=== PATIENT | female | born 1945 | race Caucasian/White ===

== ENCOUNTER 2016-09-01 16:13 | Inpatient (IN) | payer MEDICARE, BC ==
[~2016-09-01] VITALS: Ht 160 cm; Wt 58.0 kg
[~2016-09-01 16:13] MED LIST: DIOV160T6 PO; FOLI1 PO; LEVO75TA3 PO; LORA1TAB PO; METO25 PO; NEXI40CA PO; PRIS100T PO; THIA100T PO; XANA1TAB6 PO
[2016-09-01 16:38] LABS: MEAN CORPUSCULAR HGB CONC 36.3 % (32.0-36.0)
[2016-09-01] MEDS ORDERED: SODIUM CHLORIDE 0.9% FLUSH 5 ML FLUSH IVF PRN (16:45)
[2016-09-01] MEDS ORDERED: LORazepam 2 MG/ML VIAL IV PUSH ONE (16:45)
--- NOTE | 2016-09-01 16:54 | PD ---
HPI . I think I'm having a stroke. Chief Complaint: Neuro Time Seen by Provider: 16:35 Travel History International Travel<30 days: No Contact w/Intl Traveler<30days: No History of Present Illness HPI Patient presents with left arm and left leg numbness since about 4 AM. She states that she was in the bed. She is unsure what awakened her. She states the symptoms have persisted causing her to call 911. Patient reports that her a couple months ago. She states that they have been together since age 14. She is now living alone. PFSH Past Medical History Arthritis: Yes Asthma: No Anxiety: Yes Depression: Yes Heart Rhythm Problems: Yes (A FIB) Cancer: Yes (LEFT BREAST CA) Cardiovascular Problems: Yes High Cholesterol: No Chemotherapy: No Chest Pain: No Congestive Heart Failure: No Coronary Artery Disease: Yes Diabetes: No Diminished Hearing: Yes Endocrine: Yes Gastrointestinal Disorders: Yes (GASTRIC ULCERS) GERD: Yes Genitourinary: No Hiatal Hernia: No Hypertension: Yes Immune Disorder: No Implanted Vascular Access Dvce: No Musculoskeletal: Yes Neurologic: No Psychiatric: No Reproductive: No Respiratory: No Immunizations Current: Yes Pancreatitis: Yes Radiation Therapy: Yes Thyroid Disease: Yes (hypothyroid disease) Ulcer: Yes (peptic ulcers) Menopausal: Yes : 2 Para: 1 Miscarriage: 1 Past Surgical History Abdominal Surgery: Yes (LYSIS OF ADHESIONS ) Appendectomy: Yes Gynecologic Surgery: Yes Hysterectomy: Yes Pacemaker: No Other Surgery: Yes (COLDWELL/SINUS REPAIR) Social History Alcohol Use: Yes (drinks every day 2-3 glasses of heike jones) Tobacco Use: No (quit 20+ yrs ago smoked cigs) Substance Use: Yes (DRINKS 4 GLASSES HEIKE JONES DAILY) Allergies-Medications (Allergen,Severity, Reaction): Coded Allergies: Sulfa (Verified Allergy, Intermediate, rash, 05/18/16) Reported Meds & Prescriptions Reported Meds & Active Scripts Active Vitamin B1 (Thiamine HCl) 100 Mg Tab 100 Mg PO DAILY Metoprolol Tartrate 25 mg (Metoprolol Tartrate) 25 Mg Tab 12.5 Mg PO Q12HR 30 Days Nexium (Esomeprazole Magnesium) Esomeprazole Magnesium 40 mg Cap 40 Mg PO DAILY Reported Diovan (Valsartan) 160 Mg Tab 160 Mg PO DAILY Xanax 1 mg (Alprazolam) Alprazolam 1 mg Tab 1 Tab PO DAILY Levothyroxine 75 mcg (Levothyroxine Sodium) Unknown Strength Tab Unknown Dose PO DAILY Lorazepam 1 Mg Tab 1 Mg PO DAILY PRN Pristiq (Desvenlafaxine Succinate) 100 Mg Aleks 100 Mg PO DAILY Folate 1 Mg Tab (Folic Acid) 1 Mg Tab 1 Mg PO DAILY Review of Systems Except as stated in HPI: all other systems reviewed are Neg General / Constitutional: No: Fever, Chills Neurologic: Positive: Weakness, Focal Abnormalities, Tremor, Paresthesia (LUE> LLE), No: Change in Mentation, Slurred Speech Psychiatric: Positive: Anxiety Physical Exam Narrative GENERAL: Physically tremulous and anxious appearing woman. SKIN: Warm and dry. HEAD: Atraumatic. Normocephalic. EYES: Pupils equal and round. ENT: No nasal bleeding or discharge. Mucous membranes pink and moist. NECK: Trachea midline. Neck supple. No cervical lymphadenopathy. CARDIOVASCULAR: Regular rate and rhythm. RESPIRATORY: No accessory muscle use. Lungs are clear with full air movement throughout. GASTROINTESTINAL: Abdomen soft, non-tender, nondistended. MUSCULOSKELETAL: No obvious deformities. No edema. NEUROLOGICAL: Awake and alert. No obvious cranial nerve deficits. Motor grossly within normal limits. Normal speech. Visibly tremulous. PSYCHIATRIC: Appropriate mood and affect; insight and judgment normal. Data Data Last Documented VS Vital Signs Date Time Temp Pulse Resp B/P Pulse Ox O2 Delivery O2 Flow Rate FiO2 09/01/16 17:13 98.8 87 18 176/88 100 Orders Electrocardiogram (09/01/16 16:35) Prothrombin Time / Inr (Pt) (09/01/16 16:35) Complete Blood Count With Diff (09/01/16 16:35) Comprehensive Metabolic Panel (09/01/16 16:35) Creatine Kinase (Cpk) (09/01/16 16:35) Troponin I (09/01/16 16:35) Urinalysis - C+S If Indicated (09/01/16 16:35) Ct Brain W/O Iv Contrast(Rout) (09/01/16 16:35) Chest, Single Ap (09/01/16 16:35) Ecg Monitoring (09/01/16 16:35) Iv Access Insert/Monitor (09/01/16 16:35) Oximetry (09/01/16 16:35) Sodium Chloride 0.9% Flush (Ns Flush) (09/01/16 16:45) Lorazepam Inj (Ativan Inj) (09/01/16 16:45) Ondansetron Odt (Zofran Odt) (09/01/16 17:45) Lorazepam (Ativan) (09/01/16 17:45) Cath For Specimen (09/01/16 18:15) Aspirin Chew (Aspirin Chew) (09/01/16 19:30) Labs Laboratory Tests Test 09/01/16 17:11 White Blood Count 7.6 TH/MM3 Red Blood Count 3.93 MIL/MM3 Hemoglobin 14.1 GM/DL Hematocrit 38.9 % Mean Corpuscular Volume 98.8 FL Mean Corpuscular Hemoglobin 35.9 PG Mean Corpuscular Hemoglobin 36.3 % Concent Red Cell Distribution Width 17.7 % Platelet Count 286 TH/MM3 Mean Platelet Volume 7.2 FL Neutrophils (%) (Auto) 69.4 % Lymphocytes (%) (Auto) 18.0 % Monocytes (%) (Auto) 11.8 % Eosinophils (%) (Auto) 0.2 % Basophils (%) (Auto) 0.6 % Neutrophils # (Auto) 5.3 TH/MM3 Lymphocytes # (Auto) 1.4 TH/MM3 Monocytes # (Auto) 0.9 TH/MM3 Eosinophils # (Auto) 0.0 TH/MM3 Basophils # (Auto) 0.0 TH/MM3 CBC Comment AUTO DIFF Differential Comment AUTO DIFF CONFIRMED Prothrombin Time 11.6 SEC Prothromb Time International 1.0 RATIO Ratio Sodium Level 137 MEQ/L Potassium Level 4.1 MEQ/L Chloride Level 103 MEQ/L Carbon Dioxide Level 20.6 MEQ/L Anion Gap 13 MEQ/L Blood Urea Nitrogen 14 MG/DL Creatinine 0.82 MG/DL Estimat Glomerular Filtration 69 ML/MIN Rate Random Glucose 90 MG/DL Calcium Level 9.2 MG/DL Total Bilirubin 0.6 MG/DL Aspartate Amino Transf 36 U/L (AST/SGOT) Alanine Aminotransferase 23 U/L (ALT/SGPT) Alkaline Phosphatase 85 U/L Total Creatine Kinase 64 U/L Troponin I LESS THAN 0.02 NG/ML Total Protein 7.7 GM/DL Albumin 4.2 GM/DL MDM Medical Decision Making Medical Screen Exam Complete: Yes Emergency Medical Condition: Yes Medical Record Reviewed: Yes Differential Diagnosis Differential diagnosis includes but is not limited to, CVA, anxiety, occult infection, electrolyte abnormality Narrative Course Patient presents for evaluation of left side numbness which started about 12 hours prior to presentation. She appears very anxious. CT head neg for acute change. Chest x-ray is negative to the radiologist's interpretation. Chest x-ray was independently viewed by me. CBC has an H&H of 0.1 and 38.9. White blood count 7.6. INR is 1.0. Chemistries are unremarkable. Troponin and CK are negative. 7:09 PM Patient remains in the ambulance bay. I have everything but a UA. She continues to complain with paresthesias in the left side. She is no longer tremulous. Physician Communication Physician Communication Dr. Park will admit for observation. Diagnosis Primary Impression: Paresthesias Additional Impression: Anxiety Admitting Information Admitting Physician Requests: Admit Condition: Stable Rebecca Delaney MD Sep 01, 2016 16:54
[2016-09-01 17:13] VITALS: BP 176/88; PULSE 87; RESP 18; TEMP 98.8; O2SAT 100
[2016-09-01 17:19] LABS: AUTOMATED NEUTROPHIL # 5.3 TH/MM3 (1.8-7.7); BASOPHIL % 0.6 % (0.0-2.0); EOSINOPHIL % 0.2 % (0.0-4.0); HEMATOCRIT 38.9 % (35.0-46.0); LYMPHOCYTE # 1.4 TH/MM3 (1.0-4.8); MEAN CELL VOLUME 98.8 FL (80.0-100.0); MEAN CORPUSCULAR HEMOGLOBIN 35.9 PG (27.0-34.0); MONO % 11.8 % (0.0-8.0); NEUT % 69.4 % (16.0-70.0); PLATELET COUNT 286 TH/MM3 (150-450); RED BLOOD COUNT 3.93 MIL/MM3 (4.00-5.30); RED CELL DISTRIBUTION WIDTH 17.7 % (11.6-17.2); WHITE BLOOD COUNT 7.6 TH/MM3 (4.0-11.0)
[2016-09-01 17:22] LABS: HEMO FLAGS AUTO DIFF
[2016-09-01 17:29] LABS: PROTHROMBIN TIME - PATIENT 11.6 SEC (9.8-11.6)
--- NOTE | 2016-09-01 17:37 | RADRPT ---
EXAM DATE/TIME: 09/01/2016 17:19 [facility] COMPARISON: CT BRAIN W/O CONTRAST, March 12, 2015, 0:40. INDICATIONS : Left-sided numbness and weakness. RADIATION DOSE: 45.53 CTDIvol (mGy) MEDICAL HISTORY : Hypothyroidism. Cardiovascular disease. Hypertension. Breast cancer. SURGICAL HISTORY : None. ENCOUNTER: Initial ACUITY: 1 day PAIN SCALE: 0/10 LOCATION: cranial TECHNIQUE: Multiple contiguous axial images were obtained of the head. Using automated exposure control and adj ustment of the mA and/or kV according to patient size, radiation dose was kept as low as reasonably a chievable to obtain optimal diagnostic quality images. FINDINGS: CEREBRUM: The ventricles are normal for age. No evidence of midline shift, mass lesion, hemorrhage or acute in farction. No extra-axial fluid collections are seen. POSTERIOR FOSSA: The cerebellum and brainstem are intact. The 4th ventricle is midline. The cerebellopontine angle i s unremarkable. EXTRACRANIAL: The visualized portion of the orbits is intact. SKULL: The calvaria is intact. No evidence of skull fracture. CONCLUSION: Normal examination for a patient of this age. No significant change has occurred. Monico Yanez MD on September 01, 2016 at 17:31 Board Certified Radiologist. This report was verified electronically.
[2016-09-01 17:43] LABS: ALT (GPT) 23 U/L (10-53); ANION GAP 13 MEQ/L (5-15); AST (GOT) 36 U/L (15-37); BICARBONATE 20.6 MEQ/L (21.0-32.0); BLOOD UREA NITROGEN 14 MG/DL (7-18); CHLORIDE 103 MEQ/L (98-107); GLOMERULAR FILTRATION RATE 69 ML/MIN (>89); POTASSIUM 4.1 MEQ/L (3.5-5.1); SODIUM (NA) 137 MEQ/L (136-145)
[2016-09-01] MEDS ORDERED: ONDANSETRON ODT 4 MG TAB PO ONE (17:45)
[2016-09-01] MEDS ORDERED: LORazepam 2 MG TAB SL ONE (17:45)
[2016-09-01 17:53] LABS: ALKALINE PHOSPHATASE 85 U/L (45-117); TOTAL BILIRUBIN ADULT 0.6 MG/DL (0.2-1.0)
[2016-09-01 17:57] LABS: CREATINE KINASE 64 U/L (26-192)
--- NOTE | 2016-09-01 18:07 | RADRPT ---
EXAM DATE/TIME: 09/01/2016 16:54 [facility] COMPARISON: CHEST PA & LAT, March 18, 2015, 1:49. INDICATIONS : Short of breath MEDICAL HISTORY : Cardiovascular disease. SURGICAL HISTORY : None. ENCOUNTER: Initial ACUITY: 1 day PAIN SCORE: 0/10 LOCATION: Bilateral chest FINDINGS: A single view of the chest demonstrates the lungs to be symmetrically aerated without evidence of mas s, infiltrate or effusion. The cardiomediastinal contours are unremarkable. Osseous structures are intact. CONCLUSION: No evidence of acute cardiopulmonary disease. Estevan Reed MD on September 01, 2016 at 18:05 Board Certified Radiologist. This report was verified electronically.
[2016-09-01 18:11] LABS: SCAN/DIFF AUTO DIFF CONFIRMED
[2016-09-01] MEDS ORDERED: ASPIRIN 81 MG CHEW TAB TUBE ONE (19:30)
[2016-09-01] MEDS ORDERED: SODIUM CHLORIDE 0.9% FLUSH 5 ML FLUSH FLUSH PRN (20:15)
[2016-09-01] MEDS ORDERED: ESOMEPRAZOLE MAGNESIUM 40 MG PO SCH (20:15)
[2016-09-01] MEDS ORDERED: NALOXONE HCL 0.4 MG/ML AMP IV PRN (20:15)
[2016-09-01] MEDS ORDERED: LORazepam 1 MG TAB PO PRN (20:15)
[2016-09-01] MEDS ORDERED: PILL SPLITTER OTHER PRN (21:00)
[2016-09-01 22:22] LABS: BACTERIA, URINE RARE /hpf; BLOOD, URINE NEG (NEG); COMMENT (UR) CULT NOT INDICATED; CULTURE IF INDICATED CULT NOT INDICATED; GLUCOSE,URINE NEG (NEG); KETONE, URINE TRACE mg/dL (NEG); MUCUS URINE FEW /lpf (OCC); NITRITE,URINE NEG (NEG); SQUAMOUS EPITHELIAL CELL URINE 7 /hpf (0-5); URINE COLOR YELLOW (YELLW/STRAW)
[2016-09-02] VITALS (9 sets, daily range): BP systolic 137–186; BP diastolic 67–90; PULSE 65–89; RESP 18; TEMP 97.7–98.2; O2SAT 95–98
[2016-09-02] MEDS: SODIUM CHLORIDE 0.9% FLUSH 5 ML FLUSH FLUSH SCH ×3 (01:52→20:52)
[2016-09-02] MEDS: SODIUM CHLOR 0.9% 1000 ML INJ 1,000 ML IV SCH ×4 (01:52→20:51)
[2016-09-02] MEDS: PANTOPRAZOLE SOD 40 MG DELAYED RELEASE TAB PO SCH ×2 (01:52→08:50)
[2016-09-02] MEDS: HEPARIN SODIUM - SQ 10,000 UNITS/ML VIAL SQ SCH ×2 (01:53→08:50)
[2016-09-02] MEDS: METOPROLOL TARTRATE 25 MG TAB PO SCH ×3 (01:53→20:50)
[2016-09-02] MEDS: ONDANSETRON HCL 4 MG/2 ML VIAL IVP PRN (03:25)
[2016-09-02] MEDS: ACETAMINOPHEN 325 MG TAB PO PRN ×2 (05:37→16:37)
[2016-09-02 07:56] LABS: AUTOMATED NEUTROPHIL # 3.9 TH/MM3 (1.8-7.7); BASOPHIL % 0.3 % (0.0-2.0); EOSINOPHIL % 0.7 % (0.0-4.0); HEMATOCRIT 38.4 % (35.0-46.0); HEMO FLAGS DIFF FINAL; LYMPH % 27.1 % (9.0-44.0); LYMPHOCYTE # 1.8 TH/MM3 (1.0-4.8); MEAN CELL VOLUME 100.8 FL (80.0-100.0); MEAN CORPUSCULAR HEMOGLOBIN 34.3 PG (27.0-34.0); MEAN CORPUSCULAR HGB CONC 34.1 % (32.0-36.0); NEUT % 59.9 % (16.0-70.0); PLATELET COUNT 259 TH/MM3 (150-450); RED BLOOD COUNT 3.81 MIL/MM3 (4.00-5.30); WHITE BLOOD COUNT 6.5 TH/MM3 (4.0-11.0)
[2016-09-02 08:04] LABS: BICARBONATE 23.4 MEQ/L (21.0-32.0); POTASSIUM 3.4 MEQ/L (3.5-5.1)
[2016-09-02] MEDS: VALSARTAN 160 MG TAB PO SCH (08:49)
[2016-09-02] MEDS: ALPRAZolam 1 MG TAB PO SCH (08:49)
[2016-09-02] MEDS: FOLIC ACID 1 MG TAB PO SCH (08:50)
[2016-09-02] MEDS: THIAMINE HCL 100 MG TAB PO SCH (08:50)
[2016-09-02] MEDS ORDERED: ASPIRIN 81 MG CHEW TAB CHEW SCH (09:00)
[2016-09-02] MEDS ORDERED: POTASSIUM CHLORIDE 20 MEQ CONTROLLED RELEASE TAB PO ONE (09:00)
[2016-09-02] MEDS ORDERED: [UNRECOGNIZED DRUG - OTHER] PO SCH (09:00)
[2016-09-02] MEDS ORDERED: [UNRECOGNIZED DRUG - OTHER] PO SCH (09:00)
[2016-09-02] MEDS: LEVOTHYROXINE SODIUM 75 MCG TAB PO SCH (09:01)
--- NOTE | 2016-09-02 09:14 | MH ---
cc: AISHWARYA GORDILLO,JAWED DATE OF ADMISSION: 09/01/2016 DATE OF : 1945 REASON FOR ADMISSION Numbness of the left side of the body and some slurring of speech. HISTORY OF PRESENT ILLNESS The patient is a very pleasant 70-year female who is known to our service from past few admissions. The patient is not a very good historian. As per patient yesterday she started having numbness. She does not know the exact timing. The numbness was in the left upper extremity and lower extremity and it seems like the left half of the body as per patient. Also had some slurring of speech. Later on she came to the ER. In the ER she still had some slurring of speech, but as per patient today she has no slurring of speech at all, and she has no more numbness or tingling sensation at all. She did not have any headache or dizziness or any visual or hearing problem or swallowing problem. The patient did not have any other associated symptoms. At present the patient is feeling better. She has no complaint. The patient usually drinks three drinks a day which is usual for her. She drinks Garrett Moreau, three shots a day. PAST MEDICAL HISTORY 1. Chronic pancreatitis. 2. Arthritis. 3. Anxiety. 4. Depression. 5. Atrial fibrillation history in the past. 6. History of left breast cancer. 7. Gastric ulcer. 8. GERD. 9. Hypertension. 10.History of fluid retention in the past. 11.Hypothyroidism. 12.History of lysis of adhesions. 13.Sinus surgery. MEDICATIONS Reviewed. Please see EMR. ALLERGIES The patient has allergy to SULFA DRUGS. FAMILY HISTORY Significant for cancer. REVIEW OF SYSTEMS As described above, otherwise negative for 10 systems. SOCIAL HISTORY The patient does not smoke or do any drugs. She is . Her last November. She is still missing him. She is somewhat depressed but she denies any suicidal thoughts or ideation. She drinks three shots of Garrett Moreau every day. PHYSICAL EXAMINATION GENERAL: The patient is alert and oriented x3, thin-built, seems well-nourished, lying on the bed without any apparent distress. VITAL SIGNS: Afebrile. Pulse 70, respiratory rate 18, blood pressure 186/90, pulse ox 98% on room air. HEENT: Head is atraumatic, normocephalic. Negative conjunctival injection. No icterus. Mouth unremarkable. NECK: Supple. No increased JVD. Negative thyromegaly. Central trachea. LUNGS: Clear to auscultation. HEART: S1 and 2 audible. Unable to hear any S3 gallop. ABDOMEN: Soft, nontender. No organomegaly. Positive bowel sounds. EXTREMITIES: No cyanosis or pedal edema appreciated. DEPORTATION EXAMINER: Grossly intact. SKIN: Warm and dry. PSYCHIATRIC: Appropriate mood and affect at present. INVESTIGATIONS Chest x-ray shows no evidence of acute cardiopulmonary disease. CT of the head showed normal examination for a patient of this age. No significant change has occurred. EKG was done yesterday showing normal sinus rhythm without any acute ST-T wave changes. ASSESSMENT 1. Left-sided numbness with slurring of speech, resolved. TIA rule out CVA. 2. Chronic alcohol abuse. Counseling done again. 3. History of chronic pancreatitis. 4. Depression and anxiety. 5. Hypothyroidism. 6. Hypertension, uncontrolled on admission. 7. History of gastric ulcer in the past. 8. History of atrial fibrillation in the past. PLAN The patient has been admitted to the floor. Plan for MRI, MRA, 2-D echo and carotid ultrasound. Neurology consult. IV hydration. Aspirin. PPI for GI prophylaxis. SCDs for DVT prophylaxis. Physical therapy. Continue some of the home medication. Will restart Pristiq and Synthroid. Counseled about stopping alcohol. Discussed with the patient in detail. Further recommendation to follow as per patient progress. See orders. Lizeth Chase MD JP/LEX /8:41 AM 8:54 AM
--- NOTE | 2016-09-02 11:22 | RADRPT ---
EXAM DATE/TIME: 09/02/2016 08:56 [facility] COMPARISON: No previous studies available for comparison. INDICATIONS : Transient ischemic attack. MEDICAL HISTORY : Hypothyroidism. Hypertension. Pancreatitis. Left breast carcinoma. CAD. Afib. Gastric and peptic ulce rs. Lysis of adhesions. GERD. Arthritis. Substance use. Depression. Anxiety. SURGICAL HISTORY : Appendectomy. Hysterectomy. Radiation therapy. Blood transfusions. ENCOUNTER: Initial ACUITY: 1 day PAIN SCORE: 0/10 LOCATION: Bilateral neck PEAK SYSTOLIC VELOCITIES (cm/sec): ICA/CCA RATIO: Right: 1.5 Left: 1.2 ICA: Right: 91 Left: 89 CCA: Right: 60 Left: 72 ECA: Right: 65 Left: 72 VERTEBRAL: Right: 27 antegrade Left: 48 antegrade Elevated flow velocities and ICA/CCA ratios have been found to correlate with increased degrees of vessel stenosis, calculated as percentage of diameter relative to a normal segment of distal ICA/CCA FINDINGS: RIGHT CAROTID: No significant stenosis is visualized. The waveforms are within normal limits. LEFT CAROTID: No significant stenosis is visualized. The waveforms are within normal limits. VERTEBRAL ARTERIES: Antegrade flow is seen in both vertebral arteries. MISCELLANEOUS: None. CONCLUSION: 1. Mild visible plaque formation in the carotid arteries bilaterally especially on the carotid bifurc ations. No hemodynamically significant stenosis. Monico Yanez MD on September 02, 2016 at 11:19 Board Certified Radiologist. This report was verified electronically.
--- NOTE | 2016-09-02 13:15 | RADRPT ---
EXAM DATE/TIME: 09/02/2016 10:46 [facility] COMPARISON: No previous studies available for comparison. INDICATIONS : Left sided numbness. MEDICAL HISTORY : Hypertension. Carcinoma, breast. SURGICAL HISTORY : Hysterectomy. Lt breast surgery. ENCOUNTER: Subsequent ACUITY: 1 day PAIN SCORE: 0/10 LOCATION: cranial TECHNIQUE: Multiplanar, multisequence MRI of the brain was performed without contrast. FINDINGS: CEREBRUM: The ventricles are normal for age. No evidence of midline shift, mass lesion, hemorrhage or acute in farction. No extraaxial fluid collections are seen. The pituitary gland and suprasellar cistern are normal in configuration. WHITE MATTER: Scattered punctate areas of T2 prolongation in the periventricular white matter which are likely plant equipment engineer royer ischemic in etiology. POSTERIOR FOSSA: The cerebellum and brainstem are intact. The 4th ventricle is midline. The cerebellopontine angle is unremarkable. The cerebellar tonsils are normal in position. DIFFUSION IMAGING: No focal areas of restricted diffusion are seen. No evidence of acute infarction. EXTRACRANIAL: The visualized portions of the orbits and paranasal sinuses are unremarkable. CONCLUSION: Mild chronic appearing white matter disease. No acute intracranial findings. Estevan Palacio MD on September 02, 2016 at 13:12 Board Certified Radiologist. This report was verified electronically.
--- NOTE | 2016-09-02 13:18 | RADRPT ---
EXAM DATE/TIME: 09/02/2016 10:46 [facility] COMPARISON: No previous studies available for comparison. INDICATIONS : Left sided sided numbness. MEDICAL HISTORY : Hypertension. Carcinoma, breast. SURGICAL HISTORY : Hysterectomy. Lt breast surgery. ENCOUNTER: Subsequent ACUITY: 1 day PAIN SCORE: 0/10 LOCATION: cranial Please note a normal MRA of the brain does not entirely exclude the possibility of a small aneurysm, nor the possibility of distal intracranial vessel disease. TECHNIQUE: 3D time of flight MRA was performed. Source images, multiplanar STS MIP, and 3D volume MIP reconstru ctions were reviewed. FINDINGS: There is excellent visualization of the major intracranial arteries out to the second-order branch ve ssels. There is no evidence for aneurysm, vessel truncation or stenosis, and no evidence for vascula r malformation. CONCLUSION: No acute platinum of Maki vascular abnormalities. Estevan Palacio MD on September 02, 2016 at 13:14 Board Certified Radiologist. This report was verified electronically.
--- NOTE | 2016-09-02 14:34 | EKG ---
Date Performed: 09/01/2016 Time Performed: 21:07:52 PTAGE: 71 years EKG: Sinus rhythm NORMAL ECG PREVIOUS TRACING : 05/18/2016 16.48 Since previous tracing, no significant change noted DOCTOR: Prudence White Interpretating Date/Time 09/02/2016 14:26:41
--- NOTE | 2016-09-02 14:34 | EKG ---
Date Performed: 09/02/2016 Time Performed: 04:14:06 PTAGE: 71 years EKG: Sinus rhythm NORMAL ECG PREVIOUS TRACING : 09/01/2016 21.07 Since previous tracing, no significant change noted DOCTOR: Prudence White Interpretating Date/Time 09/02/2016 14:26:34
--- NOTE | 2016-09-02 17:34 | EC ---
Study Study Date:09/02/2016 STUDY CONCLUSIONS SUMMARY LEFT VENTRICLE: The cavity size was normal. Systolic function was normal. The estimated ejection fraction was in the range of 60% to 65%. Wall motion was normal; there were no regional wall motion abnormalities. If LV function is below 40, please consider prescribing an ACEI or ARB or document rationale for non-use. PROCEDURE DATA STUDY STATUS: Elective. Procedure: Transthoracic echocardiography. Image quality was good. Scanning was performed from the parasternal, apical, and subcostal acoustic windows. Study completion: The patient tolerated the procedure well. Transthoracic echocardiography. M-mode, complete 2D, complete spectral Doppler, and color Doppler. Height: Height: 61in. Weight: Weight: 126.7lb. Body mass index: BMI: 24kg/m^2. Body surface area: BSA: 1.56m^2. Patient status: Inpatient. CARDIAC ANATOMY LEFT VENTRICLE: The cavity size was normal. Systolic function was normal. The estimated ejection fraction was in the range of 60% to 65%. Wall motion was normal; there were no regional wall motion abnormalities. AORTIC VALVE: Trileaflet; mildly thickened leaflets. Doppler: There was no stenosis. No significant regurgitation. Valve area: 3.11cm^2 (Vmax). Indexed valve area: 1.99cm^2/m^2 (Vmax). MITRAL VALVE: The valve appears to be grossly normal. Doppler: There was no evidence for stenosis. Trace regurgitation. Peak gradient: 3mm Hg (D). LEFT ATRIUM: The atrium was normal in size. ATRIAL SEPTUM: No defect or patent foramen ovale was identified. RIGHT VENTRICLE: The cavity size was normal. Systolic function was normal. PULMONIC VALVE: Not well visualized. Doppler: There was no evidence for stenosis. No significant regurgitation. TRICUSPID VALVE: The valve appears to be grossly normal. Doppler: There was no evidence for stenosis. Trace regurgitation. PERICARDIUM: There was no pericardial effusion. Patient weight: 126.7lb _Ejection fraction:_ 65-75% _Fractional shortening:_ 32% up to 5Kg 5-11.5Kg 11.6-22.9Kg 23-45Kg 45-57Kg Aortic Root 7-13 <17 13-22 17-27 17-27 LA diam 6-13 <23 24-38 33-47 37-40 RVID 10-17 7-15 7-15 7-18 8-17 LVIDd 12-22 <32 24-38 33-47 37-40 LVPW 2-4 3-6 5-7 6-8 7-8 IVS 2-4 3-6 5-7 6-8 7-8 BASIC MEASUREMENTS ADULT NORMAL Left ventricle LV internal dimension, ED, chordal 43.7 mm 43-52 level, PLAX LV internal dimension, ES, chordal 28.1 mm 23-38 level, PLAX Fractional shortening, chordal level, 36 % >29 PLAX LV posterior wall thickness, ED 6.43 mm IVS/LVPW ratio, ED *1.43 <1.3 Ventricular septum Septal thickness, ED 9.21 mm Aortic valve Leaflet separation 21 mm 15-26 BASIC MEASUREMENTS ADULT NORMAL Aortic valve Leaflet separation 21 mm 15-26 Aorta Root diameter, ED 25 mm 20-37 Left atrium Anterior-posterior dimension, ES 37 mm 19-40 Anterior-posterior dimension index, ES *2.37 cm/m^2 <2.2 LA/aortic root ratio 1.48 DOPPLER MEASUREMENTS ADULT NORMAL Main pulmonary artery Pressure, S 23 mm Hg =30 Aortic valve Peak velocity, S 105 cm/s Valve area, Vmax 3.11 cm^2 Valve area index, Vmax 1.99 cm^2/m^2 Mitral valve Peak E-wave velocity 83.4 cm/s Peak A-wave velocity 58.2 cm/s Deceleration time 218 ms 150-230 Peak gradient, D 3 mm Hg Peak E/A ratio 1.4 Maximal regurgitant velocity 332 cm/s Tricuspid valve Regurgitant peak velocity 200 cm/s Peak RV-RA gradient, S 16 mm Hg Systemic veins Estimated CVP 10 mm Hg Right ventricle RV pressure, S 26 mm Hg <30 Pulmonic valve Peak velocity, S 92.3 cm/s LEGEND: Mean values are shown as u=mean value. Asterisk (*) lopez values outside specified normal range. Prepared and signed by Vinicius Rogers [id number]
[2016-09-02] MEDS ORDERED: ENOXAPARIN SODIUM 60 MG/0.6 ML SYRINGE SQ SCH (18:00)
[2016-09-02] MEDS ORDERED: WARFARIN SOD 5 MG TAB PO SCH (18:15)
[2016-09-02] MEDS: ENOXAPARIN SODIUM 60 MG/0.6 ML SYRINGE SQ SCH (18:40)
--- NOTE | 2016-09-02 18:40 | MB ---
cc: BERTHA HORNE M.D. DATE OF CONSULTATION: 09/02/2016 REASON FOR CONSULTATION TIA. HISTORY OF PRESENT ILLNESS Ms. Harvey is a very pleasant 71-year-old woman who suddenly developed some numbness involving the left arm and left leg, also felt weak on that side with difficulty lifting the arm. She had no other symptoms at the time, no slurred speech or headache. Her symptoms have since resolved. She feels that she is back to normal at the present time. Denies any previous history of stroke or TIA. PAST MEDICAL HISTORY 1. Chronic pancreatitis. 2. Arthritis. 3. Anxiety. 4. Depression. 5. History of atrial fibrillation in the past. 6. History of breast cancer. 7. GERD. 8. Peptic ulcer disease. 9. Hypertension. 10. Fluid retention. 11. Hypothyroidism. 12. Surgery for lysis of adhesions. 13. Sinus surgery. ALLERGIES SULFA DRUGS. SOCIAL HISTORY Does not smoke. She does drink alcohol three drinks daily. NEUROLOGIC EXAMINATION VITAL SIGNS: Her blood pressure is 145/79, pulse 75, respirations 18, temperature is 97 degrees. Higher cortical function: Alert, oriented x3. Speech is normal. Cranial nerves intact. Motor exam demonstrates 5/5 strength of all groups in both upper and lower extremities. There is no drift. Fine motor skills within normal limits. Reflexes are symmetric at 1+. There is no Babinski. IMAGING MRI of the brain is normal. MRA of the brain is within normal limits. Carotid ultrasound: Mild plaquing bilaterally without any hemodynamically significant stenosis. CT of the brain is normal. LABORATORY DATA White count 6500, hemoglobin 13.1, hematocrit 38%, platelet count 259,000. PT 11.6, INR 1. Sodium is 136, potassium 3.4, chloride 103, CO2 23, BUN is 12, creatinine 0.72, GFR is 80, AST 36, ALT is 23. EKG: Normal sinus rhythm. IMPRESSION TIA, now resolved. She did have an echocardiogram as well which is normal. Ejection fraction 60-65%. Left ventricular wall motion was normal with no abnormality. The aortic valve trileaflet, no regurgitation, no stenosis. Left atrial size normal. Atrial septum was normal with no PFO. The right ventricle was normal. Pulmonic valve normal. Tricuspid valve was also normal with trace regurgitation. Pericardium is normal. RECOMMENDATION I would recommend starting the patient on anticoagulation with Coumadin at the present time because of the history of atrial fibrillation in the past, although currently she is in sinus rhythm. Cannot rule out intermittent atrial fibrillation, would suggest a Cardiology consult to consider [facility] cardiac surgeon. If there is no evidence of any objective atrial fib in the future on monitor, could then switch from Coumadin to Plavix therapy. Thank you for asking me to see the patient in consultation. MD JULIANNA Kraft/ZACHARY /6:02 PM /6:08 PM
[2016-09-03] VITALS (9 sets, daily range): BP systolic 114–177; BP diastolic 74–92; PULSE 63–86; RESP 17–21; TEMP 97.7–98.9; O2SAT 96–100
[2016-09-03 05:44] LABS: INTERNATIONAL NORMALIZED RATIO 1.1 RATIO; PROTHROMBIN TIME - PATIENT 11.7 SEC (9.8-11.6)
[2016-09-03] MEDS: ENOXAPARIN SODIUM 60 MG/0.6 ML SYRINGE SQ SCH (05:59)
[2016-09-03] MEDS: LEVOTHYROXINE SODIUM 75 MCG TAB PO SCH (05:59)
[2016-09-03] MEDS: ALPRAZolam 1 MG TAB PO SCH (08:56)
[2016-09-03] MEDS: THIAMINE HCL 100 MG TAB PO SCH (08:56)
[2016-09-03] MEDS: PANTOPRAZOLE SOD 40 MG DELAYED RELEASE TAB PO SCH (08:56)
[2016-09-03] MEDS: FOLIC ACID 1 MG TAB PO SCH (08:57)
[2016-09-03] MEDS: VALSARTAN 160 MG TAB PO SCH (08:57)
[2016-09-03] MEDS: METOPROLOL TARTRATE 25 MG TAB PO SCH ×2 (08:57→20:23)
[2016-09-03] MEDS: SODIUM CHLORIDE 0.9% FLUSH 5 ML FLUSH FLUSH SCH ×2 (08:57→20:23)
--- NOTE | 2016-09-03 09:34 | HHI.PR ---
Subjective Remarks Patient is sleepy today Has somewhat low energy No other complaint Review of system for 10 point system otherwise unremarkable Objective Objective Results - Vital Signs Date Time Temp Pulse Resp B/P Pulse Ox O2 Delivery O2 Flow Rate FiO2 09/03/16 08:00 98.7 86 17 167/85 97 09/03/16 04:48 98.7 64 18 164/77 98 09/03/16 03:26 98.0 67 18 177/90 98 09/03/16 00:43 98.2 78 21 114/74 98 09/02/16 22:47 65 09/02/16 20:46 98.0 88 18 169/80 98 09/02/16 18:50 81 09/02/16 16:15 97.8 75 18 145/79 96 09/02/16 11:23 97.8 74 18 157/70 95 I/O 09/02/16 09/02/16 09/02/16 09/03/16 09/03/16 09/03/16 07:00 15:00 23:00 07:00 15:00 23:00 Intake Total 560 ml Balance 560 ml Intake Oral 560 ml # Voids 2 4 2 3 Result Diagram: 09/02/16 0635 09/02/16 0635 Other Results Laboratory Tests Test 09/03/16 04:37 Prothrombin Time 11.7 Prothromb Time International 1.1 Ratio Physical Exam Physical Exam GENERAL: The patient is alert and oriented x3, thin-built, seems well-nourished, lying on the bed without any apparent distress. VITAL SIGNS: Reviewed HEENT: Head is atraumatic, normocephalic. Negative conjunctival injection. No icterus. Mouth unremarkable. NECK: Supple. No increased JVD. Negative thyromegaly. Central trachea. LUNGS: Clear to auscultation. HEART: S1 and 2 audible. Unable to hear any S3 gallop. ABDOMEN: Soft, nontender. No organomegaly. Positive bowel sounds. EXTREMITIES: No cyanosis or pedal edema appreciated. COMPRESS TRUCKER: Grossly intact. SKIN: Warm and dry. PSYCHIATRIC: Appropriate mood and affect at present. A/P Assessment and Plan 1. Left-sided numbness with slurring of speech, resolved. TIA, ruleD out CVA. 2. Chronic alcohol abuse. Counseling done again. 3. History of chronic pancreatitis. 4. Depression and anxiety. 5. Hypothyroidism. 6. Hypertension, uncontrolled on admission. 7. History of gastric ulcer in the past. 8. History of atrial fibrillation in the past. PLAN Reviewed report of MRI, MRA, 2-D echo and carotid ultrasound. Appreciate Neurology consult. IV hydration. On Coumadin and Lovenox because patient has a history of atrial fibrillation it is mentioned in EKG in 2014. Patient wants Eliquis as her was on it. Will switch to Eliquis. Explained side effects and potential hazards if fall. Advised to stop alcohol COMPLETELY. PATIENT UNDERSTOOD VERY WELL. Plan for cardiology consult PPI for GI prophylaxis. Lovenox/Coumadin for DVT prophylaxis. Physical therapy. Continue some of the home medication, as indicated. Will restart Pristiq and Synthroid. Counseled about stopping alcohol again in detail with anticoagulants. Discussed with the patient in detail. Further recommendation to follow as per patient progress. Lizeth Chase MD Sep 03, 2016 09:34
[2016-09-03 10:00] LABS: HDL CHOLESTEROL 123.9 MG/DL (40.0-60.0)
[2016-09-03] MEDS ORDERED: INFLUENZA VIRUS VACCINE (QUADRIVALENT) 0.5 ML SYR IM ONE (10:00)
[2016-09-03] MEDS: APIXABAN 5 MG TABLET PO SCH ×2 (11:07→20:22)
[2016-09-03] MEDS: SODIUM CHLOR 0.9% 1000 ML INJ 1,000 ML IV SCH ×2 (13:00→22:48)
--- NOTE | 2016-09-03 14:26 | MB ---
cc: MEMO DEE DATE OF CONSULTATION: 09/03/2016 REASON FOR CONSULTATION: Wanted to see the patient for a cardiology consultation. She informed me that she has seen Dr. Cesar Al's group in the past and wanted consultation from there group. I therefore placed a consult to them and will leave further cardiac recommendations to them. MD KIT Cheung/abdulkadir /11:47 AM /2:25 PM
--- NOTE | 2016-09-03 18:50 | MB ---
cc: LILLIE ANDREWS M.D. DATE OF CONSULTATION: 09/03/2016 REASON FOR CONSULTATION: Possible TIA atrial fibrillation. REQUESTING DOCTOR: Dr. Chase. HISTORY OF PRESENT ILLNESS: The patient is a 70-year-old female who presented to the emergency room. She states she had weakness in the left arm and left leg of about one hours duration. She did not have any speech deficit. She did present to the emergency room and has been seen by a Dr. Saleh who feels that she most likely had a TIA. MRI did not show any evidence of stroke. Carotid Doppler showed no significant disease. The patient states that she has a history of atrial fibrillation in the past. She has seen Dr. Al in the past with the most recent visit being in 2009. I did review his office records and see no evidence of atrial fibrillation, though she did have some PACs. Her primary is Dr. Maxi Branch, although she has not seen him in a year. She has had negative stress tests in the past and has not had any recent chest pains. ALLERGIES: SULFA. HOME MEDICATIONS: 1. Levothyroxine 75 micrograms a day. 2. Valsartan 160 milligrams a day. 3. Alprazolam 1 milligram per day. 4. Pristiq 100 milligrams a day. 5. Folic acid 1 milligram a day. SOCIAL HISTORY: The patient was born in [place]. 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 She stopped smoking 20 years ago. She does have about three Garrett Moreau drinks a day. She is with her dying in November. PAST SURGICAL HISTORY: 1. Hysterectomy. 2. Breast cancer. 3. The medical record states she has also had surgery for sinus repair. REVIEW OF SYSTEMS: Positive for depression and anxiety. She has been hypothyroid. A history of ulcers in the past and no prior history of stroke. No history of congestive heart failure. No history of diabetes. PHYSICAL EXAMINATION: GENERAL: A pleasant cooperative female who is resting comfortably in no with distress. She is awake and alert, neurologically intact. VITAL SIGNS: Blood pressure is 114/74, pulse 78 and regular. HEAD, EYES, EARS, NOSE, THROAT: Pupils react to light. Fundi not examined. The tongue is moist and midline. LUNGS: Clear. CARDIAC: Exam showed a regular rhythm. No murmurs heard. ABDOMEN: The abdomen is soft. No liver or spleen palpable. EXTREMITIES: She has intact peripheral pulses. LABORATORY: Hemoglobin was 13.1, hematocrit 38.4. Sodium 136, potassium 4.1, and will repeat at 3.4. Troponin less than 0.02. Nonfasting sugar 80, BUN 12, creatinine 0.72, cholesterol 181 with an LDL of 48 and HDL of 124. EKGS: Electrocardiogram shows sinus rhythm. IMPRESSION: 1. Probable TIA. 2. History of breast cancer. DISCUSSION AND RECOMMENDATIONS: The patient has had an echocardiogram showing normal ventricular function. No significant valvular disease. Left atrial size is normal. 1. I would agree with Dr. Saleh's recommendation to put her on warfarin. 2. I would recommend that she follow with Dr. Al as an outpatient at which time she can wear an event monitor to see whether she has had any recent episodes of atrial fibrillation. 3. It is okay with me for her to be discharged to follow with Dr. Al as an outpatient. Thank you for asking us to see her. MD DAKSHA Castillo/MIGUEL /1:35 PM /6:41 PM
[2016-09-04] VITALS (8 sets, daily range): BP systolic 139–178; BP diastolic 68–89; PULSE 63–82; RESP 18–20; TEMP 96.8–98.5; O2SAT 95–98
[2016-09-04] MEDS: LEVOTHYROXINE SODIUM 75 MCG TAB PO SCH (06:22)
[2016-09-04 07:45] LABS: INTERNATIONAL NORMALIZED RATIO 1.1 RATIO; PROTHROMBIN TIME - PATIENT 12.5 SEC (9.8-11.6)
[2016-09-04] MEDS: PANTOPRAZOLE SOD 40 MG DELAYED RELEASE TAB PO SCH (08:20)
[2016-09-04] MEDS: ALPRAZolam 1 MG TAB PO SCH (08:20)
[2016-09-04] MEDS: METOPROLOL TARTRATE 25 MG TAB PO SCH ×2 (08:20→23:10)
[2016-09-04] MEDS: APIXABAN 5 MG TABLET PO SCH ×2 (08:20→23:10)
[2016-09-04] MEDS: FOLIC ACID 1 MG TAB PO SCH (08:20)
[2016-09-04] MEDS: THIAMINE HCL 100 MG TAB PO SCH (08:20)
[2016-09-04] MEDS: VALSARTAN 160 MG TAB PO SCH (08:20)
[2016-09-04] MEDS: SODIUM CHLORIDE 0.9% FLUSH 5 ML FLUSH FLUSH SCH ×2 (08:21→23:11)
[2016-09-04] MEDS: ONDANSETRON HCL 4 MG/2 ML VIAL IVP PRN (08:21)
[2016-09-04] MEDS ORDERED: SODIUM CHLOR 0.9% 1000 ML INJ 1,000 ML IV SCH (08:26)
[2016-09-04] MEDS ORDERED: LORazepam 2 MG/ML VIAL IV PUSH PRN (08:30)
[2016-09-04] MEDS ORDERED: FLUMAZENIL 1 MG/10 ML VIAL IV PUSH PRN (08:30)
[2016-09-04] MEDS ORDERED: LORazepam 1 MG TAB PO PRN (08:30)
[2016-09-04] MEDS ORDERED: SODIUM CHLORIDE 0.9% FLUSH 5 ML FLUSH IV FLUSH PRN (08:30)
[2016-09-04] MEDS: SODIUM CHLOR 0.9% 1000 ML INJ 1,000 ML IV SCH (08:31)
--- NOTE | 2016-09-04 08:36 | HHI.PR ---
Subjective Remarks Patient is nauseous from this morning Feeling weak and tired As per RN questionable some confusion Patient is weak and ill looking. She knows she is in [facility]. She knows the president but doesn't know month year per day. Some mild abdominal discomfort No diarrhea No constipation No other complaint Review of system for 12 point system otherwise unremarkable Objective Objective Results - Vital Signs Date Time Temp Pulse Resp B/P Pulse Ox O2 Delivery O2 Flow Rate FiO2 09/04/16 04:15 98.3 70 20 150/80 95 09/04/16 00:02 98.2 71 20 148/80 96 09/03/16 21:49 98.1 71 20 170/92 96 09/03/16 19:50 98.9 75 18 160/75 100 09/03/16 16:00 98.7 63 18 162/74 100 09/03/16 12:04 97.7 69 18 166/83 99 09/03/16 08:45 68 I/O 09/03/16 09/03/16 09/03/16 09/04/16 09/04/16 09/04/16 07:00 15:00 23:00 07:00 15:00 23:00 Intake Total 920 ml Balance 920 ml Intake Oral 920 ml # Voids 3 4 2 Result Diagram: 09/02/16 0635 09/02/16 0635 Other Results Laboratory Tests Test 09/03/16 09/04/16 08:37 07:06 Triglycerides Level 85 Cholesterol Level 181 LDL Cholesterol 40 HDL Cholesterol 123.9 Cholesterol/HDL Ratio 1.46 Prothrombin Time 12.5 Prothromb Time International 1.1 Ratio Physical Exam Physical Exam GENERAL: The patient is alert, thin-built, seems Ill and weak looking, lying on the bed without any apparent distress. VITAL SIGNS: Reviewed HEENT: Head is atraumatic, normocephalic. Negative conjunctival injection. No icterus. Mouth unremarkable. NECK: Supple. No increased JVD. Negative thyromegaly. Central trachea. LUNGS: Clear to auscultation. HEART: S1 and 2 audible. Unable to hear any S3 gallop. ABDOMEN: Soft, nontender. No organomegaly. Positive bowel sounds. EXTREMITIES: No cyanosis or pedal edema appreciated. CALL CENTER ASSISTANT: Grossly intact. SKIN: Warm and dry. PSYCHIATRIC: Appropriate mood and affect at present. A/P Assessment and Plan 1. Left-sided numbness with slurring of speech, resolved. TIA, ruleD out CVA. 2. Chronic alcohol abuse. Counseling done again. 3. History of chronic pancreatitis. 4. Depression and anxiety. 5. Hypothyroidism. 6. Hypertension, uncontrolled on admission. 7. History of gastric ulcer in the past. 8. History of atrial fibrillation in the past. PLAN EtOH withdrawal will monitor in-house IV hydration Benzodiazepine on when necessary basis Thiamine Seizure precaution Discussed with installation & maintenance executive on phone continue Eliquis EKG from 2014 reviewed no atrial fibrillation discussed with installation & maintenance executive as well. Reviewed report of MRI, MRA, 2-D echo and carotid ultrasound. Appreciate Neurology consult. Eliquis. Explained side effects and potential hazards if fall. Advised to stop alcohol COMPLETELY. PATIENT UNDERSTOOD VERY WELL. PPI for GI prophylaxis. Eliquis for DVT prophylaxis. Physical therapy. Continue some of the home medication, as indicated. Will restart Pristiq and Synthroid. Counseled about stopping alcohol again in detail with anticoagulants. Discussed with the patient in detail. Discussed with RN Further recommendation to follow as per patient progress. Lizeth Chase MD Sep 04, 2016 08:36
[2016-09-04] MEDS ORDERED: SODIUM CHLORIDE 0.9% FLUSH 5 ML FLUSH IV FLUSH SCH (09:00)
--- NOTE | 2016-09-04 12:36 | HHI.PR ---
Review/Management Diagnosis TIA--resolved ? history of afib per patient Plan recommend continuing anticoagulation and follow up with Dr Al as out patient Diagnosis/Plan: Subjective Subjective Comments No acute events reported No further episodes of focal weakness or numbness Dr Roach's consult appreciated She is on eliquis. Active Medications Current Medications Medications (Trade) Dose Ordered Sig/Veronica Route Start Time Stop Time Status Last Admin (NS 1000 ml Inj) 1,000 ml @ 100 mls/hr Q10H IV 09/01/16 21:00 09/04/16 08:31 (NS Flush) 2 ml UNSCH PRN FLUSH 09/01/16 20:15 (NS Flush) 2 ml BID FLUSH 09/01/16 21:00 09/04/16 08:21 (Tylenol) 650 mg Q4H PRN PO 09/01/16 20:15 09/02/16 16:37 (Zofran Inj) 4 mg Q6H PRN IVP 09/01/16 20:15 09/04/16 08:21 (Narcan Inj) 0.4 mg UNSCH PRN IV 09/01/16 20:15 (Xanax) 1 mg DAILY PO 09/02/16 09:00 09/04/16 08:20 (Folate) 1 mg DAILY PO 09/02/16 09:00 09/04/16 08:20 (Ativan) 1 mg DAILY PRN PO 09/01/16 20:15 09/02/16 21:04 (Lopressor) 12.5 mg Q12HR PO 09/01/16 21:00 09/04/16 08:20 (Vitamin B1) 100 mg DAILY PO 09/02/16 09:00 09/04/16 08:20 Patient Own Medication PT OWN MED: [place]... DAILY PO 09/02/16 09:00 Hold (Pill Splitter) 1 ea UNSCH PRN OTHER 09/01/16 21:00 (Protonix) 40 mg DAILY PO 09/01/16 22:00 09/04/16 08:20 (Diovan) 160 mg DAILY PO 09/02/16 09:00 09/04/16 08:20 (Synthroid) 75 mcg DAILY@0600 PO 09/02/16 09:00 09/04/16 06:22 (Eliquis) 5 mg BID PO 09/03/16 09:45 09/04/16 08:20 (NS Flush) 2 ml UNSCH PRN IV FLUSH 09/04/16 08:30 IV Flush 2 ml 2 ml BID IV FLUSH 09/04/16 09:00 (NS 1000 ml Inj) 1,000 ml @ 70 mls/hr [id number] IV 09/04/16 08:26 (Ativan) 1 mg Q4H PRN PO 09/04/16 08:30 (Ativan Inj) 1 mg Q4H PRN IV PUSH 09/04/16 08:30 Allergies Allergies Coded Allergies Sulfa (Verified Allergy, Intermediate, rash, 05/18/16) Exam I&O / VS 09/03/16 09/03/16 09/04/16 15:00 23:00 07:00 Intake Total 920 ml Balance 920 ml Intake Oral 920 ml # Voids 4 2 Vital Signs Date Time Temp Pulse Resp B/P Pulse Ox O2 Delivery O2 Flow Rate FiO2 09/04/16 08:00 97.9 72 20 178/85 95 09/04/16 04:15 98.3 70 20 150/80 95 09/04/16 00:02 98.2 71 20 148/80 96 09/03/16 21:49 98.1 71 20 170/92 96 09/03/16 19:50 98.9 75 18 160/75 100 09/03/16 16:00 98.7 63 18 162/74 100 Exam Comments alert, oriented times three, speech is normal CN 2-12 normal Motor 5/5 BUE and BLE, no drift Objective Micro and Labs Laboratory Tests Test 09/04/16 07:06 Prothrombin Time 12.5 Prothromb Time International 1.1 Ratio Shakir Saleh PhD MD Sep 04, 2016 12:36
[2016-09-05 05:59] LABS: HEMATOCRIT 36.6 % (35.0-46.0); MEAN CELL VOLUME 103.6 FL (80.0-100.0); MEAN CORPUSCULAR HGB CONC 33.8 % (32.0-36.0); PLATELET COUNT 184 TH/MM3 (150-450); RED BLOOD COUNT 3.53 MIL/MM3 (4.00-5.30); RED CELL DISTRIBUTION WIDTH 17.8 % (11.6-17.2); REVIEW FLAG FINAL; WHITE BLOOD COUNT 6.1 TH/MM3 (4.0-11.0)
[2016-09-05] MEDS: LEVOTHYROXINE SODIUM 75 MCG TAB PO SCH (06:00)
[2016-09-05 06:25] LABS: BICARBONATE 25.1 MEQ/L (21.0-32.0)
[2016-09-05 07:55] VITALS: BP 155/84; PULSE 65; RESP 18; TEMP 97.6; O2SAT 98
--- NOTE | 2016-09-05 07:58 | HHI.PR ---
Subjective Subjective Remarks awakes to voice, oriented to self, place, year "2015", not sure of month mild paresthesia left arm c/o headache no vision changes no cp no sob no palpitations tele reviewed, SR, with one episode ST/PACs ? lives alone, daughter visiting from [place], staying for a week Review of Systems Constitutional Constitutional Remarks 12 point ROS completed, unreliable Vitals/Results Intake & Output 09/04/16 09/04/16 09/05/16 15:00 23:00 07:00 Intake Total 1320 ml Balance 1320 ml Intake Oral 1320 ml # Voids 1 8 Vital Signs Vital Signs Date Time Temp Pulse Resp B/P Pulse Ox O2 Delivery O2 Flow Rate FiO2 09/04/16 23:05 98.2 75 18 141/68 98 09/04/16 20:41 98.5 76 18 166/89 98 09/04/16 16:00 97.6 68 20 139/69 96 09/04/16 12:00 96.8 63 20 148/71 98 09/04/16 08:00 97.9 72 20 178/85 95 09/04/16 08:00 82 CBC/BMP: 09/05/16 0455 09/05/16 0455 Lab Results Laboratory Tests Test 09/05/16 04:55 White Blood Count 6.1 TH/MM3 Red Blood Count 3.53 MIL/MM3 Hemoglobin 12.4 GM/DL Hematocrit 36.6 % Mean Corpuscular Volume 103.6 FL Mean Corpuscular Hemoglobin 35.0 PG Mean Corpuscular Hemoglobin 33.8 % Concent Red Cell Distribution Width 17.8 % Platelet Count 184 TH/MM3 Mean Platelet Volume 7.9 FL Sodium Level 139 MEQ/L Potassium Level 4.0 MEQ/L Chloride Level 106 MEQ/L Carbon Dioxide Level 25.1 MEQ/L Anion Gap 8 MEQ/L Blood Urea Nitrogen 13 MG/DL Creatinine 0.83 MG/DL Estimat Glomerular Filtration 68 ML/MIN Rate Random Glucose 97 MG/DL Calcium Level 8.5 MG/DL Lipase 425 U/L Physical Exam General General Appearance: Well Developed, Well Nourished, No Acute Distress, Comfortable Eyes Eye Exam: Pupils Equal, Pupils Reactive Ears & Nose Ears & Nose Exam: Nasal [place]uc[place] Throat Throat Exam: Oral Muc[place] & Moist Neck Neck Exam: Neck Supple, Trachea Midline Pulmonary Resp Exam: Breath Sounds Equal Cardiology CV Exam: Regular, Good Perfusion Gastrointestinal/Abdomen GI Exam: Soft, Non-Tender, Bowel Sounds Present, Non-Distended Musculoskeletal MS Exam: Joints Intact Integumentary Skin Exam: Warm, Dry Extremeties Extremities Exam: No Edema, Pedal Pulses Palpable Neurologic Neuro Exam: Alert, Awake, Speech Clear, Moving All Extremities, No Focal Deficits VTE Prophylaxis VTE Prophylaxis Device: SCDs VTE Remarks Eliquis Assessment/Plan Assessment/Plan 1. Left-sided numbness with slurring of speech, resolved. Possible TIA 2. Chronic alcohol abuse. Counseling done again. 3. History of chronic pancreatitis. 4. Depression and anxiety. 5. Hypothyroidism. 6. Hypertension, uncontrolled on admission. 7. History of gastric ulcer in the past. 8. History of atrial fibrillation in the past, questionable. PLAN Monitor for ETOH withdrawal D/C IVF Benzodiazepine on when necessary basis Thiamine Seizure precaution Per cardiology, continue Eliquis EKG from 2014 reviewed no atrial fibrillation discussed with electrician ship as well. Reviewed report of MRI, MRA, 2-D echo and carotid ultrasound. Appreciate Neurology consult, recommends to continue Eliquis Attending discussed risk of Eliquis, and to stop ETOH COMPLETELY. PATIENT UNDERSTOOD VERY WELL. PPI for GI prophylaxis. Eliquis for DVT prophylaxis. PT/OT/ST Continue home meds Counseled about stopping alcohol again in detail with anticoagulants. CM for discharge planning [facility] Possible dc today Discussed with the patient in detail. Discussed with RN Discussed with Dr. Chase This pattient was seen by myself and Dr. Chase, this note is written on his behalf. Tita Ramsey Sep 05, 2016 07:58
[2016-09-05] MEDS ORDERED: APIX5TAB PO (08:01)
--- NOTE | 2016-09-05 08:02 | HHI.DCPOC ---
Discharge Care Plan Diagnosis: (1) TIA (transient ischemic attack) Your Health Problems Are: Loss of Movements Goals to Promote Your Health * To prevent worsening of your condition and complications * To maintain your health at the optimal level Directions to Meet Your Goals Take your medications as prescribed Follow your dietary instruction Follow activity as directed Keep your appointments as scheduled Take your immunizations and boosters as scheduled If your symptoms worsen call your PCP, if no PCP go to Urgent Care Center or Emergency Room Smoking is Dangerous to Your Health. Avoid second hand smoke Call the 24-hour hour crisis hotline for domestic abuse at Tita Ramsey Sep 05, 2016 08:01
--- NOTE | 2016-09-05 08:06 | HHI.DS ---
Discharge Summary Admission Date Sep 04, 2016 at 08:28 Discharge Date: Sep 05, 2016 Admitting Diagnosis paresthesias (1) TIA (transient ischemic attack) (2) ETOH abuse (3) History of atrial fibrillation (4) Depression (5) Paresthesias (6) Anxiety CBC/BMP: 09/05/16 0455 09/05/16 0455 Significant Findings Laboratory Tests Test 09/03/16 09/03/16 09/04/16 09/05/16 04:37 08:37 07:06 04:55 Prothrombin Time 11.7 SEC 12.5 SEC (9.8-11.6) (9.8-11.6) HDL Cholesterol 123.9 MG/DL (40.0-60.0) Red Blood Count 3.53 MIL/MM3 (4.00-5.30) Mean Corpuscular Volume 103.6 FL (80.0-100.0) Mean Corpuscular Hemoglobin 35.0 PG (27.0-34.0) Red Cell Distribution Width 17.8 % (11.6-17.2) Estimat Glomerular Filtration 68 ML/MIN (>89) Rate Lipase 425 U/L (73-393) Imaging Last Impressions Head Magnetic Resonance Angiography 09/02/16 0000 Signed Impressions: Service Date/Time: Friday, September 02, 2016 10:46 - CONCLUSION: No acute [place] vascular abnormalities. Estevan Palacio MD Carotid Artery Ultrasound 09/02/16 0000 Signed Impressions: Service Date/Time: Friday, September 02, 2016 08:56 - CONCLUSION: 1. Mild visible plaque formation in the carotid arteries bilaterally especially on the carotid bifurcations. No hemodynamically significant stenosis. Monico Yanez MD Brain MRI 09/02/16 0000 Signed Impressions: Service Date/Time: Friday, September 02, 2016 10:46 - CONCLUSION: Mild chronic appearing white matter disease. No acute intracranial findings. Estevan Palacio MD Head CT 09/01/16 1635 Signed Impressions: Service Date/Time: August 17:19 - CONCLUSION: Normal examination for a patient of this age. No significant change has occurred. Mnoico Yanez MD Chest X-Ray 09/01/165 Signed Impressions: Service Date/Time: August 16:54 - CONCLUSION: No evidence of acute cardiopulmonary disease. Estevan Reed MD Hospital Course The patient is a very pleasant 70-year female who is known to our service from past few admissions. The patient is not a very good historian. As per patient day before admit, she started having numbness. She does not know the exact timing. The numbness was in the left upper extremity and lower extremity and it seems like the left half of the body as per patient. Also had some slurring of speech. Later on she came to the ER. In the ER she still had some slurring of speech, but as per patient today she had no slurring of speech at all, and she has no more numbness or tingling sensation at all. She did not have any headache or dizziness or any visual or hearing problem or swallowing problem. The patient did not have any other associated symptoms. The patient usually drinks three drinks a day which is usual for her. She drinks Garrett Moreau, three shots a day. Pt. evaluated in ED, CT of head negative. Pt. was admitted for: 1. Left-sided numbness with slurring of speech, resolved. Possible TIA 2. Chronic alcohol abuse. Counseling done again. 3. History of chronic pancreatitis. 4. Depression and anxiety. 5. Hypothyroidism. 6. Hypertension, uncontrolled on admission. 7. History of gastric ulcer in the past. 8. History of atrial fibrillation in the past, questionable. During the course of the hospitalization, the following took place: Pt. admitted, neuro checks ordered. Neuro work up done Dr. Saleh consulted, believed pt. likely had TIA Echo done, EF 60% There was question of hx of afib, pt's margin trimmer consulted. Both cardiology and neurology recommended anticoagulant. Was monitored for ETOH withdrawal, remained stable. Benzodiazepine on when necessary basis ordered as well as Thiamine, seizure precaution EKG from 2015 reviewed no atrial fibrillation was discussed with margin trimmer as well. Reviewed report of MRI, MRA, 2-D echo and carotid ultrasound. PT/OT/ST ordered. Recommendations noted Was put on PPI for GI prophylaxis and continued on Eliquis for DVT prophylaxis. Continued on home meds Counseled about stopping alcohol in front of daughter, she needs to abstain completely. Pt. agreeable with stopping would follow up with PCP for further assistance Pt's condition improved, minimal paresthesia to left arm. Orientation improved, no slurring Stable for discharge CM consult for discharge planning to set up [facility] Discharge plan discussed with daughter, questions answered. Pt. discharged home in stable condition. Pt Condition on Discharge: Stable Discharge Disposition: Disch w/ Home Health Serv Discharge Instructions DIET: Follow Instructions for: Heart Healthy Diet Activities you can perform: Weight Bearing as Madelyn Other Activity Instructions: NO DRIVING STOP DRINKING ALCOHOL COMPLETELY Follow up Referrals: Cardiology - 2 Weeks with Cesar Al MD Neurology - 2 Weeks with Shakir Saleh PhD MD PCP Follow-up New Medications: Apixaban (Eliquis) 5 Mg Tab 5 MG PO BID stroke #60 Ref 1 TAB Continued Medications: Alprazolam (Xanax 1 mg) Alprazolam 1 mg Tab 1 TAB PO DAILY TAB () 100 Mg Nithin 100 MG PO DAILY NITHIN Esomeprazole Magnesium (Nexium) Esomeprazole Magnesium 40 mg Cap 40 MG PO DAILY gerd #30 Ref 0 CAP Folic Acid (Folate 1 Mg Tab) 1 Mg Tab 1 MG PO DAILY TAB Levothyroxine Sodium (Levothyroxine 75 mcg) Unknown Strength Tab Unknown Dose PO DAILY TAB Lorazepam (Lorazepam) 1 Mg Tab 1 MG PO DAILY PRN ANXIETY TAB Metoprolol Tartrate 25 mg (Metoprolol Tartrate 25 mg) 25 Mg Tab 12.5 MG PO Q12HR blood pressure Days 30 Ref 0 TAB Thiamine HCl (Thiamine HCl) 100 Mg Tab 100 MG PO DAILY vitamin suppliment #30 Ref 0 TAB () 160 Mg Tab 160 MG PO DAILY TAB Tita Ramsey Sep 05, 2016 08:06
[2016-09-05] MEDS: ALPRAZolam 1 MG TAB PO SCH (08:58)
[2016-09-05] MEDS: FOLIC ACID 1 MG TAB PO SCH (08:58)
[2016-09-05] MEDS: PANTOPRAZOLE SOD 40 MG DELAYED RELEASE TAB PO SCH (08:59)
[2016-09-05] MEDS: VALSARTAN 160 MG TAB PO SCH (08:59)
[2016-09-05] MEDS: SODIUM CHLORIDE 0.9% FLUSH 5 ML FLUSH FLUSH SCH (08:59)
[2016-09-05] MEDS: METOPROLOL TARTRATE 25 MG TAB PO SCH (08:59)
[2016-09-05] MEDS: APIXABAN 5 MG TABLET PO SCH (08:59)
[2016-09-05] MEDS: THIAMINE HCL 100 MG TAB PO SCH (08:59)
--- NOTE | 2016-09-05 11:49 | HHI.FF ---
Face to Face Verification Diagnosis: (1) TIA (transient ischemic attack) (2) History of atrial fibrillation (3) ETOH abuse Physical Therapy Order: Evaluate and Treat Speech Therapy Order: To Improve: Speech and communication skills, Cognitive skills Home Health Nursing Order: Medical education Signs/symptoms of disease process Nursing assessment with vital signs Service Desk Team Lead Order: To Evaluate: Living conditions/environment, Support services Order: To Provide: Long range planning, Community services I have seen patient Sita Harvey on 09/05/16. My clinical findings support the need for the requested home health care services because: Deconditioned w/ increased weakness Limited ability to care for self Impaired cognition/judgement High risk of falls I certify that my clinical findings support that this patient is homebound because: Impaired cognitive ability/safety Unsafe to leave home unassisted Need for psychosocial assistance Tita Ramsey Sep 05, 2016 11:49
[2016-09-05 12:12] VITALS: BP 172/80; PULSE 56; RESP 18; TEMP 98; O2SAT 96
[2016-11-16] MEDS ORDERED: WHEEMIS3 (15:54)
[2016-11-16] MEDS ORDERED: COMMODE 3-IN-11 MIS (15:54)
[2016-11-21] MEDS ORDERED: CHOL5000 PO (08:58)
[2016-11-21] MEDS ORDERED: VENL75XR PO (08:58)
[2016-11-21] MEDS ORDERED: THERTAB15 PO (08:58)
[2016-11-21] MEDS ORDERED: METO25TA3 PO (08:58)
[2016-11-21] MEDS ORDERED: VITA100T2 PO (08:58)
[2016-11-21] MEDS ORDERED: HYDR-3366 PO (08:58)
[2016-11-21] MEDS ORDERED: CLON1 PO (08:58)
[2016-11-21] MEDS ORDERED: DOCU1CAP39 PO (08:58)
[2016-11-21] MEDS ORDERED: APIX5TAB PO (08:58)
[2016-11-21] MEDS ORDERED: OYST250T4 PO (08:58)
[2016-11-21] MEDS ORDERED: LEVO-168 PO (08:58)
[2016-11-21] MEDS ORDERED: AMLO5 PO (08:58)
[2016-11-21] MEDS ORDERED: NEXI40CA PO (08:58)
== END 2016-09-05 14:05 | disposition home health service (06) | DRG 69 ==
LOC: NEDAMB 16:13 → NEDA 19:31 → NEPFCDU 09-02 01:35 → NEPGCP 09-03 20:13 → OBSVTOIN 09-04 08:28
PROVIDERS: ADMIT Specialist; ATTEND Specialist
DX: G45.9 Transient cerebral ischemic attack, unspecified (principal); K86.1 Other chronic pancreatitis; I48.91 Unspecified atrial fibrillation; R20.2 Paresthesia of skin; I10 Essential (primary) hypertension; E03.9 Hypothyroidism, unspecified; R47.81 Slurred speech; F41.9 Anxiety disorder, unspecified; H91.90 Unspecified hearing loss, unspecified ear; F32.9 Major depressive disorder, single episode, unspecified; M19.90 Unspecified osteoarthritis, unspecified site; I25.10 Atherosclerotic heart disease of native coronary artery without angina pectoris; K21.9 Gastro-esophageal reflux disease without esophagitis; Z85.3 Personal history of malignant neoplasm of breast; Z92.3 Personal history of irradiation; Z87.891 Personal history of nicotine dependence; Z87.11 Personal history of peptic ulcer disease; Z88.2 Allergy status to sulfonamides; F10.10 Alcohol abuse, uncomplicated
CPT/HCPCS: 70450; 70544; 70551; 71010; 80048; 80053; 80061; 81001; 82550; 82948; 83690; 84484; 85025; 85027; 85610; 93005; 93306; 93880; G0378; G8987-GP; G8988-GP; J1644; J1650; J2405; J7030

== ENCOUNTER 2016-10-07 21:08 | Observation (INO) | payer MEDICARE, BC ==
[~2016-10-07] VITALS: Ht 167.6 cm; Wt 64.3 kg
[~2016-10-07 21:08] MED LIST changes: +APIX5TAB PO
[2016-10-07 21:17] VITALS: BP 142/88; PULSE 97; RESP 20; TEMP 99.4; O2SAT 98
--- NOTE | 2016-10-07 21:35 | PD ---
HPI Chief Complaint: GI Complaint Time Seen by Provider: 21:27 Travel History International Travel<30 days: No Contact w/Intl Traveler<30days: No Traveled to known affect area: No History of Present Illness HPI As this 71-year-old female is complaining of vomiting. She says she's been vomiting throughout the day. She woke up this morning and started vomiting. She did have some diarrhea initially. She has not been able to eat anything all day. She is not complaining of abdominal pain. Review of old charts shows that she has been here with pancreatitis and alcohol withdrawal in the past. She admits to drinking alcohol on a regular basis. She has 2-3 glasses of Heike Jones per day She says she is not having abdominal pain now. She is complaining of severe nausea. She does take Ativan and Xanax for anxiety. She has a history of stroke and takes Eliquis daily PFSH Past Medical History Arthritis: Yes Asthma: No Anxiety: Yes Depression: Yes Heart Rhythm Problems: Yes (A FIB) Cancer: Yes (LEFT BREAST CA) Cardiovascular Problems: Yes High Cholesterol: No Chemotherapy: No Chest Pain: No Congestive Heart Failure: No Coronary Artery Disease: Yes Diabetes: No Diminished Hearing: Yes Endocrine: Yes Gastrointestinal Disorders: Yes (GASTRIC ULCERS) GERD: Yes Genitourinary: No Hiatal Hernia: No Hypertension: Yes Immune Disorder: No Implanted Vascular Access Dvce: No Medical other: Yes (FLUID RETENTION-ACID REFLUX) Musculoskeletal: Yes Neurologic: No Psychiatric: No Reproductive: No Respiratory: No Immunizations Current: Yes Pancreatitis: Yes Radiation Therapy: Yes Thyroid Disease: Yes (hypothyroid disease) Ulcer: Yes (peptic ulcers) Tetanus Vaccination: Unknown Influenza Vaccination: Yes ?: Not Menopausal: Yes : 2 Para: 1 Miscarriage: 1 Past Surgical History Abdominal Surgery: Yes (LYSIS OF ADHESIONS ) Appendectomy: Yes Gynecologic Surgery: Yes Hysterectomy: Yes Pacemaker: No Other Surgery: Yes (COLDWELL/SINUS REPAIR) Social History Alcohol Use: Yes (drinks every day 2-3 glasses of heike jones) Tobacco Use: No (quit 20+ yrs ago smoked cigs) Substance Use: Yes (DRINKS 4 GLASSES HEIKE JONES DAILY) Allergies-Medications (Allergen,Severity, Reaction): Coded Allergies: Sulfa (Verified Allergy, Intermediate, rash, 05/18/16) Reported Meds & Prescriptions Reported Meds & Active Scripts Active Eliquis (Apixaban) 5 Mg Tab 5 Mg PO BID Thiamine HCl 100 Mg Tab 100 Mg PO DAILY Metoprolol Tartrate 25 mg (Metoprolol Tartrate) 25 Mg Tab 12.5 Mg PO Q12HR 30 Days Nexium (Esomeprazole Magnesium) Esomeprazole Magnesium 40 mg Cap 40 Mg PO DAILY Reported [id number] 160 Mg Tab 160 Mg PO DAILY Xanax 1 mg (Alprazolam) Alprazolam 1 mg Tab 1 Tab PO DAILY Levothyroxine 75 mcg (Levothyroxine Sodium) Unknown Strength Tab Unknown Dose PO DAILY Lorazepam 1 Mg Tab 1 Mg PO DAILY PRN [id number] 100 Mg Aleks 100 Mg PO DAILY Folate 1 Mg Tab (Folic Acid) 1 Mg Tab 1 Mg PO DAILY Review of Systems General / Constitutional: No: Fever, Chills Eyes: No: Diploplia, Blurred Vision Cardiovascular: No: Chest Pain or Discomfort, Palpitations Respiratory: No: Cough Gastrointestinal: Positive: Nausea, Vomiting, No: Diarrhea, Hematochezia Genitourinary: No: Urgency, Frequency Musculoskeletal: No: Myalgias Skin: No Rash Neurologic: Positive: Weakness, No: Syncope Psychiatric: Positive: Substance Abuse Physical Exam Narrative GENERAL: Well-developed female SKIN: Warm and dry. HEAD: Atraumatic. Normocephalic. EYES: Pupils equal and round. No scleral icterus. No injection or drainage. ENT: No nasal bleeding or discharge. Mucous membranes pink and moist. NECK: Trachea midline. No JVD. CARDIOVASCULAR: Regular rate and rhythm. No murmur appreciated. RESPIRATORY: No accessory muscle use. Clear to auscultation. Breath sounds equal bilaterally. GASTROINTESTINAL: Abdomen soft, non-tender, nondistended. Hepatic and splenic margins not palpable. MUSCULOSKELETAL: No obvious deformities. No clubbing. No cyanosis. No edema. NEUROLOGICAL: Awake and alert. No obvious cranial nerve deficits. Motor grossly within normal limits. Normal speech. PSYCHIATRIC: Appropriate mood and affect; insight and judgment normal. Data Data Last Documented VS Vital Signs Date Time Temp Pulse Resp B/P Pulse Ox O2 Delivery O2 Flow Rate FiO2 10/07/16 21:17 99.4 97 20 142/88 98 Orders Complete Blood Count With Diff (10/07/16 21:31) Comprehensive Metabolic Panel (10/07/16 21:31) Lipase (10/07/16 21:31) Magnesium (Mg) (10/07/16 21:31) Sodium Chlor 0.9% 1000 Ml Inj (Ns 1000 M (10/07/16 21:45) Ondansetron Inj (Zofran Inj) (10/07/16 21:45) Pantoprazole Inj (Protonix Inj) (10/07/16 21:45) Prochlorperazine Inj (Compazine Inj) (10/07/16 22:15) Lorazepam Inj (Ativan Inj) (10/07/16 22:30) Salicylates (Aspirin) (10/07/16 22:31) Lactic Acid (10/07/16 22:31) Dext 5%-Nacl 0.9% 1000 Ml Inj (D5w-Ns 10 (10/07/16 22:45) Thiamine Inj (Thiamine Inj) (10/07/16 22:45) Beta Hydroxybutyrate (Acetone) (10/07/16 22:00) Labs Laboratory Tests Test 10/07/16 22:00 White Blood Count 5.9 TH/MM3 Red Blood Count 3.69 MIL/MM3 Hemoglobin 12.6 GM/DL Hematocrit 36.5 % Mean Corpuscular Volume 99.0 FL Mean Corpuscular Hemoglobin 34.1 PG Mean Corpuscular Hemoglobin 34.4 % Concent Red Cell Distribution Width 16.1 % Platelet Count 285 TH/MM3 Mean Platelet Volume 6.2 FL Neutrophils (%) (Auto) 82.8 % Lymphocytes (%) (Auto) 12.7 % Monocytes (%) (Auto) 3.5 % Eosinophils (%) (Auto) 0.1 % Basophils (%) (Auto) 0.9 % Neutrophils # (Auto) 4.8 TH/MM3 Lymphocytes # (Auto) 0.8 TH/MM3 Monocytes # (Auto) 0.2 TH/MM3 Eosinophils # (Auto) 0.0 TH/MM3 Basophils # (Auto) 0.1 TH/MM3 CBC Comment AUTO DIFF Differential Comment AUTO DIFF CONFIRMED Platelet Estimate NORMAL Platelet Morphology Comment NORMAL Sodium Level 131 MEQ/L Potassium Level 4.5 MEQ/L Chloride Level 93 MEQ/L Carbon Dioxide Level 18.5 MEQ/L Anion Gap 20 MEQ/L Blood Urea Nitrogen 11 MG/DL Creatinine 0.89 MG/DL Estimat Glomerular Filtration 63 ML/MIN Rate Random Glucose 79 MG/DL Calcium Level 8.5 MG/DL Magnesium Level 1.5 MG/DL Total Bilirubin 0.6 MG/DL Aspartate Amino Transf 40 U/L (AST/SGOT) Alanine Aminotransferase 16 U/L (ALT/SGPT) Alkaline Phosphatase 97 U/L Total Protein 7.4 GM/DL Albumin 3.6 GM/DL Lipase 421 U/L B-Hydroxybutyrate 1.34 MMOL/L MDM Medical Decision Making Medical Screen Exam Complete: Yes Emergency Medical Condition: Yes Medical Record Reviewed: Yes Differential Diagnosis Differential includes gastritis, pancreatitis, Narrative Course Patient has been given IV fluids and Zofran. She was given Compazine because of ongoing nausea. She is also given Ativan provided some relief of her nausea. Lipase is 421. Her anion gap is elevated at 20. This could represent alcoholic ketosis her lactic acidosis. I have ordered a beta hydroxybutyrate which is minimally elevated at 1.34. After the Ativan she is starting to feel better. Diagnosis Primary Impression: Gastritis Qualified Code: K29.70 - Gastritis without bleeding, unspecified chronicity, unspecified gastritis type Scripts Ondansetron Odt (Zofran Odt)4 Mg Tab4 Mg SL Q6HR PRN (Nausea/Vomiting) #10 TAB Ref 0 Prov:Albert Dennis MD 10/07/16 Disposition: 01 DISCHARGE HOME Condition: Stable Albert Dennis MD Oct 07, 2016 21:35
[2016-10-07] MEDS ORDERED: ONDANSETRON HCL 4 MG/2 ML VIAL IV PUSH ONE (21:45)
[2016-10-07] MEDS ORDERED: PANTOPRAZOLE SODIUM 40 MG VIAL IV PUSH ONE (21:45)
[2016-10-07] MEDS ORDERED: SODIUM CHLOR 0.9% 1000 ML INJ 1,000 ML IV ONE (21:45)
[2016-10-07 22:11] LABS: AUTOMATED NEUTROPHIL # 4.8 TH/MM3 (1.8-7.7); BASOPHIL # 0.1 TH/MM3 (0-0.2); BASOPHIL % 0.9 % (0.0-2.0); EOSINOPHIL % 0.1 % (0.0-4.0); HEMATOCRIT 36.5 % (35.0-46.0); LYMPH % 12.7 % (9.0-44.0); LYMPHOCYTE # 0.8 TH/MM3 (1.0-4.8); MEAN CORPUSCULAR HEMOGLOBIN 34.1 PG (27.0-34.0); MEAN CORPUSCULAR HGB CONC 34.4 % (32.0-36.0); MONO % 3.5 % (0.0-8.0); NEUT % 82.8 % (16.0-70.0); PLATELET COUNT 285 TH/MM3 (150-450); RED BLOOD COUNT 3.69 MIL/MM3 (4.00-5.30); RED CELL DISTRIBUTION WIDTH 16.1 % (11.6-17.2); WHITE BLOOD COUNT 5.9 TH/MM3 (4.0-11.0)
[2016-10-07 22:13] LABS: HEMO FLAGS AUTO DIFF
[2016-10-07] MEDS ORDERED: PROCHLORPERAZINE INJ 10 MG/2 ML VIAL IVS ONE (22:15)
[2016-10-07 22:19] LABS: CHLORIDE 93 MEQ/L (98-107); POTASSIUM 4.5 MEQ/L (3.5-5.1); SODIUM (NA) 131 MEQ/L (136-145)
[2016-10-07 22:23] LABS: ANION GAP 20 MEQ/L (5-15); BICARBONATE 18.5 MEQ/L (21.0-32.0); BLOOD UREA NITROGEN 11 MG/DL (7-18); MAGNESIUM 1.5 MG/DL (1.5-2.5)
[2016-10-07 22:26] LABS: ALT (GPT) 16 U/L (10-53); AST (GOT) 40 U/L (15-37); GLOMERULAR FILTRATION RATE 63 ML/MIN (>89)
[2016-10-07 22:28] LABS: TOTAL BILIRUBIN ADULT 0.6 MG/DL (0.2-1.0)
[2016-10-07 22:29] LABS: ALKALINE PHOSPHATASE 97 U/L (45-117)
[2016-10-07] MEDS ORDERED: LORazepam 2 MG/ML VIAL IV PUSH ONE (22:30)
[2016-10-07 22:36] LABS: PLATELET ESTIMATE SMEAR NORMAL (NORMAL); PLATELET MORPHOLOGY NORMAL (NORMAL); SCAN/DIFF AUTO DIFF CONFIRMED
[2016-10-07 22:40] VITALS: BP 157/88; PULSE 96; RESP 20; O2SAT 95
[2016-10-07] MEDS ORDERED: DEXT 5%-NACL 0.9% 1000 ML INJ 1,000 ML IV ONE (22:45)
[2016-10-07] MEDS ORDERED: THIAMINE INJ 100 MG in SODIUM CHLORIDE 0.9% INJ 100 ML IV ONE (22:45)
[2016-10-07 23:18] LABS: BETA-HYDROXYBUTYRATE 1.34 MMOL/L (0.00-0.39)
[2016-10-07 23:25] VITALS: BP 155/86; PULSE 103; RESP 20; TEMP 98.6; O2SAT 95
[2016-10-07] MEDS ORDERED: ZOFR4TAB3 SL (23:34)
[2016-10-08] VITALS (9 sets, daily range): BP systolic 146–169; BP diastolic 81–94; PULSE 80–127; RESP 18–20; TEMP 98–100.2; O2SAT 96–100
[2016-10-08] MEDS ORDERED: SODIUM CHLORIDE 0.9% FLUSH 5 ML FLUSH IV FLUSH PRN (00:30)
[2016-10-08] MEDS ORDERED: NALOXONE HCL 0.4 MG/ML AMP IV PRN (00:30)
[2016-10-08] MEDS ORDERED: SODIUM CHLORIDE 0.9% FLUSH 5 ML FLUSH FLUSH PRN (00:30)
[2016-10-08] MEDS ORDERED: FLUMAZENIL 0.5 MG/5 ML VIAL IV PUSH PRN (00:30)
[2016-10-08] MEDS ORDERED: THIA100T PO (00:31)
[2016-10-08] MEDS ORDERED: FOLI5CAP PO (00:31)
[2016-10-08] MEDS ORDERED: APIX5TAB PO (00:31)
[2016-10-08] MEDS ORDERED: ALPR1TAB3 PO (00:31)
[2016-10-08] MEDS ORDERED: METO25TA3 PO (00:31)
[2016-10-08] MEDS ORDERED: LEVO-168 PO (00:31)
[2016-10-08] MEDS ORDERED: NEXI40CA PO (00:31)
[2016-10-08] MEDS ORDERED: blood pressure med (00:31)
[2016-10-08 00:45] LABS: BLOOD, URINE TRACE (NEG); GLUCOSE,URINE NEG (NEG); KETONE, URINE TRACE mg/dL (NEG); NITRITE,URINE NEG (NEG); PH, URINE 5.5 (5.0-8.5)
[2016-10-08] MEDS ORDERED: SODIUM CHLOR 0.9% 1000 ML INJ 1,000 ML IV SCH (00:45)
[2016-10-08 00:48] LABS: URINE COLOR YELLOW (YELLW/STRAW)
[2016-10-08 00:49] LABS: RBC, URINE 0-3 /hpf (0-3); SQUAMOUS EPITHELIAL CELL URINE > 8 /hpf (0-5); WBC, URINE 0-2 /hpf (0-5)
[2016-10-08 00:50] LABS: BACTERIA, URINE MANY /hpf; COMMENT (UR) CULTURE INDICATED; CULTURE IF INDICATED CULTURE INDICATED
[2016-10-08] MEDS: SODIUM CHLOR 0.9% 1000 ML INJ 1,000 ML IV SCH ×3 (01:21→20:22)
[2016-10-08] MEDS: ONDANSETRON HCL 4 MG/2 ML VIAL IVP PRN ×2 (01:27→08:35)
[2016-10-08] MEDS: SODIUM CHLORIDE 0.9% FLUSH 5 ML FLUSH FLUSH SCH ×2 (08:35→20:14)
[2016-10-08] MEDS ORDERED: SODIUM CHLORIDE 0.9% FLUSH 5 ML FLUSH IV FLUSH SCH (09:00)
[2016-10-08] MEDS ORDERED: PILL SPLITTER OTHER PRN (09:45)
[2016-10-08] MEDS: LEVOTHYROXINE SODIUM 112 MCG TAB PO SCH (10:16)
[2016-10-08] MEDS: THIAMINE HCL 100 MG TAB PO SCH (10:16)
[2016-10-08] MEDS: METOPROLOL TARTRATE 25 MG TAB PO SCH (10:16)
[2016-10-08] MEDS: PANTOPRAZOLE SOD 40 MG DELAYED RELEASE TAB PO SCH (10:16)
[2016-10-08] MEDS: FOLIC ACID 1 MG TAB PO SCH (10:17)
--- NOTE | 2016-10-08 12:27 | MH ---
cc: CARROLL DAS MD DATE OF ADMISSION: 10/08/2016 CHIEF COMPLAINT Abdominal pain, nausea, vomiting. HISTORY OF PRESENT ILLNESS This is a 71-year-old female who has been admitted under my service well-known to me, came to the ER at [facility]. She has a past medical and surgical history significant for arthritis, anxiety, depression, atrial fibrillation, left breast cancer, history of gastric ulcer, hypertension, gastroesophageal reflux disease, hypothyroidism. History of lysis of adhesions of the abdomen, history of appendectomy, history of hysterectomy and sinus repair surgery. Came to the ER at [facility] complaining of abdominal pain. She has been vomiting throughout the day, yesterday and woke up in the morning and started vomiting and said to have some diarrhea initially but has not been able to eat anything after that. She denies any diarrhea now at the time of examination. She had pancreatitis in the past and has been admitted multiple times for pancreatitis and also alcohol withdrawal in the past. She admits to drinking alcohol on a regular basis, [id number] glasses of Garrett Moreau per day. She denies any fevers or chills, any cough, any chest pain or shortness of breath. She denies any black stool or blood in the stool. Other than that, nothing significant. PAST MEDICAL HISTORY As dictated above. SOCIAL HISTORY Denies smoking. She quit smoking 20 years ago. Drinks on a regular basis [id number] glasses of Garrett Moreau. Denies any drug abuse. She lives at home alone. 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 FAMILY HISTORY Significant for cancer and hypertension. ALLERGIES SULFA DRUGS. MEDICATIONS 1. Eliquis 5 mg twice a day. 2. Thiamine 100 mg p.o. daily. 3. Metoprolol 12.5 mg twice a day. 4. Nexium 40 mg p.o. daily. 5. Xanax 1 mg p.o. daily. 6. Levothyroxine 75 mcg p.o. daily. 7. Lorazepam 1 mg p.o. daily p.r.n. anxiety. 8. Folate 1 mg p.o. daily. REVIEW OF SYSTEMS Positive for abdominal pain and nausea. All other review of systems are negative. PHYSICAL EXAMINATION GENERAL: This is a 71-year-old female laying on the bed, not in acute distress. VITAL SIGNS: Temperature 98.0, heart rate 108, respiration 20, blood pressure 157/81, O2 saturation 98% on room air. HEENT: Normocephalic, atraumatic. Extraocular movements intact. Pupils equal, round and reactive to light. Oral mucosa moist. NECK: Neck is supple. No visible thyromegaly or neck mass. Trachea central. CARDIOVASCULAR SYSTEM: Regular rate and rhythm. RESPIRATORY: Respiration is clear to auscultation bilaterally. ABDOMEN: Soft with diffuse tenderness. Bowel sounds audible. Tender on superficial palpation, deep palpation not done. EXTREMITIES: No cyanosis or clubbing. Full range of motion of all extremities. NEUROLOGIC: Awake, alert, oriented x4. No focal deficits. SKIN: Warm and dry. PSYCHIATRIC: The patient is cooperative. Mood and affect are normal. LABORATORY DATA CBC totally unremarkable except for RBC count 3.69 low, MCH is 34.1 high. BMP totally unremarkable except for sodium 131 low, chloride 93 low, carbon dioxide 18.5 low, anion gap 20 high, estimated GFR 63, lactic acid level was 5.9 now it is 1.6, AST 40 high, lipase 421 high, B-Hydroxybutyrate 1.34 high, salicylate 1.7. Urine examination shows trace of ketones and trace occult blood, 0-3 RBCs, 0-2 WBCs. Blood cultures x2 done negative so far. Urine culture done negative so far. ASSESSMENT AND PLAN 1. This is a 71-year-old female who came to the ER diagnosed with abdominal pain most likely secondary from acute pancreatitis. The patient has a high lipase. Keeping the patient n.p.o. Putting on pain medicine. 2. The patient also has a history of adhesions and lysis of adhesions in the anterior abdominal wall secondary to multiple abdominal surgeries. 3. Nausea and vomiting. The patient is on Zofran. 4. History of atrial fibrillation. The patient is on Eliquis and metoprolol. 5. History of anxiety. Continue with Xanax. 6. History of hypothyroidism. Continue levothyroxine 75 mcg p.o. daily. 7. Alcohol abuse. The patient advised to quit. The patient is on thiamine and folic acid and also on Ativan. 8. DVT prophylaxis. SCDs. 9. GI prophylaxis. Protonix 40 mg daily. We are going to manage the patient on a daily basis and make recommendations on a daily basis. Carroll Das MD EA/ZACHARY /9:20 AM /11:56 AM
[2016-10-08] MEDS: APIXABAN 5 MG TABLET PO SCH (20:21)
[2016-10-08] MEDS: ALPRAZolam 1 MG TAB PO PRN (22:20)
[2016-10-09] VITALS (7 sets, daily range): BP systolic 152–175; BP diastolic 87–97; PULSE 71–94; RESP 16–19; TEMP 96–98.8; O2SAT 98–100
[2016-10-09] MEDS: LEVOTHYROXINE SODIUM 112 MCG TAB PO SCH (05:42)
[2016-10-09 08:13] LABS: AUTOMATED NEUTROPHIL # 4.7 TH/MM3 (1.8-7.7); BASOPHIL % 0.7 % (0.0-2.0); EOSINOPHIL # 0.1 TH/MM3 (0-0.4); EOSINOPHIL % 1.5 % (0.0-4.0); HEMATOCRIT 34.3 % (35.0-46.0); HEMO FLAGS DIFF FINAL; LYMPHOCYTE # 0.9 TH/MM3 (1.0-4.8); MEAN CELL VOLUME 101.7 FL (80.0-100.0); MEAN CORPUSCULAR HEMOGLOBIN 34.6 PG (27.0-34.0); MONO % 9.6 % (0.0-8.0); NEUT % 74.2 % (16.0-70.0); PLATELET COUNT 208 TH/MM3 (150-450); RED BLOOD COUNT 3.38 MIL/MM3 (4.00-5.30); RED CELL DISTRIBUTION WIDTH 16.3 % (11.6-17.2); WHITE BLOOD COUNT 6.3 TH/MM3 (4.0-11.0)
[2016-10-09 08:30] LABS: INDIRECT BILIRUBIN 0.6 MG/DL (0.0-0.8); POTASSIUM 3.1 MEQ/L (3.5-5.1)
[2016-10-09] MEDS: SODIUM CHLORIDE 0.9% FLUSH 5 ML FLUSH FLUSH SCH ×2 (09:00→20:02)
--- NOTE | 2016-10-09 09:03 | HHI.PR ---
Subjective History of Present Illness Patient abdominal pain better advance diet as tolerated have high Lipase consulted GI. d/w CALDERON Hardin at bed side. C/O Vulvar rash started on nystatin cream. Review of Systems Constitutional Constitutional: Fatigue, Weakness GI/Abdomen GI/Abdominal Exam: Abdominal Pain Vitals/Results Intake & Output 10/08/16 10/08/16 10/09/16 15:00 23:00 07:00 Intake Total 900 ml 2256 ml Output Total 125 ml Balance 900 ml 2256 ml -125 ml Intake Oral 900 ml IV Total 2256 ml Output Urine Total 125 ml # Voids 10 # Bowel Movements 0 Vital Signs Vital Signs Date Time Temp Pulse Resp B/P Pulse Ox O2 Delivery O2 Flow Rate FiO2 10/09/16 08:00 97.0 78 16 163/94 100 10/09/16 04:00 98.8 92 18 158/94 99 10/09/16 00:00 98.7 71 16 175/97 100 10/08/16 20:00 83 10/08/16 20:00 100.2 85 18 152/88 99 10/08/16 16:00 99.1 82 20 149/91 99 10/08/16 12:00 98.7 80 20 153/89 99 CBC/BMP: 10/09/16 0752 10/09/16 0752 Lab Results Laboratory Tests Test 10/09/16 07:52 White Blood Count 6.3 TH/MM3 Red Blood Count 3.38 MIL/MM3 Hemoglobin 11.7 GM/DL Hematocrit 34.3 % Mean Corpuscular Volume 101.7 FL Mean Corpuscular Hemoglobin 34.6 PG Mean Corpuscular Hemoglobin 34.0 % Concent Red Cell Distribution Width 16.3 % Platelet Count 208 TH/MM3 Mean Platelet Volume 6.2 FL Neutrophils (%) (Auto) 74.2 % Lymphocytes (%) (Auto) 14.0 % Monocytes (%) (Auto) 9.6 % Eosinophils (%) (Auto) 1.5 % Basophils (%) (Auto) 0.7 % Neutrophils # (Auto) 4.7 TH/MM3 Lymphocytes # (Auto) 0.9 TH/MM3 Monocytes # (Auto) 0.6 TH/MM3 Eosinophils # (Auto) 0.1 TH/MM3 Basophils # (Auto) 0.0 TH/MM3 CBC Comment DIFF FINAL Differential Comment Sodium Level 136 MEQ/L Potassium Level 3.1 MEQ/L Chloride Level 101 MEQ/L Carbon Dioxide Level 24.0 MEQ/L Anion Gap 11 MEQ/L Blood Urea Nitrogen 6 MG/DL Creatinine 0.89 MG/DL Estimat Glomerular Filtration 63 ML/MIN Rate Random Glucose 97 MG/DL Calcium Level 8.3 MG/DL Total Bilirubin 1.0 MG/DL Direct Bilirubin 0.4 MG/DL Indirect Bilirubin 0.6 MG/DL Aspartate Amino Transf 23 U/L (AST/SGOT) Alanine Aminotransferase 11 U/L (ALT/SGPT) Alkaline Phosphatase 81 U/L Total Protein 6.7 GM/DL Albumin 3.3 GM/DL Lipase 496 U/L Physical Exam General General Appearance: No Acute Distress, Comfortable Eyes Eye Exam: Pupils Equal, Pupils Reactive, Sclera White, Extraocular Movement Intact Throat Throat Exam: Oral Mucosa [place] & Moist, Oral Pharynx Normal Neck Neck Exam: Neck Supple, Trachea Midline Pulmonary Resp Exam: Clear Bilaterally, Breath Sounds Equal, No Distress Cardiology CV Exam: Regular, Normal Sinus Rhythm Gastrointestinal/Abdomen GI Exam: Soft, Non-Tender, Bowel Sounds Present Musculoskeletal MS Exam: Normal Tone, Good Strength Integumentary Skin Exam: Clear, Warm, Dry, Intact Extremeties Extremities Exam: No Edema Neurologic Neuro Exam: Alert, Awake, Oriented, Speech Clear, Moving All Extremities PUD Prophylasis PUD Prophylaxis: Protonix Assessment/Plan Assessment/Plan ASSESSMENT AND PLAN 1. This is a 71-year-old female who came to the ER diagnosed with abdominal pain most likely secondary from acute pancreatitis. The patient has a high lipase. advancing diet as tolerated... on pain medicine. 2. The patient also has a history of adhesions and lysis of adhesions in the anterior abdominal wall secondary to multiple abdominal surgeries. 3. Nausea and vomiting. The patient is on Zofran. 4. History of atrial fibrillation. The patient is on Eliquis and metoprolol. 5. History of anxiety. Continue with Xanax. 6. History of hypothyroidism. Continue levothyroxine 75 mcg p.o. daily. 7. Alcohol abuse. The patient advised to quit. The patient is on thiamine and folic acid and also on Ativan. 8. DVT prophylaxis. SCDs. 9. GI prophylaxis. Protonix 40 mg daily. 10. Vulvar rash started on nystatin cream. We are going to manage the patient on a daily basis and make recommendations on a daily basis. Check CBC with diff CMP Lipase in am. Discussed Condition with: Patient Carroll Brown MD Oct 09, 2016 09:03
[2016-10-09] MEDS: PANTOPRAZOLE SOD 40 MG DELAYED RELEASE TAB PO SCH (09:57)
[2016-10-09] MEDS: METOPROLOL TARTRATE 25 MG TAB PO SCH (09:57)
[2016-10-09] MEDS: THIAMINE HCL 100 MG TAB PO SCH (09:58)
[2016-10-09] MEDS: FOLIC ACID 1 MG TAB PO SCH (09:58)
[2016-10-09] MEDS ORDERED: INFLUENZA VIRUS VACCINE (QUADRIVALENT) 0.5 ML SYR IM ONE (10:00)
[2016-10-09] MEDS ORDERED: POTASSIUM CHLORIDE 20 MEQ CONTROLLED RELEASE TAB PO ONE (10:00)
[2016-10-09] MEDS: SODIUM CHLOR 0.9% 1000 ML INJ 1,000 ML IV SCH ×2 (11:06→16:21)
[2016-10-09] MEDS: NYSTATIN 100,000 UNIT/GM CREAM 15 GM TOPICAL SCH ×3 (11:07→23:04)
--- NOTE | 2016-10-09 14:17 | PD.CONS ---
HPI History of Present Illness This is a 71 year old female being seen by GI due to abdominal pain, vomiting and diarrhea, with history of pancreatitis. Patient went to the ER for these symptoms. At evaluation patient is lying in bed crying and reports her 2 days ago, and says she needs to go home so she can bury him. Prior to coming to ER, she reports she had generalized abdominal pain, and vomiting/ diarrhea x 1 week. Denies blood in emesis or stool. Reports she has no abdominal pain today, but continues to have diarrhea multiple times per day. She says she ate a sandwich for lunch and tolerated this well. Patient does have a history of pancreatitis and continue to drink ETOH, 2-3 glasses of Garrett Moreau per day. Medical history includes arthritis, anxiety, depression, Afib, L breast cancer, gastric ulcer, HTN, GERD, and hypothyroidism. (Thi Demarco) PFSH Past Medical History -Arthritis -Anxiety -Depression -Afib -L breast cancer -Gastric ulcer -HTN -GERD -Hypothyroidism Past Surgical History -Lysis of abdominal lesions, secondary to multiple abdominal surgeries -Appendectomy -Hysterectomy -Sinus repair surgery (Thi Demarco) Coded Allergies: Sulfa (Verified Allergy, Intermediate, rash, 05/18/16) Medications Current Medications Medications (Trade) Dose Ordered Sig/Veronica Route PRN Reason Start Time Stop Time Status Last Admin Dose Admin Sodium Chloride (NS 1000 ml Inj) 1,000 ml @ 100 mls/hr Q10H IV 10/08/16 00:21 10/09/16 11:06 IV Flush (NS Flush) 2 ml UNSCH PRN FLUSH FLUSH AFTER USING IV ACCESS 10/08/16 00:30 10/08/16 03:00 IV Flush (NS Flush) 2 ml BID FLUSH 10/08/16 09:00 10/08/16 08:35 Ondansetron HCl (Zofran Inj) 4 mg Q6H PRN IVP NAUSEA OR VOMITING 10/08/16 00:30 10/08/16 08:35 Naloxone HCl (Narcan Inj) 0.4 mg UNSCH PRN IV SEE LABEL COMMENTS 10/08/16 00:30 Flumazenil (Romazicon Inj) 0.2 mg Q1M PRN IV PUSH SEE LABEL COMMENTS 10/08/16 00:30 Alprazolam (Xanax) 1 mg Q8H PRN PO ANXIETY 10/08/16 09:30 10/08/16 22:20 Apixaban (Eliquis) 5 mg HS PO 10/08/16 21:00 10/08/16 20:21 Folic Acid (Folate) 1 mg DAILY PO 10/08/16 10:00 10/09/16 09:58 Levothyroxine Sodium (Synthroid) 112 mcg DAILY@0600 PO 10/08/16 10:00 10/09/16 05:42 Metoprolol Tartrate (Lopressor) 12.5 mg DAILY PO 10/08/16 10:00 10/09/16 09:57 Thiamine HCl (Vitamin B1) 100 mg DAILY PO 10/08/16 10:00 10/09/16 09:58 Pantoprazole Sodium (Protonix) 40 mg DAILY PO 10/08/16 10:00 10/09/16 09:57 Miscellaneous (Pill Splitter) 1 ea UNSCH PRN OTHER SEE LABEL COMMENTS 10/08/16 09:45 Nystatin (Mycostatin Cream) 1 applic Q6HR TOPICAL 10/09/16 12:00 10/09/16 11:07 Family History -Significant for cancer Social History ETOH-2-3 glasses of Garrett Moreau per day Denies current tobacco use, quit smoking 20 years ago. Denies illicit drug use. 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) Review of Systems Constitutional: DENIES: Diaphoretic episodes, Fatigue, Fever, Weight gain, Weight loss, Chills, Dizziness, Change in appetite, Night Sweats Endocrine: DENIES: Polyuria Eyes: DENIES: Blurred vision, Double Vision Ears, nose, mouth, throat: DENIES: Hearing loss, Vertigo, Oral lesions, Throat pain, Hoarseness Respiratory: DENIES: Cough, Wheezing, Hemoptysis, Sputum production, Shortness of breath Cardiovascular: DENIES: Chest pain, Palpitations, Syncope, Lower Extremity Edema Gastrointestinal: COMPLAINS OF: Diarrhea, Nausea, DENIES: Abdominal pain, Black stools, Bloody stools, Constipation, Vomiting, Difficulty Swallowing, Anorexia, Odynophagia, Swelling of Abdomen, Heartburn, Hematemesis Genitourinary: DENIES: Urinary frequency, Urinary incontinence, Urgency, Hematuria, Dysuria, Nocturia Musculoskeletal: DENIES: Joint pain, Muscle aches, Back pain, Neck pain Integumentary: DENIES: Pruritus, Rash, Jaundice Hematologic/lymphatic: DENIES: Bruising Immunologic/allergic: DENIES: Eczema Neurologic: DENIES: Abnormal gait, Headache, Localized weakness, Paresthesias Psychiatric: DENIES: Anxiety, Confusion, Mood changes, Depression, Agitation, Suicidal Ideation (Thi Demarco) GI Exam Vitals I&O Vital Signs Date Time Temp Pulse Resp B/P Pulse Ox O2 Delivery O2 Flow Rate FiO2 10/09/16 12:00 97.2 73 17 163/93 98 10/09/16 08:00 97.0 78 16 163/94 100 10/09/16 06:50 94 10/09/16 04:00 98.8 92 18 158/94 99 10/09/16 00:00 98.7 71 16 175/97 100 10/08/16 20:00 83 10/08/16 20:00 100.2 85 18 152/88 99 10/08/16 16:00 99.1 82 20 149/91 99 I/O 10/08/16 10/08/16 10/08/16 10/09/16 10/09/16 10/09/16 07:00 15:00 23:00 07:00 15:00 23:00 Intake Total 1500 ml 900 ml 2256 ml 200 ml Output Total 300 ml 125 ml Balance 1200 ml 900 ml 2256 ml -125 ml 200 ml Intake Oral 900 ml 200 ml IV Total 1500 ml 2256 ml Output Urine Total 300 ml 125 ml # Voids 10 # Bowel Movements 0 Imaging No recent imaging studies. Laboratory Test 10/09/16 07:52 White Blood Count 6.3 TH/MM3 Red Blood Count 3.38 MIL/MM3 Hemoglobin 11.7 GM/DL Hematocrit 34.3 % Mean Corpuscular Volume 101.7 FL Mean Corpuscular Hemoglobin 34.6 PG Mean Corpuscular Hemoglobin 34.0 % Concent Red Cell Distribution Width 16.3 % Platelet Count 208 TH/MM3 Mean Platelet Volume 6.2 FL Neutrophils (%) (Auto) 74.2 % Lymphocytes (%) (Auto) 14.0 % Monocytes (%) (Auto) 9.6 % Eosinophils (%) (Auto) 1.5 % Basophils (%) (Auto) 0.7 % Neutrophils # (Auto) 4.7 TH/MM3 Lymphocytes # (Auto) 0.9 TH/MM3 Monocytes # (Auto) 0.6 TH/MM3 Eosinophils # (Auto) 0.1 TH/MM3 Basophils # (Auto) 0.0 TH/MM3 CBC Comment DIFF FINAL Differential Comment Sodium Level 136 MEQ/L Potassium Level 3.1 MEQ/L Chloride Level 101 MEQ/L Carbon Dioxide Level 24.0 MEQ/L Anion Gap 11 MEQ/L Blood Urea Nitrogen 6 MG/DL Creatinine 0.89 MG/DL Estimat Glomerular Filtration 63 ML/MIN Rate Random Glucose 97 MG/DL Calcium Level 8.3 MG/DL Total Bilirubin 1.0 MG/DL Direct Bilirubin 0.4 MG/DL Indirect Bilirubin 0.6 MG/DL Aspartate Amino Transf 23 U/L (AST/SGOT) Alanine Aminotransferase 11 U/L (ALT/SGPT) Alkaline Phosphatase 81 U/L Total Protein 6.7 GM/DL Albumin 3.3 GM/DL Lipase 496 U/L Date/Time Procedure Status Source Growth 10/08/16 01:15 Aerobic Blood Culture - Preliminary Resulted Blood Peripheral NO GROWTH IN 1 DAY 10/08/16 01:15 Anaerobic Blood Culture - Preliminary Resulted Blood Peripheral NO GROWTH IN 1 DAY 10/08/16 00:43 Urine Culture - Final Complete Urine Clean Catch 50-100,000 CFU/ML MIXED COLLINS... Physical Examination HEENT: PERRLA. NECK: Neck is supple, trachea midline. CHEST: CTA CARDIAC: RRR ABDOMEN: Soft, nondistended, nontender, bowel sounds active x 4 quadrants. EXTREMITIES: No edema. 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 WBC 6.3 -Nausea and vomiting--Secondary to pancreatitis -ETOH abuse--Recommended to quit ETOH. Thiamine, Folic acid, Ativan as needed. PLAN: -Monitor amylase, lipase -IVF -CT Abdomen -Continue Zofran as needed -Continue Protonix -ARSENIO -Further recommendations to follow based on results above. Patient seen and examined by Dr. Hopson and myself and this note is written on his behalf. (Thi Demarco) Physician Comments Seen and examined with DORIE, ETOH related pancreatitis. Tolerating po diet. Says 2 days ago from cancer she has been drinking more ETOH. Wants to go home. No etoh recommended. Gi fu upon dc. Thank you (Kevin Hopson MD) Thi Demarco Oct 09, 2016 14:17 Kevin Hopson MD Oct 09, 2016 15:32
[2016-10-09] MEDS ORDERED: DIATRIZOATE MEGLUM/DIATRIZOATE SOD 9 ML CUP PO ONE (14:30)
[2016-10-09] MEDS: APIXABAN 5 MG TABLET PO SCH (20:26)
[2016-10-09] MEDS: ALPRAZolam 1 MG TAB PO PRN (20:26)
[2016-10-10] VITALS (7 sets, daily range): BP systolic 100–163; BP diastolic 80–110; PULSE 70–82; RESP 15–18; TEMP 96.4–99.6; O2SAT 98–100
[2016-10-10] MEDS: SODIUM CHLOR 0.9% 1000 ML INJ 1,000 ML IV SCH (00:04)
[2016-10-10] MEDS: NYSTATIN 100,000 UNIT/GM CREAM 15 GM TOPICAL SCH ×4 (05:53→23:17)
[2016-10-10] MEDS: LEVOTHYROXINE SODIUM 112 MCG TAB PO SCH (05:53)
[2016-10-10 06:49] LABS: AUTOMATED NEUTROPHIL # 3.3 TH/MM3 (1.8-7.7); BASOPHIL % 0.5 % (0.0-2.0); EOSINOPHIL # 0.2 TH/MM3 (0-0.4); EOSINOPHIL % 2.9 % (0.0-4.0); HEMATOCRIT 32.7 % (35.0-46.0); HEMO FLAGS DIFF FINAL; LYMPH % 25.9 % (9.0-44.0); LYMPHOCYTE # 1.5 TH/MM3 (1.0-4.8); MEAN CELL VOLUME 101.8 FL (80.0-100.0); MEAN CORPUSCULAR HEMOGLOBIN 34.5 PG (27.0-34.0); MEAN CORPUSCULAR HGB CONC 33.9 % (32.0-36.0); MONO % 13.4 % (0.0-8.0); NEUT % 57.3 % (16.0-70.0); PLATELET COUNT 215 TH/MM3 (150-450); RED BLOOD COUNT 3.22 MIL/MM3 (4.00-5.30); RED CELL DISTRIBUTION WIDTH 15.9 % (11.6-17.2); WHITE BLOOD COUNT 5.8 TH/MM3 (4.0-11.0)
[2016-10-10 06:59] LABS: CHLORIDE 102 MEQ/L (98-107); POTASSIUM 3.2 MEQ/L (3.5-5.1); SODIUM (NA) 137 MEQ/L (136-145)
[2016-10-10 07:12] LABS: ANION GAP 11 MEQ/L (5-15); BICARBONATE 24.2 MEQ/L (21.0-32.0); BLOOD UREA NITROGEN 3 MG/DL (7-18)
[2016-10-10 07:13] LABS: AMYLASE 52 U/L (25-115)
[2016-10-10 07:15] LABS: ALT (GPT) 8 U/L (10-53); AST (GOT) 21 U/L (15-37); GLOMERULAR FILTRATION RATE 79 ML/MIN (>89)
[2016-10-10 07:18] LABS: ALKALINE PHOSPHATASE 69 U/L (45-117)
--- NOTE | 2016-10-10 08:15 | HHI.PR ---
Subjective History of Present Illness Patient abdominal pain better advance diet as tolerated have high Lipase GI. input noted . d/w RN Deidra consulting Psych for mental capasity evaluation and behavioral health case manager for discharge planning. Review of Systems Constitutional Constitutional: Fatigue, Weakness GI/Abdomen GI/Abdominal Exam: Abdominal Pain Vitals/Results Intake & Output 10/09/16 10/09/16 10/10/16 15:00 23:00 07:00 Intake Total 1140 ml 800 ml 240 ml Balance 1140 ml 800 ml 240 ml Intake Oral 1140 ml 240 ml IV Total 800 ml # Voids 8 5 # Bowel Movements 1 2 Vital Signs Vital Signs Date Time Temp Pulse Resp B/P Pulse Ox O2 Delivery O2 Flow Rate FiO2 10/10/16 04:00 97.1 76 18 163/96 98 10/10/16 00:00 99.2 75 18 148/94 99 10/09/16 20:00 96.0 91 18 152/87 99 10/09/16 20:00 81 10/09/16 16:00 97.0 80 19 170/89 98 10/09/16 12:00 97.2 73 17 163/93 98 CBC/BMP: 10/10/16 0637 10/10/16 0637 Lab Results Laboratory Tests Test 10/10/16 06:37 White Blood Count 5.8 TH/MM3 Red Blood Count 3.22 MIL/MM3 Hemoglobin 11.1 GM/DL Hematocrit 32.7 % Mean Corpuscular Volume 101.8 FL Mean Corpuscular Hemoglobin 34.5 PG Mean Corpuscular Hemoglobin 33.9 % Concent Red Cell Distribution Width 15.9 % Platelet Count 215 TH/MM3 Mean Platelet Volume 6.1 FL Neutrophils (%) (Auto) 57.3 % Lymphocytes (%) (Auto) 25.9 % Monocytes (%) (Auto) 13.4 % Eosinophils (%) (Auto) 2.9 % Basophils (%) (Auto) 0.5 % Neutrophils # (Auto) 3.3 TH/MM3 Lymphocytes # (Auto) 1.5 TH/MM3 Monocytes # (Auto) 0.8 TH/MM3 Eosinophils # (Auto) 0.2 TH/MM3 Basophils # (Auto) 0.0 TH/MM3 CBC Comment DIFF FINAL Differential Comment Sodium Level 137 MEQ/L Potassium Level 3.2 MEQ/L Chloride Level 102 MEQ/L Carbon Dioxide Level 24.2 MEQ/L Anion Gap 11 MEQ/L Blood Urea Nitrogen 3 MG/DL Creatinine 0.73 MG/DL Estimat Glomerular Filtration 79 ML/MIN Rate Random Glucose 94 MG/DL Calcium Level 8.2 MG/DL Total Bilirubin 1.0 MG/DL Aspartate Amino Transf 21 U/L (AST/SGOT) Alanine Aminotransferase 8 U/L (ALT/SGPT) Alkaline Phosphatase 69 U/L Total Protein 6.0 GM/DL Albumin 2.9 GM/DL Amylase Level 52 U/L Lipase 349 U/L Physical Exam General General Appearance: No Acute Distress, Comfortable Eyes Eye Exam: Pupils Equal, Pupils Reactive, Sclera White, Extraocular Movement Intact Throat Throat Exam: Oral Mucosa [place] & Moist, Oral Pharynx Normal Neck Neck Exam: Neck Supple, Trachea Midline Pulmonary Resp Exam: Clear Bilaterally, Breath Sounds Equal, No Distress Cardiology CV Exam: Regular, Normal Sinus Rhythm Gastrointestinal/Abdomen GI Exam: Soft, Non-Tender, Bowel Sounds Present Musculoskeletal MS Exam: Normal Tone, Good Strength Integumentary Skin Exam: Clear, Warm, Dry, Intact Extremeties Extremities Exam: No Edema Neurologic Neuro Exam: Alert, Awake, Oriented, Speech Clear, Moving All Extremities PUD Prophylasis PUD Prophylaxis: Protonix Assessment/Plan Assessment/Plan ASSESSMENT AND PLAN 1. This is a 71-year-old female who came to the ER diagnosed with abdominal pain most likely secondary from acute pancreatitis. The patient has a high lipase. advancing diet as tolerated... on pain medicine. 2. The patient also has a history of adhesions and lysis of adhesions in the anterior abdominal wall secondary to multiple abdominal surgeries. 3. Nausea and vomiting. The patient is on Zofran. 4. History of atrial fibrillation. The patient is on Eliquis and metoprolol. 5. History of anxiety. Continue with Xanax. 6. History of hypothyroidism. Continue levothyroxine 75 mcg p.o. daily. 7. Alcohol abuse. The patient advised to quit. The patient is on thiamine and folic acid and also on Ativan. 8. DVT prophylaxis. SCDs. 9. GI prophylaxis. Protonix 40 mg daily. 10. Vulvar rash started on nystatin cream. We are going to manage the patient on a daily basis and make recommendations on a daily basis. Check CBC with diff CMP Lipase in am. consulting Psych for mental capasity evaluation and behavioral health case manager for discharge planning. Discussed Condition with: Patient Carroll Brown MD Oct 10, 2016 08:15
[2016-10-10] MEDS ORDERED: POTASSIUM CL 40 MEQ/30 ML LIQ UDC PO ONE (08:30)
[2016-10-10] MEDS: SODIUM CHLORIDE 0.9% FLUSH 5 ML FLUSH FLUSH SCH ×2 (09:00→20:25)
[2016-10-10] MEDS: THIAMINE HCL 100 MG TAB PO SCH (09:31)
[2016-10-10] MEDS: ALPRAZolam 1 MG TAB PO PRN ×2 (09:31→23:17)
[2016-10-10] MEDS: METOPROLOL TARTRATE 25 MG TAB PO SCH (09:31)
[2016-10-10] MEDS: PANTOPRAZOLE SOD 40 MG DELAYED RELEASE TAB PO SCH (09:31)
[2016-10-10] MEDS: FOLIC ACID 1 MG TAB PO SCH (09:31)
[2016-10-10] MEDS: APIXABAN 5 MG TABLET PO SCH (20:25)
[2016-10-11] VITALS: BP 167/91; PULSE 76; RESP 18; TEMP 98.7; O2SAT 100
[2016-10-11] MEDS: LEVOTHYROXINE SODIUM 112 MCG TAB PO SCH (05:41)
[2016-10-11] MEDS: NYSTATIN 100,000 UNIT/GM CREAM 15 GM TOPICAL SCH ×4 (05:41→21:28)
[2016-10-11 06:13] LABS: AUTOMATED NEUTROPHIL # 3.5 TH/MM3 (1.8-7.7); BASOPHIL % 0.8 % (0.0-2.0); EOSINOPHIL # 0.2 TH/MM3 (0-0.4); EOSINOPHIL % 3.6 % (0.0-4.0); HEMATOCRIT 34.6 % (35.0-46.0); HEMO FLAGS DIFF FINAL; LYMPH % 28.4 % (9.0-44.0); LYMPHOCYTE # 1.7 TH/MM3 (1.0-4.8); MEAN CELL VOLUME 100.2 FL (80.0-100.0); MEAN CORPUSCULAR HEMOGLOBIN 33.6 PG (27.0-34.0); MEAN CORPUSCULAR HGB CONC 33.5 % (32.0-36.0); NEUT % 55.2 % (16.0-70.0); PLATELET COUNT 232 TH/MM3 (150-450); RED BLOOD COUNT 3.45 MIL/MM3 (4.00-5.30); WHITE BLOOD COUNT 6.1 TH/MM3 (4.0-11.0)
[2016-10-11 06:25] LABS: CHLORIDE 103 MEQ/L (98-107); POTASSIUM 3.8 MEQ/L (3.5-5.1); SODIUM (NA) 136 MEQ/L (136-145)
[2016-10-11 06:30] LABS: ANION GAP 10 MEQ/L (5-15); BLOOD UREA NITROGEN 6 MG/DL (7-18)
[2016-10-11 06:33] LABS: ALT (GPT) 11 U/L (10-53); AST (GOT) 19 U/L (15-37); GLOMERULAR FILTRATION RATE 75 ML/MIN (>89)
[2016-10-11 06:35] LABS: TOTAL BILIRUBIN ADULT 0.6 MG/DL (0.2-1.0)
[2016-10-11 06:36] LABS: ALKALINE PHOSPHATASE 66 U/L (45-117)
[2016-10-11 08:00] VITALS: BP 153/83; PULSE 72; RESP 18; TEMP 98; O2SAT 95
[2016-10-11] MEDS: FOLIC ACID 1 MG TAB PO SCH (09:05)
[2016-10-11] MEDS: PANTOPRAZOLE SOD 40 MG DELAYED RELEASE TAB PO SCH (09:05)
[2016-10-11] MEDS: SODIUM CHLORIDE 0.9% FLUSH 5 ML FLUSH FLUSH SCH ×2 (09:05→21:26)
[2016-10-11] MEDS: METOPROLOL TARTRATE 25 MG TAB PO SCH (09:05)
[2016-10-11] MEDS: THIAMINE HCL 100 MG TAB PO SCH (09:05)
[2016-10-11 12:00] VITALS: BP 140/80; PULSE 80; RESP 18; TEMP 98.1; O2SAT 95
--- NOTE | 2016-10-11 14:19 | HHI.PR ---
Subjective History of Present Illness Patient abdominal pain better advance diet as tolerated have high Lipase GI. input noted . d/w RN Deidra consulting Psych for mental capasity evaluation and corrections caseworker for discharge planning. Patient AAOX 3 and refused to stay and left home. Review of Systems Constitutional Constitutional: Fatigue, Weakness GI/Abdomen GI/Abdominal Exam: Abdominal Pain Vitals/Results Intake & Output 10/10/16 10/10/16 10/11/16 15:00 23:00 07:00 Intake Total 800 ml 640 ml 420 ml Balance 800 ml 640 ml 420 ml Intake Oral 800 ml 640 ml 420 ml # Voids 2 2 2 # Bowel Movements 1 0 0 Vital Signs Vital Signs Date Time Temp Pulse Resp B/P Pulse Ox O2 Delivery O2 Flow Rate FiO2 10/11/16 12:00 98.1 80 18 140/80 95 10/11/16 08:00 98.0 72 18 153/83 95 10/11/16 00:00 98.7 76 18 167/91 100 10/10/16 20:00 99.6 77 18 152/97 100 10/10/16 17:39 98.8 79 15 100/80 100 CBC/BMP: 10/11/16 0600 10/11/16 0600 Lab Results Laboratory Tests Test 10/11/16 06:00 White Blood Count 6.1 TH/MM3 Red Blood Count 3.45 MIL/MM3 Hemoglobin 11.6 GM/DL Hematocrit 34.6 % Mean Corpuscular Volume 100.2 FL Mean Corpuscular Hemoglobin 33.6 PG Mean Corpuscular Hemoglobin 33.5 % Concent Red Cell Distribution Width 16.0 % Platelet Count 232 TH/MM3 Mean Platelet Volume 6.5 FL Neutrophils (%) (Auto) 55.2 % Lymphocytes (%) (Auto) 28.4 % Monocytes (%) (Auto) 12.0 % Eosinophils (%) (Auto) 3.6 % Basophils (%) (Auto) 0.8 % Neutrophils # (Auto) 3.5 TH/MM3 Lymphocytes # (Auto) 1.7 TH/MM3 Monocytes # (Auto) 0.7 TH/MM3 Eosinophils # (Auto) 0.2 TH/MM3 Basophils # (Auto) 0.0 TH/MM3 CBC Comment DIFF FINAL Differential Comment Sodium Level 136 MEQ/L Potassium Level 3.8 MEQ/L Chloride Level 103 MEQ/L Carbon Dioxide Level 23.0 MEQ/L Anion Gap 10 MEQ/L Blood Urea Nitrogen 6 MG/DL Creatinine 0.76 MG/DL Estimat Glomerular Filtration 75 ML/MIN Rate Random Glucose 99 MG/DL Calcium Level 7.7 MG/DL Total Bilirubin 0.6 MG/DL Aspartate Amino Transf 19 U/L (AST/SGOT) Alanine Aminotransferase 11 U/L (ALT/SGPT) Alkaline Phosphatase 66 U/L Total Protein 6.1 GM/DL Albumin 2.9 GM/DL Physical Exam General General Appearance: No Acute Distress, Comfortable Eyes Eye Exam: Pupils Equal, Pupils Reactive, Sclera White, Extraocular Movement Intact Throat Throat Exam: Oral Mucosa [place] & Moist, Oral Pharynx Normal Neck Neck Exam: Neck Supple, Trachea Midline Pulmonary Resp Exam: Clear Bilaterally, Breath Sounds Equal, No Distress Cardiology CV Exam: Regular, Normal Sinus Rhythm Gastrointestinal/Abdomen GI Exam: Soft, Non-Tender, Bowel Sounds Present Musculoskeletal MS Exam: Normal Tone, Good Strength Integumentary Skin Exam: Clear, Warm, Dry, Intact Extremeties Extremities Exam: No Edema Neurologic Neuro Exam: Alert, Awake, Oriented, Speech Clear, Moving All Extremities PUD Prophylasis PUD Prophylaxis: Protonix Assessment/Plan Assessment/Plan ASSESSMENT AND PLAN 1. This is a 71-year-old female who came to the ER diagnosed with abdominal pain most likely secondary from acute pancreatitis. The patient has a high lipase. advancing diet as tolerated... on pain medicine. 2. The patient also has a history of adhesions and lysis of adhesions in the anterior abdominal wall secondary to multiple abdominal surgeries. 3. Nausea and vomiting. The patient is on Zofran. 4. History of atrial fibrillation. The patient is on Eliquis and metoprolol. 5. History of anxiety. Continue with Xanax. 6. History of hypothyroidism. Continue levothyroxine 75 mcg p.o. daily. 7. Alcohol abuse. The patient advised to quit. The patient is on thiamine and folic acid and also on Ativan. 8. DVT prophylaxis. SCDs. 9. GI prophylaxis. Protonix 40 mg daily. 10. Vulvar rash started on nystatin cream. consulting Psych for mental capasity evaluation and corrections caseworker for discharge planning. Patient AAOX 3 and refused to stay and left home. Discussed Condition with: Patient Carroll Brown MD Oct 11, 2016 14:19
[2016-10-11 16:00] VITALS: BP 144/82; PULSE 78; RESP 18; TEMP 98.4; O2SAT 95
[2016-10-11 20:00] VITALS: BP 161/90; PULSE 74; RESP 20; TEMP 98.8; O2SAT 99
[2016-10-11] MEDS: APIXABAN 5 MG TABLET PO SCH (21:34)
[2016-10-12] VITALS: BP 153/89; PULSE 76; RESP 20; TEMP 98.7; O2SAT 100
[2016-10-12] MEDS: ALPRAZolam 1 MG TAB PO PRN ×2 (00:04→09:40)
[2016-10-12] MEDS: LEVOTHYROXINE SODIUM 112 MCG TAB PO SCH (06:09)
[2016-10-12] MEDS: NYSTATIN 100,000 UNIT/GM CREAM 15 GM TOPICAL SCH ×2 (06:09→09:38)
[2016-10-12 08:00] VITALS: BP 146/87; PULSE 74; RESP 16; TEMP 98.2; O2SAT 98
--- NOTE | 2016-10-12 08:30 | HHI.PR ---
Subjective History of Present Illness Patient abdominal pain better advance diet as tolerated have high Lipase GI. input noted . d/w RN Deidra consulting Psych for mental capasity evaluation and director case for discharge planning. Patient Awake Alert orianted x 4 wants to go home today. Review of Systems Constitutional Constitutional: Fatigue, Weakness GI/Abdomen GI/Abdominal Exam: Abdominal Pain Vitals/Results Intake & Output 10/11/16 10/11/16 10/12/16 15:00 23:00 07:00 Intake Total 600 ml 60 ml Output Total 1 ml 2 ml Balance -1 ml 598 ml 60 ml Intake Oral 600 ml 60 ml Output Urine Total 0 ml Stool Total 1 ml 2 ml # Voids 2 4 2 # Bowel Movements 0 0 Vital Signs Vital Signs Date Time Temp Pulse Resp B/P Pulse Ox O2 Delivery O2 Flow Rate FiO2 10/12/16 00:00 98.7 76 20 153/89 100 10/11/16 20:00 98.8 74 20 161/90 99 10/11/16 16:00 98.4 78 18 144/82 95 10/11/16 12:00 98.1 80 18 140/80 95 CBC/BMP: 10/11/16 0600 10/11/16 0600 Physical Exam General General Appearance: No Acute Distress, Comfortable Eyes Eye Exam: Pupils Equal, Pupils Reactive, Sclera White, Extraocular Movement Intact Throat Throat Exam: Oral Mucosa [place] & Moist, Oral Pharynx Normal Neck Neck Exam: Neck Supple, Trachea Midline Pulmonary Resp Exam: Clear Bilaterally, Breath Sounds Equal, No Distress Cardiology CV Exam: Regular, Normal Sinus Rhythm Gastrointestinal/Abdomen GI Exam: Soft, Non-Tender, Bowel Sounds Present Musculoskeletal MS Exam: Normal Tone, Good Strength Integumentary Skin Exam: Clear, Warm, Dry, Intact Extremeties Extremities Exam: No Edema Neurologic Neuro Exam: Alert, Awake, Oriented, Speech Clear, Moving All Extremities PUD Prophylasis PUD Prophylaxis: Protonix Assessment/Plan Assessment/Plan ASSESSMENT AND PLAN 1. This is a 71-year-old female who came to the ER diagnosed with abdominal pain most likely secondary from acute pancreatitis. The patient has a high lipase. advancing diet as tolerated... on pain medicine. 2. The patient also has a history of adhesions and lysis of adhesions in the anterior abdominal wall secondary to multiple abdominal surgeries. 3. Nausea and vomiting. The patient is on Zofran. 4. History of atrial fibrillation. The patient is on Eliquis and metoprolol. 5. History of anxiety. Continue with Xanax. 6. History of hypothyroidism. Continue levothyroxine 75 mcg p.o. daily. 7. Alcohol abuse. The patient advised to quit. The patient is on thiamine and folic acid and also on Ativan. 8. DVT prophylaxis. SCDs. 9. GI prophylaxis. Protonix 40 mg daily. 10. Vulvar rash started on nystatin cream. consulting Psych for mental capasity evaluation and director case for discharge planning. ..Patient awake alert and orianted x 4 wants to go home today. ok to dc home today. f/u with PCP 1 week. Discussed Condition with: Patient Carroll Brown MD Oct 12, 2016 08:30
[2016-10-12] MEDS: METOPROLOL TARTRATE 25 MG TAB PO SCH (09:36)
[2016-10-12] MEDS: SODIUM CHLORIDE 0.9% FLUSH 5 ML FLUSH FLUSH SCH (09:36)
[2016-10-12] MEDS: FOLIC ACID 1 MG TAB PO SCH (09:36)
[2016-10-12] MEDS: THIAMINE HCL 100 MG TAB PO SCH (09:36)
[2016-10-12] MEDS: PANTOPRAZOLE SOD 40 MG DELAYED RELEASE TAB PO SCH (09:36)
[2016-10-12 12:00] VITALS: BP 159/99; PULSE 65; RESP 18; TEMP 97.7; O2SAT 99
--- NOTE | 2016-10-31 05:51 | MD ---
cc: CARROLL DAS MD ADMISSION DATE: 10/08/2016 DISCHARGE DATE: 10/12/2016 DISPOSITION Okay to discharge the patient home. The patient refused to go to an REGI and a group home. Risks, benefits and alternatives were explained to the patient including . CONDITION AT THE TIME OF DISCHARGE Satisfactory. ACTIVITY As tolerated. DIET Cardiac diet. ALLERGY TO SULFA. DISCHARGE MEDICATIONS 1. Nystatin apply to affected area twice a day. 2. Eliquis 5 mg p.o. at bedtime. 3. Levothyroxine 112 mcg p.o. daily. 4. Metoprolol 12.5 mg p.o. daily. 5. Thiamine 100 mg p.o. daily. 6. Protonix 40 mg p.o. daily. ADMISSION DIAGNOSIS Abdominal pain secondary to chronic pancreatitis. Acute on chronic pancreatitis. DISCHARGE DIAGNOSES 1. Abdominal pain improved. 2. Acute on chronic pancreatitis, improved. 3. Nausea and vomiting secondary to acute pancreatitis which is improved. 4. History of atrial fibrillation. 5. History of anxiety. 6. History of hypothyroidism. 7. History of alcohol abuse. HOSPITAL COURSE This is a 71-year-old female admitted with abdominal pain, seen by GI. Had acute on chronic pancreatitis. The patient was given pain medication and kept n.p.o. The patient's condition improved. The patient remained stable. No acute event happened. The patient was discharged in a satisfactory condition. Further details in the medical record. Carroll Das MD EA/ABIODUN /11:26 AM /5:43 AM
[2016-11-16] MEDS ORDERED: WHEEMIS3 (15:54)
[2016-11-16] MEDS ORDERED: COMMODE 3-IN-11 MIS (15:54)
[2016-11-21] MEDS ORDERED: APIX5TAB PO (08:58)
[2016-11-21] MEDS ORDERED: CHOL5000 PO (08:58)
[2016-11-21] MEDS ORDERED: LEVO-168 PO (08:58)
[2016-11-21] MEDS ORDERED: AMLO5 PO (08:58)
[2016-11-21] MEDS ORDERED: THERTAB15 PO (08:58)
[2016-11-21] MEDS ORDERED: VENL75XR PO (08:58)
[2016-11-21] MEDS ORDERED: CLON1 PO (08:58)
[2016-11-21] MEDS ORDERED: VITA100T2 PO (08:58)
[2016-11-21] MEDS ORDERED: DOCU1CAP39 PO (08:58)
[2016-11-21] MEDS ORDERED: HYDR-3366 PO (08:58)
[2016-11-21] MEDS ORDERED: OYST250T4 PO (08:58)
[2016-11-21] MEDS ORDERED: NEXI40CA PO (08:58)
[2016-11-21] MEDS ORDERED: METO25TA3 PO (08:58)
== END 2016-10-12 13:13 | disposition left against medical advice (07) ==
LOC: PHED 21:08 → INTOOBSV 10-08 00:09 → PHEDA 10-08 00:09 → PH3A 10-08 01:56
PROVIDERS: ADMIT Specialist; ATTEND Specialist
DX: K29.70 Gastritis, unspecified, without bleeding (principal); K21.9 Gastro-esophageal reflux disease without esophagitis; R11.2 Nausea with vomiting, unspecified; E03.9 Hypothyroidism, unspecified; I10 Essential (primary) hypertension; I25.10 Atherosclerotic heart disease of native coronary artery without angina pectoris; I48.91 Unspecified atrial fibrillation; F32.9 Major depressive disorder, single episode, unspecified; F41.9 Anxiety disorder, unspecified; F10.10 Alcohol abuse, uncomplicated; Z79.01 Long term (current) use of anticoagulants; Z86.73 Personal history of transient ischemic attack (TIA), and cerebral infarction without residual deficits; Z72.89 Other problems related to lifestyle; Z23 Encounter for immunization; Z85.3 Personal history of malignant neoplasm of breast
CPT/HCPCS: 80048; 80053; 80076; 80329; 81001; 82010; 82150; 82948; 83605; 83690; 83735; 85025; 87040; 87086; 90471; 90686; 96361; 96365; 96375; 99285; C9113; G0378; J0780; J2060; J2405; J3411; J7030; J7042; G0008; G0480; Q2038

== ENCOUNTER 2016-10-13 11:57 | Emergency (ER) | payer MEDICARE ==
[~2016-10-13 11:57] MED LIST changes: +ALPR1TAB3 PO; +FOLI5CAP PO; +LEVO-168 PO; +METO25TA3 PO; +ZOFR4TAB3 SL; +blood pressure med
[2016-10-13] MEDS ORDERED: LORazepam 1 MG TAB PO ONE (12:15)
--- NOTE | 2016-10-13 12:18 | PD ---
HPI Chief Complaint: anxiety/depression Time Seen by Provider: 12:13 Travel History International Travel<30 days: No Contact w/Intl Traveler<30days: No Traveled to known affect area: No History of Present Illness HPI 71-year-old female brought in by ambulance with reports of anxiety. Patient states she's felt dizzy and not herself since 4:00 this morning. Patient states he went to a neighbor's house because she was afraid she was having "another stroke". Patient has no focal deficit complaints at this time. Patient is on our request for atrial fibrillation. Patient relates that she is still upset regarding her 's recent and which happened several months ago. [facility], and has a niece who lives nearby. Patient has no other local family. Patient denies nausea, vomiting, headache, numbness, or specific weakness. She is allergic to sulfa. PFSH Past Medical History Arthritis: Yes Asthma: No Anxiety: Yes Depression: Yes Heart Rhythm Problems: Yes (A FIB) Cancer: Yes (LEFT BREAST CA) Cardiovascular Problems: Yes High Cholesterol: No Chemotherapy: No Chest Pain: No Congestive Heart Failure: No Cerebrovascular Accident: Yes (l side) Coronary Artery Disease: Yes Diabetes: No Diminished Hearing: Yes Endocrine: Yes Gastrointestinal Disorders: Yes (GASTRIC ULCERS) GERD: Yes Genitourinary: No Hiatal Hernia: No Hypertension: Yes Immune Disorder: No Implanted Vascular Access Dvce: No Musculoskeletal: Yes Neurologic: No Psychiatric: No Reproductive: No Respiratory: No Immunizations Current: Yes Pancreatitis: Yes Radiation Therapy: Yes Thyroid Disease: Yes (hypothyroid disease) Ulcer: Yes (peptic ulcers) Menopausal: Yes : 2 Para: 1 Miscarriage: 1 Past Surgical History Abdominal Surgery: Yes (LYSIS OF ADHESIONS ) Appendectomy: Yes Gynecologic Surgery: Yes Hysterectomy: Yes Pacemaker: No Other Surgery: Yes (COLDWELL/SINUS REPAIR) Social History Alcohol Use: Yes (drinks every day 2-3 glasses of josiah elizabeth) Tobacco Use: No (quit 20+ yrs ago smoked cigs) Substance Use: No Allergies-Medications (Allergen,Severity, Reaction): Coded Allergies: Sulfa (Verified Allergy, Intermediate, rash, 05/18/16) Reported Meds & Prescriptions Reported Meds & Active Scripts Active Eliquis (Apixaban) 5 Mg Tab 5 Mg PO BID Reported [blood pressure med] Levothyroxine (Levothyroxine Sodium) 112 Mcg Tab 112 Mcg PO DAILY Thiamine (Thiamine HCl) 100 Mg Tab 100 Mg PO DAILY Folic Acid 5 Mg Cap 1 Mg PO DAILY Metoprolol Tartrate 25 Mg Tab 12.5 Mg PO DAILY Nexium (Esomeprazole DR) 40 Mg Capdr 40 Mg PO DAILY Eliquis (Apixaban) 5 Mg Tab 5 Mg PO HS Alprazolam 1 Mg Tab 1 Mg PO Q8H PRN Review of Systems Except as stated in HPI: all other systems reviewed are Neg General / Constitutional: No: Fever Eyes: No: Visual changes HENT: No: Headaches Cardiovascular: No: Chest Pain or Discomfort Respiratory: No: Shortness of Breath Gastrointestinal: No: Abdominal Pain Genitourinary: No: Dysuria Musculoskeletal: No: Pain Skin: No Rash Neurologic: No: Weakness Psychiatric: No: Depression Endocrine: No: Polydipsia Hematologic/Lymphatic: No: Easy Bruising Physical Exam Narrative GENERAL: Patient appears very anxious, occasionally tearful, and slow to respond to questioning. SKIN: Warm and dry. Normal color. Normal turgor. HEAD: Atraumatic. Normocephalic. EYES: Pupils equal and round. No scleral icterus. No injection or drainage. ENT: No nasal bleeding or discharge. Mucous membranes pink and moist. Pharynx is normal. There is no facial drooping. NECK: Trachea midline. No JVD. Supple and nontender. CARDIOVASCULAR: Irregular rate and rhythm. No murmurs appreciated this time. RESPIRATORY: No accessory muscle use. Clear to auscultation. Breath sounds equal bilaterally. GASTROINTESTINAL: Abdomen soft, non-tender, nondistended. Hepatic and splenic margins not palpable. MUSCULOSKELETAL: Extremities without clubbing, cyanosis, or edema. No obvious deformities. NEUROLOGICAL: Awake and alert. No obvious cranial nerve deficits. Motor grossly within normal limits. Five out of 5 muscle strength in the arms and legs. Normal speech. Patient has normal nose to finger movement bilaterally. She has normal supervisor laundry strength bilaterally. There are no focal deficits perceived by exam at this time. PSYCHIATRIC: Patient appears depressed, anxious, and flat affect. Insight and judgment normal. Data Data Last Documented VS Vital Signs Date Time Temp Pulse Resp B/P Pulse Ox O2 Delivery O2 Flow Rate FiO2 10/13/16 12:51 77 18 10/13/16 12:51 98.7 169/77 97 Orders Complete Blood Count With Diff (10/13/16 12:11) Comprehensive Metabolic Panel (10/13/16 12:11) Urinalysis - C+S If Indicated (10/13/16 12:11) Electrocardiogram (10/13/16 12:11) Psych Screen (10/13/16 12:11) Alcohol (Ethanol) (10/13/16 12:11) Ct Brain W/O Iv Contrast(Rout) (10/13/16 12:11) Lorazepam (Ativan) (10/13/16 12:15) Diet Regular Basic (10/13/16 Dinner) Labs Laboratory Tests Test 10/13/16 12:46 White Blood Count 5.6 TH/MM3 Red Blood Count 3.44 MIL/MM3 Hemoglobin 12.0 GM/DL Hematocrit 34.9 % Mean Corpuscular Volume 101.6 FL Mean Corpuscular Hemoglobin 35.1 PG Mean Corpuscular Hemoglobin 34.5 % Concent Red Cell Distribution Width 16.7 % Platelet Count 254 TH/MM3 Mean Platelet Volume 6.7 FL Neutrophils (%) (Auto) 63.7 % Lymphocytes (%) (Auto) 22.7 % Monocytes (%) (Auto) 12.6 % Eosinophils (%) (Auto) 0.5 % Basophils (%) (Auto) 0.5 % Neutrophils # (Auto) 3.6 TH/MM3 Lymphocytes # (Auto) 1.3 TH/MM3 Monocytes # (Auto) 0.7 TH/MM3 Eosinophils # (Auto) 0.0 TH/MM3 Basophils # (Auto) 0.0 TH/MM3 CBC Comment DIFF FINAL Differential Comment Sodium Level 136 MEQ/L Potassium Level 4.0 MEQ/L Chloride Level 99 MEQ/L Carbon Dioxide Level 25.2 MEQ/L Anion Gap 12 MEQ/L Blood Urea Nitrogen 8 MG/DL Creatinine 0.92 MG/DL Estimat Glomerular Filtration 61 ML/MIN Rate Random Glucose 87 MG/DL Calcium Level 8.3 MG/DL Total Bilirubin 0.5 MG/DL Aspartate Amino Transf 46 U/L (AST/SGOT) Alanine Aminotransferase 23 U/L (ALT/SGPT) Alkaline Phosphatase 76 U/L Total Protein 7.4 GM/DL Albumin 3.5 GM/DL Ethyl Alcohol Level LESS THAN 3 MG/DL MDM Medical Decision Making Medical Screen Exam Complete: Yes Emergency Medical Condition: Yes Differential Diagnosis Depression. Anxiety. Possibility of stroke. Mood disorder. Need for medical clearance. Narrative Course Patient is medically stable at time of exam. Labs ordered including CBC, CMP, urinalysis, and serum alcohol. CT of the head is ordered although my suspicion for stroke is extremely low based on my exam. Patient is given 1 mg lorazepam by mouth. 1320 hrs. patient is reassessed and feels improved after the lorazepam. Labs and CT are still pending. [address] of the head is negative per radiologist. Labs are essentially unremarkable. Patient is clear for psychiatric evaluation. Patient is cleared by psychiatric evaluation. Patient is to follow-up with his counselor as previously discussed. Patient just started her antidepressant as previously prescribed. Patient may return to emergency department any time with worsening symptoms as needed. Diagnosis Primary Impression: Depression Qualified Code: F32.9 - Depression, unspecified depression type Additional Impressions: History of atrial fibrillation Anxiety Referrals: Psychiatrist Patient Instructions: General Instructions Additional Instructions: Patient is cleared by psychiatric evaluation. Patient is to follow-up with his counselor as previously discussed. Patient just started her antidepressant as previously prescribed. Patient may return to emergency department any time with worsening symptoms as needed. Med/Other Pt SpecificInfo: No Meds Exist/No RX given Disposition: 01 DISCHARGE HOME Condition: Stable Rosalio Jacobs Oct 13, 2016 12:18
[2016-10-13 12:51] VITALS: BP 169/77; PULSE 77; RESP 18; TEMP 98.7; O2SAT 97
[2016-10-13 13:14] LABS: AUTOMATED NEUTROPHIL # 3.6 TH/MM3 (1.8-7.7); BASOPHIL % 0.5 % (0.0-2.0); EOSINOPHIL % 0.5 % (0.0-4.0); HEMATOCRIT 34.9 % (35.0-46.0); HEMO FLAGS DIFF FINAL; LYMPH % 22.7 % (9.0-44.0); LYMPHOCYTE # 1.3 TH/MM3 (1.0-4.8); MEAN CELL VOLUME 101.6 FL (80.0-100.0); MEAN CORPUSCULAR HEMOGLOBIN 35.1 PG (27.0-34.0); MEAN CORPUSCULAR HGB CONC 34.5 % (32.0-36.0); MONO % 12.6 % (0.0-8.0); NEUT % 63.7 % (16.0-70.0); PLATELET COUNT 254 TH/MM3 (150-450); RED BLOOD COUNT 3.44 MIL/MM3 (4.00-5.30); RED CELL DISTRIBUTION WIDTH 16.7 % (11.6-17.2); WHITE BLOOD COUNT 5.6 TH/MM3 (4.0-11.0)
[2016-10-13 13:30] LABS: ANION GAP 12 MEQ/L (5-15)
[2016-10-13 13:35] LABS: ALKALINE PHOSPHATASE 76 U/L (45-117); ALT (GPT) 23 U/L (10-53); AST (GOT) 46 U/L (15-37); BICARBONATE 25.2 MEQ/L (21.0-32.0); BLOOD UREA NITROGEN 8 MG/DL (7-18); CHLORIDE 99 MEQ/L (98-107); GLOMERULAR FILTRATION RATE 61 ML/MIN (>89); SODIUM (NA) 136 MEQ/L (136-145); TOTAL BILIRUBIN ADULT 0.5 MG/DL (0.2-1.0)
--- NOTE | 2016-10-13 13:42 | RADRPT ---
EXAM DATE/TIME: 10/13/2016 12:22 [facility] COMPARISON: CT BRAIN W/O CONTRAST, September 01, 2016, 17:19. INDICATIONS : Altered mental status, dizziness. RADIATION DOSE: 56.77 CTDIvol (mGy) MEDICAL HISTORY : Stroke. Hypothyroidism. Carcinoma, breast. Cardiovascular disease, hypertension. SURGICAL HISTORY : Sinus surgery. ENCOUNTER: Initial ACUITY: 1 day PAIN SCALE: 0/10 LOCATION: cranial TECHNIQUE: Multiple contiguous axial images were obtained of the head. Using automated exposure control and adj ustment of the mA and/or kV according to patient size, radiation dose was kept as low as reasonably a chievable to obtain optimal diagnostic quality images. FINDINGS: CEREBRUM: The ventricles are normal for age. No evidence of midline shift, mass lesion, hemorrhage or acute in farction. No extra-axial fluid collections are seen. POSTERIOR FOSSA: The cerebellum and brainstem are intact. The 4th ventricle is midline. The cerebellopontine angle i s unremarkable. EXTRACRANIAL: The visualized portion of the orbits is intact. SKULL: The calvaria is intact. No evidence of skull fracture. CONCLUSION: Normal examination for a patient of this age. Monico Yanez MD on October 13, 2016 at 13:38 Board Certified Radiologist. This report was verified electronically.
--- NOTE | 2016-10-13 15:40 | PD ---
History of Present Illness Chief Complaint: Anxiety Time Seen by Provider: 15:20 Travel History International Travel<30 Days: No Contact w/Intl Traveler<30days: No Known affected area: No Legal Status Legal Status: Voluntary History of Present Illness: History of Present Illness HPI 71-year-old female with history of anxiety who was brought in by ambulance with reports of anxiety. As per Ed documentation " Patient relates that she is still upset regarding her 's recent and which happened several months ago." She went to her neighbor's house because she thought she was having a stroke. This has been ruled out. Patient is seen in main Ed. Awake, alert and oriented. Appropriately dressed. Speech is clear. Mood is anxious. Affect is tearful. She relates that her 5 months ago. She is not experiencing any psychosis, no lula and no suicidal or homicidal ideation, intent or plan. She became scared earlier this morning and she believed she was having a stroke. At this time she is requesting to be discharged. She continues to see Dr. Branch who has been treating her for anxiety for the past 20 years. EMR reviewed. patient was last seen by psychiatry at [facility] in Jul 2015 and she was hospitalized under the care of Dr. Méndez. Current toxicology is negative. PFSH Past Medical History Arthritis: Yes Asthma: No Anxiety: Yes Depression: Yes Heart Rhythm Problems: Yes (A FIB) Cancer: Yes (LEFT BREAST CA) Cardiovascular Problems: Yes High Cholesterol: No Chemotherapy: No Chest Pain: No Congestive Heart Failure: No Cerebrovascular Accident: Yes (2016) Coronary Artery Disease: Yes Diabetes: No Diminished Hearing: Yes Endocrine: Yes Gastrointestinal Disorders: Yes (GASTRIC ULCERS) GERD: Yes Genitourinary: No Hiatal Hernia: No Hypertension: Yes Immune Disorder: No Implanted Vascular Access Dvce: No Musculoskeletal: Yes Neurologic: No Psychiatric: No Reproductive: No Respiratory: No Immunizations Current: Yes Pancreatitis: Yes Radiation Therapy: Yes Thyroid Disease: Yes (hypothyroid disease) Ulcer: Yes (peptic ulcers) Menopausal: Yes : 2 Para: 1 Miscarriage: 1 Past Surgical History Abdominal Surgery: Yes (LYSIS OF ADHESIONS ) Appendectomy: Yes Gynecologic Surgery: Yes Hysterectomy: Yes Pacemaker: No Other Surgery: Yes (COLDWELL/SINUS REPAIR) Psychiatric History Psychiatric History Hx Psychiatric Treatment: Outpatietn treatment by Dr. Branch History of Inpatient Treatment: Yes ([facility] 2014) Social History x 5 months. 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 Hx Alcohol Use: Yes (drinks every day 2-3 glasses of josiah elizabeth) Hx Tobacco Use: No (quit 20+ yrs ago smoked cigs) Hx Substance Use: No Substance Use Type: Alcohol Hx of Substance Use Treatment: No Family Psychiatric History negative Allergies-Medications (Allergen,Severity, Reaction): Coded Allergies: Sulfa (Verified Allergy, Intermediate, rash, 05/18/16) Reported Meds & Prescriptions Reported Meds & Active Scripts Active Eliquis (Apixaban) 5 Mg Tab 5 Mg PO BID Reported [blood pressure med] Levothyroxine (Levothyroxine Sodium) 112 Mcg Tab 112 Mcg PO DAILY Thiamine (Thiamine HCl) 100 Mg Tab 100 Mg PO DAILY Folic Acid 5 Mg Cap 1 Mg PO DAILY Metoprolol Tartrate 25 Mg Tab 12.5 Mg PO DAILY Nexium (Esomeprazole DR) 40 Mg Capdr 40 Mg PO DAILY Eliquis (Apixaban) 5 Mg Tab 5 Mg PO HS Alprazolam 1 Mg Tab 1 Mg PO Q8H PRN Review of Systems Except as stated in HPI: all other systems reviewed are Neg Psychiatric: COMPLAINS OF: Anxiety Exam Alert: Yes [place]: Person (ox4) Mood: Anxious Affect: Other (congruent and variable) Speech: Clear, Logical Eye Contact: Normal Memory Intact: Comment (no impairmetn) Hallucinations: Other (negative) Delusions: No Suicidal: Ideation (neagtive) Homicidal: Ideation (negative) Insight/Judgement Fair. Not impaired MDM Medical Decision Making Medical Record Reviewed: Yes Assessment/Plan 71 year old female who presented to ed for evaluation of anxiety as well as she thought she had a stroke. Patient is medically cleared and at present does not present any acute psychiatric symptomatology. She has a hx of anxiety which she takes medication and has outpatient treatment. At this time she does not meet criteria for inpatient treatment and is requesting discharge. She will follow up with Dr. Branch. Orders Complete Blood Count With Diff (10/13/16 12:11) Comprehensive Metabolic Panel (10/13/16 12:11) Urinalysis - C+S If Indicated (10/13/16 12:11) Electrocardiogram (10/13/16 12:11) Psych Screen (10/13/16 12:11) Alcohol (Ethanol) (10/13/16 12:11) Ct Brain W/O Iv Contrast(Rout) (10/13/16 12:11) Lorazepam (Ativan) (10/13/16 12:15) Diet Regular Basic (10/13/16 Dinner) Results Vital Signs Date Time Temp Pulse Resp B/P Pulse Ox O2 Delivery O2 Flow Rate FiO2 10/13/16 12:51 77 18 10/13/16 12:51 98.7 77 18 169/77 97 Laboratory Tests Test 10/13/16 12:46 White Blood Count 5.6 Red Blood Count 3.44 Hemoglobin 12.0 Hematocrit 34.9 Mean Corpuscular Volume 101.6 Mean Corpuscular Hemoglobin 35.1 Mean Corpuscular Hemoglobin 34.5 Concent Red Cell Distribution Width 16.7 Platelet Count 254 Mean Platelet Volume 6.7 Neutrophils (%) (Auto) 63.7 Lymphocytes (%) (Auto) 22.7 Monocytes (%) (Auto) 12.6 Eosinophils (%) (Auto) 0.5 Basophils (%) (Auto) 0.5 Neutrophils # (Auto) 3.6 Lymphocytes # (Auto) 1.3 Monocytes # (Auto) 0.7 Eosinophils # (Auto) 0.0 Basophils # (Auto) 0.0 CBC Comment DIFF FINAL Differential Comment Sodium Level 136 Potassium Level 4.0 Chloride Level 99 Carbon Dioxide Level 25.2 Anion Gap 12 Blood Urea Nitrogen 8 Creatinine 0.92 Estimat Glomerular Filtration 61 Rate Random Glucose 87 Calcium Level 8.3 Total Bilirubin 0.5 Aspartate Amino Transf 46 (AST/SGOT) Alanine Aminotransferase 23 (ALT/SGPT) Alkaline Phosphatase 76 Total Protein 7.4 Albumin 3.5 Ethyl Alcohol Level LESS THAN 3 Diagnosis Primary Impression: Anxiety Additional Impression: History of atrial fibrillation Ruled Out: Depression Psychiatrically Cleared: Yes Condition: Stable Problem Qualifiers Richelle Larkin Oct 13, 2016 15:40
[2016-11-16] MEDS ORDERED: WHEEMIS3 (15:54)
[2016-11-16] MEDS ORDERED: COMMODE 3-IN-11 MIS (15:54)
[2016-11-21] MEDS ORDERED: VENL75XR PO (08:58)
[2016-11-21] MEDS ORDERED: LEVO-168 PO (08:58)
[2016-11-21] MEDS ORDERED: THERTAB15 PO (08:58)
[2016-11-21] MEDS ORDERED: APIX5TAB PO (08:58)
[2016-11-21] MEDS ORDERED: CHOL5000 PO (08:58)
[2016-11-21] MEDS ORDERED: CLON1 PO (08:58)
[2016-11-21] MEDS ORDERED: AMLO5 PO (08:58)
[2016-11-21] MEDS ORDERED: VITA100T2 PO (08:58)
[2016-11-21] MEDS ORDERED: DOCU1CAP39 PO (08:58)
[2016-11-21] MEDS ORDERED: OYST250T4 PO (08:58)
[2016-11-21] MEDS ORDERED: HYDR-3366 PO (08:58)
[2016-11-21] MEDS ORDERED: METO25TA3 PO (08:58)
[2016-11-21] MEDS ORDERED: NEXI40CA PO (08:58)
== END 2016-10-13 15:48 | disposition home or self-care (01) ==
LOC: NEDAMB 11:57
DX: F41.9 Anxiety disorder, unspecified (principal); I48.91 Unspecified atrial fibrillation; I10 Essential (primary) hypertension; Z87.891 Personal history of nicotine dependence
CPT/HCPCS: 70450; 80053; 80320; 85025

== ENCOUNTER 2016-10-14 15:58 | Inpatient (IN) | payer MEDICARE, OTHER ==
[~2016-10-14] VITALS: Ht 167.6 cm; Wt 64.0 kg
[~2016-10-14 15:58] MED LIST changes: -DIOV160T6 PO; -FOLI1 PO; -LEVO75TA3 PO; -LORA1TAB PO; -METO25 PO; -PRIS100T PO; -XANA1TAB6 PO; -ZOFR4TAB3 SL
--- NOTE | 2016-10-14 16:09 | PD ---
HPI Chief Complaint: Vann Act/suicidal Time Seen by Provider: 16:08 Travel History International Travel<30 days: No Contact w/Intl Traveler<30days: No Traveled to known affect area: No History of Present Illness HPI 71-year-old female presents the emergency department under the Vann act with local police. Patient states she made a statement that she wanted to jump off her balcony to kill herself, and her neighbors called the police. Patient was seen yesterday for question of stroke with diagnosis of depression and anxiety. She was evaluated yesterday by psychiatric services and felt to be stable to be discharged home. Patient denies any medical issues at this time. She is allergic to sulfa. PFSH Past Medical History Arthritis: Yes Asthma: No Anxiety: Yes Depression: Yes Heart Rhythm Problems: Yes (A FIB) Cancer: Yes (LEFT BREAST CA) Cardiovascular Problems: Yes High Cholesterol: No Chemotherapy: No Chest Pain: No Congestive Heart Failure: No Cerebrovascular Accident: Yes (2016) Coronary Artery Disease: Yes Diabetes: No Diminished Hearing: Yes Endocrine: Yes Gastrointestinal Disorders: Yes (GASTRIC ULCERS) GERD: Yes Genitourinary: No Hiatal Hernia: No Hypertension: Yes Immune Disorder: No Implanted Vascular Access Dvce: No Musculoskeletal: Yes Neurologic: No Psychiatric: No Reproductive: No Respiratory: No Immunizations Current: Yes Pancreatitis: Yes Radiation Therapy: Yes Thyroid Disease: Yes (hypothyroid disease) Ulcer: Yes (peptic ulcers) Menopausal: Yes : 2 Para: 1 Miscarriage: 1 Past Surgical History Abdominal Surgery: Yes (LYSIS OF ADHESIONS ) Appendectomy: Yes Gynecologic Surgery: Yes Hysterectomy: Yes Pacemaker: No Other Surgery: Yes (COLDWELL/SINUS REPAIR) Social History Alcohol Use: Yes (drinks every day 2-3 glasses of josiah elizabeth) Tobacco Use: No (quit 20+ yrs ago smoked cigs) Substance Use: No Allergies-Medications (Allergen,Severity, Reaction): Coded Allergies: Sulfa (Verified Allergy, Intermediate, rash, 05/18/16) Reported Meds & Prescriptions Reported Meds & Active Scripts Active Eliquis (Apixaban) 5 Mg Tab 5 Mg PO BID Reported [blood pressure med] Levothyroxine (Levothyroxine Sodium) 112 Mcg Tab 112 Mcg PO DAILY Thiamine (Thiamine HCl) 100 Mg Tab 100 Mg PO DAILY Folic Acid 5 Mg Cap 1 Mg PO DAILY Metoprolol Tartrate 25 Mg Tab 12.5 Mg PO DAILY Nexium (Esomeprazole DR) 40 Mg Capdr 40 Mg PO DAILY Eliquis (Apixaban) 5 Mg Tab 5 Mg PO HS Alprazolam 1 Mg Tab 1 Mg PO Q8H PRN Review of Systems ROS Limitations: Clinical Condition General / Constitutional: No: Fever Eyes: No: Visual changes HENT: No: Headaches Cardiovascular: No: Chest Pain or Discomfort Respiratory: No: Shortness of Breath Gastrointestinal: No: Abdominal Pain Genitourinary: No: Dysuria Musculoskeletal: No: Pain Skin: No Rash Neurologic: No: Weakness Psychiatric: No: Depression Endocrine: No: Polydipsia Hematologic/Lymphatic: No: Easy Bruising Physical Exam Exam Limitations: Clinical Condition Narrative GENERAL: Patient appears in no acute distress. Patient is ambulatory and somewhat confused. Patient is and is talking about how her neighbor across to steal her cat. SKIN: Warm and dry. Normal color. Normal turgor. Patient has an old healing abrasion to the distal left toe. HEAD: Atraumatic. Normocephalic. EYES: Pupils equal and round. No scleral icterus. No injection or drainage. ENT: No nasal bleeding or discharge. Mucous membranes pink and moist. Pharynx is clear. NECK: Trachea midline. No JVD. CARDIOVASCULAR: Regular rate and rhythm. RESPIRATORY: No accessory muscle use. Clear to auscultation. Breath sounds equal bilaterally. MUSCULOSKELETAL: Extremities without clubbing, cyanosis, or edema. No obvious deformities. NEUROLOGICAL: Awake and alert. No obvious cranial nerve deficits. Motor grossly within normal limits. Five out of 5 muscle strength in the arms and legs. Normal speech. PSYCHIATRIC: Patient is oriented to place and self but appears generally confused. She denies suicidal or homicidal ideation at this time. Data Data Last Documented VS Vital Signs Date Time Temp Pulse Resp B/P Pulse Ox O2 Delivery O2 Flow Rate FiO2 10/14/16 16:31 98.6 92 18 140/70 99 Orders Complete Blood Count With Diff (10/14/16 16:07) Comprehensive Metabolic Panel (10/14/16 16:07) Psych Screen (10/14/16 16:07) Drug Screen, Random Urine (10/14/16 16:07) Alcohol (Ethanol) (10/14/16 16:07) Lorazepam (Ativan) (10/14/16 17:00) Diet Regular Basic (10/14/16 Dinner) Lorazepam (Ativan) (10/14/16 20:30) MDM Medical Decision Making Medical Screen Exam Complete: Yes Emergency Medical Condition: Yes Differential Diagnosis Vann act. Suicidal ideation. Psychosis. Depression. Narrative Course Patient is medically stable at time of exam. Basic labs ordered per Psychiatric protocol. Patient was given 1 mg of lorazepam by mouth. Patient is still waiting for medical bed and psych clearance at 2100 hrs. Patient is given an additional 2 mg of lorazepam by mouth. Patient is medically stable for psychiatric evaluation. Diagnosis Primary Impression: Suicidal ideation Additional Impressions: Psychiatric exam requested by authority Medical clearance for psychiatric admission Condition: Stable Rosalio Jacobs Oct 14, 2016 16:09
[2016-10-14 16:31] VITALS: BP 140/70; PULSE 92; RESP 18; TEMP 98.6; O2SAT 99
[2016-10-14] MEDS ORDERED: LORazepam 1 MG TAB PO ONE (17:00)
[2016-10-14] MEDS ORDERED: LORazepam 2 MG TAB PO ONE (20:30)
[2016-10-14 21:14] LABS: ANION GAP 13 MEQ/L (5-15)
[2016-10-14 21:15] LABS: ALKALINE PHOSPHATASE 82 U/L (45-117); ALT (GPT) 33 U/L (10-53); AST (GOT) 69 U/L (15-37); BICARBONATE 22.1 MEQ/L (21.0-32.0); BLOOD UREA NITROGEN 9 MG/DL (7-18); CHLORIDE 102 MEQ/L (98-107); GLOMERULAR FILTRATION RATE 57 ML/MIN (>89); SODIUM (NA) 137 MEQ/L (136-145); TOTAL BILIRUBIN ADULT 0.5 MG/DL (0.2-1.0)
[2016-10-14 21:16] LABS: POTASSIUM 4.2 MEQ/L (3.5-5.1)
[2016-10-14 21:19] LABS: AUTOMATED NEUTROPHIL # 3.1 TH/MM3 (1.8-7.7); BASOPHIL % 0.4 % (0.0-2.0); EOSINOPHIL % 0.5 % (0.0-4.0); HEMATOCRIT 35.7 % (35.0-46.0); HEMO FLAGS DIFF FINAL; LYMPH % 42.9 % (9.0-44.0); LYMPHOCYTE # 2.9 TH/MM3 (1.0-4.8); MEAN CELL VOLUME 101.1 FL (80.0-100.0); MEAN CORPUSCULAR HEMOGLOBIN 35.2 PG (27.0-34.0); MEAN CORPUSCULAR HGB CONC 34.8 % (32.0-36.0); MONO % 10.3 % (0.0-8.0); NEUT % 45.9 % (16.0-70.0); PLATELET COUNT 306 TH/MM3 (150-450); RED BLOOD COUNT 3.54 MIL/MM3 (4.00-5.30); RED CELL DISTRIBUTION WIDTH 16.4 % (11.6-17.2); WHITE BLOOD COUNT 6.8 TH/MM3 (4.0-11.0)
[2016-10-14 23:33] VITALS: BP 157/80; PULSE 98; RESP 22; O2SAT 99
[2016-10-15 04:14] VITALS: BP 164/78; PULSE 103; RESP 20; TEMP 98.7; O2SAT 97
[2016-10-15] MEDS ORDERED: DIAZEPAM 10 MG TAB PO ONE (04:30)
[2016-10-15 07:00] VITALS: BP 159/74; PULSE 68; RESP 16; O2SAT 97
[2016-10-15 12:31] VITALS: BP 158/80; PULSE 81; RESP 18; TEMP 98.2; O2SAT 96
[2016-10-15 14:07] VITALS: BP 161/77; PULSE 83; RESP 16
--- NOTE | 2016-10-15 14:14 | PD ---
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 As per the reports neighbors called the police after she made statements about wanting to , and " I should jump off the balcony". She presented to ED on Oct 13, 2016 on a voluntary status with complaints of feeling like she had a stroke and for anciety. She was medically cleared and at that time did not present any suicidal or homicidal ideation. She presents today with BAL of 111. On review of EMR the patient was hospitalized at [facility] from to Oct 12 and a psychiatric consult was ordered. However the patient upon learning of the psychiatric consultation left AMA. Prior to this she was treated on the inpatient psychiatric unit at [facility] on Jul 2015 and treated for anxiety disorder. Patient is seen in J pod. Awake, alert and oriented. Dressed in hospital attire. Hygiene is fair but unkempt appearance. Speech is cleared. Focused on wanting to be discharged. She has no recollection of seeing me 2 days ago and of being in the ED. She is currently denying that she said she was going to jump off the balcony. Mood is depressed and she becomes tearful as she talks of the recent of her . There is no psychosis and no lula. Sleeping well. Patient admits to drinking 2- 3 drinks with her dinner every night and " maybe one for lunch if I go out". She minimizes her chronic alcohol use. In terms of psychiatric treatment she sees Dr. Branch , her PCP and is prescribed Xanax as well as Pristiq. It is questionable if she is compliant with the Pristiq and states " I have been on that medication for years". TC to her nephew, Jason with her verbal authorization. at [phone]. Nephew verbalizes his concern for her safety and well being. He reports that " the neighbors are more than tolerant of her behavior and watch out for her". Alledgedly she goes door to door knocking on people's doors looking for her cat as well as engages in other behaviors. He is concerned with her ability to care for herself at this point. I have called her friend and neighbor Jay at [phone] and message left to call [facility]. No pat information left on the message. PFSH Past Medical History Arthritis: Yes Asthma: No Anxiety: Yes Depression: Yes Heart Rhythm Problems: Yes (A FIB) Cancer: Yes (LEFT BREAST CA) Cardiovascular Problems: Yes (HTN ) High Cholesterol: No Chemotherapy: No Chest Pain: No Congestive Heart Failure: No Cerebrovascular Accident: Yes (2015) Coronary Artery Disease: Yes Diabetes: No Diminished Hearing: Yes Endocrine: Yes Gastrointestinal Disorders: Yes (GASTRIC ULCERS) GERD: Yes Genitourinary: No Hiatal Hernia: No Hypertension: Yes Immune Disorder: No Implanted Vascular Access Dvce: No Medical other: Yes (FLUID RETENTION-ACID REFLUX) Musculoskeletal: Yes Neurologic: No Psychiatric: No Reproductive: No Respiratory: No Immunizations Current: Yes Pancreatitis: Yes Radiation Therapy: Yes Thyroid Disease: Yes (hypothyroid disease) Ulcer: Yes (peptic ulcers) Menopausal: Yes : 2 Para: 1 Miscarriage: 1 Past Surgical History Abdominal Surgery: Yes (LYSIS OF ADHESIONS ) Appendectomy: Yes Gynecologic Surgery: Yes Hysterectomy: Yes Pacemaker: No Other Surgery: Yes (COLDWELL/SINUS REPAIR) Psychiatric History Psychiatric History Hx Psychiatric Treatment: HX OF ANXIETY AND DEPRESSION Has been followed by Dr. 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 HAs one daughter who lives out of state. Hx Alcohol Use: Yes (drinks every day 2-3 glasses of josiah elizabeth) Hx Tobacco Use: No (quit 20+ yrs ago smoked cigs) Hx Substance Use: Yes Substance Use Type: Alcohol Hx of Substance Use Treatment: No Family Psychiatric History None reported Allergies-Medications (Allergen,Severity, Reaction): Coded Allergies: Sulfa (Verified Allergy, Intermediate, rash, 05/18/16) Reported Meds & Prescriptions Reported Meds & Active Scripts Active Eliquis (Apixaban) 5 Mg Tab 5 Mg PO BID Reported [blood pressure med] Levothyroxine (Levothyroxine Sodium) 112 Mcg Tab 112 Mcg PO DAILY Thiamine (Thiamine HCl) 100 Mg Tab 100 Mg PO DAILY Folic Acid 5 Mg Cap 1 Mg PO DAILY Metoprolol Tartrate 25 Mg Tab 12.5 Mg PO DAILY Nexium (Esomeprazole DR) 40 Mg Capdr 40 Mg PO DAILY Eliquis (Apixaban) 5 Mg Tab 5 Mg PO HS Alprazolam 1 Mg Tab 1 Mg PO Q8H PRN Review of Systems Constitutional: DENIES: Diaphoretic episodes, Fatigue, Fever, Weight gain, Weight loss, Chills, Dizziness, Change in appetite, Night Sweats Endocrine: DENIES: Abnorml menstrual pattern, Heat/cold intolerance, Polydipsia , Polyuria, Polyphagia Eyes: DENIES: Blurred vision, Diplopia, Eye inflammation, Eye pain, Vision loss , Photosensitivity, Double Vision Ears, nose, mouth, throat: COMPLAINS OF: Hearing loss Respiratory: DENIES: Apneas, Cough, Snoring, Wheezing, Hemoptysis, Sputum production, Shortness of breath Gastrointestinal: COMPLAINS OF: Abdominal pain, Nausea Genitourinary: DENIES: Abnormal vaginal bleeding, Dysmenorrhea, Dyspareunia, Sexual dysfunction, Urinary frequency, Urinary incontinence, Urgency, Hematuria , Dysuria, Nocturia, Vaginal discharge Musculoskeletal: DENIES: Joint pain, Muscle aches, Stiffness, Joint Swelling, Back pain, Neck pain Integumentary: DENIES: Abnormal pigmentation, Pruritus, Rash, Nail changes, Breast masses, Breast skin changes, Nipple discharge Hematologic/lymphatic: DENIES: Bruising, Lymphadenopathy Immunologic/allergic: DENIES: Eczema, Urticaria Neurologic: DENIES: Abnormal gait, Headache, Localized weakness, Paresthesias, Seizures, Speech Problems, Tremor, Poor Balance Psychiatric: COMPLAINS OF: Anxiety, Depression Exam Alert: Yes [place]: Person (ox4) Mood: Depressed Affect: Other (variable and congruent ) Speech: Clear, Logical Eye Contact: Normal Memory Intact: Recent (impaired. Unable to recall last visit to ED 2 days ago.) Hallucinations: Other (negative) Suicidal: Ideation (deneis any) Homicidal: Ideation (deneis any) Insight/Judgement Poor. Poor MDM Medical Decision Making Medical Record Reviewed: Yes Assessment/Plan 71 year old female with history of anxiety, depression as well as alcohol abuse who is under a BA for allegedly saying she was going to jump off her balcony. She lives on the [address]. Patient has had 3 visits to healthcare facility in the past week and actually left AMA from [place] when a psychiatric consult was ordered. At this time and after communication with her family who present concern regarding her safety and ability to care for herself, her continued use of ETOH , increase in level of depression it is determined that an increase of level of care such as inpatient psychiatric treatment is required. Patient to be admitted to Dr. Shepherd. AI have received a call from Jay prather's neighbor who states that she is concerned that the patient is using her medication along with alcohol and that she is not caring for herself ( no food in her house). Orders Complete Blood Count With Diff (10/14/16 16:07) Comprehensive Metabolic Panel (10/14/16 16:07) Psych Screen (10/14/16 16:07) Drug Screen, Random Urine (10/14/16 16:07) Alcohol (Ethanol) (10/14/16 16:07) Lorazepam (Ativan) (10/14/16 17:00) Diet Regular Basic (10/14/16 Dinner) Lorazepam (Ativan) (10/14/16 20:30) Diazepam (Valium) (10/15/16 04:30) Diet Regular Basic (10/15/16 Breakfast) Diet Regular Basic (10/15/16 Lunch) Diet Regular Basic (10/15/16 Dinner) Results Vital Signs Date Time Temp Pulse Resp B/P Pulse Ox O2 Delivery O2 Flow Rate FiO2 10/15/16 12:31 98.2 81 18 158/80 96 Room Air 10/15/16 07:00 68 16 159/74 97 Room Air 10/15/16 04:14 98.7 103 20 164/78 97 10/14/16 23:33 98 22 157/80 99 Room Air 10/14/16 16:31 98.6 92 18 140/70 99 Laboratory Tests Test 10/14/16 20:15 White Blood Count 6.8 Red Blood Count 3.54 Hemoglobin 12.4 Hematocrit 35.7 Mean Corpuscular Volume 101.1 Mean Corpuscular Hemoglobin 35.2 Mean Corpuscular Hemoglobin 34.8 Concent Red Cell Distribution Width 16.4 Platelet Count 306 Mean Platelet Volume 6.8 Neutrophils (%) (Auto) 45.9 Lymphocytes (%) (Auto) 42.9 Monocytes (%) (Auto) 10.3 Eosinophils (%) (Auto) 0.5 Basophils (%) (Auto) 0.4 Neutrophils # (Auto) 3.1 Lymphocytes # (Auto) 2.9 Monocytes # (Auto) 0.7 Eosinophils # (Auto) 0.0 Basophils # (Auto) 0.0 CBC Comment DIFF FINAL Differential Comment Sodium Level 137 Potassium Level 4.2 Chloride Level 102 Carbon Dioxide Level 22.1 Anion Gap 13 Blood Urea Nitrogen 9 Creatinine 0.97 Estimat Glomerular Filtration 57 Rate Random Glucose 74 Calcium Level 8.6 Total Bilirubin 0.5 Aspartate Amino Transf 69 (AST/SGOT) Alanine Aminotransferase 33 (ALT/SGPT) Alkaline Phosphatase 82 Total Protein 8.0 Albumin 3.8 Ethyl Alcohol Level 111 Diagnosis Primary Impression: Depression Additional Impression: ETOH abuse Ruled Out: Suicidal ideation Admitting Information Admitting Physician Requests: Admit Condition: Stable Problem Qualifiers Primary Impression: Depression Qualified Code: F32.1 - Moderate single current episode of major depressive disorder Richelle Larkin Oct 15, 2016 14:14
[2016-10-15] MEDS ORDERED: ACETAMINOPHEN 325 MG TAB PO PRN (15:15)
[2016-10-15] MEDS ORDERED: ALUMINUM/MAGNESIUM/SIMETH 30 ML CUP PO PRN (15:15)
[2016-10-15] MEDS ORDERED: MAGNESIUM HYDROXIDE SUSP 30 ML CUP PO PRN (15:15)
[2016-10-15] MEDS ORDERED: PILL SPLITTER OTHER PRN (15:30)
[2016-10-15] MEDS ORDERED: LORazepam 2 MG/ML VIAL IV PUSH PRN ×4 (16:00)
[2016-10-15] MEDS ORDERED: FLUMAZENIL 0.5 MG/5 ML VIAL IV PUSH PRN (16:00)
[2016-10-15] MEDS ORDERED: LORazepam 2 MG TAB PO PRN (16:00)
[2016-10-15 16:40] VITALS: BP 157/86; PULSE 80; RESP 18; TEMP 96.8; O2SAT 99
[2016-10-15] MEDS ORDERED: APIXABAN 5 MG TABLET PO SCH (21:00)
[2016-10-15] MEDS: LORazepam 1 MG TAB PO PRN ×2 (21:57→23:57)
[2016-10-16 05:23] VITALS: BP 142/78; PULSE 72; RESP 16; TEMP 97.8
[2016-10-16] MEDS: LEVOTHYROXINE SODIUM 112 MCG TAB PO SCH (06:05)
[2016-10-16 08:32] LABS: ANION GAP 10 MEQ/L (5-15); BICARBONATE 26.4 MEQ/L (21.0-32.0); BLOOD UREA NITROGEN 18 MG/DL (7-18); CHLORIDE 102 MEQ/L (98-107); GLOMERULAR FILTRATION RATE 57 ML/MIN (>89); LDL CHOLESTEROL 43 MG/DL (0-99); POTASSIUM 4.1 MEQ/L (3.5-5.1); SODIUM (NA) 138 MEQ/L (136-145)
[2016-10-16] MEDS: THIAMINE HCL 100 MG TAB PO SCH (08:46)
[2016-10-16] MEDS: METOPROLOL TARTRATE 25 MG TAB PO SCH (08:46)
[2016-10-16] MEDS ORDERED: INFLUENZA VIRUS VACCINE (QUADRIVALENT) 0.5 ML SYR IM ONE (10:00)
[2016-10-16] MEDS ORDERED: MAGNESIUM HYDROXIDE SUSP 30 ML CUP PO PRN (13:00)
[2016-10-16] MEDS ORDERED: ALUMINUM/MAGNESIUM/SIMETH 30 ML CUP PO PRN (13:00)
[2016-10-16] MEDS ORDERED: ACETAMINOPHEN 325 MG TAB PO PRN (13:00)
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
[2016-10-16 14:12] LABS: HEMOGLOBIN A1a 1.4 %; HEMOGLOBIN A1b 1.2 %; HEMOGLOBIN Ao 87.2 %; HEMOGLOBIN LA1C 1.8 %; HEMOGLOBIN P3 3.3 %
[2016-10-16 18:17] VITALS: BP 156/73; PULSE 69; RESP 16; TEMP 98.4; O2SAT 100
[2016-10-16] MEDS: APIXABAN 5 MG TABLET PO SCH (20:32)
[2016-10-16] MEDS: LORazepam 1 MG TAB PO PRN (20:32)
[2016-10-17 04:46] VITALS: BP 145/74; PULSE 71; RESP 18; TEMP 98.6; O2SAT 98
[2016-10-17] MEDS: LEVOTHYROXINE SODIUM 112 MCG TAB PO SCH (06:01)
[2016-10-17 07:40] LABS: ANION GAP 9 MEQ/L (5-15); BICARBONATE 24.7 MEQ/L (21.0-32.0); BLOOD UREA NITROGEN 16 MG/DL (7-18); CHLORIDE 104 MEQ/L (98-107); GLOMERULAR FILTRATION RATE 72 ML/MIN (>89); LDL CHOLESTEROL 46 MG/DL (0-99); POTASSIUM 3.7 MEQ/L (3.5-5.1); SODIUM (NA) 138 MEQ/L (136-145)
[2016-10-17] MEDS: METOPROLOL TARTRATE 25 MG TAB PO SCH (08:52)
[2016-10-17] MEDS: FOLIC ACID 1 MG TAB PO SCH (08:52)
[2016-10-17] MEDS: THIAMINE HCL 100 MG TAB PO SCH (08:52)
[2016-10-17] MEDS: APIXABAN 5 MG TABLET PO SCH ×2 (08:52→20:13)
[2016-10-17] MEDS ORDERED: NICOTINE 21 MG/24 HR PATCH T-DERMAL SCH (09:00)
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
[2016-10-17 16:28] LABS: HEMOGLOBIN A1a 0.5 %; HEMOGLOBIN A1b 1.3 %; HEMOGLOBIN Ao 87.3 %; HEMOGLOBIN LA1C 1.8 %; HEMOGLOBIN P3 3.3 %
[2016-10-17 17:16] VITALS: BP 146/78; PULSE 72; RESP 18; TEMP 98.5; O2SAT 98
[2016-10-17] MEDS: LORazepam 1 MG TAB PO PRN (20:13)
[2016-10-17 20:30] VITALS: BP 194/88; PULSE 72; RESP 18; O2SAT 100
[2016-10-18 05:33] VITALS: BP 166/82; PULSE 68; RESP 18; TEMP 98.4; O2SAT 99
[2016-10-18] MEDS: LEVOTHYROXINE SODIUM 112 MCG TAB PO SCH (06:01)
[2016-10-18] MEDS: FOLIC ACID 1 MG TAB PO SCH (08:43)
[2016-10-18] MEDS: THIAMINE HCL 100 MG TAB PO SCH (08:43)
[2016-10-18] MEDS: METOPROLOL TARTRATE 25 MG TAB PO SCH (08:44)
[2016-10-18] MEDS: APIXABAN 5 MG TABLET PO SCH ×2 (08:44→20:46)
--- NOTE | 2016-10-18 14:37 | HHI.PYPN ---
Subjective Remarks Patient seen and examined with counselor. Chart reviewed. Case discussed with counselor and nursing staff in treatment team. Per nursing staff, patient has been no behavioral problem on the inpatient unit. On my examination today, the patient insists that she does not need to be in the psychiatric hospital. Counselor shares that she has received a lengthy email from patient's niece and niece's detailing concerns from patient's condo board regarding her behavior at the condo. Patient provides rationalizations for their concerns and thinks that they are making too much of it. She does admit to missing her but doesn't feel like she is depressed. She feels that she is grieving appropriately. She doesn't think that she is drinking too much. She does not think that assisted living placement is appropriate at this point but would be willing to accept a home nurse into the home. Mental status testing: Patient's registration is 3 out of 3 and her recall is one out of 3 at 5 minutes. She is oriented to person, place and date except that she believes that it is Monday and the day of the month. She is able to name 2 items and repeat a phrase. She is able to do serial sevens with 1 error in 5 iterations. She is able to do proverb interpretation. She gives the current president as Obama and the last president that she can remember is Winn. Review of Systems Other No physical complaints. Objective Alert: Yes [place]: Person, Place, Date (as above) Mood: Anxious Affect: Restricted (tearful when discussing ) Memory Intact: Comment (As above) Hallucinations: Other (No AVH) Delusions: No Delusion Type: Other (No delusional material.) Suicidal: Ideation (No SI) Homicidal: Ideation (No HI) Insight/Judgement Unclear Remarks No signs of withdrawal noted. No abnormal motor movements noted. Thought process perseverative on discharge. Speech within normal limits for rate, tone and volume. Labs Labs reviewed. GFR improved. Vitals/IOs Vital Signs Date Time Temp Pulse Resp B/P Pulse Ox O2 Delivery O2 Flow Rate FiO2 10/18/16 05:33 98.4 68 18 166/82 99 10/15/16 14:07 Room Air Assessment & Plan Problem List: (1) Adjustment disorder ICD Code: F43.20 (2) Alcohol use Assessment & Plan: Rule out use disorder ICD Code: Z78.9 Assessment & Plan Synthesizing the information available to us at this point, it is my suspicion that the patient has been experiencing complicated grief following the passing of her and has been drinking too much as a result. Alternative hypotheses include major neurocognitive disorder, although her degree of cognitive impairment is mild at worst or depression but the patient seems to have a dearth of symptoms in this regard as well. The patient does not seem to view her drinking is problematic and views her grieving is appropriate. I'm not sure that retaining her in the hospital would convince her otherwise. I do want to make sure that she is safe for discharge and so I will request an occupational therapy assessment of her ability to perform her ADLs. I do think that she would do well with home nursing. I have asked that counselor to reach out to the patient's family to see if this would be an acceptable compromise between the patient's wish to live completely independently and their concerns for her recent behavior. For the time being I will continue her medications and care as ordered. Awaiting hospitalist consult. Justification for Cont. Inpt. Monitoring for any impairments and safety. Discharge planning. Discharge Planning As above. If patient's occupational therapy evaluation fails to reveal any significant ADL deficit and family is in agreement with discharge plan, possible discharge tomorrow with home health. Request HC Surrog/Guard Advoc?: No Problem Qualifiers (1) Adjustment disorder: Qualified Code: F43.20 - Adjustment disorder, unspecified type Cesar Cintron MD Oct 18, 2016 14:37
[2016-10-18 20:38] VITALS: BP 165/83; PULSE 65; RESP 18; TEMP 97.3; O2SAT 97
[2016-10-18] MEDS: LORazepam 1 MG TAB PO PRN (20:46)
[2016-10-19 05:17] VITALS: BP 197/94; PULSE 71; RESP 17; TEMP 98.3; O2SAT 99
[2016-10-19 05:31] VITALS: BP 146/65
[2016-10-19] MEDS: LEVOTHYROXINE SODIUM 112 MCG TAB PO SCH (05:54)
[2016-10-19] MEDS: APIXABAN 5 MG TABLET PO SCH (08:20)
[2016-10-19] MEDS: FOLIC ACID 1 MG TAB PO SCH (08:20)
[2016-10-19] MEDS: THIAMINE HCL 100 MG TAB PO SCH (08:20)
[2016-10-19] MEDS: METOPROLOL TARTRATE 25 MG TAB PO SCH (08:20)
[2016-10-19] MEDS ORDERED: THIA100T PO (08:23)
[2016-10-19] MEDS ORDERED: FOLI1TAB4 PO (08:23)
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
--- NOTE | 2016-10-19 08:25 | HHI.FF ---
Face to Face Verification Diagnosis: (1) Adjustment disorder (2) Alcohol use Home Health Nursing Order: Nursing assessment with vital signs Lead Technical Writer Order: To Evaluate: Living conditions/environment, Support services Order: To Provide: Long range planning, Community services I have seen patient Sita Harvey on 10/19/16. My clinical findings support the need for the requested home health care services because: Need for psychosocial assistance Impaired cognition/judgement I certify that my clinical findings support that this patient is homebound because: Need for psychosocial assistance Cesar Cintron MD Oct 19, 2016 08:25
[2016-11-16] MEDS ORDERED: WHEEMIS3 (15:54)
[2016-11-16] MEDS ORDERED: COMMODE 3-IN-11 MIS (15:54)
[2016-11-21] MEDS ORDERED: CLON1 PO (08:58)
[2016-11-21] MEDS ORDERED: CHOL5000 PO (08:58)
[2016-11-21] MEDS ORDERED: DOCU1CAP39 PO (08:58)
[2016-11-21] MEDS ORDERED: HYDR-3366 PO (08:58)
[2016-11-21] MEDS ORDERED: LEVO-168 PO (08:58)
[2016-11-21] MEDS ORDERED: VITA100T2 PO (08:58)
[2016-11-21] MEDS ORDERED: VENL75XR PO (08:58)
[2016-11-21] MEDS ORDERED: THERTAB15 PO (08:58)
[2016-11-21] MEDS ORDERED: AMLO5 PO (08:58)
[2016-11-21] MEDS ORDERED: METO25TA3 PO (08:58)
[2016-11-21] MEDS ORDERED: APIX5TAB PO (08:58)
[2016-11-21] MEDS ORDERED: NEXI40CA PO (08:58)
[2016-11-21] MEDS ORDERED: OYST250T4 PO (08:58)
== END 2016-10-19 15:15 | disposition home or self-care (01) | DRG 897 ==
LOC: NEDAMB 15:58 → NEDA 10-15 15:09 → H260 10-15 16:34
PROVIDERS: ADMIT Psychiatry & Neurology Psychiatry; ATTEND Psychiatry & Neurology Psychiatry
DX: F10.24 Alcohol dependence with alcohol-induced mood disorder (principal); I48.91 Unspecified atrial fibrillation; F10.229 Alcohol dependence with intoxication, unspecified; Y90.5 Blood alcohol level of 100-119 mg/100 ml; E03.9 Hypothyroidism, unspecified; K21.9 Gastro-esophageal reflux disease without esophagitis; F41.9 Anxiety disorder, unspecified; F32.9 Major depressive disorder, single episode, unspecified; I10 Essential (primary) hypertension; F43.20 Adjustment disorder, unspecified
CPT/HCPCS: 80048; 80053; 80061; 80320; 83036; 85025; 99284

== ENCOUNTER 2016-10-21 19:10 | Emergency (ER) | payer MEDICARE, OTHER ==
[~2016-10-21] VITALS: Ht 160 cm; Wt 62.0 kg
[~2016-10-21 19:10] MED LIST changes: -ALPR1TAB3 PO; +FOLI1TAB4 PO; -FOLI5CAP PO
--- NOTE | 2016-10-21 19:55 | PD ---
HPI Chief Complaint: Vann act Time Seen by Provider: 19:30 Travel History International Travel<30 days: No Contact w/Intl Traveler<30days: No History of Present Illness HPI This 71-year-old woman, recently lost her , has been drinking a lot, presents back to the emergency department under a Vann act because she made suicidal/ wish statements to a neighbor. She denies drinking heavily. Neighbor Reported she was drinking heavily all day. She was discharged from the hospital 2 days ago. After being admitted for depression, drinking, and suicidal statements. Patient denies any recent illness or injury. History Past Medical History Medical History: Denies Significant Hx Menopausal: Yes : 2 Para: 1 Social History Alcohol Use: Yes (drinks every day 2-3 glasses of josiah elizabeth) Tobacco Use: No (quit 20+ yrs ago smoked cigs) Allergies-Medications (Allergen,Severity, Reaction): Coded Allergies: Sulfa (Verified Allergy, Intermediate, rash, 05/18/16) Reported Meds & Prescriptions Reported Meds & Active Scripts Active Folate (Folic Acid) 1 Mg Tab 1 Mg PO DAILY 30 Days Thiamine (Thiamine HCl) 100 Mg Tab 100 Mg PO DAILY 30 Days Eliquis (Apixaban) 5 Mg Tab 5 Mg PO BID Reported [blood pressure med] Levothyroxine (Levothyroxine Sodium) 112 Mcg Tab 112 Mcg PO DAILY Metoprolol Tartrate 25 Mg Tab 12.5 Mg PO DAILY Nexium (Esomeprazole DR) 40 Mg Capdr 40 Mg PO DAILY Eliquis (Apixaban) 5 Mg Tab 5 Mg PO HS Review of Systems Except as stated in HPI: all other systems reviewed are Neg Physical Exam Narrative GENERAL: Well-appearing 71-year-old woman, no acute distress. SKIN: Warm and dry. NECK: Trachea midline. No JVD. CARDIOVASCULAR: Regular rate and rhythm. No murmur appreciated. RESPIRATORY: No accessory muscle use. Clear to auscultation. Breath sounds equal bilaterally. GASTROINTESTINAL: Abdomen soft, non-tender, nondistended. Hepatic and splenic margins not palpable. MUSCULOSKELETAL: No obvious deformities. No edema. NEUROLOGICAL: Awake and alert. No obvious cranial nerve deficits. Motor grossly within normal limits. Normal speech. PSYCHIATRIC: Appropriate mood and affect; insight and judgment normal. Data Data Orders Complete Blood Count With Diff (10/21/16 19:20) Basic Metabolic Panel (Bmp) (10/21/16 19:20) Psych Screen (10/21/16 19:20) Drug Screen, Random Urine (10/21/16 19:20) Alcohol (Ethanol) (10/21/16 19:20) MDM Medical Decision Making Medical Screen Exam Complete: Yes Emergency Medical Condition: Yes Differential Diagnosis Intoxication, depression, other Narrative Course Medical decision making 71 year-old woman, sad and depressed, probably intoxicated, here under Vann act for making suicidal statements. The seems to be very much related to her drinking and the recent passage of her . No recent illness or injury. She is medically clear for psychiatric evaluation. Diagnosis Primary Impression: Alcohol abuse Additional Impression: Adjustment reaction Qualified Code: F43.21 - Adjustment disorder with depressed mood Juan Arellano MD Oct 21, 2016 19:55
[2016-10-21 20:02] VITALS: BP 126/65; PULSE 88; RESP 16; TEMP 98.5; O2SAT 97
[2016-10-21 20:50] LABS: AMPHETAMINE, URINE NEG (NEG); BARBITURATES, URINE NEG (NEG); COCAINE, URINE NEG (NEG)
[2016-10-22] VITALS (7 sets, daily range): BP systolic 117–185; BP diastolic 61–92; PULSE 77–110; RESP 18; TEMP 97.5–98.9; O2SAT 96–99
[2016-10-22] MEDS ORDERED: LORazepam 1 MG TAB PO ONE (06:30)
[2016-10-22 06:53] LABS: BASOPHIL % 0.7 % (0.0-2.0); EOSINOPHIL % 0.7 % (0.0-4.0); HEMATOCRIT 35.1 % (35.0-46.0); HEMO FLAGS DIFF FINAL; LYMPH % 29.2 % (9.0-44.0); MEAN CELL VOLUME 100.2 FL (80.0-100.0); MEAN CORPUSCULAR HEMOGLOBIN 34.6 PG (27.0-34.0); MEAN CORPUSCULAR HGB CONC 34.5 % (32.0-36.0); MONO % 10.7 % (0.0-8.0); NEUT % 58.7 % (16.0-70.0); PLATELET COUNT 354 TH/MM3 (150-450); RED CELL DISTRIBUTION WIDTH 15.7 % (11.6-17.2); WHITE BLOOD COUNT 6.9 TH/MM3 (4.0-11.0)
[2016-10-22 07:07] LABS: BICARBONATE 21.7 MEQ/L (21.0-32.0); POTASSIUM 3.9 MEQ/L (3.5-5.1)
[2016-10-22] MEDS ORDERED: ONDANSETRON ODT 4 MG TAB PO ONE (08:00)
[2016-10-22] MEDS ORDERED: LORazepam 2 MG TAB PO PRN (08:00)
[2016-10-22] MEDS ORDERED: LORazepam 2 MG/ML VIAL IV PUSH PRN ×4 (08:00)
[2016-10-22] MEDS ORDERED: LORazepam 1 MG TAB PO PRN (08:00)
--- NOTE | 2016-10-22 11:34 | PD ---
History of Present Illness Chief Complaint: Psychiatric Symptoms Time Seen by Provider: 11:29 Travel History International Travel<30 Days: No Contact w/Intl Traveler<30days: No Known affected area: No Legal Status Legal Status: Vann Act Vann Act Signed By: [facility] History of Present Illness: History of Present Illness HPI This 71-year-old woman with history of adjustment disorder as well as alcohol abuse who presents back to the emergency department under a Vann act. BA alleges that because she made suicidal/ wish statements to a neighbor and that she had intentions of jumping off the 14th floor balcony of her apartment .Statements were made in context of alcohol intoxication. This patient is known to me as I have evaluated twice this past month. She was admitted to [facility] on Oct 15 and discharged on October 19, 2016. Patient had referrals for counseling to help with her alcohol. [presents with BAL of 52 TC to Jay her neighbor who called the police to initiate the BA . She reports that patient again was intoxicated and that she was thinking of jumping off the 14th floor of her building. 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 Her niece Yelena was able to get her to open the door. and proceeded to drink some more. Her niece was concerned that she was going to continue to drink and act on her threats. Patient is seen in J pod. She is clinically sober at this time. Speech is clear and logical and she is ambulating well. She is denying any hallucinations, no delusions and no paranoia. She dentis any current suicidal ideation, intent or plan and states " I was just kidding". She continues to minimize her alcohol use as well as minimizing the negative consequences of her continued abuse. At this time I have consulted with Dr. Bailey pmo consultant psychiatrist . It is determined that hood will be placed under a professional certificate in order to have patient admitted to a substance abuse treatment facility.Without such care she is in danger of harm to self while intoxicated. PFSH Past Medical History Medical History: Denies Significant Hx Arthritis: Yes Asthma: No Anxiety: Yes Depression: Yes Heart Rhythm Problems: Yes (A FIB) Cancer: Yes (LEFT BREAST CA) Cardiovascular Problems: Yes (HTN ) High Cholesterol: No Chemotherapy: No Chest Pain: No Congestive Heart Failure: No Cerebrovascular Accident: Yes (2016) Coronary Artery Disease: Yes Diabetes: No Diminished Hearing: Yes Endocrine: Yes Gastrointestinal Disorders: Yes (GASTRIC ULCERS) GERD: Yes Genitourinary: No Hiatal Hernia: No Hypertension: Yes Immune Disorder: No Implanted Vascular Access Dvce: No Medical other: Yes (FLUID RETENTION-ACID REFLUX) Musculoskeletal: Yes Neurologic: No Psychiatric: No Reproductive: No Respiratory: No Immunizations Current: Yes Pancreatitis: Yes Radiation Therapy: Yes Thyroid Disease: Yes (hypothyroid disease) Ulcer: Yes (peptic ulcers) Tetanus Vaccination: Never Vaccinated Influenza Vaccination: Yes Menopausal: Yes : 2 Para: 1 Miscarriage: 1 Past Surgical History Abdominal Surgery: Yes (LYSIS OF ADHESIONS ) Appendectomy: Yes Gynecologic Surgery: Yes Hysterectomy: Yes Pacemaker: No Other Surgery: Yes (COLDWELL/SINUS REPAIR) Psychiatric History Psychiatric History Hx Psychiatric Treatment: HX OF ANXIETY AND DEPRESSION Has been followed by Dr. Maxi Branch who has been prescribing medications for anxiety History of Inpatient Treatment: Yes (Discharged from [facility] Sep) Guns or firearms in home: No Social History female who lives by herself.. Her within this past year. She is retired.. Has one daughter Hx Alcohol Use: Yes (drinks every day 2-3 glasses of josiah elizabeth) Hx Tobacco Use: No (quit 20+ yrs ago smoked cigs) Hx Substance Use: Yes Substance Use Type: Alcohol Hx of Substance Use Treatment: No Family Psychiatric History Son committed suicide. Allergies-Medications (Allergen,Severity, Reaction): Coded Allergies: Sulfa (Verified Allergy, Intermediate, rash, 10/21/16) Reported Meds & Prescriptions Reported Meds & Active Scripts Active Folate (Folic Acid) 1 Mg Tab 1 Mg PO DAILY 30 Days Thiamine (Thiamine HCl) 100 Mg Tab 100 Mg PO DAILY 30 Days Eliquis (Apixaban) 5 Mg Tab 5 Mg PO BID Reported Levothyroxine (Levothyroxine Sodium) 112 Mcg Tab 112 Mcg PO DAILY Metoprolol Tartrate 25 Mg Tab 12.5 Mg PO DAILY Nexium (Esomeprazole DR) 40 Mg Capdr 40 Mg PO DAILY Review of Systems Except as stated in HPI: all other systems reviewed are Neg Gastrointestinal: COMPLAINS OF: Nausea Neurologic: COMPLAINS OF: Poor Balance Psychiatric: COMPLAINS OF: Depression Exam Alert: Yes Ophir: Person (o x4) Mood: Anxious Affect: Other (congruent) Speech: Clear, Logical Eye Contact: Normal Memory Intact: Comment (forgetful) Hallucinations: Other (negative) Delusions: No Suicidal: Ideation (deneis any) Homicidal: Ideation (deneis any) Insight/Judgement poor. impaired MDM Medical Decision Making Medical Record Reviewed: Yes Assessment/Plan 71 year old female with hx of alcohol abuse as well as adjustment disorder who is here under a BA. This patient was discharged from [facility] at [facility] on oct 19, 2016 but has been unable to maintain sobriety on her own. At this point it is determined that her continued alcohol intake and her inability to remain sober places her at risk of harming herself. She will be placed under a PC in order to transfer her to a substance abuse treatment facility. Orders Complete Blood Count With Diff (10/21/16 19:20) Basic Metabolic Panel (Bmp) (10/21/16 19:20) Psych Screen (10/21/16 19:20) Drug Screen, Random Urine (10/21/16 19:20) Alcohol (Ethanol) (10/21/16 19:20) Diet Regular Basic (10/21/16 Dinner) Diet Regular Basic (10/22/16 Breakfast) Lorazepam (Ativan) (10/22/16 06:30) Ondansetron Odt (Zofran Odt) (10/22/16 08:00) Lorazepam (Ativan) (10/22/16 08:00) Lorazepam Inj (Ativan Inj) (10/22/16 08:00) Lorazepam (Ativan) (10/22/16 08:00) Lorazepam Inj (Ativan Inj) (10/22/16 08:00) Lorazepam Inj (Ativan Inj) (10/22/16 08:00) Lorazepam Inj (Ativan Inj) (10/22/16 08:00) Diet Regular Basic (10/22/16 Lunch) Results Vital Signs Date Time Temp Pulse Resp B/P Pulse Ox O2 Delivery O2 Flow Rate FiO2 10/22/16 07:53 98.9 110 18 134/86 97 Room Air 10/22/16 06:42 97 18 182/86 97 10/22/16 02:54 97.5 93 18 117/61 96 Room Air 10/21/16 20:04 16 10/21/16 20:02 98.5 88 16 126/65 97 Laboratory Tests Test 10/21/16 10/22/16 10/22/16 20:30 03:45 06:05 Urine Opiates Screen NEG Urine Barbiturates Screen NEG Urine Amphetamines Screen NEG Urine Benzodiazepines Screen POS Urine Cocaine Screen NEG Urine Cannabinoids Screen NEG White Blood Count 6.9 Red Blood Count 3.50 Hemoglobin 12.1 Hematocrit 35.1 Mean Corpuscular Volume 100.2 Mean Corpuscular Hemoglobin 34.6 Mean Corpuscular Hemoglobin 34.5 Concent Red Cell Distribution Width 15.7 Platelet Count 354 Mean Platelet Volume 7.3 Neutrophils (%) (Auto) 58.7 Lymphocytes (%) (Auto) 29.2 Monocytes (%) (Auto) 10.7 Eosinophils (%) (Auto) 0.7 Basophils (%) (Auto) 0.7 Neutrophils # (Auto) 4.0 Lymphocytes # (Auto) 2.0 Monocytes # (Auto) 0.7 Eosinophils # (Auto) 0.0 Basophils # (Auto) 0.0 CBC Comment DIFF FINAL Differential Comment Sodium Level 141 Potassium Level 3.9 Chloride Level 107 Carbon Dioxide Level 21.7 Anion Gap 12 Blood Urea Nitrogen 12 Creatinine 0.72 Estimat Glomerular Filtration 80 Rate Random Glucose 86 Calcium Level 8.7 Ethyl Alcohol Level 52 Diagnosis Primary Impression: Alcohol abuse Additional Impression: Adjustment reaction Problem Qualifiers Additional Impression: Adjustment reaction Qualified Code: F43.21 - Adjustment disorder with depressed mood Richelle Larkin Oct 22, 2016 11:34
[2016-10-22] MEDS ORDERED: diphenhydrAMINE HCL 50 MG/ML VIAL IM ONE (15:15)
[2016-10-22] MEDS ORDERED: methylPREDNISolone SOD SUCC 125 MG/2 ML VIAL IM ONE (15:15)
--- NOTE | 2016-10-22 15:29 | PD ---
Data Data Last Documented VS Vital Signs Date Time Temp Pulse Resp B/P Pulse Ox O2 Delivery O2 Flow Rate FiO2 10/22/16 11:00 98 170/83 Room Air 10/22/16 07:53 98.9 18 97 Orders Complete Blood Count With Diff (10/21/16 19:20) Basic Metabolic Panel (Bmp) (10/21/16 19:20) Psych Screen (10/21/16 19:20) Drug Screen, Random Urine (10/21/16 19:20) Alcohol (Ethanol) (10/21/16 19:20) Diet Regular Basic (10/21/16 Dinner) Diet Regular Basic (10/22/16 Breakfast) Lorazepam (Ativan) (10/22/16 06:30) Ondansetron Odt (Zofran Odt) (10/22/16 08:00) Lorazepam (Ativan) (10/22/16 08:00) Lorazepam Inj (Ativan Inj) (10/22/16 08:00) Lorazepam (Ativan) (10/22/16 08:00) Lorazepam Inj (Ativan Inj) (10/22/16 08:00) Lorazepam Inj (Ativan Inj) (10/22/16 08:00) Lorazepam Inj (Ativan Inj) (10/22/16 08:00) Diet Regular Basic (10/22/16 Lunch) Diet Regular Basic (10/22/16 Dinner) Methylprednisolone So Succ Inj (Solumedr (10/22/16 15:15) Diphenhydramine Inj (Benadryl Inj) (10/22/16 15:15) Labs Laboratory Tests Test 10/21/16 10/22/16 10/22/16 20:30 03:45 06:05 Urine Opiates Screen NEG Urine Barbiturates Screen NEG Urine Amphetamines Screen NEG Urine Benzodiazepines Screen POS Urine Cocaine Screen NEG Urine Cannabinoids Screen NEG White Blood Count 6.9 TH/MM3 Red Blood Count 3.50 MIL/MM3 Hemoglobin 12.1 GM/DL Hematocrit 35.1 % Mean Corpuscular Volume 100.2 FL Mean Corpuscular Hemoglobin 34.6 PG Mean Corpuscular Hemoglobin 34.5 % Concent Red Cell Distribution Width 15.7 % Platelet Count 354 TH/MM3 Mean Platelet Volume 7.3 FL Neutrophils (%) (Auto) 58.7 % Lymphocytes (%) (Auto) 29.2 % Monocytes (%) (Auto) 10.7 % Eosinophils (%) (Auto) 0.7 % Basophils (%) (Auto) 0.7 % Neutrophils # (Auto) 4.0 TH/MM3 Lymphocytes # (Auto) 2.0 TH/MM3 Monocytes # (Auto) 0.7 TH/MM3 Eosinophils # (Auto) 0.0 TH/MM3 Basophils # (Auto) 0.0 TH/MM3 CBC Comment DIFF FINAL Differential Comment Sodium Level 141 MEQ/L Potassium Level 3.9 MEQ/L Chloride Level 107 MEQ/L Carbon Dioxide Level 21.7 MEQ/L Anion Gap 12 MEQ/L Blood Urea Nitrogen 12 MG/DL Creatinine 0.72 MG/DL Estimat Glomerular Filtration 80 ML/MIN Rate Random Glucose 86 MG/DL Calcium Level 8.7 MG/DL Ethyl Alcohol Level 52 MG/DL MDM Supervised Visit with ALFREDA: Yes Narrative Course I was asked to evaluate the patient because she started to be very itchy. She reports that started in her vagina and then spread to her arms, chest, and back. On exam she has an urticarial rash over the anterior chest. It looks like an allergic reaction and I suspect it may be a reaction to a detergent or soap that's used in cleaning her are gowns. It also could be a reaction to Zofran although I think this is less likely. Patient was given a dose of Solu- Medrol, Benadryl, and her clothes were changed. We will continue to monitor her for worsening symptoms. She was Having no respiratory issues when I assessed her. Diagnosis Primary Impression: Alcohol abuse Additional Impression: Adjustment reaction Qualified Code: F43.21 - Adjustment disorder with depressed mood Diana Iglesias MD Oct 22, 2016 15:29
[2016-10-22] MEDS: APIXABAN 5 MG TABLET PO SCH (21:18)
[2016-10-23 02:04] VITALS: BP 191/93; PULSE 77; RESP 18; O2SAT 99
[2016-10-23] MEDS ORDERED: cloNIDine HCL 0.1 MG TAB PO ONE (02:45)
[2016-10-23] MEDS ORDERED: LEVOTHYROXINE SODIUM 112 MCG TAB PO SCH (06:00)
[2016-10-23 06:40] VITALS: BP 181/86; PULSE 80; RESP 18
[2016-10-23] MEDS ORDERED: METOPROLOL TARTRATE 25 MG TAB PO SCH (09:00)
[2016-10-23] MEDS ORDERED: THIAMINE HCL 100 MG TAB PO SCH (09:00)
[2016-10-23] MEDS: APIXABAN 5 MG TABLET PO SCH (09:00)
[2016-11-16] MEDS ORDERED: WHEEMIS3 (15:54)
[2016-11-16] MEDS ORDERED: COMMODE 3-IN-11 MIS (15:54)
[2016-11-21] MEDS ORDERED: VITA100T2 PO (08:58)
[2016-11-21] MEDS ORDERED: VENL75XR PO (08:58)
[2016-11-21] MEDS ORDERED: HYDR-3366 PO (08:58)
[2016-11-21] MEDS ORDERED: THERTAB15 PO (08:58)
[2016-11-21] MEDS ORDERED: CLON1 PO (08:58)
[2016-11-21] MEDS ORDERED: AMLO5 PO (08:58)
[2016-11-21] MEDS ORDERED: LEVO-168 PO (08:58)
[2016-11-21] MEDS ORDERED: OYST250T4 PO (08:58)
[2016-11-21] MEDS ORDERED: APIX5TAB PO (08:58)
[2016-11-21] MEDS ORDERED: METO25TA3 PO (08:58)
[2016-11-21] MEDS ORDERED: NEXI40CA PO (08:58)
[2016-11-21] MEDS ORDERED: DOCU1CAP39 PO (08:58)
[2016-11-21] MEDS ORDERED: CHOL5000 PO (08:58)
== END 2016-10-23 09:36 | disposition short-term general hospital (02) ==
LOC: NEPA 19:10 → NEPJ 10-23 09:36
DX: F10.10 Alcohol abuse, uncomplicated (principal); F43.21 Adjustment disorder with depressed mood; I48.91 Unspecified atrial fibrillation; I10 Essential (primary) hypertension
CPT/HCPCS: 80048; 80307; 80320; 85025; 96372; 99284; J1200; J2930

== ENCOUNTER 2016-10-31 10:37 | Inpatient (IN) | payer MEDICARE, BC ==
[2016-10-31] VITALS (7 sets, daily range): BP systolic 137–210; BP diastolic 85–109; PULSE 64–107; RESP 15–22; TEMP 97.4–98.5; O2SAT 92–100
[~2016-10-31] VITALS: Ht 167.6 cm; Wt 68.8 kg
[~2016-10-31 10:37] MED LIST changes: -blood pressure med
[2016-10-31 11:47] LABS: AUTOMATED NEUTROPHIL # 3.6 TH/MM3 (1.8-7.7); BASOPHIL % 0.4 % (0.0-2.0); HEMATOCRIT 39.8 % (35.0-46.0); HEMO FLAGS DIFF FINAL; LYMPH % 19.1 % (9.0-44.0); LYMPHOCYTE # 1.1 TH/MM3 (1.0-4.8); MEAN CELL VOLUME 96.5 FL (80.0-100.0); MEAN CORPUSCULAR HEMOGLOBIN 33.4 PG (27.0-34.0); MEAN CORPUSCULAR HGB CONC 34.6 % (32.0-36.0); MONO % 19.2 % (0.0-8.0); NEUT % 61.3 % (16.0-70.0); PLATELET COUNT 310 TH/MM3 (150-450); RED BLOOD COUNT 4.13 MIL/MM3 (4.00-5.30); RED CELL DISTRIBUTION WIDTH 15.2 % (11.6-17.2); WHITE BLOOD COUNT 5.8 TH/MM3 (4.0-11.0)
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
[2016-10-31 12:09] LABS: ALT (GPT) 35 U/L (10-53); ANION GAP 12 MEQ/L (5-15); AST (GOT) 35 U/L (15-37); BICARBONATE 25.2 MEQ/L (21.0-32.0); BLOOD UREA NITROGEN 14 MG/DL (7-18); CHLORIDE 94 MEQ/L (98-107); GLOMERULAR FILTRATION RATE 60 ML/MIN (>89); POTASSIUM 3.6 MEQ/L (3.5-5.1); SODIUM (NA) 131 MEQ/L (136-145)
[2016-10-31 12:11] LABS: ALKALINE PHOSPHATASE 93 U/L (45-117); TOTAL BILIRUBIN ADULT 0.8 MG/DL (0.2-1.0)
[2016-10-31] MEDS ORDERED: LORazepam 1 MG TAB PO ONE (13:15)
[2016-10-31] MEDS ORDERED: MORPHINE SULFATE 4 MG/ML INJ IV PUSH ONE (20:00)
[2016-10-31] MEDS ORDERED: ONDANSETRON HCL 4 MG/2 ML VIAL IM ONE (20:00)
[2016-10-31] MEDS ORDERED: SODIUM CHLORIDE 0.9% FLUSH 5 ML FLUSH IVF PRN ×2 (20:00→21:15)
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
[2016-10-31] MEDS ORDERED: ONDANSETRON HCL 4 MG/2 ML VIAL IV PUSH ONE (20:15)
[2016-10-31 20:19] LABS: AUTOMATED NEUTROPHIL # 2.9 TH/MM3 (1.8-7.7); BASOPHIL # 0.1 TH/MM3 (0-0.2); BASOPHIL % 0.9 % (0.0-2.0); EOSINOPHIL % 0.1 % (0.0-4.0); HEMATOCRIT 37.4 % (35.0-46.0); HEMO FLAGS DIFF FINAL; LYMPH % 31.2 % (9.0-44.0); MEAN CELL VOLUME 96.1 FL (80.0-100.0); MEAN CORPUSCULAR HEMOGLOBIN 33.7 PG (27.0-34.0); MONO % 21.8 % (0.0-8.0); PLATELET COUNT 307 TH/MM3 (150-450); RED BLOOD COUNT 3.89 MIL/MM3 (4.00-5.30); RED CELL DISTRIBUTION WIDTH 14.9 % (11.6-17.2); WHITE BLOOD COUNT 6.3 TH/MM3 (4.0-11.0)
[2016-10-31 20:29] LABS: APTT (PATIENT) 29.9 SEC (24.3-30.1); INTERNATIONAL NORMALIZED RATIO 1.2 RATIO; PROTHROMBIN TIME - PATIENT 12.8 SEC (9.8-11.6)
--- NOTE | 2016-10-31 20:39 | RADRPT ---
EXAM DATE/TIME: 10/31/2016 20:15 [facility] COMPARISON: CHEST SINGLE AP, September 01, 2016, 16:54. INDICATIONS : Evaluate chest for trauma, fell MEDICAL HISTORY : None. SURGICAL HISTORY : None. ENCOUNTER: Initial ACUITY: 1 day PAIN SCORE: 0/10 LOCATION: chest FINDINGS: Pain infiltrate or pulmonary contusion suspected laterally of the left mid to lower lung. No pneumoth orax is seen. No perceptible rib fracture. Heart size stable, within normal limits. CONCLUSION: Suspected pulmonary contusion or infiltrate at left mid to lower lung. No perceptible fracture. Estevan Reed MD on October 31, 2016 at 20:36 Board Certified Radiologist. This report was verified electronically.
--- NOTE | 2016-10-31 20:41 | RADRPT ---
EXAM DATE/TIME: 10/31/2016 20:11 [facility] COMPARISON: No previous studies available for comparison. INDICATIONS : Left hip pain, fell MEDICAL HISTORY : None. SURGICAL HISTORY : None. ENCOUNTER: Initial ACUITY: 1 day PAIN SCORE: 8/10 LOCATION: Left Hip FINDINGS: There is a comminuted intertrochanteric fracture of the left femur with moderate medial angulation de formity. There is mild medial displacement of the lesser trochanteric fracture fragment. CONCLUSION: Comminuted intertrochanteric fracture of the left femur with medial angulation deformity. Estevan Reed MD on October 31, 2016 at 20:39 Board Certified Radiologist. This report was verified electronically.
[2016-10-31 20:45] LABS: ALKALINE PHOSPHATASE 85 U/L (45-117); ALT (GPT) 31 U/L (10-53); ANION GAP 15 MEQ/L (5-15); AST (GOT) 37 U/L (15-37); BICARBONATE 21.1 MEQ/L (21.0-32.0); BLOOD UREA NITROGEN 16 MG/DL (7-18); CHLORIDE 94 MEQ/L (98-107); GLOMERULAR FILTRATION RATE 51 ML/MIN (>89); POTASSIUM 3.5 MEQ/L (3.5-5.1); SODIUM (NA) 130 MEQ/L (136-145); TOTAL BILIRUBIN ADULT 0.7 MG/DL (0.2-1.0)
[2016-10-31] MEDS ORDERED: HYDROmorphone HCL PF 1 MG/ML VIAL IV PUSH ONE (20:45)
[2016-10-31] MEDS ORDERED: ONDANSETRON HCL 4 MG/2 ML VIAL IVP PRN (21:15)
[2016-10-31] MEDS ORDERED: HYDROmorphone HCL PF 1 MG/ML VIAL IV PRN (21:15)
[2016-10-31] MEDS ORDERED: NALOXONE HCL 0.4 MG/ML AMP IV PRN (21:15)
[2016-10-31] MEDS ORDERED: diphenhydrAMINE HCL 50 MG/ML VIAL IV PRN (21:15)
[2016-10-31] MEDS ORDERED: ENALAPRILAT 1.25 MG/ML VIAL IV PUSH PRN (21:15)
[2016-10-31] MEDS: LACTATED RINGER'S 1000 ML INJ 1,000 ML IV SCH (21:33)
[2016-10-31 23:20] LABS: AMPHETAMINE, URINE NEG (NEG); BARBITURATES, URINE NEG (NEG); COCAINE, URINE NEG (NEG)
[2016-10-31 23:21] LABS: BACTERIA, URINE RARE /hpf; BLOOD, URINE NEG (NEG); COMMENT (UR) CULT NOT INDICATED; CULTURE IF INDICATED CULT NOT INDICATED; GLUCOSE,URINE NEG (NEG); GRANULAR CAST, URINE 2 /lpf; HYALINE CAST, URINE 2 /lpf (RARE); KETONE, URINE 10 mg/dL (NEG); MUCUS URINE FEW /lpf (OCC); NITRITE,URINE NEG (NEG); PH, URINE 6.5 (5.0-8.5); URINE COLOR YELLOW (YELLW/STRAW)
[2016-10-31] MEDS: LACTATED RINGER'S 1000 ML IV SCH (23:45)
[2016-10-31] MEDS: SODIUM CHLORID 0.9% 500 ML IV SCH (23:45)
[2016-10-31] MEDS ORDERED: INSULIN HUMAN REGULAR 1,000 UNITS/10 ML VIAL SQ PRN (23:45)
[2016-10-31] MEDS ORDERED: METOPROLOL TARTRATE 25 MG TAB PO PRN (23:45)
[2016-10-31] MEDS: HYDROmorphone HCL PF 1 MG/ML VIAL IV PRN (23:55)
[2016-11-01] VITALS (8 sets, daily range): BP systolic 129–161; BP diastolic 83–102; PULSE 80–131; RESP 16–18; TEMP 96.7–100.6; O2SAT 94–100
[2016-11-01] MEDS: HYDROmorphone HCL PF 1 MG/ML VIAL IV PRN ×4 (03:57→20:26)
[2016-11-01] MEDS ORDERED: LORazepam 2 MG/ML VIAL IV SCH (05:47)
[2016-11-01] MEDS: LACTATED RINGER'S 1000 ML INJ 1,000 ML IV SCH ×3 (06:06→20:33)
[2016-11-01] MEDS ORDERED: METOPROLOL TARTRATE 5 MG/5 ML VIAL IV PUSH PRN (06:30)
[2016-11-01] MEDS ORDERED: LORazepam 2 MG/ML VIAL IV PUSH PRN ×4 (06:45)
[2016-11-01] MEDS ORDERED: LORazepam 2 MG TAB PO PRN (06:45)
[2016-11-01] MEDS ORDERED: LORazepam 1 MG TAB PO PRN (06:45)
[2016-11-01] MEDS ORDERED: FLUMAZENIL 0.5 MG/5 ML VIAL IV PUSH PRN (06:45)
[2016-11-01] MEDS: ACETAMINOPHEN 325 MG TAB PO PRN ×2 (06:49→17:49)
--- NOTE | 2016-11-01 06:53 | HHI.FPPN ---
Addendum to progress note ADDENDUM Reason for addendum: Additonal documentation Additional information Family Practice Mar[facility] Note Subjective: 71-year-old female with history paroxysmal afib and stroke, hospitalized yesterday morning for SI and L hip fracture obtained in ED. She was scheduled to have surgery this morning to repair L hip fracture. Livia was called at 6:45am after pt presenting with HTN to 210/100 and tachycardia to 140. Halcjt alert was incidentally heard overhead. At time Dr. Mendez arrived to bedside, floor nurse and Halicat nurse were working to stabilize patient. There was some suspicion for alcohol withdrawal, as pt reports two glasses Garrett Moreau/nightly and presenting with chills and shaking. Warm blankets had been placed on patient after complained of chills, removed when temperature read 104.0F. Nursing staff noted potential CIWA scoring of 2 and 7 this morning, though pt not officially on CIWA protocol. Primary team had already been contacted by telephone and ordered Ativan 0.5 mg x1. Patient was sleepy s/p Ativan, but rousable to verbal prompting. Oriented to person and place (state, city), but not reason for hospitalization. Denies headache, chest pain, shortness of breath, or any present complaints. Code status unknown- as presented with SI, will presume full code. Objective VITALS: Temp 104.0F/103.6F. Pulse 140. B/P 160/100. O2 92-94% on 3L NC. GEN: Thin female who appears sleepy. DERM: Excessively warm, dry. No erythema, ecchymoses, or ulcers HEENT: Pupils constricted bilaterally ~1mm. EOMI. Mucous membranes moist. Airway patent. NECK: No LAD. CV: Tachycardic. Regular rhythm. No murmur. Radial pulse 2+, bounding. RESP: Anterior lung exam with breath sounds equal bilaterally. No wheezing. Speaking in full sentences. GI: Soft, non-tender, no guarding. MSK: Lower extremity exam: LEFT leg externally rotated. Extremely painful to rotational movement. R leg with increased rigidity/tone while in extension, but full AROM full at knee. Wiggles toes bilaterally. Sensation intact to light touch b/l. NEURO: Oriented to self, place (state, city), but not reason for hospitalization (states: "me"). ROM limited at L hip secondary to known fracture. Otherwise, gross motor and sensory function intact. No ptosis. No facial droop. Slow and poorly enunciated speech, but coherent. PSYCH: Not responding to internal stimuli. Assessment 71-year-old female with history A. fib and stroke, hospitalized yesterday for SI and L hip fracture, presents with tachycardia (140), fever ( 104.0F), and HTN (160/100). Differential: tachycardia/HTN secondary to inadequate pain control for L hip fracture vs re-entry into afib with RVR vs withdrawal (BZD vs Ethanol) vs sepsis. Chart review of labs 10/31/16: U/A not suggestive of UTI. UDS positive for BZD- no BZD currently in medication reconciliation. CBC without leukocytosis. Electrolytes grossly wnl. Plan -Metoprolol 5mg IV x3 q5m PRN tachycardia (hold for HR <90) -EKG ordered- my interpretation suggests sinus tachycardia (150) with ST- depressions in V3-V5. As P waves before every QRS and regular rhythm, not in atrial fibrillation. No ST-elevations. -Suspected ST-depressions secondary to demand ischemia from tachycardia -Trop x1, CKMB x1, and repeat EKG ordered for 10am -[facility] protocol ordered -Obtain pending AM labs (CBC, BMP). Also added lactic acid and blood cultures x2 -Continue to trend vitals, including temperature. Suspect warm blankets as cause of high temperature. -Remain NPO except meds in case of surgery today -Primary team contacted x2 by nursing staff -When left floor, patient was stable with primary team assuming follow up of patient labs and care Addendum: HR responded well to metoprolol IV with HR decreasing to <100. Temperature also trending downward 104 -> 102.6. Increased suspicion for BZD or alcohol withdrawal vs inadequate pain control causing tachycardia/HTN. DW: Ammy Dove MD R1 Nov 01, 2016 06:53
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
[2016-11-01 07:56] LABS: INTERNATIONAL NORMALIZED RATIO 1.1 RATIO; PROTHROMBIN TIME - PATIENT 12.2 SEC (9.8-11.6)
[2016-11-01] MEDS: LEVOTHYROXINE SODIUM 112 MCG TAB PO SCH (08:00)
[2016-11-01 08:11] LABS: BICARBONATE 26.9 MEQ/L (21.0-32.0); POTASSIUM 3.5 MEQ/L (3.5-5.1)
[2016-11-01] MEDS ORDERED: PILL SPLITTER OTHER PRN (08:15)
[2016-11-01] MEDS: PANTOPRAZOLE SOD 40 MG DELAYED RELEASE TAB PO SCH ×2 (09:00→17:57)
[2016-11-01] MEDS: DOCUSATE SODIUM 100 MG CAP PO SCH ×2 (09:00→20:25)
[2016-11-01] MEDS: SODIUM CHLORIDE 0.9% FLUSH 5 ML FLUSH IVF SCH ×3 (09:00→20:31)
[2016-11-01] MEDS: METOPROLOL TARTRATE 25 MG TAB PO SCH (10:14)
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
--- NOTE | 2016-11-01 11:38 | EKG ---
Date Performed: 10/31/2016 Time Performed: 21:00:13 PTAGE: 71 years EKG: Sinus rhythm WITH SINUS ARRHYTHMIA WITH SHORT MD INTERVAL BORDERLINE ECG PREVIOUS TRACING : 09/02/2016 04.14 No significant change from previous tracing noted. DOCTOR: Chalo Hassan Interpretating Date/Time 11/01/2016 11:38:14
[2016-11-01] MEDS ORDERED: FAMOTIDINE 20 MG/2 ML VIAL ONE (12:00)
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
[2016-11-01] MEDS ORDERED: ceFAZolin 2 GM PREMIX 50 ML ONE (12:30)
[2016-11-01] MEDS ORDERED: GENTAMICIN SULFATE 80 MG/2 ML VIAL ONE (12:30)
[2016-11-01] MEDS ORDERED: VANCOMYCIN HCL 1000 MG VIAL ONE (12:30)
[2016-11-01] MEDS ORDERED: MIDAZOLAM HCL 2 MG/2 ML VIAL ONE (12:34)
[2016-11-01] MEDS ORDERED: fentaNYL CITRATE 250 MCG/5 ML AMP ONE (12:35)
[2016-11-01] MEDS ORDERED: ACETAMINOPHEN 1000 MG/100 ML VIAL IV ONE (12:35)
[2016-11-01] MEDS ORDERED: HYDROmorphone HCL PF 2 MG/ML VIAL ONE (12:35)
[2016-11-01] MEDS ORDERED: ePHEDrine/NS 25 MG/5 ML SYR IV ONE (13:17)
[2016-11-01] MEDS ORDERED: PROPOFOL 200 MG/20 ML AMP IV ONE (13:17)
[2016-11-01] MEDS ORDERED: ONDANSETRON HCL 4 MG/2 ML VIAL IV PUSH ONE (13:17)
--- NOTE | 2016-11-01 13:54 | PD.OP ---
cc: Arden Perez MD Operative Report Date of Surgery: Nov 01, 2016 Preoperative Diagnosis: Displaced left hip intertrochanteric fracture Postoperative Diagnosis: Procedure: Left hip reduction and intramedullary nail fixation Anesthesia: Gen. Surgeon: Arden Perez Tobacco Sizer(s): Jarred Cleary PA-C The surgical procedure was assisted by my physician podiatrist assistant. My P.A. presence was necessary throughout this case for the manipulation and positioning of the surgical extremity. My P.A. was assisting me throughout the duration of this procedure. The skill set of a physician podiatrist assistant was medically necessary to complete this procedure. During the surgical case the medical or surgical instrument maker was working at the back table and the physician podiatrist assistant was directly assisting me. Operation and Findings: Implants used: 10 mm Synthes TFNA 130 intermediate troch nail Plan of activity: Weight-bear as tolerated Patient was seen and evaluated preoperatively. The patient has significant hip pain from intertrochanteric hip fracture. The risk and benefits of surgery were discussed in depth with the patient to include bleeding infection nonunion malunion and need for hip replacement painful hardware as well as medical competitions including but not stroke heart attack and . Informed consent was obtained. Operative site was marked. Patient was brought to the operating room and placed on fracture table. IV sedation was administered by anesthesiologist. Timeout procedure was performed. Hip and leg were prepped with alcohol followed by DuraPrep and draped in the usual sterile fashion. IV antibiotics were given prior to incision. Procedure began with reduction of fracture. Traction was applied. The leg was manipulated to achieve reduction. Excellent reduction was achieved. Fluoroscopy was used to confirm reduction. A three inch incision was made proximal to the trochanter. Subcutaneous tissue was dissected bluntly. Guidepin was placed at the tip of the trochanter and advanced into the femoral canal. Fluoroscopy confirmed appropriate guidepin placement. A opening reamer was placed over the guidepin. The Synthes TFNA nail was attached to the insertion handle. Nail was now placed through the tip of the trochanter into the femoral canal. Fluoroscopy confirmed appropriate nail placement. A second incision was made over the lateral thigh. Cannulas were placed through the insertion handle down to the femur. Guidepin was now placed through the femoral nail into the center of the femoral head. Fluoroscopy confirmed appropriate guidepin placement. Screw length was measured. Cannulated drill was placed over the guidepin. Appropriate length lag screw was now placed. Traction was released and compression was applied. The set screw was now tightened in dynamic mode. Using the insertion handle as a guide a distal interlocking screw was drilled and placed. Final fluoroscopy revealed well aligned fracture with well-placed hardware. Incision was closed with 3-0 Vicryl and tierra. Sterile dressings were applied. Patient was awakened and transferred to recovery room. Arden Perez MD Nov 01, 2016 13:54
[2016-11-01] MEDS ORDERED: SODIUM CHLORIDE 0.9% FLUSH 5 ML FLUSH IVF PRN (14:00)
[2016-11-01] MEDS ORDERED: diphenhydrAMINE HCL 25 MG CAP PO PRN (14:00)
[2016-11-01] MEDS ORDERED: WALKER/ADULT/FO1 MIS (14:19)
[2016-11-01] MEDS ORDERED: OYST250T4 PO (14:24)
[2016-11-01] MEDS ORDERED: CHOL5000 PO (14:24)
[2016-11-01] MEDS ORDERED: DRIS50002 PO (14:24)
[2016-11-01] MEDS ORDERED: DO NOT ADM ANY ANTICOAGULANT DRUGS XX PRN (14:30)
[2016-11-01] MEDS: cefTRIAXone INJ 1,000 MG in SODIUM CHLORIDE 0.9% INJ 100 ML IV SCH (14:57)
[2016-11-01] MEDS ORDERED: ERGOCALCIFEROL (VIT D2) 50,000 UNIT CAP PO ONE ×2 (15:00→20:00)
--- NOTE | 2016-11-01 15:08 | RADRPT ---
EXAM DATE/TIME: 11/01/2016 13:48 [facility] COMPARISON: No previous studies available for comparison. INDICATIONS : ORIF left hip troch nail. MEDICAL HISTORY : None. SURGICAL HISTORY : None. ENCOUNTER: Subsequent ACUITY: 2 days PAIN SCORE: Non-responsive. LOCATION: Left hip. CONCLUSION: Fluoroscopic images during placement of compression nial/tulio left hip/proximal femur. Mohinder Apodaca MD on November 01, 2016 at 15:05 Board Certified Radiologist. This report was verified electronically.
--- NOTE | 2016-11-01 15:17 | EKG ---
Date Performed: 11/01/2016 Time Performed: 10:25:51 PTAGE: 71 years EKG: Sinus rhythm NORMAL ECG PREVIOUS TRACING : 11/01/2016 06.33 Compared to previous tracing, heart rate has slowed. DOCTOR: Chalo Hassan Interpretating Date/Time 11/01/2016 15:15:46
--- NOTE | 2016-11-01 15:22 | EKG ---
Date Performed: 11/01/2016 Time Performed: 06:33:04 PTAGE: 71 years EKG: Sinus tachycardia Lateral ST changes are nonspecific Borderline ECG PREVIOUS TRACING : 10/31/2016 21.00 Compared to previous tracing, heart rate has increased. DOCTOR: Chalo Hassan Interpretating Date/Time 11/01/2016 15:21:37
[2016-11-01] MEDS: SODIUM CHLORID 0.9% 500 ML IV SCH (15:40)
[2016-11-01] MEDS: CALCIUM/VITAMIN D 250 MG/125 U TAB PO SCH (17:50)
[2016-11-01 20:06] LABS: CREATINE KINASE 475 U/L (26-192)
[2016-11-01 20:18] LABS: CKMB 2.7 NG/ML (0.5-3.6)
[2016-11-01] MEDS: LACTATED RINGER'S 1000 ML IV SCH (20:31)
[2016-11-01] MEDS: diphenhydrAMINE HCL 25 MG CAP PO PRN (21:01)
[2016-11-02] VITALS (13 sets, daily range): BP systolic 106–148; BP diastolic 53–75; PULSE 83–106; RESP 16–17; TEMP 97–99.5; O2SAT 94–99
[2016-11-02] MEDS: LEVOTHYROXINE SODIUM 112 MCG TAB PO SCH (04:52)
[2016-11-02 05:50] LABS: REVIEW FLAG FINAL
[2016-11-02] MEDS ORDERED: HYDR-3366 PO (06:46)
--- NOTE | 2016-11-02 07:14 | PD.ORT.PN ---
Subjective Subjective Remarks POD 1 s/p IMN left hip reports pain. has not been out of bed yet Objective Vitals Vital Signs Date Time Temp Pulse Resp B/P Pulse Ox O2 Delivery O2 Flow Rate FiO2 11/02/16 04:25 98.2 97 17 148/68 96 11/02/16 03:00 91 11/02/16 00:00 97.7 106 17 115/57 94 11/01/16 20:35 96.7 95 17 129/83 96 11/01/16 20:21 96 Nasal Cannula 3.00 11/01/16 19:02 2.00 11/01/16 16:00 96.7 80 16 157/83 100 11/01/16 15:00 98.7 80 12 133/66 97 Nasal Cannula 2 11/01/16 14:45 79 12 145/85 97 Nasal Cannula 2 11/01/16 14:30 77 12 152/80 97 Nasal Cannula 3 11/01/16 14:15 86 12 157/87 97 Nasal Cannula 3 11/01/16 14:13 98.6 98 12 124/77 97 Nasal Cannula 3 11/01/16 09:27 98 Nasal Cannula 3.00 11/01/16 08:06 100.6 103 16 158/94 98 11/01/16 07:45 3.00 I/O 11/01/16 11/01/16 11/01/16 11/02/16 11/02/16 11/02/16 07:00 15:00 23:00 07:00 15:00 23:00 Intake Total 842 ml 700 ml 741 ml 1020 ml Output Total 350 ml 625 ml 200 ml 200 ml Balance 492 ml 75 ml 541 ml 820 ml Intake Oral 0 ml 0 ml 240 ml 240 ml IV Total 842 ml 100 ml 501 ml 780 ml Other 600 ml Output Urine Total 350 ml 600 ml 200 ml 200 ml Estimated Blood Loss 25 ml # Bowel Movements 0 0 0 Result Diagram: 11/02/16 0544 11/01/16 0728 Other Results Laboratory Tests Test 11/01/16 07:28 Prothrombin Time 12.2 SEC (9.8-11.6) Prothromb Time International 1.1 RATIO Ratio Imaging Last 24 hours Impressions Hip and Pelvis X-Ray 10/31/161955 Signed Impressions: Service Date/Time: Monday, October 31, 2016 20:11 - CONCLUSION: Comminuted intertrochanteric fracture of the left femur with medial angulation deformity. Estevan Reed MD Chest X-Ray 10/31/161955 Signed Impressions: Service Date/Time: Monday, October 31, 2016 20:15 - CONCLUSION: Suspected pulmonary contusion or infiltrate at left mid to lower lung. No perceptible fracture. Estevan Reed MD Objective Remarks LLE: dressing clean and dry. intact. NVI Assessment & Plan Assessment and Plan 1) Left Intertroch hip fx s/p IMN - POD 1 -WBAT -dressing changes POD 2 -CM for rehab placement -DVT prophylaxis with lovenox and DC with xarelto -norco for pain control -plan for DC to rehab -f/u with aDvid or [facility]A in 2 weeks Sebas Mcclelland Nov 02, 2016 07:14
[2016-11-02] MEDS: CALCIUM/VITAMIN D 250 MG/125 U TAB PO SCH ×3 (09:00→18:00)
[2016-11-02] MEDS: CHOLECALCIFEROL (VIT D3) 5000 UNIT CAP PO SCH (09:00)
[2016-11-02] MEDS: SODIUM CHLORIDE 0.9% FLUSH 5 ML FLUSH IVF SCH ×3 (09:00→19:32)
[2016-11-02] MEDS: DOCUSATE SODIUM 100 MG CAP PO SCH ×2 (09:00→20:16)
[2016-11-02] MEDS: METOPROLOL TARTRATE 25 MG TAB PO SCH (09:00)
[2016-11-02] MEDS: cefTRIAXone INJ 1,000 MG in SODIUM CHLORIDE 0.9% INJ 100 ML IV SCH (11:20)
[2016-11-02] MEDS: diphenhydrAMINE HCL 25 MG CAP PO PRN (11:27)
[2016-11-02] MEDS: ENOXAPARIN SODIUM 30 MG/0.3 ML SYRINGE SQ SCH (13:13)
[2016-11-02] MEDS: ACETAMINOPHEN/HYDROcodone 325 MG/10 MG TAB PO PRN ×2 (13:15→13:18)
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
[2016-11-02] MEDS: LACTATED RINGER'S 1000 ML INJ 1,000 ML IV SCH ×2 (13:19→19:32)
[2016-11-02 15:17] LABS: REVIEW FLAG FINAL
[2016-11-02 15:21] LABS: HEMATOCRIT 20.1 % (35.0-46.0)
[2016-11-02] MEDS ORDERED: SODIUM CHLOR 0.9% 250 ML INJ 250 ML IV ONE (15:45)
[2016-11-02] MEDS ORDERED: POTASSIUM CHLORIDE 20 MEQ CONTROLLED RELEASE TAB PO ONE (15:45)
[2016-11-02] MEDS ORDERED: FUROSEMIDE 20 MG/2 ML VIAL IV ONE (15:45)
[2016-11-02] MEDS ORDERED: VENLAFAXINE HCL XR 37.5 MG CAP PO ONE (15:45)
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
[2016-11-02] MEDS: ACETAMINOPHEN 325 MG TAB PO PRN (18:35)
[2016-11-02] MEDS: clonazePAM 0.5 MG TAB PO SCH (20:16)
[2016-11-03] VITALS (12 sets, daily range): BP systolic 138–184; BP diastolic 69–96; PULSE 70–89; RESP 16–19; TEMP 97.3–99.9; O2SAT 93–99
[2016-11-03] MEDS: ACETAMINOPHEN/HYDROcodone 325 MG/10 MG TAB PO PRN ×4 (03:36→16:45)
[2016-11-03] MEDS: LEVOTHYROXINE SODIUM 112 MCG TAB PO SCH (04:48)
--- NOTE | 2016-11-03 06:36 | PD.ORT.PN ---
Subjective Subjective Remarks POD 2 s/p IMN left hip reports pain better controlled. Objective Vitals Vital Signs Date Time Temp Pulse Resp B/P Pulse Ox O2 Delivery O2 Flow Rate FiO2 11/03/16 04:41 18 11/03/16 03:58 99.0 86 17 164/87 98 11/03/16 00:50 98.5 83 16 142/80 97 11/03/16 00:35 98.4 84 16 141/78 97 11/02/16 20:43 96 11/02/16 20:15 99.1 83 16 135/75 99 11/02/16 20:03 99.1 83 16 135/75 99 11/02/16 20:00 98 11/02/16 19:32 18 11/02/16 19:25 Room Air 11/02/16 17:45 99.5 95 16 120/70 95 11/02/16 17:25 99.2 91 16 127/65 97 11/02/16 16:00 99.2 91 16 127/65 97 11/02/16 12:00 97.0 83 16 106/53 99 11/02/16 08:51 95 21 11/02/16 08:00 98.9 85 16 130/65 97 I/O 11/02/16 11/02/16 11/02/16 11/03/16 11/03/16 11/03/16 07:00 15:00 23:00 07:00 15:00 23:00 Intake Total 1020 ml 480 ml 120 ml 620 ml Output Total 200 ml 25 ml 1600 ml 325 ml Balance 820 ml 455 ml -1480 ml 295 ml Intake Oral 240 ml 480 ml 120 ml IV Total 780 ml Packed Cells 620 ml Output Urine Total 200 ml 1600 ml 325 ml Drainage Total 25 ml Bladder Scan Volume Amount 25 ml # Voids 0 # Bowel Movements 0 0 0 Result Diagram: 11/02/16 1439 11/01/16 0728 Imaging Last 24 hours Impressions Hip and Pelvis X-Ray 10/31/161955 Signed Impressions: Service Date/Time: Monday, October 31, 2016 20:11 - CONCLUSION: Comminuted intertrochanteric fracture of the left femur with medial angulation deformity. Estevan Reed MD Chest X-Ray 10/31/161955 Signed Impressions: Service Date/Time: Monday, October 31, 2016 20:15 - CONCLUSION: Suspected pulmonary contusion or infiltrate at left mid to lower lung. No perceptible fracture. Estevan Reed MD Objective Remarks LLE: dressing clean and dry. intact. NVI Assessment & Plan Assessment and Plan 1) Left Intertroch hip fx s/p IMN - POD 2 -WBAT -dressing changes POD 2 -CM for rehab placement -DVT prophylaxis with lovenox and DC with xarelto -norco for pain control -Vit D and calcium replacement therapy -plan for DC to rehab -f/u with [facility] or [facility] in 2 weeks Sebas Mcclelland Nov 03, 2016 06:35
[2016-11-03] MEDS ORDERED: ERGOCALCIFEROL (VIT D2) 50,000 UNIT CAP PO SCH (08:00)
[2016-11-03] MEDS: METOPROLOL TARTRATE 25 MG TAB PO SCH (08:03)
[2016-11-03] MEDS: clonazePAM 0.5 MG TAB PO SCH ×2 (08:03→21:16)
[2016-11-03] MEDS: SODIUM CHLORIDE 0.9% FLUSH 5 ML FLUSH IVF SCH ×2 (08:03→21:16)
[2016-11-03] MEDS: DOCUSATE SODIUM 100 MG CAP PO SCH ×2 (08:03→21:00)
[2016-11-03] MEDS: PANTOPRAZOLE SOD 40 MG DELAYED RELEASE TAB PO SCH (08:03)
[2016-11-03] MEDS: CHOLECALCIFEROL (VIT D3) 5000 UNIT CAP PO SCH (08:03)
[2016-11-03] MEDS: CALCIUM/VITAMIN D 250 MG/125 U TAB PO SCH ×3 (08:03→18:22)
[2016-11-03] MEDS ORDERED: CHOLECALCIFEROL (VIT D3) 5000 UNIT CAP PO SCH (09:00)
[2016-11-03] MEDS: LACTATED RINGER'S 1000 ML INJ 1,000 ML IV SCH ×3 (09:03→21:16)
--- NOTE | 2016-11-03 10:26 | HHI.PR ---
Subjective Subjective Remarks Resting in bed Drowsy but responds to verbal stimuli Tearful when awake Sitter in room Color pale Review of Systems Constitutional Constitutional: Weakness (generalized) Musculoskeletal MS: Discomfort/Pain (postop) Integumentary Skin: Wounds (left hip clean incision, dressing clean dry and intact) Psychiatric Psychiatric: Agitation (at times), Anxiety Psychiatric Remarks Suicidal, Vann act Vitals/Results Intake & Output 11/02/16 11/02/16 11/03/16 14:59 22:59 06:59 Intake Total 480 ml 120 ml 620 ml Output Total 25 ml 1600 ml 325 ml Balance 455 ml -1480 ml 295 ml Intake Oral 480 ml 120 ml Packed Cells 620 ml Output Urine Total 1600 ml 325 ml Drainage Total 25 ml Bladder Scan Volume Amount 25 ml # Voids 0 # Bowel Movements 0 0 Vital Signs Vital Signs Date Time Temp Pulse Resp B/P Pulse Ox O2 Delivery O2 Flow Rate FiO2 11/03/16 08:00 98.2 85 19 167/96 98 11/03/16 04:41 18 11/03/16 03:58 99.0 86 17 164/87 98 11/03/16 00:50 98.5 83 16 142/80 97 11/03/16 00:35 98.4 84 16 141/78 97 11/02/16 20:43 96 11/02/16 20:15 99.1 83 16 135/75 99 11/02/16 20:03 99.1 83 16 135/75 99 11/02/16 20:00 98 11/02/16 19:32 18 11/02/16 19:25 Room Air 11/02/16 17:45 99.5 95 16 120/70 95 11/02/16 17:25 99.2 91 16 127/65 97 11/02/16 16:00 99.2 91 16 127/65 97 11/02/16 12:00 97.0 83 16 106/53 99 CBC/BMP: 11/02/16 1439 11/01/16 0728 Lab Results Laboratory Tests Test 11/02/16 11/02/16 14:39 15:34 Hemoglobin 6.8 GM/DL Hematocrit 20.1 % Blood Type O POSITIVE Crossmatch Leukocyte-Reduced Red Blood Cells Blood Bank Comment Imaging Remarks Last Impressions Hip X-Ray 11/01/16 0000 Signed Impressions: Service Date/Time: Tuesday, November 01, 2016 13:48 - CONCLUSION: Fluoroscopic images during placement of compression nial/tulio left hip/proximal femur. Mohidner Apodaca MD Hip and Pelvis X-Ray 10/31/161955 Signed Impressions: Service Date/Time: Monday, October 31, 2016 20:11 - CONCLUSION: Comminuted intertrochanteric fracture of the left femur with medial angulation deformity. Estevan Reed MD Chest X-Ray 10/31/161955 Signed Impressions: Service Date/Time: Monday, October 31, 2016 20:15 - CONCLUSION: Suspected pulmonary contusion or infiltrate at left mid to lower lung. No perceptible fracture. Estevan Reed MD Current Medications Active Medications Cholecalciferol (Vitamin D3) 5,000 units DAILY PO; Start 11/03/16 at 09:00 Clonazepam 0.5 mg 0.5 mg Q12HR PO Last administered on 11/03/16 08:03; Admin Dose 0.5 MG; Start 11/02/16 at 21:00 Enoxaparin Sodium (Lovenox Inj) 30 mg Q24H SQ Last administered on 11/02/16 13: 13; Admin Dose 30 MG; Start 11/02/16 at 13:00 Ergocalciferol (Drisdol) 50,000 units Q7D PO Last administered on 11/03/16 08:00 ; Admin Dose 50,000 UNITS; Start 11/03/16 at 08:00 Furosemide (Lasix Inj) 20 mg ONCE ONCE IV Last administered on 11/02/16 20:19; Admin Dose 20 MG; Start 11/02/16 at 15:45; Stop 11/02/16 at 15:46; Status DC Potassium Chloride (KCl) 20 meq ONCE ONCE PO Last administered on 11/02/16 18: 36; Admin Dose 20 MEQ; Start 11/02/16 at 15:45; Stop 11/02/16 at 15:46; Status DC Sodium Chloride (NS 250 ml Inj) 250 ml @ 15 mls/hr ONCE ONCE IV Last administered on 11/02/16 15:45; Admin Dose 15 MLS/HR; Start 11/02/16 at 15:45; Stop 11/03/16 at 08:24; Status DC Venlafaxine HCl (Effexor Xr) 37.5 mg ONCE ONCE PO Last administered on t 18:36; Admin Dose 37.5 MG; Start 11/02/16 at 15:45; Stop 11/02/16 at 15:46; Status DC Physical Exam General General Appearance: Pale, Anxious Eyes Eye Exam: Pupils Equal, Pupils Reactive Ears & Nose Ears & Nose Exam: Nasal Mucosa [place] (pale) Throat Throat Exam: Oral Mucosa [place] & Moist (pale) Neck Neck Exam: Neck Supple Pulmonary Resp Exam: Clear Bilaterally (low volumes), Breath Sounds Equal Cardiology CV Exam: Regular Gastrointestinal/Abdomen GI Exam: Soft, Non-Tender, Bowel Sounds Present Genitourinary Remarks Honeycutt catheter in place, orange clear urine Musculoskeletal MS Exam: Atrophy Integumentary Skin Exam: Warm, Dry Extremeties Extremities Exam: No Edema Neurologic Neuro Exam: Sedated (but does respond to verbal stimuli) Neuro Remarks Tearful VTE Prophylaxis VTE Prophylaxis Device: SCDs Assessment/Plan Assessment/Plan (1) Closed left hip fracture (2) Suicidal ideation (3) Depression (4) ETOH abuse (5) Anxiety (6) History of atrial fibrillation (7) Hypothyroid (8) Fever (9) Tachycardia 10, anemia severe Acute left femur fracture POD 2 s/p IMN left hip 11/01 -Orthopedic consult pain management per ortho SCDs/Lovenox for DVT prophy Anemia, post op -HH 12 to hgb 7.6, Transfused 11/02 recheck CBC this am to eval Currently on Lovenox low dose, . eval anxiety vs ETOH withdrawal. Ativan when necessary Suicidal ideation, lavelle in , currently on Vann Act. discussed any family visited, POA?, next of kin? Will need case management involvement as well as discharge planning for the future History of paroxysmal A. fib, stable -Continuous cardiac telemetry Lovenox/SCD for DVT prophylaxis BMP, CBC ordered , will eval today D/W Dr. Alba, seen on his byhalf discussed with Yin Ray Nov 03, 2016 10:26
[2016-11-03 11:25] LABS: HEMATOCRIT 29.3 % (35.0-46.0); MEAN CELL VOLUME 94.2 FL (80.0-100.0); MEAN CORPUSCULAR HEMOGLOBIN 32.4 PG (27.0-34.0); MEAN CORPUSCULAR HGB CONC 34.4 % (32.0-36.0); PLATELET COUNT 168 TH/MM3 (150-450); RED BLOOD COUNT 3.11 MIL/MM3 (4.00-5.30); RED CELL DISTRIBUTION WIDTH 15.6 % (11.6-17.2); REVIEW FLAG FINAL; WHITE BLOOD COUNT 13.7 TH/MM3 (4.0-11.0)
[2016-11-03 11:44] LABS: BICARBONATE 28.4 MEQ/L (21.0-32.0); POTASSIUM 3.5 MEQ/L (3.5-5.1)
--- NOTE | 2016-11-03 11:50 | HHI.PYPN ---
Subjective Remarks Patient was seen today for follow up in the medical floor, patient was again irritable and oppositional, she says she has her private psychiatrist and she has the right to be depressed since her 4 months ago. She became very tearful and distant requesting to be left alone. With recurrence and redirection she opened up a little bit more and asked why is she being admitted in psychiatry and why is she duggan acted and then she was confronted about her suicidal statement in the ER and bout her objective stomatomy of depression, but she says she never said she wanted to commit suicide and she does not want to talk about it. Patient is fully oriented X3, no attention deficit or fluctuation of consciousness observed. Review of Systems Other No changes since 11/02/2016 Objective Alert: Yes [place]: Person, Place, Date, Situation Mood: Angry Affect: Labile Memory Intact: Immediate, Recent, Remote Hallucinations: Other (she denies ) Delusions: No Delusion Type: Other (none) Suicidal: Ideation (she denies) Homicidal: Ideation (she denies) Insight/Judgement poor Labs Test 11/02/16 11/02/16 11/03/16 14:39 15:34 11:00 Hemoglobin 6.8 GM/DL 10.1 GM/DL Hematocrit 20.1 % 29.3 % Blood Type O POSITIVE Crossmatch Leukocyte-Reduced Red Blood Cells Blood Bank Comment White Blood Count 13.7 TH/MM3 Red Blood Count 3.11 MIL/MM3 Mean Corpuscular Volume 94.2 FL Mean Corpuscular Hemoglobin 32.4 PG Mean Corpuscular Hemoglobin 34.4 % Concent Red Cell Distribution Width 15.6 % Platelet Count 168 TH/MM3 Mean Platelet Volume 8.3 FL Date/Time Procedure Status Source Growth 11/01/16 07:46 Aerobic Blood Culture - Preliminary Resulted Blood Peripheral NO GROWTH IN 2 DAYS 11/01/16 07:46 Anaerobic Blood Culture - Preliminary Resulted Blood Peripheral NO GROWTH IN 2 DAYS Vitals/IOs Vital Signs Date Time Temp Pulse Resp B/P Pulse Ox O2 Delivery O2 Flow Rate FiO2 11/03/16 08:00 98.2 85 19 167/96 98 11/02/16 19:25 Room Air 11/02/16 08:51 21 11/01/16 20:21 3.00 Intake and Output 11/02/16 11/02/16 11/03/16 08:00 16:00 00:00 Intake Total 1020 ml 480 ml 120 ml Output Total 200 ml 25 ml 1600 ml Balance 820 ml 455 ml -1480 ml Assessment & Plan Problem List: (1) Depression Assessment & Plan: Patient could be transfer to MED/psy unit once primary team determines. Continue Effexor 37.5 mg, clonazepam .05 bid, for depression and anxiety respectively. ICD Code: F32.9 Assessment & Plan Estimated LOS: days Justification for Cont. Inpt. 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
[2016-11-03] MEDS: ENOXAPARIN SODIUM 30 MG/0.3 ML SYRINGE SQ SCH (12:09)
[2016-11-03] MEDS: cefTRIAXone INJ 1,000 MG in SODIUM CHLORIDE 0.9% INJ 100 ML IV SCH (12:11)
[2016-11-03] MEDS ORDERED: CHOLECALCIFEROL (VIT D3) 1000 UNIT TAB PO SCH (14:00)
[2016-11-03] MEDS: diphenhydrAMINE HCL 25 MG CAP PO PRN ×2 (15:28→21:15)
[2016-11-03] MEDS ORDERED: FLUCONAZOLE 100 MG TAB PO ONE (17:30)
[2016-11-03] MEDS: MAGNESIUM HYDROXIDE SUSP 30 ML CUP PO PRN (18:22)
[2016-11-03] MEDS: ACETAMINOPHEN/HYDROcodone 325 MG/7.5 MG TAB PO PRN (21:16)
[2016-11-03] MEDS: MICONAZOLE NITRATE 200 MG VAG SUPP VAGINAL SCH (21:16)
[2016-11-03] MEDS ORDERED: TEMAZEPAM 15 MG CAP PO PRN (23:15)
[2016-11-04] MEDS: LEVOTHYROXINE SODIUM 112 MCG TAB PO SCH (03:22)
[2016-11-04] MEDS: ACETAMINOPHEN/HYDROcodone 325 MG/7.5 MG TAB PO PRN ×2 (03:22→08:33)
[2016-11-04 04:00] VITALS: BP 156/96; PULSE 81; RESP 18; TEMP 96.3; O2SAT 96
--- NOTE | 2016-11-04 07:16 | PD.ORT.PN ---
Subjective Subjective Remarks POD 3 s/p IMN left hip reports pain better controlled. states has not been out of bed yet Objective Vitals Vital Signs Date Time Temp Pulse Resp B/P Pulse Ox O2 Delivery O2 Flow Rate FiO2 11/04/16 04:00 96.3 81 18 156/96 96 11/03/16 23:45 98.2 81 16 184/96 93 11/03/16 20:00 78 11/03/16 19:46 97.3 76 16 162/95 95 11/03/16 16:00 98.1 70 19 138/70 97 11/03/16 15:28 89 11/03/16 14:50 99.9 78 16 157/84 99 11/03/16 12:00 97.7 72 18 142/69 97 11/03/16 10:22 94 21 11/03/16 08:00 98.2 85 19 167/96 98 I/O 11/03/16 11/03/16 11/03/16 11/04/16 11/04/16 11/04/16 07:00 15:00 23:00 07:00 15:00 23:00 Intake Total 620 ml 480 ml 480 ml 0 ml Output Total 325 ml 325 ml 650 ml Balance 295 ml 155 ml -170 ml 0 ml Intake Oral 480 ml 480 ml IV Total 0 ml Packed Cells 620 ml Output Urine Total 325 ml 325 ml 650 ml Result Diagram: 11/03/16 1100 11/03/16 1100 Imaging Last 24 hours Impressions Hip and Pelvis X-Ray 10/31/161955 Signed Impressions: Service Date/Time: Monday, October 31, 2016 20:11 - CONCLUSION: Comminuted intertrochanteric fracture of the left femur with medial angulation deformity. Estevan Reed MD Chest X-Ray 10/31/161955 Signed Impressions: Service Date/Time: Monday, October 31, 2016 20:15 - CONCLUSION: Suspected pulmonary contusion or infiltrate at left mid to lower lung. No perceptible fracture. Estevan Reed MD Objective Remarks LLE: dressing clean and dry. intact. NVI Assessment & Plan Assessment and Plan 1) Left Intertroch hip fx s/p IMN - POD 3 -WBAT -dressing changes -CM for rehab placement -DVT prophylaxis with lovenox and DC with xarelto -norco for pain control -Vit D and calcium replacement therapy -plan for DC to rehab -f/u with [facility] or [facility] in 2 weeks -ortho clear for discharge Sebas Mcclelland Nov 04, 2016 07:16
[2016-11-04 08:00] VITALS: BP 148/87; PULSE 84; RESP 18; TEMP 98.9; O2SAT 97
[2016-11-04] MEDS: SODIUM CHLORIDE 0.9% FLUSH 5 ML FLUSH IVF SCH ×2 (08:31→20:46)
[2016-11-04] MEDS: MAGNESIUM HYDROXIDE SUSP 30 ML CUP PO PRN (08:31)
[2016-11-04] MEDS: CALCIUM/VITAMIN D 250 MG/125 U TAB PO SCH ×3 (08:32→18:26)
[2016-11-04] MEDS: diphenhydrAMINE HCL 25 MG CAP PO PRN ×3 (08:32→18:27)
[2016-11-04] MEDS: clonazePAM 0.5 MG TAB PO SCH ×2 (08:32→20:44)
[2016-11-04] MEDS: DOCUSATE SODIUM 100 MG CAP PO SCH ×2 (08:32→20:44)
[2016-11-04] MEDS: CHOLECALCIFEROL (VIT D3) 5000 UNIT CAP PO SCH (08:34)
[2016-11-04] MEDS: METOPROLOL TARTRATE 25 MG TAB PO SCH (08:34)
[2016-11-04] MEDS: PANTOPRAZOLE SOD 40 MG DELAYED RELEASE TAB PO SCH (08:34)
[2016-11-04 08:45] VITALS: PULSE 76
[2016-11-04] MEDS: LACTATED RINGER'S 1000 ML INJ 1,000 ML IV SCH ×2 (11:45→20:46)
[2016-11-04 12:00] VITALS: BP 152/81; PULSE 72; RESP 18; TEMP 100.5; O2SAT 96
[2016-11-04] MEDS: ENOXAPARIN SODIUM 30 MG/0.3 ML SYRINGE SQ SCH (12:29)
[2016-11-04] MEDS: cefTRIAXone INJ 1,000 MG in SODIUM CHLORIDE 0.9% INJ 100 ML IV SCH (12:30)
[2016-11-04] MEDS: ACETAMINOPHEN/HYDROcodone 325 MG/10 MG TAB PO PRN ×2 (12:30→18:27)
--- NOTE | 2016-11-04 14:55 | HHI.PR ---
Subjective Subjective Remarks Resting in bed awake, responds to verbal stimuli Conversational today, cough, green sputum, sinus neice in rm, low grade fever (Yin Garcia) Review of Systems Constitutional Constitutional: Fever (low-grade), Weakness (generalized) (Yin Garcia) Pulmonary Respiratory: Coughing Pulmonary Remarks History of sinus infections, cough and sinus drainage green since about 04 100 this a.m. (Yin Garcia) GI/Abdomen GI/Abdomen Remarks Rule out possible GI bleed (Yin Garcia) Musculoskeletal MS: Weakness, Stiffness, Discomfort/Pain (postop) MS Remarks Status post left hip repair (Yin Garcia) Integumentary Skin: Wounds (left hip clean incision, dressing clean dry and intact) (Yin Garcia) Neurologic Neurologic Remarks Alert cooperative today (Yin Garcia) Psychiatric Psychiatric: Agitation (at times), Anxiety Psychiatric Remarks Suicidal, Vann act ETOH abuse/hold (Yin Garcia) Vitals/Results Intake & Output 11/03/16 11/03/16 11/04/16 15:00 23:00 07:00 Intake Total 480 ml 480 ml 0 ml Output Total 325 ml 650 ml Balance 155 ml -170 ml 0 ml Intake Oral 480 ml 480 ml IV Total 0 ml Output Urine Total 325 ml 650 ml Vital Signs Vital Signs Date Time Temp Pulse Resp B/P Pulse Ox O2 Delivery O2 Flow Rate FiO2 11/04/16 12:00 100.5 72 18 152/81 96 11/04/16 08:45 76 11/04/16 08:00 98.9 84 18 148/87 97 11/04/16 06:50 Room Air 11/04/16 04:00 96.3 81 18 156/96 96 11/03/16 23:45 98.2 81 16 184/96 93 11/03/16 20:00 78 11/03/16 19:46 97.3 76 16 162/95 95 11/03/16 16:00 98.1 70 19 138/70 97 11/03/16 15:28 89 11/03/16 14:50 99.9 78 16 157/84 99 (Yin Garcia) CBC/BMP: 11/03/16 1100 11/03/16 1100 Imaging Remarks Last Impressions Hip X-Ray 11/01/16 0000 Signed Impressions: Service Date/Time: Tuesday, November 01, 2016 13:48 - CONCLUSION: Fluoroscopic images during placement of compression nial/tulio left hip/proximal femur. Mohinder Apodaca MD Hip and Pelvis X-Ray 10/31/161955 Signed Impressions: Service Date/Time: Monday, October 31, 2016 20:11 - CONCLUSION: Comminuted intertrochanteric fracture of the left femur with medial angulation deformity. Estevan Reed MD Chest X-Ray 10/31/161955 Signed Impressions: Service Date/Time: Monday, October 31, 2016 20:15 - CONCLUSION: Suspected pulmonary contusion or infiltrate at left mid to lower lung. No perceptible fracture. Estevan Reed MD Current Medications Active Medications Fluconazole (Diflucan) 150 mg ONCE ONCE PO Last administered on 11/03/16 18:22 ; Admin Dose 150 MG; Start 11/03/16 at 17:30; Stop 11/03/16 at 17:31; Status DC Miconazole Nitrate (Monistat 3 Vag Supp) 200 mg HS VAGINAL Last administered on 11/03/16 21:16; Admin Dose 200 MG; Start 11/03/16 at 21:00; Stop 11/08/16 at 23: 00 Temazepam (Restoril) 15 mg HS PRN PO; Start 11/03/16 at 23:15 (Yin Garcia) Physical Exam General General Appearance: Pale, Anxious (Yin Garcia) Eyes Eye Exam: Pupils Equal, Pupils Reactive (Yin Garcia) Ears & Nose Ears & Nose Exam: Nasal Mucosa [place] (pale) (Yin Garcia) Throat Throat Exam: Oral Mucosa [place] & Moist (pale) (Yin Garcia) Neck Neck Exam: Neck Supple (Yin Garcia) Pulmonary Resp Exam: Clear Bilaterally (low volumes), Breath Sounds Equal, Rhonchi Resp Remarks Low-grade fever, new-onset green sputum (Radha,Yin M. KIDS ACTIVITIES COACH) Cardiology CV Exam: Regular (Cedar CrestYin M. [employer] ACTIVITIES COACH) Gastrointestinal/Abdomen GI Exam: Soft, Non-Tender, Bowel Sounds Present ([place],Yin M. [employer] ACTIVIT[employer] COACH) Genitourinary Remarks Catheter DC'd (Cedar CrestYin M. K[employer] ACTIVITIES COACH) Musculoskeletal MS Exam: Atrophy MS Remarks Incision line, covered with dressing clean dry and intact ([place],Yin M. K[employer] ACTIVITIES COACH ) Integumentary Skin Exam: Warm, Dry (Cedar CrestYin M. KIDS ACTIVITIES COACH) Extremeties Extremities Exam: No Edema (Cedar CrestYin M. KIDS ACTIVITIES COACH) Neurologic Neuro Exam: Sedated (but does respond to verbal stimuli) Neuro Remarks Tearful (RadhaYin M. KIDS ACTIVITIES COACH) VTE Prophylaxis VTE Prophylaxis Device: SCDs (RadhaYin M. KIDS ACTIVITIES COACH) Assessment/Plan Assessment/Plan (1) Closed left hip fracture (2) Suicidal ideation (3) Depression, major, (4) ETOH abuse (5) Anxiety (6) History of atrial fibrillation (7) Hypothyroid (8) Fever (9) Tachycardia 10, anemia severe sinusitis Acute left femur fracture POD 3 s/p IMN left hip / -Orthopedic postop and pain management per orthopedic SCD, physical therapy eval and treat. OT eval and treat Anemia, post op -HH 12 to hgb 7.6, Transfused 3/8 CBC now 10.1 Awaiting Hemoccult stool. Reordered today eval anxiety vs ETOH withdrawal. Ativan when necessary Suicidal ideation, sitter in , currently on Vann Act., Psych consultation for major depression. Appreciate plan. discussed any family visited, niece here, Yelena Merritt, contact number [place] [facility] [place] [phone] Will need case management involvement as well as discharge planning. Patient has been accepted to medical psych unit. Waiting on Hemoccult stool sample before transfer. If negative patient possibly could go this p.m. Patient is also being evaluated by [facility], after med psych unit care. Patient's hopes and plans are to go home when she is able. History of paroxysmal A. fib, stable -Continuous cardiac telemetry Lovenox low dose/SCD for DVT prophylaxis BMP, CBC ordered , will eval today low grade fever 0400 had large amount of green sputum expelled, hx of sinusitis allergy to sulfa. Start amoxicillin PO, CBC am D/W Dr. Alba, seen on his behalf discussed with sitter and niece and patient (Yin Garcia) Assessment/Plan seen and examined by myself,Dr Alba , on 11/04/16 Waiting for Hemoccult stool If negative, discharge to psychiatry If positive , consult GI Discussed with mid-level practitioner The exam, history, and the medical decision-making described in the above note were completed with the assistance of the mid-level provider. I reviewed the findings presented. I attest that I had a [id number] encounter with the patient on the same day, and personally performed and documented my assessment and findings in the medical record (Linda Alba MD) Yin Garcia Nov 04, 2016 14:54 Linda Alba MD Nov 05, 2016 14:13
[2016-11-04] MEDS ORDERED: MAGNESIUM CITRATE SOLN 300 ML BTL PO ONE (15:15)
[2016-11-04 16:00] VITALS: BP 153/83; PULSE 77; RESP 18; TEMP 95.5; O2SAT 99
[2016-11-04 19:15] LABS: BICARBONATE 30.9 MEQ/L (21.0-32.0); POTASSIUM 4.1 MEQ/L (3.5-5.1)
[2016-11-04 20:30] VITALS: BP 165/80; PULSE 79; RESP 17; TEMP 98.4; O2SAT 96
[2016-11-04] MEDS: AMOXICILLIN (TRIHYDRATE) 500 MG CAP PO SCH (20:44)
[2016-11-04] MEDS: MICONAZOLE NITRATE 200 MG VAG SUPP VAGINAL SCH (20:44)
[2016-11-05 00:40] VITALS: BP 169/89; PULSE 78; RESP 18; TEMP 98.5; O2SAT 95
[2016-11-05] MEDS: diphenhydrAMINE HCL 25 MG CAP PO PRN ×2 (01:08→05:17)
[2016-11-05] MEDS: ACETAMINOPHEN/HYDROcodone 325 MG/10 MG TAB PO PRN ×5 (01:08→17:43)
[2016-11-05 04:15] VITALS: BP 155/88; PULSE 86; RESP 19; TEMP 97.5; O2SAT 95
[2016-11-05] MEDS: LEVOTHYROXINE SODIUM 112 MCG TAB PO SCH (04:26)
[2016-11-05 05:38] LABS: MEAN CORPUSCULAR HEMOGLOBIN 32.6 PG (27.0-34.0); MEAN CORPUSCULAR HGB CONC 34.3 % (32.0-36.0); PLATELET COUNT 226 TH/MM3 (150-450); RED BLOOD COUNT 3.06 MIL/MM3 (4.00-5.30); RED CELL DISTRIBUTION WIDTH 15.7 % (11.6-17.2); REVIEW FLAG FINAL; WHITE BLOOD COUNT 9.4 TH/MM3 (4.0-11.0)
[2016-11-05 08:00] VITALS: BP 158/87; PULSE 86; RESP 17; TEMP 98.7; O2SAT 95
[2016-11-05] MEDS: CALCIUM/VITAMIN D 250 MG/125 U TAB PO SCH ×3 (08:22→17:42)
[2016-11-05] MEDS: clonazePAM 0.5 MG TAB PO SCH (08:22)
[2016-11-05] MEDS: PANTOPRAZOLE SOD 40 MG DELAYED RELEASE TAB PO SCH (08:22)
[2016-11-05] MEDS: DOCUSATE SODIUM 100 MG CAP PO SCH (08:22)
[2016-11-05] MEDS: AMOXICILLIN (TRIHYDRATE) 500 MG CAP PO SCH (08:22)
[2016-11-05] MEDS: CHOLECALCIFEROL (VIT D3) 5000 UNIT CAP PO SCH (08:23)
[2016-11-05] MEDS: METOPROLOL TARTRATE 25 MG TAB PO SCH (08:23)
[2016-11-05] MEDS: SODIUM CHLORIDE 0.9% FLUSH 5 ML FLUSH IVF SCH (08:23)
[2016-11-05] MEDS: cefTRIAXone INJ 1,000 MG in SODIUM CHLORIDE 0.9% INJ 100 ML IV SCH (10:00)
[2016-11-05] MEDS: LACTATED RINGER'S 1000 ML INJ 1,000 ML IV SCH (11:03)
--- NOTE | 2016-11-05 11:05 | HHI.PR ---
Subjective Subjective Remarks Resting in bed awake, responds to verbal stimuli, short term memory loss Conversational today, sitter in rm, color pink (Yin Garcia) Review of Systems Constitutional Constitutional: Fever (low-grade), Weakness (generalized) (Yin Garcia) Pulmonary Respiratory: Coughing Pulmonary Remarks History of sinus infections, cough and sinus drainage green since about 04 100 this a.m. (Yin Garcia) GI/Abdomen GI/Abdomen Remarks Rule out possible GI bleed (Yin Garcia) Musculoskeletal MS: Weakness, Stiffness, Discomfort/Pain (postop) MS Remarks Status post left hip repair, small amout of blood on dressing (Yin Garcia) Integumentary Skin: Wounds (left hip clean incision, dressing clean dry and intact) (Yin Garcia) Neurologic Neurologic Remarks Alert cooperative today (Yin Garcia) Psychiatric Psychiatric: Agitation (at times), Anxiety Psychiatric Remarks Suicidal, Vann act ETOH abuse/hold (Yin Garcia) Vitals/Results Intake & Output 11/04/16 11/04/16 11/05/16 15:00 23:00 07:00 Intake Total 840 ml 120 ml Output Total 750 ml Balance 90 ml 120 ml Intake Oral 840 ml 120 ml Output Urine Total 750 ml # Voids 0 1 # Bowel Movements 2 1 Vital Signs Vital Signs Date Time Temp Pulse Resp B/P Pulse Ox O2 Delivery O2 Flow Rate FiO2 11/05/16 08:00 98.7 86 17 158/87 95 11/05/16 05:56 18 11/05/16 04:15 97.5 86 19 155/88 95 11/05/16 00:40 98.5 78 18 169/89 95 11/04/16 20:30 Room Air 11/04/16 20:30 98.4 79 17 165/80 96 11/04/16 16:00 95.5 77 18 153/83 99 11/04/16 12:00 100.5 72 18 152/81 96 (Yin Garcia) CBC/BMP: 11/05/16 0502 11/04/16 1844 Lab Results Laboratory Tests Test 11/04/16 11/05/16 18:44 05:02 Sodium Level 136 MEQ/L Potassium Level 4.1 MEQ/L Chloride Level 97 MEQ/L Carbon Dioxide Level 30.9 MEQ/L Anion Gap 8 MEQ/L Blood Urea Nitrogen 14 MG/DL Creatinine 0.91 MG/DL Estimat Glomerular Filtration 61 ML/MIN Rate Random Glucose 96 MG/DL Calcium Level 8.7 MG/DL White Blood Count 9.4 TH/MM3 Red Blood Count 3.06 MIL/MM3 Hemoglobin 10.0 GM/DL Hematocrit 29.0 % Mean Corpuscular Volume 95.0 FL Mean Corpuscular Hemoglobin 32.6 PG Mean Corpuscular Hemoglobin 34.3 % Concent Red Cell Distribution Width 15.7 % Platelet Count 226 TH/MM3 Mean Platelet Volume 8.1 FL Microbiology Microbiology 11/04/16 Stool Occult Blood (NING) - Final, Complete HEMOCCULT NEGATIVE Current Medications Active Medications Amoxicillin (Trimox) 500 mg BID PO Last administered on 11/05/16 08:22; Admin Dose 500 MG; Start 11/04/16 at 21:00 Magnesium Citrate (Citroma Liq) 300 ml NOW ONCE PO Last administered on 15:24; Admin Dose 300 ML; Start 11/04/16 at 15:15; Stop 11/04/16 at 15:16; Status DC (Yin Garcia) Physical Exam General General Appearance: Pale, Anxious (Yin Garcia) Eyes Eye Exam: Pupils Equal, Pupils Reactive (Yin Garcia) Ears & Nose Ears & Nose Exam: Nasal Mucosa [place] (pale) (Yin Garcia) Throat Throat Exam: Oral Mucosa [place] & Moist (pale) (Yin Garcia) Neck Neck Exam: Neck Supple (Yin Garcia) Pulmonary Resp Exam: Clear Bilaterally (low volumes), Breath Sounds Equal, Rhonchi Resp Remarks Low-grade fever, new-onset green sputum (Yin Garcia) Cardiology CV Exam: Regular (Yin Garcia) Gastrointestinal/Abdomen GI Exam: Soft, Non-Tender, Bowel Sounds Present (Yin Garcia) Genitourinary Remarks Catheter DC'd (Yin Garcia) Musculoskeletal MS Exam: Atrophy MS Remarks Incision line, covered with dressing clean dry and intact (Yin Garcia ) Integumentary Skin Exam: Warm, Dry (Yin Garcia) Extremeties Extremities Exam: No Edema (Yin Garcia) Neurologic Neuro Exam: Sedated (but does respond to verbal stimuli) Neuro Remarks Tearful (Yin Garcia) VTE Prophylaxis VTE Prophylaxis Device: SCDs (Yin Garcia) Assessment/Plan Assessment/Plan (1) Closed left hip fracture (2) Suicidal ideation (3) Depression, major, (4) ETOH abuse (5) Anxiety (6) History of atrial fibrillation (7) Hypothyroid (8) Fever (9) Tachycardia 10, anemia severe sinusitis Acute left femur fracture POD 3 s/p IMN left hip 11/01 -Orthopedic postop and pain management per orthopedic SCD, physical therapy eval and treat. OT eval and treat Anemia, post op -HH 12 to hgb 7.6, Transfused 11/02 CBC now 10.0 Awaiting Hemoccult stool. eval anxiety vs ETOH withdrawal. Ativan when necessary Suicidal ideation, sitter in , Psych consultation for major depression. Appreciate plan. discussed any family visited, niece here, Yelena Merritt, contact number Daughter lives in [facility] [address] telephone number [phone] case management involvement as well as discharge planning. Patient has been accepted to medical psych unit pending stool sample. Discussed with nurse today. Patient is also being evaluated by [facility], after med psych unit care. Patient's hopes and plans are to go home when she is able. History of paroxysmal A. fib, stable -Continuous cardiac telemetry Lovenox low dose/SCD for DVT prophylaxix Hgb stable at 10.0 low grade fever yesterday, afebrile today. No further sputum production 0400 had large amount of green sputum expelled, hx of sinusitis allergy to sulfa. Start amoxicillin PO, CBC am D/W Dr. Low, seen on her behalf discussed with sitter and patient (Yin Garcia) Assessment/Plan Patient seen and examined today. Hemoccult negative. No further drop in H/H. Ok to be dced to psych facility. PT/OT, activity per Ortho. follow-up with ortho in 2 weeks. (Bre Low MD) Yin Garcia Nov 05, 2016 11:05 Bre Low MD Nov 05, 2016 13:45
[2016-11-05 12:00] VITALS: BP 156/86; PULSE 70; RESP 17; TEMP 99.5; O2SAT 96
[2016-11-05] MEDS ORDERED: AMOX500C PO (13:51)
[2016-11-05] MEDS: ENOXAPARIN SODIUM 30 MG/0.3 ML SYRINGE SQ SCH (14:09)
[2016-11-05 16:00] VITALS: BP 150/77; PULSE 76; RESP 17; TEMP 98.1; O2SAT 98
[2016-11-16] MEDS ORDERED: COMMODE 3-IN-11 MIS (15:54)
[2016-11-16] MEDS ORDERED: WHEEMIS3 (15:54)
[2016-11-21] MEDS ORDERED: VENL75XR PO (08:58)
[2016-11-21] MEDS ORDERED: CHOL5000 PO (08:58)
[2016-11-21] MEDS ORDERED: DOCU1CAP39 PO (08:58)
[2016-11-21] MEDS ORDERED: APIX5TAB PO (08:58)
[2016-11-21] MEDS ORDERED: HYDR-3366 PO (08:58)
[2016-11-21] MEDS ORDERED: METO25TA3 PO (08:58)
[2016-11-21] MEDS ORDERED: AMLO5 PO (08:58)
[2016-11-21] MEDS ORDERED: OYST250T4 PO (08:58)
[2016-11-21] MEDS ORDERED: CLON1 PO (08:58)
[2016-11-21] MEDS ORDERED: NEXI40CA PO (08:58)
[2016-11-21] MEDS ORDERED: THERTAB15 PO (08:58)
[2016-11-21] MEDS ORDERED: VITA100T2 PO (08:58)
[2016-11-21] MEDS ORDERED: LEVO-168 PO (08:58)
--- NOTE | 2016-12-28 08:40 | MD ---
ADMISSION DATE: 10/31/2016 DISCHARGE DATE: 11/05/[address] Bre Low. CONSULTATIONS REQUESTED Orthopedics, Dr. Arden Hernandez. Psychiatric, Dr. Byron Bailey. PROCEDURES X-ray of the left hip and pelvis on 10/31/2016, shows comminuted intertrochanteric fracture of the left femur with medial angulation deformity. Chest x-ray on 10/31/2016, shows suspected pulmonary contusion or infiltrate at left mid to lower lung. Hip x-ray left on 11/01/2016, shows fluoroscopic images during placement of compression nail/tulio left hip/proximal femur. 12-lead EKG on 10/31/2016, shows sinus rhythm with sinus arrhythmia. The patient underwent left hip reduction and intramedullary nail fixation on 11/01/2016. ADMITTING DIAGNOSIS 1. Closed left hip fracture. 2. Suicidal ideation. 3. Depression. 4. Ethyl alcohol abuse. 5. Anxiety. 6. History of atrial fibrillation. 7. Hypothyroidism. 8. Fever. 9. Tachycardia. DISCHARGE DIAGNOSIS 1. Closed left hip fracture, status post left hip reduction and intramedullary nail fixation. 2. Anemia. 3. Fever. 4. Tachycardia. 5. Sinusitis. 6. Suicidal ideation. 7. Major depression. 8. Ethyl alcohol abuse. 9. Anxiety. 10. History of atrial fibrillation. 11. Hypothyroidism. HOSPITAL COURSE The patient is a 71-year-old female with significant past medical history of TIA, atrial fibrillation, alcohol abuse, hypertension and hypothyroidism, who was brought to the ER on 10/31/2016 with suicidal ideation. The patient was admitted to the [facility] where she was awaiting placement in the main psychiatric unit, apparently she fell backwards injuring her left hip. She was examined and noted with shortening of the left leg with external rotation. Xrya showed intertrochanteric fracture of left femur. As the patient has comminuted intertrochanteric fracture of the left femur with medial angulation deformity, orthopedic consult was requested and the patient underwent left hip reduction and intramedullary nail fixation on 11/01/2016. For her fever and tachycardia the patient was started on IV fluids, blood cultures were obtained and she was started on Rocephin. For patient's ethyl alcohol abuse a CIWAprotocol was started and the patient was monitored carefully for withdrawal symptoms. A psyche consult was requested because of her suicidal ideation. For her paroxysmal atrial fibrillation continuous cardiac telemetry was done and anticoagulation was resumed after the surgical procedure, after discussing with the orthopedic physician. She was continued on beta-alex. The patient was started on Lovenox for DVT prophylaxis after the surgical procedure, Dillon was given for pain control and physical therapy was initiated on 11/02/2016. As the patient was complaining of sinus infection she was started on Amoxicillin. On 11/05/2016 her hemoglobin was 10, hematocrit was 29, BUN was 14, creatinine was 0.91, potassium was 4.1. Blood pressure was 158/87, respirations 17, temperature was 98.7, pulse ox was 95. It was postop day three. Ortho recommended discharge of the patient to [facility] after psych clearance. After discussing with psych as patient was clinically, hemodynamically and psychologically stable she was discharged to [facility]. DISCHARGE CONDITION Stable. DISCHARGE DISPOSITION To [facility]. DISCHARGE MEDICATIONS Amoxicillin 500 mg p.o. b.i.d. Magnesium citrate. Xarelto. Lortab as per the instructions of the orthopedic physician. DISCHARGE FOLLOWUP Followup with Dr. Arden Hernandez in two weeks. Bre Low MD [facility]ITAL[facility]achary
== END 2016-11-05 18:37 | DRG 956 ==
LOC: NEPJ 10:37 → NEDA 20:46 → N06A 23:32 → H4EA 11-05 18:17 → N06A 11-05 18:34
PROVIDERS: ADMIT Specialist; ATTEND Specialist
PROC: 0QS706Z Reposition Left Upper Femur with Intramedullary Internal Fixation Device, Open Approach (ICD-10-PCS; principal; 2016-11-01 13:02)
PROC: 30233N1 Transfusion of Nonautologous Red Blood Cells into Peripheral Vein, Percutaneous Approach (ICD-10-PCS; 2016-11-02)
DX: S72.142A Displaced intertrochanteric fracture of left femur, initial encounter for closed fracture (principal); S27.329A Contusion of lung, unspecified, initial encounter; R45.851 Suicidal ideations; F33.2 Major depressive disorder, recurrent severe without psychotic features; K86.1 Other chronic pancreatitis; E55.9 Vitamin D deficiency, unspecified; F10.239 Alcohol dependence with withdrawal, unspecified; I48.0 Paroxysmal atrial fibrillation; E03.9 Hypothyroidism, unspecified; I10 Essential (primary) hypertension; R00.0 Tachycardia, unspecified; D64.9 Anemia, unspecified; I25.10 Atherosclerotic heart disease of native coronary artery without angina pectoris; H91.90 Unspecified hearing loss, unspecified ear; K21.9 Gastro-esophageal reflux disease without esophagitis; R50.9 Fever, unspecified; L29.2 Pruritus vulvae; J32.9 Chronic sinusitis, unspecified; M19.90 Unspecified osteoarthritis, unspecified site; F41.9 Anxiety disorder, unspecified; Y04.8XXA Assault by other bodily force, initial encounter; Y04.2XXA Assault by strike against or bumped into by another person, initial encounter; Y90.0 Blood alcohol level of less than 20 mg/100 ml; Y92.238 Other place in hospital as the place of occurrence of the external cause; Z79.01 Long term (current) use of anticoagulants; Z85.3 Personal history of malignant neoplasm of breast; Z86.73 Personal history of transient ischemic attack (TIA), and cerebral infarction without residual deficits; Z87.891 Personal history of nicotine dependence; Z88.2 Allergy status to sulfonamides; Z88.5 Allergy status to narcotic agent
CPT/HCPCS: 36430; 71010; 73502; 76000; 80048; 80053; 80307; 81001; 82272; 82306; 82550; 82552; 83605; 84484; 85014; 85018; 85025; 85027; 85610; 85730; 86850; 86900; 86901; 86920; 87040; 93005; 96374; C1713; J0131; J0690; J0696; J1170; J1200; J1580; J1650; J1940; J2060; J2250; J2270; J2405; J3010; J3370; J7050; J7120; P9016

== ENCOUNTER 2016-11-05 18:00 | Inpatient (IN) | payer MEDICARE, BC ==
[~2016-11-05 18:00] MED LIST changes: +AMOX500C PO; +CHOL5000 PO; +DRIS50002 PO; -FOLI1TAB4 PO; +HYDR-3366 PO; +OYST250T4 PO; -THIA100T PO; +WALKER/ADULT/FO1 MIS
[2016-11-05] MEDS: AMOXICILLIN (TRIHYDRATE) 500 MG CAP PO SCH (20:53)
[2016-11-05] MEDS: ACETAMINOPHEN/HYDROcodone 325 MG/10 MG TAB PO PRN (20:53)
[2016-11-05] MEDS: clonazePAM 0.5 MG TAB PO SCH (20:54)
[2016-11-05] MEDS ORDERED: PILL SPLITTER OTHER PRN (21:00)
[2016-11-05] MEDS: APIXABAN 5 MG TABLET PO SCH (21:00)
[2016-11-05 22:39] VITALS: BP 166/80; PULSE 78; RESP 18; TEMP 99; O2SAT 97
[2016-11-05] MEDS ORDERED: diphenhydrAMINE HCL 50 MG/ML VIAL IM PRN (23:15)
[2016-11-05] MEDS ORDERED: MAGNESIUM HYDROXIDE SUSP 30 ML CUP PO PRN (23:15)
[2016-11-05] MEDS ORDERED: LORazepam 2 MG/ML VIAL IM PRN (23:15)
[2016-11-05] MEDS ORDERED: ALUMINUM/MAGNESIUM/SIMETH 30 ML CUP PO PRN (23:15)
[2016-11-06] MEDS: LORazepam 1 MG TAB PO PRN ×2 (00:04→08:41)
[2016-11-06] MEDS: ACETAMINOPHEN/HYDROcodone 325 MG/10 MG TAB PO PRN ×4 (01:50→17:50)
[2016-11-06 05:54] VITALS: BP 163/78; PULSE 82; RESP 16; TEMP 98.3; O2SAT 95
[2016-11-06] MEDS: LEVOTHYROXINE SODIUM 112 MCG TAB PO SCH (06:08)
[2016-11-06] MEDS: diphenhydrAMINE HCL 50 MG CAP PO PRN ×2 (08:41→21:40)
[2016-11-06] MEDS: METOPROLOL TARTRATE 25 MG TAB PO SCH (08:42)
[2016-11-06] MEDS: VENLAFAXINE HCL XR 37.5 MG CAP PO SCH (08:42)
[2016-11-06] MEDS: AMOXICILLIN (TRIHYDRATE) 500 MG CAP PO SCH (08:42)
[2016-11-06] MEDS: PANTOPRAZOLE SOD 40 MG DELAYED RELEASE TAB PO SCH (08:42)
[2016-11-06] MEDS: CHOLECALCIFEROL (VIT D3) 5000 UNIT CAP PO SCH (08:42)
[2016-11-06] MEDS: APIXABAN 5 MG TABLET PO SCH ×2 (08:43→20:30)
[2016-11-06] MEDS: clonazePAM 0.5 MG TAB PO SCH ×4 (08:50→20:30)
[2016-11-06] MEDS: CALCIUM/VITAMIN D 250 MG/125 U TAB PO SCH ×3 (09:00→17:50)
--- NOTE | 2016-11-06 10:38 | HHI.HP ---
Provisional Diagnosis Admission Date Nov 05, 2016 at 18:38 [place] I. 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 No diagnosis Binford III. Please see the LMD's report history of hypertension hypothyroidism Binford IV. Moderate stress difficulty coping recent of her Binford V. GAF of 45. Certification of Person's Competence To Provide Express and Informed Consent I have personally examined Sita Harvey , a person being served at [facility] on, Nov 06, 2016 10:32. Express and informed consent means consent voluntarily given in writing, by a competent person, after sufficient explanation and disclosure of the subject matter involved to enable the person to make a knowing and willful decision without any element of force, fraud, deceit, duress, or other form of constraint or coercion. This person is 18 years of age or older, is not now known to be incompetent to consent to treatment with a guardian advocate, and does not have a health care surrogate or proxy currently making medical treatment decisions. I have found this person to be one of the following: [x] Competent to provide express and informed consent, as defined above, for voluntary admission to this facility and is competent to provide express and informed consent for treatment. He/she has the consistent capacity to make well reasoned, willful, and knowing decisions concerning his or her medical or mental health treatment. The person fully and consistently understands the purpose of the admission for examination/placement and is fully capable of personally exercising all rights assured [place] [] Incompetent to provide express and informed consent to voluntary admission, and this is incompetent to provide express and informed consent to treatment. The person must be transferred to involuntary status and a petition for a guardian advocate filed with the Circuit Court. [] Refusing to provide express and informed consent to voluntary admission but is competent to provide express and informed consent for treatment. The person must be discharged or transferred to involuntary status. Form shall be completed within 24 hours of a person's arrival at the receiving facility and filed in the clinical record of each person: 1. Admitted on a voluntary basis 2. Permitted to provide express and informed consent to his/her own treatment 3. Allowed to transfer from involuntary to voluntary status 4. Prior to permitting a person to consent to his or her own treatment after having been previously found incompetent to consent to treatment. History of Present Illness Capacity: Has Capacity HPI This is a 71-year-old female who was admitted on a med psych unit after she was medically stabilized. Patient has been following up by Dr. Conner please see Dr. Conner is initial consult report for detail. Patient claimed that since she has lost her 4 months ago she has been feeling depressed. At the present time she denies any suicidal ideation intentions or plan. She denied any auditory or visual hallucinations. No behavior or management problem reported. She has not been able to do much because of her fracture of the hip and she is working on getting better and stronger. She also has some pain Review of Systems Except as stated in HPI: all other systems reviewed are Neg Musculoskeletal: COMPLAINS OF: Joint pain, Muscle aches Psychiatric: COMPLAINS OF: Mood changes, Depression Past Psych History Psychological trauma history Patient denied any history of physical verbal or sexual abuse growing up Violence risk - others (6 mos) Denies Violence risk - self (6 mos) Patient has been feeling more depressed since the loss of her but denies any suicidal ideation intentions or plan at this time Substance Abuse History Drugs/Alcohol past 12 months Patient denied Past Family Social History Coded Allergies: Sulfa (Verified Allergy, Intermediate, rash, 10/21/16) Active Scripts Amoxicillin 500 Mg [id number] Mg PO BID 7 Days Ref 0 Prov:Bre Low MD 11/05/16 Hydrocodone-Acetaminophen ([place])10-325 Mg Tab1 Tab PO Q4H PRN (PAIN) #60 TAB Ref 0 Prov:BETITO RODRÍGUEZ PA-C 11/02/16 Ergocalciferol (Drisdol)50,000 Unit Cap50,000 Units PO ONCE #7 CAP Prov:BETITO RODRÍGUEZ PA-C 11/01/16 Cholecalciferol (Vitamin D3)5,000 Unit Cap5,000 Units PO DAILY #60 CAP Prov:BETITO RODRÍGUEZ PA-C 11/01/16 Calcium Carbonate-Cholecalciferol (Oyster Shell Calcium/Vitamin D)250-125 Mg- Unit [id number] Mg PO TID #90 TAB Prov:BETITO RODRÍGUEZ PA-C 11/01/16 Walker/Adult/Folding 1 Mis Mis #1 EA .ROUTE DIRECTED Ref 0 Prov:BETITO RODRÍGUEZ PA-C 11/01/16 Apixaban (Eliquis)5 Mg Tab5 Mg PO BID #60 TAB Ref 1 Prov:Tita Ramsey PATIENT ADMITTING CLERK 09/05/16 Reported Medications Levothyroxine 112 Mcg [id number] Mcg PO DAILY #30 TAB Ref 0 10/08/16 Metoprolol Tartrate 25 Mg Tab12.5 Mg PO DAILY #60 TAB Ref 0 10/08/[address] (Nexium)40 Mg Capdr40 Mg PO DAILY Ref 0 10/08/16 Discontinued Scripts Folic Acid (Folate)1 Mg Tab1 Mg PO DAILY 30 Days Ref 0 Prov:Cesar Cintron MD 10/19/16 Thiamine 100 Mg [id number] Mg PO DAILY 30 Days Ref 0 Prov:Cesar Cintron MD 10/19/16 Current Medications Medications (Trade) Dose Ordered Sig/Veronica Route Start Time Stop Time Status Last Admin (Trimox) 500 mg BID PO 11/05/16 21:00 11/12/16 09:01 11/06/16 08:42 (Oscal-D 250-125) 250 mg TID PO 11/06/16 09:00 ([place] 10-325 Mg) 1 tab Q4H PRN PO 11/05/16 20:15 11/06/16 06:08 (Vitamin D3) 5,000 units DAILY PO 11/06/16 09:00 11/06/16 08:42 (Drisdol) 50,000 units ONCE ONCE PO 11/10/16 09:00 11/10/16 09:01 (Effexor Xr) 37.5 mg DAILY PO 11/06/16 09:00 11/06/16 08:42 (KlonoPIN) 0.5 mg BID PO 11/05/16 21:00 11/05/16 20:54 (Eliquis) 5 mg BID PO 11/05/16 21:00 11/06/16 08:43 (Protonix) 40 mg DAILY PO 11/06/16 09:00 11/06/16 08:42 (Synthroid) 112 mcg DAILY@06 PO 11/06/16 06:00 11/06/16 06:08 (Lopressor) 12.5 mg DAILY PO 11/06/16 09:00 11/06/16 08:42 (Pill Splitter) 1 ea UNSCH PRN OTHER 11/05/16 21:00 (Ativan) 1 mg Q6H PRN PO 11/05/16 23:15 11/06/16 08:41 (Ativan Inj) 1 mg Q6H PRN IM 11/05/16 23:15 (Benadryl) 50 mg Q6H PRN PO 11/05/16 23:15 11/06/16 08:41 (Benadryl Inj) 50 mg Q6H PRN IM 11/05/16 23:15 (Tylenol) 650 mg Q4H PRN PO 11/05/16 23:15 (Milk Of Magnesia Liq) 30 ml DAILY PRN PO 11/05/16 23:15 (Mag-Al Plus Susp Liq) 30 ml Q6H PRN PO 11/05/16 23:15 Family History Negative for any emotional difficulty nervous breakdown suicide attempt Social History Patient was born and raised in [place]. She has been living in [place] for about 10 years. Her 4 months ago of cancer. She has 2 children. Highest level of education is college Patient's Strengths (min. 2) Cooperative and willing to take the medication Physical Exam Please see the LMD's note for detail patient complains of pain in her hip her vital signs are stable Vital Signs Vital Signs Date Time Temp Pulse Resp B/P Pulse Ox O2 Delivery O2 Flow Rate FiO2 11/06/16 05:54 98.3 82 16 163/78 95 Mental Status Examination This is a 71-year-old white female who looks about the same as her stated age was alert oriented 3 cooperative casually dressed her speech was slow without any evidence of loose associations or flights of ideas or pressure speech her mood was described as feeling sad depressed frustrated but wants to go home soon her affect was restricted and tearful denied any suicidal ideation intentions or plan her thoughts are organized denied any auditory or visual hallucinations or any paranoia at this time she seems to be of average intelligence with fairly good memory for her age. Insight is fair and her judgment seems to be okay on hypothetical situation Previous Suicide Attempts: Yes Previous Homicide Attempts: No Assessment & Plan Problem List: (1) Depression ICD Code: F32.9 Assessment & Plan Estimated LOS:5 days. This is a 71-year-old white female was admitted for treatment of depression following the loss of her will stabilize her on the medication. She also has a fracture of the hip. Admit to observe evaluate and treat. Patient will participate in some of the therapeutic activity on the floor. Continue with the same antidepressant. Request social media campaign manager to assist in aftercare and discharge planning. Side effect another alternative treatment were explained to the patient. Vital signs every shift. Request HC Surrog/Guard Advoc?: No Problem Qualifiers (1) Depression: Nicola Brooks MD Nov 06, 2016 10:38
[2016-11-06] MEDS ORDERED: methylPREDNISolone SOD SUCC 40 MG/1 ML VIAL IM ONE (13:30)
[2016-11-06] MEDS: ACETAMINOPHEN 325 MG TAB PO PRN ×2 (16:05→21:40)
[2016-11-06 18:07] VITALS: BP 138/63; PULSE 89; RESP 17; TEMP 97.9; O2SAT 97
[2016-11-07] MEDS: LORazepam 1 MG TAB PO PRN (00:54)
[2016-11-07] MEDS: ACETAMINOPHEN/HYDROcodone 325 MG/10 MG TAB PO PRN ×3 (00:54→11:55)
[2016-11-07] MEDS: LEVOTHYROXINE SODIUM 112 MCG TAB PO SCH (05:28)
[2016-11-07 05:42] VITALS: BP 136/68; PULSE 93; RESP 16; TEMP 97.5; O2SAT 95
[2016-11-07] MEDS: CALCIUM/VITAMIN D 250 MG/125 U TAB PO SCH ×2 (08:37→11:55)
[2016-11-07] MEDS: clonazePAM 0.5 MG TAB PO SCH (08:37)
[2016-11-07] MEDS: CHOLECALCIFEROL (VIT D3) 5000 UNIT CAP PO SCH (08:37)
[2016-11-07] MEDS: APIXABAN 5 MG TABLET PO SCH (08:37)
[2016-11-07] MEDS: METOPROLOL TARTRATE 25 MG TAB PO SCH (08:38)
[2016-11-07] MEDS: PANTOPRAZOLE SOD 40 MG DELAYED RELEASE TAB PO SCH (08:38)
[2016-11-07] MEDS: VENLAFAXINE HCL XR 37.5 MG CAP PO SCH (08:38)
--- NOTE | 2016-11-07 10:47 | HHI.PYPN ---
Subjective Remarks Patient was seen today for psychiatric reevaluation, she was calm, cooperative and pleasant, displaying a very good sense of humor, she states that she feels much better, she says that the hospitalization has been life saving for her "I was really depressed and hopeless, at least now I opened my eyes". She reports frequent episodes of sadness related with the memory of her , but denies suicidal ideation, homicidal ideation, visual and auditory hallucinations. When he speaks about her patient becomes a little bit tearful and distant, but she denies hopelessness, denies helplessness, denies worthlessness. She denies any pain or distress at this moment. Patient is fully oriented 3, no gross cognitive impairment observed. As per nursing staff no agitation, no aggressive behavior at least during the last 24 hours. Review of Systems Other No somatic complaints Objective Alert: Yes [place]: Person, Place, Date, Situation Mood: Depressed Affect: Labile Memory Intact: Immediate, Recent, Remote Hallucinations: Other (he denies) Delusions: No Delusion Type: Other (none elicited) Suicidal: Ideation (she denies) Homicidal: Ideation (he denies) Insight/Judgement Fair Vitals/IOs Vital Signs Date Time Temp Pulse Resp B/P Pulse Ox O2 Delivery O2 Flow Rate FiO2 11/07/16 05:42 97.5 93 16 136/68 95 Intake and Output 11/06/16 11/06/16 11/07/16 08:00 16:00 00:00 Intake Total 0 ml 480 ml 660 ml Balance 0 ml 480 ml 660 ml Assessment & Plan Problem List: (1) Depression Assessment & Plan: Will increase Effexor to 75 mg to help with depression. Extensive support, motivation psycho education provided. Patient has showed significant improvement and response to psychotropics and psychotherapy, however still fragile and vulnerable to the of her . Will Consult [facility] for potential transfer for comprehensive PT. ICD Code: F32.9 Assessment & Plan Estimated LOS: days Justification for Cont. Inpt. Patient has an elevated risk to decompensate out of and structure environment. Request HC Surrog/Guard Advoc?: No Problem Qualifiers (1) Depression: Byron Bailey MD Nov 07, 2016 10:47
[2016-11-07] MEDS ORDERED: VENL75XR PO (12:59)
[2016-11-07] MEDS ORDERED: AMOX500C PO (15:24)
[2016-11-08] MEDS ORDERED: VENLAFAXINE HCL XR 75 MG CAP PO SCH (09:00)
[2016-11-10] MEDS ORDERED: ERGOCALCIFEROL (VIT D2) 50,000 UNIT CAP PO ONE (09:00)
[2016-11-16] MEDS ORDERED: COMMODE 3-IN-11 MIS (15:54)
[2016-11-16] MEDS ORDERED: WHEEMIS3 (15:54)
[2016-11-21] MEDS ORDERED: HYDR-3366 PO (08:58)
[2016-11-21] MEDS ORDERED: CLON1 PO (08:58)
[2016-11-21] MEDS ORDERED: THERTAB15 PO (08:58)
[2016-11-21] MEDS ORDERED: VENL75XR PO (08:58)
[2016-11-21] MEDS ORDERED: NEXI40CA PO (08:58)
[2016-11-21] MEDS ORDERED: CHOL5000 PO (08:58)
[2016-11-21] MEDS ORDERED: AMLO5 PO (08:58)
[2016-11-21] MEDS ORDERED: APIX5TAB PO (08:58)
[2016-11-21] MEDS ORDERED: OYST250T4 PO (08:58)
[2016-11-21] MEDS ORDERED: LEVO-168 PO (08:58)
[2016-11-21] MEDS ORDERED: VITA100T2 PO (08:58)
[2016-11-21] MEDS ORDERED: METO25TA3 PO (08:58)
[2016-11-21] MEDS ORDERED: DOCU1CAP39 PO (08:58)
== END 2016-11-07 14:41 | DRG 881 ==
LOC: H4EA 18:38
PROVIDERS: ADMIT Psychiatry & Neurology Psychiatry; ATTEND Psychiatry & Neurology Psychiatry
DX: F32.9 Major depressive disorder, single episode, unspecified (principal); S72.009D Fracture of unspecified part of neck of unspecified femur, subsequent encounter for closed fracture with routine healing; I10 Essential (primary) hypertension; E03.9 Hypothyroidism, unspecified
CPT/HCPCS: J1200; J2920; Q0163

== ENCOUNTER 2016-11-24 08:24 | Emergency (ER) | payer MEDICARE, BC ==
[~2016-11-24] VITALS: Ht 160 cm; Wt 65.0 kg
[~2016-11-24 08:24] MED LIST changes: +AMLO5 PO; -AMOX500C PO; +CLON1 PO; +COMMODE 3-IN-11 MIS; +DOCU1CAP39 PO; -DRIS50002 PO; +THERTAB15 PO; +VENL75XR PO; +VITA100T2 PO; +WHEEMIS3
[2016-11-24 08:41] VITALS: BP 147/69; PULSE 82; RESP 20; TEMP 97.7; O2SAT 97
--- NOTE | 2016-11-24 09:20 | PD ---
HPI Chief Complaint: Injury Time Seen by Provider: 09:05 Travel History International Travel<30 days: No Contact w/Intl Traveler<30days: No Traveled to known affect area: No History of Present Illness HPI 71-year-old female presents to the emergency department by EMS with complaint of left hip pain. History of left hip surgery approximately 3 weeks ago. Last night she was in her wheelchair and was trying to get around a wall and hit the wall causing her left hip to be painful. She has been ambulatory on the affected extremity but she says that it is severely painful. She admits to drinking 2 alcoholic beverages. She denies fall or trauma. Denies paresthesias , loss of sensation to the affected extremity. Reports decreased range of motion secondary to pain. Denies fever, chills, nausea, vomiting. Took her prescribed medication she says acute or oxycodone or morphine this morning for pain. Allergies to sulfa. Has not followed up with orthopedic post surgery; she says to early for follow-up. No other modifying factors or associated signs and symptoms. PFSH Past Medical History Arthritis: Yes Asthma: No Autoimmune Disease: Yes (RA) Anxiety: Yes Depression: Yes Heart Rhythm Problems: Yes (A FIB) Cancer: Yes (LEFT BREAST CA) Cardiovascular Problems: Yes High Cholesterol: Yes Chemotherapy: No Chest Pain: No Congestive Heart Failure: No COPD: No Cerebrovascular Accident: Yes (2016) Coronary Artery Disease: Yes Diabetes: No Diminished Hearing: Yes Endocrine: Yes Gastrointestinal Disorders: Yes (GASTRIC ULCERS) GERD: Yes Genitourinary: No Hiatal Hernia: No Hypertension: Yes Immune Disorder: No Implanted Vascular Access Dvce: No Kidney Stones: No Medical other: Yes (FLUID RETENTION-ACID REFLUX) Musculoskeletal: Yes Neurologic: No Psychiatric: No Reproductive: No Respiratory: No Immunizations Current: Yes Migraines: Yes Pancreatitis: Yes Radiation Therapy: Yes Renal Failure: No Seizures: Yes (2) Sickle Cell Disease: No Sleep Apnea: No Thyroid Disease: Yes (hypothyroid disease) Ulcer: Yes (peptic ulcers) Tetanus Vaccination: < 5 Years Menopausal: Yes : 2 Para: 1 Miscarriage: 1 Past Surgical History Abdominal Surgery: Yes (LYSIS OF ADHESIONS ) AICD: No Appendectomy: Yes Arteriovenous Shunt: No Cardiac Surgery: No Ear Surgery: No Endocrine Surgery: No Eye Surgery: No Genitourinary Surgery: No Gynecologic Surgery: Yes (Hysterectomy) Hysterectomy: Yes Insulin Pump: No Joint Replacement: No Oral Surgery: Yes (caps) Pacemaker: No Thoracic Surgery: No Other Surgery: Yes (COLDWELL/SINUS REPAIR) Social History Alcohol Use: Yes ("occasionally" ) Tobacco Use: No (quit 20+ yrs ago smoked cigs) Substance Use: Yes (pot) Allergies-Medications (Allergen,Severity, Reaction): Coded Allergies: Sulfa (Verified Allergy, Intermediate, rash, 11/24/16) Reported Meds & Prescriptions Reported Meds & Active Scripts Active Norvasc (Amlodipine Besylate) 5 Mg Tab 5 Mg PO DAILY Klonopin (Clonazepam) 1 Mg Tab 1 Mg PO BID Dok (Docusate Sodium) 100 Mg Cap 100 Mg PO BID Thera/Beta-Carotene (Multiple Vitamin) 1 Tab Tab 1 Tab PO DAILY Vitamin B-1 (Thiamine HCl) 100 Mg Tab 100 Mg PO DAILY Metoprolol Tartrate 25 Mg Tab 25 Mg PO BID Effexor XR 24 HR (Venlafaxine HCl) 75 Mg Cap 150 Mg PO DAILY [place] (Hydrocodone-Acetaminophen) 10-325 Mg Tab 1 Tab PO Q4H PRN Vitamin D3 (Cholecalciferol) 5,000 Unit Cap 5,000 Units PO DAILY Oyster Shell Calcium/Vitamin D (Calcium Carbonate-Cholecalciferol) 250-125 Mg- Unit Tab 250 Mg PO TID Levothyroxine (Levothyroxine Sodium) 112 Mcg Tab 112 Mcg PO DAILY Nexium (Esomeprazole DR) 40 Mg Capdr 40 Mg PO DAILY Eliquis (Apixaban) 5 Mg Tab 5 Mg PO BID Commode 3-in-1 (Device) 1 Mis Mis 1 Ea .ROUTE DIRECTED Wheelchair (Device) 1 Mis Mis 1 Ea .ROUTE DIRECTED Walker/Adult/Folding (Device) 1 Mis Mis 1 Ea .ROUTE DIRECTED Review of Systems Except as stated in HPI: all other systems reviewed are Neg Physical Exam Narrative GENERAL: Well-nourished, well-developed female patient, in no acute distress SKIN: Warm and dry. HEAD: Atraumatic. Normocephalic. EYES: Pupils equal and round. No scleral icterus. No injection or drainage. ENT: Mucosa pink and moist. Airway patent. NECK: Trachea midline. CARDIOVASCULAR: Regular rate and rhythm. RESPIRATORY: No accessory muscle use. GASTROINTESTINAL: Rounded. MUSCULOSKELETAL: Left hip with full range of motion and without erythema, edema , ecchymosis; surgical scars without erythema, edema, drainage and without signs of infection; hip is with tenderness on abduction; no leg length discrepancy. Left lower extremity supple and nontender to was pupils and sensory intact and without erythema or edema. No obvious deformity. NEUROLOGICAL: Awake and alert. Oriented 3. No obvious cranial nerve deficits. Motor grossly within normal limits. Normal speech. PSYCHIATRIC: Appropriate mood and affect; insight and judgment normal. Data Data Last Documented VS Vital Signs Date Time Temp Pulse Resp B/P Pulse Ox O2 Delivery O2 Flow Rate FiO2 11/24/16 08:41 97.7 82 20 147/69 97 Room Air Orders Hip, Uni(Ap&Lat) W Ap Pelvis (11/24/16 09:01) MDM Medical Decision Making Medical Screen Exam Complete: Yes Emergency Medical Condition: Yes Medical Record Reviewed: Yes Differential Diagnosis Hip contusion, hip pain, less likely fracture Narrative Course 61-year-old female physical exam and history of present illness consistent with left hip contusion. The patient is in excruciating pain on examination. I will x-ray the left hip to rule out acute process. She had a left hip ORIF approximately 3 weeks ago after fracturing her left hip. Left hip x-ray ordered. Patient previously took morphine or oxycodone prior to arrival. Left hip x-ray concludes: Last 24 hours Impressions Hip and Pelvis X-Ray 11/24/16 0901 Signed Impressions: Service Date/Time: October 09:21 - CONCLUSION: Proximal left femur fracture status post ORIF. Anil Bo MD Patient provided with a copy of the x-ray report. She has a walker and wheelchair at home for support. Patient to continue medications as prescribed. Instructed patient to follow up with orthopedic surgeon. She does not recall when her appointment is or the orthopedics name. Patient verbalizes understanding and agreement with treatment plan. Patient is medically cleared and stable for discharge. Discussed reasons to return to the emergency department. Instructed patient to follow up with primary care provider. Patient agrees with treatment plan. The patients vital signs are stable and the patient is stable for outpatient follow-up and treatment. Patient discharged home, stable and in no acute distress. Diagnosis Primary Impression: Contusion of left hip Qualified Code: S70.02XA - Contusion of left hip, initial encounter Additional Impression: Left hip pain Referrals: Orthopaedic Surgeon Primary Care Physician Patient Instructions: General Instructions, Hip Contusion (ED) Additional Instructions: Tylenol or ibuprofen as directed and as needed for pain and inflammation Ice to affected area to reduce pain and inflammation Walker for support Follow-up with orthopedic surgeon Follow-up with primary care provider Return to the emergency department immediately with worsening symptoms Med/Other Pt SpecificInfo: No Change to Meds, No Meds Exist/No RX given Disposition: 01 DISCHARGE HOME Condition: Stable Luisa Goodman Nov 24, 2016 09:20
--- NOTE | 2016-11-24 10:05 | RADRPT ---
EXAM DATE/TIME: 11/24/2016 09:21 [facility] COMPARISON: HIP LEFT (AP&LAT 2/3VWS) W AP PELVIS, October 31, 2016, 20:11. INDICATIONS : Left lateral hip impact injury from door. Fracture repair 3 weeks ago. MEDICAL HISTORY : Stroke. Hypothyroidism. Carcinoma, breast. Hypertension. Cardiovascular disease. SURGICAL HISTORY : Sinus surgery. Left hip fracture repair. ENCOUNTER: Subsequent ACUITY: 1 day PAIN SCORE: 9/10 LOCATION: Left hip FINDINGS: 3 views of the left hip and pelvis. Previously identified proximal left femur fracture is again seen. Left-sided hip screw and intramedullary tulio are in place. Hip joint alignment within normal limits. No new fracture identified. Residual contrast is seen in the colon with multiple diverticula. CONCLUSION: Proximal left femur fracture status post ORIF. Anil Bo MD on November 24, 2016 at 10:01 Board Certified Radiologist. This report was verified electronically.
== END 2016-11-24 10:32 | disposition home or self-care (01) ==
LOC: NEPB 08:24
DX: S70.02XA Contusion of left hip, initial encounter (principal); M19.90 Unspecified osteoarthritis, unspecified site; I48.91 Unspecified atrial fibrillation; E78.00 Pure hypercholesterolemia, unspecified; Z98.890 Other specified postprocedural states; Z86.73 Personal history of transient ischemic attack (TIA), and cerebral infarction without residual deficits; V00.812A Wheelchair (powered) colliding with stationary object, initial encounter
CPT/HCPCS: 73502; 99283

== ENCOUNTER 2016-11-26 10:05 | Emergency (ER) | payer MEDICARE, BC ==
[~2016-11-26] VITALS: Ht 167.6 cm; Wt 63.5 kg
[2016-11-26 10:07] VITALS: BP 174/84; PULSE 73; RESP 18; TEMP 97.8; O2SAT 100
[2016-11-26] MEDS ORDERED: KETOROLAC TROMETHAMINE 60 MG/2 ML (IM) VIAL IM ONE (10:30)
--- NOTE | 2016-11-26 10:32 | PD ---
HPI Chief Complaint: Pain: Acute or Chronic Time Seen by Provider: 10:08 Travel History International Travel<30 days: No Contact w/Intl Traveler<30days: No Traveled to known affect area: No History of Present Illness HPI 71-year-old female complains of left hip pain. Patient has history of fracture left femur status post hip surgery November 01, 2016. Patient states that she has increasing left hip today. Patient denies any recent injury. Patient states that she took 2 hydrocodone 10 tablets for pain this morning from her neighbor' s medication. Patient states the pain is sharp pain localized to left hip. Patient denies any pain radiation. Patient denies any other injury. Patient does not know the name of her private physician or the name of her medications. Patient has a home health nurse at home. Patient was seen in the emergency room 2 days ago with the same complaint. X-ray left hip was negative acute injury. Patient was advised to follow up with her physician for pain management. Narcisaing Jacque Corrigan, patient had prescription for Lortab 10 dispensed 120 pills on November 23. PFSH Past Medical History Arthritis: Yes Asthma: No Autoimmune Disease: Yes (RA) Anxiety: Yes Depression: Yes Heart Rhythm Problems: Yes (A FIB) Cancer: Yes (LEFT BREAST CA) Cardiovascular Problems: Yes High Cholesterol: Yes Chemotherapy: No Chest Pain: No Congestive Heart Failure: No COPD: No Cerebrovascular Accident: Yes (2016) Coronary Artery Disease: Yes Diabetes: No Diminished Hearing: Yes Endocrine: Yes Gastrointestinal Disorders: Yes (GASTRIC ULCERS) GERD: Yes Genitourinary: No Headaches: No Hiatal Hernia: No Heparin Induced Thrombocytopen: No Hypertension: Yes Immune Disorder: No Implanted Vascular Access Dvce: No Kidney Stones: No Medical other: Yes (FLUID RETENTION-ACID REFLUX) Musculoskeletal: Yes Neurologic: No Psychiatric: No Reproductive: No Respiratory: No Immunizations Current: Yes Migraines: Yes Pancreatitis: Yes Radiation Therapy: Yes Renal Failure: No Seizures: Yes (2) Sickle Cell Disease: No Sleep Apnea: No Thyroid Disease: Yes (hypothyroid disease) Ulcer: Yes (peptic ulcers) Menopausal: Yes : 2 Para: 1 Miscarriage: 1 Past Surgical History Abdominal Surgery: Yes (LYSIS OF ADHESIONS ) AICD: No Appendectomy: Yes Arteriovenous Shunt: No Cardiac Surgery: No Ear Surgery: No Endocrine Surgery: No Eye Surgery: No Genitourinary Surgery: No Gynecologic Surgery: Yes (Hysterectomy) Hysterectomy: Yes Insulin Pump: No Joint Replacement: No Neurologic Surgery: No Oral Surgery: Yes (caps) Pacemaker: No Thoracic Surgery: No Other Surgery: Yes (COLDWELL/SINUS REPAIR) Social History Alcohol Use: Yes ("occasionally" ) Tobacco Use: No (quit 20+ yrs ago smoked cigs) Substance Use: Yes (pot) Allergies-Medications (Allergen,Severity, Reaction): Coded Allergies: Sulfa (Verified Allergy, Intermediate, rash, 11/24/16) Reported Meds & Prescriptions Reported Meds & Active Scripts Active Norvasc (Amlodipine Besylate) 5 Mg Tab 5 Mg PO DAILY Klonopin (Clonazepam) 1 Mg Tab 1 Mg PO BID Dok (Docusate Sodium) 100 Mg Cap 100 Mg PO BID Thera/Beta-Carotene (Multiple Vitamin) 1 Tab Tab 1 Tab PO DAILY Vitamin B-1 (Thiamine HCl) 100 Mg Tab 100 Mg PO DAILY Metoprolol Tartrate 25 Mg Tab 25 Mg PO BID Effexor XR 24 HR (Venlafaxine HCl) 75 Mg Cap 150 Mg PO DAILY [place] (Hydrocodone-Acetaminophen) 10-325 Mg Tab 1 Tab PO Q4H PRN Vitamin D3 (Cholecalciferol) 5,000 Unit Cap 5,000 Units PO DAILY Oyster Shell Calcium/Vitamin D (Calcium Carbonate-Cholecalciferol) 250-125 Mg- Unit Tab 250 Mg PO TID Levothyroxine (Levothyroxine Sodium) 112 Mcg Tab 112 Mcg PO DAILY Nexium (Esomeprazole DR) 40 Mg Capdr 40 Mg PO DAILY Eliquis (Apixaban) 5 Mg Tab 5 Mg PO BID Commode 3-in-1 (Device) 1 Mis Mis 1 Ea .ROUTE DIRECTED Wheelchair (Device) 1 Mis Mis 1 Ea .ROUTE DIRECTED Walker/Adult/Folding (Device) 1 Mis Mis 1 Ea .ROUTE DIRECTED Review of Systems General / Constitutional: No: Fever Eyes: No: Visual changes HENT: No: Headaches Cardiovascular: No: Chest Pain or Discomfort Respiratory: No: Shortness of Breath Gastrointestinal: No: Abdominal Pain Genitourinary: No: Dysuria Musculoskeletal: Positive: Pain Skin: No Rash Neurologic: No: Weakness Psychiatric: No: Depression Endocrine: No: Polydipsia Hematologic/Lymphatic: No: Easy Bruising Physical Exam Narrative GENERAL: Well-nourished, well-developed patient. SKIN: Focused skin assessment warm/dry. HEAD: Normocephalic. EYES: No scleral icterus. No injection or drainage. NECK: Supple, trachea midline. No JVD or lymphadenopathy. CARDIOVASCULAR: Regular rate and rhythm without murmurs, gallops, or rubs. RESPIRATORY: Breath sounds equal bilaterally. No accessory muscle use. GASTROINTESTINAL: Abdomen soft, non-tender, nondistended. MUSCULOSKELETAL: No cyanosis, or edema. BACK: Nontender without obvious deformity. No CVA tenderness. Patient has mild to moderate tenderness on palpation lateral aspect of the left hip joint. Well-healing surgical scar lateral aspect the left hip. No redness no heat noted. Full range of motion the left hip joint. Data Data Last Documented VS Vital Signs Date Time Temp Pulse Resp B/P Pulse Ox O2 Delivery O2 Flow Rate FiO2 11/26/16 10:07 97.8 73 18 174/84 100 Orders Hip, Uni(Ap&Lat) Wo Ap Pelvis (11/26/16 10:15) Ketorolac Inj (Toradol Inj) (11/26/16 10:30) MDM Medical Decision Making Medical Screen Exam Complete: Yes Emergency Medical Condition: Yes Interpretation(s) X-ray left hip shows no acute process. Status post left femur surgery. Differential Diagnosis Differential diagnosis including acute exacerbation of chronic pain, fracture, dislocation. Narrative Course 71-year-old female with acute exacerbation of left hip pain. Patient is on hydrocodone at home. Toradol 30 mg IM. Diagnosis Primary Impression: Left hip pain Additional Impression: Closed left hip fracture Qualified Code: S72.002D - Closed left hip fracture, with routine healing, subsequent encounter Patient Instructions: General Instructions Additional Instructions: Take medications as needed for pain. Follow-up with orthopedist and personal physician. Return if worse. Med/Other Pt SpecificInfo: Prescription(s) given, No Change to Meds Scripts Methocarbamol (Robaxin)750 Mg [id number] Mg PO QID #40 TAB Prov:Pedro Keith MD 11/26/16 Disposition: 01 DISCHARGE HOME Condition: Stable Pedro Keith MD Nov 26, 2016 10:32
[2016-11-26] MEDS ORDERED: ROBA750T PO (11:10)
--- NOTE | 2016-11-26 11:27 | RADHPO ---
EXAM DATE/TIME: 11/26/2016 10:39 [facility] COMPARISON: HIP LEFT (AP&LAT 2/3VWS) WO AP PELVIS, November 17, 2016, 14:26. INDICATIONS : Hit left hip on counter last pm, has increasing pain, states she was ambulatory after injury MEDICAL HISTORY : Hypertension. SURGICAL HISTORY : Appendectomy. Left troch nail ENCOUNTER: Initial ACUITY: 1 day PAIN SCORE: 8/10 LOCATION: Left hip FINDINGS: Troch nail is seen bridging the trochanteric fracture on the left. Alignment is anatomic. There is no significant fracture callus evident. CONCLUSION: Anatomic alignment. Balaji Hill MD FACR on November 26, 2016 at 11:17 Board Certified Radiologist. This report was verified electronically.
== END 2016-11-26 11:29 | disposition home or self-care (01) ==
LOC: PHED 10:05
DX: S72.002D Fracture of unspecified part of neck of left femur, subsequent encounter for closed fracture with routine healing (principal); M06.9 Rheumatoid arthritis, unspecified; E03.9 Hypothyroidism, unspecified; K85.90 Acute pancreatitis without necrosis or infection, unspecified; I10 Essential (primary) hypertension; K21.9 Gastro-esophageal reflux disease without esophagitis; I25.10 Atherosclerotic heart disease of native coronary artery without angina pectoris; X58.XXXD Exposure to other specified factors, subsequent encounter; Z86.73 Personal history of transient ischemic attack (TIA), and cerebral infarction without residual deficits
CPT/HCPCS: 73502; 96372; 99283; J1885

== ENCOUNTER 2016-11-28 01:25 | Observation (INO) | payer MEDICARE, BC ==
[2016-11-28] VITALS (8 sets, daily range): BP systolic 127–149; BP diastolic 69–89; PULSE 69–88; RESP 16–18; TEMP 95.7–98.7; O2SAT 94–100
[~2016-11-28] VITALS: Ht 167.6 cm; Wt 65.0 kg
[~2016-11-28 01:25] MED LIST changes: +ROBA750T PO
[2016-11-28] MEDS ORDERED: SODIUM CHLORID 0.9% 500 ML INJ 500 ML IV ONE (03:15)
--- NOTE | 2016-11-28 04:12 | RADRPT ---
EXAM DATE/TIME: 11/28/2016 03:28 [facility] COMPARISON: No previous studies available for comparison. INDICATIONS : Left leg swelling. MEDICAL HISTORY : Hypercholesterolemia. Hypertension. CVA. Left leg swelling. Syncope. Coronary artery disease. Lef t breast cancer. SURGICAL HISTORY : Left knee replacement. ENCOUNTER: Initial ACUITY: 4 - 6 days PAIN SCORE: 8/10 LOCATION: Left leg. TECHNIQUE: Venous ultrasound of the leg was performed from the inguinal ligament to the proximal calf. Real-lianna e, color Doppler and spectral tracing, compression and augmentation techniques were used. FINDINGS: There is normal compressibility of the deep venous system from the inguinal region to the proximal ca lf. No echogenic clot is seen in the lumen of the common femoral, femoral, popliteal, and posterior tibial veins. There is a normal response of the venous system to proximal and distal augmentation an d respiration. CONCLUSION: Normal examination. Sudarshan Raza Jr., MD on November 28, 2016 at 4:10 Board Certified Radiologist. This report was verified electronically.
[2016-11-28 04:42] LABS: BASOPHIL % 0.5 % (0.0-2.0); EOSINOPHIL # 0.1 TH/MM3 (0-0.4); EOSINOPHIL % 1.5 % (0.0-4.0); HEMATOCRIT 33.6 % (35.0-46.0); HEMO FLAGS DIFF FINAL; LYMPH % 32.1 % (9.0-44.0); LYMPHOCYTE # 2.3 TH/MM3 (1.0-4.8); MEAN CELL VOLUME 94.9 FL (80.0-100.0); MEAN CORPUSCULAR HEMOGLOBIN 31.8 PG (27.0-34.0); MEAN CORPUSCULAR HGB CONC 33.5 % (32.0-36.0); MONO % 10.6 % (0.0-8.0); NEUT % 55.3 % (16.0-70.0); PLATELET COUNT 356 TH/MM3 (150-450); RED BLOOD COUNT 3.54 MIL/MM3 (4.00-5.30); RED CELL DISTRIBUTION WIDTH 15.7 % (11.6-17.2); WHITE BLOOD COUNT 7.2 TH/MM3 (4.0-11.0)
[2016-11-28 04:53] LABS: INTERNATIONAL NORMALIZED RATIO 1.1 RATIO; PROTHROMBIN TIME - PATIENT 11.9 SEC (9.8-11.6)
[2016-11-28 05:02] LABS: ANION GAP 10 MEQ/L (5-15); AST (GOT) 18 U/L (15-37); BICARBONATE 25.7 MEQ/L (21.0-32.0); BLOOD UREA NITROGEN 16 MG/DL (7-18); CHLORIDE 101 MEQ/L (98-107); GLOMERULAR FILTRATION RATE 65 ML/MIN (>89); POTASSIUM 3.8 MEQ/L (3.5-5.1); SODIUM (NA) 137 MEQ/L (136-145)
[2016-11-28 05:05] LABS: ALKALINE PHOSPHATASE 131 U/L (45-117); ALT (GPT) 11 U/L (10-53); TOTAL BILIRUBIN ADULT 0.7 MG/DL (0.2-1.0)
--- NOTE | 2016-11-28 05:15 | RADRPT ---
EXAM DATE/TIME: 11/28/2016 04:39 [facility] COMPARISON: No previous studies available for comparison. INDICATIONS : Left hip pain. MEDICAL HISTORY : Hypertension. SURGICAL HISTORY : ORIF left hip. ENCOUNTER: Subsequent ACUITY: 1 week PAIN SCORE: 7/10 LOCATION: Left hip. FINDINGS: A single frontal view the pelvis shows a left femoral neck and intramedullary tulio traversing an old i ntertrochanteric fracture. No acute fractures or dislocations. Venous calcifications overlie the pelv is. Retained barium within multiple sigmoid diverticula. Surgical clips overlie the left hemipelvis. Normal bowel gas pattern observed. CONCLUSION: No acute abnormality. Sudarshan Raza Jr., MD on November 28, 2016 at 5:12 Board Certified Radiologist. This report was verified electronically.
[2016-11-28] MEDS ORDERED: ONDANSETRON HCL 4 MG/2 ML VIAL IV PUSH ONE (05:30)
[2016-11-28] MEDS ORDERED: MORPHINE SULFATE 4 MG/ML INJ IV PUSH ONE (05:30)
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
--- NOTE | 2016-11-28 05:49 | PD ---
HPI Chief Complaint: Pain: Acute or Chronic Time Seen by Provider: 01:55 Travel History International Travel<30 days: No Contact w/Intl Traveler<30days: No Traveled to known affect area: No PFSH Past Medical History Arthritis: Yes Asthma: No Autoimmune Disease: Yes (RA) Anxiety: Yes Depression: Yes Heart Rhythm Problems: Yes (A FIB) Cancer: Yes (LEFT BREAST CA) Cardiovascular Problems: Yes High Cholesterol: Yes Chemotherapy: No Chest Pain: No Congestive Heart Failure: No COPD: No Cerebrovascular Accident: Yes (2016) Coronary Artery Disease: Yes Diabetes: No Diminished Hearing: Yes Endocrine: Yes Gastrointestinal Disorders: Yes (GASTRIC ULCERS) GERD: Yes Genitourinary: No Headaches: No Hiatal Hernia: No Heparin Induced Thrombocytopen: No Hypertension: Yes Immune Disorder: No Implanted Vascular Access Dvce: No Kidney Stones: No Medical other: Yes (FLUID RETENTION-ACID REFLUX) Musculoskeletal: Yes Neurologic: No Psychiatric: No Reproductive: No Respiratory: No Immunizations Current: Yes Migraines: Yes Pancreatitis: Yes Radiation Therapy: Yes Renal Failure: No Seizures: Yes (2) Sickle Cell Disease: No Sleep Apnea: No Thyroid Disease: Yes (hypothyroid disease) Ulcer: Yes (peptic ulcers) Tetanus Vaccination: < 5 Years Menopausal: Yes : 2 Para: 1 Miscarriage: 1 Past Surgical History Abdominal Surgery: Yes (LYSIS OF ADHESIONS ) AICD: No Appendectomy: Yes Arteriovenous Shunt: No Cardiac Surgery: No Ear Surgery: No Endocrine Surgery: No Eye Surgery: No Genitourinary Surgery: No Gynecologic Surgery: Yes (Hysterectomy) Hysterectomy: Yes Insulin Pump: No Joint Replacement: No Neurologic Surgery: No Oral Surgery: Yes (caps) Pacemaker: No Thoracic Surgery: No Other Surgery: Yes (COLDWELL/SINUS REPAIR) Social History Alcohol Use: Yes ("occasionally" ) Tobacco Use: No (quit 20+ yrs ago smoked cigs) Substance Use: Yes (pot) Allergies-Medications (Allergen,Severity, Reaction): Coded Allergies: Sulfa (Verified Allergy, Intermediate, rash, 11/24/16) Reported Meds & Prescriptions Reported Meds & Active Scripts Active Robaxin (Methocarbamol) 750 Mg Tab 750 Mg PO QID Norvasc (Amlodipine Besylate) 5 Mg Tab 5 Mg PO DAILY Klonopin (Clonazepam) 1 Mg Tab 1 Mg PO BID Dok (Docusate Sodium) 100 Mg Cap 100 Mg PO BID Thera/Beta-Carotene (Multiple Vitamin) 1 Tab Tab 1 Tab PO DAILY Vitamin B-1 (Thiamine HCl) 100 Mg Tab 100 Mg PO DAILY Metoprolol Tartrate 25 Mg Tab 25 Mg PO BID Effexor XR 24 HR (Venlafaxine HCl) 75 Mg Cap 150 Mg PO DAILY [place] (Hydrocodone-Acetaminophen) 10-325 Mg Tab 1 Tab PO Q4H PRN Vitamin D3 (Cholecalciferol) 5,000 Unit Cap 5,000 Units PO DAILY Oyster Shell Calcium/Vitamin D (Calcium Carbonate-Cholecalciferol) 250-125 Mg- Unit Tab 250 Mg PO TID Levothyroxine (Levothyroxine Sodium) 112 Mcg Tab 112 Mcg PO DAILY Nexium (Esomeprazole DR) 40 Mg Capdr 40 Mg PO DAILY Eliquis (Apixaban) 5 Mg Tab 5 Mg PO BID Commode 3-in-1 (Device) 1 Mis Mis 1 Ea .ROUTE DIRECTED Wheelchair (Device) 1 Mis Mis 1 Ea .ROUTE DIRECTED Walker/Adult/Folding (Device) 1 Mis Mis 1 Ea .ROUTE DIRECTED Data Data Last Documented VS Vital Signs Date Time Temp Pulse Resp B/P Pulse Ox O2 Delivery O2 Flow Rate FiO2 11/28/16 05:41 18 11/28/16 05:40 97 Room Air 11/28/16 01:29 98.7 78 131/79 Orders Complete Blood Count With Diff (11/28/16 03:10) Comprehensive Metabolic Panel (11/28/16 03:10) Prothrombin Time / Inr (Pt) (11/28/16 03:10) Act Partial Throm Time (Ptt) (11/28/16 03:10) C-Reactive Protein (Crp) (11/28/16 03:10) W[place]gren Sedimentation Rate (11/28/16 03:10) Pelvis, Ap Only (Routine) (11/28/16 03:10) Iv Access Insert/Monitor (11/28/16 03:10) Ecg Monitoring (11/28/16 03:10) Oximetry (11/28/16 03:10) Lactic Acid Sepsis Protocol (11/28/16 03:10) Sodium Chlorid 0.9% 500 Ml Inj (Ns 500 M (11/28/16 03:15) Us Leg Venous Doppler (11/28/16 03:12) Morphine Inj (Morphine Inj) (11/28/16 05:30) Ondansetron Inj (Zofran Inj) (11/28/16 05:30) Admit Order (Ed Use Only) (11/28/16 05:39) Labs Laboratory Tests Test 11/28/16 04:26 White Blood Count 7.2 TH/MM3 Red Blood Count 3.54 MIL/MM3 Hemoglobin 11.3 GM/DL Hematocrit 33.6 % Mean Corpuscular Volume 94.9 FL Mean Corpuscular Hemoglobin 31.8 PG Mean Corpuscular Hemoglobin 33.5 % Concent Red Cell Distribution Width 15.7 % Platelet Count 356 TH/MM3 Mean Platelet Volume 7.4 FL Neutrophils (%) (Auto) 55.3 % Lymphocytes (%) (Auto) 32.1 % Monocytes (%) (Auto) 10.6 % Eosinophils (%) (Auto) 1.5 % Basophils (%) (Auto) 0.5 % Neutrophils # (Auto) 4.0 TH/MM3 Lymphocytes # (Auto) 2.3 TH/MM3 Monocytes # (Auto) 0.8 TH/MM3 Eosinophils # (Auto) 0.1 TH/MM3 Basophils # (Auto) 0.0 TH/MM3 CBC Comment DIFF FINAL Differential Comment Erythrocyte Sedimentation Rate GREATER THAN 140 mm/hr Prothrombin Time 11.9 SEC Prothromb Time International 1.1 RATIO Ratio Activated Partial 31.0 SEC Thromboplast Time Sodium Level 137 MEQ/L Potassium Level 3.8 MEQ/L Chloride Level 101 MEQ/L Carbon Dioxide Level 25.7 MEQ/L Anion Gap 10 MEQ/L Blood Urea Nitrogen 16 MG/DL Creatinine 0.86 MG/DL Estimat Glomerular Filtration 65 ML/MIN Rate Random Glucose 101 MG/DL Lactic Acid Level 0.7 mmol/L Calcium Level 9.2 MG/DL Total Bilirubin 0.7 MG/DL Aspartate Amino Transf 18 U/L (AST/SGOT) Alanine Aminotransferase 11 U/L (ALT/SGPT) Alkaline Phosphatase 131 U/L C-Reactive Protein 0.69 MG/DL Total Protein 7.0 GM/DL Albumin 3.3 GM/DL Meagan Jones MD Nov 28, 2016 05:49
[2016-11-28] MEDS ORDERED: NALOXONE HCL 0.4 MG/ML AMP IV PRN (07:15)
[2016-11-28] MEDS ORDERED: MORPHINE SULFATE 4 MG/ML INJ IV PRN ×2 (07:15)
[2016-11-28] MEDS ORDERED: ONDANSETRON HCL 4 MG/2 ML VIAL IVP PRN (07:15)
[2016-11-28] MEDS ORDERED: SENNOSIDES 8.6 MG TAB PO PRN (07:15)
[2016-11-28] MEDS ORDERED: ACETAMINOPHEN 325 MG TAB PO PRN ×2 (07:15)
[2016-11-28] MEDS ORDERED: SODIUM CHLORIDE 0.9% FLUSH 10 ML FLUSH IV FLUSH PRN (07:15)
[2016-11-28] MEDS: SODIUM CHLORIDE 0.9% FLUSH 10 ML FLUSH IV FLUSH SCH ×2 (07:18→20:59)
--- NOTE | 2016-11-28 07:32 | PD.ORT.PN ---
Subjective Subjective Remarks Sita had a left hip intertrochanteric fracture approximately 4 weeks ago treated with reduction and intramedullary nail fixation. She has been at home. She has had difficulty ambulating with a walker. She presented back to the emergency room with increased pain. Objective Vitals Vital Signs Date Time Temp Pulse Resp B/P Pulse Ox O2 Delivery O2 Flow Rate FiO2 11/28/16 07:19 88 18 141/85 97 Nasal Cannula 2 11/28/16 06:34 86 18 149/89 95 Room Air 11/28/16 05:41 18 11/28/16 05:40 97 Room Air 11/28/16 01:29 98.7 78 18 131/79 97 Result Diagram: 11/28/16 0426 11/28/16 0426 Other Results Laboratory Tests Test 11/28/16 04:26 Prothrombin Time 11.9 SEC (9.8-11.6) Prothromb Time International 1.1 RATIO Ratio Imaging Last 24 hours Impressions Lower Extremity Ultrasound 11/28/16311 Signed Impressions: Service Date/Time: Monday, November 28, 2016 03:28 - CONCLUSION: Normal examination. Sudarshan Raza Jr., MD Pelvis X-Ray 11/28/16309 Signed Impressions: Service Date/Time: Monday, November 28, 2016 04:39 - CONCLUSION: No acute abnormality. Sudarshan Raza Jr., MD Objective Remarks Sita is awake and alert. Examination of left leg reveals well-healed surgical incisions. There is no fluctuance or erythema. She has mild swelling around her incisions. She has minimal pain with gentle range of motion of her hip. Sensation is intact to left foot. Assessment & Plan Assessment and Plan X-rays were reviewed of the left hip. She has a well aligned left hip intertrochanteric fracture. Hardware is in good position. Sita may continue to weight-bear as tolerated. She is having difficulty taking care of herself at home. She may need a short stay at a SNF or rehabilitation center. Arden Hernandez MD Nov 28, 2016 07:31
[2016-11-28] MEDS: SODIUM CHLOR 0.9% 1000 ML INJ 1,000 ML IV SCH ×2 (08:56→15:04)
[2016-11-28 09:14] LABS: BLOOD, URINE NEG (NEG); GLUCOSE,URINE NEG (NEG); KETONE, URINE NEG (NEG); NITRITE,URINE NEG (NEG); PH, URINE 6.5 (5.0-8.5); SQUAMOUS EPITHELIAL CELL URINE 1 /hpf (0-5); URINE COLOR YELLOW (YELLW/STRAW)
[2016-11-28 09:19] LABS: COMMENT (UR) CULT NOT INDICATED; CULTURE IF INDICATED CULT NOT INDICATED
[2016-11-28] MEDS: METHOCARBAMOL 500 MG TAB PO SCH ×3 (11:12→21:01)
[2016-11-28] MEDS: VENLAFAXINE HCL XR 75 MG CAP PO SCH (11:12)
[2016-11-28] MEDS: amLODIPine BESYLATE 5 MG TAB PO SCH (11:12)
[2016-11-28] MEDS: PANTOPRAZOLE SOD 40 MG DELAYED RELEASE TAB PO SCH (11:13)
[2016-11-28] MEDS: METOPROLOL TARTRATE 25 MG TAB PO SCH ×2 (11:13→21:01)
[2016-11-28] MEDS: APIXABAN 5 MG TABLET PO SCH ×2 (11:13→21:00)
[2016-11-28] MEDS: LEVOTHYROXINE SODIUM 112 MCG TAB PO SCH (11:13)
[2016-11-28] MEDS: clonazePAM 1 MG TAB PO SCH ×2 (11:13→21:00)
--- NOTE | 2016-11-28 12:56 | MH ---
cc: SHIRAZ MONGE MD DATE OF ADMISSION: 11/28/2016 DATE OF : 1945 TRAVEL IN THE LAST 30 DAYS None. HISTORY OF PRESENT ILLNESS This is an anxious 71-year-old female who has come into the hospital with increasing hip pain and problems with ambulating. According to the patient and the record she had a fall with a left hip intertrochanteric fracture on November 01, 2016. This fracture was acquired during her previous hospital stay in which she attempted suicide and was medically managed on the psychiatric unit for a period of time. The patient states she did not go to rehab following her surgical procedure and her surgeon was Dr. Hernandez. She has not seen him as a follow-up since she went home. Currently the patient has been living alone with people coming in daily to assist her with her medical care. She states that her left hip pain is 8/10, which is causing her severe problems with debility and ambulating. Otherwise the patient denies any chest pain, no shortness of breath, no recent fevers, no congestion, no headaches, no abdominal pain, no nausea, vomiting or dizziness. The patient is positive for anxiety, especially related to her current debility and medical situation. PAST MEDICAL HISTORY 1. Rheumatoid arthritis. 2. Coronary artery disease. 3. Atrial fibrillation. 4. Acid reflux/GERD. 5. History of breast cancer. 6. Hyperlipidemia. 7. History of CVA. 8. Depression. 9. Hypertension. 10.Migraine headaches. 11.Thyroid disorder. 12.Pancreatitis. 13.Previous radiation therapy with her breast cancer. 14.Seizures. PAST SURGICAL HISTORY 1. Recent left hip intertrochanteric fracture November 01. 2. Sinus surgery. 3. History of lysis of adhesions in her abdomen. 4. Hysterectomy. 5. Appendectomy. 6. Oral surgery for caps. 7. Sinus repair. ALLERGIES SULFA. MEDICATIONS Reported medications: 1. Robaxin. 2. Norvasc. 3. Klonopin. 4. Surfak. 5. Multivitamins. 6. Metoprolol. 7. Effexor. 8. Stanley. 9. Vitamin-D. 10.Nexium. 11.Eliquis. SOCIAL HISTORY Previous tobacco use in her younger years, quit approximately 20 years ago. Occasionally smokes marijuana and occasionally partakes in alcohol. None of these more so recently since her recent illnesses have occurred. REVIEW OF SYSTEMS A 12-point review was done. Positives noted for left hip pain and her anxiety. Other systems negative or unremarkable. PHYSICAL EXAMINATION VITAL SIGNS: Temperature 98.7, pulse 88, respiratory rate 18, blood pressure 141/85 and 137/79 when she first came to the ER. Pulse ox 97 on O2 at 2 liters nasal cannula. GENERAL: A slim but well-developed, well-nourished white female who looks younger than her stated age resting in the bed. HEENT: Atraumatic, normocephalic. PERRLA at 2 mm. Mucous membranes are pink and moist. NECK: Supple. CARDIOVASCULAR: Regular rate and rhythm. She has no edema and her pulses are intact. PULMONARY: Essentially clear anteriorly and posteriorly. No wheezes, rales or rhonchi. ABDOMEN: Flat, soft, nontender, nondistended. Active bowel sounds in all four quadrants. EXTREMITIES: She has some guarding to the left hip and left leg but she can move her feet and toes on command. Upper extremity strength is normal. She has no edema noted in the left hip. She has a left hip scar which appears to be well-healing without erythema or edema. She does have some mild tenderness on palpation which has improved with her pain management here at the hospital. NEUROLOGIC: Alert, oriented, anxious, mildly tearful. SKIN: [place], warm and dry. No rashes. LABORATORY WBC count 7.2, RBC 3.54, hemoglobin 11.3, hematocrit 33.6, platelet count 356, monocytes 10.6. ESR greater than 140. INR is 1.1. Sodium 137, potassium 3.8, chloride 101, carbon dioxide 25.7, amnion gap 10, BUN 16, creatinine 0.86, GFR 65, random glucose 101, lactic acid 0.7, alkaline phosphatase 131, C-reactive protein 0.69, total protein 7, albumin 3.3. IMAGING Lower extremity ultrasound: Normal exam. Pelvis: No acute abnormality. ASSESSMENT 1. Recent left hip fracture with surgical intervention. 2. Intractable pain. 3. Elevated sedimentation rate with possible inflammatory response. 4. Debility and immobility. 5. History of atrial fibrillation. 6. Hypertension. 7. Depression. PLAN 1. Our plan is to admit initially for observation. 2. Will monitor her vital signs q.4h., and p.r.n. as warranted. 3. Gentle hydration with IV fluids. 4. Reconcile her medications. 5. Pain management with morphine. 6. Tylenol p.r.n. for pain or temp. 7. Will consult the orthopedic surgeon, Dr. Hernandez, or one of his partners for their expert opinion. 8. Will monitor ECG. 9. Will keep an IV in place. 10.Currently the patient is n.p.o. and will remain on bedrest until physical therapy evaluates her. 11.The patient is currently full code, full aggressive care. 12.The patient's plan of care will be based on her findings during this hospital course. Dictated by: DORIE Cross MD BETHANY Torres/LEX /9:07 AM /12:55 PM
[2016-11-28] MEDS: ACETAMINOPHEN/HYDROcodone 325 MG/10 MG TAB PO PRN (13:06)
[2016-11-28] MEDS: DOCUSATE SODIUM 100 MG CAP PO SCH (21:00)
[2016-11-29] MEDS: ACETAMINOPHEN/HYDROcodone 325 MG/10 MG TAB PO PRN ×4 (00:10→13:08)
[2016-11-29] MEDS: SODIUM CHLOR 0.9% 1000 ML INJ 1,000 ML IV SCH ×2 (04:00→13:01)
[2016-11-29 06:20] VITALS: BP 139/76; PULSE 78; RESP 18; TEMP 98.1; O2SAT 97
[2016-11-29 07:25] VITALS: BP 134/60; PULSE 76; RESP 20; TEMP 98; O2SAT 96
--- NOTE | 2016-11-29 08:02 | HHI.PR ---
Subjective Remarks resting in bed alert, anxious mild debility related to recent hip fx , encouraged for PO hydration and protein, caloric needs no family present headache mild, resolved this am (Yin Garcia) Objective Objective Results - Vital Signs Date Time Temp Pulse Resp B/P Pulse Ox O2 Delivery O2 Flow Rate FiO2 11/29/16 07:25 98.0 76 20 134/60 96 11/29/16 06:20 98.1 78 18 139/76 97 11/29/16 05:05 21 11/28/16 20:06 98.1 78 18 133/78 97 11/28/16 16:08 95.9 72 16 127/69 100 11/28/16 12:05 95.7 69 16 135/74 100 11/28/16 10:45 18 11/28/16 10:15 96.1 78 18 134/80 94 (Yin Garcia) Result Diagram: 11/28/16 0426 11/28/16 0426 Other Results Last Impressions Lower Extremity Ultrasound 11/28/16311 Signed Impressions: Service Date/Time: Monday, November 28, 2016 03:28 - CONCLUSION: Normal examination. Sudarshan Raza Jr., MD Pelvis X-Ray 11/28/16309 Signed Impressions: Service Date/Time: Monday, November 28, 2016 04:39 - CONCLUSION: No acute abnormality. Sudarshan Raza Jr., MD Medications and IVs Active Medications Acetaminophen/ Hydrocodone Bitart ([place] 10-325 Mg) 1 tab Q4H PRN PO Last administered on 11/29/16 04:01; Admin Dose 1 TAB; Start 11/28/16 at 09:30 Amlodipine Besylate (Norvasc) 5 mg DAILY PO Last administered on 11/28/16 11:12 ; Admin Dose 5 MG; Start 11/28/16 at 09:30 Apixaban (Eliquis) 5 mg BID PO Last administered on 11/28/16 21:00; Admin Dose 5 MG; Start 11/28/16 at 09:30 Cholecalciferol (Vitamin D3) 5,000 units DAILY PO; Start 11/29/16 at 09:00 Clonazepam (KlonoPIN) 1 mg BID PO Last administered on 11/28/16 21:00; Admin Dose 1 MG; Start 11/28/16 at 09:30 Docusate Sodium (Colace) 100 mg BID PO Last administered on 11/28/16 21:00; Admin Dose 100 MG; Start 11/28/16 at 21:00 Levothyroxine Sodium (Synthroid) 112 mcg DAILY PO Last administered on 11/28/16 11:13; Admin Dose 112 MCG; Start 11/28/16 at 09:30 Methocarbamol (Robaxin) 750 mg QID PO Last administered on 11/28/16 21:01; Admin Dose 750 MG; Start 11/28/16 at 13:00 Metoprolol Tartrate (Lopressor) 25 mg BID PO Last administered on 11/28/16 21:01 ; Admin Dose 25 MG; Start 11/28/16 at 09:30 Multivitamins (Theragran) 1 tab DAILY PO; Start 11/29/16 at 09:00 Pantoprazole Sodium (Protonix) 40 mg DAILY PO Last administered on 11/28/16 11: 13; Admin Dose 40 MG; Start 11/28/16 at 10:00 Sodium Chloride (NS Flush) 2 ml BID IV FLUSH; Start 11/28/16 at 09:00 Thiamine HCl (Vitamin B1) 100 mg DAILY PO; Start 11/29/16 at 09:00 Venlafaxine HCl (Effexor Xr) 150 mg DAILY PO Last administered on 11/28/16 11:12 ; Admin Dose 150 MG; Start 11/28/16 at 09:30 (Yin Garcia) ROS General: Weakness (lt hip), Other (10 point ROS done, positives include generalized weakness related to the left hip, diarrhea occasional, but none today ,, of systems negative or unremarkable headache last night) GI: Diarrhea (occasional, but none today) Neuro/MS: Headache, Other (anxiety mild) (Yin Garcia) Physical Exam Physical Exam PHYSICAL EXAMINATION GENERAL: This is a well-developed, well-nourished female who appears to be in no acute distress resting in the bed She is alert and awake, mild anxiety which appears to be chronic nature HEAD: Normocephalic without any lesion or mass noted. Facial features appear symmetric. OROPHARYNGEAL: Oropharynx without erythema or edema. NECK: Supple. No nuchal rigidity or lymphadenopathy. Trachea midline without deviation. CARDIAC: Regular rhythm, regular rate, S1 and S2 are heard. Murmur none no gallops or rubs. LUNGS: Clear to auscultation bilaterally. No wheeze, no rhonchi No use of accessory muscles on inspiration or expiration. ABDOMEN: Soft, nontender, no organomegaly or masses. Bowel sounds are heard in all four quadrants. No rebound. No guarding. EXTREMITIES: No edema. Pulses equal bilateral. Well healing left hip scar, NEUROLOGICAL: Patient mood and affect appropriate, talkative communicative. Speech clear SKIN:Warm and moist Objective Remarks I'm resting fairly well. This pain medicine is helping my hip (Yin Garcia) A/P Assessment and Plan 1. Recent left hip fracture with surgical intervention. 2. Intractable pain. 3. Elevated sedimentation rate with possible inflammatory response. 4. Debility and immobility. 5. History of atrial fibrillation. 6. Hypertension. 7. Depression. PLAN 1. Recent left hip fracture incision is clean, no edema. Appreciate orthopedic consult. Case management consult for rehabilitation. Initially patient had increased alkaline phosphatase probable secondary to inflammation left hip. Encourage mobility, and ambulation. Discharge planning in process should be within the next day or 2. 2. Will monitor her vital signs q.4h., pain management which is effective 3. Gentle hydration with IV fluids, encouraged increase, protein calorie malnutrition, by mouth hydration as well as calories for her healing 4. Physical therapy to eval and treat, recommendations for appropriate rehabilitation for this patient appreciated 5. Currently patient's rhythm is regular, medical management 6. Hypertension, medical management blood pressure within normal ranges 7. History of depression, medical management, anxiety mild which appears to be acute on chronic. Does express the will to get better. Supportive care Labs reviewed hemoglobin stable at 11.3, white count normal at 7.3 no infectious process noted. Protein calorie malnutrition, mild, nutritional consult for increased protein and dietary recommendations to patient. (Yin Garcia) Assessment and Plan Patient seen and examined appears comfortable ok per ortho to discharge to short term rehab discussed with case management regarding rehab placement discussed with patient discussed with Yin OSHEA medically cleared for discharge. refuses to go to any other rehab except [facility] case management contacted the above rehab abd they will not accept patient, even if she pays. patient adamant about not going to any other rehab d/c to home with C discussed with case management discussed with patient (Lily Lux MD) Yin Garcia Nov 29, 2016 08:02 Lily Lux MD Nov 29, 2016 10:34
[2016-11-29] MEDS: SODIUM CHLORIDE 0.9% FLUSH 10 ML FLUSH IV FLUSH SCH (09:00)
[2016-11-29] MEDS ORDERED: CHOLECALCIFEROL (VIT D3) 5000 UNIT CAP PO SCH (09:00)
[2016-11-29] MEDS ORDERED: MULTIVITAMIN TAB PO SCH (09:00)
[2016-11-29] MEDS ORDERED: THIAMINE HCL 100 MG TAB PO SCH (09:00)
[2016-11-29] MEDS: VENLAFAXINE HCL XR 75 MG CAP PO SCH (09:07)
[2016-11-29] MEDS: APIXABAN 5 MG TABLET PO SCH (09:07)
[2016-11-29] MEDS: amLODIPine BESYLATE 5 MG TAB PO SCH (09:07)
[2016-11-29] MEDS: METHOCARBAMOL 500 MG TAB PO SCH ×2 (09:07→13:08)
[2016-11-29] MEDS: DOCUSATE SODIUM 100 MG CAP PO SCH (09:07)
[2016-11-29] MEDS: clonazePAM 1 MG TAB PO SCH (09:07)
[2016-11-29] MEDS: PANTOPRAZOLE SOD 40 MG DELAYED RELEASE TAB PO SCH (09:07)
[2016-11-29] MEDS: METOPROLOL TARTRATE 25 MG TAB PO SCH (09:07)
[2016-11-29] MEDS: LEVOTHYROXINE SODIUM 112 MCG TAB PO SCH (09:07)
[2016-11-29 11:36] VITALS: BP 130/59; PULSE 77; RESP 18; TEMP 97.3; O2SAT 94
--- NOTE | 2016-11-29 15:04 | HHI.FF ---
Face to Face Verification Diagnosis: (1) Fall (2) History of atrial fibrillation (3) Impaired mobility and activities of daily living (4) Closed left hip fracture (5) Intractable pain (6) Left hip pain Physical Therapy Order: Evaluate and Treat, Improve ambulation, Strength and gait training Occupational Therapy Order: Evaluate and Treat, Improve ADL, Gross motor coordination, Fine motor coordination Home Health Nursing Order: Nursing assessment with vital signs Padded Box Sewer Order: To Provide: Community services I have seen patient Sita Harvey on 11/29/16. My clinical findings support the need for the requested home health care services because: Ltd mobility - disease progression Deconditioned w/ increased weakness I certify that my clinical findings support that this patient is homebound because: Post-op weakness Unsteady gait/balance Yin Garcia Nov 29, 2016 15:04
[2016-11-29 16:18] VITALS: BP 118/64; PULSE 105; RESP 18; TEMP 97.6; O2SAT 96
--- NOTE | 2016-11-29 17:08 | HHI.DS ---
Discharge Summary Admission Date Nov 28, 2016 at 05:41 Admitting Diagnosis Intractable pain left hip Brief History This was an anxious 71-year-old female who had come into the hospital with increasing hip pain and problems with ambulating. According to the patient and the record she had a fall with a left hip intertrochanteric fracture on November 01, 2016. This fracture was acquired during her previous hospital stay in which she attempted suicide and was medically managed on the psychiatric unit for a period of time. The patient stated she did not go to rehab following her surgical procedure and her surgeon was Dr. Hernandez. She had not seen him as a follow-up since she went home. Currently the patient had been living alone with people coming in daily to assist her with her medical care. She stated that her left hip pain is 8/10, which was causing her severe problems with debility and ambulating. Otherwise the patient denied any chest pain, no shortness of breath, no recent fevers, no congestion, no headaches, no abdominal pain, no nausea, vomiting or dizziness. The patient was positive for anxiety, especially related to her current debility and medical situation. CBC/BMP: 11/28/16 0426 11/28/16 0426 Significant Findings Laboratory Tests Test 11/28/16 04:26 Red Blood Count 3.54 MIL/MM3 (4.00-5.30) Hemoglobin 11.3 GM/DL (11.6-15.3) Hematocrit 33.6 % (35.0-46.0) Monocytes (%) (Auto) 10.6 % (0.0-8.0) Erythrocyte Sedimentation Rate GREATER THAN 140 mm/hr (0-30) Prothrombin Time 11.9 SEC (9.8-11.6) Activated Partial 31.0 SEC Thromboplast Time (24.3-30.1) Estimat Glomerular Filtration 65 ML/MIN (>89) Rate Alkaline Phosphatase 131 U/L (45-117) C-Reactive Protein 0.69 MG/DL (0.00-0.30) Albumin 3.3 GM/DL (3.4-5.0) Imaging Last Impressions Lower Extremity Ultrasound 11/28/16311 Signed Impressions: Service Date/Time: Monday, November 28, 2016 03:28 - CONCLUSION: Normal examination. Sudarshan Raza Jr., MD Pelvis X-Ray 11/28/16309 Signed Impressions: Service Date/Time: Monday, November 28, 2016 04:39 - CONCLUSION: No acute abnormality. Sudarshan Raza Jr., MD PE at Discharge PHYSICAL EXAMINATION GENERAL: This was a well-developed, well-nourished female who appeared to be in no acute distress resting in the bed She was alert and awake, mild anxiety which appeared to be chronic nature HEAD: Normocephalic without any lesion or mass noted. Facial features appear symmetric. OROPHARYNGEAL: Oropharynx without erythema or edema. NECK: Supple. No nuchal rigidity or lymphadenopathy. Trachea midline without deviation. CARDIAC: Regular rhythm, regular rate, S1 and S2 are heard. Murmur none no gallops or rubs. LUNGS: Clear to auscultation bilaterally. No wheeze, no rhonchi No use of accessory muscles on inspiration or expiration. ABDOMEN: Soft, nontender, no organomegaly or masses. Bowel sounds are heard in all four quadrants. No rebound. No guarding. EXTREMITIES: No edema. Pulses equal bilateral. Well healing left hip scar, NEUROLOGICAL: Patient mood and affect appropriate, talkative communicative. Speech clear SKIN:Warm and moist Hospital Course These are the diagnoses that were used to treat this patient during this hospital stay in her plan of care. 1. Recent left hip fracture with surgical intervention. 2. Intractable pain. 3. Elevated sedimentation rate with possible inflammatory response. 4. Debility and immobility. 5. History of atrial fibrillation. 6. Hypertension. 7. Depression. PLAN 1. Recent left hip fracture incision is clean, no edema. Appreciate orthopedic consult. Or throat feels patient would benefit from a rehabilitation program to increase her mobility and ability to do her ADLs as well as ambulation. Case management consult for rehabilitation and customer assistant with a plan. Initially patient had increased alkaline phosphatase probable secondary to inflammation left hip. Encourage mobility, and ambulation. Discharge planning in process should be within the next day or 2. Her chief problem is debility. 2. We have monitor her vital signs q.4h., and given her pain management which is effective. Patient has had no fever no tachycardia or bradycardia, no respiratory distress blood pressure has been within normal ranges. 3. Gentle hydration with IV fluids, encouraged increase, protein calorie malnutrition, by mouth hydration as well as calories for her healing. Patient has improved her appetite during these last few days 4. Physical therapy to eval and treat, recommendations for appropriate rehabilitation for this patient appreciated 5. Currently patient's rhythm is regular, medical management with her current medications 6. Hypertension, medical management blood pressure within normal ranges with her current medications 7. History of depression, medical management, anxiety mild which appears to be acute on chronic. Does express the will to get better. Supportive care Labs reviewed hemoglobin stable at 11.3, white count normal at 7.3 no infectious process noted. All patient's labs were monitored and showed no signs of infection Protein calorie malnutrition, mild, nutritional consult for increased protein and dietary recommendations to patient. When pt. was seen today, she refused to go to any other rehab except [facility]. She is medically stable for discharge case management contacted the above rehab abd they will not accept patient, even if she pays. patient adamant about not going to any other rehab Patient will be d/c to home with [facility], since she is refusing any other options. [facility] RN she has no available beds for her. discussed with case management discussed with patient Pt Condition on Discharge: Stable Discharge Disposition: Disch w/ Home Health Serv Discharge Instructions DIET: Follow Instructions for: As Tolerated, No Restrictions Activities you can perform: Regular-No Restrictions, Weight Bearing as Madelyn Other Activity Instructions: ambulate with safety Continued Medications: Amlodipine (Norvasc) 5 Mg Tab 5 MG PO DAILY #30 Ref 1 TAB Apixaban (Eliquis) 5 Mg Tab 5 MG PO BID stroke #60 Ref 1 TAB Calcium Carbonate-Cholecalciferol (Oyster Shell Calcium/Vitamin D) 250-125 Mg- Unit Tab 250 MG PO TID Calcium Supplement #90 Ref 1 TAB Cholecalciferol (Vitamin D3) 5,000 Unit Cap 5000 UNITS PO DAILY Nutritional Supplement #60 Ref 1 CAP Clonazepam (Klonopin) 1 Mg Tab 1 MG PO BID #60 TAB Docusate Sodium (Dok) 100 Mg Cap 100 MG PO BID #60 Ref [address] (Nexium) 40 Mg Capdr 40 MG PO DAILY #30 Ref 1 CAP Hydrocodone-Acetaminophen ([place]) 10-325 Mg Tab 1 TAB PO Q4H PRN PAIN #120 Ref 0 TAB Levothyroxine (Levothyroxine) 112 Mcg Tab 112 MCG PO DAILY #30 Ref 1 TAB Methocarbamol (Robaxin) 750 Mg Tab 750 MG PO QID Pain #40 TAB Metoprolol Tartrate (Metoprolol Tartrate) 25 Mg Tab 25 MG PO BID #60 Ref 1 TAB Multiple Vitamin (Thera/Beta-Carotene) 1 Tab Tab 1 TAB PO DAILY #30 Ref 1 TAB Thiamine (Vitamin B-1) 100 Mg Tab 100 MG PO DAILY #30 Ref 1 TAB Venlafaxine ER 24 HR (Effexor XR 24 HR) 75 Mg Cap 150 MG PO DAILY #60 CAP Additional Information Return to PCP 1-2 weeks Ortho f/u 2 weeks. [facility] , [facility] Yin Garcia Nov 29, 2016 17:08
== END 2016-11-29 17:25 | disposition home or self-care (01) ==
LOC: NEPC 01:25 → NEDA 05:41 → NEPFCDU 09:41
PROVIDERS: ADMIT Internal Medicine; ATTEND Internal Medicine
DX: S72.142D Displaced intertrochanteric fracture of left femur, subsequent encounter for closed fracture with routine healing (principal); M25.552 Pain in left hip; M06.9 Rheumatoid arthritis, unspecified; K21.9 Gastro-esophageal reflux disease without esophagitis; I48.91 Unspecified atrial fibrillation; I25.10 Atherosclerotic heart disease of native coronary artery without angina pectoris; I10 Essential (primary) hypertension; F32.9 Major depressive disorder, single episode, unspecified; E78.5 Hyperlipidemia, unspecified; E03.9 Hypothyroidism, unspecified; Z86.73 Personal history of transient ischemic attack (TIA), and cerebral infarction without residual deficits; Z85.3 Personal history of malignant neoplasm of breast; F41.9 Anxiety disorder, unspecified; E78.00 Pure hypercholesterolemia, unspecified; H91.90 Unspecified hearing loss, unspecified ear; Z87.891 Personal history of nicotine dependence; Z88.2 Allergy status to sulfonamides; Z79.01 Long term (current) use of anticoagulants; R70.0 Elevated erythrocyte sedimentation rate; Z92.3 Personal history of irradiation; W19.XXXD Unspecified fall, subsequent encounter; E44.1 Mild protein-calorie malnutrition; Z68.23 Body mass index [BMI] 23.0-23.9, adult
CPT/HCPCS: 72170; 80053; 81001; 83605; 85025; 85610; 85652; 85730; 86140; 93971; 96360; 97110; 97116; 97162; 99285; G0378; G8987; G8988; J2270; J2405; J7030; J7040

== ENCOUNTER 2017-03-01 14:19 | Emergency (ER) | payer BC, MEDICARE ==
[~2017-03-01] VITALS: Ht 165.1 cm; Wt 65.0 kg
[2017-03-01 14:28] VITALS: BP 174/91; PULSE 108; RESP 18; TEMP 98.2; O2SAT 97
[2017-03-01 16:00] LABS: AUTOMATED NEUTROPHIL # 9.2 TH/MM3 (1.8-7.7); BASOPHIL % 0.2 % (0.0-2.0); HEMATOCRIT 38.2 % (35.0-46.0); HEMO FLAGS DIFF FINAL; LYMPHOCYTE # 1.1 TH/MM3 (1.0-4.8); MEAN CELL VOLUME 98.1 FL (80.0-100.0); MEAN CORPUSCULAR HEMOGLOBIN 33.2 PG (27.0-34.0); MEAN CORPUSCULAR HGB CONC 33.8 % (32.0-36.0); NEUT % 83.8 % (16.0-70.0); PLATELET COUNT 346 TH/MM3 (150-450); RED BLOOD COUNT 3.89 MIL/MM3 (4.00-5.30)
[2017-03-01 16:08] LABS: ALT (GPT) 14 U/L (10-53); ANION GAP 18 MEQ/L (5-15); AST (GOT) 30 U/L (15-37); BICARBONATE 17.5 MEQ/L (21.0-32.0); BLOOD UREA NITROGEN 13 MG/DL (7-18); CHLORIDE 100 MEQ/L (98-107); GLOMERULAR FILTRATION RATE 64 ML/MIN (>89); POTASSIUM 4.2 MEQ/L (3.5-5.1); SODIUM (NA) 135 MEQ/L (136-145)
[2017-03-01 16:11] LABS: ALKALINE PHOSPHATASE 111 U/L (45-117); TOTAL BILIRUBIN ADULT 0.8 MG/DL (0.2-1.0)
[2017-03-01] MEDS ORDERED: PROCHLORPERAZINE INJ 10 MG/2 ML VIAL IV PUSH ONE (16:15)
[2017-03-01] MEDS ORDERED: KETOROLAC TROMETHAMINE 30 MG/ML (IVP) VIAL IV PUSH ONE (16:15)
--- NOTE | 2017-03-01 16:21 | PD ---
HPI Chief Complaint: GI Complaint Time Seen by Provider: 16:17 Travel History International Travel<30 days: No Contact w/Intl Traveler<30days: No Traveled to known affect area: No History of Present Illness HPI Patient is a 71-year-old female presented to the emergency room for evaluation of left hip pain, nausea, vomiting. Patient states she fell 2 days ago, she reports starting to feel nauseated this morning at approximately 3 AM and vomited once. She states her pain is 8 out of 10, has been in bleeding with a walker and cane. She denies any head injury or loss of consciousness. Patient has not vomited since 3 AM this morning. She denies any abdominal pain, shortness of breath, fever, chills. PFSH Past Medical History Hx Anticoagulant Therapy: Yes (ASPIRIN) Arthritis: Yes Asthma: No Autoimmune Disease: Yes (RA) Anxiety: Yes Depression: Yes Heart Rhythm Problems: Yes (hx of A FIB) Cancer: Yes (LEFT BREAST CA) High Cholesterol: Yes Chemotherapy: No Chest Pain: No Congestive Heart Failure: No COPD: No Cerebrovascular Accident: Yes (2016) Coronary Artery Disease: Yes Diabetes: No Diminished Hearing: Yes Gastrointestinal Disorders: Yes (GASTRIC ULCERS) GERD: Yes Genitourinary: No Headaches: No Hiatal Hernia: No Heparin Induced Thrombocytopen: No Hypertension: Yes Immune Disorder: No Implanted Vascular Access Dvce: No Kidney Stones: No Musculoskeletal: Yes Neurologic: No Psychiatric: No Reproductive: No Respiratory: No Immunizations Current: Yes Migraines: Yes Pancreatitis: Yes Radiation Therapy: Yes Renal Failure: No Seizures: Yes (2) Sickle Cell Disease: No Sleep Apnea: No Thyroid Disease: Yes (hypothyroidism) Ulcer: Yes (peptic ulcers) ?: Not Menopausal: Yes : 2 Para: 1 Miscarriage: 1 Past Surgical History Abdominal Surgery: Yes (LYSIS OF ADHESIONS ) AICD: No Appendectomy: Yes Arteriovenous Shunt: No Body Medical Devices: L hip hardware in place Cardiac Surgery: No Ear Surgery: No Endocrine Surgery: No Eye Surgery: No Genitourinary Surgery: No Gynecologic Surgery: Yes (Hysterectomy) Hysterectomy: Yes (TOTAL) Insulin Pump: No Joint Replacement: No Neurologic Surgery: No Oral Surgery: Yes (caps) Pacemaker: No Thoracic Surgery: No Other Surgery: Yes (COLDWELL/SINUS REPAIR) Social History Alcohol Use: Yes ("DEPENDS ON THE DAY"- HX ETOH ABUSE) Tobacco Use: No (quit 20+ yrs ago smoked cigs) Substance Use: No Allergies-Medications (Allergen,Severity, Reaction): Coded Allergies: Sulfa (Verified Allergy, Intermediate, rash, 03/01/17) Reported Meds & Prescriptions Reported Meds & Active Scripts Active Robaxin (Methocarbamol) 750 Mg Tab 750 Mg PO QID Norvasc (Amlodipine Besylate) 5 Mg Tab 5 Mg PO DAILY Klonopin (Clonazepam) 1 Mg Tab 1 Mg PO BID Dok (Docusate Sodium) 100 Mg Cap 100 Mg PO BID Thera/Beta-Carotene (Multiple Vitamin) 1 Tab Tab 1 Tab PO DAILY Vitamin B-1 (Thiamine HCl) 100 Mg Tab 100 Mg PO DAILY Metoprolol Tartrate 25 Mg Tab 25 Mg PO BID Effexor XR 24 HR (Venlafaxine HCl) 75 Mg Cap 150 Mg PO DAILY [place] (Hydrocodone-Acetaminophen) 10-325 Mg Tab 1 Tab PO Q4H PRN Vitamin D3 (Cholecalciferol) 5,000 Unit Cap 5,000 Units PO DAILY Oyster Shell Calcium/Vitamin D (Calcium Carbonate-Cholecalciferol) 250-125 Mg- Unit Tab 250 Mg PO TID Levothyroxine (Levothyroxine Sodium) 112 Mcg Tab 112 Mcg PO DAILY Nexium (Esomeprazole DR) 40 Mg Capdr 40 Mg PO DAILY Eliquis (Apixaban) 5 Mg Tab 5 Mg PO BID Commode 3-in-1 (Device) 1 Mis Mis 1 Ea .ROUTE DIRECTED Wheelchair (Device) 1 Mis Mis 1 Ea .ROUTE DIRECTED Walker/Adult/Folding (Device) 1 Mis Mis 1 Ea .ROUTE DIRECTED Review of Systems Except as stated in HPI: all other systems reviewed are Neg HENT: No: Headaches Cardiovascular: No: Chest Pain or Discomfort Respiratory: No: Shortness of Breath Gastrointestinal: Positive: Nausea, Vomiting, No: Abdominal Pain Musculoskeletal: Positive: Pain Neurologic: No: Weakness, Focal Abnormalities Physical Exam Narrative GENERAL: Well-developed, well-nourished, alert elderly female. Resting mother' s anxious. Patient is seen and evaluated in the ambulance [facility]. SKIN: Focused skin assessment warm/dry. HEAD: Atraumatic. Normocephalic. EYES: Pupils equal and round. No scleral icterus. No injection or drainage. ENT: No nasal bleeding or discharge. Mucous membranes pink and moist. NECK: Trachea midline. No JVD. CARDIOVASCULAR: Regular rate and rhythm. No murmur appreciated. RESPIRATORY: No accessory muscle use. Clear to auscultation. Breath sounds equal bilaterally. GASTROINTESTINAL: Abdomen soft, non-tender, nondistended. Hepatic and splenic margins not palpable. MUSCULOSKELETAL: No obvious deformities. No clubbing. No cyanosis. No edema. Tenderness palpation lateral aspect of left hip. No obvious leg length discrepancy noted. Patient is neurovascularly intact. NEUROLOGICAL: Awake and alert. No obvious cranial nerve deficits. Motor grossly within normal limits. Normal speech. PSYCHIATRIC: Anxious mood and affect; insight and judgment normal. Data Data Last Documented VS Vital Signs Date Time Temp Pulse Resp B/P Pulse Ox O2 Delivery O2 Flow Rate FiO2 03/01/17 17:21 110 20 174/81 99 Room Air 03/01/17 14:28 98.2 Orders Complete Blood Count With Diff (03/01/17 15:27) Comprehensive Metabolic Panel (03/01/17 15:27) Iv Access Insert/Monitor (03/01/17 15:27) Hip, Uni(Ap&Lat) W Ap Pelvis (03/01/17 ) Prochlorperazine Inj (Compazine Inj) (03/01/17 16:15) Ketorolac Inj (Toradol Inj) (03/01/17 16:15) Lipase (03/01/17 15:37) Sodium Chlor 0.9% 1000 Ml Inj (Ns 1000 M (03/01/17 17:30) Acetaminophen (Tylenol) (03/01/17 17:45) Labs Laboratory Tests Test 03/01/17 15:37 White Blood Count 11.0 TH/MM3 Red Blood Count 3.89 MIL/MM3 Hemoglobin 12.9 GM/DL Hematocrit 38.2 % Mean Corpuscular Volume 98.1 FL Mean Corpuscular Hemoglobin 33.2 PG Mean Corpuscular Hemoglobin 33.8 % Concent Red Cell Distribution Width 15.0 % Platelet Count 346 TH/MM3 Mean Platelet Volume 6.9 FL Neutrophils (%) (Auto) 83.8 % Lymphocytes (%) (Auto) 10.0 % Monocytes (%) (Auto) 6.0 % Eosinophils (%) (Auto) 0.0 % Basophils (%) (Auto) 0.2 % Neutrophils # (Auto) 9.2 TH/MM3 Lymphocytes # (Auto) 1.1 TH/MM3 Monocytes # (Auto) 0.7 TH/MM3 Eosinophils # (Auto) 0.0 TH/MM3 Basophils # (Auto) 0.0 TH/MM3 CBC Comment DIFF FINAL Differential Comment Sodium Level 135 MEQ/L Potassium Level 4.2 MEQ/L Chloride Level 100 MEQ/L Carbon Dioxide Level 17.5 MEQ/L Anion Gap 18 MEQ/L Blood Urea Nitrogen 13 MG/DL Creatinine 0.88 MG/DL Estimat Glomerular Filtration 64 ML/MIN Rate Random Glucose 96 MG/DL Calcium Level 9.4 MG/DL Total Bilirubin 0.8 MG/DL Aspartate Amino Transf 30 U/L (AST/SGOT) Alanine Aminotransferase 14 U/L (ALT/SGPT) Alkaline Phosphatase 111 U/L Total Protein 7.6 GM/DL Albumin 3.7 GM/DL Lipase 409 U/L [facility] Medical Decision Making Medical Screen Exam Complete: Yes Emergency Medical Condition: Yes Medical Record Reviewed: Yes Interpretation(s) Last Impressions Hip and Pelvis X-Ray 03/01/17 0000 Signed Impressions: Service Date/Time: Wednesday, March 01, 2017 17:37 - CONCLUSION: 1. No new acute fracture or joint dislocation is seen. 2. No change with the previously noted internal fixation of the proximal left femur. Benedicto Raphael MD Laboratory Tests Test 03/01/17 15:37 White Blood Count 11.0 TH/MM3 Red Blood Count 3.89 MIL/MM3 Hemoglobin 12.9 GM/DL Hematocrit 38.2 % Mean Corpuscular Volume 98.1 FL Mean Corpuscular Hemoglobin 33.2 PG Mean Corpuscular Hemoglobin 33.8 % Concent Red Cell Distribution Width 15.0 % Platelet Count 346 TH/MM3 Mean Platelet Volume 6.9 FL Neutrophils (%) (Auto) 83.8 % Lymphocytes (%) (Auto) 10.0 % Monocytes (%) (Auto) 6.0 % Eosinophils (%) (Auto) 0.0 % Basophils (%) (Auto) 0.2 % Neutrophils # (Auto) 9.2 TH/MM3 Lymphocytes # (Auto) 1.1 TH/MM3 Monocytes # (Auto) 0.7 TH/MM3 Eosinophils # (Auto) 0.0 TH/MM3 Basophils # (Auto) 0.0 TH/MM3 CBC Comment DIFF FINAL Differential Comment Sodium Level 135 MEQ/L Potassium Level 4.2 MEQ/L Chloride Level 100 MEQ/L Carbon Dioxide Level 17.5 MEQ/L Anion Gap 18 MEQ/L Blood Urea Nitrogen 13 MG/DL Creatinine 0.88 MG/DL Estimat Glomerular Filtration 64 ML/MIN Rate Random Glucose 96 MG/DL Calcium Level 9.4 MG/DL Total Bilirubin 0.8 MG/DL Aspartate Amino Transf 30 U/L (AST/SGOT) Alanine Aminotransferase 14 U/L (ALT/SGPT) Alkaline Phosphatase 111 U/L Total Protein 7.6 GM/DL Albumin 3.7 GM/DL Lipase 409 U/L Vital Signs Date Time Temp Pulse Resp B/P Pulse Ox O2 Delivery O2 Flow Rate FiO2 03/01/17 17:21 110 20 174/81 99 Room Air 03/01/17 14:32 20 03/01/17 14:28 98.2 108 18 174/91 97 Vital Signs Date Time Temp Pulse Resp B/P Pulse Ox O2 Delivery O2 Flow Rate FiO2 03/01/17 14:32 20 03/01/17 14:28 98.2 108 18 174/91 97 Differential Diagnosis Fracture versus dislocation versus sprain versus strain versus malingering versus gastritis versus viral syndrome versus other Narrative Course Patient is a 71-year-old female that presented to emergency department for evaluation of left hip pain after an alleged fall 2 days ago. No obvious deformities noted on exam, patient is tender on the lateral aspect of her left hip. No leg length discrepancy noted. Imaging ordered, labs ordered due to patient complaining of nausea and vomiting. Will reassess. X-ray shows no acute fracture or abnormality. CBC is unremarkable Chemistry with no acute findings identified, lipase is 409. Patient has not complained of any further nausea or vomiting while in the emergency department. Patient is to be discharged home, she was reassured at this time that there were no acute findings. She is requesting Xanax 1 mg. She states that she takes this twice a day at home. She is encouraged to apply warm moist heat to the affected area on her hip, continue range of motion exercises, avoid exacerbating activities. She was advised to ambulate with her walker until her symptoms improved. She was also advised to follow-up with her primary doctor. She was encouraged to return to emergency department immediately for any new or worsening symptoms. She verbalized understanding, she states that she has no way to get home, when she gets home she has no way to get into her house because she left her keys there. The patient was initially evaluated she stated that she had a caregiver, now she stating that no one is around in order for her to get back into her house. Discussed with RN to notify case management. Diagnosis Primary Impression: Left hip pain Additional Impression: Anxiety Referrals: Primary Care Physician Patient Instructions: General Instructions, Hip Contusion (ED) Additional Instructions: Follow-up with your primary doctor Apply warm moist heat to affected area, continue range of motion exercises, avoid exacerbating activities Use your walker until your pain has improved to prevent falls. Continue your home medications as previously prescribed Return to emergency department for any new or worsening symptoms Med/Other Pt SpecificInfo: No Change to Meds Scripts Lidocaine (Lidoderm)5 % Adh..patch1 Patch TOPICAL DAILY PRN (PAIN SCALE 1 TO 10 ) #30 Prov:Sofia Russell 03/01/17 Disposition: 01 DISCHARGE HOME Condition: Stable Sofia Russell Mar 01, 2017 16:20
[2017-03-01 17:21] VITALS: BP 174/81; PULSE 110; RESP 20; O2SAT 99
[2017-03-01] MEDS ORDERED: SODIUM CHLOR 0.9% 1000 ML INJ 1,000 ML IV ONE (17:30)
[2017-03-01] MEDS ORDERED: ACETAMINOPHEN 500 MG CPLT PO ONE (17:45)
--- NOTE | 2017-03-01 17:45 | RADRPT ---
EXAM DATE/TIME: 03/01/2017 17:37 [facility] COMPARISON: HIP LEFT (AP&LAT 2/3VWS) W AP PELVIS, November 24, 2016, 9:21. INDICATIONS : Left hip pain post fall today. MEDICAL HISTORY : None. SURGICAL HISTORY : Left hip. ENCOUNTER: Initial ACUITY: 1 day PAIN SCORE: 10/10 LOCATION: Left hip. FINDINGS: Examination of the left hip was performed with AP Pelvis. The bony structures of the pelvis are gross ly intact. There is good alignment of the SI joints and pubic symphysis. There is evidence of previou s internal fixation of the left femur. No new fractures are demonstrated. There is no change compared to the study of 11/24/2016. The hardware remains intact.. CONCLUSION: 1. No new acute fracture or joint dislocation is seen. 2. No change with the previously noted internal fixation of the proximal left femur. Benedicto Raphael MD on March 01, 2017 at 17:42 Board Certified Radiologist. This report was verified electronically.
[2017-03-01] MEDS ORDERED: chlordiazePOXIDE 25 MG CAP PO STA (18:18)
[2017-03-01] MEDS ORDERED: LIDO5DIS5 TOPICAL (18:18)
[2017-03-01 18:53] VITALS: BP 165/89
--- NOTE | 2017-03-01 19:13 | PD ---
Data Data Last Documented VS Vital Signs Date Time Temp Pulse Resp B/P Pulse Ox O2 Delivery O2 Flow Rate FiO2 03/01/17 18:53 98 18 165/89 99 03/01/17 17:21 Room Air 03/01/17 14:28 98.2 Orders Complete Blood Count With Diff (03/01/17 15:27) Comprehensive Metabolic Panel (03/01/17 15:27) Iv Access Insert/Monitor (03/01/17 15:27) Hip, Uni(Ap&Lat) W Ap Pelvis (03/01/17 ) Prochlorperazine Inj (Compazine Inj) (03/01/17 16:15) Ketorolac Inj (Toradol Inj) (03/01/17 16:15) Lipase (03/01/17 15:37) Sodium Chlor 0.9% 1000 Ml Inj (Ns 1000 M (03/01/17 17:30) Acetaminophen (Tylenol) (03/01/17 17:45) Chlordiazepoxide (Librium) (03/01/17 18:18) Labs Laboratory Tests Test 03/01/17 15:37 White Blood Count 11.0 TH/MM3 Red Blood Count 3.89 MIL/MM3 Hemoglobin 12.9 GM/DL Hematocrit 38.2 % Mean Corpuscular Volume 98.1 FL Mean Corpuscular Hemoglobin 33.2 PG Mean Corpuscular Hemoglobin 33.8 % Concent Red Cell Distribution Width 15.0 % Platelet Count 346 TH/MM3 Mean Platelet Volume 6.9 FL Neutrophils (%) (Auto) 83.8 % Lymphocytes (%) (Auto) 10.0 % Monocytes (%) (Auto) 6.0 % Eosinophils (%) (Auto) 0.0 % Basophils (%) (Auto) 0.2 % Neutrophils # (Auto) 9.2 TH/MM3 Lymphocytes # (Auto) 1.1 TH/MM3 Monocytes # (Auto) 0.7 TH/MM3 Eosinophils # (Auto) 0.0 TH/MM3 Basophils # (Auto) 0.0 TH/MM3 CBC Comment DIFF FINAL Differential Comment Sodium Level 135 MEQ/L Potassium Level 4.2 MEQ/L Chloride Level 100 MEQ/L Carbon Dioxide Level 17.5 MEQ/L Anion Gap 18 MEQ/L Blood Urea Nitrogen 13 MG/DL Creatinine 0.88 MG/DL Estimat Glomerular Filtration 64 ML/MIN Rate Random Glucose 96 MG/DL Calcium Level 9.4 MG/DL Total Bilirubin 0.8 MG/DL Aspartate Amino Transf 30 U/L (AST/SGOT) Alanine Aminotransferase 14 U/L (ALT/SGPT) Alkaline Phosphatase 111 U/L Total Protein 7.6 GM/DL Albumin 3.7 GM/DL Lipase 409 U/L [facility] Supervised Visit with ALFREDA: Yes Narrative Course The history, exam, and medical decision-making in the associated mid-level provider note were completed with my assistance. I reviewed and agree with the findings presented. I attest that I had a [id number] encounter with the patient on the same day, and personally performed and documented my assessment and findings in the medical record. *My assessment and Findings: Is a 71-year-old woman who presents to the emergency department complaining of left hip pain. She's had ongoing for quite some time. She's had a previous fracture in that hip. She had chronic problems with it. She is an alcoholic and drinks daily she is a little bit withdrawal symptoms here. She's given some Librium. X-rays negative. Recommend outpatient follow-up. Diagnosis Primary Impression: Left hip pain Additional Impression: Anxiety Referrals: Primary Care Physician Patient Instructions: General Instructions, Hip Contusion (ED) Departure Forms: Tests/Procedures Additional Instruction: Follow-up with your primary doctor Apply warm moist heat to affected area, continue range of motion exercises, avoid exacerbating activities Use your walker until your pain has improved to prevent falls. Continue your home medications as previously prescribed Return to emergency department for any new or worsening symptoms Scripts Lidocaine (Lidoderm)5 % Adh..patch1 Patch TOPICAL DAILY PRN (PAIN SCALE 1 TO 10 ) #30 Prov:Sofia Russell 03/01/17 Disposition: 01 DISCHARGE HOME Condition: Stable Juan Arellano MD Mar 01, 2017 19:13
== END 2017-03-01 18:54 | disposition home or self-care (01) ==
LOC: NEPD 14:19
DX: M25.552 Pain in left hip (principal); F41.9 Anxiety disorder, unspecified; R11.2 Nausea with vomiting, unspecified; I48.91 Unspecified atrial fibrillation; Z79.82 Long term (current) use of aspirin; H91.90 Unspecified hearing loss, unspecified ear; I10 Essential (primary) hypertension; E03.9 Hypothyroidism, unspecified; E78.00 Pure hypercholesterolemia, unspecified; W19.XXXA Unspecified fall, initial encounter; Y93.9 Activity, unspecified; Y92.9 Unspecified place or not applicable
CPT/HCPCS: 73502; 80053; 83690; 85025; 96374; 96375; 99284; J0780; J1885; J7030

== ENCOUNTER 2017-05-04 05:49 | Inpatient (IN) | payer MEDICARE, BC ==
[2017-05-04] VITALS (11 sets, daily range): BP systolic 143–191; BP diastolic 73–92; PULSE 92–107; RESP 16–20; TEMP 97.8–98.8; O2SAT 95–98
[~2017-05-04] VITALS: Ht 167.6 cm; Wt 67.0 kg
[~2017-05-04 05:49] MED LIST changes: +LIDO5DIS5 TOPICAL
[2017-05-04] MEDS ORDERED: ONDANSETRON HCL 4 MG/2 ML VIAL IV ONE (06:15)
[2017-05-04] MEDS ORDERED: SODIUM CHLORID 0.9% 500 ML INJ 500 ML IV ONE (06:15)
[2017-05-04 06:44] LABS: AUTOMATED NEUTROPHIL # 4.5 TH/MM3 (1.8-7.7); BASOPHIL % 0.3 % (0.0-2.0); EOSINOPHIL % 0.1 % (0.0-4.0); HEMATOCRIT 38.3 % (35.0-46.0); HEMO FLAGS DIFF FINAL; LYMPH % 15.8 % (9.0-44.0); LYMPHOCYTE # 0.9 TH/MM3 (1.0-4.8); MEAN CELL VOLUME 96.1 FL (80.0-100.0); MEAN CORPUSCULAR HEMOGLOBIN 33.8 PG (27.0-34.0); MEAN CORPUSCULAR HGB CONC 35.2 % (32.0-36.0); MONO % 7.1 % (0.0-8.0); NEUT % 76.7 % (16.0-70.0); PLATELET COUNT 292 TH/MM3 (150-450); RED BLOOD COUNT 3.99 MIL/MM3 (4.00-5.30); RED CELL DISTRIBUTION WIDTH 14.6 % (11.6-17.2); WHITE BLOOD COUNT 5.9 TH/MM3 (4.0-11.0)
--- NOTE | 2017-05-04 07:07 | RADRPT ---
EXAM DATE/TIME: 05/04/2017 06:52 [facility] COMPARISON: CHEST SINGLE AP, October 31, 2016, 20:15. INDICATIONS : Vomiting, shortness of breath, tremors. MEDICAL HISTORY : Hypothyroidism. Hypertension. Pancreatitis. Left breast carcinoma. CAD. Afib.Gastric and peptic ulcer s. Lysis of adhesions. GERD. Arthritis. Substance use. Depression. Anxiety. SURGICAL HISTORY : Appendectomy. Hysterectomy. Radiation therapy. Blood transfusions. ENCOUNTER: Initial ACUITY: 1 day PAIN SCORE: 0/10 LOCATION: chest FINDINGS: No significant focal pleural or parenchymal opacities. Cardiac basal contours are within normal limit s. Bony thorax is intact. CONCLUSION: 1. No acute cardiac pulmonary disease. Gen Forde MD on May 04, 2017 at 7:04 Board Certified Radiologist. This report was verified electronically.
--- NOTE | 2017-05-04 07:17 | PD ---
HPI Chief Complaint: Abdominal Pain Time Seen by Provider: 05:52 Travel History International Travel<30 days: No Contact w/Intl Traveler<30days: No Traveled to known affect area: No History of Present Illness HPI The patient is a 71 year old female who presents to the [facility] emergency department with a history of wakening from sound sleep 2 hours prior to arrival with nausea, vomiting, and diarrhea. The patient reports that she's had vomiting approximately 3 times and diarrhea approximately 4 times prior to arrival. She reports that the stool is watery and brown. She denies having any mucus in her stool or blood in her stool. She denies having any blood in her emesis. She denies having any known sick contacts. She denies having any focal abdominal pain associated with this. On review of systems otherwise, the patient denies any recent known fevers, cough, congestion, neck pain, chest pain , shortness of breath, urinary symptoms, or neurologic symptoms. PFSH Past Medical History Narrative Medical The patient's past medical history is significant for rheumatoid arthritis, coronary artery disease, atrial fibrillation, acid reflux, history of breast cancer, hyperlipidemia, history of cerebrovascular accident, depression, hypertension, migraine headaches, hypothyroid disorder, history of pancreatitis , history of seizure disorder. Hx Anticoagulant Therapy: Yes (ASPIRIN) Arthritis: Yes Asthma: No Autoimmune Disease: Yes (RA) Anxiety: Yes Depression: Yes Heart Rhythm Problems: Yes (hx of A FIB) Cancer: Yes (LEFT BREAST CA) High Cholesterol: Yes Chemotherapy: No Chest Pain: No Congestive Heart Failure: No COPD: No Cerebrovascular Accident: Yes (2016) Coronary Artery Disease: Yes Diabetes: No Diminished Hearing: Yes Gastrointestinal Disorders: Yes (GASTRIC ULCERS) GERD: Yes Genitourinary: No Headaches: No Hiatal Hernia: No Heparin Induced Thrombocytopen: No Hypertension: Yes Immune Disorder: No Implanted Vascular Access Dvce: No Kidney Stones: No Musculoskeletal: Yes Neurologic: No Psychiatric: No Reproductive: No Respiratory: No Immunizations Current: Yes Migraines: Yes Pancreatitis: Yes Radiation Therapy: Yes Renal Failure: No Seizures: Yes (2) Sickle Cell Disease: No Sleep Apnea: No Thyroid Disease: Yes (hypothyroidism) Ulcer: Yes (peptic ulcers) Tetanus Vaccination: Unknown ?: Not Menopausal: Yes : 2 Para: 1 Miscarriage: 1 Past Surgical History Narrative Surgical The patient's past surgical history is significant for recent left hip intertrochanteric fracture repair on November 01, history of sinus surgery, history of lysis of adhesions in her abdomen, hysterectomy, appendectomy, oral surgery, sinus surgery. Abdominal Surgery: Yes (LYSIS OF ADHESIONS ) AICD: No Appendectomy: Yes Arteriovenous Shunt: No Body Medical Devices: L hip hardware in place Cardiac Surgery: No Cholecystectomy: Yes Ear Surgery: No Endocrine Surgery: No Eye Surgery: No Genitourinary Surgery: No Gynecologic Surgery: Yes (Hysterectomy) Hysterectomy: Yes (TOTAL) Insulin Pump: No Joint Replacement: No Neurologic Surgery: No Oral Surgery: Yes (caps) Pacemaker: No Thoracic Surgery: No Other Surgery: Yes (COLDWELL/SINUS REPAIR) Social History Alcohol Use: Yes Tobacco Use: No Substance Use: No Allergies-Medications (Allergen,Severity, Reaction): Coded Allergies: Sulfa (Sulfonamide Antibiotics) (Unverified Allergy, Intermediate, rash, ) Reported Meds & Prescriptions Reported Meds & Active Scripts Active Lidoderm (Lidocaine) 5 % Adh..patch 1 Patch TOPICAL DAILY PRN Robaxin (Methocarbamol) 750 Mg Tab 750 Mg PO QID Norvasc (Amlodipine Besylate) 5 Mg Tab 5 Mg PO DAILY Klonopin (Clonazepam) 1 Mg Tab 1 Mg PO BID Dok (Docusate Sodium) 100 Mg Cap 100 Mg PO BID Thera/Beta-Carotene (Multiple Vitamin) 1 Tab Tab 1 Tab PO DAILY Vitamin B-1 (Thiamine HCl) 100 Mg Tab 100 Mg PO DAILY Metoprolol Tartrate 25 Mg Tab 25 Mg PO BID Effexor XR 24 HR (Venlafaxine HCl) 75 Mg Cap 150 Mg PO DAILY [place] (Hydrocodone-Acetaminophen) 10-325 Mg Tab 1 Tab PO Q4H PRN Vitamin D3 (Cholecalciferol) 5,000 Unit Cap 5,000 Units PO DAILY Oyster Shell Calcium/Vitamin D (Calcium Carbonate-Cholecalciferol) 250-125 Mg- Unit Tab 250 Mg PO TID Levothyroxine (Levothyroxine Sodium) 112 Mcg Tab 112 Mcg PO DAILY Nexium (Esomeprazole DR) 40 Mg Capdr 40 Mg PO DAILY Eliquis (Apixaban) 5 Mg Tab 5 Mg PO BID Commode 3-in-1 (Device) 1 Mis Mis 1 Ea .ROUTE DIRECTED Wheelchair (Device) 1 Mis Mis 1 Ea .ROUTE DIRECTED Walker/Adult/Folding (Device) 1 Mis Mis 1 Ea .ROUTE DIRECTED Review of Systems Except as stated in HPI: all other systems reviewed are Neg General / Constitutional: No: Fever Eyes: No: Visual changes HENT: No: Headaches Cardiovascular: No: Chest Pain or Discomfort Respiratory: No: Shortness of Breath Gastrointestinal: Positive: Nausea, Vomiting, Diarrhea, Changes in Bowel Habits , No: Abdominal Pain, Hematemesis, Hematochezia, Indigestion, Loss of Appetite Genitourinary: No: Dysuria Musculoskeletal: Positive: Myalgias, Arthralgias, Pain Skin: No Rash Neurologic: No: Weakness Psychiatric: No: Depression Endocrine: No: Polydipsia Hematologic/Lymphatic: No: Easy Bruising Physical Exam Narrative General: The patient is a well-developed well-nourished female, uncomfortable appearing on arrival, intermittently dry heaving.. Head and Neck exam: Head is normocephalic atraumatic. Eyes: EOMI, pupils are equal round and reactive to light. Nose: Midline septum with pink mucous membranes Mouth: Dentition unremarkable. Moist mucus membranes. Posterior oropharynx is not erythematous. No tonsillar hypertrophy. Uvula midline. Airway patent. Neck: No palpable lymphadenopathy. No nuchal rigidity. No thyromegaly. Cardiovascular: Sinus tachycardia in the low 100s without murmurs, gallops, or rubs. No pulse deficit to the extremities and simultaneous auscultation and palpation of her radial artery. Lungs: Clear to auscultation bilaterally. No wheezes, rhonchi, or rales. Abdomen: Soft, without tenderness to palpation in all 4 quadrants of the abdomen. No guarding, rebound, or rigidity. Normal bowel sounds are audible. No tenderness on palpation of McBurney's point. Negative Thomas's sign. Extremities: No clubbing, cyanosis, or edema. 2+ pulses in all 4 extremities. Back: No spinous process tenderness to palpation. Left-sided CVA tenderness on palpation. Neurologic Exam: Grossly nonfocal. Skin Exam: No rash noted. Intact skin that is warm and dry. Data Data Last Documented VS Vital Signs Date Time Temp Pulse Resp B/P (MAP) Pulse Ox O2 Delivery O2 Flow Rate FiO2 05/04/17 06:39 98 Room Air 05/04/17 06:06 98.5 101 16 Orders Orders Electrocardiogram (9/7/17 06:03) Complete Blood Count With Diff (05/04/17 06:03) Comprehensive Metabolic Panel (05/04/17 06:03) Troponin I (05/04/17 06:03) Prothrombin Time / Inr (Pt) (05/04/17 06:03) Act Partial Throm Time (Ptt) (05/04/17 06:03) Lipase (05/04/17 06:03) Urinalysis - C+S If Indicated (05/04/17 06:03) Magnesium (Mg) (05/04/17 06:03) Chest, Single Ap (05/04/17 06:03) Iv Access Insert/Monitor (05/04/17 06:03) Ecg Monitoring (05/04/17 06:03) Oximetry (05/04/17 06:03) Sodium Chlorid 0.9% 500 Ml Inj (Ns 500 M (05/04/17 06:15) Ondansetron Inj (Zofran Inj) (05/04/17 06:15) Lactic Acid Sepsis Protocol (05/04/17 06:03) Blood Culture (05/04/17 06:03) Labs Laboratory Tests Test 05/04/17 06:25 White Blood Count 5.9 TH/MM3 Red Blood Count 3.99 MIL/MM3 Hemoglobin 13.5 GM/DL Hematocrit 38.3 % Mean Corpuscular Volume 96.1 FL Mean Corpuscular Hemoglobin 33.8 PG Mean Corpuscular Hemoglobin Concent 35.2 % Red Cell Distribution Width 14.6 % Platelet Count 292 TH/MM3 Mean Platelet Volume 7.0 FL Neutrophils (%) (Auto) 76.7 % Lymphocytes (%) (Auto) 15.8 % Monocytes (%) (Auto) 7.1 % Eosinophils (%) (Auto) 0.1 % Basophils (%) (Auto) 0.3 % Neutrophils # (Auto) 4.5 TH/MM3 Lymphocytes # (Auto) 0.9 TH/MM3 Monocytes # (Auto) 0.4 TH/MM3 Eosinophils # (Auto) 0.0 TH/MM3 Basophils # (Auto) 0.0 TH/MM3 CBC Comment DIFF FINAL Differential Comment Prothrombin Time 11.0 SEC Prothromb Time International Ratio 1.0 RATIO Activated Partial Thromboplast Time 29.0 SEC MDM Medical Decision Making Medical Screen Exam Complete: Yes Emergency Medical Condition: Yes Medical Record Reviewed: Yes Differential Diagnosis Viral versus bacterial gastroenteritis, versus electrolyte derangements, versus dehydration, versus pyelonephritis, versus sepsis Narrative Course During the course of the patients emergency department visit, the patients history, examination, and differential diagnosis were reviewed with the patient. The patient had IV access obtained and blood work sent for analysis. The patient states on a cardiac cath lab manager with oximetry and blood pressure monitoring. An ECG was done on arrival. The patient's ECG reveals a sinus rhythm, heart rate of 93, QRS duration is 77 ms, QTC 426 ms without any acute ST segment elevation. The patient's ECG evaluation is limited based on the patient's tremulousness. The patient was initially provided normal saline 500 mL bolus 1, Zofran 4 mg IV. The patients laboratory studies were reviewed and remarkable for a white count of 5.9, hemoglobin 13.5, platelets 292 with 76.7 neutrophils, lactic acid came back at 6.7. CMP is pending, lipase pending. PT 11, INR 1.0, PTT 29 Radiology studies were reviewed and remarkable for a chest x-ray that shows no acute cardiopulmonary disease. The patient's case will be checked out to the oncoming emergency department physician at the conclusion of my shift. The patient's CMP, lipase are currently pending. Given the patient's degree of lactic acidosis, the patient will likely be admitted to the hospital for continued evaluation and treatment. Blood cultures 2 have been sent. Given the fact that the patient's white blood cell count is 5.9 without a significant left shift, the patient's lactic acidosis could be related to dehydration. Diagnosis Primary Impression: Nausea, vomiting, and diarrhea Additional Impression: Lactic acidosis Admitting Information Admitting Physician Requests: Admit Meagan Jones MD May 04, 2017 07:17
[2017-05-04 07:33] LABS: ALKALINE PHOSPHATASE 99 U/L (45-117); ALT (GPT) 18 U/L (10-53); ANION GAP 21 MEQ/L (5-15); AST (GOT) 33 U/L (15-37); BICARBONATE 15.4 MEQ/L (21.0-32.0); BLOOD UREA NITROGEN 14 MG/DL (7-18); CHLORIDE 88 MEQ/L (98-107); GLOMERULAR FILTRATION RATE 71 ML/MIN (>89); MAGNESIUM 1.3 MG/DL (1.5-2.5); POTASSIUM 4.1 MEQ/L (3.5-5.1); TOTAL BILIRUBIN ADULT 0.8 MG/DL (0.2-1.0)
[2017-05-04 07:35] LABS: SODIUM (NA) 124 MEQ/L (136-145)
--- NOTE | 2017-05-04 07:45 | PD ---
Physical Exam Date Seen by Provider: May 04, 2017 Narrative GENERAL: SKIN: Warm and dry. HEAD: Atraumatic. Normocephalic. EYES: Pupils equal and round. No scleral icterus. No injection or drainage. ENT: No nasal bleeding or discharge. Mucous membranes pink and moist. NECK: Trachea midline. No JVD. CARDIOVASCULAR: Regular rate and rhythm. RESPIRATORY: No accessory muscle use. Clear to auscultation. Breath sounds equal bilaterally. GASTROINTESTINAL: Abdomen soft, non-tender, nondistended. HOWEVER HYPERACTIVE BOWEL SOUNDS MUSCULOSKELETAL: Extremities without clubbing, cyanosis, or edema. No obvious deformities. (HURTFUL ON LEFT HIP, RECENT H/O REPAIR) NEUROLOGICAL: Awake and alert. No obvious cranial nerve deficits. Motor grossly within normal limits. Five out of 5 muscle strength in the arms and legs. Normal speech. PSYCHIATRIC: Appropriate mood and affect; insight and judgment normal. Data Data Last Documented VS Vital Signs Date Time Temp Pulse Resp B/P (MAP) Pulse Ox O2 Delivery O2 Flow Rate FiO2 05/04/17 07:30 98.8 107 16 171/79 (109) 98 Room Air Orders Orders Electrocardiogram (05/04/17 06:03) Complete Blood Count With Diff (05/04/17 06:03) Comprehensive Metabolic Panel (05/04/17 06:03) Troponin I (05/04/17 06:03) Prothrombin Time / Inr (Pt) (05/04/17 06:03) Act Partial Throm Time (Ptt) (05/04/17 06:03) Lipase (05/04/17 06:03) Urinalysis - C+S If Indicated (05/04/17 06:03) Magnesium (Mg) (05/04/17 06:03) Chest, Single Ap (05/04/17 06:03) Iv Access Insert/Monitor (05/04/17 06:03) Ecg Monitoring (05/04/17 06:03) Oximetry (05/04/17 06:03) Sodium Chlorid 0.9% 500 Ml Inj (Ns 500 M (05/04/17 06:15) Ondansetron Inj (Zofran Inj) (05/04/17 06:15) Lactic Acid Sepsis Protocol (05/04/17 06:03) Blood Culture (05/04/17 06:03) Ct Abd/Pel W/O Iv Contrast (05/04/17 07:34) Sodium Chlor 0.9% 1000 Ml Inj (Ns 1000 M (05/04/17 07:47) Hydromorphone Pf Inj (Dilaudid Pf Inj) (05/04/17 08:00) Metronidazole (Flagyl) (05/04/17 08:00) Labs Laboratory Tests Test 05/04/17 06:25 White Blood Count 5.9 TH/MM3 Red Blood Count 3.99 MIL/MM3 Hemoglobin 13.5 GM/DL Hematocrit 38.3 % Mean Corpuscular Volume 96.1 FL Mean Corpuscular Hemoglobin 33.8 PG Mean Corpuscular Hemoglobin Concent 35.2 % Red Cell Distribution Width 14.6 % Platelet Count 292 TH/MM3 Mean Platelet Volume 7.0 FL Neutrophils (%) (Auto) 76.7 % Lymphocytes (%) (Auto) 15.8 % Monocytes (%) (Auto) 7.1 % Eosinophils (%) (Auto) 0.1 % Basophils (%) (Auto) 0.3 % Neutrophils # (Auto) 4.5 TH/MM3 Lymphocytes # (Auto) 0.9 TH/MM3 Monocytes # (Auto) 0.4 TH/MM3 Eosinophils # (Auto) 0.0 TH/MM3 Basophils # (Auto) 0.0 TH/MM3 CBC Comment DIFF FINAL Differential Comment Prothrombin Time 11.0 SEC Prothromb Time International Ratio 1.0 RATIO Activated Partial Thromboplast Time 29.0 SEC Blood Urea Nitrogen 14 MG/DL Creatinine 0.80 MG/DL Random Glucose 66 MG/DL Total Protein 7.9 GM/DL Albumin 3.7 GM/DL Calcium Level 8.7 MG/DL Magnesium Level 1.3 MG/DL Alkaline Phosphatase 99 U/L Aspartate Amino Transf (AST/SGOT) 33 U/L Alanine Aminotransferase (ALT/SGPT) 18 U/L Total Bilirubin 0.8 MG/DL Sodium Level 124 MEQ/L Potassium Level 4.1 MEQ/L Chloride Level 88 MEQ/L Carbon Dioxide Level 15.4 MEQ/L Anion Gap 21 MEQ/L Estimat Glomerular Filtration Rate 71 ML/MIN Lactic Acid Level 6.7 mmol/L Troponin I LESS THAN 0.02 NG/ML Lipase 438 U/L [facility] Medical Record Reviewed: Yes Supervised Visit with ALFREDA: No Differential Diagnosis BACTERIAL V VIRAL ENTERITIS V ABNL LABS V UTI Critical Care Narrative CRITICAL CARE NOTE: With evaluation of the patient, labs, EKG, receipt of radiologic studies, administration of medications, reevaluation the patient and discussion of the patient with the admitting physicians, the total critical care time was [45] minutes. Time to perform other separately billable procedures was not included in the critical care time. Diagnosis Primary Impression: Nausea, vomiting, and diarrhea Additional Impressions: Lactic acidosis Metabolic acidosis, increased anion gap HYPONATREMIA Von Dimas MD May 04, 2017 07:45
[2017-05-04] MEDS ORDERED: SODIUM CHLOR 0.9% 1000 ML INJ 1,000 ML IV SCH ×2 (07:47→11:31)
[2017-05-04] MEDS ORDERED: metroNIDAZOLE 500 MG TAB PO ONE (08:00)
[2017-05-04] MEDS ORDERED: HYDROmorphone HCL PF 1 MG/ML VIAL IVS ONE (08:00)
[2017-05-04 08:29] LABS: BLOOD, URINE TRACE (NEG); COMMENT (UR) CATH-CULT NOT IND; CULTURE IF INDICATED CATH CULTURE NOT IND; GLUCOSE,URINE NEG (NEG); KETONE, URINE 40 mg/dL (NEG); NITRITE,URINE NEG (NEG); PH, URINE 5.5 (5.0-8.5); URINE COLOR YELLOW (YELLW/STRAW)
[2017-05-04] MEDS ORDERED: ONDANSETRON HCL 4 MG/2 ML VIAL IV PUSH ONE ×2 (08:30→11:30)
[2017-05-04 08:37] LABS: LACTIC ACID GHOST NOT REPORTABLE
--- NOTE | 2017-05-04 09:30 | RADRPT ---
EXAM DATE/TIME: 05/04/2017 08:33 [facility] COMPARISON: MRCP W & W/O CONTRAST, May 20, 2016, 11:20. CT ABDOMEN & PELVIS W/O CONTRAST, May 18 16, 17:19. INDICATIONS : Patient vomiting ORAL CONTRAST: No oral contrast ingested. RADIATION DOSE: 13.28 CTDIvol (mGy) MEDICAL HISTORY : Hypertension. Cardiovascular disease SURGICAL HISTORY : Appendectomy. Cholecystectomy. Hysterectomy. ENCOUNTER: Initial ACUITY: 1 day PAIN SCALE: 6/10 LOCATION: Left hip TECHNIQUE: Volumetric scanning of the abdomen and pelvis was performed. Using automated exposure control and ad justment of the mA and/or kV according to patient size, radiation dose was kept as low as reasonably achievable to obtain optimal diagnostic quality images. DICOM format image data is available electro nically for review and comparison. FINDINGS: Evaluation of the solid organs of the abdomen is limited by the lack of intravenous contrast. Scatte red calcifications are again noted within the pancreas consistent with chronic calcific pancreatitis. The main pancreatic duct remains dilated throughout its course. Underlying mass within the region of the head of the pancreas cannot be ruled out on the basis of this unenhanced examination. The fat plane between the pancreatic head and duodenum is no longer present. Again, the pancreatic head is prominent is size. Cholelithiasis is noted. Scattered low density lesions are again noted within th e liver and are unchanged consistent with hepatic cysts. There are multiple simple cysts within both kidneys. Hyper dense nodules are noted within both kidneys also consistent with possible hyper dens e cysts. Small solid lesions cannot be ruled on the basis of this examination. No hydronephrosis is noted. The spleen contains multiple punctate calcifications consistent with granulomatous disease. The adrenal glands are normal bilaterally. The abdominal aorta is calcified but is not aneurysmally dilated. The inferior vena cava is normal. There is no paraaortic, retroperitoneal or mesenteric l ymphadenopathy. Uncomplicated colonic diverticulosis is noted. No acute diverticulitis is noted. n o bowel obstruction is noted. Degenerative changes and scoliosis of the thoracolumbar spine are note d. Fibrotic scarring is noted within the right posterior lung base. No ascites is noted. The patie nt is status post hysterectomy. The urinary bladder is non-distended and its evaluation. Hardware i s noted within the left proximal femur. CONCLUSION: 1. No significant change in the appearance of the pancreas consistent with chronic calcific pancreat itis. Underlying pancreatic head mass cannot be ruled out on the basis of this unenhanced evaluation . The fat plane between the pancreatic head and duodenum is no longer present. 2. Cholelithiasis. 3. Stable multiple hepatic cysts. 4. Multiple bilateral renal cysts. 5. Multiple hyper dense nodules within both kidneys consistent with hyper dense cysts or possible sm all solid lesions. These are stable compared to the previous examination. 6. Uncomplicated colonic diverticulosis. 7. Degenerative changes and scoliosis of the thoracolumbar spine. 8. Granulomatous calcifications within the spleen. 9. Fibrotic scarring within the right posterior lung base. Trey Quiroga MD on May 04, 2017 at 8:58 Board Certified Radiologist. This report was verified electronically.
[2017-05-04] MEDS ORDERED: NALOXONE HCL 0.4 MG/ML AMP IV PRN (11:45)
[2017-05-04] MEDS ORDERED: BISACODYL 10 MG SUPP RECTAL PRN (11:45)
[2017-05-04] MEDS ORDERED: SODIUM CHLORIDE 0.9% FLUSH 10 ML FLUSH IV FLUSH PRN (11:45)
[2017-05-04] MEDS ORDERED: LACTULOSE SYRUP 20 GM/30 ML CUP PO PRN (11:45)
[2017-05-04] MEDS ORDERED: MAGNESIUM HYDROXIDE SUSP 30 ML CUP PO PRN (11:45)
[2017-05-04] MEDS ORDERED: SENNOSIDES 8.6 MG TAB PO PRN (11:45)
[2017-05-04] MEDS ORDERED: ACETAMINOPHEN 325 MG TAB PO PRN ×2 (11:45)
--- NOTE | 2017-05-04 12:44 | EKG ---
Date Performed: 05/04/2017 Time Performed: 06:36:58 PTAGE: 71 years EKG: Sinus rhythm MINIMAL ST DEPRESSION BORDERLINE ECG PREVIOUS TRACING : 11/01/2016 10.25 DOCTOR: Emmett Deleon Interpretating Date/Time 05/04/2017 12:42:04
[2017-05-04] MEDS ORDERED: LIDOCAINE HCL 5% PATCH T-DERMAL PRN (13:45)
[2017-05-04] MEDS: metroNIDAZOLE 500 MG TAB PO SCH ×2 (15:29→22:17)
[2017-05-04] MEDS: ONDANSETRON HCL 4 MG/2 ML VIAL IVP PRN (15:30)
--- NOTE | 2017-05-04 15:53 | HHI.HP ---
[facility] Service [facility] Primary Care Physician Maxi Branch MD Admission Diagnosis ENTERITIS, LACTIC ACIDOSIS,HYPONATREMIA Diagnoses: Chief Complaint: nausea, vomiting, diarrhea Travel History International Travel<30 Days: No Contact w/Intl Traveler <30 Da: No Traveled to Known Affected Are: No History of Present Illness This is a 71-year-old female known to our services from frequent admissions. Patient with significant past medical history of recent TIA August 2016, A. fib in the past, alcohol abuse, hypertension, hypothyroid, depression. Patient presented to the emergency room with complaint of nausea vomiting and diarrhea that has been ongoing for a few days. Complains of diffuse abdominal tenderness , she thinks is from the retching. She's had liquid stools, denies any recent antibiotic use. Indicates stools are watery and brown, no blood. No hematemesis. Has not been eating very much. Has had subjective fevers, no chills. Patient is not a very tremulous, anxious. Indicates that she still drinks approximately 3-4 Garrett Moreau every day. Her last drink was about 3 days ago which she stopped when she started feeling sick. Denies prior withdrawal symptoms. Denies any sick contacts. In the emergency room, patient was evaluated. CBC was essentially unremarkable. A&P remarkable for hyponatremia, sodium 124, carbon dioxide 15.4, lactic acidosis 6.7, glucose 66, TC 1.3. Lipase 438. Patient endorses that she's felt more depressed but denies suicidal ideation. She lost her last year and has been seen by psychiatry. Indicates she is compliant with medications. Has chronic left hip pain from surgery in October. Indicates she ambulates with a cane and a walker. Patient had imaging studies, no significant findings. She was given IV fluids and started on Flagyl. Stools for C. difficile are pending. Patient is admitted for further evaluation and treatment. Past Family Social History Past Medical History 1. Chronic pancreatitis. 2. Arthritis. 3. Anxiety. 4. Depression. 5. Atrial fibrillation history in the past. 6. History of left breast cancer. 7. Gastric ulcer. 8. GERD. 9. Hypertension. 10.History of fluid retention in the past. 11.Hypothyroidism. 12.History of lysis of adhesions. 13.Sinus surgery. 14. ETOH abuse 15. TIA Aug 2016 16. Recent psych admit 2016 17. Fall with left hip fracture October 2016. TIA/CVA Past Surgical History s/p IMN left hip 11/01 Facial surgery Hysterectomy sinus surgery Reported Medications Reported Meds & Active Scripts Active Lidoderm (Lidocaine) 5 % Adh..patch 1 Patch TOPICAL DAILY PRN Robaxin (Methocarbamol) 750 Mg Tab 750 Mg PO QID Norvasc (Amlodipine Besylate) 5 Mg Tab 5 Mg PO DAILY Klonopin (Clonazepam) 1 Mg Tab 1 Mg PO BID Dok (Docusate Sodium) 100 Mg Cap 100 Mg PO BID Thera/Beta-Carotene (Multiple Vitamin) 1 Tab Tab 1 Tab PO DAILY Vitamin B-1 (Thiamine HCl) 100 Mg Tab 100 Mg PO DAILY Metoprolol Tartrate 25 Mg Tab 25 Mg PO BID Effexor XR 24 HR (Venlafaxine HCl) 75 Mg Cap 150 Mg PO DAILY [place] (Hydrocodone-Acetaminophen) 10-325 Mg Tab 1 Tab PO Q4H PRN Vitamin D3 (Cholecalciferol) 5,000 Unit Cap 5,000 Units PO DAILY Oyster Shell Calcium/Vitamin D (Calcium Carbonate-Cholecalciferol) 250-125 Mg- Unit Tab 250 Mg PO TID Levothyroxine (Levothyroxine Sodium) 112 Mcg Tab 112 Mcg PO DAILY Nexium (Esomeprazole DR) 40 Mg Capdr 40 Mg PO DAILY Eliquis (Apixaban) 5 Mg Tab 5 Mg PO BID Commode 3-in-1 (Device) 1 Mis Mis 1 Ea .ROUTE DIRECTED Wheelchair (Device) 1 Mis Mis 1 Ea .ROUTE DIRECTED Walker/Adult/Folding (Device) 1 Mis Mis 1 Ea .ROUTE DIRECTED Allergies: Coded Allergies: Sulfa (Sulfonamide Antibiotics) (Unverified Allergy, Intermediate, rash, ) Active Ordered Medications Inpatient Medications Acetaminophen (Tylenol) 650 mg Q6H PRN PO PAIN SCALE 1 TO 2; Start 05/04/17 at 11:45 Acetaminophen/ Hydrocodone Bitart ([place] 10-325 Mg) 1 tab Q4H PRN PO PAIN 3-10 ; Start 05/04/17 at 13:45 Amlodipine Besylate (Norvasc) 5 mg DAILY PO ; Start 05/05/17 at 09:00 Apixaban (Eliquis) 5 mg BID PO ; Start 05/04/17 at 21:00 Bisacodyl (Dulcolax Supp) 10 mg DAILY PRN RECTAL SEVERE CONSITIPATION; Start at 11:45 Calcium/Vitamin D (Oscal-D 250-125) 250 mg TID PO ; Start 05/04/17 at 18:00 Chlordiazepoxide (Librium) 10 mg TID PRN PO WITHDRAWAL/ANXIETY ; Start 05/04/17 at 16:00; Status UNV Cholecalciferol (Vitamin D3) 5,000 units DAILY PO ; Start 05/05/17 at 09:00 Clonazepam (KlonoPIN) 1 mg BID PO ; Start 05/04/17 at 21:00 Docusate Sodium (Colace) 100 mg BID PO ; Start 05/04/17 at 21:00 Enalaprilat (Vasotec Inj) 1.25 mg Q6H PRN IV PUSH SBP>160, DBP>90; Start at 16:00; Status UNV Hydromorphone HCl (Dilaudid Pf Inj) 1 mg ONCE ONCE IVS Last administered on t 08:11; Start 05/04/17 at 08:00; Stop 05/04/17 at 08:01; Status DC Lactulose (Lactulose Liq) 30 ml DAILY PRN PO SEVERE CONSITIPATION; Start at 11:45 Levothyroxine Sodium (Synthroid) 112 mcg DAILY@0600 PO ; Start 05/05/17 at 06:00 Lidocaine HCl (Lidoderm 5% Patch.12 Hr) 1 patch DAILY PRN T-DERMAL SEE LABEL COMMENTS; Start 05/04/17 at 13:45 Magnesium Hydroxide (Milk Of Magnesia Liq) 30 ml Q12H PRN PO MILD - MODERATE CONSTIPATION; Start 05/04/17 at 11:45 Magnesium Sulfate/ Dextrose 100 ml @ 100 mls/hr Q1H IV ; Start 05/04/17 at 16:00 ; Stop 05/04/17 at 17:59; Status UNV Methocarbamol (Robaxin) 750 mg QID PO ; Start 05/04/17 at 18:00 Metoprolol Tartrate (Lopressor) 25 mg BID PO ; Start 05/04/17 at 21:00 Metronidazole (Flagyl) 500 mg Q8HR PO Last administered on 05/04/17t 15:29; Start 05/04/17 at 16:00 Multivitamins (Theragran) 1 tab DAILY PO ; Start 05/05/17 at 09:00 Naloxone HCl (Narcan Inj) 0.4 mg UNSCH PRN IV SEE LABEL COMMENTS; Start at 11:45 Ondansetron HCl (Zofran Inj) 4 mg Q6H PRN IVP NAUSEA OR VOMITING Last administered on 05/04/17t 15:30; Start 05/04/17 at 11:45 Pantoprazole Sodium (Protonix) 40 mg DAILY PO ; Start 05/05/17 at 09:00 Senna/Docusate Sodium (Olivia-Colace) 1 tab BID PO ; Start 05/04/17 at 21:00; Stop 05/04/17 at 21:00; Status DC Sennosides (Senokot) 17.2 mg Q12H PRN PO MODERATE - SEVERE CONSTIPATION; Start 05/04/17 at 11:45 Sodium Bicarbonate 50 meq/Sodium Chloride 1,050 ml @ 100 mls/hr [id number] IV ; Start 05/05/17 at 16:00 Sodium Chloride (NS Flush) 2 ml BID IV FLUSH ; Start 05/04/17 at 21:00 Thiamine HCl (Vitamin B1) 100 mg DAILY PO ; Start 05/04/17 at 09:00 Venlafaxine HCl (Effexor Xr) 150 mg DAILY PO ; Start 05/05/17 at 09:00 Family History Significant for cancer. Social History The patient does not smoke or do any drugs. She is . Her last November. She is still missing him. She is somewhat depressed but she denies any suicidal thoughts or ideation. She drink 3-4 Garrett Moreau every day. Has a daughter who lives in [facility]. Caregiver comes in a few hours every day. Physical Exam Vital Signs Vital Signs Date Time Temp Pulse Resp B/P (MAP) Pulse Ox O2 Delivery O2 Flow Rate FiO2 05/04/17 12:50 98.0 102 20 187/84 (118) 95 05/04/17 11:46 05/04/17 11:30 92 16 170/83 (112) 98 Room Air 05/04/17 08:41 18 05/04/17 07:30 98.8 107 16 171/79 (109) 98 Room Air 05/04/17 06:39 98 Room Air 05/04/17 06:06 98.5 101 16 175/89 (117) Room Air 05/04/17 05:56 104 17 165/89 (114) Physical Exam GENERAL: This is a well-nourished, well-developed patient,anxious, tremulous SKIN: No rashes, ecchymoses or lesions. Cool and dry. HEAD: Atraumatic. Normocephalic. No temporal or scalp tenderness. EYES: Pupils equal round and reactive. Extraocular motions intact. No scleral icterus. No injection or drainage. ENT: Nose without bleeding, purulent drainage or septal hematoma. Throat without erythema, tonsillar hypertrophy or exudate. Uvula midline. Airway patent. NECK: Trachea midline. No JVD or lymphadenopathy. Supple, nontender, no meningeal signs. CARDIOVASCULAR: Regular rate and rhythm without murmurs, gallops, or rubs. ST on monitor. RESPIRATORY: Clear to auscultation. Breath sounds equal bilaterally. No wheezes , rales, or rhonchi. GASTROINTESTINAL: Abdomen soft, diffuse tenderness, nondistended. No hepato- splenomegaly, or palpable masses. No guarding. MUSCULOSKELETAL: Extremities without clubbing, cyanosis, or edema. No joint tenderness, effusion, or edema noted. No calf tenderness. Negative Homans sign bilaterally. NEUROLOGICAL:Awake, oriented x 3. Tremulous. Following commands, tearful, depressed. No focal symptoms. Laboratory Laboratory Tests Test 05/04/17 06:25 05/04/17 07:45 05/04/17 09:09 White Blood Count 5.9 Red Blood Count 3.99 Hemoglobin 13.5 Hematocrit 38.3 Mean Corpuscular Volume 96.1 Mean Corpuscular Hemoglobin 33.8 Mean Corpuscular Hemoglobin Concent 35.2 Red Cell Distribution Width 14.6 Platelet Count 292 Mean Platelet Volume 7.0 Neutrophils (%) (Auto) 76.7 Lymphocytes (%) (Auto) 15.8 Monocytes (%) (Auto) 7.1 Eosinophils (%) (Auto) 0.1 Basophils (%) (Auto) 0.3 Neutrophils # (Auto) 4.5 Lymphocytes # (Auto) 0.9 Monocytes # (Auto) 0.4 Eosinophils # (Auto) 0.0 Basophils # (Auto) 0.0 CBC Comment DIFF FINAL Differential Comment Prothrombin Time 11.0 Prothromb Time International Ratio 1.0 Activated Partial Thromboplast Time 29.0 Blood Urea Nitrogen 14 Creatinine 0.80 Random Glucose 66 Total Protein 7.9 Albumin 3.7 Calcium Level 8.7 Magnesium Level 1.3 Alkaline Phosphatase 99 Aspartate Amino Transf (AST/SGOT) 33 Alanine Aminotransferase (ALT/SGPT) 18 Total Bilirubin 0.8 Sodium Level 124 Potassium Level 4.1 Chloride Level 88 Carbon Dioxide Level 15.4 Anion Gap 21 Estimat Glomerular Filtration Rate 71 Lactic Acid Level 6.7 3.3 Troponin I LESS THAN 0.02 Lipase 438 Urine Color YELLOW Urine Turbidity CLEAR Urine pH 5.5 Urine Specific [place] 1.012 Urine Protein 100 Urine Glucose (UA) NEG Urine Ketones 40 Urine Occult Blood TRACE Urine Nitrite NEG Urine Bilirubin NEG Urine Urobilinogen LESS THAN 2.0 Urine Leukocyte Esterase NEG Urine RBC 1 Urine Amorphous Sediment RARE Microscopic Urinalysis Comment CATH-CULT NOT IND Date/Time Source Procedure Growth Status 05/04/17 06:25 Blood Peripheral Aerobic Blood Culture Pending Received 05/04/17 06:25 Blood Peripheral Anaerobic Blood Culture Pending Received Result Diagram: 05/04/17 0605/04/17624 Imaging Last Impressions Chest X-Ray 05/04/17 0603 Signed Impressions: Service Date/Time: April 06:52 - CONCLUSION: 1. No acute cardiac pulmonary disease. MD Ministerio Mobley VTE Risk Assessment Ministerio VTE Risk Assessment: Mod/High Risk (score >= 2) Caprini Risk Assessment Model Point Value = 1 Point Value = 2 Point Value = 3 Point Value = 5 Age 41-60 Minor surgery BMI > 25 kg/m2 Swollen legs Varicose veins or History of unexplained or recurrent spontaneous Oral contraceptives or hormone replacement Sepsis (< 1 month) Serious lung disease, including pneumonia (< 1 month) Abnormal pulmonary function Acute myocardial infarction Congestive heart failure (< 1 month) History of inflammatory bowel disease Medical patient at bed rest Age 61-74 Arthroscopic surgery Major open surgery (> 45 min) Laparoscopic surgery (> 45 min) Malignancy Confined to bed (> 72 hours) Immobilizing plaster cast Central venous access Age >= 75 History of VTE Family history of VTE Factor V Leiden Prothrombin [id number] Lupus anticoagulant Anticardiolipin antibodies Elevated serum homocysteine Heparin-induced thrombocytopenia Other congenital or acquired thrombophilia Stroke (< 1 month) Elective arthroplasty Hip, pelvis, or leg fracture Acute spinal cord injury (< 1 month) Prophylaxis Regimen Total Risk Factor Score Risk Level Prophylaxis Regimen 0-1 Low Early ambulation 2 Moderate Order ONE of the following: *Sequential Compression Device (SCD) *Heparin 5000 units SQ BID 3-4 Higher Order ONE of the following medications: *Heparin 5000 units SQ TID *Enoxaparin/Lovenox 40 mg SQ daily (WT < 150 kg, CrCl > 30 mL/min) *Enoxaparin/Lovenox 30 mg SQ daily (WT < 150 kg, CrCl > 10-29 mL/min) *Enoxaparin/Lovenox 30 mg SQ BID (WT < 150 kg, CrCl > 30 mL/min) AND/OR *Sequential Compression Device (SCD) 5 or more Highest Order ONE of the following medications: *Heparin 5000 units SQ TID (Preferred with Epidurals) *Enoxaparin/Lovenox 40 mg SQ daily (WT < 150 kg, CrCl > 30 mL/min) *Enoxaparin/Lovenox 30 mg SQ daily (WT < 150 kg, CrCl > 10-29 mL/min) *Enoxaparin/Lovenox 30 mg SQ BID (WT < 150 kg, CrCl > 30 mL/min) AND *Sequential Compression Device (SCD) Assessment and Plan Problem List: (1) Nausea, vomiting, and diarrhea ICD Codes: R11.2 - Nausea with vomiting, unspecified; R19.7 - Diarrhea, unspecified Status: Acute (2) Metabolic acidosis, increased anion gap ICD Codes: E87.2 - Acidosis Status: Acute (3) Anxiety ICD Codes: F41.9 - Anxiety Status: Chronic (4) History of atrial fibrillation ICD Codes: Z86.79 - Personal history of other diseases of the circulatory system Status: Chronic (5) Hypothyroid ICD Codes: E03.9 - Hypothyroidism Status: Chronic (6) HTN (hypertension) ICD Codes: I10 - Essential (primary) hypertension Status: Chronic (7) Alcohol use ICD Codes: Z78.9 - Other specified health status Status: Chronic (8) Depression ICD Codes: F32.9 - Depression Status: Chronic (9) Adjustment disorder ICD Codes: F43.20 - Adjustment disorder, unspecified Status: Chronic (10) Tachycardia ICD Codes: R00.0 - Tachycardia, unspecified Status: Acute (11) Hx TIA/stroke w/o resid ICD Codes: Z86.73 - Personal history of transient ischemic attack (TIA), and cerebral infarction without residual deficits Status: Chronic (12) Hyponatremia ICD Codes: E87.1 - Hyponatremia Status: Acute (13) Elevated lipase ICD Codes: R74.8 - Abnormal levels of other serum enzymes Assessment and Plan Admit to 71-year-old female presented with N/V/D. Found dehydrated, lactic acidosis, hyponatremia. Poss gastroenteritis, N/V/D Lactic acidosis Hyponatremia -continue with sodium bicarb gtt -monitor and replace electrolytes. Replace Mag with 2 grams IVPB -BMP in am -Stool for cdiff pending -Clear liquid diet -Continue Flagyl 500 mg po q 8h EtOH abuse, patient indicates last drink was 3 days ago -continue Thiamine -Valium 10 mg po TID PRN Continue to monitor for withdrawal symptoms Left hip pain, chronic, hx left femur fracture in October with repair Continue with pain management -PT eval and treatment Depression, prior admission to psychiatric unit. Patient lost her last year and remains depressed. She has limited social support Denies suicidal ideation -continue home meds History recent TIA, on Eliquis -continue Eliquis History of paroxysmal A. fib -Continuous cardiac telemetry -continue Eliquis -Continue with beta alex Home medications reviewed, initiated as indicated Eliquis/SCD for DVT prophylaxis Plan of care has been discussed with the patient, attending and registered nurse. Further management of the patient will be dependent on the hospital course This patient was seen by myself and Dr. Chase, this H&P is written on his behalf Problem Qualifiers (1) Hypothyroid: Qualified Codes: E03.9 - Hypothyroidism, unspecified (2) HTN (hypertension): Qualified Codes: I10 - Essential (primary) hypertension (3) Depression: Qualified Codes: F32.9 - Major depressive disorder, single episode, unspecified (4) Adjustment disorder: Qualified Codes: F43.23 - Adjustment disorder with mixed anxiety and depressed mood Tita Ramsey May 04, 2017 15:53
[2017-05-04] MEDS ORDERED: ENALAPRILAT 1.25 MG/ML VIAL IV PUSH PRN (16:00)
[2017-05-04] MEDS: METHOCARBAMOL 500 MG TAB PO SCH ×2 (16:19→20:25)
[2017-05-04] MEDS: CALCIUM/VITAMIN D 250 MG/125 U TAB PO SCH (16:19)
[2017-05-04] MEDS: MAGNESIUM SULFATE 1 GM PREMIX 100 ML IV SCH ×2 (16:20→16:59)
[2017-05-04] MEDS: clonazePAM 1 MG TAB PO SCH (20:24)
[2017-05-04] MEDS: APIXABAN 5 MG TABLET PO SCH (20:25)
[2017-05-04] MEDS: DOCUSATE SODIUM 100 MG CAP PO SCH (20:25)
[2017-05-04] MEDS: METOPROLOL TARTRATE 25 MG TAB PO SCH (20:25)
[2017-05-04] MEDS: SODIUM CHLORIDE 0.9% FLUSH 10 ML FLUSH IV FLUSH SCH (20:26)
[2017-05-04] MEDS ORDERED: DOCUSATE SODIUM 50 MG/SENNA 8.6 MG TAB PO SCH (21:00)
[2017-05-05 01:15] VITALS: BP 133/72; PULSE 80; RESP 20; TEMP 98.4; O2SAT 95
[2017-05-05] MEDS: ONDANSETRON HCL 4 MG/2 ML VIAL IVP PRN (01:46)
[2017-05-05] MEDS: ACETAMINOPHEN/HYDROcodone 325 MG/10 MG TAB PO PRN ×4 (02:11→20:26)
[2017-05-05 04:00] VITALS: BP 143/70; PULSE 77; RESP 18; TEMP 98; O2SAT 94
[2017-05-05] MEDS: metroNIDAZOLE 500 MG TAB PO SCH ×3 (06:26→20:26)
[2017-05-05] MEDS: LEVOTHYROXINE SODIUM 112 MCG TAB PO SCH (06:26)
[2017-05-05 08:07] VITALS: BP 122/64; PULSE 70; RESP 19; TEMP 98.1; O2SAT 98
[2017-05-05] MEDS: METOPROLOL TARTRATE 25 MG TAB PO SCH ×2 (08:23→20:26)
[2017-05-05] MEDS: APIXABAN 5 MG TABLET PO SCH ×2 (08:24→20:26)
[2017-05-05] MEDS: THIAMINE HCL 100 MG TAB PO SCH ×2 (08:24→09:00)
[2017-05-05] MEDS: clonazePAM 1 MG TAB PO SCH ×2 (08:24→20:26)
[2017-05-05] MEDS: MULTIVITAMIN TAB PO SCH (08:24)
[2017-05-05] MEDS: CALCIUM/VITAMIN D 250 MG/125 U TAB PO SCH ×3 (08:25→17:53)
[2017-05-05] MEDS: DOCUSATE SODIUM 100 MG CAP PO SCH ×2 (08:25→20:25)
[2017-05-05] MEDS: METHOCARBAMOL 500 MG TAB PO SCH ×4 (08:26→20:26)
[2017-05-05] MEDS: amLODIPine BESYLATE 5 MG TAB PO SCH (08:26)
[2017-05-05] MEDS: PANTOPRAZOLE SOD 40 MG DELAYED RELEASE TAB PO SCH (08:26)
[2017-05-05] MEDS: VENLAFAXINE HCL XR 75 MG CAP PO SCH (08:26)
[2017-05-05] MEDS: CHOLECALCIFEROL (VIT D3) 5000 UNIT CAP PO SCH (09:00)
[2017-05-05] MEDS: SODIUM CHLORIDE 0.9% FLUSH 10 ML FLUSH IV FLUSH SCH ×2 (09:00→20:25)
--- NOTE | 2017-05-05 10:11 | HHI.PR ---
Subjective Remarks itching overnight, no rash no fever no longer tremulous feels better no more n/v no diarrhea tolerating clear liquid diet well. Objective Objective Results - Vital Signs Date Time Temp Pulse Resp B/P (MAP) Pulse Ox O2 Delivery O2 Flow Rate FiO2 05/05/17 09:34 18 05/05/17 08:07 98.1 70 19 122/64 (83) 98 05/05/17 04:00 Room Air 05/05/17 04:00 98.0 77 18 143/70 (94) 94 05/05/17 01:15 98.4 80 20 133/72 (92) 95 05/04/17 23:09 143/73 (96) 05/04/17 22:29 185/85 (118) 05/04/17 21:35 173/75 (107) 05/04/17 20:00 98.7 94 18 191/92 (125) 98 05/04/17 17:29 97.8 97 20 183/91 (121) 95 05/04/17 12:50 98.0 102 20 187/84 (118) 95 05/04/17 11:46 05/04/17 11:30 92 16 170/83 (112) 98 Room Air I/O 05/04/17 05/04/17 05/04/17 05/05/17 05/05/17 05/05/17 07:00 15:00 23:00 07:00 15:00 23:00 Intake Total 1500 ml 240 ml Output Total 500 ml Balance 1500 ml -260 ml Intake Oral 240 ml IV Total 1500 ml Output Urine Total 500 ml # Bowel Movements 0 Result Diagram: 05/04/1762405/04/1725 Imaging Last Impressions Chest X-Ray 05/04/17 0603 Signed Impressions: Service Date/Time: April 06:52 - CONCLUSION: 1. No acute cardiac pulmonary disease. Gen Forde MD Other Results Date/Time Source Procedure Growth Status 05/04/17 06:25 Blood Peripheral Aerobic Blood Culture Pending Received 05/04/17 06:25 Blood Peripheral Anaerobic Blood Culture Pending Received ROS General: Weakness HEENT: No: Sore Throat, Dysphagia Cardiac: No: Chest Pain, Edema, Palpitations Pulmonary: No: Cough, SOB, Wheezing GI: Diarrhea (none overnight), N/V (none overnight) /HEATING AND COOLING TECHNICIAN: No: Dysuria, Urgency Neuro/MS: Other (chronic hip pain ), No: Lightheaded, Confusion Psych: Anxiety (better ) Skin: Itching Physical Exam Physical Exam GENERAL: This is a well-nourished, well-developed patient,anxious, tremulous SKIN: No rashes, ecchymoses or lesions. Cool and dry. HEAD: Atraumatic. Normocephalic. No temporal or scalp tenderness. EYES: Pupils equal round and reactive. Extraocular motions intact. No scleral icterus. No injection or drainage. ENT: Nose without bleeding, purulent drainage or septal hematoma. Throat without erythema, tonsillar hypertrophy or exudate. Uvula midline. Airway patent. NECK: Trachea midline. No JVD or lymphadenopathy. Supple, nontender, no meningeal signs. CARDIOVASCULAR: Regular rate and rhythm without murmurs, gallops, or rubs. ST on monitor. RESPIRATORY: Clear to auscultation. Breath sounds equal bilaterally. No wheezes , rales, or rhonchi. GASTROINTESTINAL: Abdomen soft, diffuse tenderness, nondistended. No hepato- splenomegaly, or palpable masses. No guarding. MUSCULOSKELETAL: Extremities without clubbing, cyanosis, or edema. No joint tenderness, effusion, or edema noted. No calf tenderness. Negative Homans sign bilaterally. NEUROLOGICAL:Awake, oriented x 3. Tremulous. Following commands, tearful, depressed. No focal symptoms. Urinary Catheter: No Vascular Central Line Catheter: No A/P Diagnosis: (1) Nausea, vomiting, and diarrhea ICD Codes: R11.2 - Nausea with vomiting, unspecified; R19.7 - Diarrhea, unspecified Status: Acute (2) Metabolic acidosis, increased anion gap ICD Codes: E87.2 - Acidosis Status: Acute (3) Anxiety ICD Codes: F41.9 - Anxiety Status: Chronic (4) History of atrial fibrillation ICD Codes: Z86.79 - Personal history of other diseases of the circulatory system Status: Chronic (5) Hypothyroid ICD Codes: E03.9 - Hypothyroidism Status: Chronic (6) HTN (hypertension) ICD Codes: I10 - Essential (primary) hypertension Status: Chronic (7) Alcohol use ICD Codes: Z78.9 - Other specified health status Status: Chronic (8) Depression ICD Codes: F32.9 - Depression Status: Chronic (9) Adjustment disorder ICD Codes: F43.20 - Adjustment disorder, unspecified Status: Chronic (10) Tachycardia ICD Codes: R00.0 - Tachycardia, unspecified Status: Acute (11) Hx TIA/stroke w/o resid ICD Codes: Z86.73 - Personal history of transient ischemic attack (TIA), and cerebral infarction without residual deficits Status: Chronic (12) Hyponatremia ICD Codes: E87.1 - Hyponatremia Status: Acute (13) Elevated lipase ICD Codes: R74.8 - Abnormal levels of other serum enzymes Status: Acute Assessment and Plan 71-year-old female presented with N/V/D. Found dehydrated, lactic acidosis, hyponatremia. Poss gastroenteritis, N/V/D Lactic acidosis Hyponatremia -continue with sodium bicarb gtt -monitor and replace electrolytes. Replace Mag with 2 grams IVPB -BMP not done -Stool for cdiff pending -adv to soft diet -Continue Flagyl 500 mg po q 8h Itching etiology unclear, no rash noted. -Benadry PRN Elevated lipase, poss sec. N/V -lipase in am -doubtful that it's pancreatitis EtOH abuse, patient indicates last drink was 3 days ago -continue Thiamine -Valium 10 mg po TID PRN Continue to monitor for withdrawal symptoms Left hip pain, chronic, hx left femur fracture in October with repair Continue with pain management -PT eval and treatment Depression, prior admission to psychiatric unit. Patient lost her last year and remains depressed. She has limited social support Denies suicidal ideation -continue home meds History recent TIA, on Eliquis -continue Eliquis History of paroxysmal A. fib -Continuous cardiac telemetry -continue Eliquis -Continue with beta alex Labs not done Eliquis/SCD for DVT prophylaxis Improving, will have her work with PT labs in am D/W RN D/W Dr. Chase D/W pt. This patient was seen by myself and Dr. Chase, this note is written on his behalf Problem Qualifiers (1) Hypothyroid: Qualified Codes: E03.9 - Hypothyroidism, unspecified (2) HTN (hypertension): Qualified Codes: I10 - Essential (primary) hypertension (3) Depression: Qualified Codes: F32.9 - Major depressive disorder, single episode, unspecified (4) Adjustment disorder: Qualified Codes: F43.23 - Adjustment disorder with mixed anxiety and depressed mood Tita Ramsey May 05, 2017 10:11
[2017-05-05 12:08] VITALS: BP 126/62; PULSE 82; RESP 18; TEMP 98; O2SAT 97
[2017-05-05] MEDS: diphenhydrAMINE HCL 25 MG CAP PO PRN ×2 (12:48→20:26)
[2017-05-05 15:03] LABS: AUTOMATED NEUTROPHIL # 3.7 TH/MM3 (1.8-7.7); BASOPHIL % 0.5 % (0.0-2.0); EOSINOPHIL % 0.6 % (0.0-4.0); HEMATOCRIT 37.1 % (35.0-46.0); HEMO FLAGS DIFF FINAL; LYMPH % 27.9 % (9.0-44.0); LYMPHOCYTE # 1.9 TH/MM3 (1.0-4.8); MEAN CELL VOLUME 97.1 FL (80.0-100.0); MEAN CORPUSCULAR HEMOGLOBIN 32.9 PG (27.0-34.0); MEAN CORPUSCULAR HGB CONC 33.9 % (32.0-36.0); MONO % 15.3 % (0.0-8.0); NEUT % 55.7 % (16.0-70.0); PLATELET COUNT 269 TH/MM3 (150-450); RED BLOOD COUNT 3.82 MIL/MM3 (4.00-5.30); RED CELL DISTRIBUTION WIDTH 15.1 % (11.6-17.2); WHITE BLOOD COUNT 6.7 TH/MM3 (4.0-11.0)
[2017-05-05 15:18] LABS: BICARBONATE 25.3 MEQ/L (21.0-32.0); POTASSIUM 3.6 MEQ/L (3.5-5.1)
[2017-05-05] MEDS: SODIUM BICARBONATE 8.4% INJ 50 MEQ in SODIUM CHLOR 0.9% 1000 ML INJ 1,000 ML IV SCH (16:00)
[2017-05-05 16:09] VITALS: BP 124/66; PULSE 72; RESP 18; TEMP 98; O2SAT 98
[2017-05-05 20:00] VITALS: BP 134/76; PULSE 103; PULSE 93; RESP 20; TEMP 98.1; O2SAT 94
[2017-05-06] VITALS: BP 150/87; PULSE 69; RESP 20; TEMP 97.7; O2SAT 94
[2017-05-06] MEDS: SODIUM BICARBONATE 8.4% INJ 50 MEQ in SODIUM CHLOR 0.9% 1000 ML INJ 1,000 ML IV SCH ×2 (02:30→16:18)
[2017-05-06 04:00] VITALS: BP 172/89; PULSE 69; RESP 20; TEMP 98.3; O2SAT 94
[2017-05-06] MEDS: LEVOTHYROXINE SODIUM 112 MCG TAB PO SCH (05:19)
[2017-05-06] MEDS: metroNIDAZOLE 500 MG TAB PO SCH ×3 (05:19→20:58)
[2017-05-06] MEDS: ACETAMINOPHEN/HYDROcodone 325 MG/10 MG TAB PO PRN ×3 (05:20→20:58)
[2017-05-06 07:00] LABS: HEMATOCRIT 36.2 % (35.0-46.0); MEAN CORPUSCULAR HEMOGLOBIN 33.1 PG (27.0-34.0); MEAN CORPUSCULAR HGB CONC 34.1 % (32.0-36.0); PLATELET COUNT 247 TH/MM3 (150-450); RED BLOOD COUNT 3.73 MIL/MM3 (4.00-5.30); RED CELL DISTRIBUTION WIDTH 14.6 % (11.6-17.2); REVIEW FLAG FINAL; WHITE BLOOD COUNT 5.9 TH/MM3 (4.0-11.0)
[2017-05-06 07:09] LABS: BICARBONATE 24.4 MEQ/L (21.0-32.0); POTASSIUM 3.2 MEQ/L (3.5-5.1)
[2017-05-06 08:00] VITALS: BP 149/77; PULSE 70; PULSE 87; RESP 16; TEMP 98.5; O2SAT 96
[2017-05-06] MEDS: CHOLECALCIFEROL (VIT D3) 5000 UNIT CAP PO SCH (09:00)
[2017-05-06] MEDS: DOCUSATE SODIUM 100 MG CAP PO SCH ×2 (09:24→20:59)
[2017-05-06] MEDS: MULTIVITAMIN TAB PO SCH (09:24)
[2017-05-06] MEDS: METHOCARBAMOL 500 MG TAB PO SCH ×4 (09:25→20:59)
[2017-05-06] MEDS: VENLAFAXINE HCL XR 75 MG CAP PO SCH (09:25)
[2017-05-06] MEDS: THIAMINE HCL 100 MG TAB PO SCH (09:25)
[2017-05-06] MEDS: CALCIUM/VITAMIN D 250 MG/125 U TAB PO SCH ×3 (09:26→17:47)
[2017-05-06] MEDS: clonazePAM 1 MG TAB PO SCH ×2 (09:26→20:59)
[2017-05-06] MEDS: amLODIPine BESYLATE 5 MG TAB PO SCH (09:26)
[2017-05-06] MEDS: METOPROLOL TARTRATE 25 MG TAB PO SCH ×2 (09:26→20:59)
[2017-05-06] MEDS: APIXABAN 5 MG TABLET PO SCH ×2 (09:26→20:59)
[2017-05-06] MEDS: SODIUM CHLORIDE 0.9% FLUSH 10 ML FLUSH IV FLUSH SCH ×2 (09:27→21:01)
[2017-05-06] MEDS: PANTOPRAZOLE SOD 40 MG DELAYED RELEASE TAB PO SCH (09:27)
--- NOTE | 2017-05-06 09:40 | HHI.PR ---
Subjective Subjective Remarks Resting in the bed Alert oriented talkative Denies any diarrhea in the past 2-3 days, thinks that she may have had a virus Afebrile (Yin Garcia) Review of Systems Constitutional Constitutional: Weakness (mild) Constitutional Remarks 10 point ROS done positives noted (Yin Garcia) GI/Abdomen GI/Abdominal Exam: Diarrhea (none noted in the past 2-3 days patient states) (Yin Garcia) Musculoskeletal MS: Weakness (generalized recent hip repair) (Yin Garcia) Integumentary Skin Remarks No symptoms of itching today (Yin Garcia) Vitals/Results Vital Signs Vital Signs Date Time Temp Pulse Resp B/P (MAP) Pulse Ox O2 Delivery O2 Flow Rate FiO2 05/06/17 04:00 98.3 69 20 172/89 (116) 94 05/06/17 00:00 Room Air 05/06/17 00:00 97.7 69 20 150/87 (108) 94 05/05/17 20:00 103 05/05/17 20:00 98.1 93 20 134/76 (95) 94 05/05/17 20:00 Room Air 05/05/17 16:09 98.0 72 18 124/66 (85) 98 05/05/17 15:28 18 05/05/17 12:08 98.0 82 18 126/62 (83) 97 (Yin Garcia) CBC/BMP: 05/06/17 0558 05/06/17 0558 Lab Results Laboratory Tests Test 05/05/17 14:34 05/05/17 14:39 05/06/17 05:58 Lactic Acid Level 2.4 mmol/L White Blood Count 6.7 TH/MM3 5.9 TH/MM3 Red Blood Count 3.82 MIL/MM3 3.73 MIL/MM3 Hemoglobin 12.6 GM/DL 12.4 GM/DL Hematocrit 37.1 % 36.2 % Mean Corpuscular Volume 97.1 FL 97.0 FL Mean Corpuscular Hemoglobin 32.9 PG 33.1 PG Mean Corpuscular Hemoglobin Concent 33.9 % 34.1 % Red Cell Distribution Width 15.1 % 14.6 % Platelet Count 269 TH/MM3 247 TH/MM3 Mean Platelet Volume 6.9 FL 7.1 FL Neutrophils (%) (Auto) 55.7 % Lymphocytes (%) (Auto) 27.9 % Monocytes (%) (Auto) 15.3 % Eosinophils (%) (Auto) 0.6 % Basophils (%) (Auto) 0.5 % Neutrophils # (Auto) 3.7 TH/MM3 Lymphocytes # (Auto) 1.9 TH/MM3 Monocytes # (Auto) 1.0 TH/MM3 Eosinophils # (Auto) 0.0 TH/MM3 Basophils # (Auto) 0.0 TH/MM3 CBC Comment DIFF FINAL Differential Comment Blood Urea Nitrogen 14 MG/DL 12 MG/DL Creatinine 1.02 MG/DL 0.83 MG/DL Random Glucose 99 MG/DL 95 MG/DL Calcium Level 9.0 MG/DL 8.7 MG/DL Sodium Level 129 MEQ/L 131 MEQ/L Potassium Level 3.6 MEQ/L 3.2 MEQ/L Chloride Level 94 MEQ/L 96 MEQ/L Carbon Dioxide Level 25.3 MEQ/L 24.4 MEQ/L Anion Gap 10 MEQ/L 11 MEQ/L Estimat Glomerular Filtration Rate 54 ML/MIN 68 ML/MIN Lipase 490 U/L Imaging Remarks Last Impressions Abdomen/Pelvis CT 05/04/17 0734 Signed Impressions: Service Date/Time: April 08:33 - CONCLUSION: 1. No significant change in the appearance of the pancreas consistent with chronic calcific pancreatitis. Underlying pancreatic head mass cannot be ruled out on the basis of this unenhanced evaluation. The fat plane between the pancreatic head and duodenum is no longer present. 2. Cholelithiasis. 3. Stable multiple hepatic cysts. 4. Multiple bilateral renal cysts. 5. Multiple hyper dense nodules within both kidneys consistent with hyper dense cysts or possible small solid lesions. These are stable compared to the previous examination. 6. Uncomplicated colonic diverticulosis. 7. Degenerative changes and scoliosis of the thoracolumbar spine. 8. Granulomatous calcifications within the spleen. 9. Fibrotic scarring within the right posterior lung base. Trey Quiroga MD Chest X-Ray 05/04/17 0603 Signed Impressions: Service Date/Time: April 06:52 - CONCLUSION: 1. No acute cardiac pulmonary disease. Gen Forde MD Current Medications Administered Medications Medications (Trade) Dose Ordered Sig/Veronica Route PRN Reason Start Time Stop Time Status Last Admin Dose Admin Sodium Chloride (NS Flush) 2 ml BID IV FLUSH 05/04/17 21:00 05/06/17 09:27 Ondansetron HCl (Zofran Inj) 4 mg Q6H PRN IVP NAUSEA OR VOMITING 05/04/17 11:45 05/05/17 01:46 Metronidazole (Flagyl) 500 mg Q8HR PO 05/04/17 16:00 05/06/17 05:19 Sodium Bicarbonate 50 meq/Sodium Chloride 1,050 ml @ 100 mls/hr [id number] IV 05/05/17 16:00 05/05/17 16:00 Amlodipine Besylate (Norvasc) 5 mg DAILY PO 05/05/17 09:00 05/06/17 09:26 Apixaban (Eliquis) 5 mg BID PO 05/04/17 21:00 05/06/17 09:26 Calcium/Vitamin D (Oscal-D 250-125) 250 mg TID PO 05/04/17 18:00 05/06/17 09:26 Cholecalciferol (Vitamin D3) 5,000 units DAILY PO 05/05/17 09:00 05/05/17 09:00 Clonazepam (KlonoPIN) 1 mg BID PO 05/04/17 21:00 05/06/17 09:26 Docusate Sodium (Colace) 100 mg BID PO 05/04/17 21:00 05/06/17 09:24 Acetaminophen/ Hydrocodone Bitart ([place] 10-325 Mg) 1 tab Q4H PRN PO PAIN 3-10 05/04/17 13:45 05/06/17 05:20 Levothyroxine Sodium (Synthroid) 112 mcg DAILY@0600 PO 05/05/17 06:00 05/06/17 05:19 Metoprolol Tartrate (Lopressor) 25 mg BID PO 05/04/17 21:00 05/06/17 09:26 Multivitamins (Theragran) 1 tab DAILY PO 05/05/17 09:00 05/06/17 09:24 Venlafaxine HCl (Effexor Xr) 150 mg DAILY PO 05/05/17 09:00 05/06/17 09:25 Pantoprazole Sodium (Protonix) 40 mg DAILY PO 05/05/17 09:00 05/06/17 09:27 Methocarbamol (Robaxin) 750 mg QID PO 05/04/17 18:00 05/06/17 09:25 Thiamine HCl (Vitamin B1) 100 mg DAILY PO 05/04/17 09:00 05/06/17 09:25 Enalaprilat (Vasotec Inj) 1.25 mg Q6H PRN IV PUSH SBP>160, DBP>90 05/04/17 16:00 05/04/17 21:53 Diphenhydramine HCl (Benadryl) 25 mg Q6H PRN PO ITCHING 05/05/17 11:30 05/05/17 20:26 (Yin Garcia) Physical Exam General General Appearance: Well Developed, Comfortable, Pale, Anxious (Yin GarciaP) Eyes Eye Exam: Pupils Reactive (Yin Garcia) Ears & Nose Ears & Nose Exam: Nasal Mucosa [place] (Yin GarciaP) Throat Throat Exam: Oral Mucosa [place] & Moist (pale) (Yin GarciaP) Neck Neck Exam: Neck Supple (Yin GarciaP) Pulmonary Resp Exam: Clear Bilaterally (Yin GarciaP) Cardiology CV Exam: Regular (Yin GarciaP) Gastrointestinal/Abdomen GI Exam: Soft, Non-Tender, Bowel Sounds Present (Yin GarciaP) Musculoskeletal MS Exam: Joints Intact MS Remarks chronic left hip pain (Yin GarciaP) Integumentary Skin Exam: Warm, Dry (Yin GarciaP) Extremeties Extremities Exam: No Edema (Yin GarciaP) Neurologic Neuro Exam: Awake, Oriented, Speech Clear, Moving All Extremities (Yin GarciaP) Assessment/Plan Assessment/Plan Vital signs reviewed, afebrile, BP trends borderline systolic hypertension, last check 172/89, we'll continue to monitor her needs, Vasotec IV when necessary., Patient on Norvasc and metoprolol Labs reviewed, hypokalemia, hyponatremia mild 131, encourage less water and more juice, coffee Bowel regimen, patient states no further diarrhea in 2-3 days Hypokalemia, oral potassium given today 40 mEq 1 dose, and recheck labs in the morning Possible gastroenteritis versus chronic diverticulosis, controlled with medical management, possible viral Advanced to soft diet Flagyl 500 mg po q 8h, improvement EtOH abuse, patient indicates last drink was 3 days ago continue Thiamine Use Valium 10 mg po TID PRN and monitor for any further withdrawal, currently patient is alert and oriented, non-restless Left hip pain, chronic, hx left femur fracture in October with repair Encourage patient to be up out of bed sitting in chair, she is currently ambulating to the bathroom -PT eval pending Depression, history of admission to psychiatric unit. Has been staying out of town with her sister, which has been her main support system Denies suicidal ideation History recent TIA, on Eliquis History of paroxysmal A. fib, telemetry Medical management with beta alex Eliquis/SCD for DVT prophylaxis D/W RN D/W Dr. Chase, seen on his behalf D/W pt. 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
[2017-05-06] MEDS ORDERED: POTASSIUM CHLORIDE 20 MEQ CONTROLLED RELEASE TAB PO ONE (10:00)
[2017-05-06 12:00] VITALS: BP 115/72; PULSE 73; RESP 16; TEMP 98.7; O2SAT 96
[2017-05-06 16:00] VITALS: BP 135/73; PULSE 66; RESP 16; TEMP 98.6; O2SAT 95
[2017-05-06 20:00] VITALS: BP 134/65; PULSE 73; PULSE 76; RESP 18; TEMP 97.9; O2SAT 95
[2017-05-06] MEDS: ONDANSETRON HCL 4 MG/2 ML VIAL IVP PRN (21:58)
[2017-05-07] VITALS (7 sets, daily range): BP systolic 116–157; BP diastolic 61–80; PULSE 63–78; RESP 16–18; TEMP 97.9–99; O2SAT 94–99
[2017-05-07] MEDS: ACETAMINOPHEN/HYDROcodone 325 MG/10 MG TAB PO PRN ×2 (03:53→21:43)
[2017-05-07] MEDS: metroNIDAZOLE 500 MG TAB PO SCH ×3 (06:21→21:31)
[2017-05-07] MEDS: LEVOTHYROXINE SODIUM 112 MCG TAB PO SCH (06:21)
--- NOTE | 2017-05-07 10:12 | HHI.PR ---
Subjective Subjective Remarks nausea, no emesis this am . Ate 3 containers of jello. alert, calm affect, pleasant afebrile OOB in rm. prn (Yin Garcia) Review of Systems Constitutional Constitutional: Weakness (mild) Constitutional Remarks 10 point ROS done positives noted (Yin Garcia) GI/Abdomen GI/Abdominal Exam: Nausea (Yin Garcia) Musculoskeletal MS: Weakness (generalized recent hip repair) (Yin Garcia) Integumentary Skin Remarks No symptoms of itching today (Yin Garcia) Psychiatric Psychiatric: Normal Mood, Anxiety (chronic) (Yin Garcia) Vitals/Results Vital Signs Vital Signs Date Time Temp Pulse Resp B/P (MAP) Pulse Ox O2 Delivery O2 Flow Rate FiO2 05/07/17 08:00 99.0 66 18 137/79 (98) 96 05/07/17 04:00 98.0 69 18 157/80 (105) 94 05/07/17 00:00 97.9 69 16 130/66 (87) 94 05/06/17 20:00 97.9 76 18 134/65 (88) 95 05/06/17 20:00 73 05/06/17 17:14 16 05/06/17 16:00 98.6 66 16 135/73 (93) 95 05/06/17 12:00 98.7 73 16 115/72 (86) 96 (Yin Garcia) CBC/BMP: 05/06/17 0558 05/06/17 0558 Lab Results Laboratory Tests Test 05/07/17 08:55 Imaging Remarks Last Impressions Abdomen/Pelvis CT 05/04/17 0734 Signed Impressions: Service Date/Time: April 08:33 - CONCLUSION: 1. No significant change in the appearance of the pancreas consistent with chronic calcific pancreatitis. Underlying pancreatic head mass cannot be ruled out on the basis of this unenhanced evaluation. The fat plane between the pancreatic head and duodenum is no longer present. 2. Cholelithiasis. 3. Stable multiple hepatic cysts. 4. Multiple bilateral renal cysts. 5. Multiple hyper dense nodules within both kidneys consistent with hyper dense cysts or possible small solid lesions. These are stable compared to the previous examination. 6. Uncomplicated colonic diverticulosis. 7. Degenerative changes and scoliosis of the thoracolumbar spine. 8. Granulomatous calcifications within the spleen. 9. Fibrotic scarring within the right posterior lung base. Trey Quiroga MD Chest X-Ray 05/04/17 0603 Signed Impressions: Service Date/Time: April 06:52 - CONCLUSION: 1. No acute cardiac pulmonary disease. Gen Forde MD (Radha,Yin M. BASEBALL HAND SEWER) Physical Exam General General Appearance: Well Developed, Comfortable, Pale, Anxious (Radha,Yin M. BASEBALL HAND SEWER) Eyes Eye Exam: Pupils Reactive ([place],Yin M. BASEBALL HAND SEWER) Ears & Nose Ears & Nose Exam: Nasal Mucosa [place] (Radha,Yin M. BASEBALL HAND SEWER) Throat Throat Exam: Oral Mucosa [place] & Moist (pale) (Radha,Yin M. BASEBALL HAND SEWER) Neck Neck Exam: Neck Supple (Radha,Yin M. BASEBALL HAND SEWER) Pulmonary Resp Exam: Clear Bilaterally (Radha,Yin M. BASEBALL HAND SEWER) Cardiology CV Exam: Regular ([place],Yin M. BASEBALL HAND SEWER) Gastrointestinal/Abdomen GI Exam: Soft, Non-Tender, Bowel Sounds Present (Radha,Yin M. BASEBALL HAND SEWER) Musculoskeletal MS Exam: Joints Intact MS Remarks chronic left hip pain (Radha,Yin M. BASEBALL HAND SEWER) Integumentary Skin Exam: Warm, Dry (Radha,Yin M. BASEBALL HAND SEWER) Extremeties Extremities Exam: No Edema (Radha,Yin M. BASEBALL HAND SEWER) Neurologic Neuro Exam: Awake, Oriented, Speech Clear, Moving All Extremities ([place],Yin M. BASEBALL HAND SEWER) Assessment/Plan Assessment/Plan Assessment/Plan Vital signs reviewed, afebrile, BP 157/80, Vasotec IV when necessary., Patient on Norvasc and metoprolol Labs reviewed, hypokalemia labs pending,hyponatremia Bowel regimen, patient states no further diarrhea in 2-3 days, Possible gastroenteritis versus chronic diverticulosis, controlled with medical management, possible viral, afebrile Eating clear liquids, orange jello this am, nausea but no emesis Flagyl 500 mg po q 8h, improvement, slow gradual, Patient also has chronic pancreatits H x EtOH abuse, patient indicates last drink was 3 days ago before admission. Supportive care for sobriety. continue Thiamine and Valium 10 mg po TID PRN and monitor for any further withdrawal, currently patient is alert and oriented, non-restless Left hip pain, chronic, hx left femur fracture in October with repair Encourage patient to be up out of bed sitting in chair, she is currently ambulating to the bathroom -PT eval pending Hx Depression, stable with medical management History recent TIA, on Eliquis History of paroxysmal A. fib, telemetry Medical management with beta alex Eliquis/SCD for DVT prophylaxis D/W RN D/W Dr. Chase, seen on his behalf D/W patient (Yin Garcia) Assessment/Plan Patient seen and examined as above Labs reviewed Medications reviewed Discussed with RN Plan of care discussed with BASEBALL HAND SEWER Discussed with patient (Lizeth Chase MD) Yin Garcia May 07, 2017 10:12 Lizeth Chase MD May 07, 2017 14:53
[2017-05-07 10:23] LABS: BICARBONATE 25.7 MEQ/L (21.0-32.0); POTASSIUM 4.1 MEQ/L (3.5-5.1)
[2017-05-07] MEDS: CALCIUM/VITAMIN D 250 MG/125 U TAB PO SCH ×3 (10:24→18:20)
[2017-05-07] MEDS: PANTOPRAZOLE SOD 40 MG DELAYED RELEASE TAB PO SCH (10:24)
[2017-05-07] MEDS: clonazePAM 1 MG TAB PO SCH ×2 (10:24→21:30)
[2017-05-07] MEDS: amLODIPine BESYLATE 5 MG TAB PO SCH (10:25)
[2017-05-07] MEDS: VENLAFAXINE HCL XR 75 MG CAP PO SCH (10:25)
[2017-05-07] MEDS: CHOLECALCIFEROL (VIT D3) 5000 UNIT CAP PO SCH (10:25)
[2017-05-07] MEDS: APIXABAN 5 MG TABLET PO SCH ×2 (10:25→21:31)
[2017-05-07] MEDS: METOPROLOL TARTRATE 25 MG TAB PO SCH ×2 (10:25→21:30)
[2017-05-07] MEDS: THIAMINE HCL 100 MG TAB PO SCH (10:25)
[2017-05-07] MEDS: METHOCARBAMOL 500 MG TAB PO SCH ×4 (10:25→21:31)
[2017-05-07] MEDS: MULTIVITAMIN TAB PO SCH (10:25)
[2017-05-07] MEDS: SODIUM CHLORIDE 0.9% FLUSH 10 ML FLUSH IV FLUSH SCH ×2 (10:28→21:31)
[2017-05-07] MEDS: DOCUSATE SODIUM 100 MG CAP PO SCH ×2 (10:28→21:31)
[2017-05-07] MEDS: ONDANSETRON HCL 4 MG/2 ML VIAL IVP PRN (21:44)
[2017-05-08] VITALS (8 sets, daily range): BP systolic 127–156; BP diastolic 67–79; PULSE 60–85; RESP 16–18; TEMP 97.7–98.4; O2SAT 93–98
[2017-05-08] MEDS: metroNIDAZOLE 500 MG TAB PO SCH ×3 (06:13→21:24)
[2017-05-08] MEDS: LEVOTHYROXINE SODIUM 112 MCG TAB PO SCH (06:13)
--- NOTE | 2017-05-08 07:49 | HHI.PR ---
Subjective Subjective Remarks nausea, no emesis this am . Ate 3 containers of jello. alert, calm affect, pleasant afebrile OOB in rm. prn (Yin Garcia) Review of Systems Constitutional Constitutional: Weakness (mild) Constitutional Remarks 10 point ROS done positives noted (Yin Garcia) GI/Abdomen GI/Abdominal Exam: Nausea (Yin Garcia) Musculoskeletal MS: Weakness (generalized recent hip repair) (Yin Garcia) Integumentary Skin Remarks No symptoms of itching today (Yin Garcia) Psychiatric Psychiatric: Normal Mood, Anxiety (chronic) (Yin Garcia) Vitals/Results Vital Signs Vital Signs Date Time Temp Pulse Resp B/P (MAP) Pulse Ox O2 Delivery O2 Flow Rate FiO2 05/08/17 04:00 98.3 63 16 143/75 (97) 97 05/08/17 00:00 98.1 60 16 137/77 (97) 93 05/07/17 21:08 77 05/07/17 20:00 98.4 78 16 139/66 (90) 99 05/07/17 16:00 98.7 78 18 116/61 (79) 96 05/07/17 12:00 98.3 63 18 135/79 (97) 96 05/07/17 08:00 99.0 66 18 137/79 (98) 96 (Yin Garcia) CBC/BMP: 05/06/17 0558 05/07/17 0855 Lab Results Laboratory Tests Test 05/07/17 08:55 Blood Urea Nitrogen 9 MG/DL Creatinine 0.78 MG/DL Random Glucose 92 MG/DL Calcium Level 9.1 MG/DL Sodium Level 130 MEQ/L Potassium Level 4.1 MEQ/L Chloride Level 95 MEQ/L Carbon Dioxide Level 25.7 MEQ/L Anion Gap 9 MEQ/L Estimat Glomerular Filtration Rate 73 ML/MIN (Yin Garcia) Physical Exam General General Appearance: Well Developed, Comfortable, Pale, Anxious (Yin Garcia) Eyes Eye Exam: Pupils Reactive (Yin Garcia) Ears & Nose Ears & Nose Exam: Nasal Mucosa [place] (RadhaYin M. WORM RAISER) Throat Throat Exam: Oral Mucosa [place] & Moist (pale) (RadhaYin M. WORM RAISER) Neck Neck Exam: Neck Supple (Radha,Yin M. WORM RAISER) Pulmonary Resp Exam: Clear Bilaterally (Radha,Yin M. WORM RAISER) Cardiology CV Exam: Regular ([place],Yin M. WORM RAISER) Gastrointestinal/Abdomen GI Exam: Soft, Non-Tender, Bowel Sounds Present (RadhaYin M. WORM RAISER) Musculoskeletal MS Exam: Joints Intact MS Remarks chronic left hip pain (RadhaYin M. WORM RAISER) Integumentary Skin Exam: Warm, Dry (Radha,Yin M. WORM RAISER) Extremeties Extremities Exam: No Edema ([place],Yin M. WORM RAISER) Neurologic Neuro Exam: Awake, Oriented, Speech Clear, Moving All Extremities (RadhaYin M. WORM RAISER) Assessment/Plan Assessment/Plan Vital signs reviewed, afebrile, BP 145/75, Vasotec IV when necessary., Patient on Norvasc and metoprolol, blood cultures no growth Labs reviewed, hypokalemia resolved now 4.1, ,hyponatremia , limit water intake and offer juices and other liquids, intake and out put and chart. Bowel regimen, patient states no further diarrhea in 2-3 days, Possible gastroenteritis versus chronic diverticulosis, controlled with medical management, possible viral, afebrile Eating clear liquids, orange jello this am, nausea but no emesis Flagyl 500 mg po q 8h, improvement, slow gradual, Patient also has chronic pancreatits H x EtOH abuse, patient indicates last drink was 3 days ago before admission. Supportive care for sobriety. continue Thiamine and Valium 10 mg po TID PRN and monitor for any further withdrawal, currently patient is alert and oriented, non-restless Left hip pain, chronic, hx left femur fracture in October with repair Encourage patient to be up out of bed sitting in chair, she is currently ambulating to the bathroom -PT eval pending Hx Depression, stable with medical management History recent TIA, on Eliquis History of paroxysmal A. fib, telemetry Medical management with beta alex Eliquis/SCD for DVT prophylaxis D/W RN D/W Dr. 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
[2017-05-08 08:31] LABS: BICARBONATE 26.9 MEQ/L (21.0-32.0); POTASSIUM 3.4 MEQ/L (3.5-5.1)
[2017-05-08] MEDS: METHOCARBAMOL 500 MG TAB PO SCH ×5 (09:46→21:25)
[2017-05-08] MEDS: VENLAFAXINE HCL XR 75 MG CAP PO SCH (09:53)
[2017-05-08] MEDS: THIAMINE HCL 100 MG TAB PO SCH (09:54)
[2017-05-08] MEDS: MULTIVITAMIN TAB PO SCH (09:54)
[2017-05-08] MEDS: METOPROLOL TARTRATE 25 MG TAB PO SCH ×2 (09:54→21:24)
[2017-05-08] MEDS: APIXABAN 5 MG TABLET PO SCH ×2 (09:54→21:30)
[2017-05-08] MEDS: clonazePAM 1 MG TAB PO SCH ×2 (09:54→21:24)
[2017-05-08] MEDS: PANTOPRAZOLE SOD 40 MG DELAYED RELEASE TAB PO SCH (09:54)
[2017-05-08] MEDS: CHOLECALCIFEROL (VIT D3) 5000 UNIT CAP PO SCH (09:54)
[2017-05-08] MEDS: amLODIPine BESYLATE 5 MG TAB PO SCH (09:54)
[2017-05-08] MEDS: DOCUSATE SODIUM 100 MG CAP PO SCH ×2 (09:54→21:24)
[2017-05-08] MEDS: CALCIUM/VITAMIN D 250 MG/125 U TAB PO SCH ×4 (09:54→18:00)
[2017-05-08] MEDS: SODIUM CHLORIDE 0.9% FLUSH 10 ML FLUSH IV FLUSH SCH ×2 (17:21→21:31)
[2017-05-08] MEDS: ACETAMINOPHEN/HYDROcodone 325 MG/10 MG TAB PO PRN (21:26)
[2017-05-09] VITALS: BP 141/74; PULSE 68; RESP 16; TEMP 97.9; O2SAT 97
[2017-05-09 04:00] VITALS: BP 152/80; PULSE 66; RESP 16; TEMP 98.3; O2SAT 97
[2017-05-09] MEDS: ACETAMINOPHEN/HYDROcodone 325 MG/10 MG TAB PO PRN ×2 (05:30→11:43)
[2017-05-09] MEDS: LEVOTHYROXINE SODIUM 112 MCG TAB PO SCH (05:31)
[2017-05-09] MEDS: metroNIDAZOLE 500 MG TAB PO SCH ×2 (05:31→13:03)
[2017-05-09 08:00] VITALS: BP 138/74; PULSE 67; RESP 18; TEMP 97.9; O2SAT 97
[2017-05-09] MEDS: VENLAFAXINE HCL XR 75 MG CAP PO SCH (08:51)
[2017-05-09] MEDS: CHOLECALCIFEROL (VIT D3) 5000 UNIT CAP PO SCH (08:51)
[2017-05-09] MEDS: APIXABAN 5 MG TABLET PO SCH (08:51)
[2017-05-09] MEDS: clonazePAM 1 MG TAB PO SCH (08:52)
[2017-05-09] MEDS: METHOCARBAMOL 500 MG TAB PO SCH ×2 (08:52→11:43)
[2017-05-09] MEDS: amLODIPine BESYLATE 5 MG TAB PO SCH (08:52)
[2017-05-09] MEDS: PANTOPRAZOLE SOD 40 MG DELAYED RELEASE TAB PO SCH (08:52)
[2017-05-09] MEDS: SODIUM CHLORIDE 0.9% FLUSH 10 ML FLUSH IV FLUSH SCH (08:52)
[2017-05-09] MEDS: THIAMINE HCL 100 MG TAB PO SCH (08:52)
[2017-05-09] MEDS: DOCUSATE SODIUM 100 MG CAP PO SCH (08:52)
[2017-05-09] MEDS: MULTIVITAMIN TAB PO SCH (08:52)
[2017-05-09] MEDS: CALCIUM/VITAMIN D 250 MG/125 U TAB PO SCH ×2 (08:52→11:43)
[2017-05-09] MEDS: METOPROLOL TARTRATE 25 MG TAB PO SCH (08:52)
[2017-05-09] MEDS: ONDANSETRON HCL 4 MG/2 ML VIAL IVP PRN (09:03)
[2017-05-09 09:52] VITALS: PULSE 64
--- NOTE | 2017-05-09 10:58 | HHI.PR ---
Subjective Subjective Remarks Resting in bed speaking with her caregiver States she is feeling much better and wants some regular food No nausea no vomiting no abdominal pain Affect calm (Yin Garcia) Review of Systems Constitutional Constitutional: Weakness (improved) Constitutional Remarks 10 point ROS done positives noted (Yin Garcia) GI/Abdomen GI/Abdomen Remarks Negative for nausea vomiting or abdominal pain (Yin Garcia) Musculoskeletal MS: Weakness (generalized recent hip repair) (Yin Garcia) Integumentary Skin Remarks No symptoms of itching today (Yin Garcia) Psychiatric Psychiatric: Normal Mood, Anxiety (remains at her baseline seems to be calm and pleasant,) (Yin Garcia) Vitals/Results Vital Signs Vital Signs Date Time Temp Pulse Resp B/P (MAP) Pulse Ox O2 Delivery O2 Flow Rate FiO2 05/09/17 09:52 64 05/09/17 09:07 Room Air 05/09/17 08:00 97.9 67 18 138/74 (95) 97 05/09/17 04:00 98.3 66 16 152/80 (104) 97 05/09/17 00:00 97.9 68 16 141/74 (96) 97 05/08/17 20:16 77 05/08/17 20:08 98 Room Air 05/08/17 20:08 97.7 85 16 145/78 (100) 98 05/08/17 18:06 66 05/08/17 16:00 98.1 67 18 143/67 (92) 97 05/08/17 12:00 98.3 70 18 127/75 (92) 98 (Yin Garcia) CBC/BMP: 05/06/17 0558 05/08/17 0735 Current Medications Administered Medications Medications (Trade) Dose Ordered Sig/Veronica Route PRN Reason Start Time Stop Time Status Last Admin Dose Admin Sodium Chloride (NS Flush) 2 ml UNSCH PRN IV FLUSH FLUSH AFTER USING IV ACCESS 05/04/17 11:45 05/06/17 21:58 Sodium Chloride (NS Flush) 2 ml BID IV FLUSH 05/04/17 21:00 05/09/17 08:52 Ondansetron HCl (Zofran Inj) 4 mg Q6H PRN IVP NAUSEA OR VOMITING 05/04/17 11:45 05/09/17 09:03 Metronidazole (Flagyl) 500 mg Q8HR PO 05/04/17 16:00 05/09/17 05:31 Amlodipine Besylate (Norvasc) 5 mg DAILY PO 05/05/17 09:00 05/09/17 08:52 Apixaban (Eliquis) 5 mg BID PO 05/04/17 21:00 05/09/17 08:51 Calcium/Vitamin D (Oscal-D 250-125) 250 mg TID PO 05/04/17 18:00 05/09/17 08:52 Cholecalciferol (Vitamin D3) 5,000 units DAILY PO 05/05/17 09:00 05/09/17 08:51 Clonazepam (KlonoPIN) 1 mg BID PO 05/04/17 21:00 05/09/17 08:52 Docusate Sodium (Colace) 100 mg BID PO 05/04/17 21:00 05/09/17 08:52 Acetaminophen/ Hydrocodone Bitart ([place] 10-325 Mg) 1 tab Q4H PRN PO PAIN 3-10 05/04/17 13:45 05/09/17 05:30 Levothyroxine Sodium (Synthroid) 112 mcg DAILY@0600 PO 05/05/17 06:00 05/09/17 05:31 Metoprolol Tartrate (Lopressor) 25 mg BID PO 05/04/17 21:00 05/09/17 08:52 Multivitamins (Theragran) 1 tab DAILY PO 05/05/17 09:00 05/09/17 08:52 Venlafaxine HCl (Effexor Xr) 150 mg DAILY PO 05/05/17 09:00 05/09/17 08:51 Pantoprazole Sodium (Protonix) 40 mg DAILY PO 05/05/17 09:00 05/09/17 08:52 Methocarbamol (Robaxin) 750 mg QID PO 05/04/17 18:00 05/09/17 08:52 Thiamine HCl (Vitamin B1) 100 mg DAILY PO 05/04/17 09:00 05/09/17 08:52 Enalaprilat (Vasotec Inj) 1.25 mg Q6H PRN IV PUSH SBP>160, DBP>90 05/04/17 16:00 05/04/17 21:53 Diphenhydramine HCl (Benadryl) 25 mg Q6H PRN PO ITCHING 05/05/17 11:30 05/05/17 20:26 (Yin Garcia) Physical Exam General General Appearance: Well Developed, Comfortable, Pale, Anxious (controlled) (Yin GarciaP) Eyes Eye Exam: Pupils Reactive (Yin Garcia WAX ENGRAVER) Ears & Nose Ears & Nose Exam: Nasal Mucosa [place] (Yin Garcia. WAX ENGRAVER) Throat Throat Exam: Oral Mucosa [place] & Moist (pale) (Yin Garcia WAX ENGRAVER) Neck Neck Exam: Neck Supple (Yin Garcia. WAX ENGRAVER) Pulmonary Resp Exam: Clear Bilaterally (Yin Garcia WAX ENGRAVER) Cardiology CV Exam: Regular (Yin GarciaP) Gastrointestinal/Abdomen GI Exam: Soft, Non-Tender, Bowel Sounds Present GI Remarks No nausea vomiting or abdominal pain (Yin Garcia. WAX ENGRAVER) Musculoskeletal MS Exam: Joints Intact MS Remarks chronic left hip pain (Yin Garcia WAX ENGRAVER) Integumentary Skin Exam: Warm, Dry (Yin Garcia. WAX ENGRAVER) Extremeties Extremities Exam: No Edema (Yin Garcia. WAX ENGRAVER) Neurologic Neuro Exam: Awake, Oriented, Speech Clear, Moving All Extremities (Yin GarciaP) Assessment/Plan Assessment/Plan Vital signs reviewed, afebrile, trends are normal blood cultures no growth Labs reviewed, BMP pending Bowel regimen, no diarrhea Possible gastroenteritis versus chronic diverticulosis, controlled with medical management, symptoms of nausea vomiting abdominal pain have resolved Eating full liquids, but doesn't like her choices of foods like grits or cream a week. Requesting regular food, we'll place patient on heart healthy diet for lunch and evaluate for any symptoms of abdominal pain nausea or vomiting H x EtOH abuse, patient indicates last drink was 3 days ago before admission. Supportive care for sobriety. No withdrawal or anxiety noted , calm affect Left hip pain, chronic, hx left femur fracture in October with repair Encourage patient to be up out of bed sitting in chair, physical therapy to assist with mobility and strengthening while in hospital. Recommendations are for home with no physical therapy recommended Hx Depression, stable with medical management History recent TIA, on Eliquis History of paroxysmal A. fib, telemetry Medical management with beta alex Eliquis/SCD for DVT prophylaxis DC planning possible today, patient will be eating regular food for lunch and evaluate D/W caregiver in room D/W Dr. Chase, seen on his behalf D/W patient (Yin Garcia) Assessment/Plan pt seen and examined as above labs and meds reviewed tolerating diet dw pt about dc planning and followups councelled about ETOH cessation she understood plan of care neo villap dc home today time spent in dc planning fo this pt is more than 45 min (Lizeth Chase MD) Yin Garcia May 09, 2017 10:58 Lizeth Chase MD May 09, 2017 14:19
[2017-05-09] MEDS ORDERED: METR-1 PO (14:23)
--- NOTE | 2017-05-09 17:27 | HHI.DS ---
Discharge Summary Admission Date May 04, 2017 at 15:52 Discharge Date: May 09, 2017 Admitting Diagnosis ENTERITIS, LACTIC ACIDOSIS,HYPONATREMIA (1) Nausea, vomiting, and diarrhea ICD Codes: R11.2 - Nausea with vomiting, unspecified; R19.7 - Diarrhea, unspecified Status: Acute (2) Metabolic acidosis, increased anion gap ICD Codes: E87.2 - Acidosis Status: Acute (3) Anxiety ICD Codes: F41.9 - Anxiety Status: Chronic (4) History of atrial fibrillation ICD Codes: Z86.79 - Personal history of other diseases of the circulatory system Status: Chronic (5) Hypothyroid ICD Codes: E03.9 - Hypothyroidism Status: Chronic (6) HTN (hypertension) ICD Codes: I10 - Essential (primary) hypertension Status: Chronic (7) Alcohol use ICD Codes: Z78.9 - Other specified health status Status: Chronic (8) Depression ICD Codes: F32.9 - Depression Status: Chronic (9) Adjustment disorder ICD Codes: F43.20 - Adjustment disorder, unspecified Status: Chronic (10) Tachycardia ICD Codes: R00.0 - Tachycardia, unspecified Status: Acute (11) Hx TIA/stroke w/o resid ICD Codes: Z86.73 - Personal history of transient ischemic attack (TIA), and cerebral infarction without residual deficits Status: Chronic (12) Hyponatremia ICD Codes: E87.1 - Hyponatremia Status: Acute (13) Elevated lipase ICD Codes: R74.8 - Abnormal levels of other serum enzymes Status: Acute Brief History This was a 71-year-old female known to our services from frequent admissions. Patient with significant past medical history of recent TIA August 2016, A. fib in the past, alcohol abuse, hypertension, hypothyroid, depression. Patient presented to the emergency room with complaint of nausea vomiting and diarrhea that has been ongoing for a few days. Complains of diffuse abdominal tenderness , she thinks is from the retching. She's had liquid stools, denies any recent antibiotic use. Indicates stools are watery and brown, no blood. No hematemesis. She had not been eating very much and had subjective fevers, no chills. She Indicated that she still drinks approximately 3-4 Garrett Moreau every day. Her last drink was about 3 days ago which she stopped when she started feeling sick. Denied prior withdrawal symptoms. Denied any sick contacts. CBC/BMP: 05/06/17 0558 05/08/17 0735 Significant Findings Laboratory Tests Test 05/07/17 08:55 05/08/17 07:35 Sodium Level 130 MEQ/L (136-145) 132 MEQ/L (136-145) Chloride Level 95 MEQ/L (98-107) Estimat Glomerular Filtration Rate 73 ML/MIN (>89) 72 ML/MIN (>89) Potassium Level 3.4 MEQ/L (3.5-5.1) Imaging Last Impressions Abdomen/Pelvis CT 05/04/17 0734 Signed Impressions: Service Date/Time: April 08:33 - CONCLUSION: 1. No significant change in the appearance of the pancreas consistent with chronic calcific pancreatitis. Underlying pancreatic head mass cannot be ruled out on the basis of this unenhanced evaluation. The fat plane between the pancreatic head and duodenum is no longer present. 2. Cholelithiasis. 3. Stable multiple hepatic cysts. 4. Multiple bilateral renal cysts. 5. Multiple hyper dense nodules within both kidneys consistent with hyper dense cysts or possible small solid lesions. These are stable compared to the previous examination. 6. Uncomplicated colonic diverticulosis. 7. Degenerative changes and scoliosis of the thoracolumbar spine. 8. Granulomatous calcifications within the spleen. 9. Fibrotic scarring within the right posterior lung base. Trey Quiroga MD Chest X-Ray 05/04/17 0603 Signed Impressions: Service Date/Time: April 06:52 - CONCLUSION: 1. No acute cardiac pulmonary disease. Gen Forde MD PE at Discharge General General Appearance: Well Developed, Comfortable, Pale, Anxious (controlled) (Radha,Yin M. [employer] PROFESSIONAL) Eyes Eye Exam: Pupils Reactive (DukedomYin M. [employer] PROFESSIONAL) Ears & Nose Ears & Nose Exam: Nasal Mucosa [place]verta (RadhaYin M. [employer] PROFESSIONAL) Throat Throat Exam: Oral Mucosa [place] & Moist (pale) (Dukedom,Yin M. [employer] PROFESSIONAL) Neck Neck Exam: Neck Supple (Radha,Yin M. [employer]CHO[employer] PROFESSIONAL) Pulmonary Resp Exam: Clear Bilaterally (Dukedom,Yin M. [employer] PROFESSIONAL) Cardiology CV Exam: Regular (DukedomYin M[employer] PROFESSIONAL) Gastrointestinal/Abdomen GI Exam: Soft, Non-Tender, Bowel Sounds Present GI Remarks No nausea vomiting or abdominal pain (Reyna Garcialauren OSHEA) Musculoskeletal MS Exam: Joints Intact MS Remarks chronic left hip pain (Reyna Garcialauren GUALLPAP) Integumentary Skin Exam: Warm, Dry (RadhaYin tonyP) Extremeties Extremities Exam: No Edema (DukedomYin sladeP) Neurologic Neuro Exam: Awake, Oriented, Speech Clear, Moving All Extremities (Reyna Garcialauren OSHEA) Hospital Course In the emergency room, patient was evaluated. CBC was essentially unremarkable. A&P remarkable for hyponatremia, sodium 124, carbon dioxide 15.4 , lactic acidosis 6.7, glucose 66, TC 1.3. Lipase 438. Patient endorses that she's felt more depressed but denies suicidal ideation. She lost her last year and has been seen by psychiatry. Indicated she was compliant with medications. Had chronic left hip pain from surgery in October. Indicated she ambulated with a cane and a walker. Patient had imaging studies, no significant findings. She was given IV fluids and started on Flagyl. Stools for C. difficile are pending. Diagnosis listed were used to treat patient during this hospital stay. Vital signs reviewed every 4 hrs dailt until DC. Remained afebrile,BP trends are normal , blood cultures no growth Labs reviewed and monitored through hospital stay Bowel regimen, diarrhea initially , but resolved and bowel regimen controlled. Patient had possible gastroenteritis versus chronic diverticulosis, controlled with medical management, symptoms of nausea vomiting abdominal pain have resolved. Possible viral in nature. Diet initially was clear liquids , increased to full liquids once nausea controlled. On day of DC, Requesting regular food, we'll place patient on heart healthy diet for lunch and evaluate for any symptoms of abdominal pain nausea or vomiting. If stable, can DC today. H x EtOH abuse, patient indicates last drink was 3 days ago before admission. Supportive care for sobriety. No withdrawal or anxiety noted , calm affect through hospital stay. Left hip pain, chronic, hx left femur fracture in October with repair Encourage patient to be up out of bed sitting in chair, physical therapy to assist with mobility and strengthening while in hospital. Recommendations are for home with no physical therapy recommended Hx Depression, stable with medical management History recent TIA, on Eliquis History of paroxysmal A. fib, telemetry Medical management with beta alex Eliquis/SCD for DVT prophylaxis Dr. Salvatore lawson patient day of DC and was found to be medically stable. Pt Condition on Discharge: Good Discharge Disposition: Discharge Home Discharge Instructions DIET: Follow Instructions for: Heart Healthy Diet Activities you can perform: Weight Bearing as Madelyn Follow up Referrals: PCP Follow-up - 1 Week New Medications: Metronidazole (Flagyl) 500 Mg Tab 500 MG PO Q8HR for GE, #15 TAB Continued Medications: Amlodipine (Norvasc) 5 Mg Tab 5 MG PO DAILY, #30 TAB 1 Refill Apixaban (Eliquis) 5 Mg Tab 5 MG PO BID for stroke , #60 TAB 1 Refill Calcium Carbonate-Cholecalciferol (Oyster Shell Calcium/Vitamin D) 250-125 Mg- Unit Tab 250 MG PO TID for Calcium Supplement, #90 TAB 1 Refill Cholecalciferol (Vitamin D3) 5,000 Unit Cap 5000 UNITS PO DAILY for Nutritional Supplement, #60 CAP 1 Refill Clonazepam (Klonopin) 1 Mg Tab 1 MG PO BID, #60 TAB Docusate Sodium (Dok) 100 Mg Cap 100 MG PO BID, #60 CAP [address] (Nexium) 40 Mg Capdr 40 MG PO DAILY, #30 CAP 1 Refill Hydrocodone-Acetaminophen ([place]) 10-325 Mg Tab 1 TAB PO Q4H PRN for PAIN, #120 TAB 0 Refills Levothyroxine (Levothyroxine) 112 Mcg Tab 112 MCG PO DAILY, #30 TAB 1 Refill Lidocaine (Lidoderm) 5 % Adh..patch 1 PATCH TOPICAL DAILY PRN for PAIN SCALE 1 TO 10, #30 Methocarbamol (Robaxin) 750 Mg Tab 750 MG PO QID for Pain, #40 TAB Metoprolol Tartrate (Metoprolol Tartrate) 25 Mg Tab 25 MG PO BID, #60 TAB 1 Refill Multiple Vitamin (Thera/Beta-Carotene) 1 Tab Tab 1 TAB PO DAILY, #30 TAB 1 Refill Thiamine (Vitamin B-1) 100 Mg Tab 100 MG PO DAILY, #30 TAB 1 Refill Venlafaxine ER 24 HR (Effexor XR 24 HR) 75 Mg Cap 150 MG PO DAILY, #60 CAP Yin Garcia May 09, 2017 17:27
== END 2017-05-09 15:39 | disposition home or self-care (01) | DRG 392 ==
LOC: NEPC 05:49 → NEDA 08:40 → NEPGCP 12:05 → OBSVTOIN 15:52 → N04B 05-05 01:17
PROVIDERS: ADMIT Specialist; ATTEND Specialist
DX: K52.9 Noninfective gastroenteritis and colitis, unspecified (principal); E87.2 Acidosis; I48.0 Paroxysmal atrial fibrillation; E87.1 Hypo-osmolality and hyponatremia; I10 Essential (primary) hypertension; F32.9 Major depressive disorder, single episode, unspecified; E86.0 Dehydration; F10.10 Alcohol abuse, uncomplicated; M25.552 Pain in left hip; Z79.02 Long term (current) use of antithrombotics/antiplatelets; F41.9 Anxiety disorder, unspecified; E03.9 Hypothyroidism, unspecified; R00.0 Tachycardia, unspecified; K21.9 Gastro-esophageal reflux disease without esophagitis; L29.9 Pruritus, unspecified; E87.6 Hypokalemia; K57.30 Diverticulosis of large intestine without perforation or abscess without bleeding; Z85.3 Personal history of malignant neoplasm of breast; Z86.73 Personal history of transient ischemic attack (TIA), and cerebral infarction without residual deficits; Z87.11 Personal history of peptic ulcer disease
CPT/HCPCS: 71010; 74176; 76937; 80048; 80053; 81001; 83605; 83690; 83735; 84484; 85025; 85027; 85610; 85730; 87040; 93005; 96361; 96374; 96375; 96376; J1170; J2405; J3475; J7030; J7040

== ENCOUNTER 2017-05-31 12:54 | Emergency (ER) | payer MEDICARE, BC ==
[~2017-05-31] VITALS: Ht 167.6 cm; Wt 65.0 kg
[~2017-05-31 12:54] MED LIST changes: +METR-1 PO
[2017-05-31 12:56] VITALS: BP 153/70; PULSE 114; RESP 20; TEMP 98.8; O2SAT 99
--- NOTE | 2017-05-31 13:11 | PD ---
Physical Exam Date Seen by Provider: May 31, 2017 Time Seen by Provider: 13:09 Narrative 71 year old female here for N/V/D. Pain on upper abdomen and possibly chest. Going on since this am. No blood. No fevers, chills or sweats. No blood thinner use. Allergy to sulfa. Pain is 8/10. Vitals stable in triage except for tachycardia. Awaiting bed placement. Data Data Last Documented VS Vital Signs Date Time Temp Pulse Resp B/P (MAP) Pulse Ox O2 Delivery O2 Flow Rate FiO2 05/31/17 12:56 98.8 114 20 153/70 (97) 99 Room Air Orders Orders Complete Blood Count With Diff (05/31/17 13:03) Comprehensive Metabolic Panel (05/31/17 13:03) Lactic Acid (05/31/17 13:03) Urinalysis - C+S If Indicated (05/31/17 13:03) Electrocardiogram (05/31/17 13:03) Lipase (05/31/17 13:03) MDM Medical Record Reviewed: Yes Supervised Visit with ALFREDA: No Ronald Leblanc May 31, 2017 13:11
[2017-05-31] MEDS ORDERED: ONDANSETRON HCL 4 MG/2 ML VIAL IV ONE (15:00)
[2017-05-31] MEDS ORDERED: LORazepam 2 MG/ML VIAL IV PUSH ONE (15:00)
[2017-05-31] MEDS ORDERED: SODIUM CHLOR 0.9% 1000 ML INJ 1,000 ML IV ONE (15:00)
--- NOTE | 2017-05-31 15:07 | PD ---
HPI Chief Complaint: GI Complaint Time Seen by Provider: 14:36 Travel History International Travel<30 days: No Contact w/Intl Traveler<30days: No Traveled to known affect area: No History of Present Illness HPI This 71-year-old woman who presents to the emergency department complaining of nausea vomiting diarrhea. She is a history of alcoholism and chronic pancreatitis. She was recently admitted to the hospital with enteritis and lactic acidosis possibly related to chronic pancreatitis. She was released several weeks ago. Pain is mostly int he epigastrium, radiates into the abdomen , and has been constant since onset. History Past Medical History Narrative Medical 1. Chronic pancreatitis. 2. Arthritis. 3. Anxiety. 4. Depression. 5. Atrial fibrillation history in the past. 6. History of left breast cancer. 7. Gastric ulcer. 8. GERD. 9. Hypertension. 10.History of fluid retention in the past. 11.Hypothyroidism. 12.History of lysis of adhesions. 13.Sinus surgery. 14. ETOH abuse 15. TIA Aug 2016 16. Recent psych admit 2016 17. Fall with left hip fracture October 2016 18. TIA/CVA Menopausal: Yes : 2 Para: 1 Social History Alcohol Use: Yes Tobacco Use: No Allergies-Medications (Allergen,Severity, Reaction): Coded Allergies: Sulfa (Sulfonamide Antibiotics) (Unverified Allergy, Intermediate, rash, ) Reported Meds & Prescriptions Reported Meds & Active Scripts Active Flagyl (Metronidazole) 500 Mg Tab 500 Mg PO Q8HR Lidoderm (Lidocaine) 5 % Adh..patch 1 Patch TOPICAL DAILY PRN Robaxin (Methocarbamol) 750 Mg Tab 750 Mg PO QID Norvasc (Amlodipine Besylate) 5 Mg Tab 5 Mg PO DAILY Klonopin (Clonazepam) 1 Mg Tab 1 Mg PO BID Dok (Docusate Sodium) 100 Mg Cap 100 Mg PO BID Thera/Beta-Carotene (Multiple Vitamin) 1 Tab Tab 1 Tab PO DAILY Vitamin B-1 (Thiamine HCl) 100 Mg Tab 100 Mg PO DAILY Metoprolol Tartrate 25 Mg Tab 25 Mg PO BID Effexor XR 24 HR (Venlafaxine HCl) 75 Mg Cap 150 Mg PO DAILY [place] (Hydrocodone-Acetaminophen) 10-325 Mg Tab 1 Tab PO Q4H PRN Vitamin D3 (Cholecalciferol) 5,000 Unit Cap 5,000 Units PO DAILY Oyster Shell Calcium/Vitamin D (Calcium Carbonate-Cholecalciferol) 250-125 Mg- Unit Tab 250 Mg PO TID Levothyroxine (Levothyroxine Sodium) 112 Mcg Tab 112 Mcg PO DAILY Nexium (Esomeprazole DR) 40 Mg Capdr 40 Mg PO DAILY Eliquis (Apixaban) 5 Mg Tab 5 Mg PO BID Commode 3-in-1 (Device) 1 Mis Mis 1 Ea .ROUTE DIRECTED Wheelchair (Device) 1 Mis Mis 1 Ea .ROUTE DIRECTED Walker/Adult/Folding (Device) 1 Mis Mis 1 Ea .ROUTE DIRECTED Review of Systems Except as stated in HPI: all other systems reviewed are Neg Physical Exam Narrative GENERAL: 71-year-old woman, with a chronically ill-appearing, little bit tremulous. SKIN: Focused skin assessment warm/dry. Some piloerection. HEAD: Atraumatic. Normocephalic. EYES: Pupils equal and round. No scleral icterus. No injection or drainage. ENT: No nasal bleeding or discharge. Mucous membranes pink and moist. NECK: Trachea midline. No JVD. CARDIOVASCULAR: Regular rate and rhythm. No murmur appreciated. RESPIRATORY: No accessory muscle use. Clear to auscultation. Breath sounds equal bilaterally. GASTROINTESTINAL: Abdomen is flat and soft. Moderate epigastric tenderness. No rebound or guarding. MUSCULOSKELETAL: No obvious deformities. No clubbing. No cyanosis. No edema. NEUROLOGICAL: Awake and alert. No obvious cranial nerve deficits. Motor grossly within normal limits. Normal speech. PSYCHIATRIC: Appropriate mood and affect; insight and judgment normal. Data Data Last Documented VS Vital Signs Date Time Temp Pulse Resp B/P (MAP) Pulse Ox O2 Delivery O2 Flow Rate FiO2 05/31/17 12:56 98.8 114 20 153/70 (97) 99 Room Air Orders Orders Complete Blood Count With Diff (05/31/17 13:03) Comprehensive Metabolic Panel (05/31/17 13:03) Lactic Acid (05/31/17 13:03) Electrocardiogram (05/31/17 13:03) Lipase (05/31/17 13:03) Sodium Chlor 0.9% 1000 Ml Inj (Ns 1000 M (05/31/17 15:00) Ondansetron Inj (Zofran Inj) (05/31/17 15:00) Lorazepam Inj (Ativan Inj) (05/31/17 15:00) Labs Laboratory Tests Test 05/31/17 15:10 White Blood Count 6.9 TH/MM3 Red Blood Count 4.30 MIL/MM3 Hemoglobin 14.2 GM/DL Hematocrit 41.3 % Mean Corpuscular Volume 96.1 FL Mean Corpuscular Hemoglobin 33.1 PG Mean Corpuscular Hemoglobin Concent 34.4 % Red Cell Distribution Width 16.9 % Platelet Count 353 TH/MM3 Mean Platelet Volume 7.0 FL Neutrophils (%) (Auto) 63.0 % Lymphocytes (%) (Auto) 20.4 % Monocytes (%) (Auto) 16.1 % Eosinophils (%) (Auto) 0.1 % Basophils (%) (Auto) 0.4 % Neutrophils # (Auto) 4.4 TH/MM3 Lymphocytes # (Auto) 1.4 TH/MM3 Monocytes # (Auto) 1.1 TH/MM3 Eosinophils # (Auto) 0.0 TH/MM3 Basophils # (Auto) 0.0 TH/MM3 CBC Comment DIFF FINAL Differential Comment Blood Urea Nitrogen 14 MG/DL Creatinine 1.24 MG/DL Random Glucose 102 MG/DL Total Protein 8.0 GM/DL Albumin 3.6 GM/DL Calcium Level 9.4 MG/DL Alkaline Phosphatase 93 U/L Aspartate Amino Transf (AST/SGOT) 25 U/L Alanine Aminotransferase (ALT/SGPT) 17 U/L Total Bilirubin 1.0 MG/DL Sodium Level 134 MEQ/L Potassium Level 3.8 MEQ/L Chloride Level 99 MEQ/L Carbon Dioxide Level 23.4 MEQ/L Anion Gap 12 MEQ/L Estimat Glomerular Filtration Rate 43 ML/MIN Lactic Acid Level 2.4 mmol/L Lipase 496 U/L [facility] Medical Decision Making Medical Screen Exam Complete: Yes Emergency Medical Condition: Yes Interpretation(s) My review of EKG: Sinus tachycardia rate of 108, normal axis, normal intervals, no acute ischemia. LABS: CBC is unremarkable. CMP is generally unremarkable. Creatinine 1.24 Lactate 2.4 Lipase 496 Differential Diagnosis Gastritis, pancreatitis, enteritis, other Narrative Course Medical decision making 71-year-old woman with nausea vomiting diarrhea, history of pancreatitis, still drinking, last drank alcohol yesterday, some evidence of mild alcohol withdrawal , we'll check labs, IV fluids, little bit of Ativan, reassess. FINAL: Patient resting comfortably. No vomiting since she's been here. Looks well. We'll recommend outpatient follow-up. She likely has chronic gastritis/ pancreatitis related to alcohol use. Recommend cessation. Diagnosis Primary Impression: Nausea & vomiting Additional Instructions: Use Zofran as a for nausea or vomiting. Follow-up with her primary doctor in the next 2-4 days. Return to the emergency department for any new or worsening symptoms. Med/Other Pt SpecificInfo: Prescription(s) given Scripts Ondansetron Odt (Zofran Odt) 4 Mg Tab 4 MG SL Q8HR Y for Nausea/Vomiting, #30 TAB 0 Refills Prov: Juan Arellano MD 05/31/17 Disposition: 01 DISCHARGE HOME Condition: Stable Juan Arellano MD May 31, 2017 15:07
[2017-05-31 15:23] LABS: AUTOMATED NEUTROPHIL # 4.4 TH/MM3 (1.8-7.7); BASOPHIL % 0.4 % (0.0-2.0); EOSINOPHIL % 0.1 % (0.0-4.0); HEMATOCRIT 41.3 % (35.0-46.0); HEMO FLAGS DIFF FINAL; LYMPH % 20.4 % (9.0-44.0); LYMPHOCYTE # 1.4 TH/MM3 (1.0-4.8); MEAN CELL VOLUME 96.1 FL (80.0-100.0); MEAN CORPUSCULAR HEMOGLOBIN 33.1 PG (27.0-34.0); MEAN CORPUSCULAR HGB CONC 34.4 % (32.0-36.0); MONO % 16.1 % (0.0-8.0); PLATELET COUNT 353 TH/MM3 (150-450); RED CELL DISTRIBUTION WIDTH 16.9 % (11.6-17.2); WHITE BLOOD COUNT 6.9 TH/MM3 (4.0-11.0)
[2017-05-31 15:53] LABS: ALT (GPT) 17 U/L (10-53); ANION GAP 12 MEQ/L (5-15); AST (GOT) 25 U/L (15-37); BICARBONATE 23.4 MEQ/L (21.0-32.0); BLOOD UREA NITROGEN 14 MG/DL (7-18); CHLORIDE 99 MEQ/L (98-107); GLOMERULAR FILTRATION RATE 43 ML/MIN (>89); POTASSIUM 3.8 MEQ/L (3.5-5.1); SODIUM (NA) 134 MEQ/L (136-145)
[2017-05-31 15:55] LABS: ALKALINE PHOSPHATASE 93 U/L (45-117)
[2017-05-31] MEDS ORDERED: ZOFR4TAB3 SL (16:20)
--- NOTE | 2017-06-01 14:41 | EKG ---
Date Performed: 05/31/2017 Time Performed: 14:47:36 PTAGE: 71 years EKG: SINUS TACHYCARDIA ABNORMAL RHYTHM ECG PREVIOUS TRACING : 05/04/2017 06.36 Compared to prior tracing no significant change DOCTOR: Shiv Posey Interpretating Date/Time 06/01/2017 14:36:45
== END 2017-05-31 17:10 | disposition home or self-care (01) ==
LOC: NEPD 12:54
DX: R11.2 Nausea with vomiting, unspecified (principal); R19.7 Diarrhea, unspecified; K85.90 Acute pancreatitis without necrosis or infection, unspecified; R00.0 Tachycardia, unspecified; R94.31 Abnormal electrocardiogram [ECG] [EKG]; M19.90 Unspecified osteoarthritis, unspecified site; I10 Essential (primary) hypertension; E03.9 Hypothyroidism, unspecified; I48.91 Unspecified atrial fibrillation
CPT/HCPCS: 80053; 83605; 83690; 85025; 93005; 96361; 96374; 96375; 99284; J2060; J2405; J7030

== ENCOUNTER 2017-07-04 13:58 | Inpatient (IN) | payer MEDICARE, BC ==
[~2017-07-04] VITALS: Ht 165.1 cm; Wt 64.2 kg
[~2017-07-04 13:58] MED LIST changes: +LIDO1ADH4 TOPICAL; -LIDO5DIS5 TOPICAL; +ZOFR4TAB3 SL
[2017-07-04] MEDS ORDERED: IOHEXOL 350 MG/ML 10 ML VIAL (for RAD DIAG) IVCONTRAST ONE (13:59)
[2017-07-04] MEDS ORDERED: SODIUM CHLOR 0.9% 1000 ML INJ 1,000 ML IV SCH (14:56)
--- NOTE | 2017-07-04 14:59 | PD ---
HPI Chief Complaint: Abdominal Pain Time Seen by Provider: 14:48 Travel History International Travel<30 days: No Contact w/Intl Traveler<30days: No Traveled to known affect area: No History of Present Illness HPI 9-year-old female presents for EMS for evaluation of abdominal pain. Symptoms started this morning. She describes it as a sharp pain in her epigastric/left upper quadrant abdomen radiating to the left flank. Pain is constant, associated with nausea. Denies vomiting, chest pain or shortness of breath, cough or congestion, fevers or chills, rash. She does endorse increased urinary frequency-she was recently treated with Macrobid for urinary tract infection. She endorses occasional alcohol use. She has no other complaints at this time. PFSH Past Medical History Hx Anticoagulant Therapy: Yes (ASPIRIN) Arthritis: Yes Asthma: No Autoimmune Disease: Yes (RA) Blood Disorders: No Anxiety: Yes Depression: Yes Heart Rhythm Problems: No Cancer: Yes Cardiovascular Problems: No High Cholesterol: No Chemotherapy: No Chest Pain: No Congestive Heart Failure: No COPD: No Cerebrovascular Accident: Yes (2016) Coronary Artery Disease: Yes Diabetes: No Diminished Hearing: Yes Endocrine: No GERD: Yes Genitourinary: No Headaches: No Hiatal Hernia: No Heparin Induced Thrombocytopen: No Hypertension: Yes Immune Disorder: No Implanted Vascular Access Dvce: No Kidney Stones: No Musculoskeletal: No Neurologic: No Psychiatric: No Reproductive: No Respiratory: No Immunizations Current: Yes Migraines: Yes Pancreatitis: Yes Radiation Therapy: Yes Renal Failure: No Seizures: Yes (2) Sickle Cell Disease: No Sleep Apnea: No Thyroid Disease: Yes (hypothyroidism) Ulcer: Yes (peptic ulcers) Menopausal: Yes : 2 Para: 1 Miscarriage: 1 Past Surgical History Abdominal Surgery: Yes (LYSIS OF ADHESIONS ) AICD: No Appendectomy: Yes Arteriovenous Shunt: No Body Medical Devices: L hip hardware in place Cardiac Surgery: No Cholecystectomy: Yes Ear Surgery: No Endocrine Surgery: No Eye Surgery: No Genitourinary Surgery: No Gynecologic Surgery: Yes (Hysterectomy) Hysterectomy: Yes Insulin Pump: No Joint Replacement: No Neurologic Surgery: No Oral Surgery: Yes (caps) Pacemaker: No Thoracic Surgery: No Social History Alcohol Use: Yes Tobacco Use: No Substance Use: No Allergies-Medications (Allergen,Severity, Reaction): Coded Allergies: Sulfa (Sulfonamide Antibiotics) (Unverified Allergy, Intermediate, rash, 8 /15/17) Reported Meds & Prescriptions Reported Meds & Active Scripts Active Zofran Odt (Ondansetron Odt) 4 Mg Tab 4 Mg SL Q8HR PRN Dok (Docusate Sodium) 100 Mg Cap 100 Mg PO BID Thera/Beta-Carotene (Multiple Vitamin) 1 Tab Tab 1 Tab PO DAILY Effexor XR 24 HR (Venlafaxine HCl) 75 Mg Cap 150 Mg PO DAILY Vitamin D3 (Cholecalciferol) 5,000 Unit Cap 5,000 Units PO DAILY Nexium (Esomeprazole DR) 40 Mg Capdr 40 Mg PO DAILY Reported Maxzide (Triamterene/HCTZ) 75-50 Mg Tab 1 Tab PO DAILY Losartan (Losartan Potassium) 100 Mg Tab 100 Mg PO DAILY Alprazolam 1 Mg Tab 1 Mg PO HS PRN Levothyroxine (Levothyroxine Sodium) 175 Mcg Tab 175 Mcg PO DAILY Pristiq 24 HR (Desvenlafaxine ER 24 HR) 100 Mg Tab 100 Mg PO DAILY Review of Systems Except as stated in HPI: all other systems reviewed are Neg Physical Exam Narrative GENERAL: Well-nourished female who appears uncomfortable. SKIN: Warm and dry. HEAD: Atraumatic. Normocephalic. EYES: Pupils equal and round. No scleral icterus. No injection or drainage. ENT: No nasal bleeding or discharge. Mucous membranes pink and moist. NECK: Trachea midline. No JVD. CARDIOVASCULAR: Regular rate and rhythm. No murmur appreciated. RESPIRATORY: No accessory muscle use. Clear to auscultation. Breath sounds equal bilaterally. GASTROINTESTINAL: Abdomen soft, tender to palpation in the epigastric/left upper quadrant. Left CVA tenderness. No guarding. MUSCULOSKELETAL: No obvious deformities. No clubbing. No cyanosis. No edema. NEUROLOGICAL: Awake and alert. No obvious cranial nerve deficits. Motor grossly within normal limits. Normal speech. PSYCHIATRIC: Appropriate mood and affect; insight and judgment normal. Data Data Last Documented VS Vital Signs Date Time Temp Pulse Resp B/P (MAP) Pulse Ox O2 Delivery O2 Flow Rate FiO2 07/04/17 15:30 100 Room Air 07/04/17 15:23 99.3 85 16 187/89 (121) Orders Orders Complete Blood Count With Diff (07/04/17 14:56) Comprehensive Metabolic Panel (07/04/17 14:56) Lipase (07/04/17 14:56) Urinalysis - C+S If Indicated (07/04/17 14:56) Ct Abd/Pel W Iv Contrast(Rout) (07/04/17 14:56) Iv Access Insert/Monitor (07/04/17 14:56) Ecg Monitoring (07/04/17 14:56) Oximetry (07/04/17 14:56) Ondansetron Inj (Zofran Inj) (07/04/17 15:00) Sodium Chlor 0.9% 1000 Ml Inj (Ns 1000 M (07/04/17 14:56) Sodium Chloride 0.9% Flush (Ns Flush) (07/04/17 15:00) Electrocardiogram (07/04/17 14:56) Morphine Inj (Morphine Inj) (07/04/17 15:00) Iohexol 350 Inj (Omnipaque 350 Inj) (07/04/17 13:59) Admit Order (Ed Use Only) (07/04/17 19:26) Labs Laboratory Tests Test 07/04/17 15:30 07/04/17 18:20 White Blood Count 12.4 TH/MM3 Red Blood Count 3.75 MIL/MM3 Hemoglobin 12.8 GM/DL Hematocrit 36.3 % Mean Corpuscular Volume 96.8 FL Mean Corpuscular Hemoglobin 34.1 PG Mean Corpuscular Hemoglobin Concent 35.2 % Red Cell Distribution Width 16.2 % Platelet Count 353 TH/MM3 Mean Platelet Volume 7.5 FL Neutrophils (%) (Auto) 75.6 % Lymphocytes (%) (Auto) 15.7 % Monocytes (%) (Auto) 8.0 % Eosinophils (%) (Auto) 0.5 % Basophils (%) (Auto) 0.2 % Neutrophils # (Auto) 9.4 TH/MM3 Lymphocytes # (Auto) 1.9 TH/MM3 Monocytes # (Auto) 1.0 TH/MM3 Eosinophils # (Auto) 0.1 TH/MM3 Basophils # (Auto) 0.0 TH/MM3 CBC Comment DIFF FINAL Differential Comment Blood Urea Nitrogen 14 MG/DL Creatinine 0.70 MG/DL Random Glucose 86 MG/DL Total Protein 7.3 GM/DL Albumin 3.2 GM/DL Calcium Level 9.2 MG/DL Alkaline Phosphatase 80 U/L Aspartate Amino Transf (AST/SGOT) 23 U/L Alanine Aminotransferase (ALT/SGPT) 18 U/L Total Bilirubin 0.4 MG/DL Sodium Level 137 MEQ/L Potassium Level 4.0 MEQ/L Chloride Level 103 MEQ/L Carbon Dioxide Level 23.4 MEQ/L Anion Gap 11 MEQ/L Lipase 6793 U/L Urine Color YELLOW Urine Turbidity HAZY Urine pH 5.5 Urine Specific [place] 1.021 Urine Protein TRACE mg/dL Urine Glucose (UA) NEG mg/dL Urine Ketones NEG mg/dL Urine Occult Blood NEG Urine Nitrite NEG Urine Bilirubin NEG Urine Urobilinogen LESS THAN 2.0 MG/DL Urine Leukocyte Esterase NEG Urine RBC 1 /hpf Urine WBC 1 /hpf Urine Squamous Epithelial Cells 10 /hpf Urine Bacteria RARE /hpf Microscopic Urinalysis Comment CULT NOT INDICATED MDM Medical Decision Making Medical Screen Exam Complete: Yes Emergency Medical Condition: Yes Medical Record Reviewed: Yes Differential Diagnosis Pancreatitis, peptic ulcer disease, gastritis, renal stone, aortic dissection Narrative Course The patient will be placed on ECG monitoring pulse oximetry. Twelve-lead EKG will be obtained. Plan is for lab work, urinalysis, CT abdomen and pelvis. She will be given IV fluids, Zofran, morphine. CT abdomen and pelvis reveals CONCLUSION: 1. Acute on chronic pancreatitis. The pancreatic duct is dilated to 6 mm which is a new finding. There are numerous parenchymal calcifications associated with the pancreatic head. I cannot completely exclude choledocholithiasis. 2. Cholelithiasis. 3. Groundglass infiltrates involving the left lower lobe. I cannot exclude an infectious etiology. 4. Hiatal hernia. Lipase is 6700. The patient will be admitted. Diagnosis Primary Impression: Pancreatitis, acute Qualified Codes: K85.90 - Acute pancreatitis without necrosis or infection, unspecified Admitting Information Admitting Physician Requests: Admit Celestine Mendes Jul 04, 2017 14:59
[2017-07-04] MEDS ORDERED: SODIUM CHLORIDE 0.9% FLUSH 10 ML FLUSH IV FLUSH PRN ×2 (15:00→19:30)
[2017-07-04] MEDS ORDERED: MORPHINE SULFATE 8 MG/ML INJ IV PUSH ONE (15:00)
[2017-07-04] MEDS ORDERED: ONDANSETRON HCL 4 MG/2 ML VIAL IVP ONE (15:00)
[2017-07-04 15:23] VITALS: BP 187/89; PULSE 85; RESP 16; TEMP 100.7; TEMP 99.3; O2SAT 98
[2017-07-04 15:30] VITALS: O2SAT 100
[2017-07-04 16:01] LABS: AUTOMATED NEUTROPHIL # 9.4 TH/MM3 (1.8-7.7); BASOPHIL % 0.2 % (0.0-2.0); EOSINOPHIL # 0.1 TH/MM3 (0-0.4); EOSINOPHIL % 0.5 % (0.0-4.0); HEMATOCRIT 36.3 % (35.0-46.0); HEMO FLAGS DIFF FINAL; LYMPH % 15.7 % (9.0-44.0); LYMPHOCYTE # 1.9 TH/MM3 (1.0-4.8); MEAN CELL VOLUME 96.8 FL (80.0-100.0); MEAN CORPUSCULAR HEMOGLOBIN 34.1 PG (27.0-34.0); MEAN CORPUSCULAR HGB CONC 35.2 % (32.0-36.0); NEUT % 75.6 % (16.0-70.0); PLATELET COUNT 353 TH/MM3 (150-450); RED BLOOD COUNT 3.75 MIL/MM3 (4.00-5.30); RED CELL DISTRIBUTION WIDTH 16.2 % (11.6-17.2); WHITE BLOOD COUNT 12.4 TH/MM3 (4.0-11.0)
[2017-07-04 16:17] LABS: ALT (GPT) 18 U/L (10-53); ANION GAP 11 MEQ/L (5-15); AST (GOT) 23 U/L (15-37); BICARBONATE 23.4 MEQ/L (21.0-32.0); BLOOD UREA NITROGEN 14 MG/DL (7-18); CHLORIDE 103 MEQ/L (98-107); SODIUM (NA) 137 MEQ/L (136-145)
[2017-07-04 16:20] LABS: ALKALINE PHOSPHATASE 80 U/L (45-117); TOTAL BILIRUBIN ADULT 0.4 MG/DL (0.2-1.0)
[2017-07-04] MEDS ORDERED: MAXZ PO (17:06)
[2017-07-04] MEDS ORDERED: LOSA100T PO (17:06)
[2017-07-04] MEDS ORDERED: PRIS100T PO (17:06)
[2017-07-04] MEDS ORDERED: LEVO175T2 PO (17:06)
[2017-07-04] MEDS ORDERED: ALPR1TAB3 PO (17:06)
--- NOTE | 2017-07-04 18:45 | RADRPT ---
EXAM DATE/TIME: 07/04/2017 18:02 [facility] COMPARISON: CT ABDOMEN & PELVIS W/O CONTRAST, May 04, 2017, 8:33. CT ABDOMEN & PELVIS W CONTRAST, September 27, 2014, 18:14. INDICATIONS : Patient complains of abdominal pain. IV CONTRAST: 95 cc Omnipaque 350 (iohexol) IV ORAL CONTRAST: No oral contrast ingested. RADIATION DOSE: 13.13 CTDIvol (mGy) MEDICAL HISTORY : Cardiovascular disease. Cerebrovascular disease. Hypertension.ulcer,pancreatitis SURGICAL HISTORY : Appendectomy. Cholecystectomy.Hysterectomy. ENCOUNTER: Initial ACUITY: 1 day PAIN SCALE: 5/10 LOCATION: abdomen TECHNIQUE: Volumetric scanning of the abdomen and pelvis was performed. Using automated exposure control and ad justment of the mA and/or kV according to patient size, radiation dose was kept as low as reasonably achievable to obtain optimal diagnostic quality images. DICOM format image data is available electro nically for review and comparison. FINDINGS: LOWER LUNGS: Groundglass infiltrates are seen within the left lower lobe. Mild atelectasis within the right lower lobe. A moderate size hiatal hernia. LIVER: Multiple small hepatic cysts are again seen. No solid lesion or ductal dilatation. Portal vein is pat ent. Tiny gallstones within an otherwise normal-appearing gallbladder. SPLEEN: Normal size without lesion. Multiple granulomatous calcifications. PANCREAS: There is an acute inflammatory process involving the pancreas. This is most pronounced surrounding th e pancreatic body. Multiple parenchymal calcifications seen consistent with chronic pancreatitis. The re is dilatation of the pancreatic duct which is a new finding. The duct reaches a maximum diameter o f 6 mm. There are some many calcifications associated with the pancreatic head that I cannot exclude choledocholithiasis. No pseudocyst. No abscess. KIDNEYS: Normal in size and shape. There is no mass, stone or hydronephrosis. Multiple bilateral sub-1 cm cys ts. ADRENAL GLANDS: Within normal limits. VASCULAR: There is no aortic aneurysm. BOWEL/MESENTERY: The stomach, small bowel, and colon demonstrate no acute abnormality. There is no free intraperitone al air or fluid. ABDOMINAL WALL: Within normal limits. RETROPERITONEUM: There is no lymphadenopathy. BLADDER: No wall thickening or mass. REPRODUCTIVE: Within normal limits. Uterus is surgically absent. INGUINAL: There is no lymphadenopathy or hernia. MUSCULOSKELETAL: A degenerative lumbar spine. Orthopedic screw and intramedullary tulio involving the left hip. There is old trauma associated with this. CONCLUSION: 1. Acute on chronic pancreatitis. The pancreatic duct is dilated to 6 mm which is a new finding. Ther e are numerous parenchymal calcifications associated with the pancreatic head. I cannot completely ex clude choledocholithiasis. 2. Cholelithiasis. 3. Groundglass infiltrates involving the left lower lobe. I cannot exclude an infectious etiology. 4. Hiatal hernia. Sudarshan Raza Jr., MD on July 04, 2017 at 18:37 Board Certified Radiologist. This report was verified electronically.
[2017-07-04 18:47] LABS: BACTERIA, URINE RARE /hpf; BLOOD, URINE NEG (NEG); COMMENT (UR) CULT NOT INDICATED; CULTURE IF INDICATED CULT NOT INDICATED; GLUCOSE,URINE NEG (NEG); KETONE, URINE NEG (NEG); NITRITE,URINE NEG (NEG); PH, URINE 5.5 (5.0-8.5); SQUAMOUS EPITHELIAL CELL URINE 10 /hpf (0-5); URINE COLOR YELLOW (YELLW/STRAW)
[2017-07-04] MEDS ORDERED: NALOXONE HCL 0.4 MG/ML AMP IV PUSH PRN (19:30)
[2017-07-04 20:40] VITALS: PULSE 87
[2017-07-04 20:45] VITALS: BP 142/72; PULSE 77; RESP 16; TEMP 100; O2SAT 97
[2017-07-04] MEDS: SODIUM CHLORIDE 0.9% FLUSH 10 ML FLUSH IV FLUSH SCH (21:00)
[2017-07-04] MEDS: diphenhydrAMINE HCL 50 MG/ML VIAL IV PUSH PRN (21:44)
[2017-07-04] MEDS: HYDROmorphone HCL PF 0.5 MG/0.5 ML SYRINGE IV PUSH PRN (21:45)
[2017-07-05] VITALS (7 sets, daily range): BP systolic 139–171; BP diastolic 69–104; PULSE 69–81; RESP 16–18; TEMP 96.4–99.1; O2SAT 95–98
[2017-07-05] MEDS: HYDROmorphone HCL PF 0.5 MG/0.5 ML SYRINGE IV PUSH PRN ×2 (01:53→11:36)
[2017-07-05] MEDS: diphenhydrAMINE HCL 50 MG/ML VIAL IV PUSH PRN ×3 (03:58→20:57)
[2017-07-05] MEDS: ONDANSETRON HCL 4 MG/2 ML VIAL IVP PRN ×2 (03:58→11:37)
[2017-07-05] MEDS ORDERED: diphenhydrAMINE HCL 50 MG/ML VIAL IV PUSH ONE (06:15)
[2017-07-05 06:48] LABS: AUTOMATED NEUTROPHIL # 4.7 TH/MM3 (1.8-7.7); BASOPHIL % 0.4 % (0.0-2.0); EOSINOPHIL # 0.1 TH/MM3 (0-0.4); EOSINOPHIL % 1.2 % (0.0-4.0); HEMATOCRIT 34.6 % (35.0-46.0); HEMO FLAGS DIFF FINAL; LYMPH % 24.4 % (9.0-44.0); LYMPHOCYTE # 1.9 TH/MM3 (1.0-4.8); MEAN CELL VOLUME 98.3 FL (80.0-100.0); MEAN CORPUSCULAR HEMOGLOBIN 33.3 PG (27.0-34.0); MEAN CORPUSCULAR HGB CONC 33.8 % (32.0-36.0); MONO % 12.8 % (0.0-8.0); NEUT % 61.2 % (16.0-70.0); PLATELET COUNT 280 TH/MM3 (150-450); RED BLOOD COUNT 3.52 MIL/MM3 (4.00-5.30); RED CELL DISTRIBUTION WIDTH 16.6 % (11.6-17.2); WHITE BLOOD COUNT 7.6 TH/MM3 (4.0-11.0)
[2017-07-05 07:09] LABS: ALT (GPT) 15 U/L (10-53); ANION GAP 9 MEQ/L (5-15); AST (GOT) 21 U/L (15-37); BICARBONATE 22.8 MEQ/L (21.0-32.0); BLOOD UREA NITROGEN 13 MG/DL (7-18); CHLORIDE 104 MEQ/L (98-107); GLOMERULAR FILTRATION RATE 80 ML/MIN (>89); POTASSIUM 4.1 MEQ/L (3.5-5.1); SODIUM (NA) 136 MEQ/L (136-145)
[2017-07-05 07:11] LABS: ALKALINE PHOSPHATASE 72 U/L (45-117); TOTAL BILIRUBIN ADULT 0.7 MG/DL (0.2-1.0)
[2017-07-05] MEDS: SODIUM CHLORIDE 0.9% FLUSH 10 ML FLUSH IV FLUSH SCH ×2 (08:58→21:00)
--- NOTE | 2017-07-05 09:58 | EKG ---
Date Performed: 07/04/2017 Time Performed: 15:17:00 PTAGE: 72 years EKG: Sinus rhythm NORMAL ECG PREVIOUS TRACING : 05/31/2017 14.47 DOCTOR: Juan Hooks Interpretating Date/Time 07/05/2017 09:56:56
[2017-07-05] MEDS ORDERED: INFLUENZA VIRUS VACCINE (QUADRIVALENT) 0.5 ML SYR IM ONE (10:00)
--- NOTE | 2017-07-05 10:05 | RADRPT ---
EXAM DATE/TIME: 07/05/2017 09:17 [facility] COMPARISON: CT ABDOMEN & PELVIS W CONTRAST, July 04, 2017, 18:02. INDICATIONS : Abdominal pain. MEDICAL HISTORY : Hypothyroidism. Inflammatory bowel disease. Pancreatitis. Hearing loss. CVA. Seizures. Head trauma. S yncope. Migraines. Coronary artery disease. Ulcer. HTN. GERD. Arthritis. Osteoporosis. Liver disease. Left breast cancer. Rheumatoid arthritis. Depression. Anxiety. Anticoagulant therapy, Aspirin. SURGICAL HISTORY : Appendectomy. Hysterectomy. Cholecystectomy. Radiation therapy. Blood transfusions. ENCOUNTER: Initial ACUITY: 2 days PAIN SCORE: 6/10 LOCATION: Abdomen. MEASUREMENTS: LIVER: 14.6 cm length COMMON DUCT: 5 mm RIGHT KIDNEY: 9.6 x 5.2 x 5.4 cm LEFT KIDNEY: 10.0 x 6.1 x 4.6 cm SPLEEN: 9.0 cm length AORTA: 2.2cm maximal FINDINGS: LIVER: Normal echotexture without focal lesion or ductal dilatation. COMMON DUCT: No intraluminal mass or stone visualized. GALLBLADDER: There are at least 2 small stones identified within the gallbladder. No wall thickening or pericholec ystic fluid is present. Sonographic Thomas sign is negative. PANCREAS: The main pancreatic duct is dilated measuring up to 6 mm. There are calcifications in the pancreatic head. RIGHT KIDNEY: No hydronephrosis, stone or mass. There are 2 simple appearing benign cysts identified. At the upper pole measuring 18 mm in the midportion measuring 12 mm. LEFT KIDNEY: No hydronephrosis, stone or mass. SPLEEN: No focal lesion. There are multiple punctate echogenic foci representing calcified granulomas. AORTA: Non aneurysmal. There is mild atherosclerotic disease. IVC: Within normal limits. CONCLUSION: 1. Cholelithiasis. However, no common bile duct stones are visualized. 2. Main pancreatic duct is dilated and there are calcifications in the pancreatic head indicating chr onic pancreatitis. Yesterday's CT scan also demonstrated inflammation indicating acute pancreatitis. Estevan Graham MD on July 05, 2017 at 9:51 Board Certified Radiologist. This report was verified electronically.
--- NOTE | 2017-07-05 11:28 | PD.CONS ---
HPI History of Present Illness This is a 72 year old female who presented to the emergency room for evaluation of abdominal pain. She has a history of chronic pancreatitis, gastric ulcers, GERD, alcohol abuse, TIA, atrial fibrillation, hypertension, hypothyroidism, and depression. She drinks 2-3 Garrett Moreau a night and reports that she has had 2 prior episodes of pancreatitis, but denies any issues with chronic pancreatitis. She was awakened with severe abdominal pain in her epigastric area. She describes this as a dull ache that is aggravated by movement. She reports that she has not had anything to eat or drink since her pain began, so she is unsure if it is aggravated by food intake. She has associated nausea without vomiting. She denies any fever or chills. She does have heartburn/ reflux, but states that it is well controlled with Nexium. She does report intermittent loose stools "whenever I'm sick." No GI Bleeding. She last had an EGD (05/23/17)----> Significant duodenal wall edema and congestion with thickened folds, s/p biopsies. No obstruction. Moderate antral gastritis s/p biopsy to rule out H. Pylori. Pathology revealed duodenal mucosa with mild villous hypertrophy, mild chronic gastritis, negative for helicobacter pylori. She reports that she has never been told that her pancreatitis was related to alcohol abuse and states that she has no intentions of stopping. (Janeth Domingo) PFSH Past Medical History Chronic pancreatitis secondary to ETOH Arthritis Anxiety/Depression Atrial fibrillation Left breast cancer, s/p mastectomy and radiation Gastric ulcer GERD/Duodenitis HTN Hypothyroidism ETOH abuse TIA/CVA Past Surgical History IM nailing left hip Facial surgery Hysterectomy Sinus surgery EGD Laceration repair (Janeth Domingo) Coded Allergies: Sulfa (Sulfonamide Antibiotics) (Unverified Allergy, Intermediate, rash, ) Medications Allergies Coded Allergies Type Severity Reaction Last Updated Verified Sulfa (Sulfonamide Antibiotics) Allergy Intermediate rash 04/11/17 No Active Scripts Medications Dose Route/Sig Max Daily Dose Days Date Category Maxzide (Triamterene/HCTZ) 75-50 Mg Tab 1 Tab PO DAILY 07/04/17 Reported Losartan (Losartan Potassium) 100 Mg Tab 100 Mg PO DAILY 07/04/17 Reported Alprazolam 1 Mg Tab 1 Mg PO HS PRN 07/04/17 Reported Levothyroxine (Levothyroxine Sodium) 175 Mcg Tab 175 Mcg PO DAILY 07/04/17 Reported Pristiq 24 HR (Desvenlafaxine ER 24 HR) 100 Mg Tab 100 Mg PO DAILY 07/04/17 Reported Zofran Odt (Ondansetron Odt) 4 Mg Tab 4 Mg SL Q8HR PRN 05/31/17 Rx Dok (Docusate Sodium) 100 Mg Cap 100 Mg PO BID 11/21/16 Rx Thera/Beta-Carotene (Multiple Vitamin) 1 Tab Tab 1 Tab PO DAILY 11/21/16 Rx Effexor XR 24 HR (Venlafaxine HCl) 75 Mg Cap 150 Mg PO DAILY 11/21/16 Rx Vitamin D3 (Cholecalciferol) 5,000 Unit Cap 5,000 Units PO DAILY 11/21/16 Rx Nexium (Esomeprazole DR) 40 Mg Capdr 40 Mg PO DAILY 11/21/16 Rx Family History States that her mother had an issue with her gallbladder and pancreatitis. Social History Drinks 2-3 Garrett Moreau per day No tobacco No illicit drug use (Janeth Domingo) Review of Systems Constitutional: DENIES: Fatigue, Fever, Chills Respiratory: DENIES: Cough, Shortness of breath Gastrointestinal: COMPLAINS OF: Abdominal pain, Diarrhea, Nausea, Heartburn, DENIES: Black stools, Bloody stools, Constipation, Vomiting Integumentary: DENIES: Abnormal pigmentation Neurologic: DENIES: Headache Psychiatric: DENIES: Confusion (Janeth Domingo) GI Exam Vitals I&O Vital Signs Date Time Temp Pulse Resp B/P (MAP) Pulse Ox O2 Delivery O2 Flow Rate FiO2 07/05/17 07:42 98.7 69 17 142/69 (93) 98 07/05/17 04:00 98.0 71 16 139/87 (104) 98 07/05/17 00:00 99.1 81 18 150/81 (104) 96 07/04/17 20:45 100.0 77 16 142/72 (95) 97 07/04/17 20:40 87 07/04/17 15:30 100 Room Air 07/04/17 15:23 99.3 85 16 187/89 (121) 98 I/O 07/04/17 07/04/17 07/04/17 07/05/1717 11/8/17 07:00 15:00 23:00 07:00 15:00 23:00 Intake Total 1000 ml 165 ml Balance 1000 ml 165 ml Intake Oral 0 ml 165 ml IV Total 1000 ml # Voids 0 2 # Bowel Movements 0 0 Imaging Last Impressions Abdomen Ultrasound 07/05/17 0000 Signed Impressions: Service Date/Time: Wednesday, July 05, 2017 09:17 - CONCLUSION: 1. Cholelithiasis. However, no common bile duct stones are visualized. 2. Main pancreatic duct is dilated and there are calcifications in the pancreatic head indicating chronic pancreatitis. Yesterday's CT scan also demonstrated inflammation indicating acute pancreatitis. Estevan Graham MD Abdomen/Pelvis CT 07/04/17 1456 Signed Impressions: Service Date/Time: Tuesday, July 04, 2017 18:02 - CONCLUSION: 1. Acute on chronic pancreatitis. The pancreatic duct is dilated to 6 mm which is a new finding. There are numerous parenchymal calcifications associated with the pancreatic head. I cannot completely exclude choledocholithiasis. 2. Cholelithiasis. 3. Groundglass infiltrates involving the left lower lobe. I cannot exclude an infectious etiology. 4. Hiatal hernia. Sudarshan Raza Jr., MD Laboratory Test 07/04/17 15:30 07/04/17 18:20 07/05/17 06:15 White Blood Count 12.4 TH/MM3 7.6 TH/MM3 Red Blood Count 3.75 MIL/MM3 3.52 MIL/MM3 Hemoglobin 12.8 GM/DL 11.7 GM/DL Hematocrit 36.3 % 34.6 % Mean Corpuscular Volume 96.8 FL 98.3 FL Mean Corpuscular Hemoglobin 34.1 PG 33.3 PG Mean Corpuscular Hemoglobin Concent 35.2 % 33.8 % Red Cell Distribution Width 16.2 % 16.6 % Platelet Count 353 TH/MM3 280 TH/MM3 Mean Platelet Volume 7.5 FL 7.5 FL Neutrophils (%) (Auto) 75.6 % 61.2 % Lymphocytes (%) (Auto) 15.7 % 24.4 % Monocytes (%) (Auto) 8.0 % 12.8 % Eosinophils (%) (Auto) 0.5 % 1.2 % Basophils (%) (Auto) 0.2 % 0.4 % Neutrophils # (Auto) 9.4 TH/MM3 4.7 TH/MM3 Lymphocytes # (Auto) 1.9 TH/MM3 1.9 TH/MM3 Monocytes # (Auto) 1.0 TH/MM3 1.0 TH/MM3 Eosinophils # (Auto) 0.1 TH/MM3 0.1 TH/MM3 Basophils # (Auto) 0.0 TH/MM3 0.0 TH/MM3 CBC Comment DIFF FINAL DIFF FINAL Differential Comment Blood Urea Nitrogen 14 MG/DL 13 MG/DL Creatinine 0.70 MG/DL 0.72 MG/DL Random Glucose 86 MG/DL 88 MG/DL Total Protein 7.3 GM/DL 6.3 GM/DL Albumin 3.2 GM/DL 2.8 GM/DL Calcium Level 9.2 MG/DL 8.6 MG/DL Alkaline Phosphatase 80 U/L 72 U/L Aspartate Amino Transf (AST/SGOT) 23 U/L 21 U/L Alanine Aminotransferase (ALT/SGPT) 18 U/L 15 U/L Total Bilirubin 0.4 MG/DL 0.7 MG/DL Sodium Level 137 MEQ/L 136 MEQ/L Potassium Level 4.0 MEQ/L 4.1 MEQ/L Chloride Level 103 MEQ/L 104 MEQ/L Carbon Dioxide Level 23.4 MEQ/L 22.8 MEQ/L Anion Gap 11 MEQ/L 9 MEQ/L Lipase 6793 U/L 2592 U/L Urine Color YELLOW Urine Turbidity HAZY Urine pH 5.5 Urine Specific [place] 1.021 Urine Protein TRACE mg/dL Urine Glucose (UA) NEG mg/dL Urine Ketones NEG mg/dL Urine Occult Blood NEG Urine Nitrite NEG Urine Bilirubin NEG Urine Urobilinogen LESS THAN 2.0 MG/DL Urine Leukocyte Esterase NEG Urine RBC 1 /hpf Urine WBC 1 /hpf Urine Squamous Epithelial Cells 10 /hpf Urine Bacteria RARE /hpf Microscopic Urinalysis Comment CULT NOT INDICATED Estimat Glomerular Filtration Rate 80 ML/MIN Physical Examination HEENT: Normocephalic; atraumatic; no jaundice. CHEST: Resp. even/unlabored, CTA CARDIAC: RRR ABDOMEN: Soft, nondistended, no hepatosplenomegaly; bowel sounds are present in all four quadrants. EXTREMITIES: No clubbing, cyanosis, or edema. SKIN: Normal; no rash; no jaundice. GUNITE MIXER: No focal deficits; alert and oriented times three. (Janeth Domingo) Assessment and Plan Plan ASSESSMENT: - Acute on chronic pancreatitis, secondary to ETOH abuse. Pt drinks 2-3 Garrett Moreau per night. She reports 2 prior episodes of pancreatitis. US (07/05/17)---> Cholelithiasis, However, no CBD stones are visualized. Main pancreatic duct is dilated and there are calcifications in the pancreatic head indicating chronic pancreatitis. Yesterday's CT scan also demonstrated inflammation indicating acute pancreatitis. Abdomen/Pelvis CT Scan (07/04/17)---> Acute on chronic pancreatitis. The pancreatic duct is dilated to 6 mm which a new finding. There are numerous parenchymal calcifications associated with the pancreatic head. I cannot completely exclude choledocholithiasis, cholelithiasis, groundglass infiltrates involving the left lower lobe. I cannot exclude an infectious etiology, HH. Will add IVF, PPI, recommend complete ETOH cessation- patient is not receptive to this. - GERD. Controlled with nexium at home. EGD (05/23/17)----> Significant duodenal wall edema and congestion with thickened folds, s/p biopsies. No obstruction. Moderate antral gastritis s/p biopsy to rule out H. Pylori. Pathology revealed duodenal mucosa with mild villous hypertrophy, mild chronic gastritis, negative for helicobacter pylori. - Arthritis, Anxiety/Depression, HTN, Hypothyroidism. PLAN: - NPO except ice chips. - Protonix 40mg IV daily - Add NS at 120cc/hr - CBC, CMP, Lipase in am - Supportive care - Recommend complete ETOH cessation, patient is not receptive - Further recommendations to follow based on results of above - Pt seen and examined by Dr. Garcia and myself and this note is written on his behalf (Janeth Domingo) Physician Comments Seen and examined, plan as above. Will follow up with you. Thank you. (oLli Garcia MD) Janeth Domingo Jul 05, 2017 11:28 Loli Garcia MD Jul 05, 2017 14:05
--- NOTE | 2017-07-05 11:45 | HHI.HP ---
[facility] Maxi Branch MD Admission Diagnosis acute pancreatitis Diagnoses: (1) Cholelithiasis (2) Acute recurrent pancreatitis Chief Complaint: Abdominal pain Travel History International Travel<30 Days: No Contact w/Intl Traveler <30 Da: No Traveled to Known Affected Are: No History of Present Illness 72 year-old female with a history of chronic pancreatitis presented to the ED yesterday for evaluation of an acute onset of abdominal pain rated over 8/10 in intensity associated with nausea and vomiting without any radiation. CT abdomen revealed acute on chronic pancreatitis, and pancreatitis duct dilated to 6 mm as well as numerous gallstones. Patient reports history of daily alcohol consumption. Currently denies any chest pain or shortness of breath as well as GI bleed. Review of Systems Except as stated in HPI: all other systems reviewed are Neg Past Family Social History Past Medical History Chronic pancreatitis Arthritis Anxiety/Depression Atrial fibrillation Left breast cancer Gastric ulcer GERD/Duodenitis HTN Hypothyroidism ETOH abuse TIA/CVA Past Surgical History IM nailing left hip Facial surgery Hysterectomy Sinus surgery Reported Medications see EMR Allergies: Coded Allergies: Sulfa (Sulfonamide Antibiotics) (Unverified Allergy, Intermediate, rash, ) Family History Father had history of kidney cancer Mother had history of pancreatitis Social History Alcohol Use: Yes Tobacco Use: No Substance Use: No Physical Exam Vital Signs Vital Signs Date Time Temp Pulse Resp B/P (MAP) Pulse Ox O2 Delivery O2 Flow Rate FiO2 07/05/17 07:42 98.7 69 17 142/69 (93) 98 07/05/17 04:00 98.0 71 16 139/87 (104) 98 07/05/17 00:00 99.1 81 18 150/81 (104) 96 07/04/17 20:45 100.0 77 16 142/72 (95) 97 07/04/17 20:40 87 07/04/17 15:30 100 Room Air 07/04/17 15:23 99.3 85 16 187/89 (121) 98 Physical Exam GENERAL: This is a well-nourished, well-developed patient, in no apparent distress. SKIN: No rashes, ecchymoses or lesions. Cool and dry. HEAD: Atraumatic. Normocephalic. No temporal or scalp tenderness. EYES: Pupils equal round and reactive. Extraocular motions intact. No scleral icterus. No injection or drainage. ENT: Nose without bleeding, purulent drainage or septal hematoma. Throat without erythema, tonsillar hypertrophy or exudate. Uvula midline. Airway patent. NECK: Trachea midline. No JVD or lymphadenopathy. Supple, nontender, no meningeal signs. CARDIOVASCULAR: Regular rate and rhythm without murmurs, gallops, or rubs. RESPIRATORY: Clear to auscultation. Breath sounds equal bilaterally. No wheezes , rales, or rhonchi. GASTROINTESTINAL: Abdomen soft, non-tender, nondistended. No hepato-splenomegaly , or palpable masses. No guarding. MUSCULOSKELETAL: Extremities without clubbing, cyanosis, or edema. No joint tenderness, effusion, or edema noted. No calf tenderness. Negative Homans sign bilaterally. NEUROLOGICAL: Awake and alert. Cranial nerves II through XII intact. Motor and sensory grossly within normal limits. Five out of 5 muscle strength in all muscle groups. Normal speech. Laboratory Laboratory Tests Test 07/04/17 15:30 07/04/17 18:20 07/05/17 06:15 White Blood Count 12.4 7.6 Red Blood Count 3.75 3.52 Hemoglobin 12.8 11.7 Hematocrit 36.3 34.6 Mean Corpuscular Volume 96.8 98.3 Mean Corpuscular Hemoglobin 34.1 33.3 Mean Corpuscular Hemoglobin Concent 35.2 33.8 Red Cell Distribution Width 16.2 16.6 Platelet Count 353 280 Mean Platelet Volume 7.5 7.5 Neutrophils (%) (Auto) 75.6 61.2 Lymphocytes (%) (Auto) 15.7 24.4 Monocytes (%) (Auto) 8.0 12.8 Eosinophils (%) (Auto) 0.5 1.2 Basophils (%) (Auto) 0.2 0.4 Neutrophils # (Auto) 9.4 4.7 Lymphocytes # (Auto) 1.9 1.9 Monocytes # (Auto) 1.0 1.0 Eosinophils # (Auto) 0.1 0.1 Basophils # (Auto) 0.0 0.0 CBC Comment DIFF FINAL DIFF FINAL Differential Comment Blood Urea Nitrogen 14 13 Creatinine 0.70 0.72 Random Glucose 86 88 Total Protein 7.3 6.3 Albumin 3.2 2.8 Calcium Level 9.2 8.6 Alkaline Phosphatase 80 72 Aspartate Amino Transf (AST/SGOT) 23 21 Alanine Aminotransferase (ALT/SGPT) 18 15 Total Bilirubin 0.4 0.7 Sodium Level 137 136 Potassium Level 4.0 4.1 Chloride Level 103 104 Carbon Dioxide Level 23.4 22.8 Anion Gap 11 9 Lipase 6793 2592 Urine Color YELLOW Urine Turbidity HAZY Urine pH 5.5 Urine Specific [place] 1.021 Urine Protein TRACE Urine Glucose (UA) NEG Urine Ketones NEG Urine Occult Blood NEG Urine Nitrite NEG Urine Bilirubin NEG Urine Urobilinogen LESS THAN 2.0 Urine Leukocyte Esterase NEG Urine RBC 1 Urine WBC 1 Urine Squamous Epithelial Cells 10 Urine Bacteria RARE Microscopic Urinalysis Comment CULT NOT INDICATED Estimat Glomerular Filtration Rate 80 Result Diagram: 07/05/17 0615 07/05/17 0615 Imaging Last Impressions Abdomen Ultrasound 07/05/17 0000 Signed Impressions: Service Date/Time: Wednesday, July 05, 2017 09:17 - CONCLUSION: 1. Cholelithiasis. However, no common bile duct stones are visualized. 2. Main pancreatic duct is dilated and there are calcifications in the pancreatic head indicating chronic pancreatitis. Yesterday's CT scan also demonstrated inflammation indicating acute pancreatitis. Estevan Graham MD Abdomen/Pelvis CT 07/04/17 1456 Signed Impressions: Service Date/Time: Tuesday, July 04, 2017 18:02 - CONCLUSION: 1. Acute on chronic pancreatitis. The pancreatic duct is dilated to 6 mm which is a new finding. There are numerous parenchymal calcifications associated with the pancreatic head. I cannot completely exclude choledocholithiasis. 2. Cholelithiasis. 3. Groundglass infiltrates involving the left lower lobe. I cannot exclude an infectious etiology. 4. Hiatal hernia. Sudarshan Raza Jr., MD Caprini VTE Risk Assessment Caprini VTE Risk Assessment: Mod/High Risk (score >= 2) Caprini Risk Assessment Model Point Value = 1 Point Value = 2 Point Value = 3 Point Value = 5 Age 41-60 Minor surgery BMI > 25 kg/m2 Swollen legs Varicose veins or History of unexplained or recurrent spontaneous Oral contraceptives or hormone replacement Sepsis (< 1 month) Serious lung disease, including pneumonia (< 1 month) Abnormal pulmonary function Acute myocardial infarction Congestive heart failure (< 1 month) History of inflammatory bowel disease Medical patient at bed rest Age 61-74 Arthroscopic surgery Major open surgery (> 45 min) Laparoscopic surgery (> 45 min) Malignancy Confined to bed (> 72 hours) Immobilizing plaster cast Central venous access Age >= 75 History of VTE Family history of VTE Factor V Leiden Prothrombin [id number] Lupus anticoagulant Anticardiolipin antibodies Elevated serum homocysteine Heparin-induced thrombocytopenia Other congenital or acquired thrombophilia Stroke (< 1 month) Elective arthroplasty Hip, pelvis, or leg fracture Acute spinal cord injury (< 1 month) Prophylaxis Regimen Total Risk Factor Score Risk Level Prophylaxis Regimen 0-1 Low Early ambulation 2 Moderate Order ONE of the following: *Sequential Compression Device (SCD) *Heparin 5000 units SQ BID 3-4 Higher Order ONE of the following medications: *Heparin 5000 units SQ TID *Enoxaparin/Lovenox 40 mg SQ daily (WT < 150 kg, CrCl > 30 mL/min) *Enoxaparin/Lovenox 30 mg SQ daily (WT < 150 kg, CrCl > 10-29 mL/min) *Enoxaparin/Lovenox 30 mg SQ BID (WT < 150 kg, CrCl > 30 mL/min) AND/OR *Sequential Compression Device (SCD) 5 or more Highest Order ONE of the following medications: *Heparin 5000 units SQ TID (Preferred with Epidurals) *Enoxaparin/Lovenox 40 mg SQ daily (WT < 150 kg, CrCl > 30 mL/min) *Enoxaparin/Lovenox 30 mg SQ daily (WT < 150 kg, CrCl > 10-29 mL/min) *Enoxaparin/Lovenox 30 mg SQ BID (WT < 150 kg, CrCl > 30 mL/min) AND *Sequential Compression Device (SCD) Assessment and Plan Problem List: (1) Acute recurrent pancreatitis ICD Code: K85.90 - Acute pancreatitis without necrosis or infection, unspecified (2) Cholelithiasis ICD Code: K80.20 - Calculus of gallbladder without cholecystitis without obstruction Assessment and Plan 72-year-old female with Acute recurrent pancreatitis Cholelithiasis CT abdomen noted and review by me with finding of acute on chronic pancreatitis, pancreatitis duct dilated 6 mm Check gallbladder ultrasound Pain management accordingly with parenteral medication Monitor lipase level GI consultation pending for further evaluation for possible MRCP versus ERCP May consider consultation to general surgery Alcohol cessation advised Continue with IV fluid hydration, nothing by mouth DVT prophylaxis: Bilateral SCDs GI prophylaxis: PPI Code Status Full code Discussed Condition With Patient Physician Certification 2 Midnight Certification Type: Admission for Inpatient Services Order for Inpatient Services The services are ordered in accordance with Medicare regulations or non- Medicare payer requirements, as applicable. In the case of services not specified as inpatient-only, they are appropriately provided as inpatient services in accordance with the 2-midnight benchmark. Estimated LOS (days): 2 days is the estimated time the patient will need to remain in the hospital, assuming treatment plan goals are met and no additional complications. Post-Hospital Plan: Not yet determined Mohinder Park MD Jul 05, 2017 11:45
[2017-07-05] MEDS ORDERED: FLUMAZENIL 0.5 MG/5 ML VIAL IV PUSH PRN (12:15)
[2017-07-05] MEDS ORDERED: LORazepam 2 MG/ML VIAL IV PUSH PRN ×4 (12:15)
[2017-07-05] MEDS ORDERED: LORazepam 1 MG TAB PO PRN (12:15)
[2017-07-05] MEDS ORDERED: RESP: ALBUTEROL 2.5 MG/IPRATROPIUM 0.5 MG NEB (PRN) NEB (12:15)
[2017-07-05] MEDS ORDERED: LORazepam 2 MG TAB PO PRN (12:15)
[2017-07-05] MEDS ORDERED: ENALAPRILAT 2.5 MG/2 ML VIAL IV PUSH PRN (12:15)
[2017-07-05] MEDS ORDERED: ALPRAZolam 1 MG TAB PO PRN (12:30)
[2017-07-05] MEDS ORDERED: SODIUM CHLOR 0.9% 1000 ML INJ 1,000 ML IV SCH (12:30)
[2017-07-05] MEDS: SODIUM CHLOR 0.9% 1000 ML INJ 1,000 ML IV SCH (13:00)
[2017-07-05] MEDS: KETOROLAC TROMETHAMINE 30 MG/ML (IVP) VIAL IV PUSH PRN (16:13)
[2017-07-05] MEDS: PANTOPRAZOLE SODIUM 40 MG VIAL IV PUSH SCH (16:14)
[2017-07-06] VITALS (9 sets, daily range): BP systolic 137–178; BP diastolic 79–97; PULSE 73–102; RESP 18–19; TEMP 97.9–98.9; O2SAT 95–99
[2017-07-06] MEDS: KETOROLAC TROMETHAMINE 30 MG/ML (IVP) VIAL IV PUSH PRN ×2 (00:01→21:09)
[2017-07-06] MEDS: PANTOPRAZOLE SODIUM 40 MG VIAL IV PUSH SCH ×2 (03:00→15:00)
[2017-07-06] MEDS: SODIUM CHLOR 0.9% 1000 ML INJ 1,000 ML IV SCH ×2 (05:40→14:00)
[2017-07-06] MEDS: LEVOTHYROXINE SODIUM 100 MCG TAB PO SCH (06:19)
[2017-07-06] MEDS: LEVOTHYROXINE SODIUM 75 MCG TAB PO SCH (06:20)
[2017-07-06 07:44] LABS: BASOPHIL % 0.5 % (0.0-2.0); EOSINOPHIL # 0.2 TH/MM3 (0-0.4); EOSINOPHIL % 2.7 % (0.0-4.0); HEMATOCRIT 37.9 % (35.0-46.0); HEMO FLAGS DIFF FINAL; LYMPH % 15.2 % (9.0-44.0); LYMPHOCYTE # 1.2 TH/MM3 (1.0-4.8); MEAN CELL VOLUME 98.5 FL (80.0-100.0); MEAN CORPUSCULAR HGB CONC 34.6 % (32.0-36.0); MONO % 7.4 % (0.0-8.0); NEUT % 74.2 % (16.0-70.0); PLATELET COUNT 289 TH/MM3 (150-450); RED BLOOD COUNT 3.85 MIL/MM3 (4.00-5.30); RED CELL DISTRIBUTION WIDTH 15.8 % (11.6-17.2)
[2017-07-06 08:02] LABS: ALT (GPT) 13 U/L (10-53); ANION GAP 9 MEQ/L (5-15); AST (GOT) 19 U/L (15-37); BICARBONATE 24.7 MEQ/L (21.0-32.0); BLOOD UREA NITROGEN 13 MG/DL (7-18); CHLORIDE 102 MEQ/L (98-107); GLOMERULAR FILTRATION RATE 79 ML/MIN (>89); POTASSIUM 3.5 MEQ/L (3.5-5.1); SODIUM (NA) 136 MEQ/L (136-145)
[2017-07-06 08:04] LABS: ALKALINE PHOSPHATASE 82 U/L (45-117); TOTAL BILIRUBIN ADULT 0.8 MG/DL (0.2-1.0)
[2017-07-06] MEDS ORDERED: DESVENLAFAXINE 100 MG PO SCH (09:00)
[2017-07-06] MEDS ORDERED: VENLAFAXINE HCL XR 75 MG CAP PO SCH (09:00)
[2017-07-06] MEDS ORDERED: NON-FORMULARY DRUG (Levothyroxine 175 MCG) PO SCH (09:00)
[2017-07-06] MEDS: SODIUM CHLORIDE 0.9% FLUSH 10 ML FLUSH IV FLUSH SCH ×2 (09:00→20:47)
[2017-07-06] MEDS ORDERED: PANTOPRAZOLE SODIUM 40 MG VIAL IV PUSH SCH (09:00)
[2017-07-06] MEDS: ONDANSETRON HCL 4 MG/2 ML VIAL IVP PRN (10:07)
[2017-07-06] MEDS: TRIAMTERENE/HCTZ 75 MG/50 MG TAB PO SCH (10:07)
[2017-07-06] MEDS: LOSARTAN 50 MG TAB PO SCH (10:08)
--- NOTE | 2017-07-06 14:53 | HHI.PR ---
Subjective Remarks Follow-up Acute recurrent pancreatitis 07/06/17-patient seen and examined, reports significant improvement of abdominal pain. Would like to try some liquid. Complaint of possible sinus infection however patient currently afebrile Objective Vitals Vital Signs Date Time Temp Pulse Resp B/P (MAP) Pulse Ox O2 Delivery O2 Flow Rate FiO2 07/06/17 11:43 98.7 76 19 159/80 (106) 97 07/06/17 10:03 76 07/06/17 07:37 98.9 79 19 171/94 (119) 96 07/06/17 03:25 98.2 73 18 163/88 (113) 98 07/06/17 02:00 137/97 (110) 07/05/17 23:55 97.1 70 18 171/104 (126) 95 07/05/17 20:09 96.4 69 16 166/87 (113) 97 07/05/17 17:14 16 07/05/17 16:30 98.9 71 17 154/92 (112) 97 I/O 07/05/17 07/05/17 07/05/17 07/06/17 07/06/17 07/06/17 07:00 15:00 23:00 07:00 15:00 23:00 Intake Total 165 ml 0 ml 0 ml 0 ml 10 ml Balance 165 ml 0 ml 0 ml 0 ml 10 ml Intake Oral 165 ml 0 ml 0 ml 0 ml 10 ml # Voids 2 3 3 2 3 # Bowel Movements 0 0 0 0 0 Result Diagram: 07/06/17 0642 07/06/17 0642 Imaging Last Impressions Abdomen Ultrasound 07/05/17 0000 Signed Impressions: Service Date/Time: Wednesday, July 05, 2017 09:17 - CONCLUSION: 1. Cholelithiasis. However, no common bile duct stones are visualized. 2. Main pancreatic duct is dilated and there are calcifications in the pancreatic head indicating chronic pancreatitis. Yesterday's CT scan also demonstrated inflammation indicating acute pancreatitis. Estevan Graham MD Abdomen/Pelvis CT 07/04/17 1456 Signed Impressions: Service Date/Time: Tuesday, July 04, 2017 18:02 - CONCLUSION: 1. Acute on chronic pancreatitis. The pancreatic duct is dilated to 6 mm which is a new finding. There are numerous parenchymal calcifications associated with the pancreatic head. I cannot completely exclude choledocholithiasis. 2. Cholelithiasis. 3. Groundglass infiltrates involving the left lower lobe. I cannot exclude an infectious etiology. 4. Hiatal hernia. Sudarshan Raza Jr., MD Objective Remarks GENERAL: NAD SKIN: Warm and dry. HEAD: Normocephalic. EYES: No scleral icterus. No injection or drainage. NECK: Supple, trachea midline. No JVD or lymphadenopathy. CARDIOVASCULAR: Regular rate and rhythm without murmurs, gallops, or rubs. RESPIRATORY: Breath sounds equal bilaterally. No accessory muscle use. GASTROINTESTINAL: Abdomen soft, non-tender, nondistended. MUSCULOSKELETAL: No cyanosis, or edema. BACK: Nontender without obvious deformity. No CVA tenderness. A/P Problem List: (1) Acute recurrent pancreatitis ICD Code: K85.90 - Acute pancreatitis without necrosis or infection, unspecified (2) Cholelithiasis ICD Code: K80.20 - Calculus of gallbladder without cholecystitis without obstruction Assessment and Plan 72-year-old female with Acute recurrent pancreatitis Cholelithiasis CT abdomen with finding of acute on chronic pancreatitis, pancreatitis duct dilated 6 mm Pain management accordingly with parenteral medication Monitor lipase level GI consultation appreciated Alcohol cessation advised Continue with IV fluid hydration, start clear liquids DVT prophylaxis: Bilateral SCDs GI prophylaxis: PPI Mohinder Park MD Jul 06, 2017 14:53
--- NOTE | 2017-07-06 15:47 | HHI.GIFU ---
Subjective Remarks Resting in bed. Denies any pain today. No n/v. Tolerating clear liquids. Hoping to go home tomorrow. (Janeth Domingo) Objective Vitals I&O Vital Signs Date Time Temp Pulse Resp B/P (MAP) Pulse Ox O2 Delivery O2 Flow Rate FiO2 07/06/17 11:43 98.7 76 19 159/80 (106) 97 07/06/17 10:03 76 07/06/17 07:37 98.9 79 19 171/94 (119) 96 07/06/17 03:25 98.2 73 18 163/88 (113) 98 07/06/17 02:00 137/97 (110) 07/05/17 23:55 97.1 70 18 171/104 (126) 95 07/05/17 20:09 96.4 69 16 166/87 (113) 97 07/05/17 17:14 16 07/05/17 16:30 98.9 71 17 154/92 (112) 97 I/O 07/05/17 07/05/17 07/05/17 07/06/17 07/06/17 07/06/17 07:00 15:00 23:00 07:00 15:00 23:00 Intake Total 165 ml 0 ml 0 ml 0 ml 430 ml Balance 165 ml 0 ml 0 ml 0 ml 430 ml Intake Oral 165 ml 0 ml 0 ml 0 ml 10 ml IV Total 420 ml # Voids 2 3 3 2 3 # Bowel Movements 0 0 0 0 0 Laboratory Laboratory Tests Test 07/06/17 06:42 White Blood Count 8.0 Red Blood Count 3.85 Hemoglobin 13.1 Hematocrit 37.9 Mean Corpuscular Volume 98.5 Mean Corpuscular Hemoglobin 34.0 Mean Corpuscular Hemoglobin Concent 34.6 Red Cell Distribution Width 15.8 Platelet Count 289 Mean Platelet Volume 7.6 Neutrophils (%) (Auto) 74.2 Lymphocytes (%) (Auto) 15.2 Monocytes (%) (Auto) 7.4 Eosinophils (%) (Auto) 2.7 Basophils (%) (Auto) 0.5 Neutrophils # (Auto) 6.0 Lymphocytes # (Auto) 1.2 Monocytes # (Auto) 0.6 Eosinophils # (Auto) 0.2 Basophils # (Auto) 0.0 CBC Comment DIFF FINAL Differential Comment Blood Urea Nitrogen 13 Creatinine 0.73 Random Glucose 76 Total Protein 7.1 Albumin 3.1 Calcium Level 8.9 Alkaline Phosphatase 82 Aspartate Amino Transf (AST/SGOT) 19 Alanine Aminotransferase (ALT/SGPT) 13 Total Bilirubin 0.8 Sodium Level 136 Potassium Level 3.5 Chloride Level 102 Carbon Dioxide Level 24.7 Anion Gap 9 Estimat Glomerular Filtration Rate 79 Lipase 676 Imaging Last Impressions Abdomen Ultrasound 07/05/17 0000 Signed Impressions: Service Date/Time: Wednesday, July 05, 2017 09:17 - CONCLUSION: 1. Cholelithiasis. However, no common bile duct stones are visualized. 2. Main pancreatic duct is dilated and there are calcifications in the pancreatic head indicating chronic pancreatitis. Yesterday's CT scan also demonstrated inflammation indicating acute pancreatitis. Estevan Graham MD Abdomen/Pelvis CT 07/04/17 1456 Signed Impressions: Service Date/Time: Tuesday, July 04, 2017 18:02 - CONCLUSION: 1. Acute on chronic pancreatitis. The pancreatic duct is dilated to 6 mm which is a new finding. There are numerous parenchymal calcifications associated with the pancreatic head. I cannot completely exclude choledocholithiasis. 2. Cholelithiasis. 3. Groundglass infiltrates involving the left lower lobe. I cannot exclude an infectious etiology. 4. Hiatal hernia. Sudarshan Raza Jr., MD Physical Exam HEENT: Normocephalic; atraumatic; no jaundice. CHEST: CTA CARDIAC: RRR ABDOMEN: Soft, nondistended, nontender; no hepatosplenomegaly; bowel sounds are present in all four quadrants. EXTREMITIES: No clubbing, cyanosis, or edema. SKIN: Normal; no rash; no jaundice. LIVING SUPERVISOR: No focal deficits; alert and oriented times three. (Janeth Domingo [facility]) Assessment and Plan Plan ASSESSMENT: - Acute on chronic pancreatitis, secondary to ETOH abuse. Pt drinks 2-3 Garrett Moreau per night. She reports 2 prior episodes of pancreatitis. US (07/05/17)---> Cholelithiasis, However, no CBD stones are visualized. Main pancreatic duct is dilated and there are calcifications in the pancreatic head indicating chronic pancreatitis. Yesterday's CT scan also demonstrated inflammation indicating acute pancreatitis. Abdomen/Pelvis CT Scan (07/04/17)---> Acute on chronic pancreatitis. The pancreatic duct is dilated to 6 mm which a new finding. There are numerous parenchymal calcifications associated with the pancreatic head. I cannot completely exclude choledocholithiasis, cholelithiasis, groundglass infiltrates involving the left lower lobe. I cannot exclude an infectious etiology, HH. IVF, PPI, Tolerating clear liquids. Will increase to full liquids. If tolerates, may have low fat diet in am and d/c home. Strongly recommend no ETOH. - GERD. Controlled with nexium at home. EGD (05/23/17)----> Significant duodenal wall edema and congestion with thickened folds, s/p biopsies. No obstruction. Moderate antral gastritis s/p biopsy to rule out H. Pylori. Pathology revealed duodenal mucosa with mild villous hypertrophy, mild chronic gastritis, negative for helicobacter pylori. - Arthritis, Anxiety/Depression, HTN, Hypothyroidism. PLAN: - Full liquids - Okay for low fat diet in am if tolerates full liquids - Change protonix to po - IVF - Supportive care - Okay to d/c in am if patient continues to do well and tolerating diet. - Recommend complete ETOH cessation, patient is not receptive - Further recommendations to follow based on results of above - Pt seen and examined by Dr. Garcia and myself and this note is written on his behalf (Janeth Domingo) Physician Comments Doing well, plan as above. Will sign off for now, please notify us if needed. (Loli Garcia MD) Janeth Domingo Jul 06, 2017 15:47 Loli Garcia MD Jul 06, 2017 16:58
[2017-07-06] MEDS: PANTOPRAZOLE SOD 40 MG DELAYED RELEASE TAB PO SCH (20:47)
[2017-07-07 03:50] VITALS: BP 159/88; PULSE 72; RESP 18; TEMP 97.5; O2SAT 95
[2017-07-07] MEDS: SODIUM CHLOR 0.9% 1000 ML INJ 1,000 ML IV SCH ×2 (04:58→15:00)
[2017-07-07] MEDS: LEVOTHYROXINE SODIUM 75 MCG TAB PO SCH (06:02)
[2017-07-07] MEDS: LEVOTHYROXINE SODIUM 100 MCG TAB PO SCH (06:02)
[2017-07-07 07:35] VITALS: BP 171/94; PULSE 75; RESP 16; TEMP 98; O2SAT 100
[2017-07-07] MEDS: SODIUM CHLORIDE 0.9% FLUSH 10 ML FLUSH IV FLUSH SCH (09:00)
[2017-07-07 09:30] VITALS: PULSE 75
[2017-07-07] MEDS: TRIAMTERENE/HCTZ 75 MG/50 MG TAB PO SCH (09:37)
[2017-07-07] MEDS: LOSARTAN 50 MG TAB PO SCH (09:37)
[2017-07-07] MEDS: KETOROLAC TROMETHAMINE 30 MG/ML (IVP) VIAL IV PUSH PRN (09:37)
[2017-07-07] MEDS: PANTOPRAZOLE SOD 40 MG DELAYED RELEASE TAB PO SCH (09:37)
[2017-07-07 12:23] VITALS: BP 144/77; PULSE 67; RESP 18; TEMP 96.9; O2SAT 98
--- NOTE | 2017-07-07 13:17 | HHI.PR ---
Subjective Remarks Follow-up Acute recurrent pancreatitis 07/06/17-patient seen and examined, reports significant improvement of abdominal pain. Would like to try some liquid. Complaint of possible sinus infection however patient currently afebrile 07/07/17-patient seen and examined, she was eating lunch and tolerated without any complication nausea, vomiting or abdominal pain. Looking for discharge home. Objective Vitals Vital Signs Date Time Temp Pulse Resp B/P (MAP) Pulse Ox O2 Delivery O2 Flow Rate FiO2 07/07/17 12:23 96.9 67 18 144/77 (99) 98 07/07/17 09:30 75 07/07/17 09:30 Room Air 07/07/17 07:35 98.0 75 16 171/94 (119) 100 07/07/17 03:50 97.5 72 18 159/88 (111) 95 07/06/17 23:39 98.2 89 18 142/84 (103) 95 07/06/17 23:20 Room Air 07/06/17 22:01 18 07/06/17 20:05 102 07/06/17 19:00 97.9 98 18 178/79 (112) 97 07/06/17 15:45 98.8 76 19 158/83 (108) 99 I/O 07/06/17 07/06/17 07/06/17 07/07/17 07/07/17 07/07/17 07:00 15:00 23:00 07:00 15:00 23:00 Intake Total 0 ml 430 ml 750 ml 1480 ml Balance 0 ml 430 ml 750 ml 1480 ml Intake Oral 0 ml 10 ml 750 ml 480 ml IV Total 420 ml 1000 ml # Voids 2 3 4 1 # Bowel Movements 0 0 0 0 Result Diagram: 07/06/17 0642 07/06/17 0642 Imaging Last Impressions Abdomen Ultrasound 07/05/17 0000 Signed Impressions: Service Date/Time: Wednesday, July 05, 2017 09:17 - CONCLUSION: 1. Cholelithiasis. However, no common bile duct stones are visualized. 2. Main pancreatic duct is dilated and there are calcifications in the pancreatic head indicating chronic pancreatitis. Yesterday's CT scan also demonstrated inflammation indicating acute pancreatitis. Estevan Graham MD Abdomen/Pelvis CT 07/04/17 1456 Signed Impressions: Service Date/Time: Tuesday, July 04, 2017 18:02 - CONCLUSION: 1. Acute on chronic pancreatitis. The pancreatic duct is dilated to 6 mm which is a new finding. There are numerous parenchymal calcifications associated with the pancreatic head. I cannot completely exclude choledocholithiasis. 2. Cholelithiasis. 3. Groundglass infiltrates involving the left lower lobe. I cannot exclude an infectious etiology. 4. Hiatal hernia. Sudarshan Raza Jr., MD Objective Remarks GENERAL: NAD SKIN: Warm and dry. HEAD: Normocephalic. EYES: No scleral icterus. No injection or drainage. NECK: Supple, trachea midline. No JVD or lymphadenopathy. CARDIOVASCULAR: Regular rate and rhythm without murmurs, gallops, or rubs. RESPIRATORY: Breath sounds equal bilaterally. No accessory muscle use. GASTROINTESTINAL: Abdomen soft, non-tender, nondistended. MUSCULOSKELETAL: No cyanosis, or edema. BACK: Nontender without obvious deformity. No CVA tenderness. Procedures None A/P Problem List: (1) Acute recurrent pancreatitis ICD Code: K85.90 - Acute pancreatitis without necrosis or infection, unspecified Status: Resolved (2) Cholelithiasis ICD Code: K80.20 - Calculus of gallbladder without cholecystitis without obstruction Assessment and Plan 72-year-old female with Acute recurrent pancreatitis Cholelithiasis CT abdomen with finding of acute on chronic pancreatitis, pancreatitis duct dilated 6 mm Pain management accordingly with parenteral medication lipase level trending down GI consultation appreciated Alcohol cessation advised Continue with IV fluid hydration, tolerating a low-fat diet DVT prophylaxis: Bilateral SCDs GI prophylaxis: PPI Mohinder Park MD Jul 07, 2017 13:17
--- NOTE | 2017-07-07 13:36 | HHI.DS ---
Discharge Summary Admission Date Jul 04, 2017 at 19:28 Discharge Date: Jul 07, 2017 Admitting Diagnosis acute pancreatitis (1) Acute recurrent pancreatitis ICD Code: K85.90 - Acute pancreatitis without necrosis or infection, unspecified Status: Resolved (2) Cholelithiasis ICD Code: K80.20 - Calculus of gallbladder without cholecystitis without obstruction Procedures None Brief History - From Admission 72 year-old female with a history of chronic pancreatitis presented to the ED yesterday for evaluation of an acute onset of abdominal pain rated over 8/10 in intensity associated with nausea and vomiting without any radiation. CT abdomen revealed acute on chronic pancreatitis, and pancreatitis duct dilated to 6 mm as well as numerous gallstones. Patient reports history of daily alcohol consumption. Currently denies any chest pain or shortness of breath as well as GI bleed. CBC/BMP: 07/06/17 0642 07/06/17 0642 Significant Findings Laboratory Tests Test 07/04/17 15:30 07/04/17 18:20 07/05/17 06:15 07/06/17 06:42 White Blood Count 12.4 TH/MM3 (4.0-11.0) Red Blood Count 3.75 MIL/MM3 (4.00-5.30) 3.52 MIL/MM3 (4.00-5.30) 3.85 MIL/MM3 (4.00-5.30) Mean Corpuscular Hemoglobin 34.1 PG (27.0-34.0) Neutrophils (%) (Auto) 75.6 % (16.0-70.0) 74.2 % (16.0-70.0) Neutrophils # (Auto) 9.4 TH/MM3 (1.8-7.7) Monocytes # (Auto) 1.0 TH/MM3 (0-0.9) 1.0 TH/MM3 (0-0.9) Albumin 3.2 GM/DL (3.4-5.0) 2.8 GM/DL (3.4-5.0) 3.1 GM/DL (3.4-5.0) Lipase 6793 U/L (73-393) 2592 U/L (73-393) 676 U/L (73-393) Urine Turbidity HAZY (CLEAR) Urine Bacteria RARE /hpf (NONE) Hematocrit 34.6 % (35.0-46.0) Monocytes (%) (Auto) 12.8 % (0.0-8.0) Total Protein 6.3 GM/DL (6.4-8.2) Estimat Glomerular Filtration Rate 80 ML/MIN (>89) 79 ML/MIN (>89) Test 07/07/17 05:55 Lipase 540 U/L (73-393) Imaging Last Impressions Abdomen Ultrasound 07/05/17 0000 Signed Impressions: Service Date/Time: Wednesday, July 05, 2017 09:17 - CONCLUSION: 1. Cholelithiasis. However, no common bile duct stones are visualized. 2. Main pancreatic duct is dilated and there are calcifications in the pancreatic head indicating chronic pancreatitis. Yesterday's CT scan also demonstrated inflammation indicating acute pancreatitis. Estevan Graham MD Abdomen/Pelvis CT 07/04/17 1456 Signed Impressions: Service Date/Time: Tuesday, July 04, 2017 18:02 - CONCLUSION: 1. Acute on chronic pancreatitis. The pancreatic duct is dilated to 6 mm which is a new finding. There are numerous parenchymal calcifications associated with the pancreatic head. I cannot completely exclude choledocholithiasis. 2. Cholelithiasis. 3. Groundglass infiltrates involving the left lower lobe. I cannot exclude an infectious etiology. 4. Hiatal hernia. Sudarshan Raza Jr., MD PE at Discharge GENERAL: NAD SKIN: Warm and dry. HEAD: Normocephalic. EYES: No scleral icterus. No injection or drainage. NECK: Supple, trachea midline. No JVD or lymphadenopathy. CARDIOVASCULAR: Regular rate and rhythm without murmurs, gallops, or rubs. RESPIRATORY: Breath sounds equal bilaterally. No accessory muscle use. GASTROINTESTINAL: Abdomen soft, non-tender, nondistended. MUSCULOSKELETAL: No cyanosis, or edema. BACK: Nontender without obvious deformity. No CVA tenderness. Hospital Course Patient admitted secondary to acute recurrent pancreatitis for which she was treated conservatively with initially nothing by mouth, aggressive IV fluid resuscitations and monitor lipase level. Gastroenterology was consulted. Patient diet was subsequently advanced with significant improvement of symptom. Prior to discharge, patient's condition improved and lipase trended down. Patient was advised on alcohol cessation. GI and DVT prophylaxis were provided. Pt Condition on Discharge: Stable Discharge Disposition: Discharge Home Discharge Time: <= 30 minutes Discharge Instructions DIET: Follow Instructions for: Low Fat Diet Activities you can perform: Regular-No Restrictions Follow up Referrals: PCP Follow-up - 1 Week Continued Medications: Alprazolam (Alprazolam) 1 Mg Tab 1 MG PO HS PRN for ANXIETY, TAB 0 Refills Cholecalciferol (Vitamin D3) 5,000 Unit Cap 5000 UNITS PO DAILY for Nutritional Supplement, #60 CAP 1 Refill Desvenlafaxine ER 24 HR (Pristiq 24 HR) 100 Mg Tab 100 MG PO DAILY, TAB Docusate Sodium (Dok) 100 Mg Cap 100 MG PO BID, #60 CAP [address] (Nexium) 40 Mg Capdr 40 MG PO DAILY, #30 CAP 1 Refill Levothyroxine (Levothyroxine) 175 Mcg Tab 175 MCG PO DAILY for Thyroid, #30 TAB 0 Refills Losartan (Losartan) 100 Mg Tab 100 MG PO DAILY for Blood Pressure Management, #30 TAB 0 Refills Multiple Vitamin (Thera/Beta-Carotene) 1 Tab Tab 1 TAB PO DAILY, #30 TAB 1 Refill Triamterene-Hydrochlorothiazide (Maxzide) 75-50 Mg Tab 1 TAB PO DAILY, #30 TAB 0 Refills Venlafaxine ER 24 HR (Effexor XR 24 HR) 75 Mg Cap 150 MG PO DAILY, #60 CAP Discontinued Medications: Ondansetron Odt (Zofran Odt) 4 Mg Tab 4 MG SL Q8HR PRN for Nausea/Vomiting, #30 TAB 0 Refills Mohinder Park MD Jul 07, 2017 13:36
== END 2017-07-07 16:42 | disposition home or self-care (01) | DRG 440 ==
LOC: NEPD 13:58 → NEDA 19:28 → N06B 20:24
PROVIDERS: ADMIT Hospitalist; ATTEND Hospitalist
DX: K85.20 Alcohol induced acute pancreatitis without necrosis or infection (principal); M06.9 Rheumatoid arthritis, unspecified; I10 Essential (primary) hypertension; K80.20 Calculus of gallbladder without cholecystitis without obstruction; K86.0 Alcohol-induced chronic pancreatitis; K86.89 Other specified diseases of pancreas; I25.10 Atherosclerotic heart disease of native coronary artery without angina pectoris; K21.9 Gastro-esophageal reflux disease without esophagitis; E03.9 Hypothyroidism, unspecified; R91.8 Other nonspecific abnormal finding of lung field; K44.9 Diaphragmatic hernia without obstruction or gangrene; H91.90 Unspecified hearing loss, unspecified ear; F10.10 Alcohol abuse, uncomplicated; F32.9 Major depressive disorder, single episode, unspecified; F41.9 Anxiety disorder, unspecified; Z23 Encounter for immunization; Z85.3 Personal history of malignant neoplasm of breast; Z86.73 Personal history of transient ischemic attack (TIA), and cerebral infarction without residual deficits; Z88.2 Allergy status to sulfonamides
CPT/HCPCS: 74177; 76700; 80053; 81001; 83690; 85025; 90686; 93005; 96361; 96374; 96375; J1170; C9113; J1200; J1885; J2270; J2405; J7030; Q2038; Q9967

== ENCOUNTER 2017-07-26 22:37 | Inpatient (IN) | payer MEDICARE, BC ==
[~2017-07-26] VITALS: Ht 162.6 cm; Wt 65.5 kg
[~2017-07-26 22:37] MED LIST changes: +ALPR1TAB3 PO; -AMLO5 PO; -APIX5TAB PO; -CLON1 PO; -COMMODE 3-IN-11 MIS; -HYDR-3366 PO; -LEVO-168 PO; +LEVO175T2 PO; -LIDO1ADH4 TOPICAL; +LOSA100T PO; +MAXZ PO; -METO25TA3 PO; -METR-1 PO; -OYST250T4 PO; +PRIS100T PO; -ROBA750T PO; -VITA100T2 PO; -WALKER/ADULT/FO1 MIS; -WHEEMIS3; -ZOFR4TAB3 SL
[2017-07-26 22:40] VITALS: BP 165/94; PULSE 88; RESP 16; TEMP 98.4; O2SAT 96
[2017-07-26 22:45] VITALS: BP 165/94; PULSE 78; RESP 16; TEMP 98.4; O2SAT 99
[2017-07-26 23:00] VITALS: BP_SYST 165; BP_DIAS 86; BP_DIAS 94; PULSE 86; RESP 18
[2017-07-26] MEDS ORDERED: SODIUM CHLORIDE 0.9% FLUSH 10 ML FLUSH IVF PRN (23:00)
[2017-07-26] MEDS ORDERED: SODIUM CHLOR 0.9% 1000 ML INJ 1,000 ML IV ONE (23:00)
--- NOTE | 2017-07-26 23:02 | PD ---
HPI Chief Complaint: GI Complaint Time Seen by Provider: 22:41 Travel History International Travel<30 days: No Contact w/Intl Traveler<30days: No Traveled to known affect area: No History of Present Illness HPI Patient is a 72-year-old female with history of hypertension, breast cancer, hypothyroidism, chronic pancreatitis, hysterectomy, presents to the emergency room from home with multiple complaints. Patient reports that starting 3 PM this afternoon, began to have chest pain and abdominal pain. Patient report that her chest pain is substernal in nature, reports that chest pain radiates to her back. Reports that she is unable to describe her chest pain other than "it just hurts me." Reports that she also began to have diffuse abdominal pain around 3 PM, reports that she has had nausea with multiple episodes of vomiting and diarrhea with her symptoms. Patient does admit to drinking alcoholic beverage today, reports that she is not an alcoholic but does have history of pancreatitis in the past. Patient reports that everything from her chest to her abdomen hurts her and she cannot localize her pain. Denies fever/chills at this time. Reports no sick contacts. Denies history of [place], CAD or cardiac stents in the past. She does not see a binding dyer [facility] Past Medical History Hx Anticoagulant Therapy: Yes (ASPIRIN) Arthritis: Yes Asthma: No Autoimmune Disease: Yes (RA) Blood Disorders: No Anxiety: Yes Depression: Yes Heart Rhythm Problems: No Cancer: Yes (LEFT BREAST CA) Cardiovascular Problems: Yes High Cholesterol: No Chemotherapy: No Chest Pain: No Congestive Heart Failure: No COPD: No Cerebrovascular Accident: Yes (2016) Coronary Artery Disease: Yes Diabetes: No Diminished Hearing: Yes Endocrine: No GERD: Yes Genitourinary: No Headaches: No Hiatal Hernia: No Heparin Induced Thrombocytopen: No Hypertension: Yes Immune Disorder: Yes Implanted Vascular Access Dvce: No Kidney Stones: No Musculoskeletal: Yes Neurologic: Yes Psychiatric: Yes Reproductive: No Respiratory: No Immunizations Current: Yes Migraines: Yes Pancreatitis: Yes Radiation Therapy: Yes Renal Failure: No Seizures: Yes Sickle Cell Disease: No Sleep Apnea: No Thyroid Disease: Yes (HYPOTHYROID) Ulcer: Yes ?: Not Menopausal: Yes : 2 Para: 1 Miscarriage: 1 Past Surgical History Abdominal Surgery: Yes (LYSIS OF ADHESIONS ) AICD: No Appendectomy: Yes Arteriovenous Shunt: No Body Medical Devices: L hip hardware in place Cardiac Surgery: No Cholecystectomy: Yes Ear Surgery: No Endocrine Surgery: No Eye Surgery: No Genitourinary Surgery: No Gynecologic Surgery: Yes (HYSTERECTOMY) Hysterectomy: Yes Insulin Pump: No Joint Replacement: No Neurologic Surgery: No Oral Surgery: No Pacemaker: No Thoracic Surgery: No Social History Alcohol Use: Yes Tobacco Use: No Substance Use: No Allergies-Medications (Allergen,Severity, Reaction): Coded Allergies: Sulfa (Sulfonamide Antibiotics) (Unverified Allergy, Intermediate, rash, ) Reported Meds & Prescriptions Reported Meds & Active Scripts Active Dok (Docusate Sodium) 100 Mg Cap 100 Mg PO BID Thera/Beta-Carotene (Multiple Vitamin) 1 Tab Tab 1 Tab PO DAILY Effexor XR 24 HR (Venlafaxine HCl) 75 Mg Cap 150 Mg PO DAILY Vitamin D3 (Cholecalciferol) 5,000 Unit Cap 5,000 Units PO DAILY Nexium (Esomeprazole DR) 40 Mg Capdr 40 Mg PO DAILY Reported Maxzide (Triamterene/HCTZ) 75-50 Mg Tab 1 Tab PO DAILY Losartan (Losartan Potassium) 100 Mg Tab 100 Mg PO DAILY Alprazolam 1 Mg Tab 1 Mg PO HS PRN Levothyroxine (Levothyroxine Sodium) 175 Mcg Tab 175 Mcg PO DAILY Pristiq 24 HR (Desvenlafaxine ER 24 HR) 100 Mg Tab 100 Mg PO DAILY Review of Systems General / Constitutional: No: Fever Eyes: No: Visual changes HENT: No: Headaches Cardiovascular: Positive: Chest Pain or Discomfort Respiratory: Positive: Shortness of Breath Gastrointestinal: Positive: Nausea, Vomiting, Diarrhea, Abdominal Pain Genitourinary: No: Dysuria Musculoskeletal: No: Pain Skin: No Rash Neurologic: No: Weakness Psychiatric: No: Depression Endocrine: No: Polydipsia Hematologic/Lymphatic: No: Easy Bruising Physical Exam Narrative GENERAL: Moderate distress SKIN: Focused skin assessment warm/dry. HEAD: Atraumatic. Normocephalic. EYES: Pupils equal and round. No scleral icterus. No injection or drainage. ENT: No nasal bleeding or discharge. Mucous membranes pink and moist. NECK: Trachea midline. No JVD. CARDIOVASCULAR: Regular rate and rhythm. No murmur appreciated. RESPIRATORY: No accessory muscle use. Clear to auscultation. Breath sounds equal bilaterally. GASTROINTESTINAL: Diffuse abdominal tenderness with no rebound or guarding on exam. Hepatic and splenic margins not palpable. MUSCULOSKELETAL: No obvious deformities. No clubbing. No cyanosis. No edema. NEUROLOGICAL: Awake and alert. No obvious cranial nerve deficits. Motor grossly within normal limits. Normal speech. PSYCHIATRIC: Appropriate mood and affect; insight and judgment normal. Data Data Last Documented VS Vital Signs Date Time Temp Pulse Resp B/P (MAP) Pulse Ox O2 Delivery O2 Flow Rate FiO2 07/26/17 23:00 86 18 165/86 (112) 165/94 (117) 07/26/17 22:45 98.4 99 Room Air Orders Orders Electrocardiogram (07/26/17 22:49) B-Type Natriuretic Peptide (07/26/17 22:49) Ckmb (Isoenzyme) Profile (07/26/17 22:49) Complete Blood Count With Diff (07/26/17 22:49) Comprehensive Metabolic Panel (07/26/17 22:49) Magnesium (Mg) (07/26/17 22:49) Prothrombin Time / Inr (Pt) (07/26/17 22:49) Act Partial Throm Time (Ptt) (07/26/17 22:49) Troponin I (07/26/17 22:49) Lipase (07/26/17 22:49) Chest, Single Ap (07/26/17 22:49) Ecg Monitoring (07/26/17 22:49) Iv Access Insert/Monitor (07/26/17 22:49) Oximetry (07/26/17 22:49) Sodium Chloride 0.9% Flush (Ns Flush) (07/26/17 23:00) Cta Thor Abd Aorta W Iv C W3d (07/26/17 22:49) Sodium Chlor 0.9% 1000 Ml Inj (Ns 1000 M (07/26/17 23:00) Bilateral Bp Monitoring (07/26/17 22:49) Alcohol (Ethanol) (07/26/17 22:49) Labs Laboratory Tests Test 07/26/17 23:00 White Blood Count 11.3 TH/MM3 Red Blood Count 4.33 MIL/MM3 Hemoglobin 13.9 GM/DL Hematocrit 41.6 % Mean Corpuscular Volume 96.2 FL Mean Corpuscular Hemoglobin 32.1 PG Mean Corpuscular Hemoglobin Concent 33.4 % Red Cell Distribution Width 15.6 % Platelet Count 342 TH/MM3 Mean Platelet Volume 7.0 FL Neutrophils (%) (Auto) 72.0 % Lymphocytes (%) (Auto) 15.5 % Monocytes (%) (Auto) 9.4 % Eosinophils (%) (Auto) 0.5 % Basophils (%) (Auto) 2.6 % Neutrophils # (Auto) 8.1 TH/MM3 Lymphocytes # (Auto) 1.7 TH/MM3 Monocytes # (Auto) 1.1 TH/MM3 Eosinophils # (Auto) 0.1 TH/MM3 Basophils # (Auto) 0.3 TH/MM3 CBC Comment DIFF FINAL Differential Comment Prothrombin Time 11.0 SEC Prothromb Time International Ratio 1.0 RATIO Activated Partial Thromboplast Time 28.0 SEC Blood Urea Nitrogen 15 MG/DL Creatinine 0.72 MG/DL Random Glucose 110 MG/DL Total Protein 8.7 GM/DL Albumin 3.9 GM/DL Calcium Level 9.5 MG/DL Magnesium Level 1.6 MG/DL Alkaline Phosphatase 103 U/L Aspartate Amino Transf (AST/SGOT) 19 U/L Alanine Aminotransferase (ALT/SGPT) 14 U/L Total Bilirubin 0.7 MG/DL Sodium Level 125 MEQ/L Potassium Level 3.9 MEQ/L Chloride Level 88 MEQ/L Carbon Dioxide Level 24.7 MEQ/L Anion Gap 12 MEQ/L Estimat Glomerular Filtration Rate 80 ML/MIN Total Creatine Kinase 53 U/L Troponin I LESS THAN 0.02 NG/ML B-Type Natriuretic Peptide 26 PG/ML Lipase 8929 U/L Ethyl Alcohol Level LESS THAN 3 MG/DL MDM Medical Decision Making Medical Screen Exam Complete: Yes Emergency Medical Condition: Yes Medical Record Reviewed: Yes Interpretation(s) EKG at 2305: NSR at 93bpm, qt/qtc: 371/422, no acute st or t wave changes Vital Signs Date Time Temp Pulse Resp B/P (MAP) Pulse Ox O2 Delivery O2 Flow Rate FiO2 07/26/17 23:00 86 18 165/86 (112) 165/94 (117) 07/26/17 22:45 98.4 78 16 165/94 (117) 99 Room Air Differential Diagnosis ACS, arrhythmia, pancreatitis, etoh abuse, electrolyte abnormality, aortic dissection Narrative Course 72 year old female who presents to the ER with c/o of chest pain radiating to her back as well as diffuse abdominal pain which began around 3pm today. Patient unable to localize pain at this time. Prior records were reviewed, patient does have history of alcoholism as well as chronic pancreatitis. Patient with chest pain radiating to her back, CTA ordered to rule out aortic dissection During the course of the patients emergency department visit, the patients history, examination, and differential diagnosis were reviewed with the patient. The patient was placed on a teletypesetter monitor with oximetry and frequent blood pressure monitoring. The patient had 20 gauge IV access obtained and blood work sent for analysis. The patient was initially provided IVF The patients laboratory studies were reviewed and remarkable for: Laboratory Tests Test 07/26/17 23:00 White Blood Count 11.3 TH/MM3 (4.0-11.0) Red Blood Count 4.33 MIL/MM3 (4.00-5.30) Hemoglobin 13.9 GM/DL (11.6-15.3) Hematocrit 41.6 % (35.0-46.0) Mean Corpuscular Volume 96.2 FL (80.0-100.0) Mean Corpuscular Hemoglobin 32.1 PG (27.0-34.0) Mean Corpuscular Hemoglobin Concent 33.4 % (32.0-36.0) Red Cell Distribution Width 15.6 % (11.6-17.2) Platelet Count 342 TH/MM3 (150-450) Mean Platelet Volume 7.0 FL (7.0-11.0) Neutrophils (%) (Auto) 72.0 % (16.0-70.0) Lymphocytes (%) (Auto) 15.5 % (9.0-44.0) Monocytes (%) (Auto) 9.4 % (0.0-8.0) Eosinophils (%) (Auto) 0.5 % (0.0-4.0) Basophils (%) (Auto) 2.6 % (0.0-2.0) Neutrophils # (Auto) 8.1 TH/MM3 (1.8-7.7) Lymphocytes # (Auto) 1.7 TH/MM3 (1.0-4.8) Monocytes # (Auto) 1.1 TH/MM3 (0-0.9) Eosinophils # (Auto) 0.1 TH/MM3 (0-0.4) Basophils # (Auto) 0.3 TH/MM3 (0-0.2) CBC Comment DIFF FINAL Differential Comment Prothrombin Time 11.0 SEC (9.8-11.6) Prothromb Time International Ratio 1.0 RATIO Activated Partial Thromboplast Time 28.0 SEC (24.3-30.1) Blood Urea Nitrogen 15 MG/DL (7-18) Creatinine 0.72 MG/DL (0.50-1.00) Random Glucose 110 MG/DL (74-106) Total Protein 8.7 GM/DL (6.4-8.2) Albumin 3.9 GM/DL (3.4-5.0) Calcium Level 9.5 MG/DL (8.5-10.1) Magnesium Level 1.6 MG/DL (1.5-2.5) Alkaline Phosphatase 103 U/L (45-117) Aspartate Amino Transf (AST/SGOT) 19 U/L (15-37) Alanine Aminotransferase (ALT/SGPT) 14 U/L (10-53) Total Bilirubin 0.7 MG/DL (0.2-1.0) Sodium Level 125 MEQ/L (136-145) Potassium Level 3.9 MEQ/L (3.5-5.1) Chloride Level 88 MEQ/L (98-107) Carbon Dioxide Level 24.7 MEQ/L (21.0-32.0) Anion Gap 12 MEQ/L (5-15) Estimat Glomerular Filtration Rate 80 ML/MIN (>89) Total Creatine Kinase 53 U/L (26-192) Troponin I LESS THAN 0.02 NG/ML B-Type Natriuretic Peptide 26 PG/ML (0-100) Lipase 8929 U/L (73-393) Ethyl Alcohol Level LESS THAN 3 MG/DL (0-5) CTA pending as well as ultimate disposition of patient. Patient was signed out to Dr. Perkins at change of shift. Diagnosis Primary Impression: Acute recurrent pancreatitis Additional Impression: Chest pain Admitting Information Admitting Physician Requests: Maciel PollardAmy L DO Jul 26, 2017 23:02
[2017-07-26 23:14] LABS: AUTOMATED NEUTROPHIL # 8.1 TH/MM3 (1.8-7.7); BASOPHIL # 0.3 TH/MM3 (0-0.2); BASOPHIL % 2.6 % (0.0-2.0); EOSINOPHIL # 0.1 TH/MM3 (0-0.4); EOSINOPHIL % 0.5 % (0.0-4.0); HEMATOCRIT 41.6 % (35.0-46.0); HEMO FLAGS DIFF FINAL; LYMPH % 15.5 % (9.0-44.0); LYMPHOCYTE # 1.7 TH/MM3 (1.0-4.8); MEAN CELL VOLUME 96.2 FL (80.0-100.0); MEAN CORPUSCULAR HEMOGLOBIN 32.1 PG (27.0-34.0); MEAN CORPUSCULAR HGB CONC 33.4 % (32.0-36.0); MONO % 9.4 % (0.0-8.0); PLATELET COUNT 342 TH/MM3 (150-450); RED BLOOD COUNT 4.33 MIL/MM3 (4.00-5.30); RED CELL DISTRIBUTION WIDTH 15.6 % (11.6-17.2); WHITE BLOOD COUNT 11.3 TH/MM3 (4.0-11.0)
[2017-07-26 23:20] LABS: CHLORIDE 88 MEQ/L (98-107); POTASSIUM 3.9 MEQ/L (3.5-5.1); SODIUM (NA) 125 MEQ/L (136-145)
[2017-07-26 23:24] LABS: ANION GAP 12 MEQ/L (5-15); BICARBONATE 24.7 MEQ/L (21.0-32.0)
[2017-07-26 23:25] LABS: BLOOD UREA NITROGEN 15 MG/DL (7-18); MAGNESIUM 1.6 MG/DL (1.5-2.5)
[2017-07-26 23:27] LABS: ALT (GPT) 14 U/L (10-53); AST (GOT) 19 U/L (15-37); GLOMERULAR FILTRATION RATE 80 ML/MIN (>89)
[2017-07-26 23:29] LABS: TOTAL BILIRUBIN ADULT 0.7 MG/DL (0.2-1.0)
[2017-07-26 23:30] LABS: ALKALINE PHOSPHATASE 103 U/L (45-117)
[2017-07-26 23:34] LABS: ALCOHOL LESS THAN 3 MG/DL (0-5); CREATINE KINASE 53 U/L (26-192)
--- NOTE | 2017-07-26 23:42 | RADRPT ---
EXAM DATE/TIME: 07/26/2017 23:12 [facility] COMPARISON: CHEST SINGLE AP, May 04, 2017, 6:52. INDICATIONS : Chest pain. MEDICAL HISTORY : Hypothyroidism. Hypertension. Pancreatitis. Left breast carcinoma. CAD. Afib.Gastric and peptic ulcer s. Lysis of adhesions. GERD. SURGICAL HISTORY : Appendectomy. Hysterectomy. Radiation therapy. Blood transfusions. ENCOUNTER: Initial ACUITY: 1 day PAIN SCORE: 5/10 LOCATION: Bilateral chest FINDINGS: The heart size is normal. The lungs are clear. No effusion is seen. Calcified lymph nodes are seen in the left hilar region. CONCLUSION: No acute disease. Estevan Pope MD on July 26, 2017 at 23:40 Board Certified Radiologist. This report was verified electronically.
[2017-07-27] VITALS (11 sets, daily range): BP systolic 129–164; BP diastolic 72–91; PULSE 71–95; RESP 16–20; TEMP 97.4–99.6; O2SAT 95–98
[2017-07-27] MEDS ORDERED: IOHEXOL 350 MG/ML 10 ML VIAL (for RAD DIAG) IVCONTRAST ONE (00:15)
--- NOTE | 2017-07-27 00:25 | PD ---
Physical Exam Date Seen by Provider: Jul 27, 2017 Time Seen by Provider: 00:24 Narrative Accepted in transfer of care from Dr. Pollard Data Data Last Documented VS Vital Signs Date Time Temp Pulse Resp B/P (MAP) Pulse Ox O2 Delivery O2 Flow Rate FiO2 07/27/17 01:00 89 16 160/72 (101) 98 Room Air 07/26/17 22:45 98.4 Orders Orders Electrocardiogram (07/26/17 22:49) B-Type Natriuretic Peptide (07/26/17 22:49) Ckmb (Isoenzyme) Profile (07/26/17 22:49) Complete Blood Count With Diff (07/26/17 22:49) Comprehensive Metabolic Panel (07/26/17 22:49) Magnesium (Mg) (07/26/17 22:49) Prothrombin Time / Inr (Pt) (07/26/17 22:49) Act Partial Throm Time (Ptt) (07/26/17 22:49) Troponin I (07/26/17 22:49) Lipase (07/26/17 22:49) Chest, Single Ap (07/26/17 22:49) Ecg Monitoring (07/26/17 22:49) Iv Access Insert/Monitor (07/26/17 22:49) Oximetry (07/26/17 22:49) Sodium Chloride 0.9% Flush (Ns Flush) (07/26/17 23:00) Cta Thor Abd Aorta W Iv C W3d (07/26/17 22:49) Sodium Chlor 0.9% 1000 Ml Inj (Ns 1000 M (07/26/17 23:00) Bilateral Bp Monitoring (07/26/17 22:49) Alcohol (Ethanol) (07/26/17 22:49) Iohexol 350 Inj (Omnipaque 350 Inj) (07/27/17 00:15) Morphine Inj (Morphine Inj) (07/27/17 01:00) Ondansetron Inj (Zofran Inj) (07/27/17 01:00) Admit To Inpatient (07/27/17 ) Vital Signs (Adult) Q4H (07/27/17 01:06) Activity Oob With Assistance (07/27/17 01:06) Dog Breeder / Telemetry .CONTINUOUS (07/27/17 01:06) Sodium Chlor 0.9% 1000 Ml Inj (Ns 1000 M (07/27/17 01:06) Sodium Chloride 0.9% Flush (Ns Flush) (07/27/17 01:15) Sodium Chloride 0.9% Flush (Ns Flush) (07/27/17 09:00) Comprehensive Metabolic Panel (07/28/17 06:00) Complete Blood Count With Diff (07/28/17 06:00) Lipase (07/28/17 06:00) Case Management Consult (07/27/17 01:06) Naloxone Inj (Narcan Inj) (07/27/17 01:15) Inpatient Certification (07/27/17 ) Morphine Inj (Morphine Inj) (07/27/17 01:15) Flumazenil Inj (Romazicon Inj) (07/27/17 01:15) Lorazepam (Ativan) (07/27/17 01:15) Lorazepam Inj (Ativan Inj) (07/27/17 01:15) Lorazepam (Ativan) (07/27/17 01:15) Lorazepam Inj (Ativan Inj) (07/27/17 01:15) Lorazepam Inj (Ativan Inj) (07/27/17 01:15) Lorazepam Inj (Ativan Inj) (07/27/17 01:15) Admit Order (Ed Use Only) (07/27/17 ) Dog Breeder / Telemetry MARSHAL.Q8H (07/27/17 01:10) Diet Npo (07/27/17 Breakfast) Activity Oob With Assistance (07/27/17 01:10) Notify Dr: Other (07/27/17 01:10) Labs Laboratory Tests Test 07/26/17 23:00 White Blood Count 11.3 TH/MM3 Red Blood Count 4.33 MIL/MM3 Hemoglobin 13.9 GM/DL Hematocrit 41.6 % Mean Corpuscular Volume 96.2 FL Mean Corpuscular Hemoglobin 32.1 PG Mean Corpuscular Hemoglobin Concent 33.4 % Red Cell Distribution Width 15.6 % Platelet Count 342 TH/MM3 Mean Platelet Volume 7.0 FL Neutrophils (%) (Auto) 72.0 % Lymphocytes (%) (Auto) 15.5 % Monocytes (%) (Auto) 9.4 % Eosinophils (%) (Auto) 0.5 % Basophils (%) (Auto) 2.6 % Neutrophils # (Auto) 8.1 TH/MM3 Lymphocytes # (Auto) 1.7 TH/MM3 Monocytes # (Auto) 1.1 TH/MM3 Eosinophils # (Auto) 0.1 TH/MM3 Basophils # (Auto) 0.3 TH/MM3 CBC Comment DIFF FINAL Differential Comment Prothrombin Time 11.0 SEC Prothromb Time International Ratio 1.0 RATIO Activated Partial Thromboplast Time 28.0 SEC Blood Urea Nitrogen 15 MG/DL Creatinine 0.72 MG/DL Random Glucose 110 MG/DL Total Protein 8.7 GM/DL Albumin 3.9 GM/DL Calcium Level 9.5 MG/DL Magnesium Level 1.6 MG/DL Alkaline Phosphatase 103 U/L Aspartate Amino Transf (AST/SGOT) 19 U/L Alanine Aminotransferase (ALT/SGPT) 14 U/L Total Bilirubin 0.7 MG/DL Sodium Level 125 MEQ/L Potassium Level 3.9 MEQ/L Chloride Level 88 MEQ/L Carbon Dioxide Level 24.7 MEQ/L Anion Gap 12 MEQ/L Estimat Glomerular Filtration Rate 80 ML/MIN Total Creatine Kinase 53 U/L Troponin I LESS THAN 0.02 NG/ML B-Type Natriuretic Peptide 26 PG/ML Lipase 8929 U/L Ethyl Alcohol Level LESS THAN 3 MG/DL [facility] Medical Record Reviewed: Yes Supervised Visit with ALFREDA: No Interpretation(s) Lipase: 8929, elevated Troponin I less than 0.02, not elevated EKG normal sinus rhythm rate [address] elevation or injury pattern Last Impressions Chest X-Ray [id number]/[id number] Signed Impressions: Service Date/Time: Wednesday, July 26, 2017 23:12 - CONCLUSION: No acute disease. Estevan Pope MD Aorta CTA [id number] Signed Impressions: Service Date/Time: Wednesday, July 26, 2017 23:50 - CONCLUSION: 1. Chronic and acute pancreatitis of the pancreatic head and uncinate process. This process appears to progressed since the prior exam. 2. Suspected hepatic and renal cysts. 3. Calcified lymph nodes left hilum and in the spleen. 4. Mild hiatal hernia. 5. Scattered atherosclerotic calcifications. No aneurysm or dissection is seen. Estevan Pope MD CBC & BMP Diagram 07/26/17 23:00 Total Protein 8.7 H, Albumin 3.9, Calcium Level 9.5, Magnesium Level 1.6, Alkaline Phosphatase 103, Aspartate Amino Transf (AST/SGOT) 19, Alanine Aminotransferase (ALT/SGPT) 14, Total Bilirubin 0.7 Vital Signs Date Time Temp Pulse Resp B/P (MAP) Pulse Ox O2 Delivery O2 Flow Rate FiO2 07/27/17 00:06 78 16 164/83 (110) 98 Room Air 07/26/17 23:00 86 18 165/86 (112) 165/94 (117) 07/26/17 22:45 98.4 78 16 165/94 (117) 99 Room Air 07/26/17 22:40 98.4 88 16 165/94 (117) 96 Differential Diagnosis Accepted in transfer of care from Dr. Pollard; please refer to her dictation Narrative Course Accepted in transfer of care from Dr. Pollard Imaging shows evidence of chronic and acute pancreatitis no evidence for aneurysm or dissection Call placed to [facility] for admission discussed with Dr Segovia for admission Physician Communication Physician Communication discussed with Dr Segovia Diagnosis Primary Impression: Acute recurrent pancreatitis Additional Impression: Chest pain Admitting Information Admitting Physician Requests: Admit Sherri Perkins MD Jul 27, 2017 00:25
--- NOTE | 2017-07-27 00:33 | RADRPT ---
EXAM DATE/TIME: 07/26/2017 23:50 [facility] COMPARISON: CT ABDOMEN & PELVIS W CONTRAST, July 04, 2017, 18:02. INDICATIONS : Abdominal and lower back pain. IV CONTRAST: 100 cc Omnipaque 350 (iohexol) IV RADIATION DOSE: 14.94 CTDIvol (mGy) MEDICAL HISTORY : Cardiovascular disease. Carcinoma, breast. SURGICAL HISTORY : Appendectomy. Cholecystectomy.Hysterectomy.Hip replacement. ENCOUNTER: Initial ACUITY: 1 day PAIN SCALE: 8/10 LOCATION: abdomen and back TECHNIQUE: Volumetric scanning was performed using a multi-row detector CT scanner. The data was post processed with a variety of visualization algorithms including full volume maximum intensity projection, multi -planar sliding thin slab reformation, curved planar reformation, and surface rendering techniques. Using automated exposure control and adjustment of the mA and/or kV according to patient size, radiat ion dose was kept as low as reasonably achievable to obtain optimal diagnostic quality images. DICOM format image data is available electronically for review and comparison. FINDINGS: LUNGS: There is no consolidation or pneumothorax. No concerning pulmonary nodule is visualized. No pleural fluid is present. MEDIASTINUM: Calcified lymph nodes are seen in the left hilar region. There is a mild hiatal hernia present. ABDOMEN: There is prominent inflammatory change around the pancreatic head and uncinate process. This extends around the duodenum. There are chronic calcifications in the pancreatic head and uncinate process. Th e pancreatic duct is dilated measuring 9 mm. There are several hypodensities in the liver likely rela tyrese to cysts measuring up to 1.4 cm. There are calcified granulomas in the spleen. The adrenal glands are unremarkable. Bilateral renal cysts are seen. There is degenerative change in the lower lumbar s pine. PELVIS: No evidence of free fluid or pelvic mass. No abnormally enlarged inguinal or retroperitoneal lymph no monroe are present. The bladder is unremarkable. Surgical hardware seen at the proximal left femur. THORACIC AORTA: There are scattered atherosclerotic calcifications seen throughout the arterial system. The thoracic aortic root is normal with normal branching of the great vessels. There is no evidence of aneurysm o r dissection. ABDOMINAL AORTA: The aorta is normal in caliber without aneurysm or dissection. The renal arteries are patent bilater ally. The proximal celiac and superior mesenteric arteries are patent and normal in diameter. PELVIC VESSELS: The internal iliac and external iliac vessels are patent without aneurysm or stenosis. CONCLUSION: 1. Chronic and acute pancreatitis of the pancreatic head and uncinate process. This process appears t o progressed since the prior exam. 2. Suspected hepatic and renal cysts. 3. Calcified lymph nodes left hilum and in the spleen. 4. Mild hiatal hernia. 5. Scattered atherosclerotic calcifications. No aneurysm or dissection is seen. Estevan Pope MD on July 27, 2017 at 0:24 Board Certified Radiologist. This report was verified electronically.
[2017-07-27] MEDS ORDERED: MORPHINE SULFATE 2 MG/ML INJ IV PUSH ONE (01:00)
[2017-07-27] MEDS ORDERED: ONDANSETRON HCL 4 MG/2 ML VIAL IV PUSH ONE (01:00)
[2017-07-27] MEDS ORDERED: LORazepam 2 MG TAB PO PRN (01:15)
[2017-07-27] MEDS ORDERED: NALOXONE HCL 0.4 MG/ML AMP IV PUSH PRN (01:15)
[2017-07-27] MEDS ORDERED: SODIUM CHLORIDE 0.9% FLUSH 10 ML FLUSH IV FLUSH PRN (01:15)
[2017-07-27] MEDS ORDERED: LORazepam 1 MG TAB PO PRN (01:15)
[2017-07-27] MEDS ORDERED: LORazepam 2 MG/ML VIAL IV PUSH PRN ×4 (01:15)
[2017-07-27] MEDS ORDERED: FLUMAZENIL 0.5 MG/5 ML VIAL IV PUSH PRN (01:15)
[2017-07-27] MEDS: SODIUM CHLOR 0.9% 1000 ML INJ 1,000 ML IV SCH ×3 (01:30→21:50)
[2017-07-27] MEDS: MORPHINE SULFATE 4 MG/ML INJ IV PUSH PRN ×5 (02:34→22:14)
[2017-07-27] MEDS: SODIUM CHLORIDE 0.9% FLUSH 10 ML FLUSH IV FLUSH SCH ×2 (09:49→21:49)
--- NOTE | 2017-07-27 11:23 | HHI.HP ---
[facility] Primary Care Physician Maxi Branch MD Admission Diagnosis pancreatitis Diagnoses: Chief Complaint: Abdominal pain and nausea Travel History International Travel<30 Days: No Contact w/Intl Traveler <30 Da: No Traveled to Known Affected Are: No History of Present Illness This patient is a 72-year-old female with a history of alcohol dependency worse since her within the last year. She reports drinking Garrett argueta several times daily and increasing her alcohol consumption over the last week. She has had pancreatitis in the past and reports abdominal pain similar to previous episode. She came to the emergency room yesterday for further evaluation and was found have elevated lipase, abdominal pain and of 10 out of [address] abdomen pelvis that showed inflamed pancreas. Since she is come to the hospital her pain is improved with IV morphine her pain has gone from a 10 to a 5. She has had no further nausea. She does live alone but has a primary caregiver that is with her 7 days a week. She notes no fevers or chills and no dysuria or diarrhea or bleeding in upper or lower bowel. Review of Systems Constitutional: COMPLAINS OF: Weight loss (patient is not eating and drinking more), DENIES: Diaphoretic episodes, Fatigue, Fever, Weight gain, Chills, Dizziness, Change in appetite, Night Sweats Endocrine: DENIES: Abnorml menstrual pattern, Heat/cold intolerance, Polydipsia , Polyuria, Polyphagia Eyes: DENIES: Blurred vision, Diplopia, Eye inflammation, Eye pain, Vision loss , Photosensitivity, Double Vision Ears, nose, mouth, throat: DENIES: Tinnitus, Hearing loss, Vertigo, Nasal discharge, Oral lesions, Throat pain, Hoarseness, Ear Pain, Running Nose, Epistaxis, Sinus Pain, Toothache, Odynophagia Respiratory: DENIES: Apneas, Cough, Snoring, Wheezing, Hemoptysis, Sputum production, Shortness of breath Cardiovascular: DENIES: Chest pain, Palpitations, Syncope, Dyspnea on Exertion , PND, Lower Extremity Edema, Orthopnea, Claudication Gastrointestinal: COMPLAINS OF: Abdominal pain, Nausea, Vomiting Genitourinary: DENIES: Abnormal vaginal bleeding, Dysmenorrhea, Dyspareunia, Sexual dysfunction, Urinary frequency, Urinary incontinence, Urgency, Hematuria , Dysuria, Nocturia, Vaginal discharge Musculoskeletal: DENIES: Joint pain, Muscle aches, Stiffness, Joint Swelling, Back pain, Neck pain Integumentary: DENIES: Abnormal pigmentation, Pruritus, Rash, Nail changes, Breast masses, Breast skin changes, Nipple discharge Hematologic/lymphatic: DENIES: Bruising, Lymphadenopathy Immunologic/allergic: DENIES: Eczema, Urticaria Neurologic: DENIES: Abnormal gait, Headache, Localized weakness, Paresthesias, Seizures, Speech Problems, Tremor, Poor Balance Psychiatric: DENIES: Anxiety, Confusion, Mood changes, Depression, Hallucinations, Agitation, Suicidal Ideation, Homicidal Ideation, Delusions Except as stated in HPI: all other systems reviewed are Neg Past Family Social History Past Medical History Hypertension Pancreatitis Past Surgical History left mastectomy Hysterectomy Reported Medications Reviewed in the EMR Allergies: Coded Allergies: Sulfa (Sulfonamide Antibiotics) (Unverified Allergy, Intermediate, rash, ) Active Ordered Medications Reviewed in the EMR Family History Hypertension Social History No tobacco, alcohol daily, lives alone and is recently a Physical Exam Vital Signs Vital Signs Date Time Temp Pulse Resp B/P (MAP) Pulse Ox O2 Delivery O2 Flow Rate FiO2 07/27/17 08:00 97.5 84 18 129/76 (93) 97 07/27/17 02:30 98.2 95 20 140/75 (96) 95 07/27/17 02:19 88 07/27/17 02:01 74 16 147/77 (100) 98 07/27/17 01:00 89 16 160/72 (101) 98 Room Air 07/27/17 00:06 78 16 164/83 (110) 98 Room Air 07/26/17 23:00 86 18 165/86 (112) 165/94 (117) 07/26/17 22:45 98.4 78 16 165/94 (117) 99 Room Air 07/26/17 22:40 98.4 88 16 165/94 (117) 96 Physical Exam GENERAL: This is a well-nourished, well-developed patient, in no apparent distress. SKIN: No rashes, ecchymoses or lesions. Cool and dry. HEAD: Atraumatic. Normocephalic. No temporal or scalp tenderness. EYES: Pupils equal round and reactive. Extraocular motions intact. No scleral icterus. No injection or drainage. ENT: Nose without bleeding, purulent drainage or septal hematoma. Throat without erythema, tonsillar hypertrophy or exudate. Uvula midline. Airway patent. NECK: Trachea midline. No JVD or lymphadenopathy. Supple, nontender, no meningeal signs. CARDIOVASCULAR: Regular rate and rhythm without murmurs, gallops, or rubs. RESPIRATORY: Clear to auscultation. Breath sounds equal bilaterally. No wheezes , rales, or rhonchi. GASTROINTESTINAL: Abdomen soft, moderately tender diffusely, nondistended. Hypoactive bowel sounds MUSCULOSKELETAL: Extremities without clubbing, cyanosis, or edema. No joint tenderness, effusion, or edema noted. No calf tenderness. Negative Homans sign bilaterally. NEUROLOGICAL: Awake and alert. Cranial nerves II through XII intact. Motor and sensory grossly within normal limits. Five out of 5 muscle strength in all muscle groups. Normal speech. Laboratory Laboratory Tests Test 07/26/17 23:00 White Blood Count 11.3 Red Blood Count 4.33 Hemoglobin 13.9 Hematocrit 41.6 Mean Corpuscular Volume 96.2 Mean Corpuscular Hemoglobin 32.1 Mean Corpuscular Hemoglobin Concent 33.4 Red Cell Distribution Width 15.6 Platelet Count 342 Mean Platelet Volume 7.0 Neutrophils (%) (Auto) 72.0 Lymphocytes (%) (Auto) 15.5 Monocytes (%) (Auto) 9.4 Eosinophils (%) (Auto) 0.5 Basophils (%) (Auto) 2.6 Neutrophils # (Auto) 8.1 Lymphocytes # (Auto) 1.7 Monocytes # (Auto) 1.1 Eosinophils # (Auto) 0.1 Basophils # (Auto) 0.3 CBC Comment DIFF FINAL Differential Comment Prothrombin Time 11.0 Prothromb Time International Ratio 1.0 Activated Partial Thromboplast Time 28.0 Blood Urea Nitrogen 15 Creatinine 0.72 Random Glucose 110 Total Protein 8.7 Albumin 3.9 Calcium Level 9.5 Magnesium Level 1.6 Alkaline Phosphatase 103 Aspartate Amino Transf (AST/SGOT) 19 Alanine Aminotransferase (ALT/SGPT) 14 Total Bilirubin 0.7 Sodium Level 125 Potassium Level 3.9 Chloride Level 88 Carbon Dioxide Level 24.7 Anion Gap 12 Estimat Glomerular Filtration Rate 80 Total Creatine Kinase 53 Troponin I LESS THAN 0.02 B-Type Natriuretic Peptide 26 Lipase 8929 Ethyl Alcohol Level LESS THAN 3 Result Diagram: 07/26/17229907/26/172299 Caprini VTE Risk Assessment Sixtoringomez VTE Risk Assessment: Mod/High Risk (score >= 2) Caprini Risk Assessment Model Point Value = 1 Point Value = 2 Point Value = 3 Point Value = 5 Age 41-60 Minor surgery BMI > 25 kg/m2 Swollen legs Varicose veins or History of unexplained or recurrent spontaneous Oral contraceptives or hormone replacement Sepsis (< 1 month) Serious lung disease, including pneumonia (< 1 month) Abnormal pulmonary function Acute myocardial infarction Congestive heart failure (< 1 month) History of inflammatory bowel disease Medical patient at bed rest Age 61-74 Arthroscopic surgery Major open surgery (> 45 min) Laparoscopic surgery (> 45 min) Malignancy Confined to bed (> 72 hours) Immobilizing plaster cast Central venous access Age >= 75 History of VTE Family history of VTE Factor V Leiden Prothrombin [id number] Lupus anticoagulant Anticardiolipin antibodies Elevated serum homocysteine Heparin-induced thrombocytopenia Other congenital or acquired thrombophilia Stroke (< 1 month) Elective arthroplasty Hip, pelvis, or leg fracture Acute spinal cord injury (< 1 month) Prophylaxis Regimen Total Risk Factor Score Risk Level Prophylaxis Regimen 0-1 Low Early ambulation 2 Moderate Order ONE of the following: *Sequential Compression Device (SCD) *Heparin 5000 units SQ BID 3-4 Higher Order ONE of the following medications: *Heparin 5000 units SQ TID *Enoxaparin/Lovenox 40 mg SQ daily (WT < 150 kg, CrCl > 30 mL/min) *Enoxaparin/Lovenox 30 mg SQ daily (WT < 150 kg, CrCl > 10-29 mL/min) *Enoxaparin/Lovenox 30 mg SQ BID (WT < 150 kg, CrCl > 30 mL/min) AND/OR *Sequential Compression Device (SCD) 5 or more Highest Order ONE of the following medications: *Heparin 5000 units SQ TID (Preferred with Epidurals) *Enoxaparin/Lovenox 40 mg SQ daily (WT < 150 kg, CrCl > 30 mL/min) *Enoxaparin/Lovenox 30 mg SQ daily (WT < 150 kg, CrCl > 10-29 mL/min) *Enoxaparin/Lovenox 30 mg SQ BID (WT < 150 kg, CrCl > 30 mL/min) AND *Sequential Compression Device (SCD) Assessment and Plan Problem List: (1) ETOH abuse ICD Code: F10.10 - Alcohol abuse Status: Chronic Plan: Patient with ongoing alcohol abuse and dependency. We'll follow for evidence of withdrawal (2) Recurrent pancreatitis ICD Code: K86.1 - Other chronic pancreatitis Status: Acute Plan: Secondary to ongoing alcohol dependency. Continue with nothing by mouth status, IV hydration and IV morphine for pain PPI (3) Hyponatremia ICD Code: E87.1 - Hyponatremia Status: Acute Plan: Continue IV fluids and follow trend, osmolarity pending (4) Hypothyroid ICD Code: E03.9 - Hypothyroidism Status: Chronic Plan: Resume levothyroxine (5) HTN (hypertension) ICD Code: I10 - Essential (primary) hypertension Status: Chronic Plan: Hold HCTZ as this can exacerbate pancreatitis Continue other home medications and follow blood pressure Assessment and Plan Discussed with patient, nursing team and caregiver at bedside Code Status dnr Physician Certification 2 Midnight Certification Type: Admission for Inpatient Services Order for Inpatient Services The services are ordered in accordance with Medicare regulations or non- Medicare payer requirements, as applicable. In the case of services not specified as inpatient-only, they are appropriately provided as inpatient services in accordance with the 2-midnight benchmark. Estimated LOS (days): 3 3 days is the estimated time the patient will need to remain in the hospital, assuming treatment plan goals are met and no additional complications. Post-Hospital Plan: Criss Freeman MD Jul 27, 2017 11:23
[2017-07-27] MEDS ORDERED: ALPRAZolam 1 MG TAB PO PRN (11:30)
[2017-07-27] MEDS: LEVOTHYROXINE SODIUM 100 MCG TAB PO SCH (12:10)
[2017-07-27] MEDS: PANTOPRAZOLE SOD 40 MG DELAYED RELEASE TAB PO SCH ×2 (12:11→21:49)
[2017-07-27] MEDS: LEVOTHYROXINE SODIUM 75 MCG TAB PO SCH (12:11)
[2017-07-27] MEDS: LEVOFLOXACIN 500 MG TAB PO SCH (14:22)
[2017-07-27] MEDS: HEPARIN SODIUM - SQ 10,000 UNITS/ML VIAL SQ SCH ×2 (14:22→21:50)
--- NOTE | 2017-07-27 16:04 | EKG ---
Date Performed: 07/26/2017 Time Performed: 23:05:23 PTAGE: 72 years EKG: Sinus rhythm NORMAL ECG Since PREVIOUS TRACING , no significant change noted PREVIOUS TRACIN07/04/2017 15.17 DOCTOR: Lucero Caballero Interpretating Date/Time 07/27/2017 16:03:21
[2017-07-27] MEDS ORDERED: diphenhydrAMINE HCL 50 MG CAP PO PRN (18:00)
[2017-07-27] MEDS: hydrOXYzine HCL 25 MG TAB PO PRN (21:49)
[2017-07-28] VITALS: BP 142/80; PULSE 85; RESP 18; TEMP 98.1; O2SAT 96
[2017-07-28] MEDS: hydrOXYzine HCL 25 MG TAB PO PRN ×2 (03:44→08:13)
[2017-07-28] MEDS: MORPHINE SULFATE 4 MG/ML INJ IV PUSH PRN (03:45)
[2017-07-28 04:00] VITALS: BP 179/96; PULSE 86; RESP 16; TEMP 98.8; O2SAT 99
[2017-07-28] MEDS: LEVOTHYROXINE SODIUM 75 MCG TAB PO SCH (05:50)
[2017-07-28] MEDS: LEVOTHYROXINE SODIUM 100 MCG TAB PO SCH (05:50)
[2017-07-28] MEDS: HEPARIN SODIUM - SQ 10,000 UNITS/ML VIAL SQ SCH ×2 (05:51→12:50)
[2017-07-28] MEDS: SODIUM CHLOR 0.9% 1000 ML INJ 1,000 ML IV SCH (06:16)
[2017-07-28 06:53] LABS: AUTOMATED NEUTROPHIL # 3.3 TH/MM3 (1.8-7.7); BASOPHIL % 0.3 % (0.0-2.0); EOSINOPHIL # 0.1 TH/MM3 (0-0.4); EOSINOPHIL % 1.3 % (0.0-4.0); HEMATOCRIT 35.4 % (35.0-46.0); HEMO FLAGS DIFF FINAL; LYMPH % 25.7 % (9.0-44.0); LYMPHOCYTE # 1.5 TH/MM3 (1.0-4.8); MEAN CORPUSCULAR HEMOGLOBIN 32.8 PG (27.0-34.0); MEAN CORPUSCULAR HGB CONC 33.5 % (32.0-36.0); MONO % 14.9 % (0.0-8.0); NEUT % 57.8 % (16.0-70.0); PLATELET COUNT 250 TH/MM3 (150-450); RED BLOOD COUNT 3.62 MIL/MM3 (4.00-5.30); RED CELL DISTRIBUTION WIDTH 16.4 % (11.6-17.2); WHITE BLOOD COUNT 5.8 TH/MM3 (4.0-11.0)
[2017-07-28 07:16] LABS: ALKALINE PHOSPHATASE 76 U/L (45-117); ALT (GPT) 12 U/L (10-53); ANION GAP 10 MEQ/L (5-15); AST (GOT) 14 U/L (15-37); BICARBONATE 24.2 MEQ/L (21.0-32.0); BLOOD UREA NITROGEN 9 MG/DL (7-18); CHLORIDE 98 MEQ/L (98-107); GLOMERULAR FILTRATION RATE 81 ML/MIN (>89); POTASSIUM 3.6 MEQ/L (3.5-5.1); SODIUM (NA) 132 MEQ/L (136-145); TOTAL BILIRUBIN ADULT 0.8 MG/DL (0.2-1.0)
[2017-07-28 08:00] VITALS: BP 155/82; PULSE 81; RESP 18; TEMP 98.1; O2SAT 96
[2017-07-28] MEDS: PANTOPRAZOLE SOD 40 MG DELAYED RELEASE TAB PO SCH (08:13)
[2017-07-28] MEDS: SODIUM CHLORIDE 0.9% FLUSH 10 ML FLUSH IV FLUSH SCH (08:13)
[2017-07-28] MEDS: LEVOFLOXACIN 500 MG TAB PO SCH (08:13)
[2017-07-28] MEDS ORDERED: INFLUENZA VIRUS VACCINE (QUADRIVALENT) 0.5 ML SYR IM ONE (09:00)
[2017-07-28] MEDS ORDERED: LOSARTAN 50 MG TAB PO SCH (09:00)
[2017-07-28] MEDS ORDERED: VENLAFAXINE HCL XR 75 MG CAP PO SCH (09:00)
[2017-07-28] MEDS ORDERED: ACET300T49 PO (11:50)
[2017-07-28] MEDS ORDERED: AZIT500T2 PO (11:50)
--- NOTE | 2017-07-28 11:50 | HHI.DCPOC ---
Discharge Care Plan Diagnosis: (1) ETOH abuse (2) Recurrent pancreatitis Goals to Promote Your Health * To prevent worsening of your condition and complications * To maintain your health at the optimal level Directions to Meet Your Goals Take your medications as prescribed Follow your dietary instruction Follow activity as directed Keep your appointments as scheduled Take your immunizations and boosters as scheduled If your symptoms worsen call your PCP, if no PCP go to Urgent Care Center or Emergency Room Smoking is Dangerous to Your Health. Avoid second hand smoke Call the 24-hour hour crisis hotline for domestic abuse at Criss Ken MD Jul 28, 2017 11:50
--- NOTE | 2017-07-28 11:53 | HHI.DS ---
[facility] Discharge Summary Admission Date Jul 27, 2017 at 01:12 Discharge Date: Jul 28, 2017 Admitting Diagnosis pancreatitis (1) ETOH abuse ICD Code: F10.10 - Alcohol abuse Status: Chronic (2) Recurrent pancreatitis ICD Code: K86.1 - Other chronic pancreatitis Status: Acute (3) Hyponatremia ICD Code: E87.1 - Hyponatremia Status: Acute (4) Hypothyroid ICD Code: E03.9 - Hypothyroidism Status: Chronic (5) HTN (hypertension) ICD Code: I10 - Essential (primary) hypertension Status: Chronic Procedures none Brief History - From Admission This patient is a 72-year-old female with a history of alcohol dependency worse since her within the last year. She reports drinking Garrett Prieto argueta several times daily and increasing her alcohol consumption over the last week. She has had pancreatitis in the past and reports abdominal pain similar to previous episode. She came to the emergency room yesterday for further evaluation and was found have elevated lipase, abdominal pain and of 10 out of [address] abdomen pelvis that showed inflamed pancreas. Since she is come to the hospital her pain is improved with IV morphine her pain has gone from a 10 to a 5. She has had no further nausea. She does live alone but has a primary caregiver that is with her 7 days a week. She notes no fevers or chills and no dysuria or diarrhea or bleeding in upper or lower bowel. CBC/BMP: 07/28/17 0514 07/28/17 0514 Significant Findings Laboratory Tests Test 07/26/17 23:00 07/28/17 05:14 White Blood Count 11.3 TH/MM3 (4.0-11.0) Neutrophils (%) (Auto) 72.0 % (16.0-70.0) Monocytes (%) (Auto) 9.4 % (0.0-8.0) 14.9 % (0.0-8.0) Basophils (%) (Auto) 2.6 % (0.0-2.0) Neutrophils # (Auto) 8.1 TH/MM3 (1.8-7.7) Monocytes # (Auto) 1.1 TH/MM3 (0-0.9) Basophils # (Auto) 0.3 TH/MM3 (0-0.2) Random Glucose 110 MG/DL (74-106) Total Protein 8.7 GM/DL (6.4-8.2) Sodium Level 125 MEQ/L (136-145) 132 MEQ/L (136-145) Chloride Level 88 MEQ/L (98-107) Estimat Glomerular Filtration Rate 80 ML/MIN (>89) 81 ML/MIN (>89) Troponin I LESS THAN 0.02 NG/ML Lipase 8929 U/L (73-393) 805 U/L (73-393) Red Blood Count 3.62 MIL/MM3 (4.00-5.30) Albumin 3.0 GM/DL (3.4-5.0) Aspartate Amino Transf (AST/SGOT) 14 U/L (15-37) Imaging Last Impressions Chest X-Ray 07/26/172248 Signed Impressions: Service Date/Time: Wednesday, July 26, 2017 23:12 - CONCLUSION: No acute disease. Estevan Pope MD Aorta CTA 07/26/172248 Signed Impressions: Service Date/Time: Wednesday, July 26, 2017 23:50 - CONCLUSION: 1. Chronic and acute pancreatitis of the pancreatic head and uncinate process. This process appears to progressed since the prior exam. 2. Suspected hepatic and renal cysts. 3. Calcified lymph nodes left hilum and in the spleen. 4. Mild hiatal hernia. 5. Scattered atherosclerotic calcifications. No aneurysm or dissection is seen. Estevan Pope MD PE at Discharge GENERAL: This is a well-nourished, well-developed patient, in no apparent distress. CARDIOVASCULAR: Regular rate and rhythm without murmurs, gallops, or rubs. RESPIRATORY: Clear to auscultation. Breath sounds equal bilaterally. No wheezes , rales, or rhonchi. GASTROINTESTINAL: Abdomen soft, non-tender, nondistended. Normal active bowel sounds MUSCULOSKELETAL: Extremities without clubbing, cyanosis, or edema. NEURO: Alert & Oriented x4 to person, place, time, situation. Moves all ext x4 Pt update on day of discharge Patient seen today in follow-up for hyponatremia and pancreatitis. Pain is resolved. Patient complaining of some itching likely related to Levaquin started yesterday. Discharge plans discussed with patient she is agreeable. Antibiotics changed to azithromycin which she has taken without difficulty in the past Hospital Course this patient is a 72-year-old female who recently lost her and has had excessive drinking over the last year. She has had several episodes of pancreatitis and was admitted for the same. She improved with IV hydration, bowel rest and IV narcotics. She had some sinus trouble with pressure and pain and she began some improvement with Levaquin but did have some itching after it was started and the antibiotics were changed. She was hyponatremic and this was treated with IV hydration. She was counseled against alcohol dependency issues and was discharged home Pt Condition on Discharge: Good Discharge Disposition: Discharge Home Discharge Time: <= 30 minutes Discharge Instructions DIET: Follow Instructions for: Low Fat Diet Activities you can perform: Regular-No Restrictions New Medications: Acetaminophen-Codeine (Acetaminophen-Codeine) 300-15 mg Tab 1 TAB PO Q6H PRN for PAIN, #20 TAB 0 Refills Azithromycin (Azithromycin) 500 Mg Tab 500 MG PO DAILY for Infection, #5 TAB 0 Refills Continued Medications: Alprazolam (Alprazolam) 1 Mg Tab 1 MG PO HS PRN for ANXIETY, TAB 0 Refills Cholecalciferol (Vitamin D3) 5,000 Unit Cap 5000 UNITS PO DAILY for Nutritional Supplement, #60 CAP 1 Refill Desvenlafaxine ER 24 HR (Pristiq 24 HR) 100 Mg Tab 100 MG PO DAILY, TAB Docusate Sodium (Dok) 100 Mg Cap 100 MG PO BID, #60 CAP [address] (Nexium) 40 Mg Capdr 40 MG PO DAILY, #30 CAP 1 Refill Levothyroxine (Levothyroxine) 175 Mcg Tab 175 MCG PO DAILY for Thyroid, #30 TAB 0 Refills Losartan (Losartan) 100 Mg Tab 100 MG PO DAILY for Blood Pressure Management, #30 TAB 0 Refills Multiple Vitamin (Thera/Beta-Carotene) 1 Tab Tab 1 TAB PO DAILY, #30 TAB 1 Refill Triamterene-Hydrochlorothiazide (Maxzide) 75-50 Mg Tab 1 TAB PO DAILY, #30 TAB 0 Refills Venlafaxine ER 24 HR (Effexor XR 24 HR) 75 Mg Cap 150 MG PO DAILY, #60 CAP Criss Ken MD Jul 28, 2017 11:53
[2017-07-28 12:00] VITALS: BP 155/77; PULSE 89; RESP 18; TEMP 98.4; O2SAT 96
[2017-07-28 16:00] VITALS: BP 151/78; PULSE 80; RESP 18; TEMP 97.4; O2SAT 96
== END 2017-07-28 19:15 | disposition home or self-care (01) | DRG 439 ==
LOC: PHED 22:37 → PHEDA 07-27 01:12 → PH3B 07-27 02:15
PROVIDERS: ADMIT Hospitalist; ATTEND Hospitalist
DX: K85.90 Acute pancreatitis without necrosis or infection, unspecified (principal); E87.1 Hypo-osmolality and hyponatremia; I10 Essential (primary) hypertension; E03.9 Hypothyroidism, unspecified; F10.20 Alcohol dependence, uncomplicated; H91.90 Unspecified hearing loss, unspecified ear; I25.10 Atherosclerotic heart disease of native coronary artery without angina pectoris; K21.9 Gastro-esophageal reflux disease without esophagitis; F32.9 Major depressive disorder, single episode, unspecified; F41.9 Anxiety disorder, unspecified; M19.90 Unspecified osteoarthritis, unspecified site; Z66 Do not resuscitate; Z96.649 Presence of unspecified artificial hip joint; Z23 Encounter for immunization; Z85.3 Personal history of malignant neoplasm of breast; Z86.73 Personal history of transient ischemic attack (TIA), and cerebral infarction without residual deficits
CPT/HCPCS: 71010; 71275; 74174; 80053; 80307; 82550; 83690; 83735; 83880; 84443; 84484; 85025; 85610; 85730; 93005; 96361; 96374; 96375; J1644; J2270; J2405; J7030; Q0163; Q9967

== ENCOUNTER 2017-08-04 00:14 | Emergency (ER) | payer BC, MEDICARE ==
[~2017-08-04] VITALS: Ht 165.1 cm; Wt 65.0 kg
[~2017-08-04 00:14] MED LIST changes: +ACET300T49 PO; +AZIT500T2 PO
[2017-08-04 00:21] VITALS: BP 182/83; PULSE 100; RESP 16; TEMP 98.3; O2SAT 99
[2017-08-04] MEDS ORDERED: CREO3000 PO (00:32)
--- NOTE | 2017-08-04 00:37 | PD ---
HPI Chief Complaint: Abdominal Pain Time Seen by Provider: 00:36 Travel History International Travel<30 days: No Contact w/Intl Traveler<30days: No Traveled to known affect area: No History of Present Illness HPI 72-year-old female came to the emergency room with history of abdominal pain, nausea and vomiting and diarrhea. Patient seems extremely anxious and cannot focus and give me answers properly. She says the symptoms started early this morning but she doesn't know how many times she vomited or had the diarrhea episode. She drinks alcohol but does not know when she last drank. She has history of acute pancreatitis. Vital signs were stable. She is hard of hearing. She points to her entire abdomen describing the location of the pain. [facility] Past Medical History Narrative Medical List of her past medical, surgical, social and family history is reviewed from the nursing note. Hx Anticoagulant Therapy: Yes (ASPIRIN) Arthritis: Yes Asthma: No Autoimmune Disease: Yes (RA) Blood Disorders: No Anxiety: Yes Depression: Yes Heart Rhythm Problems: No Cancer: Yes (LEFT BREAST CA) Cardiovascular Problems: Yes High Cholesterol: No Chemotherapy: No Chest Pain: No Congestive Heart Failure: No COPD: No Cerebrovascular Accident: Yes (2016) Coronary Artery Disease: Yes Diabetes: No Diminished Hearing: Yes Endocrine: Yes (CHRONIC PANCREATITIS) Gastrointestinal Disorders: Yes (GASTRIC ULCERS) GERD: Yes Genitourinary: No Headaches: Yes Hiatal Hernia: No Heparin Induced Thrombocytopen: No Hypertension: Yes Immune Disorder: Yes Implanted Vascular Access Dvce: No Kidney Stones: No Medical other: Yes (FLUID RETENTION-ACID REFLUX) Musculoskeletal: Yes Neurologic: Yes Psychiatric: Yes Reproductive: No Respiratory: No Immunizations Current: Yes Migraines: Yes Pancreatitis: Yes Radiation Therapy: Yes Renal Failure: No Seizures: Yes Sickle Cell Disease: No Sleep Apnea: No Thyroid Disease: Yes (HYPOTHYROID) Ulcer: Yes Tetanus Vaccination: Unknown ?: Not Menopausal: Yes : 2 Para: 1 Miscarriage: 1 Past Surgical History Abdominal Surgery: Yes (LYSIS OF ADHESIONS ) AICD: No Appendectomy: Yes Arteriovenous Shunt: No Body Medical Devices: L hip hardware in place Cardiac Surgery: No Cholecystectomy: Yes Ear Surgery: No Endocrine Surgery: No Eye Surgery: No Genitourinary Surgery: No Gynecologic Surgery: Yes (HYSTERECTOMY) Hysterectomy: Yes Insulin Pump: No Joint Replacement: No Neurologic Surgery: No Oral Surgery: No Pacemaker: No Thoracic Surgery: No Other Surgery: Yes (COLDWELL/SINUS REPAIR, LEFT LUMPECTOMY) Social History Alcohol Use: Yes (DAILY LIQUOR/WINE USE) Tobacco Use: No Substance Use: No Allergies-Medications (Allergen,Severity, Reaction): Coded Allergies: Sulfa (Sulfonamide Antibiotics) (Unverified Allergy, Intermediate, rash, 08/04/17) Comments List of her allergies reviewed from the nursing note. Reported Meds & Prescriptions Reported Meds & Active Scripts Active Hydrocodone-Acetaminophen 5-325 mg Tab 1 Tab PO Q6H PRN Macrobid (Nitrofurantoin Monoh/Nitrofur Macro) 100 Mg Cap 100 Mg PO BID 10 Days Acetaminophen-Codeine 300-15 mg Tab 1 Tab PO Q6H PRN Thera/Beta-Carotene (Multiple Vitamin) 1 Tab Tab 1 Tab PO DAILY Effexor XR 24 HR (Venlafaxine HCl) 75 Mg Cap 150 Mg PO DAILY Nexium (Esomeprazole DR) 40 Mg Capdr 40 Mg PO DAILY Reported Creon (Pancrelipase) 3,000-9,500-15,000 Units Cap 1 Cap PO TIDPC Maxzide (Triamterene/HCTZ) 75-50 Mg Tab 1 Tab PO DAILY Losartan (Losartan Potassium) 100 Mg Tab 100 Mg PO DAILY Alprazolam 1 Mg Tab 1 Mg PO HS PRN Levothyroxine (Levothyroxine Sodium) 175 Mcg Tab 175 Mcg PO DAILY Pristiq 24 HR (Desvenlafaxine ER 24 HR) 100 Mg Tab 100 Mg PO DAILY Narrative Medication List of her home medications reviewed from the nursing note. Review of Systems Except as stated in HPI: all other systems reviewed are Neg Gastrointestinal: Positive: Diarrhea, Abdominal Pain Physical Exam Narrative GENERAL: Awake, alert, anxious, moderate distress SKIN: Focused skin assessment warm/dry. HEAD: Atraumatic. Normocephalic. EYES: Pupils equal and round. No scleral icterus. No injection or drainage. ENT: No nasal bleeding or discharge. Mucous membranes pink and moist. NECK: Trachea midline. No JVD. CARDIOVASCULAR: Regular rate and rhythm. No murmur appreciated. RESPIRATORY: No accessory muscle use. Clear to auscultation. Breath sounds equal bilaterally. GASTROINTESTINAL: Abdomen soft, non-tender, nondistended. Hepatic and splenic margins not palpable. MUSCULOSKELETAL: No obvious deformities. No clubbing. No cyanosis. No edema. NEUROLOGICAL: Awake and alert. No obvious cranial nerve deficits. Motor grossly within normal limits. Normal speech. PSYCHIATRIC: Appropriate mood and affect; insight and judgment normal. Data Data Last Documented VS Orders Orders Complete Blood Count With Diff (08/04/17 00:55) Comprehensive Metabolic Panel (08/04/17 00:55) Lipase (08/04/17 00:55) Urinalysis - C+S If Indicated (08/04/17 00:55) Iv Access Insert/Monitor (08/04/17 00:55) Ecg Monitoring (08/04/17 00:55) Oximetry (08/04/17 00:55) Ondansetron Inj (Zofran Inj) (08/04/17 01:00) Sodium Chlor 0.9% 1000 Ml Inj (Ns 1000 M (08/04/17 00:55) Sodium Chloride 0.9% Flush (Ns Flush) (08/04/17 01:00) Urine Culture (08/04/17 03:00) Potassium Chloride (Kcl) (08/04/17 04:00) Nitrofurantoin Monohyd Macrocr (Macrobid (08/04/17 04:00) Ed Discharge Order (08/04/17 04:30) Labs Laboratory Tests Test 08/04/17 01:00 08/04/17 03:00 White Blood Count 7.6 TH/MM3 Red Blood Count 3.82 MIL/MM3 Hemoglobin 13.0 GM/DL Hematocrit 36.6 % Mean Corpuscular Volume 95.8 FL Mean Corpuscular Hemoglobin 34.1 PG Mean Corpuscular Hemoglobin Concent 35.6 % Red Cell Distribution Width 15.5 % Platelet Count 358 TH/MM3 Mean Platelet Volume 7.2 FL Neutrophils (%) (Auto) 72.1 % Lymphocytes (%) (Auto) 16.3 % Monocytes (%) (Auto) 10.9 % Eosinophils (%) (Auto) 0.1 % Basophils (%) (Auto) 0.6 % Neutrophils # (Auto) 5.4 TH/MM3 Lymphocytes # (Auto) 1.2 TH/MM3 Monocytes # (Auto) 0.8 TH/MM3 Eosinophils # (Auto) 0.0 TH/MM3 Basophils # (Auto) 0.0 TH/MM3 CBC Comment DIFF FINAL Differential Comment Blood Urea Nitrogen 12 MG/DL Creatinine 0.58 MG/DL Random Glucose 107 MG/DL Total Protein 7.8 GM/DL Albumin 3.6 GM/DL Calcium Level 9.0 MG/DL Alkaline Phosphatase 91 U/L Aspartate Amino Transf (AST/SGOT) 15 U/L Alanine Aminotransferase (ALT/SGPT) 14 U/L Total Bilirubin 0.7 MG/DL Sodium Level 131 MEQ/L Potassium Level 3.1 MEQ/L Chloride Level 99 MEQ/L Carbon Dioxide Level 17.8 MEQ/L Anion Gap 14 MEQ/L Estimat Glomerular Filtration Rate 103 ML/MIN Lipase 435 U/L Urine Color LIGHT-YELLOW Urine Turbidity CLOUDY Urine pH 6.0 Urine Specific [place] 1.008 Urine Protein 100 mg/dL Urine Glucose (UA) NEG mg/dL Urine Ketones 10 mg/dL Urine Occult Blood MOD Urine Nitrite NEG Urine Bilirubin NEG Urine Urobilinogen LESS THAN 2.0 MG/DL Urine Leukocyte Esterase LARGE Urine RBC 7 /hpf Urine WBC 49 /hpf Urine Squamous Epithelial Cells 80 /hpf Urine Bacteria MOD /hpf Urine Mucus FEW /lpf Microscopic Urinalysis Comment CULTURE INDICATED MDM Medical Decision Making Medical Screen Exam Complete: Yes Emergency Medical Condition: Yes Medical Record Reviewed: Yes Differential Diagnosis Acute pancreatitis, electrolyte abnormalities Narrative Course 4:37 AM blood test results of back and potassium is moderately low, lipase is slightly elevated. UA suggestive of UTI. I've ordered by mouth potassium replacement and Macrobid for her UTI. Patient had received IV fluid bolus initially. At this point I'm comfortable discharging her home. I was told by the nurse that patient will have to wait till the morning for her regional ehs manager to come and take her home. Procedures EKG Prior to Arrival: No Diagnosis Primary Impression: Pancreatitis Qualified Codes: K85.20 - Alcohol induced acute pancreatitis without necrosis or infection Additional Impressions: UTI (urinary tract infection) Qualified Codes: N39.0 - Urinary tract infection, site not specified Chronic alcoholism Referrals: Primary Care Physician Additional Instructions: He should quit smoking in order to prevent pancreatitis flareup. Take the medication as per the prescription direction. Follow-up with your primary care. Med/Other Pt SpecificInfo: Prescription(s) given Scripts Hydrocodone-Acetaminophen (Hydrocodone-Acetaminophen) 5-325 mg Tab 1 TAB PO Q6H Y for PAIN, #10 TAB 0 Refills Prov: Donnell Reyes MD 08/04/17 Nitrofurantoin Monohydrate Macrocrystals (Macrobid) 100 Mg Cap 100 MG PO BID for Infection for 10 Days, #20 CAP 0 Refills Prov: Donnell Reyes MD 08/04/17 Disposition: 01 DISCHARGE HOME Condition: Stable Donnell Reyes MD Aug 04, 2017 00:37
[2017-08-04] MEDS ORDERED: SODIUM CHLOR 0.9% 1000 ML INJ 1,000 ML IV SCH (00:55)
[2017-08-04] MEDS ORDERED: ONDANSETRON HCL 4 MG/2 ML VIAL IVP ONE (01:00)
[2017-08-04] MEDS ORDERED: SODIUM CHLORIDE 0.9% FLUSH 10 ML FLUSH IV FLUSH PRN (01:00)
[2017-08-04 01:39] LABS: AUTOMATED NEUTROPHIL # 5.4 TH/MM3 (1.8-7.7); BASOPHIL % 0.6 % (0.0-2.0); EOSINOPHIL % 0.1 % (0.0-4.0); HEMATOCRIT 36.6 % (35.0-46.0); HEMO FLAGS DIFF FINAL; LYMPH % 16.3 % (9.0-44.0); LYMPHOCYTE # 1.2 TH/MM3 (1.0-4.8); MEAN CELL VOLUME 95.8 FL (80.0-100.0); MEAN CORPUSCULAR HEMOGLOBIN 34.1 PG (27.0-34.0); MEAN CORPUSCULAR HGB CONC 35.6 % (32.0-36.0); MONO % 10.9 % (0.0-8.0); NEUT % 72.1 % (16.0-70.0); PLATELET COUNT 358 TH/MM3 (150-450); RED BLOOD COUNT 3.82 MIL/MM3 (4.00-5.30); RED CELL DISTRIBUTION WIDTH 15.5 % (11.6-17.2); WHITE BLOOD COUNT 7.6 TH/MM3 (4.0-11.0)
[2017-08-04 02:12] LABS: ALT (GPT) 14 U/L (10-53); ANION GAP 14 MEQ/L (5-15); AST (GOT) 15 U/L (15-37); BICARBONATE 17.8 MEQ/L (21.0-32.0); BLOOD UREA NITROGEN 12 MG/DL (7-18); CHLORIDE 99 MEQ/L (98-107); GLOMERULAR FILTRATION RATE 103 ML/MIN (>89); POTASSIUM 3.1 MEQ/L (3.5-5.1); SODIUM (NA) 131 MEQ/L (136-145)
[2017-08-04 02:14] LABS: ALKALINE PHOSPHATASE 91 U/L (45-117); TOTAL BILIRUBIN ADULT 0.7 MG/DL (0.2-1.0)
[2017-08-04 03:02] VITALS: BP 165/82; PULSE 88; RESP 15; O2SAT 98
[2017-08-04 03:31] LABS: BACTERIA, URINE MOD /hpf; BLOOD, URINE MOD (NEG); COMMENT (UR) CULTURE INDICATED; CULTURE IF INDICATED CULTURE INDICATED; GLUCOSE,URINE NEG (NEG); KETONE, URINE 10 mg/dL (NEG); MUCUS URINE FEW /lpf (OCC); NITRITE,URINE NEG (NEG); SQUAMOUS EPITHELIAL CELL URINE 80 /hpf (0-5); URINE COLOR LIGHT-YELLOW (YELLW/STRAW)
[2017-08-04] MEDS ORDERED: POTASSIUM CHLORIDE 20 MEQ CONTROLLED RELEASE TAB PO ONE (04:00)
[2017-08-04] MEDS ORDERED: NITROFURANTOIN MONOHYD MACROCR 100 MG CAP PO ONE (04:00)
[2017-08-04] MEDS ORDERED: HYDR-3516 PO (04:21)
[2017-08-04] MEDS ORDERED: MACR100C2 PO (04:21)
[2017-08-04 04:32] VITALS: BP 167/82; PULSE 94; RESP 20; TEMP 98.3; O2SAT 99
== END 2017-08-04 06:34 | disposition home or self-care (01) ==
LOC: NEPC 00:14
DX: K85.90 Acute pancreatitis without necrosis or infection, unspecified (principal); N39.0 Urinary tract infection, site not specified; B96.89 Other specified bacterial agents as the cause of diseases classified elsewhere; R11.2 Nausea with vomiting, unspecified; E03.9 Hypothyroidism, unspecified; K21.9 Gastro-esophageal reflux disease without esophagitis; I10 Essential (primary) hypertension; I25.10 Atherosclerotic heart disease of native coronary artery without angina pectoris; F41.9 Anxiety disorder, unspecified
CPT/HCPCS: 80053; 81001; 83690; 85025; 87086; 96361; 96374; 99285; J2405; J7030

== ENCOUNTER 2017-08-10 23:04 | Emergency (ER) | payer BC, MEDICARE ==
[~2017-08-10] VITALS: Ht 157.5 cm; Wt 65.0 kg
[~2017-08-10 23:04] MED LIST changes: -AZIT500T2 PO; -CHOL5000 PO; +CREO3000 PO; -DOCU1CAP39 PO; +HYDR-3516 PO; +MACR100C2 PO
[2017-08-10 23:17] VITALS: BP 151/72; PULSE 105; RESP 18; TEMP 98.5; O2SAT 98
--- NOTE | 2017-08-11 00:28 | RADRPT ---
EXAM DATE/TIME: 08/11/2017 00:00 [facility] COMPARISON: SHOULDER RIGHT COMPLETE (>2VWS), March 12, 2015, 11:56. INDICATIONS : Right Shoulder pain post fall MEDICAL HISTORY : Gastroesophageal reflux disease. Hypothyroidism. Hypertension. Pancreatitis. Left breast carcin alyce. CAD. SURGICAL HISTORY : Appendectomy. Hysterectomy. Radiation therapy. Blood transfusions. ENCOUNTER: Initial ACUITY: 1 day PAIN SCORE: 8/10 LOCATION: Right Shoulder FINDINGS: 3 views of the right shoulder. There is a fracture of the distal clavicle 1.4 cm from the acromioclav icular joint with 4 mm displacement. Mild superior shift of the clavicle at the acromioclavicular rani nt measuring approximately 3 mm. Glenohumeral joint within normal limits. CONCLUSION: Acute distal clavicle fracture. Anil Bo MD on August 11, 2017 at 0:25 Board Certified Radiologist. This report was verified electronically.
--- NOTE | 2017-08-11 00:30 | RADRPT ---
EXAM DATE/TIME: 08/11/2017 00:04 [facility] COMPARISON: No previous studies available for comparison. INDICATIONS : Right arm pain post fall MEDICAL HISTORY : Gastroesophageal reflux disease. Hypothyroidism. Hypertension. Pancreatitis. Left breast carcin alyce. CAD. SURGICAL HISTORY : Appendectomy. Hysterectomy. Radiation therapy. Blood transfusions. ENCOUNTER: Initial ACUITY: 1 day PAIN SCORE: 3/10 LOCATION: Right Elbow FINDINGS: 2 views of right elbow. Bone alignment within normal limits. No evidence of fracture. No evidence of joint narrowing. Evaluation for effusion is limited on this study due to the obliquity of the latera l view. CONCLUSION: No gross evidence of fracture on limited elbow series. Anil Bo MD on August 11, 2017 at 0:27 Board Certified Radiologist. This report was verified electronically.
--- NOTE | 2017-08-11 00:34 | RADRPT ---
EXAM DATE/TIME: 08/11/2017 00:11 [facility] COMPARISON: CT BRAIN W/O CONTRAST, October 13, 2016, 12:22. INDICATIONS : Fall, hit head RADIATION DOSE: 38.42 CTDIvol (mGy) MEDICAL HISTORY : Cerebrovascular disease. Hypertension. Cardiovascular diseasebreast cancer SURGICAL HISTORY : Appendectomy. Cholecystectomy.Hysterectomy. ENCOUNTER: Initial ACUITY: 1 day PAIN SCALE: 4/10 LOCATION: cranial TECHNIQUE: Multiple contiguous axial images were obtained of the head. Using automated exposure control and adj ustment of the mA and/or kV according to patient size, radiation dose was kept as low as reasonably a chievable to obtain optimal diagnostic quality images. DICOM format image data is available electro nically for review and comparison. FINDINGS: CEREBRUM: Diffuse prominence of the ventricles, sulci, and cisterns indicating diffuse atrophy unchanged from t he prior study. No evidence of midline shift, mass lesion, hemorrhage or acute infarction. No extra -axial fluid collections are seen. POSTERIOR FOSSA: The cerebellum and brainstem are intact. The 4th ventricle is midline. The cerebellopontine angle i s unremarkable. EXTRACRANIAL: The visualized portion of the orbits is intact. SKULL: Right frontal scalp hematoma. The calvaria is intact. No evidence of skull fracture. CONCLUSION: Right frontal scalp hematoma. No acute intracranial findings. Anil Bo MD on August 11, 2017 at 0:29 Board Certified Radiologist. This report was verified electronically.
--- NOTE | 2017-08-11 01:41 | PD ---
HPI Chief Complaint: Fall Time Seen by Provider: 23:08 Travel History International Travel<30 days: No Contact w/Intl Traveler<30days: No Traveled to known affect area: No History of Present Illness HPI Patient is a 72-year-old female who lives alone she has a home health aide who was with her most the time.. however tonight the patient was walking got up from her rocker and slipped on a calendar which was on the floor she slipped and hit her head and right sided frontal with a swelling as well as pain in her right shoulder. Apparently the patient called her home health aide who was not there the time who then called 911 and the paramedics found the patient. Patient drinks a few drinks at night and this is normal for the patient to health home health care says in the ER the patient has localized pain to the forehead and the right shoulder it is throbbing in her shoulder which hurts more than the head it happened just prior to arrival they gave her nothing for the pain and she is not seen another doctor for this acute injury PFSH Past Medical History Hx Anticoagulant Therapy: Yes Arthritis: Yes Asthma: No Autoimmune Disease: Yes (RA) Blood Disorders: No Anxiety: Yes Depression: Yes Heart Rhythm Problems: No Cancer: Yes (LEFT BREAST CA) Cardiovascular Problems: Yes High Cholesterol: No Chemotherapy: No Chest Pain: No Congestive Heart Failure: No COPD: No Cerebrovascular Accident: Yes (2015) Coronary Artery Disease: Yes Diabetes: No Diminished Hearing: Yes Endocrine: Yes (CHRONIC PANCREATITIS) Gastrointestinal Disorders: Yes (GASTRIC ULCERS) GERD: Yes Genitourinary: No Headaches: Yes Hiatal Hernia: No Heparin Induced Thrombocytopen: No Hypertension: Yes Immune Disorder: Yes Implanted Vascular Access Dvce: No Kidney Stones: No Medical other: Yes (FLUID RETENTION-ACID REFLUX) Musculoskeletal: Yes Neurologic: Yes Psychiatric: Yes Reproductive: No Respiratory: No Immunizations Current: Yes Migraines: Yes Pancreatitis: Yes Radiation Therapy: Yes Renal Failure: No Seizures: Yes Sickle Cell Disease: No Sleep Apnea: No Thyroid Disease: Yes (HYPOTHYROID) Ulcer: Yes Tetanus Vaccination: Unknown Influenza Vaccination: Yes Menopausal: Yes : 2 Para: 1 Miscarriage: 1 Past Surgical History Abdominal Surgery: Yes (LYSIS OF ADHESIONS ) AICD: No Appendectomy: Yes Arteriovenous Shunt: No Body Medical Devices: L hip hardware in place Cardiac Surgery: No Cholecystectomy: Yes Ear Surgery: No Endocrine Surgery: No Eye Surgery: No Genitourinary Surgery: No Gynecologic Surgery: Yes (HYSTERECTOMY) Hysterectomy: Yes Insulin Pump: No Joint Replacement: No Neurologic Surgery: No Oral Surgery: No Pacemaker: No Thoracic Surgery: No Other Surgery: Yes (COLDWELL/SINUS REPAIR, LEFT LUMPECTOMY) Social History Alcohol Use: Yes (DAILY LIQUOR/WINE USE) Tobacco Use: No Substance Use: No Allergies-Medications (Allergen,Severity, Reaction): Coded Allergies: Sulfa (Sulfonamide Antibiotics) (Unverified Allergy, Intermediate, rash, 08/10/17) Reported Meds & Prescriptions Reported Meds & Active Scripts Active Tylenol-Codeine #3 (Acetaminophen-Codeine) 300-30 mg Tab 1 Tab PO Q4H PRN [place] (Hydrocodone-Acetaminophen) 5 Mg-325 Mg Tab 1 Tab PO Q4H PRN Hydrocodone-Acetaminophen 5-325 mg Tab 1 Tab PO Q6H PRN Macrobid (Nitrofurantoin Monoh/Nitrofur Macro) 100 Mg Cap 100 Mg PO BID 10 Days Acetaminophen-Codeine 300-15 mg Tab 1 Tab PO Q6H PRN Thera/Beta-Carotene (Multiple Vitamin) 1 Tab Tab 1 Tab PO DAILY Effexor XR 24 HR (Venlafaxine HCl) 75 Mg Cap 150 Mg PO DAILY Nexium (Esomeprazole DR) 40 Mg Capdr 40 Mg PO DAILY Reported Creon (Pancrelipase) 3,000-9,500-15,000 Units Cap 1 Cap PO TIDPC Maxzide (Triamterene/HCTZ) 75-50 Mg Tab 1 Tab PO DAILY Losartan (Losartan Potassium) 100 Mg Tab 100 Mg PO DAILY Alprazolam 1 Mg Tab 1 Mg PO HS PRN Levothyroxine (Levothyroxine Sodium) 175 Mcg Tab 175 Mcg PO DAILY Pristiq 24 HR (Desvenlafaxine ER 24 HR) 100 Mg Tab 100 Mg PO DAILY Review of Systems Except as stated in HPI: all other systems reviewed are Neg HENT: Positive: Headaches Musculoskeletal: Positive: Myalgias (trauma to right shoulder area and swelling to the forehead right) Physical Exam Narrative GENERAL: Obese had swelling to the right forehead and SKIN: Warm and dry. HEAD SWELLING AND MILD DISCOLORATION PURPLEISH TO THE RIGHT FOREHEAD OVER THE EYEBROW 6 CM ROUND EYES: Pupils equal and round. No scleral icterus. No injection or drainage. ENT: No nasal bleeding or discharge. Mucous membranes pink and moist. NECK: Trachea midline. No JVD. CARDIOVASCULAR: Regular rate and rhythm. RESPIRATORY: No accessory muscle use. Clear to auscultation. Breath sounds equal bilaterally. GASTROINTESTINAL: Abdomen soft, non-tender, nondistended. Hepatic and splenic margins not palpable. MUSCULOSKELETAL: Extremities right shoulder pain in the humeral head area no obvious injury or swelling. Right shoulder pain as well. Without clubbing, cyanosis, or edema. No obvious deformities. NEUROLOGICAL: Awake and alert. No obvious cranial nerve deficits. Motor grossly within normal limits. Five out of 5 muscle strength in the arms and legs. Normal speech. PSYCHIATRIC: Appropriate mood and affect; insight and judgment normal. Data Data Last Documented VS Orders Orders Ct Brain W/O Iv Contrast(Rout) (08/10/17 ) Shoulder, Complete (>2vws) (08/10/17 ) Elbow, Limited (Ap&Lat) (08/10/17 ) Sling And Swathe (08/11/17 ) Acetamin-Codeine 300-30 Mg (Tylenol-Code (08/11/17 02:00) Ondansetron Odt (Zofran Odt) (08/11/17 02:00) Ed Discharge Order (08/11/17 03:57) Sling And Swathe (08/11/17 ) MDM Medical Decision Making Medical Screen Exam Complete: Yes Emergency Medical Condition: Yes Differential Diagnosis head trauma, intracranial injury traumatic CVA hemorrhagic , contusion closed head injury and shoulder frx , vs elbow fracture vs clavicle fracture, other Narrative Course CT Head no intracranial injury and humerus not fractured however pt has a distal lateral clavicle fracture Awake alert and is safe to return to liveing situation with a sling swath and close ortho follow up Diagnosis Primary Impression: Clavicle fracture Qualified Codes: S42.034A - Nondisplaced fracture of lateral end of right clavicle, initial encounter for closed fracture Additional Impression: Closed head injury Qualified Codes: S09.90XA - Unspecified injury of head, initial encounter Referrals: Ivette Shea MD Patient Instructions: General Instructions, Head Injury (DC) Additional Instructions: Wear the sling for your clavicle fracture until seen by an orthopedist Dr Shea office number included on your papers Scripts Acetaminophen-Codeine (Tylenol-Codeine #3) 300-30 mg Tab 1 TAB PO Q4H Y for PAIN, #20 TAB 0 Refills Prov: Tylor Tony MD 08/11/17 Hydrocodone-Acetaminophen ([place]) 5 Mg-325 Mg Tab 1 TAB PO Q4H Y for PAIN, #12 TAB 0 Refills Prov: Tylor Tony MD 08/11/17 Tylor Tony MD Aug 11, 2017 01:41
[2017-08-11] MEDS ORDERED: ACETAMINOPHEN/CODEINE 300 MG/30 MG TAB PO ONE (02:00)
[2017-08-11] MEDS ORDERED: ONDANSETRON ODT 4 MG TAB PO ONE (02:00)
[2017-08-11] MEDS ORDERED: NORC5TAB PO (03:03)
[2017-08-11 03:06] VITALS: BP 131/87; PULSE 100; RESP 16; O2SAT 99
[2017-08-11 03:10] VITALS: RESP 20
[2017-08-11] MEDS ORDERED: TYLETAB34 PO (06:31)
== END 2017-08-11 06:52 | disposition home or self-care (01) ==
LOC: NEPE 23:04 → NEPD 08-11 06:52
DX: S42.034A Nondisplaced fracture of lateral end of right clavicle, initial encounter for closed fracture (principal); S00.03XA Contusion of scalp, initial encounter; E03.9 Hypothyroidism, unspecified; I10 Essential (primary) hypertension; K21.9 Gastro-esophageal reflux disease without esophagitis; W01.0XXA Fall on same level from slipping, tripping and stumbling without subsequent striking against object, initial encounter; Y93.01 Activity, walking, marching and hiking; Y92.009 Unspecified place in unspecified non-institutional (private) residence as the place of occurrence of the external cause
CPT/HCPCS: 29240; 70450; 73030; 73070

== ENCOUNTER 2017-09-05 11:19 | Inpatient (IN) | payer MEDICARE, BC ==
[~2017-09-05] VITALS: Ht 172.7 cm; Wt 64.6 kg
[2017-09-05] VITALS (8 sets, daily range): BP systolic 169–232; BP diastolic 79–205; PULSE 85–118; RESP 18–44; TEMP 98.3–99.2; O2SAT 97–100
[~2017-09-05 11:19] MED LIST changes: +NORC5TAB PO; +TYLETAB34 PO
[2017-09-05 12:01] LABS: AUTOMATED NEUTROPHIL # 3.8 TH/MM3 (1.8-7.7); BASOPHIL # 0.1 TH/MM3 (0-0.2); BASOPHIL % 1.2 % (0.0-2.0); EOSINOPHIL % 0.5 % (0.0-4.0); HEMATOCRIT 35.1 % (35.0-46.0); HEMOGLOBIN 11.7 GM/DL (11.6-15.3); LYMPH % 22.1 % (9.0-44.0); LYMPHOCYTE # 1.2 TH/MM3 (1.0-4.8); MEAN CELL VOLUME 97.9 FL (80.0-100.0); MEAN CORPUSCULAR HEMOGLOBIN 32.7 PG (27.0-34.0); MEAN CORPUSCULAR HGB CONC 33.4 % (32.0-36.0); MEAN PLATELET VOLUME 6.8 FL (7.0-11.0); MONO % 6.8 % (0.0-8.0); MONOCYTE # 0.4 TH/MM3 (0-0.9); NEUT % 69.4 % (16.0-70.0); PLATELET COUNT 294 TH/MM3 (150-450); RED BLOOD COUNT 3.59 MIL/MM3 (4.00-5.30); WHITE BLOOD COUNT 5.5 TH/MM3 (4.0-11.0)
[2017-09-05 12:22] LABS: CHLORIDE 106 MEQ/L (98-107); SODIUM (NA) 138 MEQ/L (136-145)
[2017-09-05 12:25] LABS: CALCIUM 8.8 MG/DL (8.5-10.1)
[2017-09-05 12:26] LABS: ALBUMIN 3.7 GM/DL (3.4-5.0); BLOOD UREA NITROGEN 15 MG/DL (7-18); GLUCOSE,RANDOM 98 MG/DL (74-106); LIPASE 1013 U/L (73-393)
[2017-09-05 12:29] LABS: ALT (GPT) 21 U/L (10-53); AST (GOT) 30 U/L (15-37); CREATININE 0.87 MG/DL (0.50-1.00); GLOMERULAR FILTRATION RATE 64 ML/MIN (>89)
[2017-09-05 12:31] LABS: TOTAL BILIRUBIN ADULT 0.6 MG/DL (0.2-1.0)
[2017-09-05 12:32] LABS: ALKALINE PHOSPHATASE 102 U/L (45-117)
[2017-09-05] MEDS ORDERED: ONDANSETRON HCL 4 MG/2 ML VIAL IV PUSH ONE (12:45)
[2017-09-05] MEDS ORDERED: SODIUM CHLORID 0.9% 500 ML INJ 500 ML IV ONE (12:45)
[2017-09-05 13:27] LABS: BILIRUBIN, URINE NEG (NEG); GLUCOSE,URINE NEG (NEG); KETONE, URINE NEG (NEG); NITRITE,URINE NEG (NEG); URINE LEUKOCYTE ESTERASE NEG (NEG)
[2017-09-05 13:31] LABS: BLOOD, URINE TRACE (NEG)
[2017-09-05 13:32] LABS: RBC, URINE 0-3 /hpf (0-3); URINE COLOR STRAW (YELLW/STRAW); WBC, URINE 0-2 /hpf (0-5)
[2017-09-05 13:33] LABS: BACTERIA, URINE OCC /hpf; TRANSITIONAL EPI CELLS, URINE 0-5 /hpf
[2017-09-05] MEDS ORDERED: SODIUM CHLOR 0.45% 1000 ML INJ 1,000 ML IV SCH (14:45)
[2017-09-05] MEDS ORDERED: ALPRAZolam 1 MG TAB PO PRN (15:00)
[2017-09-05] MEDS: MULTIVITAMINS/MINERALS THERAPEUTIC TAB PO SCH (15:00)
[2017-09-05] MEDS ORDERED: SODIUM CHLOR 0.9% 1000 ML INJ 1,000 ML IV ONE (15:00)
[2017-09-05] MEDS ORDERED: LORazepam 2 MG/ML VIAL IV PUSH PRN ×4 (15:15)
[2017-09-05] MEDS ORDERED: LORazepam 1 MG TAB PO PRN (15:15)
[2017-09-05] MEDS ORDERED: diphenhydrAMINE HCL 25 MG CAP PO ONE (15:15)
[2017-09-05] MEDS ORDERED: FLUMAZENIL 0.5 MG/5 ML VIAL IV PUSH PRN (15:15)
--- NOTE | 2017-09-05 15:15 | HHI.HP ---
[facility] Service [facility] Primary Care Physician Maxi Branch MD Admission Diagnosis acute pancreatitis Diagnoses: Chief Complaint: vomiting Travel History International Travel<30 Days: No Contact w/Intl Traveler <30 Da: No Traveled to Known Affected Are: No History of Present Illness 72-year-old white female being admitted for intractable nausea vomiting. Patient was in her usual state of health until this morning when she woke up feeling nauseated and began vomiting. She also had some diarrhea. Reports some subjective chills. Denies any bloody emesis or bloody stools. She states that she had some mild abdominal pain. She denies any particular trigger for the nausea and vomiting such as eating a meal. Decided come to the emergency department. She reports having had pancreatitis in the past. She thinks that was from alcohol. Review of Systems Except as stated in HPI: all other systems reviewed are Neg Past Family Social History Past Medical History pancreatitis Past Surgical History appendectomy Allergies: Coded Allergies: Sulfa (Sulfonamide Antibiotics) (Unverified Allergy, Intermediate, rash, ) Family History no family hx of pancreatitis Social History Lives alone; says she receives an aide. reports smoking up until a few years ago. says she drinks alcohol daily about a glass's worth. Physical Exam Vital Signs Vital Signs Date Time Temp Pulse Resp B/P (MAP) Pulse Ox O2 Delivery O2 Flow Rate FiO2 09/05/17 14:36 100 37 171/94 (119) 98 09/05/17 14:01 99.2 102 21 179/89 (119) 98 09/05/17 13:57 09/05/17 13:40 111 18 177/84 (115) 100 Room Air 09/05/17 12:44 99.2 98 18 188/95 (126) 98 Room Air 09/05/17 11:56 97 Room Air 09/05/17 11:55 97 Room Air 09/05/17 11:55 100 18 183/101 (128) 98 Room Air 09/05/17 11:36 98.5 118 20 232/205 (214) 98 Physical Exam VS: afebrile GENERAL: Elderly white female, shaking and tremoring, and shivering SKIN: Warm and dry. EYES: No scleral icterus. No injection or drainage. ENT: No nasal bleeding or discharge. Mucous membranes pink and moist. CARDIOVASCULAR: Regular rate and rhythm. no murmurs RESPIRATORY: No accessory muscle use. Clear to auscultation. Breath sounds equal bilaterally. GASTROINTESTINAL: Abdomen soft, mild diffuse TTP, nondistended. Extremities: No clubbing, cyanosis, or edema. No obvious deformities. MUSCULOSKELETAL: grossly intact ROM with 4/5 strength in upper and lower extremities proximally; adequate muscle bulk and tone for age and habitus. has TTP over BL flanks. NEUROLOGICAL: Awake and alert. No obvious cranial nerve deficits. No facial droop nor slurred speech noted. PSYCHIATRIC: Appears anxious Laboratory Laboratory Tests Test 09/05/17 11:55 09/05/17 13:15 White Blood Count 5.5 Red Blood Count 3.59 Hemoglobin 11.7 Hematocrit 35.1 Mean Corpuscular Volume 97.9 Mean Corpuscular Hemoglobin 32.7 Mean Corpuscular Hemoglobin Concent 33.4 Red Cell Distribution Width 16.0 Platelet Count 294 Mean Platelet Volume 6.8 Neutrophils (%) (Auto) 69.4 Lymphocytes (%) (Auto) 22.1 Monocytes (%) (Auto) 6.8 Eosinophils (%) (Auto) 0.5 Basophils (%) (Auto) 1.2 Neutrophils # (Auto) 3.8 Lymphocytes # (Auto) 1.2 Monocytes # (Auto) 0.4 Eosinophils # (Auto) 0.0 Basophils # (Auto) 0.1 CBC Comment DIFF FINAL Differential Comment Blood Urea Nitrogen 15 Creatinine 0.87 Random Glucose 98 Total Protein 8.0 Albumin 3.7 Calcium Level 8.8 Alkaline Phosphatase 102 Aspartate Amino Transf (AST/SGOT) 30 Alanine Aminotransferase (ALT/SGPT) 21 Total Bilirubin 0.6 Sodium Level 138 Potassium Level 3.4 Chloride Level 106 Carbon Dioxide Level 19.0 Anion Gap 13 Estimat Glomerular Filtration Rate 64 Lipase 1013 Urine Collection Type CATH Urine Color STRAW Urine Turbidity CLEAR Urine pH 6.0 Urine Specific [place] 1.010 Urine Protein 30 Urine Glucose (UA) NEG Urine Ketones NEG Urine Occult Blood TRACE Urine Nitrite NEG Urine Bilirubin NEG Urine Leukocyte Esterase NEG Urine RBC 0-3 Urine WBC 0-2 Urine Squamous Epithelial Cells 6-8 Urine Transitional Epithelial Cells 0-5 Urine Bacteria OCC Microscopic Urinalysis Comment CATH-CULTURE IND Urine Collection Time 13:15 Date/Time Source Procedure Growth Status 09/05/17 12:45 Nasal Washing Influenza Types A,B Antigen (NING) - Final NEGATIVE FOR FLU A AND B ANTIGEN.... Complete 09/05/17 13:15 Urine Clean Catch Urine Culture Pending Received Result Diagram: 09/05/17 1155 09/05/17 1155 Caprini VTE Risk Assessment Caprini VTE Risk Assessment: Mod/High Risk (score >= 2) Caprini Risk Assessment Model Point Value = 1 Point Value = 2 Point Value = 3 Point Value = 5 Age 41-60 Minor surgery BMI > 25 kg/m2 Swollen legs Varicose veins or History of unexplained or recurrent spontaneous Oral contraceptives or hormone replacement Sepsis (< 1 month) Serious lung disease, including pneumonia (< 1 month) Abnormal pulmonary function Acute myocardial infarction Congestive heart failure (< 1 month) History of inflammatory bowel disease Medical patient at bed rest Age 61-74 Arthroscopic surgery Major open surgery (> 45 min) Laparoscopic surgery (> 45 min) Malignancy Confined to bed (> 72 hours) Immobilizing plaster cast Central venous access Age >= 75 History of VTE Family history of VTE Factor V Leiden Prothrombin [id number] Lupus anticoagulant Anticardiolipin antibodies Elevated serum homocysteine Heparin-induced thrombocytopenia Other congenital or acquired thrombophilia Stroke (< 1 month) Elective arthroplasty Hip, pelvis, or leg fracture Acute spinal cord injury (< 1 month) Prophylaxis Regimen Total Risk Factor Score Risk Level Prophylaxis Regimen 0-1 Low Early ambulation 2 Moderate Order ONE of the following: *Sequential Compression Device (SCD) *Heparin 5000 units SQ BID 3-4 Higher Order ONE of the following medications: *Heparin 5000 units SQ TID *Enoxaparin/Lovenox 40 mg SQ daily (WT < 150 kg, CrCl > 30 mL/min) *Enoxaparin/Lovenox 30 mg SQ daily (WT < 150 kg, CrCl > 10-29 mL/min) *Enoxaparin/Lovenox 30 mg SQ BID (WT < 150 kg, CrCl > 30 mL/min) AND/OR *Sequential Compression Device (SCD) 5 or more Highest Order ONE of the following medications: *Heparin 5000 units SQ TID (Preferred with Epidurals) *Enoxaparin/Lovenox 40 mg SQ daily (WT < 150 kg, CrCl > 30 mL/min) *Enoxaparin/Lovenox 30 mg SQ daily (WT < 150 kg, CrCl > 10-29 mL/min) *Enoxaparin/Lovenox 30 mg SQ BID (WT < 150 kg, CrCl > 30 mL/min) AND *Sequential Compression Device (SCD) Assessment and Plan Assessment and Plan Intractable nausea vomiting - More likely acute gastroenteritis over pancreatitis - IV fluids with antiemetics. Lipase is not that significantly impressive, may be mild pancreatitis at best - If symptoms do not improve will consider CT abdomen and or gallbladder ultrasound - flu negative - UDS to r/o THC induced vomiting - my personal interpretation is that UA is wnl - We'll make patient nothing by mouth for now, clear liquids as tolerated tomorrow - po protonix anxiety - continue home meds including Xanax HTN - Triamterene hydrochlorothiazide and losartan hypothyroidism - Continue home Synthroid. Physician Certification 2 Midnight Certification Type: Admission for Inpatient Services Order for Inpatient Services The services are ordered in accordance with Medicare regulations or non- Medicare payer requirements, as applicable. In the case of services not specified as inpatient-only, they are appropriately provided as inpatient services in accordance with the 2-midnight benchmark. Estimated LOS (days): 2 2 days is the estimated time the patient will need to remain in the hospital, assuming treatment plan goals are met and no additional complications. Post-Hospital Plan: Home Edgard Price MD Sep 05, 2017 15:15
[2017-09-05] MEDS: LORazepam 2 MG TAB PO PRN ×2 (15:28→20:54)
[2017-09-05] MEDS: SODIUM CHLOR 0.9% 1000 ML INJ 1,000 ML IV SCH (15:32)
[2017-09-05] MEDS ORDERED: ONDANSETRON HCL 4 MG/2 ML VIAL IV PUSH PRN (17:30)
[2017-09-05] MEDS ORDERED: PROMETHAZINE INJ 25 MG/ML VIAL IM PRN (17:30)
[2017-09-05] MEDS ORDERED: IBUP200C PO (17:52)
[2017-09-05] MEDS: LIPASE/PROTEASE/AMYLASE (6,000/19,000/30,000) CAP PO SCH (18:30)
[2017-09-05] MEDS ORDERED: ACETAMINOPHEN/HYDROcodone 325 MG/5 MG TAB PO PRN (19:00)
[2017-09-05] MEDS: HEPARIN SODIUM - SQ 10,000 UNITS/ML VIAL SQ SCH (20:54)
[2017-09-06] VITALS: BP 141/87; PULSE 69; RESP 14; TEMP 97.8; O2SAT 97
[2017-09-06] MEDS: SODIUM CHLOR 0.9% 1000 ML INJ 1,000 ML IV SCH (03:38)
[2017-09-06 05:00] VITALS: BP 159/93; PULSE 76; RESP 22; TEMP 98.4; O2SAT 93
[2017-09-06] MEDS ORDERED: LEVOTHYROXINE SODIUM 25 MCG TAB PO SCH (06:00)
[2017-09-06] MEDS ORDERED: LEVOTHYROXINE SODIUM 150 MCG TAB PO SCH (06:00)
[2017-09-06] MEDS: HEPARIN SODIUM - SQ 10,000 UNITS/ML VIAL SQ SCH (06:11)
[2017-09-06 06:38] LABS: BICARBONATE 22.4 MEQ/L (21.0-32.0); CALCIUM 8.2 MG/DL (8.5-10.1); CREATININE 0.67 MG/DL (0.50-1.00)
[2017-09-06 07:00] VITALS: BP 171/82; PULSE 74; RESP 25; TEMP 98.5; O2SAT 94
[2017-09-06 09:00] VITALS: BP 171/82; PULSE 78; RESP 23
[2017-09-06] MEDS ORDERED: LOSARTAN 50 MG TAB PO SCH (09:00)
[2017-09-06] MEDS ORDERED: PANTOPRAZOLE SOD 40 MG DELAYED RELEASE TAB PO SCH (09:00)
[2017-09-06] MEDS ORDERED: TRIAMTERENE/HCTZ 75 MG/50 MG TAB PO SCH (09:00)
[2017-09-06] MEDS ORDERED: DESVENLAFAXINE 100 MG PO SCH (09:00)
[2017-09-06] MEDS: MULTIVITAMINS/MINERALS THERAPEUTIC TAB PO SCH (09:05)
[2017-09-06] MEDS ORDERED: TRIAMTERENE/HCTZ 37.5 MG/25 MG TAB PO SCH (09:15)
[2017-09-06] MEDS ORDERED: diphenhydrAMINE HCL 25 MG CAP PO ONE (10:30)
[2017-09-06] MEDS ORDERED: POTASSIUM CHLORIDE 10 MEQ CONTROLLED RELEASE TAB PO ONE (10:30)
[2017-09-06] MEDS: LIPASE/PROTEASE/AMYLASE (6,000/19,000/30,000) CAP PO SCH (11:44)
[2017-09-06 12:00] VITALS: BP 177/78; PULSE 72; RESP 20; TEMP 98.3; O2SAT 98
[2017-09-06 12:14] VITALS: BP 161/99; PULSE 70; RESP 31; O2SAT 97
--- NOTE | 2017-09-06 13:07 | HHI.DCPOC ---
Discharge Care Plan Diagnosis: (1) Acute recurrent pancreatitis (2) Acute gastroenteritis Additional Problems Follow up with your primary care provider to recheck your potassium levels. Goals to Promote Your Health * To prevent worsening of your condition and complications * To maintain your health at the optimal level Directions to Meet Your Goals Take your medications as prescribed Follow your dietary instruction Follow activity as directed Keep your appointments as scheduled Take your immunizations and boosters as scheduled If your symptoms worsen call your PCP, if no PCP go to Urgent Care Center or Emergency Room Smoking is Dangerous to Your Health. Avoid second hand smoke Call the 24-hour hour crisis hotline for domestic abuse at Edgard Price MD Sep 06, 2017 13:07
[2017-09-06] MEDS ORDERED: KLOR20TA3 PO (13:10)
--- NOTE | 2017-09-06 13:13 | HHI.PR ---
Subjective Remarks Nursing denies any deterioration since last night. Patient her.self says she feels much better. Tolerated by mouth intake well. says that diarrhea has stopped. Objective Vital Signs Date Time Temp Pulse Resp B/P (MAP) Pulse Ox O2 Delivery O2 Flow Rate FiO2 09/06/17 12:14 70 31 161/99 (119) 97 09/06/17 12:00 98.3 72 20 177/78 (111) 98 09/06/17 09:00 78 23 171/82 (111) 09/06/17 07:00 98.5 74 25 171/82 (111) 94 09/06/17 05:00 98.4 76 22 159/93 (115) 93 09/06/17 00:00 97.8 69 14 141/87 (105) 97 09/05/17 21:54 16 09/05/17 20:00 98.3 85 25 170/79 (109) 97 09/05/17 16:00 98.8 92 44 169/91 (117) 09/05/17 14:36 100 37 171/94 (119) 98 09/05/17 14:01 99.2 102 21 179/89 (119) 98 09/05/17 13:57 09/05/17 13:40 111 18 177/84 (115) 100 Room Air I/O 09/05/17 09/05/17 09/05/17 09/06/17 09/06/17 09/06/17 07:00 15:00 23:00 07:00 15:00 23:00 Intake Total 500 ml 332 ml 1240 ml Output Total 330 ml 550 ml Balance 500 ml 2 ml 690 ml Intake Oral 240 ml IV Total 500 ml 332 ml 1000 ml Output Urine Total 330 ml 550 ml # Voids 2 # Bowel Movements 0 Result Diagram: 09/05/17 1155 09/06/17 0420 Objective Remarks Lying in bed, no acute distress Abdomen is nondistended Unlabored respiratory effort, clear lungs bilaterally A/P Assessment and Plan Intractable nausea vomiting - Resolved. Could have been either pancreatitis versus gastritis. Diarrhea has also resolved. Tolerating by mouth intake well this morning UA is negative. anxiety - continue home meds including Xanax HTN - Triamterene hydrochlorothiazide and losartan hypothyroidism - Continue home Synthroid mild hypokalemia - replaced orally and will write for script. Patient has met maximal benefit from hospitalization and is clinically stable for discharge. She was advised to follow with the primary care provider to have her potassium levels rechecked. She is advised to refrain from NSAIDs for the time being and just take her prescribed pain medications. Edgard Price MD Sep 06, 2017 13:13
--- NOTE | 2017-09-09 11:09 | PD ---
HPI Chief Complaint: GI Complaint Time Seen by Provider: 12:00 Travel History International Travel<30 days: No Contact w/Intl Traveler<30days: No Traveled to known affect area: No History of Present Illness HPI Patient originally seen by me on 09/05/17. Patient is a 72-year-old female patient with previous history of pancreatitis, presents to the ER today for nausea, vomiting, diarrhea starting this morning. She denies any fevers, has had some chills, has had some abdominal pain. Symptoms seems to have worsened after eating a meal. Pain was reported at a 9 out of 10. PFSH Past Medical History Hx Anticoagulant Therapy: Yes Arthritis: Yes Asthma: No Autoimmune Disease: Yes (RA) Blood Disorders: No Anxiety: Yes Depression: Yes Heart Rhythm Problems: No Cancer: Yes (LEFT BREAST CA) Cardiovascular Problems: Yes High Cholesterol: No Chemotherapy: No Chest Pain: No Congestive Heart Failure: No COPD: No Cerebrovascular Accident: Yes (2016) Coronary Artery Disease: Yes Diabetes: No Diminished Hearing: Yes Endocrine: Yes (CHRONIC PANCREATITIS) Gastrointestinal Disorders: Yes (GASTRIC ULCERS) GERD: Yes Genitourinary: No Headaches: Yes Hiatal Hernia: No Heparin Induced Thrombocytopen: No Hypertension: Yes Immune Disorder: Yes Implanted Vascular Access Dvce: No Kidney Stones: No Medical other: Yes (FLUID RETENTION-ACID REFLUX) Musculoskeletal: Yes Neurologic: Yes Psychiatric: Yes Reproductive: No Respiratory: No Immunizations Current: Yes Migraines: Yes Pancreatitis: Yes Radiation Therapy: Yes Renal Failure: No Seizures: Yes Sickle Cell Disease: No Sleep Apnea: No Thyroid Disease: Yes (HYPOTHYROID) Ulcer: Yes Influenza Vaccination: Yes ?: Not Menopausal: Yes : 2 Para: 1 Miscarriage: 1 Past Surgical History Abdominal Surgery: Yes (HYSTERECTOMY) AICD: No Appendectomy: Yes Arteriovenous Shunt: No Body Medical Devices: L hip hardware in place , PT IS NOT SURE Cardiac Surgery: No Cholecystectomy: Yes Ear Surgery: No Endocrine Surgery: No Eye Surgery: No Genitourinary Surgery: No Gynecologic Surgery: Yes (TOTAL HYSTERECTOMY) Hysterectomy: Yes Insulin Pump: No Joint Replacement: No Neurologic Surgery: No Oral Surgery: No Pacemaker: No Thoracic Surgery: No Other Surgery: Yes (COLDWELL/SINUS REPAIR, LEFT LUMPECTOMY) Social History Alcohol Use: Yes (DAILY LIQUOR/WINE USE) Tobacco Use: No Substance Use: No Allergies-Medications (Allergen,Severity, Reaction): Coded Allergies: Sulfa (Sulfonamide Antibiotics) (Unverified Allergy, Intermediate, rash, ) Reported Meds & Prescriptions Reported Meds & Active Scripts Active Hydrocodone-Acetaminophen 5-325 mg Tab 1 Tab PO Q6H PRN Thera/Beta-Carotene (Multiple Vitamin) 1 Tab Tab 1 Tab PO DAILY Nexium (Esomeprazole DR) 40 Mg Capdr 40 Mg PO DAILY Reported Creon (Pancrelipase) 3,000-9,500-15,000 Units Cap 1 Cap PO TIDPC Maxzide (Triamterene/HCTZ) 75-50 Mg Tab 1 Tab PO DAILY Losartan (Losartan Potassium) 100 Mg Tab 100 Mg PO DAILY Alprazolam 1 Mg Tab 1 Mg PO HS PRN Levothyroxine (Levothyroxine Sodium) 175 Mcg Tab 175 Mcg PO DAILY Pristiq 24 HR (Desvenlafaxine ER 24 HR) 100 Mg Tab 100 Mg PO DAILY Review of Systems Except as stated in HPI: all other systems reviewed are Neg Physical Exam Narrative GENERAL: Well-developed elderly female patient currently in moderate distress. Awake and oriented 3. SKIN: Focused skin assessment warm/dry. HEAD: Atraumatic. Normocephalic. EYES: Pupils equal and round. No scleral icterus. No injection or drainage. ENT: No nasal bleeding or discharge. Mucous membranes pink and moist. NECK: Trachea midline. No JVD. Supple. CARDIOVASCULAR: Regular rate and rhythm. No murmur appreciated. RESPIRATORY: No accessory muscle use. Clear to auscultation. Breath sounds equal bilaterally. GASTROINTESTINAL: Abdomen soft, upper abdominal tenderness without guarding or rebound, nondistended. Hepatic and splenic margins not palpable. MUSCULOSKELETAL: No obvious deformities. No clubbing. No cyanosis. No edema. NEUROLOGICAL: Awake and alert. No obvious cranial nerve deficits. Motor grossly within normal limits. Normal speech. PSYCHIATRIC: Appropriate mood and affect; insight and judgment normal. Data Data Last Documented VS Vital Signs Date Time Temp Pulse Resp B/P (MAP) Pulse Ox O2 Delivery O2 Flow Rate FiO2 09/05/17 12:44 99.2 98 18 188/95 (126) 98 Room Air Orders Orders Complete Blood Count With Diff (09/05/17 11:54) Comprehensive Metabolic Panel (09/05/17 11:54) Urinalysis - C+S If Indicated (09/05/17 11:54) Iv Access Insert/Monitor (09/05/17 11:54) Oxygen Administration (09/05/17 11:54) Oximetry (09/05/17 11:54) Lipase (09/05/17 11:54) Influenzae A/B Antigen (09/05/17 12:31) Sodium Chlorid 0.9% 500 Ml Inj (Ns 500 M (09/05/17 12:45) Ondansetron Inj (Zofran Inj) (09/05/17 12:45) Admit Order (Ed Use Only) (09/05/17 13:05) Labs Laboratory Tests Test 09/05/17 11:55 White Blood Count 5.5 TH/MM3 Red Blood Count 3.59 MIL/MM3 Hemoglobin 11.7 GM/DL Hematocrit 35.1 % Mean Corpuscular Volume 97.9 FL Mean Corpuscular Hemoglobin 32.7 PG Mean Corpuscular Hemoglobin Concent 33.4 % Red Cell Distribution Width 16.0 % Platelet Count 294 TH/MM3 Mean Platelet Volume 6.8 FL Neutrophils (%) (Auto) 69.4 % Lymphocytes (%) (Auto) 22.1 % Monocytes (%) (Auto) 6.8 % Eosinophils (%) (Auto) 0.5 % Basophils (%) (Auto) 1.2 % Neutrophils # (Auto) 3.8 TH/MM3 Lymphocytes # (Auto) 1.2 TH/MM3 Monocytes # (Auto) 0.4 TH/MM3 Eosinophils # (Auto) 0.0 TH/MM3 Basophils # (Auto) 0.1 TH/MM3 CBC Comment DIFF FINAL Differential Comment Blood Urea Nitrogen 15 MG/DL Creatinine 0.87 MG/DL Random Glucose 98 MG/DL Total Protein 8.0 GM/DL Albumin 3.7 GM/DL Calcium Level 8.8 MG/DL Alkaline Phosphatase 102 U/L Aspartate Amino Transf (AST/SGOT) 30 U/L Alanine Aminotransferase (ALT/SGPT) 21 U/L Total Bilirubin 0.6 MG/DL Sodium Level 138 MEQ/L Potassium Level 3.4 MEQ/L Chloride Level 106 MEQ/L Carbon Dioxide Level 19.0 MEQ/L Anion Gap 13 MEQ/L Estimat Glomerular Filtration Rate 64 ML/MIN Lipase 1013 U/L Ethyl Alcohol Level LESS THAN 3 MG/DL MDM Medical Decision Making Medical Screen Exam Complete: Yes Emergency Medical Condition: Yes Medical Record Reviewed: Yes Differential Diagnosis Gastritis versus gastroenteritis versus dehydration versus pancreatitis versus acute abdominal processes Narrative Course Lab work shows significant lipase elevation concerning for underlying pancreatitis. Case was discussed with Dr. Price for admission for pancreatitis. Patient was given IV fluids, pain medication, and Zofran in the ER. Diagnosis Primary Impression: Acute recurrent pancreatitis Admitting Information Admitting Physician Requests: Admit Scripts Potassium Chloride Microencaps (Klor-Con M20) 20 Meq Tab 20 MEQ PO DAILY for Electrolyte Replacement, #30 TAB 0 Refills Prov: Edgard Price MD 09/06/17 Gracia Tomas MD Sep 09, 2017 11:09
== END 2017-09-06 15:16 | disposition home or self-care (01) | DRG 391 ==
LOC: PHED 11:19 → PHEDA 13:06 → PHICU 13:52
PROVIDERS: ADMIT Hospitalist; ATTEND Hospitalist
DX: K52.9 Noninfective gastroenteritis and colitis, unspecified (principal); K85.90 Acute pancreatitis without necrosis or infection, unspecified; K86.1 Other chronic pancreatitis; I10 Essential (primary) hypertension; E03.9 Hypothyroidism, unspecified; F41.9 Anxiety disorder, unspecified; M19.90 Unspecified osteoarthritis, unspecified site; H91.90 Unspecified hearing loss, unspecified ear; K21.9 Gastro-esophageal reflux disease without esophagitis; E87.6 Hypokalemia; Z87.891 Personal history of nicotine dependence; Z85.3 Personal history of malignant neoplasm of breast; F32.9 Major depressive disorder, single episode, unspecified
CPT/HCPCS: 80048; 80053; 80307; 81001; 83690; 85025; 87086; 87804; J1644; J2060; J2405; J7030; J7040

== ENCOUNTER 2017-09-09 10:55 | Emergency (ER) | payer BC, MEDICARE ==
[~2017-09-09] VITALS: Ht 165.1 cm; Wt 64.1 kg
[~2017-09-09 10:55] MED LIST changes: -ACET300T49 PO; +KLOR20TA3 PO; -MACR100C2 PO; -NORC5TAB PO; -TYLETAB34 PO; -VENL75XR PO
[2017-09-09 10:57] VITALS: BP 169/88; PULSE 109; RESP 17; TEMP 98.1; O2SAT 97
[2017-09-09] MEDS ORDERED: SODIUM CHLOR 0.9% 1000 ML INJ 1,000 ML IV SCH (11:19)
[2017-09-09 11:20] VITALS: BP 147/94; PULSE 107; RESP 18; O2SAT 98
[2017-09-09 11:22] VITALS: O2SAT 98
--- NOTE | 2017-09-09 11:29 | PD ---
HPI Chief Complaint: Abdominal Pain Time Seen by Provider: 11:15 Travel History International Travel<30 days: No Contact w/Intl Traveler<30days: No Traveled to known affect area: No History of Present Illness HPI 3 days c/o diffuse abd pain, non rad, 4/10 in severity, no alleviating factors, ...aggravated by drinking or eating....patient does admit to etoh use but last drink over 12 hrs ago because of n/v.....denies assoc factors of fever/cp/sandy/ tremors/hallucinations/seizure...patient also has home health aid who corroborated [facility] Past Medical History Hx Anticoagulant Therapy: Yes Arthritis: Yes Asthma: No Autoimmune Disease: Yes (RA) Blood Disorders: No Anxiety: Yes Depression: Yes Heart Rhythm Problems: No Cancer: Yes (LEFT BREAST CA) Cardiovascular Problems: Yes High Cholesterol: No Chemotherapy: No Chest Pain: No Congestive Heart Failure: No COPD: No Cerebrovascular Accident: Yes (2016) Coronary Artery Disease: Yes Diabetes: No Diminished Hearing: Yes Endocrine: Yes (CHRONIC PANCREATITIS) Gastrointestinal Disorders: Yes (GASTRIC ULCERS) GERD: Yes Genitourinary: No Headaches: Yes Hiatal Hernia: No Heparin Induced Thrombocytopen: No Hypertension: Yes Immune Disorder: Yes Implanted Vascular Access Dvce: No Kidney Stones: No Medical other: Yes (FLUID RETENTION-ACID REFLUX) Musculoskeletal: Yes Neurologic: Yes Psychiatric: Yes Reproductive: No Respiratory: No Immunizations Current: Yes Migraines: Yes Pancreatitis: Yes Radiation Therapy: Yes Renal Failure: No Seizures: Yes Sickle Cell Disease: No Sleep Apnea: No Thyroid Disease: Yes (HYPOTHYROID) Ulcer: Yes Influenza Vaccination: Yes ?: Not Menopausal: Yes : 2 Para: 1 Miscarriage: 1 Past Surgical History Abdominal Surgery: Yes (HYSTERECTOMY) AICD: No Appendectomy: Yes Arteriovenous Shunt: No Body Medical Devices: L hip hardware in place , PT IS NOT SURE Cardiac Surgery: No Cholecystectomy: Yes Ear Surgery: No Endocrine Surgery: No Eye Surgery: No Genitourinary Surgery: No Gynecologic Surgery: Yes (TOTAL HYSTERECTOMY) Hysterectomy: Yes Insulin Pump: No Joint Replacement: No Neurologic Surgery: No Oral Surgery: No Pacemaker: No Thoracic Surgery: No Other Surgery: Yes (COLDWELL/SINUS REPAIR, LEFT LUMPECTOMY) Social History Alcohol Use: Yes (DAILY LIQUOR/WINE USE) Tobacco Use: No Substance Use: No Allergies-Medications (Allergen,Severity, Reaction): Coded Allergies: Sulfa (Sulfonamide Antibiotics) (Unverified Allergy, Intermediate, rash, ) Reported Meds & Prescriptions Reported Meds & Active Scripts Active [place] (Hydrocodone-Acetaminophen) 10-325 Mg Tab 1 Tab PO Q6H PRN Zofran Odt (Ondansetron Odt) 4 Mg Tab 4 Mg SL Q6HR PRN Klor-Con M20 (Potassium Chloride Microencaps) 20 Meq Tab 20 Meq PO DAILY Hydrocodone-Acetaminophen 5-325 mg Tab 1 Tab PO Q6H PRN Thera/Beta-Carotene (Multiple Vitamin) 1 Tab Tab 1 Tab PO DAILY Nexium (Esomeprazole DR) 40 Mg Capdr 40 Mg PO DAILY Reported Creon (Pancrelipase) 3,000-9,500-15,000 Units Cap 1 Cap PO TIDPC Maxzide (Triamterene/HCTZ) 75-50 Mg Tab 1 Tab PO DAILY Losartan (Losartan Potassium) 100 Mg Tab 100 Mg PO DAILY Alprazolam 1 Mg Tab 1 Mg PO HS PRN Levothyroxine (Levothyroxine Sodium) 175 Mcg Tab 175 Mcg PO DAILY Pristiq 24 HR (Desvenlafaxine ER 24 HR) 100 Mg Tab 100 Mg PO DAILY Review of Systems Except as stated in HPI: all other systems reviewed are Neg General / Constitutional: No: Fever Eyes: No: Visual changes HENT: No: Headaches Cardiovascular: No: Chest Pain or Discomfort Respiratory: No: Shortness of Breath Gastrointestinal: Positive: Nausea, Vomiting, Diarrhea, Abdominal Pain Genitourinary: No: Dysuria Musculoskeletal: No: Pain Skin: No Rash Neurologic: No: Weakness Psychiatric: No: Depression Endocrine: No: Polydipsia Hematologic/Lymphatic: No: Easy Bruising Physical Exam Narrative GENERAL: elderly white female in mild distress SKIN: Warm and dry. HEAD: Atraumatic. Normocephalic. EYES: Pupils equal and round. No scleral icterus. No injection or drainage. ENT: No nasal bleeding or discharge. Mucous membranes pink and moist. NECK: Trachea midline. No JVD. CARDIOVASCULAR: Regular rate and rhythm. RESPIRATORY: No accessory muscle use. Clear to auscultation. Breath sounds equal bilaterally. GASTROINTESTINAL: Abdomen soft, diffusely tt percussion throughout, no rigidity , no guarding, no rebound... nondistended. MUSCULOSKELETAL: Extremities without clubbing, cyanosis, or edema. No obvious deformities. NEUROLOGICAL: Awake and alert. No obvious cranial nerve deficits. Motor grossly within normal limits. Five out of 5 muscle strength in the arms and legs. Normal speech. PSYCHIATRIC: Appropriate mood and affect; insight and judgment normal. Data Data Last Documented VS Vital Signs Date Time Temp Pulse Resp B/P (MAP) Pulse Ox O2 Delivery O2 Flow Rate FiO2 09/09/17 13:47 102 18 164/79 (107) 98 Room Air 09/09/17 10:57 98.1 Orders Orders Complete Blood Count With Diff (09/09/17 11:19) Comprehensive Metabolic Panel (09/09/17 11:19) Lipase (09/09/17 11:19) Prothrombin Time / Inr (Pt) (09/09/17 11:19) Act Partial Throm Time (Ptt) (09/09/17 11:19) Urinalysis - C+S If Indicated (09/09/17 11:19) Ct Abd/Pel W/O Iv Contrast (09/09/17 11:19) Iv Access Insert/Monitor (09/09/17 11:19) Ecg Monitoring (09/09/17 11:19) Oximetry (09/09/17 11:19) NPO (09/09/17 11:19) Morphine Inj (Morphine Inj) (09/09/17 11:30) Ondansetron Inj (Zofran Inj) (09/09/17 11:30) Sodium Chlor 0.9% 1000 Ml Inj (Ns 1000 M (09/09/17 11:19) Alcohol (Ethanol) (09/09/17 11:29) Ondansetron Inj (Zofran Inj) (09/09/17 12:30) Ed Discharge Order (09/09/17 13:39) Labs Laboratory Tests Test 09/09/17 11:25 09/09/17 13:25 White Blood Count 5.1 TH/MM3 Red Blood Count 3.88 MIL/MM3 Hemoglobin 12.5 GM/DL Hematocrit 38.0 % Mean Corpuscular Volume 97.9 FL Mean Corpuscular Hemoglobin 32.3 PG Mean Corpuscular Hemoglobin Concent 33.0 % Red Cell Distribution Width 16.2 % Platelet Count 324 TH/MM3 Mean Platelet Volume 7.1 FL Neutrophils (%) (Auto) 66.0 % Lymphocytes (%) (Auto) 23.6 % Monocytes (%) (Auto) 8.8 % Eosinophils (%) (Auto) 0.5 % Basophils (%) (Auto) 1.1 % Neutrophils # (Auto) 3.4 TH/MM3 Lymphocytes # (Auto) 1.2 TH/MM3 Monocytes # (Auto) 0.4 TH/MM3 Eosinophils # (Auto) 0.0 TH/MM3 Basophils # (Auto) 0.1 TH/MM3 CBC Comment DIFF FINAL Differential Comment Prothrombin Time 10.7 SEC Prothromb Time International Ratio 1.1 RATIO Activated Partial Thromboplast Time 28.1 SEC Blood Urea Nitrogen 10 MG/DL Creatinine 0.89 MG/DL Random Glucose 99 MG/DL Total Protein 8.0 GM/DL Albumin 3.6 GM/DL Calcium Level 8.4 MG/DL Alkaline Phosphatase 100 U/L Aspartate Amino Transf (AST/SGOT) 27 U/L Alanine Aminotransferase (ALT/SGPT) 21 U/L Total Bilirubin 0.5 MG/DL Sodium Level 134 MEQ/L Potassium Level 3.6 MEQ/L Chloride Level 100 MEQ/L Carbon Dioxide Level 19.1 MEQ/L Anion Gap 15 MEQ/L Estimat Glomerular Filtration Rate 63 ML/MIN Lipase 1442 U/L Ethyl Alcohol Level 8 MG/DL Urine Collection Type CLEAN CATCH Urine Color YELLOW Urine Turbidity CLEAR Urine pH 5.5 Urine Specific [place] 1.012 Urine Protein TRACE mg/dL Urine Glucose (UA) NEG mg/dL Urine Ketones NEG mg/dL Urine Occult Blood TRACE Urine Nitrite NEG Urine Bilirubin NEG Urine Leukocyte Esterase NEG Urine RBC 0-3 /hpf Urine Squamous Epithelial Cells > 8 /hpf Urine Bacteria FEW /hpf Microscopic Urinalysis Comment CULT NOT INDICATED Urine Collection Time 13:25 MDM Medical Decision Making Medical Screen Exam Complete: Yes Emergency Medical Condition: Yes Medical Record Reviewed: Yes Interpretation(s) mild sinus tach 101, nl intervals, motion artifact, no stemi pattern noted Differential Diagnosis gastroenteritis v pancreatitis v electrolyte abnl Narrative Course patient's ct and labs consistent with mild pancreatitis, normal electrolytes and most importantly after iv hydration patient tolerated po challenge well. Diagnosis Primary Impression: mild acute pancreatitis on chronic pancreatitis Patient Instructions: Full Liquid Diet (GEN), General Instructions, Pancreatitis (ED) Scripts Hydrocodone-Acetaminophen ([place]) 10-325 Mg Tab 1 TAB PO Q6H Y for PAIN, #14 TAB 0 Refills Prov: Von Dimas MD 09/09/17 Ondansetron Odt (Zofran Odt) 4 Mg Tab 4 MG SL Q6HR Y for Nausea/Vomiting, #30 TAB 0 Refills Prov: Von Dimas MD 09/09/17 Disposition: 01 DISCHARGE HOME Condition: Stable Von Dimas MD Sep 09, 2017 11:29
[2017-09-09] MEDS ORDERED: ONDANSETRON HCL 4 MG/2 ML VIAL IVP ONE ×2 (11:30→12:30)
[2017-09-09] MEDS ORDERED: MORPHINE SULFATE 4 MG/ML INJ IV PUSH ONE (11:30)
[2017-09-09 11:41] LABS: AUTOMATED NEUTROPHIL # 3.4 TH/MM3 (1.8-7.7); BASOPHIL # 0.1 TH/MM3 (0-0.2); BASOPHIL % 1.1 % (0.0-2.0); EOSINOPHIL % 0.5 % (0.0-4.0); HEMOGLOBIN 12.5 GM/DL (11.6-15.3); LYMPH % 23.6 % (9.0-44.0); LYMPHOCYTE # 1.2 TH/MM3 (1.0-4.8); MEAN CELL VOLUME 97.9 FL (80.0-100.0); MEAN CORPUSCULAR HEMOGLOBIN 32.3 PG (27.0-34.0); MEAN PLATELET VOLUME 7.1 FL (7.0-11.0); MONO % 8.8 % (0.0-8.0); MONOCYTE # 0.4 TH/MM3 (0-0.9); PLATELET COUNT 324 TH/MM3 (150-450); RED BLOOD COUNT 3.88 MIL/MM3 (4.00-5.30); RED CELL DISTRIBUTION WIDTH 16.2 % (11.6-17.2); WHITE BLOOD COUNT 5.1 TH/MM3 (4.0-11.0)
[2017-09-09 11:58] LABS: ALBUMIN 3.6 GM/DL (3.4-5.0); ALKALINE PHOSPHATASE 100 U/L (45-117); ALT (GPT) 21 U/L (10-53); AST (GOT) 27 U/L (15-37); BICARBONATE 19.1 MEQ/L (21.0-32.0); BLOOD UREA NITROGEN 10 MG/DL (7-18); CALCIUM 8.4 MG/DL (8.5-10.1); CHLORIDE 100 MEQ/L (98-107); CREATININE 0.89 MG/DL (0.50-1.00); GLOMERULAR FILTRATION RATE 63 ML/MIN (>89); GLUCOSE,RANDOM 99 MG/DL (74-106); LIPASE 1442 U/L (73-393); SODIUM (NA) 134 MEQ/L (136-145); TOTAL BILIRUBIN ADULT 0.5 MG/DL (0.2-1.0)
[2017-09-09 12:06] LABS: INTERNATIONAL NORMALIZED RATIO 1.1 RATIO; PROTHROMBIN TIME - PATIENT 10.7 SEC (9.8-11.6)
--- NOTE | 2017-09-09 12:09 | RADRPT ---
EXAM DATE/TIME: 09/09/2017 11:34 [place] COMPARISON: CT ABDOMEN & PELVIS W CONTRAST, July 04, 2017, 18:02. CT ABDOMEN & PELVIS W/O CONTRAST, Ekaterina 2016, 8:33. INDICATIONS : Vomiting diarrhea, recent fall. ORAL CONTRAST: No oral contrast ingested. RADIATION DOSE: 9.75 CTDIvol (mGy) MEDICAL HISTORY : Hypothyroidism. Cerebrovascular disease. Seizures.GERD,Pancreatitis, elevated LFTS SURGICAL HISTORY : Appendectomy. Cholecystectomy.Hysterectomy. ENCOUNTER: Initial ACUITY: 2 days PAIN SCALE: 7/10 LOCATION: abdominal TECHNIQUE: Volumetric scanning of the abdomen and pelvis was performed. Using automated exposure control and ad justment of the mA and/or kV according to patient size, radiation dose was kept as low as reasonably achievable to obtain optimal diagnostic quality images. DICOM format image data is available electro nically for review and comparison. FINDINGS: LOWER LUNGS: The visualized lower lungs are clear. LIVER: Small calcified gallstone at the third portion of the gallbladder. No live-cholecystic inflammatory c hanges. Liver unchanged with several scattered cysts. SPLEEN: Calcified granulomas in spleen. PANCREAS: Numerous pancreatic calcifications again seen. There is persistent fullness of the pancreatic head an d peripancreatic stranding/face opacity indicating chronic pancreatitis and possible mild acute pancr eatitis. Findings are less prominent than on the comparison study of June 2017. KIDNEYS: Bilateral renal cysts are again seen, better demonstrated on prior study with contrast. No evidence o f hydronephrosis or calculi. ADRENAL GLANDS: Within normal limits. VASCULAR: There is no aortic aneurysm. BOWEL/MESENTERY: Scattered colonic diverticula. No evidence of acute diverticulitis. Appendix not identified. No bowel dilatation. No free air or free fluid. ABDOMINAL WALL: Within normal limits. RETROPERITONEUM: There is no lymphadenopathy. BLADDER: Distended. REPRODUCTIVE: Within normal limits. INGUINAL: There is no lymphadenopathy or hernia. MUSCULOSKELETAL: Degenerative Findings lumbar spine. Left-sided screw. CONCLUSION: 1. Chronic pancreatitis and possible superimposed mild acute pancreatitis. Findings less prominent th an on the comparison study of June 2017. 2. Cholelithiasis. 3. Old granulomatous disease. Anil Bo MD on September 09, 2017 at 12:00 Board Certified Radiologist. This report was verified electronically.
[2017-09-09] MEDS ORDERED: ZOFR4TAB3 SL (12:22)
[2017-09-09] MEDS ORDERED: HYDR-3366 PO (12:22)
[2017-09-09 13:16] VITALS: BP 176/74; PULSE 110; RESP 18; O2SAT 100
[2017-09-09 13:36] LABS: BILIRUBIN, URINE NEG (NEG); BLOOD, URINE TRACE (NEG); GLUCOSE,URINE NEG (NEG); KETONE, URINE NEG (NEG); NITRITE,URINE NEG (NEG); PH, URINE 5.5 (5.0-8.5); URINE LEUKOCYTE ESTERASE NEG (NEG)
[2017-09-09 13:47] VITALS: BP 164/79; PULSE 102; RESP 18; O2SAT 98
[2017-09-09 13:50] LABS: URINE COLOR YELLOW (YELLW/STRAW)
[2017-09-09 13:51] LABS: BACTERIA, URINE FEW /hpf; RBC, URINE 0-3 /hpf (0-3); SQUAMOUS EPITHELIAL CELL URINE > 8 /hpf (0-5)
[2017-09-09 14:35] VITALS: BP 158/75; PULSE 110; RESP 18; O2SAT 96
--- NOTE | 2017-09-11 08:20 | EKG ---
Date Performed: 09/09/2017 Time Performed: 11:08:15 PTAGE: 72 years EKG: SINUS TACHYCARDIA MODERATE ST DEPRESSION ABNORMAL ECG Slight nonspecific ST abnormality but no major change from the prior tracing PREVIOUS TRACING : 07/26/2017 23.05 DOCTOR: Alvarado Jones Interpretating Date/Time 09/11/2017 08:19:23
== END 2017-09-09 14:56 | disposition home or self-care (01) ==
LOC: PHED 10:55
DX: K85.90 Acute pancreatitis without necrosis or infection, unspecified (principal); K21.9 Gastro-esophageal reflux disease without esophagitis; E03.9 Hypothyroidism, unspecified; R94.31 Abnormal electrocardiogram [ECG] [EKG]
CPT/HCPCS: 74176; 80053; 80307; 81001; 83690; 85025; 85610; 85730; 93005; 96361; 96374; 96375; 96376; 99285; J2270; J2405; J7030

== ENCOUNTER 2017-09-19 10:59 | Inpatient (IN) | payer MEDICARE, BC ==
[~2017-09-19] VITALS: Ht 165.1 cm; Wt 69.6 kg
[~2017-09-19 10:59] MED LIST changes: +HYDR-3366 PO; +ZOFR4TAB3 SL
[2017-09-19 11:08] VITALS: BP 179/90; PULSE 78; RESP 17; TEMP 98.9
[2017-09-19] MEDS ORDERED: ONDANSETRON HCL 4 MG/2 ML VIAL IVP ONE (11:15)
[2017-09-19] MEDS ORDERED: SODIUM CHLORID 0.9% 500 ML INJ 500 ML IV ONE (11:15)
[2017-09-19] MEDS ORDERED: LORazepam 2 MG/ML VIAL IV PUSH ONE (11:15)
--- NOTE | 2017-09-19 11:22 | PD ---
HPI Chief Complaint: Medical Clearance Time Seen by Provider: 11:13 Travel History International Travel<30 days: No Contact w/Intl Traveler<30days: No Traveled to known affect area: No History of Present Illness HPI 72-year-old female with a history of anxiety and pancreatitis presents to emergency department via E VAC with nausea and vomiting started this morning. Patient states that she had about 10 alcoholic drinks last night and developed abdominal pain last night located in her lower abdominal area. Patient denies abdominal pain now. States that she does feel short of breath but denies chest pain, back pain, abdominal pain. Denies diarrhea or constipation. Patient denies alcohol use this morning. Patient states that she did take her medication this morning which includes a thyroid, high blood pressure and anxiety medication. States she also tried to take her "anti-medic" but this has not helped with her nausea. Her primary care physician is Dr. Branch who also prescribes her all of her medications. PFSH Past Medical History Hx Anticoagulant Therapy: Yes Arthritis: Yes Asthma: No Autoimmune Disease: Yes (RA) Blood Disorders: No Anxiety: Yes Depression: Yes Heart Rhythm Problems: No Cancer: Yes (LEFT BREAST CA) Cardiovascular Problems: Yes High Cholesterol: No Chemotherapy: No Chest Pain: No Congestive Heart Failure: No COPD: No Cerebrovascular Accident: Yes (2016) Coronary Artery Disease: Yes Diabetes: No Diminished Hearing: Yes Endocrine: Yes (CHRONIC PANCREATITIS) Gastrointestinal Disorders: Yes (GASTRIC ULCERS) GERD: Yes Genitourinary: No Headaches: Yes Hiatal Hernia: No Heparin Induced Thrombocytopen: No Hypertension: Yes Immune Disorder: Yes Implanted Vascular Access Dvce: No Kidney Stones: No Musculoskeletal: Yes Neurologic: Yes Psychiatric: Yes Reproductive: No Respiratory: No Immunizations Current: Yes Migraines: Yes Pancreatitis: Yes Radiation Therapy: Yes Renal Failure: No Seizures: Yes Sickle Cell Disease: No Sleep Apnea: No Thyroid Disease: Yes (HYPOTHYROID) Ulcer: Yes Menopausal: Yes : 2 Para: 1 Miscarriage: 1 Past Surgical History Abdominal Surgery: Yes (HYSTERECTOMY) AICD: No Appendectomy: Yes Arteriovenous Shunt: No Body Medical Devices: L hip hardware in place , PT IS NOT SURE Cardiac Surgery: No Cholecystectomy: Yes Ear Surgery: No Endocrine Surgery: No Eye Surgery: No Genitourinary Surgery: No Gynecologic Surgery: Yes (TOTAL HYSTERECTOMY) Hysterectomy: Yes Insulin Pump: No Joint Replacement: No Neurologic Surgery: No Oral Surgery: No Pacemaker: No Thoracic Surgery: No Other Surgery: Yes (COLDWELL/SINUS REPAIR, LEFT LUMPECTOMY) Social History Alcohol Use: Yes (DAILY LIQUOR/WINE USE) Tobacco Use: No Substance Use: No Allergies-Medications (Allergen,Severity, Reaction): Coded Allergies: Sulfa (Sulfonamide Antibiotics) (Unverified Allergy, Intermediate, rash, ) Reported Meds & Prescriptions Reported Meds & Active Scripts Active [place] (Hydrocodone-Acetaminophen) 10-325 Mg Tab 1 Tab PO Q6H PRN Zofran Odt (Ondansetron Odt) 4 Mg Tab 4 Mg SL Q6HR PRN Klor-Con M20 (Potassium Chloride Microencaps) 20 Meq Tab 20 Meq PO DAILY Hydrocodone-Acetaminophen 5-325 mg Tab 1 Tab PO Q6H PRN Thera/Beta-Carotene (Multiple Vitamin) 1 Tab Tab 1 Tab PO DAILY Nexium (Esomeprazole DR) 40 Mg Capdr 40 Mg PO DAILY Reported Creon (Pancrelipase) 3,000-9,500-15,000 Units Cap 1 Cap PO TIDPC Maxzide (Triamterene/HCTZ) 75-50 Mg Tab 1 Tab PO DAILY Losartan (Losartan Potassium) 100 Mg Tab 100 Mg PO DAILY Alprazolam 1 Mg Tab 1 Mg PO HS PRN Levothyroxine (Levothyroxine Sodium) 175 Mcg Tab 175 Mcg PO DAILY Pristiq 24 HR (Desvenlafaxine ER 24 HR) 100 Mg Tab 100 Mg PO DAILY Review of Systems Except as stated in HPI: all other systems reviewed are Neg Physical Exam Narrative GENERAL: Well-developed well-nourished extremely anxious SKIN: Focused skin assessment warm/dry. HEAD: Atraumatic. Normocephalic. EYES: Pupils equal and round. No scleral icterus. No injection or drainage. ENT: No nasal bleeding or discharge. Mucous membranes pink and moist. NECK: Trachea midline. No JVD. No lymphadenopathy CARDIOVASCULAR: Regular rate and rhythm. No murmur appreciated. RESPIRATORY: No accessory muscle use. Clear to auscultation. Breath sounds equal bilaterally. GASTROINTESTINAL: Abdomen soft, non-tender, nondistended. MUSCULOSKELETAL: No obvious deformities. No clubbing. No cyanosis. No edema. NEUROLOGICAL: Awake and alert. No obvious cranial nerve deficits. Motor grossly within normal limits. Normal speech. PSYCHIATRIC: Appropriate mood, anxious Data Data Last Documented VS Vital Signs Date Time Temp Pulse Resp B/P (MAP) Pulse Ox O2 Delivery O2 Flow Rate FiO2 09/19/17 13:00 98 17 165/116 (132) 98 Room Air 09/19/17 11:08 98.9 Orders Orders Complete Blood Count With Diff (09/19/17 11:13) Comprehensive Metabolic Panel (09/19/17 11:13) Lipase (09/19/17 11:13) Prothrombin Time / Inr (Pt) (09/19/17 11:13) Act Partial Throm Time (Ptt) (09/19/17 11:13) Urinalysis - C+S If Indicated (09/19/17 11:13) Ondansetron Inj (Zofran Inj) (09/19/17 11:15) Electrocardiogram (09/19/17 11:13) Lorazepam Inj (Ativan Inj) (09/19/17 11:15) Sodium Chlorid 0.9% 500 Ml Inj (Ns 500 M (09/19/17 11:15) Oral Rehydration (09/19/17 11:13) Psych Screen (09/19/17 11:13) Drug Screen, Random Urine (09/19/17 11:13) Troponin I (09/19/17 11:13) Potassium Chloride (Kcl) (09/19/17 12:15) Urine Culture (09/19/17 13:05) Ceftriaxone Inj (Rocephin Inj) (09/19/17 14:15) Basic Metabolic Panel (Bmp) (09/19/17 14:08) Admit Order (Ed Use Only) (09/19/17 14:08) Labs Laboratory Tests Test 09/19/17 11:20 09/19/17 13:05 White Blood Count 3.6 TH/MM3 Red Blood Count 3.44 MIL/MM3 Hemoglobin 12.1 GM/DL Hematocrit 34.6 % Mean Corpuscular Volume 100.4 FL Mean Corpuscular Hemoglobin 35.1 PG Mean Corpuscular Hemoglobin Concent 35.0 % Red Cell Distribution Width 17.6 % Platelet Count 238 TH/MM3 Mean Platelet Volume 7.0 FL Neutrophils (%) (Auto) 57.6 % Lymphocytes (%) (Auto) 28.2 % Monocytes (%) (Auto) 13.4 % Eosinophils (%) (Auto) 0.3 % Basophils (%) (Auto) 0.5 % Neutrophils # (Auto) 2.1 TH/MM3 Lymphocytes # (Auto) 1.0 TH/MM3 Monocytes # (Auto) 0.5 TH/MM3 Eosinophils # (Auto) 0.0 TH/MM3 Basophils # (Auto) 0.0 TH/MM3 CBC Comment DIFF FINAL Differential Comment Prothrombin Time 11.3 SEC Prothromb Time International Ratio 1.1 RATIO Activated Partial Thromboplast Time 24.5 SEC Blood Urea Nitrogen 9 MG/DL Creatinine 0.31 MG/DL Random Glucose 60 MG/DL Total Protein 4.3 GM/DL Albumin 1.9 GM/DL Calcium Level 5.1 MG/DL Alkaline Phosphatase 52 U/L Aspartate Amino Transf (AST/SGOT) 36 U/L Alanine Aminotransferase (ALT/SGPT) 16 U/L Total Bilirubin 0.3 MG/DL Sodium Level 145 MEQ/L Potassium Level 3.0 MEQ/L Chloride Level 121 MEQ/L Carbon Dioxide Level 12.8 MEQ/L Anion Gap 11 MEQ/L Estimat Glomerular Filtration Rate 212 ML/MIN Protein Corrected Calcium 6.2 MG/DL Troponin I LESS THAN 0.02 NG/ML Lipase 253 U/L Urine Color YELLOW Urine Turbidity HAZY Urine pH 5.5 Urine Specific [place] 1.012 Urine Protein 30 mg/dL Urine Glucose (UA) NEG mg/dL Urine Ketones NEG mg/dL Urine Occult Blood TRACE Urine Nitrite NEG Urine Bilirubin NEG Urine Urobilinogen 2.0 MG/DL Urine Leukocyte Esterase NEG Urine RBC LESS THAN 1 /hpf Urine WBC 1 /hpf Urine Squamous Epithelial Cells 6 /hpf Urine Bacteria RARE /hpf Urine Mucus FEW /lpf Microscopic Urinalysis Comment CATH-CULTURE IND Urine Opiates Screen NEG Urine Barbiturates Screen NEG Urine Amphetamines Screen NEG Urine Benzodiazepines Screen NEG Urine Cocaine Screen NEG Urine Cannabinoids Screen NEG MDM Medical Decision Making Medical Screen Exam Complete: Yes Emergency Medical Condition: Yes Differential Diagnosis Pancreatitis, anxiety, panic attack, gastroenteritis, Narrative Course 72-year-old female with a history of anxiety and pancreatitis presents to emergency department via E VAC with nausea and vomiting started this morning. Patient states that she had about 10 alcoholic drinks last night and developed abdominal pain last night located in her lower abdominal area. States she only occassionally drinks. Patient denies abdominal pain now. States that she does feel short of breath but denies chest pain, back pain, abdominal pain. Denies diarrhea or constipation. Patient denies alcohol use this morning. Patient states that she did take her medication this morning which includes a thyroid, high blood pressure and anxiety medication. States she also tried to take her "anti-emetic" but this has not helped with her nausea. Her primary care physician is Dr. Branch who also prescribes her all of her medications. Vital signs Patient arrived tremulous and in mild distress. Patient did not actively appear nauseous and did not vomit while in the emergency department today at my assessments. After further discussion, it appears that her approximately one year ago and her only friend is 'dying'. I offered the patient a psych screen and she agreed and was appreciative of this. In addition , administered Ativan 0.5 mg and Zofran to assist with controlling her symptoms. Laboratory Tests Test 09/19/17 11:20 09/19/17 13:05 White Blood Count 3.6 TH/MM3 Red Blood Count 3.44 MIL/MM3 Hemoglobin 12.1 GM/DL Hematocrit 34.6 % Mean Corpuscular Volume 100.4 FL Mean Corpuscular Hemoglobin 35.1 PG Mean Corpuscular Hemoglobin Concent 35.0 % Red Cell Distribution Width 17.6 % Platelet Count 238 TH/MM3 Mean Platelet Volume 7.0 FL Neutrophils (%) (Auto) 57.6 % Lymphocytes (%) (Auto) 28.2 % Monocytes (%) (Auto) 13.4 % Eosinophils (%) (Auto) 0.3 % Basophils (%) (Auto) 0.5 % Neutrophils # (Auto) 2.1 TH/MM3 Lymphocytes # (Auto) 1.0 TH/MM3 Monocytes # (Auto) 0.5 TH/MM3 Eosinophils # (Auto) 0.0 TH/MM3 Basophils # (Auto) 0.0 TH/MM3 CBC Comment DIFF FINAL Differential Comment Prothrombin Time 11.3 SEC Prothromb Time International Ratio 1.1 RATIO Activated Partial Thromboplast Time 24.5 SEC Blood Urea Nitrogen 9 MG/DL Creatinine 0.31 MG/DL Random Glucose 60 MG/DL Total Protein 4.3 GM/DL Albumin 1.9 GM/DL Calcium Level 5.1 MG/DL Alkaline Phosphatase 52 U/L Aspartate Amino Transf (AST/SGOT) 36 U/L Alanine Aminotransferase (ALT/SGPT) 16 U/L Total Bilirubin 0.3 MG/DL Sodium Level 145 MEQ/L Potassium Level 3.0 MEQ/L Chloride Level 121 MEQ/L Carbon Dioxide Level 12.8 MEQ/L Anion Gap 11 MEQ/L Estimat Glomerular Filtration Rate 212 ML/MIN Protein Corrected Calcium 6.2 MG/DL Troponin I LESS THAN 0.02 NG/ML Lipase 253 U/L Urine Color YELLOW Urine Turbidity HAZY Urine pH 5.5 Urine Specific [place] 1.012 Urine Protein 30 mg/dL Urine Glucose (UA) NEG mg/dL Urine Ketones NEG mg/dL Urine Occult Blood TRACE Urine Nitrite NEG Urine Bilirubin NEG Urine Urobilinogen 2.0 MG/DL Urine Leukocyte Esterase NEG Urine RBC LESS THAN 1 /hpf Urine WBC 1 /hpf Urine Squamous Epithelial Cells 6 /hpf Urine Bacteria RARE /hpf Urine Mucus FEW /lpf Microscopic Urinalysis Comment CATH-CULTURE IND Urine Opiates Screen NEG Urine Barbiturates Screen NEG Urine Amphetamines Screen NEG Urine Benzodiazepines Screen NEG Urine Cocaine Screen NEG Urine Cannabinoids Screen NEG Protein corrected calcium is 6.2. Urine demonstrates probable urinary tract infection- rocephin 1g initiated in the ED. . Patient does have a significant history of alcohol use. Patient remains pain-free today in the emergency department today. I recommended admission for observation monitoring of calcium. 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 Diagnosis Primary Impression: Hypocalcemia Additional Impressions: Alcohol abuse UTI (urinary tract infection) Qualified Codes: N30.00 - Acute cystitis without hematuria Admitting Information Admitting Physician Requests: Observation Condition: Stable Makayla Whitney Sep 19, 2017 11:22
[2017-09-19 11:33] LABS: AUTOMATED NEUTROPHIL # 2.1 TH/MM3 (1.8-7.7); BASOPHIL % 0.5 % (0.0-2.0); EOSINOPHIL % 0.3 % (0.0-4.0); HEMATOCRIT 34.6 % (35.0-46.0); HEMOGLOBIN 12.1 GM/DL (11.6-15.3); LYMPH % 28.2 % (9.0-44.0); MEAN CELL VOLUME 100.4 FL (80.0-100.0); MEAN CORPUSCULAR HEMOGLOBIN 35.1 PG (27.0-34.0); MONO % 13.4 % (0.0-8.0); MONOCYTE # 0.5 TH/MM3 (0-0.9); NEUT % 57.6 % (16.0-70.0); PLATELET COUNT 238 TH/MM3 (150-450); RED BLOOD COUNT 3.44 MIL/MM3 (4.00-5.30); RED CELL DISTRIBUTION WIDTH 17.6 % (11.6-17.2); WHITE BLOOD COUNT 3.6 TH/MM3 (4.0-11.0)
[2017-09-19 11:50] LABS: INTERNATIONAL NORMALIZED RATIO 1.1 RATIO; PROTHROMBIN TIME - PATIENT 11.3 SEC (9.8-11.6)
[2017-09-19 11:51] LABS: ALBUMIN 1.9 GM/DL (3.4-5.0); ALKALINE PHOSPHATASE 52 U/L (45-117); ALT (GPT) 16 U/L (10-53); AST (GOT) 36 U/L (15-37); BICARBONATE 12.8 MEQ/L (21.0-32.0); BLOOD UREA NITROGEN 9 MG/DL (7-18); CALCIUM 5.1 MG/DL (8.5-10.1); CHLORIDE 121 MEQ/L (98-107); CREATININE 0.31 MG/DL (0.50-1.00); GLOMERULAR FILTRATION RATE 212 ML/MIN (>89); GLUCOSE,RANDOM 60 MG/DL (74-106); LIPASE 253 U/L (73-393); SODIUM (NA) 145 MEQ/L (136-145); TOTAL BILIRUBIN ADULT 0.3 MG/DL (0.2-1.0); TOTAL PROTEIN 4.3 GM/DL (6.4-8.2); TROPONIN I LESS THAN 0.02 NG/ML (0.02-0.05)
[2017-09-19 11:57] LABS: CALCIUM-PROTEIN CORRECTED 6.2 MG/DL (8.5-10.1)
[2017-09-19] MEDS ORDERED: POTASSIUM CHLORIDE 10 MEQ CONTROLLED RELEASE TAB PO ONE (12:15)
[2017-09-19 13:00] VITALS: BP 165/116; PULSE 98; RESP 17; O2SAT 98
[2017-09-19 13:38] LABS: BACTERIA, URINE RARE /hpf; BILIRUBIN, URINE NEG (NEG); BLOOD, URINE TRACE (NEG); GLUCOSE,URINE NEG (NEG); KETONE, URINE NEG (NEG); MUCUS URINE FEW /lpf (OCC); NITRITE,URINE NEG (NEG); PH, URINE 5.5 (5.0-8.5); SQUAMOUS EPITHELIAL CELL URINE 6 /hpf (0-5); URINE COLOR YELLOW (YELLW/STRAW); URINE LEUKOCYTE ESTERASE NEG (NEG)
--- NOTE | 2017-09-19 14:07 | PD ---
Physical Exam Date Seen by Provider: Sep 19, 2017 Time Seen by Provider: 12:00 Narrative I, Dr. Tomas, have reviewed the advance practice practitioner's documentation and am in agreement, met with the patient face to face, made the diagnosis, and the medical decision making was done by me. *My assessment and Findings: Patient seen and evaluated with PA, please see PA notes for further details. She has long history of alcohol abuse and pancreatitis, has been nausea and vomiting worsening last few days, was trying to avoid coming to the ER. On initial exam, she is mildly tender upper abdomen but there is a the abdomen is fairly benign and nontender. There is no significant distention. Otherwise, she is an emotional distress because of friend is dying. EKG shows normal sinus rhythm at a rate 90 bpm with no signs of acute ST-T changes. Laboratory Tests Test 09/19/17 11:20 09/19/17 13:05 White Blood Count 3.6 TH/MM3 (4.0-11.0) Red Blood Count 3.44 MIL/MM3 (4.00-5.30) Hematocrit 34.6 % (35.0-46.0) Mean Corpuscular Volume 100.4 FL (80.0-100.0) Mean Corpuscular Hemoglobin 35.1 PG (27.0-34.0) Red Cell Distribution Width 17.6 % (11.6-17.2) Monocytes (%) (Auto) 13.4 % (0.0-8.0) Creatinine 0.31 MG/DL (0.50-1.00) Random Glucose 60 MG/DL (74-106) Total Protein 4.3 GM/DL (6.4-8.2) Albumin 1.9 GM/DL (3.4-5.0) Calcium Level 5.1 MG/DL (8.5-10.1) Potassium Level 3.0 MEQ/L (3.5-5.1) Chloride Level 121 MEQ/L (98-107) Carbon Dioxide Level 12.8 MEQ/L (21.0-32.0) Protein Corrected Calcium 6.2 MG/DL (8.5-10.1) Troponin I LESS THAN 0.02 NG/ML Urine Turbidity HAZY (CLEAR) Urine Protein 30 mg/dL (NEG-TRACE) Urine Occult Blood TRACE (NEG) Urine Bacteria RARE /hpf (NONE) Urine Mucus FEW /lpf (OCC) Lab work shows significant hypokalemia and hypocalcemia. IV replacement was initiated in the ER. IV fluids and anti-medics were given. Abdomen was otherwise fairly benign. Lipase was negative for any elevations. She did appear somewhat tremulous and anxious and benzodiazepine was given to prevent withdrawal. She has not had anything to drink since yesterday but did have a large amount of alcohol yesterday. At this point, my plan would be to admit the patient for further treatment. She will likely also need psychiatric consultation due to her emotional distress. Case is discussed with Dr. Senior for admission to the hospital. Data Data Last Documented VS Vital Signs Date Time Temp Pulse Resp B/P (MAP) Pulse Ox O2 Delivery O2 Flow Rate FiO2 09/19/17 11:08 98.9 78 17 179/90 (119) Orders Orders Complete Blood Count With Diff (09/19/17 11:13) Comprehensive Metabolic Panel (09/19/17 11:13) Lipase (09/19/17 11:13) Prothrombin Time / Inr (Pt) (09/19/17 11:13) Act Partial Throm Time (Ptt) (09/19/17 11:13) Urinalysis - C+S If Indicated (09/19/17 11:13) Ondansetron Inj (Zofran Inj) (09/19/17 11:15) Electrocardiogram (09/19/17 11:13) Lorazepam Inj (Ativan Inj) (09/19/17 11:15) Sodium Chlorid 0.9% 500 Ml Inj (Ns 500 M (09/19/17 11:15) Oral Rehydration (09/19/17 11:13) Psych Screen (09/19/17 11:13) Drug Screen, Random Urine (09/19/17 11:13) Troponin I (09/19/17 11:13) Potassium Chloride (Kcl) (09/19/17 12:15) Urine Culture (09/19/17 13:05) Ceftriaxone Inj (Rocephin Inj) (09/19/17 14:15) Labs Laboratory Tests Test 09/19/17 11:20 09/19/17 13:05 White Blood Count 3.6 TH/MM3 Red Blood Count 3.44 MIL/MM3 Hemoglobin 12.1 GM/DL Hematocrit 34.6 % Mean Corpuscular Volume 100.4 FL Mean Corpuscular Hemoglobin 35.1 PG Mean Corpuscular Hemoglobin Concent 35.0 % Red Cell Distribution Width 17.6 % Platelet Count 238 TH/MM3 Mean Platelet Volume 7.0 FL Neutrophils (%) (Auto) 57.6 % Lymphocytes (%) (Auto) 28.2 % Monocytes (%) (Auto) 13.4 % Eosinophils (%) (Auto) 0.3 % Basophils (%) (Auto) 0.5 % Neutrophils # (Auto) 2.1 TH/MM3 Lymphocytes # (Auto) 1.0 TH/MM3 Monocytes # (Auto) 0.5 TH/MM3 Eosinophils # (Auto) 0.0 TH/MM3 Basophils # (Auto) 0.0 TH/MM3 CBC Comment DIFF FINAL Differential Comment Prothrombin Time 11.3 SEC Prothromb Time International Ratio 1.1 RATIO Activated Partial Thromboplast Time 24.5 SEC Blood Urea Nitrogen 9 MG/DL Creatinine 0.31 MG/DL Random Glucose 60 MG/DL Total Protein 4.3 GM/DL Albumin 1.9 GM/DL Calcium Level 5.1 MG/DL Alkaline Phosphatase 52 U/L Aspartate Amino Transf (AST/SGOT) 36 U/L Alanine Aminotransferase (ALT/SGPT) 16 U/L Total Bilirubin 0.3 MG/DL Sodium Level 145 MEQ/L Potassium Level 3.0 MEQ/L Chloride Level 121 MEQ/L Carbon Dioxide Level 12.8 MEQ/L Anion Gap 11 MEQ/L Estimat Glomerular Filtration Rate 212 ML/MIN Protein Corrected Calcium 6.2 MG/DL Troponin I LESS THAN 0.02 NG/ML Lipase 253 U/L Urine Color YELLOW Urine Turbidity HAZY Urine pH 5.5 Urine Specific [place] 1.012 Urine Protein 30 mg/dL Urine Glucose (UA) NEG mg/dL Urine Ketones NEG mg/dL Urine Occult Blood TRACE Urine Nitrite NEG Urine Bilirubin NEG Urine Urobilinogen 2.0 MG/DL Urine Leukocyte Esterase NEG Urine RBC LESS THAN 1 /hpf Urine WBC 1 /hpf Urine Squamous Epithelial Cells 6 /hpf Urine Bacteria RARE /hpf Urine Mucus FEW /lpf Microscopic Urinalysis Comment CATH-CULTURE IND Urine Opiates Screen NEG Urine Barbiturates Screen NEG Urine Amphetamines Screen NEG Urine Benzodiazepines Screen NEG Urine Cocaine Screen NEG Urine Cannabinoids Screen NEG MDM Medical Record Reviewed: Yes Supervised Visit with ALFREDA: Yes Diagnosis Primary Impression: Hypocalcemia Additional Impressions: Alcohol abuse UTI (urinary tract infection) Qualified Codes: N30.00 - Acute cystitis without hematuria Admitting Information Admitting Physician Requests: Admit Condition: Stable Gracia Tomas MD Sep 19, 2017 14:07
[2017-09-19] MEDS ORDERED: ACETAMINOPHEN 325 MG TAB PO PRN (14:15)
[2017-09-19] MEDS ORDERED: cefTRIAXone INJ 1,000 MG in SODIUM CHLORIDE 0.9% INJ 100 ML IV ONE (14:15)
--- NOTE | 2017-09-19 14:27 | HHI.HP ---
[facility] No Primary Care Physician Admission Diagnosis severe hypocalcemia/hypo-kalemia/anxiety Diagnoses: (1) Hypokalemia Diagnosis: Principal (2) ETOH abuse Diagnosis: Principal (3) Hypocalcemia Diagnosis: Principal (4) Diarrhea Diagnosis: Principal Chief Complaint: nausea/vomiting and diarrhea Travel History International Travel<30 Days: No Contact w/Intl Traveler <30 Da: No Traveled to Known Affected Are: No History of Present Illness patient is a 72 y/o female with history of alcohol abuse and pancreatitis, hypertension who presented to ER with nausea and vomiting. she says that she started to feel sick last night with nausea,emesis and a few loose, non-bloody bowel movements.she denies any fever, chills. but she has mild lower abdominal pain. she says that she was just treated with antibiotic for possible UTI. she denies any cough, chest pain. she has two-three drinks daily and the last drink was last night. Review of Systems Constitutional: DENIES: Fever, Weight loss, Chills, Night Sweats Eyes: DENIES: Blurred vision, Diplopia, Vision loss, Double Vision Ears, nose, mouth, throat: DENIES: Tinnitus, Vertigo, Throat pain, Epistaxis Respiratory: DENIES: Apneas, Cough, Snoring, Wheezing, Hemoptysis, Sputum production, Shortness of breath Cardiovascular: DENIES: Chest pain, Palpitations, Syncope, Dyspnea on Exertion , PND, Lower Extremity Edema, Orthopnea, Claudication Gastrointestinal: COMPLAINS OF: Abdominal pain, Diarrhea, Nausea, Vomiting, DENIES: Black stools, Bloody stools, Constipation, Difficulty Swallowing, Anorexia Genitourinary: DENIES: Urinary frequency, Urgency, Hematuria, Dysuria Musculoskeletal: DENIES: Joint pain, Muscle aches, Stiffness, Joint Swelling Integumentary: DENIES: Rash Neurologic: DENIES: Abnormal gait, Headache, Localized weakness, Paresthesias, Seizures, Speech Problems, Tremor, Poor Balance Psychiatric: DENIES: Anxiety, Confusion, Mood changes, Depression, Hallucinations, Agitation, Suicidal Ideation, Homicidal Ideation, Delusions Past Family Social History Past Medical History hypertension pancreatitis hypothyroidism breast cancer Past Surgical History breast lumpectomy / hysterectomy Reported Medications [place] (Hydrocodone-Acetaminophen) 10-325 Mg Tab 1 Tab PO Q6H PRN Zofran Odt (Ondansetron Odt) 4 Mg Tab 4 Mg SL Q6HR PRN Klor-Con M20 (Potassium Chloride Microencaps) 20 Meq Tab 20 Meq PO DAILY Hydrocodone-Acetaminophen 5-325 mg Tab 1 Tab PO Q6H PRN Thera/Beta-Carotene (Multiple Vitamin) 1 Tab Tab 1 Tab PO DAILY Nexium (Esomeprazole DR) 40 Mg Capdr 40 Mg PO DAILY Creon (Pancrelipase) 3,000-9,500-15,000 Units Cap 1 Cap PO TIDPC Maxzide (Triamterene/HCTZ) 75-50 Mg Tab 1 Tab PO DAILY Losartan (Losartan Potassium) 100 Mg Tab 100 Mg PO DAILY Alprazolam 1 Mg Tab 1 Mg PO HS PRN Levothyroxine (Levothyroxine Sodium) 175 Mcg Tab 175 Mcg PO DAILY Pristiq 24 HR (Desvenlafaxine ER 24 HR) 100 Mg Tab 100 Mg PO DAILY Allergies: Coded Allergies: Sulfa (Sulfonamide Antibiotics) (Unverified Allergy, Intermediate, rash, ) Active Ordered Medications Inpatient Medications Acetaminophen (Tylenol) 650 mg Q4H PRN PO FEVER/PAIN; Start 09/19/17 at 14:15; Status UNV Acetaminophen/ Hydrocodone Bitart ([place] 5-325 Mg) 1 tab Q4H PRN PO PAIN < 5; Start 09/19/17 at 14:30; Status UNV Alprazolam (Xanax) 1 mg HS PRN PO ANXIETY; Start 09/19/17 at 14:15; Status UNV Ceftriaxone Sodium 1000 mg/ Sodium Chloride 100 ml @ 200 mls/hr ONCE ONCE IV ; Start 09/19/17 at 14:15; Stop 09/19/17 at 14:44 Enoxaparin Sodium (Lovenox Inj) 40 mg Q24H SQ ; Start 09/20/17 at 09:00; Status UNV Flumazenil (Romazicon Inj) 0.2 mg Q1M PRN IV PUSH SEE LABEL COMMENTS; Start at 14:30; Status UNV Lorazepam (Ativan Inj) 2 mg Q15M PRN IV PUSH CIWA > 20; Start 09/19/17 at 14:30 ; Status UNV Lorazepam (Ativan) 2 mg Q2H PRN PO CIWA 11-14; Start 09/19/17 at 14:30; Status UNV Losartan Potassium (Cozaar) 100 mg DAILY PO ; Start 09/20/17 at 09:00; Status UNV Morphine Sulfate (Morphine Inj) 2 mg Q4H PRN IV PUSH PAIN 6-10; Start 09/19/17 at 14:30; Status UNV Multivitamins (Theragran) 1 tab DAILY PO ; Start 09/20/17 at 09:00; Status UNV Non-Formulary Medication 1 cap TIDPC PO ; Start 09/19/17 at 18:30; Status UNV Ondansetron HCl (Zofran Inj) 4 mg Q8HR PRN IV PUSH NAUSEA; Start 09/19/17 at 14 :15; Status UNV Potassium Chloride (KCl) 40 meq ONCE ONCE PO Last administered on 09/19/17at 12 :55; Start 09/19/17 at 12:15; Stop 09/19/17 at 12:16; Status DC Sodium Chloride 1,000 ml @ 100 mls/hr Q10H IV ; Start 09/19/17 at 14:15; Status UNV Thiamine HCl 100 mg/Sodium Chloride 101 ml @ 101 mls/hr DAILY IV ; Start at 14:30; Status UNV Family History not relevant to this admission. Social History doesn't smoke- drinks daily. Physical Exam Vital Signs Vital Signs Date Time Temp Pulse Resp B/P (MAP) Pulse Ox O2 Delivery O2 Flow Rate FiO2 09/19/17 11:08 98.9 78 17 179/90 (119) Physical Exam GENERAL: This is a well-nourished, well-developed patient, in no apparent distress. SKIN: No rashes, ecchymoses or lesions. Cool and dry. HEAD: Atraumatic. Normocephalic. No temporal or scalp tenderness. EYES: Pupils equal round and reactive. Extraocular motions intact. No scleral icterus. No injection or drainage. ENT: Nose without bleeding, purulent drainage or septal hematoma. Throat without erythema, tonsillar hypertrophy or exudate. Uvula midline. Airway patent. NECK: Trachea midline. No JVD or lymphadenopathy. Supple, nontender, no meningeal signs. CARDIOVASCULAR: Regular rate and rhythm without murmurs, gallops, or rubs. RESPIRATORY: Clear to auscultation. Breath sounds equal bilaterally. No wheezes , rales, or rhonchi. GASTROINTESTINAL: Abdomen soft, non-tender, nondistended. No hepato-splenomegaly , or palpable masses. No guarding. MUSCULOSKELETAL: Extremities without clubbing, cyanosis, or edema. No joint tenderness, effusion, or edema noted. No calf tenderness. Negative Homans sign bilaterally. NEUROLOGICAL: Awake and alert. Cranial nerves II through XII intact. Motor and sensory grossly within normal limits. Five out of 5 muscle strength in all muscle groups. Normal speech. Laboratory Laboratory Tests Test 09/19/17 11:20 09/19/17 13:05 White Blood Count 3.6 Red Blood Count 3.44 Hemoglobin 12.1 Hematocrit 34.6 Mean Corpuscular Volume 100.4 Mean Corpuscular Hemoglobin 35.1 Mean Corpuscular Hemoglobin Concent 35.0 Red Cell Distribution Width 17.6 Platelet Count 238 Mean Platelet Volume 7.0 Neutrophils (%) (Auto) 57.6 Lymphocytes (%) (Auto) 28.2 Monocytes (%) (Auto) 13.4 Eosinophils (%) (Auto) 0.3 Basophils (%) (Auto) 0.5 Neutrophils # (Auto) 2.1 Lymphocytes # (Auto) 1.0 Monocytes # (Auto) 0.5 Eosinophils # (Auto) 0.0 Basophils # (Auto) 0.0 CBC Comment DIFF FINAL Differential Comment Prothrombin Time 11.3 Prothromb Time International Ratio 1.1 Activated Partial Thromboplast Time 24.5 Blood Urea Nitrogen 9 Creatinine 0.31 Random Glucose 60 Total Protein 4.3 Albumin 1.9 Calcium Level 5.1 Alkaline Phosphatase 52 Aspartate Amino Transf (AST/SGOT) 36 Alanine Aminotransferase (ALT/SGPT) 16 Total Bilirubin 0.3 Sodium Level 145 Potassium Level 3.0 Chloride Level 121 Carbon Dioxide Level 12.8 Anion Gap 11 Estimat Glomerular Filtration Rate 212 Protein Corrected Calcium 6.2 Troponin I LESS THAN 0.02 Lipase 253 Urine Color YELLOW Urine Turbidity HAZY Urine pH 5.5 Urine Specific [place] 1.012 Urine Protein 30 Urine Glucose (UA) NEG Urine Ketones NEG Urine Occult Blood TRACE Urine Nitrite NEG Urine Bilirubin NEG Urine Urobilinogen 2.0 Urine Leukocyte Esterase NEG Urine RBC LESS THAN 1 Urine WBC 1 Urine Squamous Epithelial Cells 6 Urine Bacteria RARE Urine Mucus FEW Microscopic Urinalysis Comment CATH-CULTURE IND Urine Opiates Screen NEG Urine Barbiturates Screen NEG Urine Amphetamines Screen NEG Urine Benzodiazepines Screen NEG Urine Cocaine Screen NEG Urine Cannabinoids Screen NEG Date/Time Source Procedure Growth Status 09/19/17 13:05 Urine Catheterized Urine Urine Culture Pending Received Result Diagram: 09/19/17 1120 09/19/17 1120 Caprini VTE Risk Assessment Caprini VTE Risk Assessment: Mod/High Risk (score >= 2) Caprini Risk Assessment Model Point Value = 1 Point Value = 2 Point Value = 3 Point Value = 5 Age 41-60 Minor surgery BMI > 25 kg/m2 Swollen legs Varicose veins or History of unexplained or recurrent spontaneous Oral contraceptives or hormone replacement Sepsis (< 1 month) Serious lung disease, including pneumonia (< 1 month) Abnormal pulmonary function Acute myocardial infarction Congestive heart failure (< 1 month) History of inflammatory bowel disease Medical patient at bed rest Age 61-74 Arthroscopic surgery Major open surgery (> 45 min) Laparoscopic surgery (> 45 min) Malignancy Confined to bed (> 72 hours) Immobilizing plaster cast Central venous access Age >= 75 History of VTE Family history of VTE Factor V Leiden Prothrombin [id number] Lupus anticoagulant Anticardiolipin antibodies Elevated serum homocysteine Heparin-induced thrombocytopenia Other congenital or acquired thrombophilia Stroke (< 1 month) Elective arthroplasty Hip, pelvis, or leg fracture Acute spinal cord injury (< 1 month) Prophylaxis Regimen Total Risk Factor Score Risk Level Prophylaxis Regimen 0-1 Low Early ambulation 2 Moderate Order ONE of the following: *Sequential Compression Device (SCD) *Heparin 5000 units SQ BID 3-4 Higher Order ONE of the following medications: *Heparin 5000 units SQ TID *Enoxaparin/Lovenox 40 mg SQ daily (WT < 150 kg, CrCl > 30 mL/min) *Enoxaparin/Lovenox 30 mg SQ daily (WT < 150 kg, CrCl > 10-29 mL/min) *Enoxaparin/Lovenox 30 mg SQ BID (WT < 150 kg, CrCl > 30 mL/min) AND/OR *Sequential Compression Device (SCD) 5 or more Highest Order ONE of the following medications: *Heparin 5000 units SQ TID (Preferred with Epidurals) *Enoxaparin/Lovenox 40 mg SQ daily (WT < 150 kg, CrCl > 30 mL/min) *Enoxaparin/Lovenox 30 mg SQ daily (WT < 150 kg, CrCl > 10-29 mL/min) *Enoxaparin/Lovenox 30 mg SQ BID (WT < 150 kg, CrCl > 30 mL/min) AND *Sequential Compression Device (SCD) Assessment and Plan Assessment and Plan A/P - gastroenteritis start on full liquid diet and advance the diet as tolerated- continue supportive care with IV fluid, antiemetics and pain control check the stool for c-diff in light of recent antibiotic use -electrolyte abnormalities; hypokalemia, hypocalcemia/ metabolic acidosis will repeat the BMP ( stat) and replace the electrolytes as needed. -alcohol abuse; counselled on drinking cessation. start on CIWA protocol/ thiamine and multivitamin -hypertension; resume home meds- vasotec as needed- continue to monitor and adjust the regimen as needed. -history of pancreatitis- continue Pancrelipase -DVT prophylaxis with subq Lovenox -consult PT. Discussed Condition With the patient and ER and the RN. Physician Certification 2 Midnight Certification Type: Admission for Inpatient Services Order for Inpatient Services The services are ordered in accordance with Medicare regulations or non- Medicare payer requirements, as applicable. In the case of services not specified as inpatient-only, they are appropriately provided as inpatient services in accordance with the 2-midnight benchmark. Estimated LOS (days): 2 days is the estimated time the patient will need to remain in the hospital, assuming treatment plan goals are met and no additional complications. Post-Hospital Plan: Not yet determined Problem Qualifiers (1) Diarrhea: Qualified Codes: R19.7 - Diarrhea, unspecified Carl Pace MD Sep 19, 2017 14:27
[2017-09-19] MEDS ORDERED: LORazepam 1 MG TAB PO PRN (14:30)
[2017-09-19] MEDS ORDERED: LORazepam 2 MG/ML VIAL IV PUSH PRN ×2 (14:30)
[2017-09-19] MEDS ORDERED: LORazepam 2 MG TAB PO PRN (14:30)
[2017-09-19] MEDS ORDERED: MORPHINE SULFATE 2 MG/ML INJ IV PUSH PRN (14:30)
[2017-09-19] MEDS ORDERED: FLUMAZENIL 0.5 MG/5 ML VIAL IV PUSH PRN (14:30)
[2017-09-19] MEDS ORDERED: ACETAMINOPHEN/HYDROcodone 325 MG/5 MG TAB PO PRN (14:30)
[2017-09-19 15:00] VITALS: BP 177/71; PULSE 84; RESP 22; TEMP 98.8; O2SAT 100
[2017-09-19] MEDS ORDERED: ENALAPRILAT 1.25 MG/ML VIAL IV PUSH PRN (15:15)
[2017-09-19] MEDS: THIAMINE INJ 100 MG in SODIUM CHLORIDE 0.9% INJ 100 ML IV SCH (15:22)
[2017-09-19] MEDS: SODIUM CHLOR 0.9% 1000 ML INJ 1,000 ML IV SCH (15:22)
[2017-09-19 15:30] VITALS: BP 146/70; PULSE 86; RESP 13; O2SAT 98
[2017-09-19 17:15] VITALS: BP 147/67; PULSE 95; RESP 20; TEMP 98.2; O2SAT 97
[2017-09-19] MEDS ORDERED: PANCRELIPASE PO SCH (18:30)
[2017-09-19 20:00] VITALS: BP 172/83; PULSE 114; PULSE 98; RESP 22; TEMP 98.2; O2SAT 97
[2017-09-19] MEDS: ONDANSETRON HCL 4 MG/2 ML VIAL IV PUSH PRN (20:40)
[2017-09-19] MEDS: LORazepam 2 MG/ML VIAL IV PUSH PRN (20:40)
--- NOTE | 2017-09-19 22:00 | EKG ---
Date Performed: 09/19/2017 Time Performed: 11:24:42 PTAGE: 72 years EKG: Sinus rhythm NORMAL ECG Since PREVIOUS TRACING , no significant change noted DOCTOR: Gigi Menjivar Interpretating Date/Time 09/19/2017 21:58:41
[2017-09-20] VITALS (8 sets, daily range): BP systolic 150–179; BP diastolic 78–98; PULSE 68–110; RESP 17–21; TEMP 97.4–99; O2SAT 95–100
[2017-09-20 01:35] LABS: BICARBONATE 20.2 MEQ/L (21.0-32.0); CALCIUM 8.8 MG/DL (8.5-10.1); CREATININE 0.82 MG/DL (0.50-1.00)
[2017-09-20] MEDS: SODIUM CHLOR 0.9% 1000 ML INJ 1,000 ML IV SCH ×3 (03:42→18:41)
[2017-09-20] MEDS: LORazepam 2 MG/ML VIAL IV PUSH PRN (04:20)
[2017-09-20] MEDS: LEVOTHYROXINE SODIUM 100 MCG TAB PO SCH (05:25)
[2017-09-20] MEDS: LEVOTHYROXINE SODIUM 75 MCG TAB PO SCH (05:25)
[2017-09-20] MEDS: MULTIVITAMIN TAB PO SCH (08:39)
[2017-09-20] MEDS: PANTOPRAZOLE SOD 40 MG DELAYED RELEASE TAB PO SCH (08:39)
[2017-09-20] MEDS: LOSARTAN 50 MG TAB PO SCH (08:40)
[2017-09-20] MEDS: THIAMINE INJ 100 MG in SODIUM CHLORIDE 0.9% INJ 100 ML IV SCH (08:40)
[2017-09-20] MEDS: ENOXAPARIN SODIUM 40 MG/0.4 ML SYRINGE SQ SCH (08:40)
[2017-09-20] MEDS ORDERED: NON-FORMULARY DRUG (Levothyroxine 175 MCG) PO SCH (09:00)
[2017-09-20] MEDS ORDERED: MULTIVITAMIN TAB PO SCH (09:00)
[2017-09-20] MEDS ORDERED: DESVENLAFAXINE 100 MG PO SCH (09:00)
[2017-09-20] MEDS: ONDANSETRON HCL 4 MG/2 ML VIAL IV PUSH PRN (09:10)
--- NOTE | 2017-09-20 09:51 | HHI.PR ---
Subjective Remarks in no acute distress. however looks somewhat ill. still with diarrhea and nausea; had an episode of emesis earlier this morning. afebrile. denies abdominal pain. Objective Vitals Vital Signs Date Time Temp Pulse Resp B/P (MAP) Pulse Ox O2 Delivery O2 Flow Rate FiO2 09/20/17 04:00 98.1 73 17 160/78 (105) 95 09/20/17 04:00 75 09/20/17 00:00 97.9 88 21 179/87 (117) 97 09/19/17 20:00 114 09/19/17 20:00 98.2 98 22 172/83 (112) 97 09/19/17 17:15 98.2 95 20 147/67 (93) 97 09/19/17 17:12 09/19/17 15:30 86 13 146/70 (95) 98 Room Air 09/19/17 15:00 98.8 84 22 177/71 (106) 100 Room Air 09/19/17 13:00 98 17 165/116 (132) 98 Room Air 09/19/17 11:08 98.9 78 17 179/90 (119) I/O 09/19/17 09/19/17 09/19/17 09/20/17 09/20/17 09/20/17 07:00 15:00 23:00 07:00 15:00 23:00 Intake Total 1000 ml Balance 1000 ml Intake IV Total 1000 ml # Voids 2 # Bowel Movements 2 Result Diagram: 09/19/17 1120 09/20/17 0051 Objective Remarks GENERAL: in no acute distress. CARDIOVASCULAR: Regular rate and regular rhythm without murmurs, gallops, or rubs. RESPIRATORY: Clear to auscultation. Breath sounds equal bilaterally. No wheezes , rales, or rhonchi. GASTROINTESTINAL: Abdomen soft, non-tender, nondistended. Normal, active bowel sounds MUSCULOSKELETAL: Extremities without clubbing, cyanosis, or edema. NEURO: Alert & Oriented x4 to person, place, time, situation. Moves all ext x4 Medications and IVs Inpatient Medications Acetaminophen (Tylenol) 650 mg Q4H PRN PO FEVER; Start 09/19/17 at 14:15 Acetaminophen/ Hydrocodone Bitart ([place] 5-325 Mg) 1 tab Q4H PRN PO PAIN < 5; Start 09/19/17 at 14:30 Alprazolam (Xanax) 1 mg HS PRN PO ANXIETY; Start 09/19/17 at 14:15 Ceftriaxone Sodium 1000 mg/ Sodium Chloride 100 ml @ 200 mls/hr ONCE ONCE IV Last administered on 09/19/17at 14:47; Start 09/19/17 at 14:15; Stop 09/19/17 at 14:44; Status DC Enalaprilat (Vasotec Inj) 1.25 mg Q8HR PRN IV PUSH SBP> OR = 180, DBP> OR = 100 ; Start 09/19/17 at 15:15 Enoxaparin Sodium (Lovenox Inj) 40 mg Q24H SQ Last administered on 09/20/17at 08 :40; Start 09/20/17 at 09:00 Flumazenil (Romazicon Inj) 0.2 mg Q1M PRN IV PUSH SEE LABEL COMMENTS; Start at 14:30 Levothyroxine Sodium (Synthroid) 75 mcg DAILY@0600 PO Last administered on 09/20at 05:25; Start 09/20/17 at 06:00 Lorazepam (Ativan Inj) 2 mg Q15M PRN IV PUSH CIWA > 20; Start 09/19/17 at 14:30 Lorazepam (Ativan) 2 mg Q2H PRN PO CIWA 11-14; Start 09/19/17 at 14:30 Losartan Potassium (Cozaar) 100 mg DAILY PO Last administered on 09/20/17at 08: 40; Start 09/20/17 at 09:00 Morphine Sulfate (Morphine Inj) 2 mg Q4H PRN IV PUSH PAIN 6-10; Start 09/19/17 at 14:30 Multivitamins (Theragran) 1 tab DAILY PO ; Start 09/20/17 at 09:00; Stop at 09:00; Status DC Non-Formulary Medication 175 mcg DAILY PO ; Start 09/20/17 at 09:00; Stop at 09:00; Status DC Ondansetron HCl (Zofran Inj) 4 mg Q8HR PRN IV PUSH NAUSEA Last administered on 09/20/17at 09:10; Start 09/19/17 at 14:15 Pantoprazole Sodium (Protonix) 40 mg DAILY PO Last administered on 09/20/17at 08 :39; Start 09/20/17 at 09:00 Patient Own Medication PT OWN MED: Pancrelipase 3000/95... TIDPC PO ; Start at 18:30; Status Future Hold Potassium Chloride (KCl) 40 meq ONCE ONCE PO Last administered on 09/19/17at 12 :55; Start 09/19/17 at 12:15; Stop 09/19/17 at 12:16; Status DC Sodium Chloride 1,000 ml @ 100 mls/hr Q10H IV Last administered on 09/20/17at 03:42; Start 09/19/17 at 14:15 Thiamine HCl 100 mg/Sodium Chloride 101 ml @ 101 mls/hr DAILY IV Last administered on 09/20/17at 08:40; Start 09/19/17 at 14:30 A/P Problem List: (1) Hypokalemia ICD Code: E87.6 - Hypokalemia Status: Acute (2) ETOH abuse ICD Code: F10.10 - Alcohol abuse Status: Chronic (3) Hypocalcemia ICD Code: E83.51 - Hypocalcemia Status: Acute (4) Diarrhea ICD Code: R19.7 - Diarrhea, unspecified Status: Acute Assessment and Plan - gastroenteritis keep on full liquid diet and advance the diet as tolerated- continue supportive care with IV fluid, antiemetics and pain control check the stool for c-diff / C/S in light of recent antibiotic use -electrolyte abnormalities; hypokalemia, hypocalcemia/ metabolic acidosis- all resolved; lab error?? -alcohol abuse; counselled on drinking cessation. start on CIWA protocol/ thiamine and multivitamin -hypertension; resumed home meds- vasotec as needed- continue to monitor and adjust the regimen as needed. -history of pancreatitis- continue Pancrelipase -DVT prophylaxis with subq Lovenox -consulted PT. Discharge Planning still with diarrhea/ nausea and vomiting. not ready for discharge yet. Problem Qualifiers (1) Diarrhea: Qualified Codes: R19.7 - Diarrhea, unspecified Carl Pace MD Sep 20, 2017 09:50
[2017-09-20 09:52] LABS: AUTOMATED NEUTROPHIL # 2.5 TH/MM3 (1.8-7.7); BASOPHIL % 0.6 % (0.0-2.0); EOSINOPHIL % 0.5 % (0.0-4.0); HEMATOCRIT 35.6 % (35.0-46.0); LYMPH % 27.8 % (9.0-44.0); LYMPHOCYTE # 1.2 TH/MM3 (1.0-4.8); MEAN CELL VOLUME 100.6 FL (80.0-100.0); MEAN CORPUSCULAR HEMOGLOBIN 33.9 PG (27.0-34.0); MEAN CORPUSCULAR HGB CONC 33.7 % (32.0-36.0); MEAN PLATELET VOLUME 7.6 FL (7.0-11.0); MONO % 15.6 % (0.0-8.0); MONOCYTE # 0.7 TH/MM3 (0-0.9); NEUT % 55.5 % (16.0-70.0); PLATELET COUNT 183 TH/MM3 (150-450); RED BLOOD COUNT 3.54 MIL/MM3 (4.00-5.30); RED CELL DISTRIBUTION WIDTH 17.5 % (11.6-17.2); WHITE BLOOD COUNT 4.4 TH/MM3 (4.0-11.0)
[2017-09-20] MEDS: ALPRAZolam 1 MG TAB PO PRN (20:02)
[2017-09-21] VITALS (11 sets, daily range): BP systolic 140–183; BP diastolic 80–91; PULSE 62–105; RESP 17–21; TEMP 98.1–99.3; O2SAT 94–100
[2017-09-21] MEDS: LORazepam 2 MG/ML VIAL IV PUSH PRN ×2 (00:04→04:15)
[2017-09-21] MEDS: SODIUM CHLOR 0.9% 1000 ML INJ 1,000 ML IV SCH ×2 (04:15→16:15)
[2017-09-21] MEDS: ONDANSETRON HCL 4 MG/2 ML VIAL IV PUSH PRN ×2 (04:15→19:16)
[2017-09-21] MEDS: LEVOTHYROXINE SODIUM 100 MCG TAB PO SCH (05:40)
[2017-09-21] MEDS: LEVOTHYROXINE SODIUM 75 MCG TAB PO SCH (05:40)
[2017-09-21] MEDS: LOSARTAN 50 MG TAB PO SCH (08:35)
[2017-09-21] MEDS: THIAMINE INJ 100 MG in SODIUM CHLORIDE 0.9% INJ 100 ML IV SCH (08:35)
[2017-09-21] MEDS: ENOXAPARIN SODIUM 40 MG/0.4 ML SYRINGE SQ SCH (08:35)
[2017-09-21] MEDS: PANTOPRAZOLE SOD 40 MG DELAYED RELEASE TAB PO SCH (08:35)
[2017-09-21] MEDS: MULTIVITAMIN TAB PO SCH (08:35)
--- NOTE | 2017-09-21 09:32 | HHI.PR ---
Subjective Remarks in no distress. feels and looks much better today. no abdominal pain, nausea or vomiting. diarrhea has improved. no fever. wants to go home today. Objective Vitals Vital Signs Date Time Temp Pulse Resp B/P (MAP) Pulse Ox O2 Delivery O2 Flow Rate FiO2 09/21/17 08:33 98.4 75 18 183/91 (121) 98 09/21/17 06:00 98.2 62 17 140/80 (100) 98 09/21/17 04:00 Room Air 09/21/17 04:00 85 09/21/17 01:41 83 09/21/17 00:00 99.1 69 20 147/80 (102) 97 09/21/17 00:00 Room Air 09/20/17 21:40 99.0 68 18 150/82 (104) 98 09/20/17 20:00 84 09/20/17 20:00 Room Air 09/20/17 18:38 107 09/20/17 16:00 98.8 110 20 167/81 (109) 100 09/20/17 12:00 98.3 99 20 167/97 (120) 100 09/20/17 12:00 84 I/O 09/20/17 09/20/17 09/20/17 09/21/17 09/21/17 09/21/17 07:00 15:00 23:00 07:00 15:00 23:00 Intake Total 1000 ml 100 ml 3350 ml 2075 ml Output Total 1 ml Balance 1000 ml 100 ml 3349 ml 2075 ml Intake Oral 2350 ml 900 ml IV Total 1000 ml 100 ml 1000 ml 1175 ml Output Urine Total 1 ml # Voids 2 4 3 # Bowel Movements 2 6 1 Result Diagram: 09/20/17 0636 09/20/17 0051 Objective Remarks GENERAL: in no acute distress. CARDIOVASCULAR: Regular rate and regular rhythm without murmurs, gallops, or rubs. RESPIRATORY: Clear to auscultation. Breath sounds equal bilaterally. No wheezes , rales, or rhonchi. GASTROINTESTINAL: Abdomen soft, non-tender, nondistended. Normal, active bowel sounds MUSCULOSKELETAL: Extremities without clubbing, cyanosis, or edema. NEURO: Alert & Oriented x4 to person, place, time, situation. Moves all ext x4 Medications and IVs Inpatient Medications Acetaminophen (Tylenol) 650 mg Q4H PRN PO FEVER; Start 09/19/17 at 14:15 Acetaminophen/ Hydrocodone Bitart ([place] 5-325 Mg) 1 tab Q4H PRN PO PAIN < 5; Start 09/19/17 at 14:30 Alprazolam (Xanax) 1 mg HS PRN PO ANXIETY Last administered on 09/20/17at 20:02 ; Start 09/19/17 at 14:15 Ceftriaxone Sodium 1000 mg/ Sodium Chloride 100 ml @ 200 mls/hr ONCE ONCE IV Last administered on 09/19/17at 14:47; Start 09/19/17 at 14:15; Stop 09/19/17 at 14:44; Status DC Enalaprilat (Vasotec Inj) 1.25 mg Q8HR PRN IV PUSH SBP> OR = 180, DBP> OR = 100 ; Start 09/19/17 at 15:15 Enoxaparin Sodium (Lovenox Inj) 40 mg Q24H SQ Last administered on 09/21/17at 08 :35; Start 09/20/17 at 09:00 Flumazenil (Romazicon Inj) 0.2 mg Q1M PRN IV PUSH SEE LABEL COMMENTS; Start at 14:30 Levothyroxine Sodium (Synthroid) 75 mcg DAILY@0600 PO Last administered on 09/21at 05:40; Start 09/20/17 at 06:00 Lorazepam (Ativan Inj) 2 mg Q15M PRN IV PUSH CIWA > 20; Start 09/19/17 at 14:30 Lorazepam (Ativan) 2 mg Q2H PRN PO CIWA 11-14; Start 09/19/17 at 14:30 Losartan Potassium (Cozaar) 100 mg DAILY PO Last administered on 09/21/17at 08: 35; Start 09/20/17 at 09:00 Morphine Sulfate (Morphine Inj) 2 mg Q4H PRN IV PUSH PAIN 6-10; Start 09/19/17 at 14:30 Multivitamins (Theragran) 1 tab DAILY PO ; Start 09/20/17 at 09:00; Stop at 09:00; Status DC Non-Formulary Medication 175 mcg DAILY PO ; Start 09/20/17 at 09:00; Stop at 09:00; Status DC Ondansetron HCl (Zofran Inj) 4 mg Q8HR PRN IV PUSH NAUSEA Last administered on 09/21/17 04:15; Start 09/19/17 at 14:15 Pantoprazole Sodium (Protonix) 40 mg DAILY PO Last administered on 09/21/17at 08 :35; Start 09/20/17 at 09:00 Patient Own Medication PT OWN MED: Pancrelipase 3000/95... TIDPC PO ; Start at 18:30; Status Future Hold Potassium Chloride (KCl) 40 meq ONCE ONCE PO Last administered on 09/19/17at 12 :55; Start 09/19/17 at 12:15; Stop 09/19/17 at 12:16; Status DC Sodium Chloride 1,000 ml @ 100 mls/hr Q10H IV Last administered on 09/21/17at 04:15; Start 09/19/17 at 14:15 Thiamine HCl 100 mg/Sodium Chloride 101 ml @ 101 mls/hr DAILY IV Last administered on 09/21/17at 08:35; Start 09/19/17 at 14:30 A/P Problem List: (1) Hypokalemia ICD Code: E87.6 - Hypokalemia Status: Acute (2) ETOH abuse ICD Code: F10.10 - Alcohol abuse Status: Chronic (3) Hypocalcemia ICD Code: E83.51 - Hypocalcemia Status: Acute (4) Diarrhea ICD Code: R19.7 - Diarrhea, unspecified Status: Acute Assessment and Plan - gastroenteritis- improved. advance the diet.- continue supportive care with IV fluid, antiemetics and pain control -electrolyte abnormalities; hypokalemia, hypocalcemia/ metabolic acidosis- all resolved; lab error?? -alcohol abuse; counselled on drinking cessation. started on CIWA protocol/ thiamine and multivitamin -hypertension; resumed home meds- vasotec as needed- continue to monitor and adjust the regimen as needed. -history of pancreatitis- continue Pancrelipase -DVT prophylaxis with subq Lovenox -consulted PT. Discharge Planning dc home later today if tolerates the diet. see med list. f/u; pcp. Problem Qualifiers (1) Diarrhea: Qualified Codes: R19.7 - Diarrhea, unspecified Carl Pace MD Sep 21, 2017 09:32
[2017-09-21] MEDS ORDERED: VITA100T54 PO (09:34)
[2017-09-21] MEDS: ALPRAZolam 1 MG TAB PO PRN (20:32)
[2017-09-22] VITALS: BP 168/86; PULSE 72; RESP 22; TEMP 99.3; O2SAT 98
[2017-09-22] MEDS: SODIUM CHLOR 0.9% 1000 ML INJ 1,000 ML IV SCH ×2 (01:47→08:40)
[2017-09-22 03:29] VITALS: BP 168/74; PULSE 74; RESP 22; TEMP 98.5; O2SAT 94
[2017-09-22 04:00] VITALS: PULSE 73
[2017-09-22] MEDS: LEVOTHYROXINE SODIUM 100 MCG TAB PO SCH (05:27)
[2017-09-22] MEDS: LEVOTHYROXINE SODIUM 75 MCG TAB PO SCH (05:27)
[2017-09-22 07:52] VITALS: PULSE 64
[2017-09-22 08:00] VITALS: BP 167/91; PULSE 64; RESP 20; TEMP 98.4; O2SAT 98
[2017-09-22] MEDS: PANTOPRAZOLE SOD 40 MG DELAYED RELEASE TAB PO SCH (08:40)
[2017-09-22] MEDS: THIAMINE INJ 100 MG in SODIUM CHLORIDE 0.9% INJ 100 ML IV SCH (08:40)
[2017-09-22] MEDS: LOSARTAN 50 MG TAB PO SCH (08:40)
[2017-09-22] MEDS: MULTIVITAMIN TAB PO SCH (08:40)
[2017-09-22] MEDS: ENOXAPARIN SODIUM 40 MG/0.4 ML SYRINGE SQ SCH (08:40)
--- NOTE | 2017-09-22 09:14 | HHI.PR ---
Subjective Remarks in no acute disress. afebrile. had some diarrhea last night. mild abdominal pain. had some nausea earlier. Objective Vitals Vital Signs Date Time Temp Pulse Resp B/P (MAP) Pulse Ox O2 Delivery O2 Flow Rate FiO2 09/22/17 08:00 98.4 64 20 167/91 (116) 98 09/22/17 04:00 73 09/22/17 03:29 98.5 74 22 168/74 (105) 94 09/22/17 02:38 20 09/22/17 00:00 99.3 72 22 168/86 (113) 98 09/22/17 00:00 72 09/21/17 20:00 82 09/21/17 20:00 98.1 98 21 176/88 (117) 94 09/21/17 20:00 Room Air 09/21/17 16:35 99.3 83 18 154/83 (106) 100 09/21/17 16:00 82 09/21/17 12:30 98.6 92 18 153/86 (108) 99 09/21/17 12:00 105 I/O 09/21/17 09/21/17 09/21/17 09/22/17 09/22/17 09/22/17 07:00 15:00 23:00 07:00 15:00 23:00 Intake Total 2075 ml 340 ml 1000 ml 480 ml Output Total 3100 ml Balance 2075 ml 340 ml 1000 ml -2620 ml Intake Oral 900 ml 240 ml 480 ml IV Total 1175 ml 100 ml 1000 ml Output Urine Total 3100 ml # Voids 3 2 # Bowel Movements 1 2 1 Result Diagram: 09/20/17 0636 09/20/17 0051 Objective Remarks GENERAL: in no acute distress. CARDIOVASCULAR: Regular rate and regular rhythm without murmurs, gallops, or rubs. RESPIRATORY: Clear to auscultation. Breath sounds equal bilaterally. No wheezes , rales, or rhonchi. GASTROINTESTINAL: Abdomen soft, non-tender, nondistended. Normal, active bowel sounds MUSCULOSKELETAL: Extremities without clubbing, cyanosis, or edema. NEURO: Alert & Oriented x4 to person, place, time, situation. Moves all ext x4 Medications and IVs Inpatient Medications Acetaminophen (Tylenol) 650 mg Q4H PRN PO FEVER; Start 09/19/17 at 14:15 Acetaminophen/ Hydrocodone Bitart ([place] 5-325 Mg) 1 tab Q4H PRN PO PAIN < 5 Last administered on 09/22/17at 01:52; Start 09/19/17 at 14:30 Alprazolam (Xanax) 1 mg HS PRN PO ANXIETY Last administered on 09/21/17at 20:32 ; Start 09/19/17 at 14:15 Ceftriaxone Sodium 1000 mg/ Sodium Chloride 100 ml @ 200 mls/hr ONCE ONCE IV Last administered on 09/19/17at 14:47; Start 09/19/17 at 14:15; Stop 09/19/17 at 14:44; Status DC Enalaprilat (Vasotec Inj) 1.25 mg Q8HR PRN IV PUSH SBP> OR = 180, DBP> OR = 100 ; Start 09/19/17 at 15:15 Enoxaparin Sodium (Lovenox Inj) 40 mg Q24H SQ Last administered on 09/22/17at 08 :40; Start 09/20/17 at 09:00 Flumazenil (Romazicon Inj) 0.2 mg Q1M PRN IV PUSH SEE LABEL COMMENTS; Start at 14:30 Levothyroxine Sodium (Synthroid) 75 mcg DAILY@0600 PO Last administered on 09/22at 05:27; Start 09/20/17 at 06:00 Lorazepam (Ativan Inj) 2 mg Q15M PRN IV PUSH CIWA > 20; Start 09/19/17 at 14:30 Lorazepam (Ativan) 2 mg Q2H PRN PO CIWA 11-14; Start 09/19/17 at 14:30 Losartan Potassium (Cozaar) 100 mg DAILY PO Last administered on 09/22/17at 08: 40; Start 09/20/17 at 09:00 Morphine Sulfate (Morphine Inj) 2 mg Q4H PRN IV PUSH PAIN 6-10; Start 09/19/17 at 14:30 Multivitamins (Theragran) 1 tab DAILY PO ; Start 09/20/17 at 09:00; Stop at 09:00; Status DC Non-Formulary Medication 175 mcg DAILY PO ; Start 09/20/17 at 09:00; Stop at 09:00; Status DC Ondansetron HCl (Zofran Inj) 4 mg Q8HR PRN IV PUSH NAUSEA Last administered on 09/21/17at 19:16; Start 09/19/17 at 14:15 Pantoprazole Sodium (Protonix) 40 mg DAILY PO Last administered on 09/22/17at 08 :40; Start 09/20/17 at 09:00 Patient Own Medication PT OWN MED: Pancrelipase 3000/95... TIDPC PO ; Start at 18:30; Status Future Hold Potassium Chloride (KCl) 40 meq ONCE ONCE PO Last administered on 09/19/17at 12 :55; Start 09/19/17 at 12:15; Stop 09/19/17 at 12:16; Status DC Sodium Chloride 1,000 ml @ 100 mls/hr Q10H IV Last administered on 09/22/17at 08:40; Start 09/19/17 at 14:15 Thiamine HCl 100 mg/Sodium Chloride 101 ml @ 101 mls/hr DAILY IV Last administered on 09/22/17at 08:40; Start 09/19/17 at 14:30 A/P Problem List: (1) Hypokalemia ICD Code: E87.6 - Hypokalemia Status: Acute (2) ETOH abuse ICD Code: F10.10 - Alcohol abuse Status: Chronic (3) Hypocalcemia ICD Code: E83.51 - Hypocalcemia Status: Acute (4) Diarrhea ICD Code: R19.7 - Diarrhea, unspecified Status: Acute Assessment and Plan - gastroenteritis- improved. advance the diet as tolerated.- continue supportive care with IV fluid, antiemetics and pain control stool negative for C-diff. -electrolyte abnormalities; hypokalemia, hypocalcemia/ metabolic acidosis- all resolved; lab error?? -alcohol abuse; counselled on drinking cessation. started on CIWA protocol/ thiamine and multivitamin -hypertension; resumed home meds; will add amlodipine- vasotec as needed- continue to monitor and adjust the regimen as needed. -history of pancreatitis- continue Pancrelipase -DVT prophylaxis with subq Lovenox -consulted PT. Discharge Planning will keep the patient till this afternoon to ensure that she will tolerate the diet. will dc home later today if tolerates the diet- otherwise will consider GI w/u. Problem Qualifiers (1) Diarrhea: Qualified Codes: R19.7 - Diarrhea, unspecified Minouei,Mohammadreza MD Sep 22, 2017 09:14
[2017-09-22] MEDS ORDERED: amLODIPine BESYLATE 5 MG TAB PO SCH (09:15)
[2017-09-22] MEDS ORDERED: AMLO5TAB2 PO (09:15)
[2017-09-22 12:08] VITALS: BP 169/80; PULSE 80; PULSE 82; RESP 21; TEMP 97.6; O2SAT 100
== END 2017-09-22 16:55 | disposition home or self-care (01) | DRG 392 ==
LOC: NEPC 10:59 → NEDA 14:10 → N04B 17:19
PROVIDERS: ADMIT Hospitalist; ATTEND Hospitalist
DX: K52.9 Noninfective gastroenteritis and colitis, unspecified (principal); E87.2 Acidosis; K86.1 Other chronic pancreatitis; E83.51 Hypocalcemia; E87.6 Hypokalemia; I10 Essential (primary) hypertension; E03.9 Hypothyroidism, unspecified; K21.9 Gastro-esophageal reflux disease without esophagitis; I25.10 Atherosclerotic heart disease of native coronary artery without angina pectoris; M19.90 Unspecified osteoarthritis, unspecified site; H91.90 Unspecified hearing loss, unspecified ear; F10.10 Alcohol abuse, uncomplicated; F32.9 Major depressive disorder, single episode, unspecified; F41.9 Anxiety disorder, unspecified; Z85.3 Personal history of malignant neoplasm of breast; Z86.73 Personal history of transient ischemic attack (TIA), and cerebral infarction without residual deficits; Z88.2 Allergy status to sulfonamides; Z92.3 Personal history of irradiation
CPT/HCPCS: 80048; 80053; 80307; 81001; 83690; 83735; 84484; 85025; 85610; 85730; 87086; 87493; 87506; 93005; 96361; 96374; 96375; J0696; J1650; J2060; J2405; J3411; J7030; J7040

== ENCOUNTER 2017-09-26 11:40 | Emergency (ER) | payer BC, MEDICARE ==
[~2017-09-26 11:40] MED LIST changes: +AMLO5TAB2 PO; -HYDR-3366 PO; +VITA100T54 PO
[2017-09-26 11:47] VITALS: BP 166/79; PULSE 76; RESP 16; TEMP 99.2; O2SAT 100
[2017-09-26] MEDS ORDERED: SODIUM CHLOR 0.9% 1000 ML INJ 1,000 ML IV SCH (11:51)
--- NOTE | 2017-09-26 11:51 | PD ---
HPI Chief Complaint: Abdominal Pain Time Seen by Provider: 11:49 Travel History International Travel<30 days: No Contact w/Intl Traveler<30days: No History of Present Illness HPI 72-year-old female with PMH of acute pancreatitis, depression, chronic alcoholism, hypertension presents to the ED via EMS for evaluation of epigastric abdominal pain, nausea and vomiting after drinking "3 or 4 " liquor drinks last night. She states that she feels weak. She was recently admitted to the hospital for the same and discharged 09/22. She states that her caregiver noted that she was very tremulous today. EMS was called. PFSH Past Medical History Hx Anticoagulant Therapy: Yes Arthritis: Yes Asthma: No Autoimmune Disease: Yes (RA) Blood Disorders: No Anxiety: Yes Depression: Yes Heart Rhythm Problems: No Cancer: Yes (LEFT BREAST CA) Cardiovascular Problems: Yes High Cholesterol: No Chemotherapy: No Chest Pain: No Congestive Heart Failure: No COPD: No Cerebrovascular Accident: Yes (2016) Coronary Artery Disease: Yes Diabetes: No Diminished Hearing: Yes Endocrine: Yes (CHRONIC PANCREATITIS) Gastrointestinal Disorders: Yes (GASTRIC ULCERS) GERD: Yes Genitourinary: No Headaches: Yes Hiatal Hernia: No Heparin Induced Thrombocytopen: No Hypertension: Yes Immune Disorder: Yes Implanted Vascular Access Dvce: No Kidney Stones: No Musculoskeletal: Yes Neurologic: Yes Psychiatric: Yes Reproductive: No Respiratory: No Immunizations Current: Yes Migraines: Yes Pancreatitis: Yes Radiation Therapy: Yes Renal Failure: No Seizures: Yes (history of one) Sickle Cell Disease: No Sleep Apnea: No Thyroid Disease: Yes (HYPOTHYROID) Ulcer: Yes Menopausal: Yes : 2 Para: 1 Miscarriage: 1 Past Surgical History Abdominal Surgery: Yes (HYSTERECTOMY) AICD: No Appendectomy: Yes Arteriovenous Shunt: No Body Medical Devices: L hip hardware in place , PT IS NOT SURE Cardiac Surgery: No Cholecystectomy: Yes Ear Surgery: No Endocrine Surgery: No Eye Surgery: No Genitourinary Surgery: No Gynecologic Surgery: Yes (TOTAL HYSTERECTOMY) Hysterectomy: Yes Insulin Pump: No Joint Replacement: No Neurologic Surgery: No Oral Surgery: No Pacemaker: No Thoracic Surgery: No Other Surgery: Yes (COLDWELL/SINUS REPAIR, LEFT LUMPECTOMY) Social History Alcohol Use: Yes (DAILY LIQUOR/WINE USE) Tobacco Use: No Substance Use: No Allergies-Medications (Allergen,Severity, Reaction): Coded Allergies: Sulfa (Sulfonamide Antibiotics) (Unverified Allergy, Intermediate, rash, ) Reported Meds & Prescriptions Reported Meds & Active Scripts Active Amlodipine (Amlodipine Besylate) 5 Mg Tab 5 Mg PO DAILY Vitamin B-1 (Thiamine HCl) 100 Mg Tab 100 Mg PO DAILY 30 Days Zofran Odt (Ondansetron Odt) 4 Mg Tab 4 Mg SL Q6HR PRN Klor-Con M20 (Potassium Chloride Microencaps) 20 Meq Tab 20 Meq PO DAILY Hydrocodone-Acetaminophen 5-325 mg Tab 1 Tab PO Q6H PRN Thera/Beta-Carotene (Multiple Vitamin) 1 Tab Tab 1 Tab PO DAILY Nexium (Esomeprazole DR) 40 Mg Capdr 40 Mg PO DAILY Reported Creon (Pancrelipase) 3,000-9,500-15,000 Units Cap 1 Cap PO TIDPC Maxzide (Triamterene/HCTZ) 75-50 Mg Tab 1 Tab PO DAILY Losartan (Losartan Potassium) 100 Mg Tab 100 Mg PO DAILY Alprazolam 1 Mg Tab 1 Mg PO HS PRN Levothyroxine (Levothyroxine Sodium) 175 Mcg Tab 175 Mcg PO DAILY Pristiq 24 HR (Desvenlafaxine ER 24 HR) 100 Mg Tab 100 Mg PO DAILY Review of Systems Except as stated in HPI: all other systems reviewed are Neg Physical Exam Narrative GENERAL: Well-nourished, well-developed tremulous, anxious appearing white female in no acute distress. Alert and oriented 4. SKIN: Focused skin assessment warm/dry. HEAD: Normocephalic. Atraumatic. EYES: No scleral icterus. No injection or drainage. NECK: Supple, trachea midline. No JVD or lymphadenopathy. CARDIOVASCULAR: Regular rate and rhythm without murmurs, gallops, or rubs. RESPIRATORY: Breath sounds clear and equal bilaterally. No accessory muscle use. GASTROINTESTINAL: Abdomen soft, non-tender, nondistended. Active bowel sounds. MUSCULOSKELETAL: No cyanosis, or edema. BACK: Nontender without obvious deformity. No CVA tenderness. Data Data Last Documented VS Vital Signs Date Time Temp Pulse Resp B/P (MAP) Pulse Ox O2 Delivery O2 Flow Rate FiO2 09/26/17 17:02 76 18 178/85 (116) 99 09/26/17 16:59 Room Air 09/26/17 11:47 99.2 Orders Orders Complete Blood Count With Diff (09/26/17 11:51) Comprehensive Metabolic Panel (09/26/17 11:51) Lipase (09/26/17 11:51) Lactic Acid (09/26/17 11:51) Iv Access Insert/Monitor (09/26/17 11:51) Ecg Monitoring (09/26/17 11:51) Oximetry (09/26/17 11:51) Morphine Inj (Morphine Inj) (09/26/17 12:00) Ondansetron Inj (Zofran Inj) (09/26/17 12:00) Sodium Chlor 0.9% 1000 Ml Inj (Ns 1000 M (09/26/17 11:51) Sodium Chloride 0.9% Flush (Ns Flush) (09/26/17 12:00) Sodium Chlorid 0.9% 500 Ml Inj (Ns 500 M (09/26/17 13:30) Lactic Acid (09/26/17 13:26) Ed Discharge Order (09/26/17 14:57) Lorazepam (Ativan) (09/26/17 16:00) Labs Laboratory Tests Test 09/26/17 12:08 09/26/17 14:15 White Blood Count 7.0 TH/MM3 Red Blood Count 4.09 MIL/MM3 Hemoglobin 14.0 GM/DL Hematocrit 40.0 % Mean Corpuscular Volume 97.8 FL Mean Corpuscular Hemoglobin 34.3 PG Mean Corpuscular Hemoglobin Concent 35.1 % Red Cell Distribution Width 16.4 % Platelet Count 289 TH/MM3 Mean Platelet Volume 7.4 FL Neutrophils (%) (Auto) 60.1 % Lymphocytes (%) (Auto) 25.8 % Monocytes (%) (Auto) 13.5 % Eosinophils (%) (Auto) 0.2 % Basophils (%) (Auto) 0.4 % Neutrophils # (Auto) 4.2 TH/MM3 Lymphocytes # (Auto) 1.8 TH/MM3 Monocytes # (Auto) 0.9 TH/MM3 Eosinophils # (Auto) 0.0 TH/MM3 Basophils # (Auto) 0.0 TH/MM3 CBC Comment DIFF FINAL Differential Comment Blood Urea Nitrogen 14 MG/DL Creatinine 0.81 MG/DL Random Glucose 86 MG/DL Total Protein 8.0 GM/DL Albumin 3.6 GM/DL Calcium Level 9.6 MG/DL Alkaline Phosphatase 99 U/L Aspartate Amino Transf (AST/SGOT) 56 U/L Alanine Aminotransferase (ALT/SGPT) 34 U/L Total Bilirubin 0.6 MG/DL Sodium Level 136 MEQ/L Potassium Level 3.8 MEQ/L Chloride Level 102 MEQ/L Carbon Dioxide Level 22.2 MEQ/L Anion Gap 12 MEQ/L Estimat Glomerular Filtration Rate 70 ML/MIN Lactic Acid Level 2.4 mmol/L 1.6 mmol/L Lipase 560 U/L MDM Medical Decision Making Medical Screen Exam Complete: Yes Emergency Medical Condition: Yes Differential Diagnosis Pancreatitis versus alcohol withdrawal versus anxiety versus other Narrative Course 72-year-old female with PMH of acute pancreatitis, depression, chronic alcoholism, hypertension presents to the ED via EMS for evaluation of epigastric abdominal pain, nausea and vomiting after drinking "3 or 4 " liquor drinks last night. She states that she feels weak. She was recently admitted to the hospital for the same and discharged 09/22. She states that her caregiver noted that she was very tremulous today. Patient temp 99.2, pulse 76 , BP 166/79, O2 100% on room air on presentation. On physical exam the patient is tremulous, anxious appearing. She has epigastric tenderness to palpation but the exam is otherwise unremarkable. IV was established. Patient was administered 1 L normal saline, 4 mg Zofran, 4 mg morphine IV. CBC is unremarkable. CMP reveals lactic acid of 2.4 and lipase of 560. Patient was administered a second liter of normal saline. Lactic acid 1.6 on recheck. BP 178/85 on recheck. The patient was prescribed pain and nausea medications that last discharge. She is also prescribed alprazolam 3 times daily. She states that she has not been taking these medications as they were prescribed. Caregiver at bedside states that the patient will not allow her to administer medications. I discussed the importance of compliance with the patient. I advised her to follow-up with her primary care provider for further guidance regarding chronic alcohol abuse and detox. Upon discharge the patient was placed in wheelchair and her animal caretaker supervisor wheeled her out of the emergency department. Shortly after the animal caretaker supervisor states that the patient became very anxious, shaky and was brought back to the ED. The patient was administered 2 mg of Ativan by mouth. I had a lengthy discussion with the patient's caregiver and her niece at bedside regarding the patient's noncompliance, chronic alcohol abuse, likely alcohol withdrawal. She was provided with outpatient resources from the psychiatric department. She was instructed to follow-up with [facility] for detox and outpatient rehabilitation. The patient and her family members indicated understanding the instructions and agreeable to the care plan. The patient is stable discharged home. Diagnosis Primary Impression: Recurrent pancreatitis Referrals: Primary Care Physician [facility] Patient Instructions: General Instructions, Pancreatitis (ED) Additional Instructions: STOP DRINKING ALCOHOL! Take medications that you are previously prescribed at home as needed for continued symptoms. Follow-up with your primary care provider and [facility]. Return to the ED for worsening symptoms or any urgent or emergent medical condition. Disposition: 01 DISCHARGE HOME Condition: Stable Holly Alexandra Sep 26, 2017 11:51
[2017-09-26] MEDS ORDERED: MORPHINE SULFATE 4 MG/ML INJ IV PUSH ONE (12:00)
[2017-09-26] MEDS ORDERED: SODIUM CHLORIDE 0.9% FLUSH 10 ML FLUSH IV FLUSH PRN (12:00)
[2017-09-26] MEDS ORDERED: ONDANSETRON HCL 4 MG/2 ML VIAL IVP ONE (12:00)
[2017-09-26 12:24] LABS: AUTOMATED NEUTROPHIL # 4.2 TH/MM3 (1.8-7.7); BASOPHIL % 0.4 % (0.0-2.0); EOSINOPHIL % 0.2 % (0.0-4.0); LYMPH % 25.8 % (9.0-44.0); LYMPHOCYTE # 1.8 TH/MM3 (1.0-4.8); MEAN CELL VOLUME 97.8 FL (80.0-100.0); MEAN CORPUSCULAR HEMOGLOBIN 34.3 PG (27.0-34.0); MEAN CORPUSCULAR HGB CONC 35.1 % (32.0-36.0); MEAN PLATELET VOLUME 7.4 FL (7.0-11.0); MONO % 13.5 % (0.0-8.0); MONOCYTE # 0.9 TH/MM3 (0-0.9); NEUT % 60.1 % (16.0-70.0); PLATELET COUNT 289 TH/MM3 (150-450); RED BLOOD COUNT 4.09 MIL/MM3 (4.00-5.30); RED CELL DISTRIBUTION WIDTH 16.4 % (11.6-17.2)
[2017-09-26 12:43] LABS: ALBUMIN 3.6 GM/DL (3.4-5.0); AST (GOT) 56 U/L (15-37); BICARBONATE 22.2 MEQ/L (21.0-32.0); BLOOD UREA NITROGEN 14 MG/DL (7-18); CALCIUM 9.6 MG/DL (8.5-10.1); CHLORIDE 102 MEQ/L (98-107); CREATININE 0.81 MG/DL (0.50-1.00); GLOMERULAR FILTRATION RATE 70 ML/MIN (>89); GLUCOSE,RANDOM 86 MG/DL (74-106); LIPASE 560 U/L (73-393); SODIUM (NA) 136 MEQ/L (136-145)
[2017-09-26 12:44] LABS: ALT (GPT) 34 U/L (10-53)
[2017-09-26 12:46] LABS: ALKALINE PHOSPHATASE 99 U/L (45-117); TOTAL BILIRUBIN ADULT 0.6 MG/DL (0.2-1.0)
[2017-09-26 12:48] VITALS: O2SAT 97
[2017-09-26] MEDS ORDERED: SODIUM CHLORID 0.9% 500 ML INJ 500 ML IV ONE (13:30)
[2017-09-26 14:15] VITALS: BP 189/88; PULSE 82; RESP 16; O2SAT 100
[2017-09-26] MEDS ORDERED: LORazepam 2 MG TAB PO ONE (16:00)
[2017-09-26 16:59] VITALS: BP 178/85; PULSE 72; RESP 16; O2SAT 99
[2017-09-26 17:02] VITALS: BP 178/85
== END 2017-09-26 17:29 | disposition home or self-care (01) ==
LOC: NEPE 11:40
DX: K86.1 Other chronic pancreatitis (principal); E03.9 Hypothyroidism, unspecified; I10 Essential (primary) hypertension; I25.10 Atherosclerotic heart disease of native coronary artery without angina pectoris; K21.9 Gastro-esophageal reflux disease without esophagitis; F32.9 Major depressive disorder, single episode, unspecified; F10.20 Alcohol dependence, uncomplicated
CPT/HCPCS: 80053; 83605; 83690; 85025; 96361; 96374; 96375; 99284; J2270; J2405; J7030; J7040

== ENCOUNTER 2017-09-30 10:28 | Emergency (ER) | payer SELFPAY ==
[~2017-09-30] VITALS: Ht 165.1 cm; Wt 65.0 kg
[2017-09-30 10:33] VITALS: BP 187/99; PULSE 97; RESP 19; TEMP 99.6; O2SAT 99
[2017-09-30] MEDS ORDERED: SODIUM CHLOR 0.9% 1000 ML INJ 1,000 ML IV SCH (10:37)
[2017-09-30 10:43] VITALS: BP 187/90; PULSE 82; RESP 18; O2SAT 99
--- NOTE | 2017-09-30 10:43 | PD ---
HPI Chief Complaint: Abdominal Pain Time Seen by Provider: 10:32 Travel History International Travel<30 days: No Contact w/Intl Traveler<30days: No History of Present Illness HPI This 72-year-old woman, presents emergency department with recurrent abdominal pain. She is a history of the same. His chronic pancreatitis and gets it every time she drinks. She drinks a couple times a week. She drank last night. She denies vomiting down pain since this morning. She states she gets tremulous every time she "gets sick". This is been the same as well. Denies any other new or worsening symptoms. Symptoms been moderate, constant since onset, without aggravating or alleviating factors. History Past Medical History Narrative Medical 1. Chronic pancreatitis. 2. Arthritis. 3. Anxiety. 4. Depression. 5. Atrial fibrillation history in the past. 6. History of left breast cancer. 7. Gastric ulcer. 8. GERD. 9. Hypertension. 10.History of fluid retention in the past. 11.Hypothyroidism. 12.History of lysis of adhesions. 13.Sinus surgery. 14. ETOH abuse 15. TIA Aug 2016 16. Recent psych admit 2016 17. Fall with left hip fracture October 2016 18. TIA/CVA Menopausal: Yes : 2 Para: 1 Social History Alcohol Use: Yes (DAILY LIQUOR/WINE USE) Tobacco Use: No Allergies-Medications (Allergen,Severity, Reaction): Coded Allergies: Sulfa (Sulfonamide Antibiotics) (Unverified Allergy, Intermediate, rash, ) Reported Meds & Prescriptions Reported Meds & Active Scripts Active Ondansetron Odt 4 Mg Tab 4 Mg SL Q8HR PRN Amlodipine (Amlodipine Besylate) 5 Mg Tab 5 Mg PO DAILY Vitamin B-1 (Thiamine HCl) 100 Mg Tab 100 Mg PO DAILY 30 Days Zofran Odt (Ondansetron Odt) 4 Mg Tab 4 Mg SL Q6HR PRN Klor-Con M20 (Potassium Chloride Microencaps) 20 Meq Tab 20 Meq PO DAILY Hydrocodone-Acetaminophen 5-325 mg Tab 1 Tab PO Q6H PRN Thera/Beta-Carotene (Multiple Vitamin) 1 Tab Tab 1 Tab PO DAILY Nexium (Esomeprazole DR) 40 Mg Capdr 40 Mg PO DAILY Reported Creon (Pancrelipase) 3,000-9,500-15,000 Units Cap 1 Cap PO TIDPC Maxzide (Triamterene/HCTZ) 75-50 Mg Tab 1 Tab PO DAILY Losartan (Losartan Potassium) 100 Mg Tab 100 Mg PO DAILY Alprazolam 1 Mg Tab 1 Mg PO HS PRN Levothyroxine (Levothyroxine Sodium) 175 Mcg Tab 175 Mcg PO DAILY Pristiq 24 HR (Desvenlafaxine ER 24 HR) 100 Mg Tab 100 Mg PO DAILY Review of Systems Except as stated in HPI: all other systems reviewed are Neg Physical Exam Narrative GENERAL: Well-appearing 72-year-old woman, no acute distress. Generally tremulous. SKIN: Focused skin assessment warm/dry. HEAD: Atraumatic. Normocephalic. EYES: Pupils equal and round. No scleral icterus. No injection or drainage. ENT: No nasal bleeding or discharge. Mucous membranes pink and moist. NECK: Trachea midline. No JVD. CARDIOVASCULAR: Regular rate and rhythm. No murmur appreciated. RESPIRATORY: No accessory muscle use. Clear to auscultation. Breath sounds equal bilaterally. GASTROINTESTINAL: Abdomen soft, non-tender, nondistended. Hepatic and splenic margins not palpable. MUSCULOSKELETAL: No obvious deformities. No clubbing. No cyanosis. No edema. Data Data Last Documented VS Vital Signs Date Time Temp Pulse Resp B/P (MAP) Pulse Ox O2 Delivery O2 Flow Rate FiO2 09/30/17 12:03 165/81 (109) 09/30/17 10:43 82 18 99 Room Air 09/30/17 10:33 99.6 Orders Orders Complete Blood Count With Diff (09/30/17 10:37) Comprehensive Metabolic Panel (09/30/17 10:37) Lipase (09/30/17 10:37) Iv Access Insert/Monitor (09/30/17 10:37) Ondansetron Inj (Zofran Inj) (09/30/17 10:45) Sodium Chlor 0.9% 1000 Ml Inj (Ns 1000 M (09/30/17 10:37) Sodium Chloride 0.9% Flush (Ns Flush) (09/30/17 10:45) Lorazepam Inj (Ativan Inj) (09/30/17 10:45) Diet Regular Basic (09/30/17 Lunch) Ed Discharge Order (09/30/17 13:00) Labs Laboratory Tests Test 09/30/17 10:40 White Blood Count 8.2 TH/MM3 Red Blood Count 3.85 MIL/MM3 Hemoglobin 13.3 GM/DL Hematocrit 37.6 % Mean Corpuscular Volume 97.6 FL Mean Corpuscular Hemoglobin 34.4 PG Mean Corpuscular Hemoglobin Concent 35.3 % Red Cell Distribution Width 16.1 % Platelet Count 357 TH/MM3 Mean Platelet Volume 7.2 FL Neutrophils (%) (Auto) 71.0 % Lymphocytes (%) (Auto) 18.7 % Monocytes (%) (Auto) 9.6 % Eosinophils (%) (Auto) 0.4 % Basophils (%) (Auto) 0.3 % Neutrophils # (Auto) 5.8 TH/MM3 Lymphocytes # (Auto) 1.5 TH/MM3 Monocytes # (Auto) 0.8 TH/MM3 Eosinophils # (Auto) 0.0 TH/MM3 Basophils # (Auto) 0.0 TH/MM3 CBC Comment DIFF FINAL Differential Comment Blood Urea Nitrogen 16 MG/DL Creatinine 0.82 MG/DL Random Glucose 76 MG/DL Total Protein 8.2 GM/DL Albumin 3.5 GM/DL Calcium Level 8.6 MG/DL Alkaline Phosphatase 100 U/L Aspartate Amino Transf (AST/SGOT) 90 U/L Alanine Aminotransferase (ALT/SGPT) 43 U/L Total Bilirubin 0.6 MG/DL Sodium Level 133 MEQ/L Potassium Level 5.3 MEQ/L Chloride Level 102 MEQ/L Carbon Dioxide Level 16.3 MEQ/L Anion Gap 15 MEQ/L Estimat Glomerular Filtration Rate 69 ML/MIN Lipase 483 U/L [facility] Medical Decision Making Medical Screen Exam Complete: Yes Emergency Medical Condition: Yes Interpretation(s) LABS: CBC is unremarkable. CMP shows mild elevated lipase, mild acidosis. Differential Diagnosis Alcoholism, chronic pancreatitis, gastritis, vomiting, withdrawal, other Narrative Course Medical decision making 72-year-old woman presents emergency department with dental pain and vomiting. She is a history of alcoholism, recurrent pancreatitis, and this seems to be the same. I have seen her several times in the past as well. She comes in a couple times a month. She looks well. She is always tremulous. Her vital signs do not show any evidence of severe alcohol withdrawal. We will give her a dose of Zofran, Ativan, IV fluids. Will check basic labs. Otherwise outpatient follow-up. FINAL: A little bit of acidosis is likely alcoholic ketoacidosis. Patient much improved after medications. I think she needs any further evaluation. We will order dietary for her, discharged with oral Zofran. Diagnosis Primary Impression: Alcoholism Additional Impression: Nausea & vomiting Additional Instructions: Use Zofran as needed for nausea or vomiting. Avoid alcohol use. Follow-up with your primary doctor. Return to the emergency department for any new or worsening symptoms. Med/Other Pt SpecificInfo: Prescription(s) given Scripts Ondansetron Odt (Ondansetron Odt) 4 Mg Tab 4 MG SL Q8HR Y for Nausea/Vomiting, #20 TAB 0 Refills Prov: Juan Arellano MD 09/30/17 Disposition: 01 DISCHARGE HOME Condition: Stable Juan Arellano MD Sep 30, 2017 10:42
[2017-09-30] MEDS ORDERED: ONDANSETRON HCL 4 MG/2 ML VIAL IVP ONE (10:45)
[2017-09-30] MEDS ORDERED: LORazepam 2 MG/ML VIAL IV PUSH ONE (10:45)
[2017-09-30] MEDS ORDERED: SODIUM CHLORIDE 0.9% FLUSH 10 ML FLUSH IV FLUSH PRN (10:45)
[2017-09-30 11:07] LABS: AUTOMATED NEUTROPHIL # 5.8 TH/MM3 (1.8-7.7); BASOPHIL % 0.3 % (0.0-2.0); EOSINOPHIL % 0.4 % (0.0-4.0); HEMATOCRIT 37.6 % (35.0-46.0); HEMOGLOBIN 13.3 GM/DL (11.6-15.3); LYMPH % 18.7 % (9.0-44.0); LYMPHOCYTE # 1.5 TH/MM3 (1.0-4.8); MEAN CELL VOLUME 97.6 FL (80.0-100.0); MEAN CORPUSCULAR HEMOGLOBIN 34.4 PG (27.0-34.0); MEAN CORPUSCULAR HGB CONC 35.3 % (32.0-36.0); MEAN PLATELET VOLUME 7.2 FL (7.0-11.0); MONO % 9.6 % (0.0-8.0); MONOCYTE # 0.8 TH/MM3 (0-0.9); PLATELET COUNT 357 TH/MM3 (150-450); RED BLOOD COUNT 3.85 MIL/MM3 (4.00-5.30); RED CELL DISTRIBUTION WIDTH 16.1 % (11.6-17.2); WHITE BLOOD COUNT 8.2 TH/MM3 (4.0-11.0)
[2017-09-30 11:19] LABS: ALKALINE PHOSPHATASE 100 U/L (45-117); TOTAL BILIRUBIN ADULT 0.6 MG/DL (0.2-1.0); TOTAL PROTEIN 8.2 GM/DL (6.4-8.2)
[2017-09-30 11:40] LABS: ALBUMIN 3.5 GM/DL (3.4-5.0); ALT (GPT) 43 U/L (10-53); AST (GOT) 90 U/L (15-37); BICARBONATE 16.3 MEQ/L (21.0-32.0); BLOOD UREA NITROGEN 16 MG/DL (7-18); CALCIUM 8.6 MG/DL (8.5-10.1); CHLORIDE 102 MEQ/L (98-107); CREATININE 0.82 MG/DL (0.50-1.00); GLOMERULAR FILTRATION RATE 69 ML/MIN (>89); GLUCOSE,RANDOM 76 MG/DL (74-106); SODIUM (NA) 133 MEQ/L (136-145)
[2017-09-30 12:03] VITALS: BP 165/81
[2017-09-30] MEDS ORDERED: ONDA4TAB7 SL (12:13)
[2017-09-30 14:14] VITALS: BP 161/78
== END 2017-09-30 14:16 | disposition home or self-care (01) ==
LOC: NEPC 10:28
DX: F10.20 Alcohol dependence, uncomplicated (principal); K86.1 Other chronic pancreatitis; E03.9 Hypothyroidism, unspecified; F32.9 Major depressive disorder, single episode, unspecified; F41.9 Anxiety disorder, unspecified; I10 Essential (primary) hypertension; I48.91 Unspecified atrial fibrillation; K21.9 Gastro-esophageal reflux disease without esophagitis; Z86.73 Personal history of transient ischemic attack (TIA), and cerebral infarction without residual deficits
CPT/HCPCS: 80053; 83690; 85025; 96361; 96374; 96375; 99284; J2060; J2405; J7030

== ENCOUNTER 2017-10-06 10:14 | Inpatient (IN) | payer MEDICARE ==
[~2017-10-06] VITALS: Ht 165.1 cm; Wt 67.7 kg
[~2017-10-06 10:14] MED LIST changes: +ONDA4TAB7 SL
[2017-10-06 10:36] VITALS: BP 129/64; PULSE 85; RESP 18; TEMP 98.7; O2SAT 97
--- NOTE | 2017-10-06 10:57 | PD ---
HPI Chief Complaint: Fall Time Seen by Provider: 10:52 Travel History International Travel<30 days: No Contact w/Intl Traveler<30days: No Traveled to known affect area: No History of Present Illness HPI 72-year-old female patient with history of alcoholism, hypertension, hypothyroidism, presents to the ER today because she states that she fell this morning in her kitchen, is not sure what happened, thinks she may have slipped on water but is not sure as well. She denies any loss of consciousness but states that she did hit her head. She complains of right hip pain. She denies any chest pains, shortness of breath, or other symptoms. She states that she has not been feeling ill. Modifying Factors: None Associated Signs & Symptoms: Fall, right hip injury Risk Factors: Alcoholism PFSH Past Medical History Hx Anticoagulant Therapy: Yes Arthritis: Yes Asthma: No Autoimmune Disease: Yes (RA) Blood Disorders: No Anxiety: Yes Depression: Yes Heart Rhythm Problems: No Cancer: Yes (LEFT BREAST CA) Cardiovascular Problems: Yes High Cholesterol: No Chemotherapy: No Chest Pain: No Congestive Heart Failure: No COPD: No Cerebrovascular Accident: Yes (2016) Coronary Artery Disease: Yes Diabetes: No Diminished Hearing: Yes Endocrine: Yes (CHRONIC PANCREATITIS) Gastrointestinal Disorders: Yes (GASTRIC ULCERS) GERD: Yes Genitourinary: No Headaches: Yes Hiatal Hernia: No Heparin Induced Thrombocytopen: No Hypertension: Yes Immune Disorder: Yes Implanted Vascular Access Dvce: No Kidney Stones: No Medical other: Yes (ALCOHOLISM) Musculoskeletal: Yes Neurologic: Yes Psychiatric: Yes Reproductive: No Respiratory: No Immunizations Current: Yes Migraines: Yes Pancreatitis: Yes Radiation Therapy: Yes Renal Failure: No Seizures: Yes (history of one) Sickle Cell Disease: No Sleep Apnea: No Thyroid Disease: Yes (HYPOTHYROID) Ulcer: Yes Tetanus Vaccination: > 5 Years Influenza Vaccination: Yes Menopausal: Yes : 2 Para: 1 Miscarriage: 1 Past Surgical History Abdominal Surgery: Yes (HYSTERECTOMY) AICD: No Appendectomy: Yes Arteriovenous Shunt: No Body Medical Devices: L hip hardware in place , PT IS NOT SURE Cardiac Surgery: No Cholecystectomy: Yes Ear Surgery: No Endocrine Surgery: No Eye Surgery: No Genitourinary Surgery: No Gynecologic Surgery: Yes (TOTAL HYSTERECTOMY) Hysterectomy: Yes Insulin Pump: No Joint Replacement: No Neurologic Surgery: No Oral Surgery: No Pacemaker: No Thoracic Surgery: No Other Surgery: Yes (COLDWELL/SINUS REPAIR, LEFT LUMPECTOMY) Social History Alcohol Use: Yes (DAILY LIQUOR/WINE USE) Tobacco Use: No Substance Use: No Allergies-Medications (Allergen,Severity, Reaction): Coded Allergies: Sulfa (Sulfonamide Antibiotics) (Unverified Allergy, Intermediate, rash, ) Reported Meds & Prescriptions Reported Meds & Active Scripts Active Amlodipine (Amlodipine Besylate) 5 Mg Tab 5 Mg PO DAILY Vitamin B-1 (Thiamine HCl) 100 Mg Tab 100 Mg PO DAILY 30 Days Klor-Con M20 (Potassium Chloride Microencaps) 20 Meq Tab 20 Meq PO DAILY Thera/Beta-Carotene (Multiple Vitamin) 1 Tab Tab 1 Tab PO DAILY Nexium (Esomeprazole DR) 40 Mg Capdr 40 Mg PO DAILY Reported Creon (Pancrelipase) 3,000-9,500-15,000 Units Cap 1 Cap PO TIDPC Maxzide (Triamterene/HCTZ) 75-50 Mg Tab 1 Tab PO DAILY Losartan (Losartan Potassium) 100 Mg Tab 100 Mg PO DAILY Alprazolam 1 Mg Tab 1 Mg PO HS PRN Levothyroxine (Levothyroxine Sodium) 175 Mcg Tab 175 Mcg PO DAILY Pristiq 24 HR (Desvenlafaxine ER 24 HR) 100 Mg Tab 100 Mg PO DAILY Review of Systems Except as stated in HPI: all other systems reviewed are Neg Physical Exam Narrative GENERAL: Well-developed elderly white female patient currently in mild distress. Awake and oriented 3. SKIN: Focused skin assessment warm/dry. HEAD: Atraumatic. Normocephalic. EYES: Pupils equal and round. No scleral icterus. No injection or drainage. ENT: No nasal bleeding or discharge. Mucous membranes pink and moist. NECK: Trachea midline. No JVD. CARDIOVASCULAR: Regular rate and rhythm. No murmur appreciated. RESPIRATORY: No accessory muscle use. Clear to auscultation. Breath sounds equal bilaterally. GASTROINTESTINAL: Abdomen soft, non-tender, nondistended. Hepatic and splenic margins not palpable. Pelvis: There is tenderness on palpation of the right hip with notable deformities. Decreased range of motion of the right hip secondary to pain. Neurovascularly intact below injury. MUSCULOSKELETAL: No obvious deformities. No clubbing. No cyanosis. No edema. NEUROLOGICAL: Awake and alert. No obvious cranial nerve deficits. Motor grossly within normal limits. Normal speech. PSYCHIATRIC: Appropriate mood and affect; insight and judgment normal. Data Data Last Documented VS Vital Signs Date Time Temp Pulse Resp B/P (MAP) Pulse Ox O2 Delivery O2 Flow Rate FiO2 10/06/17 11:32 79 18 131/65 (87) 97 Room Air 10/06/17 10:36 98.7 Orders Orders Electrocardiogram (10/06/17 10:52) Complete Blood Count With Diff (10/06/17 10:52) Comprehensive Metabolic Panel (10/06/17 10:52) Ckmb (Isoenzyme) Profile (10/06/17 10:52) Troponin I (10/06/17 10:52) Act Partial Throm Time (Ptt) (10/06/17 10:52) Prothrombin Time / Inr (Pt) (10/06/17 10:52) Urinalysis - C+S If Indicated (10/06/17 10:52) Chest, Single Ap (10/06/17 10:52) Ct Brain W/O Iv Contrast(Rout) (10/06/17 10:52) Ct Cerv Spine W/O Contrast (10/06/17 10:52) Ecg Monitoring (10/06/17 10:52) Iv Access Insert/Monitor (10/06/17 10:52) Oximetry (10/06/17 10:52) Ondansetron Inj (Zofran Inj) (10/06/17 11:00) Sodium Chloride 0.9% Flush (Ns Flush) (10/06/17 11:00) Hip, Uni(Ap&Lat) W Ap Pelvis (10/06/17 10:52) Alcohol (Ethanol) (10/06/17 10:59) Morphine Inj (Morphine Inj) (10/06/17 12:45) Admit Order (Ed Use Only) (10/06/17 13:16) Consult Orthopedic (10/06/17 ) Labs Laboratory Tests Test 10/06/17 11:00 White Blood Count 5.8 TH/MM3 Red Blood Count 3.56 MIL/MM3 Hemoglobin 12.0 GM/DL Hematocrit 35.5 % Mean Corpuscular Volume 99.6 FL Mean Corpuscular Hemoglobin 33.7 PG Mean Corpuscular Hemoglobin Concent 33.8 % Red Cell Distribution Width 16.7 % Platelet Count 315 TH/MM3 Mean Platelet Volume 6.6 FL Neutrophils (%) (Auto) 73.6 % Lymphocytes (%) (Auto) 21.3 % Monocytes (%) (Auto) 4.6 % Eosinophils (%) (Auto) 0.1 % Basophils (%) (Auto) 0.4 % Neutrophils # (Auto) 4.3 TH/MM3 Lymphocytes # (Auto) 1.2 TH/MM3 Monocytes # (Auto) 0.3 TH/MM3 Eosinophils # (Auto) 0.0 TH/MM3 Basophils # (Auto) 0.0 TH/MM3 CBC Comment DIFF FINAL Differential Comment Prothrombin Time 11.9 SEC Prothromb Time International Ratio 1.2 RATIO Activated Partial Thromboplast Time 24.5 SEC Blood Urea Nitrogen 11 MG/DL Creatinine 0.73 MG/DL Random Glucose 120 MG/DL Total Protein 7.1 GM/DL Albumin 3.1 GM/DL Calcium Level 7.6 MG/DL Alkaline Phosphatase 81 U/L Aspartate Amino Transf (AST/SGOT) 49 U/L Alanine Aminotransferase (ALT/SGPT) 29 U/L Total Bilirubin 0.2 MG/DL Sodium Level 139 MEQ/L Potassium Level 3.6 MEQ/L Chloride Level 108 MEQ/L Carbon Dioxide Level 18.2 MEQ/L Anion Gap 13 MEQ/L Estimat Glomerular Filtration Rate 79 ML/MIN Total Creatine Kinase 59 U/L Troponin I LESS THAN 0.02 NG/ML Ethyl Alcohol Level 228 MG/DL MDM Medical Decision Making Medical Screen Exam Complete: Yes Emergency Medical Condition: Yes Medical Record Reviewed: Yes Interpretation(s) Laboratory Tests Test 10/06/17 11:00 Red Blood Count 3.56 MIL/MM3 (4.00-5.30) Mean Platelet Volume 6.6 FL (7.0-11.0) Neutrophils (%) (Auto) 73.6 % (16.0-70.0) Prothrombin Time 11.9 SEC (9.8-11.6) Random Glucose 120 MG/DL (74-106) Albumin 3.1 GM/DL (3.4-5.0) Calcium Level 7.6 MG/DL (8.5-10.1) Aspartate Amino Transf (AST/SGOT) 49 U/L (15-37) Chloride Level 108 MEQ/L (98-107) Carbon Dioxide Level 18.2 MEQ/L (21.0-32.0) Estimat Glomerular Filtration Rate 79 ML/MIN (>89) Troponin I LESS THAN 0.02 NG/ML Ethyl Alcohol Level 228 MG/DL (0-5) Last 24 hours Impressions Hip and Pelvis X-Ray 10/06/17 105 Signed Impressions: Service Date/Time: Friday, October 06, 2017 11:26 - CONCLUSION: Mildly displaced intertrochanteric fracture. Mohinder Apodaca MD Head CT 10/06/17 1052 Signed Impressions: Service Date/Time: Friday, October 06, 2017 12:18 - CONCLUSION: 1. No hemorrhage. 2. Nonspecific white matter changes. 3. Facial soft tissue swelling. Mohinder Apodaca MD Chest X-Ray 10/06/17 105 Signed Impressions: Service Date/Time: Friday, October 06, 2017 11:26 - CONCLUSION: Mild cardiomegaly. No acute focal pulmonary infiltrate or pulmonary vascular congestion. Trey Quiroga MD Cervical Spine CT 10/06/17 1052 Signed Impressions: Service Date/Time: Friday, October 06, 2017 12:21 - CONCLUSION: Degenerative changes without fracture. Mohinder Apodaca MD Differential Diagnosis Fall, head injury, hip injury: Fractures versus intracranial injuries versus contusions Narrative Course CAT scan did not show any signs of acute injuries. X-ray does show a right intratrochanteric fracture. Case was discussed with Dr. Shea of orthopedics who states that she would like the patient to be medically admitted and medically cleared for OR tomorrow. Case was discussed with [facility] hospitalist for admission. Diagnosis Primary Impression: Fall Additional Impressions: Intertrochanteric fracture of right hip ETOH abuse Admitting Information Admitting Physician Requests: Admit Gracia Tomas MD Oct 06, 2017 10:57
[2017-10-06] MEDS ORDERED: SODIUM CHLORIDE 0.9% FLUSH 10 ML FLUSH IVF PRN (11:00)
[2017-10-06] MEDS ORDERED: ONDANSETRON HCL 4 MG/2 ML VIAL IVP ONE (11:00)
[2017-10-06 11:32] VITALS: BP 131/65; PULSE 79; RESP 18; O2SAT 97
[2017-10-06 11:53] LABS: AUTOMATED NEUTROPHIL # 4.3 TH/MM3 (1.8-7.7); BASOPHIL % 0.4 % (0.0-2.0); EOSINOPHIL % 0.1 % (0.0-4.0); HEMATOCRIT 35.5 % (35.0-46.0); LYMPH % 21.3 % (9.0-44.0); LYMPHOCYTE # 1.2 TH/MM3 (1.0-4.8); MEAN CELL VOLUME 99.6 FL (80.0-100.0); MEAN CORPUSCULAR HEMOGLOBIN 33.7 PG (27.0-34.0); MEAN CORPUSCULAR HGB CONC 33.8 % (32.0-36.0); MEAN PLATELET VOLUME 6.6 FL (7.0-11.0); MONO % 4.6 % (0.0-8.0); MONOCYTE # 0.3 TH/MM3 (0-0.9); NEUT % 73.6 % (16.0-70.0); PLATELET COUNT 315 TH/MM3 (150-450); RED BLOOD COUNT 3.56 MIL/MM3 (4.00-5.30); RED CELL DISTRIBUTION WIDTH 16.7 % (11.6-17.2); WHITE BLOOD COUNT 5.8 TH/MM3 (4.0-11.0)
[2017-10-06 12:03] LABS: INTERNATIONAL NORMALIZED RATIO 1.2 RATIO; PROTHROMBIN TIME - PATIENT 11.9 SEC (9.8-11.6)
--- NOTE | 2017-10-06 12:03 | RADRPT ---
EXAM DATE/TIME: 10/06/2017 11:26 [facility] COMPARISON: No previous studies available for comparison. INDICATIONS : Fell today, severe right hip pain, nausea. MEDICAL HISTORY : Pancreatitis. Hypertension A-fib, left hip fracture, ulcers SURGICAL HISTORY : left hip replaced ENCOUNTER: Initial ACUITY: 1 day PAIN SCORE: 10/10 LOCATION: Right hip FINDINGS: Examination of the right hip was performed with AP Pelvis. Intertrochanteric fracture with mild displ acement. Femoral head continues to articulate with the acetabulum. The acetabulum is grossly intact. CONCLUSION: Mildly displaced intertrochanteric fracture. Mohinder Apodaca MD on October 06, 2017 at 12:01 Board Certified Radiologist. This report was verified electronically.
--- NOTE | 2017-10-06 12:08 | RADRPT ---
EXAM DATE/TIME: 10/06/2017 11:26 [facility] COMPARISON: CTA THORACIC ABDOMINAL AORTA W 3D RECON, July 26, 2017, 23:50. CHEST SINGLE AP, July 26 7, 23:12. INDICATIONS : Fell today, right hip pain, palpitations, short of breath MEDICAL HISTORY : Pancreatitis. A-fib, ulcers, left hip fractured SURGICAL HISTORY : Appendectomy. Hysterectomy. left hip replaced ENCOUNTER: Initial ACUITY: 1 day PAIN SCORE: 10/10 LOCATION: Bilateral chest FINDINGS: The heart is mildly prominent. Left hilar calcified granulomatous lymph nodes are noted. The pulmonar y vascular pattern is normal. The lungs are clear. CONCLUSION: Mild cardiomegaly. No acute focal pulmonary infiltrate or pulmonary vascular congesti on. Trey Quiroga MD on October 06, 2017 at 12:03 Board Certified Radiologist. This report was verified electronically.
[2017-10-06 12:11] LABS: ALBUMIN 3.1 GM/DL (3.4-5.0); ALT (GPT) 29 U/L (10-53); AST (GOT) 49 U/L (15-37); BICARBONATE 18.2 MEQ/L (21.0-32.0); BLOOD UREA NITROGEN 11 MG/DL (7-18); CALCIUM 7.6 MG/DL (8.5-10.1); CHLORIDE 108 MEQ/L (98-107); CREATININE 0.73 MG/DL (0.50-1.00); GLOMERULAR FILTRATION RATE 79 ML/MIN (>89); GLUCOSE,RANDOM 120 MG/DL (74-106); SODIUM (NA) 139 MEQ/L (136-145)
[2017-10-06 12:15] LABS: ALKALINE PHOSPHATASE 81 U/L (45-117); TOTAL BILIRUBIN ADULT 0.2 MG/DL (0.2-1.0); TOTAL PROTEIN 7.1 GM/DL (6.4-8.2); TROPONIN I LESS THAN 0.02 NG/ML (0.02-0.05)
--- NOTE | 2017-10-06 12:43 | RADRPT ---
EXAM DATE/TIME: 10/06/2017 12:18 [facility] COMPARISON: No previous studies available for comparison. INDICATIONS : Fall RADIATION DOSE: 56.35 CTDIvol (mGy) MEDICAL HISTORY : Cerebrovascular disease. Seizures. Cardiovascular diseaseHTN,ETOH,Ca Breast SURGICAL HISTORY : Appendectomy. Cholecystectomy. ENCOUNTER: Initial ACUITY: 1 day PAIN SCALE: 0/10 LOCATION: cranial TECHNIQUE: Multiple contiguous axial images were obtained of the head. Using automated exposure control and adj ustment of the mA and/or kV according to patient size, radiation dose was kept as low as reasonably a chievable to obtain optimal diagnostic quality images. DICOM format image data is available electro nically for review and comparison. FINDINGS: CEREBRUM: The ventricles are normal for age. Scattered areas low-attenuation throughout the white matter. No ev idence of midline shift, mass lesion, hemorrhage or acute infarction. No extra-axial fluid collectio ns are seen. POSTERIOR FOSSA: The cerebellum and brainstem are intact. The 4th ventricle is midline. The cerebellopontine angle i s unremarkable. EXTRACRANIAL: The visualized portion of the orbits is intact. SKULL: The calvaria is intact. No evidence of skull fracture. CONCLUSION: 1. No hemorrhage. 2. Nonspecific white matter changes. 3. Facial soft tissue swelling. Mohinder Apodaca MD on October 06, 2017 at 12:40 Board Certified Radiologist. This report was verified electronically.
[2017-10-06] MEDS ORDERED: MORPHINE SULFATE 2 MG/ML INJ IV PUSH ONE (12:45)
--- NOTE | 2017-10-06 12:49 | RADRPT ---
EXAM DATE/TIME: 10/06/2017 12:21 [facility] COMPARISON: No previous studies available for comparison. INDICATIONS : Fall,dizzy. RADIATION DOSE: 25.98 CTDIvol (mGy) MEDICAL HISTORY : Cerebrovascular disease. Seizures. Cardiovascular diseaseHTN,Pancretitis,ETOH,RA, Ca Breast.Liver elizabeth sease, GERD SURGICAL HISTORY : Appendectomy. Cholecystectomy.Hysterectomy. ENCOUNTER: Initial ACUITY: 1 day PAIN SCALE: 6/10 LOCATION: cranial TECHNIQUE: Volumetric scanning of the cervical spine was performed. Multiplanar reconstructions in the sagittal, coronal and oblique axial planes were performed. Using automated exposure control and adjustment o f the mA and/or kV according to patient size, radiation dose was kept as low as reasonably achievable to obtain optimal diagnostic quality images. DICOM format image data is available electronically f or review and comparison. FINDINGS: VERTEBRAE: Normal vertebral body height. Degenerative changes are seen greatest at C5-6 and C6-7 levels. ALIGNMENT: No evidence of subluxation. C2-C3: The bony spinal canal is normal in size. No evidence of disc bulge or herniation. The neural forami na are bilaterally patent. C3-C4: The bony spinal canal is normal in size. No evidence of disc bulge or herniation. The neural forami na are bilaterally patent. C4-C5: Posterior disc osteophyte complex without canal stenosis. Bilateral neural foraminal narrowing. C5-C6: Mild broad-based disc bulge without canal stenosis. Mild neural foraminal narrowing. C6-C7: The bony spinal canal is normal in size. No evidence of disc bulge or herniation. The neural forami na are bilaterally patent. C7-T1: The bony spinal canal is normal in size. No evidence of disc bulge or herniation. The neural forami na are bilaterally patent. CONCLUSION: Degenerative changes without fracture. Mohinder Apodaca MD on October 06, 2017 at 12:41 Board Certified Radiologist. This report was verified electronically.
[2017-10-06] MEDS ORDERED: NALOXONE HCL 0.4 MG/ML AMP IV PUSH PRN (15:15)
[2017-10-06] MEDS ORDERED: LACTULOSE SYRUP 20 GM/30 ML CUP PO PRN (15:15)
[2017-10-06] MEDS ORDERED: MAGNESIUM HYDROXIDE SUSP 30 ML CUP PO PRN (15:15)
[2017-10-06] MEDS ORDERED: BISACODYL 10 MG SUPP RECTAL PRN (15:15)
[2017-10-06] MEDS ORDERED: SODIUM CHLORIDE 0.9% FLUSH 10 ML FLUSH IV FLUSH PRN (15:15)
[2017-10-06] MEDS ORDERED: SENNOSIDES 8.6 MG TAB PO PRN (15:15)
[2017-10-06] MEDS ORDERED: ACETAMINOPHEN 325 MG TAB PO PRN (15:15)
[2017-10-06 16:00] VITALS: BP 183/88; PULSE 96; RESP 20; TEMP 98.3; O2SAT 97
[2017-10-06] MEDS: HEPARIN SODIUM - SQ 10,000 UNITS/ML VIAL SQ SCH ×2 (16:00→23:29)
[2017-10-06] MEDS: MORPHINE SULFATE 2 MG/ML INJ IV PRN ×2 (17:15→22:08)
[2017-10-06] MEDS: ONDANSETRON HCL 4 MG/2 ML VIAL IVP PRN (18:01)
--- NOTE | 2017-10-06 18:05 | HHI.HP ---
HPI Service [facility] Hospitalists Primary Care Physician Unknown Admission Diagnosis Right hip fracture/fall Diagnoses: Chief Complaint: right hip pain Travel History International Travel<30 Days: No Contact w/Intl Traveler <30 Da: No Traveled to Known Affected Are: No History of Present Illness This is a 72-year-old female with past medical history of alcohol abuse, hypertension, hypothyroidism, breast cancer who presented to the emergency department at [facility] complaining that she fell this morning in the kitchen. The patient states that she slipped over some spilled water and then fell over her right side having immediate severe 10/10 pain which is nonradiating located in the right hip, greatly intensified worsened by movement. Relieved by laying still and IV pain medication that she was given in the emergency department. The patient complains of tremors, denies hallucinations and feels nauseous, denies abdominal pain, chest pain or shortness of breath. Patient also denies any fevers or chills, cough, dysuria. Review of Systems As per HPI, other systems reviewed by me and negative. Past Family Social History Past Medical History Hypertension Pancreatitis Hypothyroidism Breast cancer Past Surgical History Breast lumpectomy Hysterectomy Reported Medications Reported Meds & Active Scripts Active Amlodipine (Amlodipine Besylate) 5 Mg Tab 5 Mg PO DAILY Vitamin B-1 (Thiamine HCl) 100 Mg Tab 100 Mg PO DAILY 30 Days Klor-Con M20 (Potassium Chloride Microencaps) 20 Meq Tab 20 Meq PO DAILY Thera/Beta-Carotene (Multiple Vitamin) 1 Tab Tab 1 Tab PO DAILY Nexium (Esomeprazole DR) 40 Mg Capdr 40 Mg PO DAILY Reported Creon (Pancrelipase) 3,000-9,500-15,000 Units Cap 1 Cap PO TIDPC Maxzide (Triamterene/HCTZ) 75-50 Mg Tab 1 Tab PO DAILY Losartan (Losartan Potassium) 100 Mg Tab 100 Mg PO DAILY Alprazolam 1 Mg Tab 1 Mg PO HS PRN Levothyroxine (Levothyroxine Sodium) 175 Mcg Tab 175 Mcg PO DAILY Pristiq 24 HR (Desvenlafaxine ER 24 HR) 100 Mg Tab 100 Mg PO DAILY Allergies: Coded Allergies: Sulfa (Sulfonamide Antibiotics) (Unverified Allergy, Intermediate, rash, ) Active Ordered Medications Current Medications Medications (Trade) Dose Ordered Sig/Veronica Route Start Time Stop Time Status Last Admin (NS Flush) 2 ml UNSCH PRN IV FLUSH 10/06/17 15:15 (NS Flush) 2 ml BID IV FLUSH 10/06/17 21:00 (Tylenol) 650 mg Q4H PRN PO 10/06/17 15:15 (Zofran Inj) 4 mg Q6H PRN IVP 10/06/17 15:15 (Heparin Inj) 5,000 units Q8H SQ 10/06/17 16:00 10/06/17 16:00 (Narcan Inj) 0.4 mg UNSCH PRN IV PUSH 10/06/17 15:15 (Olivia-Colace) 1 tab BID PO 10/06/17 21:00 (Milk Of Magnesia Liq) 30 ml Q12H PRN PO 10/06/17 15:15 (Senokot) 17.2 mg Q12H PRN PO 10/06/17 15:15 (Dulcolax Supp) 10 mg DAILY PRN RECTAL 10/06/17 15:15 (Lactulose Liq) 30 ml DAILY PRN PO 10/06/17 15:15 (Morphine Inj) 2 mg Q3H PRN IV 10/06/17 17:30 10/06/17 17:15 ([place] 5-325 Mg) 1 tab Q4H PRN PO 10/06/17 17:30 Family History Discussed with the patient and not relevant to this admission. Social History Denies smoking, drinks daily. Physical Exam Vital Signs Vital Signs Date Time Temp Pulse Resp B/P (MAP) Pulse Ox O2 Delivery O2 Flow Rate FiO2 10/06/17 17:19 10/06/17 16:00 98.3 96 20 183/88 (119) 97 10/06/17 11:32 79 18 131/65 (87) 97 Room Air 10/06/17 10:44 77 18 97 Room Air 10/06/17 10:36 98.7 85 18 129/64 (85) 97 Physical Exam GENERAL: This is a well-nourished, well-developed patient, in moderate distress secondary to hand tremors. SKIN: No rashes, ecchymoses or lesions. Cool and dry. HEAD: Atraumatic. Normocephalic. No temporal or scalp tenderness. EYES: Pupils equal round and reactive. Extraocular motions intact. No scleral icterus. No injection or drainage. ENT: Nose without bleeding, purulent drainage or septal hematoma. Throat without erythema, tonsillar hypertrophy or exudate. Uvula midline. Airway patent. NECK: Trachea midline. No JVD or lymphadenopathy. Supple, nontender, no meningeal signs. CARDIOVASCULAR: Regular rate and rhythm without murmurs, gallops, or rubs. RESPIRATORY: Clear to auscultation. Breath sounds equal bilaterally. No wheezes , rales, or rhonchi. GASTROINTESTINAL: Abdomen soft, non-tender, nondistended. No hepato-splenomegaly , or palpable masses. No guarding. MUSCULOSKELETAL: Extremities without clubbing, cyanosis, or edema. There is severe tenderness to palpation of the right hip. No effusion, or edema noted. No calf tenderness. Negative Homans sign bilaterally. The right lower extremity is shortened and externally rotated. There are good pedal pulses in bilateral extremities. NEUROLOGICAL: Awake and alert. Cranial nerves II through XII intact. Motor and sensory grossly within normal limits. Five out of 5 muscle strength in all muscle groups. Normal speech. Severe tremors. Laboratory Laboratory Tests Test 10/06/17 11:00 White Blood Count 5.8 Red Blood Count 3.56 Hemoglobin 12.0 Hematocrit 35.5 Mean Corpuscular Volume 99.6 Mean Corpuscular Hemoglobin 33.7 Mean Corpuscular Hemoglobin Concent 33.8 Red Cell Distribution Width 16.7 Platelet Count 315 Mean Platelet Volume 6.6 Neutrophils (%) (Auto) 73.6 Lymphocytes (%) (Auto) 21.3 Monocytes (%) (Auto) 4.6 Eosinophils (%) (Auto) 0.1 Basophils (%) (Auto) 0.4 Neutrophils # (Auto) 4.3 Lymphocytes # (Auto) 1.2 Monocytes # (Auto) 0.3 Eosinophils # (Auto) 0.0 Basophils # (Auto) 0.0 CBC Comment DIFF FINAL Differential Comment Prothrombin Time 11.9 Prothromb Time International Ratio 1.2 Activated Partial Thromboplast Time 24.5 Blood Urea Nitrogen 11 Creatinine 0.73 Random Glucose 120 Total Protein 7.1 Albumin 3.1 Calcium Level 7.6 Alkaline Phosphatase 81 Aspartate Amino Transf (AST/SGOT) 49 Alanine Aminotransferase (ALT/SGPT) 29 Total Bilirubin 0.2 Sodium Level 139 Potassium Level 3.6 Chloride Level 108 Carbon Dioxide Level 18.2 Anion Gap 13 Estimat Glomerular Filtration Rate 79 Total Creatine Kinase 59 Troponin I LESS THAN 0.02 Ethyl Alcohol Level 228 Result Diagram: 10/06/17 1100 10/06/17 1100 Imaging Last Impressions Hip and Pelvis X-Ray 10/06/17 1052 Signed Impressions: Service Date/Time: Friday, October 06, 2017 11:26 - CONCLUSION: Mildly displaced intertrochanteric fracture. Mohinder Apodaca MD Head CT 10/06/17 1052 Signed Impressions: Service Date/Time: Friday, October 06, 2017 12:18 - CONCLUSION: 1. No hemorrhage. 2. Nonspecific white matter changes. 3. Facial soft tissue swelling. Mohinder Apodaca MD Chest X-Ray 10/06/17 1052 Signed Impressions: Service Date/Time: Friday, October 06, 2017 11:26 - CONCLUSION: Mild cardiomegaly. No acute focal pulmonary infiltrate or pulmonary vascular congestion. Trey Quiroga MD Cervical Spine CT 10/06/17 1052 Signed Impressions: Service Date/Time: Friday, October 06, 2017 12:21 - CONCLUSION: Degenerative changes without fracture. Mohinder Apodaca MD Chest x-ray and head CT reviewed by me. Caprini VTE Risk Assessment Caprini VTE Risk Assessment: Mod/High Risk (score >= 2) Caprini Risk Assessment Model Point Value = 1 Point Value = 2 Point Value = 3 Point Value = 5 Age 41-60 Minor surgery BMI > 25 kg/m2 Swollen legs Varicose veins or History of unexplained or recurrent spontaneous Oral contraceptives or hormone replacement Sepsis (< 1 month) Serious lung disease, including pneumonia (< 1 month) Abnormal pulmonary function Acute myocardial infarction Congestive heart failure (< 1 month) History of inflammatory bowel disease Medical patient at bed rest Age 61-74 Arthroscopic surgery Major open surgery (> 45 min) Laparoscopic surgery (> 45 min) Malignancy Confined to bed (> 72 hours) Immobilizing plaster cast Central venous access Age >= 75 History of VTE Family history of VTE Factor V Leiden Prothrombin [id number] Lupus anticoagulant Anticardiolipin antibodies Elevated serum homocysteine Heparin-induced thrombocytopenia Other congenital or acquired thrombophilia Stroke (< 1 month) Elective arthroplasty Hip, pelvis, or leg fracture Acute spinal cord injury (< 1 month) Prophylaxis Regimen Total Risk Factor Score Risk Level Prophylaxis Regimen 0-1 Low Early ambulation 2 Moderate Order ONE of the following: *Sequential Compression Device (SCD) *Heparin 5000 units SQ BID 3-4 Higher Order ONE of the following medications: *Heparin 5000 units SQ TID *Enoxaparin/Lovenox 40 mg SQ daily (WT < 150 kg, CrCl > 30 mL/min) *Enoxaparin/Lovenox 30 mg SQ daily (WT < 150 kg, CrCl > 10-29 mL/min) *Enoxaparin/Lovenox 30 mg SQ BID (WT < 150 kg, CrCl > 30 mL/min) AND/OR *Sequential Compression Device (SCD) 5 or more Highest Order ONE of the following medications: *Heparin 5000 units SQ TID (Preferred with Epidurals) *Enoxaparin/Lovenox 40 mg SQ daily (WT < 150 kg, CrCl > 30 mL/min) *Enoxaparin/Lovenox 30 mg SQ daily (WT < 150 kg, CrCl > 10-29 mL/min) *Enoxaparin/Lovenox 30 mg SQ BID (WT < 150 kg, CrCl > 30 mL/min) AND *Sequential Compression Device (SCD) Assessment and Plan Problem List: (1) Fall ICD Code: W19.XXXA - Unspecified fall, initial encounter Status: Acute Plan: Patient states she slipped and fell, denies loss of consciousness. Workup reveals negative head CT. Chest x-ray with mild cardiomegaly. No acute focal pulmonary infiltrate or pulmonary vascular congestion. Cervical spine CT shows degenerative changes without fracture. Hip and pelvis x-ray shows mildly displaced intertrochanteric fracture. (2) Alcohol intoxication ICD Code: F10.929 - Alcohol use, unspecified with intoxication, unspecified Plan: Alcohol level on admission is 228 likely contributing to increased risk of falls. (3) Alcohol withdrawal delirium, acute, hyperactive ICD Code: F10.231 - Alcohol dependence with withdrawal delirium Plan: Patient currently with tremors, slight tachycardia with heart rate of 96 and hypertensive with a systolic blood pressure in the 180s. I will place the patient on a CIWA protocol with benzodiazepines. (4) Metabolic acidosis ICD Code: E87.2 - Acidosis Plan: Non-anion gap metabolic acidosis. Likely secondary to alcohol intoxication. Continue to monitor BMP. Will place on IV fluids. (5) Hyperglycemia ICD Code: R73.9 - Hyperglycemia, unspecified Plan: Secondary to stress hyperglycemia. Upon review of records the patient has had a recent hemoglobin A1c on October 17, 2016 which was 4.6. I will recheck hemoglobin A1c. (6) Transaminitis ICD Code: R74.0 - Nonspecific elevation of levels of transaminase and lactic acid dehydrogenase [LDH] Plan: The patient has had elevated AST since September 26, 2017. Suspect related to alcohol ingestion. However since patient has been a long-standing drinker I will order liver ultrasound, hepatitis profile and continue to monitor liver function tests. (7) Intertrochanteric fracture of right hip ICD Code: S72.141A - Displaced intertrochanteric fracture of right femur, initial encounter for closed fracture Status: Acute (8) Uncontrolled hypertension ICD Code: I10 - Essential (primary) hypertension Plan: Blood pressure control likely worst with alcohol withdrawal. I will continue home antihypertensive medications, the patient has been placed on CIWA protocol. We will place on Vasotec as needed for systolic blood pressure more than 160. (9) Hypothyroid ICD Code: E03.9 - Hypothyroidism Status: Chronic Plan: Continue levothyroxine. Will check TSH and free T4. (10) Depression ICD Code: F32.9 - Depression Status: Chronic Plan: Continue desvenlafaxine and alprazolam as needed for anxiety. Assessment and Plan GI prophylaxis: Place of PPI. DVT prophylaxis: SCDs, heparin subcu. Discussed Condition With ED physician, patient, RN. Physician Certification 2 Midnight Certification Type: Admission for Inpatient Services Order for Inpatient Services The services are ordered in accordance with Medicare regulations or non- Medicare payer requirements, as applicable. In the case of services not specified as inpatient-only, they are appropriately provided as inpatient services in accordance with the 2-midnight benchmark. Estimated LOS (days): 2 days is the estimated time the patient will need to remain in the hospital, assuming treatment plan goals are met and no additional complications. Post-Hospital Plan: Not yet determined Problem Qualifiers (1) Fall: Qualified Codes: W19.XXXA - Unspecified fall, initial encounter (2) Alcohol intoxication: Qualified Codes: F10.921 - Alcohol use, unspecified with intoxication delirium (3) Intertrochanteric fracture of right hip: Qualified Codes: S72.141A - Displaced intertrochanteric fracture of right femur , initial encounter for closed fracture (4) Hypothyroid: Qualified Codes: E03.9 - Hypothyroidism, unspecified (5) Depression: Qualified Codes: F32.9 - Major depressive disorder, single episode, unspecified Yuri Wesley MD Oct 06, 2017 18:05
[2017-10-06] MEDS ORDERED: FLUMAZENIL 0.5 MG/5 ML VIAL IV PUSH PRN (18:15)
[2017-10-06] MEDS ORDERED: LORazepam 2 MG/ML VIAL IV PUSH PRN ×2 (18:15)
[2017-10-06] MEDS ORDERED: MORPHINE SULFATE 2 MG/ML INJ IV PUSH PRN (18:30)
[2017-10-06] MEDS ORDERED: MORPHINE SULFATE 8 MG/ML INJ ONE (18:54)
[2017-10-06] MEDS ORDERED: MORPHINE SULFATE 4 MG/ML INJ IV PUSH ONE (19:30)
[2017-10-06 20:00] VITALS: BP 173/90; PULSE 120; RESP 17; TEMP 98.7; O2SAT 97
[2017-10-06] MEDS ORDERED: LABETALOL HCL 100 MG/20 ML VIAL IV PUSH PRN (20:30)
[2017-10-06] MEDS: SODIUM CHLORIDE 0.9% FLUSH 10 ML FLUSH IV FLUSH SCH (21:00)
[2017-10-06] MEDS: DEXTROSE 5%-LACTATED RING INJ 1,000 ML IV SCH (21:12)
[2017-10-06] MEDS: amLODIPine BESYLATE 5 MG TAB PO SCH (21:12)
[2017-10-06] MEDS: DOCUSATE SODIUM 50 MG/SENNA 8.6 MG TAB PO SCH (21:12)
[2017-10-06] MEDS: LORazepam 2 MG/ML VIAL IV PUSH PRN ×2 (21:13→23:39)
[2017-10-06 22:00] VITALS: PULSE 115
[2017-10-06] MEDS: ACETAMINOPHEN/HYDROcodone 325 MG/5 MG TAB PO PRN (23:39)
[2017-10-07] VITALS (12 sets, daily range): BP systolic 126–177; BP diastolic 62–88; PULSE 68–106; RESP 17–25; TEMP 98.7–99.2; O2SAT 93–99
[2017-10-07] MEDS: hydrALAZINE HCL 20 MG/ML VIAL IV PUSH PRN ×3 (00:26→18:51)
[2017-10-07] MEDS: MORPHINE SULFATE 4 MG/ML INJ IV PUSH PRN ×2 (01:40→21:36)
[2017-10-07] MEDS ORDERED: diphenhydrAMINE HCL 50 MG/ML VIAL IV PUSH ONE (02:00)
[2017-10-07] MEDS: LORazepam 2 MG/ML VIAL IV PUSH PRN ×5 (02:04→23:27)
[2017-10-07] MEDS: PANTOPRAZOLE SOD 40 MG DELAYED RELEASE TAB PO SCH (05:17)
[2017-10-07] MEDS: LEVOTHYROXINE SODIUM 25 MCG TAB PO SCH (05:17)
[2017-10-07] MEDS: DEXTROSE 5%-LACTATED RING INJ 1,000 ML IV SCH ×2 (06:30→16:17)
--- NOTE | 2017-10-07 07:15 | PD.CONS ---
[facility] Service Orthopedic Surgeons Consult Requested By Reason for Consult Right hip fracture Primary Care Physician Unknown Admission Diagnosis Right hip fracture/fall Diagnoses: (1) Fall Diagnosis: Secondary (2) Alcohol intoxication Diagnosis: Secondary (3) Alcohol withdrawal delirium, acute, hyperactive Diagnosis: Principal (4) Metabolic acidosis Diagnosis: Secondary (5) Hyperglycemia (6) Transaminitis (7) Intertrochanteric fracture of right hip Diagnosis: Principal (8) Uncontrolled hypertension Diagnosis: Secondary (9) Hypothyroid Diagnosis: Secondary (10) Depression Diagnosis: Secondary Chief Complaint: Right hip pain History of Present Illness This is a 72-year-old female with past medical history of alcohol abuse, hypertension, hypothyroidism, breast cancer who presented to the emergency department at [facility] complaining that she fell this morning in the kitchen. The patient states that she slipped over some spilled water and then fell over her right side having immediate severe 10/10 pain which is nonradiating located in the right hip, greatly intensified worsened by movement. Relieved by laying still and IV pain medication that she was given in the emergency department. The patient complains of tremors, denies hallucinations and feels nauseous, denies abdominal pain, chest pain or shortness of breath. Review of Systems Constitutional: DENIES: Fever Endocrine: DENIES: Polyuria Eyes: DENIES: Blurred vision Ears, nose, mouth, throat: DENIES: Throat pain Respiratory: DENIES: Cough Cardiovascular: DENIES: Chest pain Gastrointestinal: DENIES: Abdominal pain Genitourinary: DENIES: Urinary incontinence Musculoskeletal: COMPLAINS OF: Joint pain, Joint Swelling Integumentary: DENIES: Rash Hematologic/lymphatic: DENIES: Bruising Immunologic/allergic: DENIES: Eczema Neurologic: DENIES: Abnormal gait Psychiatric: DENIES: Anxiety Past Family Social History Past Medical History Hypertension Pancreatitis Hypothyroidism Breast cancer Past Surgical History Breast lumpectomy Hysterectomy Allergies: Coded Allergies: Sulfa (Sulfonamide Antibiotics) (Unverified Allergy, Intermediate, rash, ) Active Ordered Medications Current Medications Medications (Trade) Dose Ordered Sig/Veronica Route Start Time Stop Time Status Last Admin (NS Flush) 2 ml UNSCH PRN IV FLUSH 2/9/18 15:15 (NS Flush) 2 ml BID IV FLUSH 10/06/17 21:00 10/06/17 21:00 (Tylenol) 650 mg Q4H PRN PO 10/06/17 15:15 (Zofran Inj) 4 mg Q6H PRN IVP 10/06/17 15:15 10/06/17 18:01 (Heparin Inj) 5,000 units Q8H SQ 10/06/17 16:00 10/06/17 16:00 (Narcan Inj) 0.4 mg UNSCH PRN IV PUSH 10/06/17 15:15 (Olivia-Colace) 1 tab BID PO 10/06/17 21:00 10/06/17 21:12 (Milk Of Magnesia Liq) 30 ml Q12H PRN PO 10/06/17 15:15 (Senokot) 17.2 mg Q12H PRN PO 10/06/17 15:15 (Dulcolax Supp) 10 mg DAILY PRN RECTAL 10/06/17 15:15 (Lactulose Liq) 30 ml DAILY PRN PO 10/06/17 15:15 (Morphine Inj) 2 mg Q3H PRN IV 10/06/17 17:30 10/06/17 22:08 ([place] 5-325 Mg) 1 tab Q4H PRN PO 10/06/17 17:30 10/06/17 23:39 (Romazicon Inj) 0.2 mg Q1M PRN IV PUSH 10/06/17 18:15 (Ativan) 1 mg Q4H PRN PO 10/06/17 18:15 (Ativan Inj) 1 mg Q4H PRN IV PUSH 10/06/17 18:15 (Ativan) 2 mg Q2H PRN PO 10/06/17 18:15 (Ativan Inj) 2 mg Q2H PRN IV PUSH 10/06/17 18:15 (Ativan Inj) 2 mg Q1H PRN IV PUSH 10/06/17 18:15 10/07/17 02:04 (Ativan Inj) 2 mg Q15M PRN IV PUSH 10/06/17 18:15 10/06/17 19:22 (Morphine Inj) 2 mg Q3H PRN IV PUSH 2/9/18 18:30 (Morphine Inj) 4 mg Q3H PRN IV PUSH 10/06/17 18:30 10/07/17 01:40 (Xanax) 1 mg HS PRN PO 10/06/17 18:45 (Norvasc) 5 mg DAILY PO 10/06/17 20:00 10/06/17 21:12 (Cozaar) 100 mg DAILY PO 10/07/17 09:00 (Vitamin B1) 100 mg DAILY PO 10/07/17 09:00 Patient Own Medication PT OWN MED: (Desvenlafaxine ER 24... DAILY PO 10/07/17 09:00 Future Hold (Protonix) 40 mg DAILY@0600 PO 10/07/17 06:00 10/07/17 05:17 (Synthroid) 150 mcg DAILY PO 10/07/17 09:00 (Theragran) 1 tab DAILY PO 10/07/17 09:00 (Creon 6-19-30) 1 cap TIDPC PO 10/07/17 09:30 (Synthroid) 25 mcg DAILY@0600 PO 10/07/17 06:00 10/07/17 05:17 (Trandate Inj) 10 mg Q6H PRN IV PUSH 10/06/17 20:30 10/06/17 22:28 Dextrose/Lactated Ringer's 1,000 ml @ 100 mls/hr Q10H IV 10/06/17 20:30 10/07/17 06:30 (Apresoline Inj) 10 mg Q6H PRN IV PUSH 10/07/17 00:00 10/07/17 06:31 Reported Meds & Active Scripts Active Amlodipine (Amlodipine Besylate) 5 Mg Tab 5 Mg PO DAILY Vitamin B-1 (Thiamine HCl) 100 Mg Tab 100 Mg PO DAILY 30 Days Klor-Con M20 (Potassium Chloride Microencaps) 20 Meq Tab 20 Meq PO DAILY Thera/Beta-Carotene (Multiple Vitamin) 1 Tab Tab 1 Tab PO DAILY Nexium (Esomeprazole DR) 40 Mg Capdr 40 Mg PO DAILY Reported Creon (Pancrelipase) 3,000-9,500-15,000 Units Cap 1 Cap PO TIDPC Maxzide (Triamterene/HCTZ) 75-50 Mg Tab 1 Tab PO DAILY Losartan (Losartan Potassium) 100 Mg Tab 100 Mg PO DAILY Alprazolam 1 Mg Tab 1 Mg PO HS PRN Levothyroxine (Levothyroxine Sodium) 175 Mcg Tab 175 Mcg PO DAILY Pristiq 24 HR (Desvenlafaxine ER 24 HR) 100 Mg Tab 100 Mg PO DAILY Family History Discussed with the patient and not relevant to this admission. Social History Denies smoking, drinks daily. Physical Exam Vital Signs Vital Signs Date Time Temp Pulse Resp B/P (MAP) Pulse Ox O2 Delivery O2 Flow Rate FiO2 10/07/17 06:00 94 10/07/17 04:00 96 10/07/17 04:00 98.7 96 17 172/88 (116) 96 10/07/17 02:00 92 10/07/17 00:00 86 10/07/17 00:00 98.7 86 21 172/85 (114) 98 10/06/17 22:00 115 10/06/17 20:00 98.7 120 17 173/90 (117) 97 10/06/17 17:19 10/06/17 16:00 98.3 96 20 183/88 (119) 97 10/06/17 11:32 79 18 131/65 (87) 97 Room Air 10/06/17 10:44 77 18 97 Room Air 10/06/17 10:36 98.7 85 18 129/64 (85) 97 Physical Exam Awake, alert, appears slightly confused with asking same questions repeatedly Normocephalic Pupils equal No JVD Moist mucous membranes Non-labored respirations Regular rate Soft abdomen RLE: + logroll, mild TTP at hip. Unable to assess ROM due to pain. +EHL, FHL, DF , PF. Sensation appears intact. BCR BUE and LLE: no TTP or deformities. Full active ROM and strength throughout. Sensation appears intact. BCR No rash Flat affect Laboratory Laboratory Tests Test 10/06/17 11:00 10/07/17 06:09 White Blood Count 5.8 Red Blood Count 3.56 Hemoglobin 12.0 Hematocrit 35.5 Mean Corpuscular Volume 99.6 Mean Corpuscular Hemoglobin 33.7 Mean Corpuscular Hemoglobin Concent 33.8 Red Cell Distribution Width 16.7 Platelet Count 315 Mean Platelet Volume 6.6 Neutrophils (%) (Auto) 73.6 Lymphocytes (%) (Auto) 21.3 Monocytes (%) (Auto) 4.6 Eosinophils (%) (Auto) 0.1 Basophils (%) (Auto) 0.4 Neutrophils # (Auto) 4.3 Lymphocytes # (Auto) 1.2 Monocytes # (Auto) 0.3 Eosinophils # (Auto) 0.0 Basophils # (Auto) 0.0 CBC Comment DIFF FINAL Differential Comment Prothrombin Time 11.9 Prothromb Time International Ratio 1.2 Activated Partial Thromboplast Time 24.5 Blood Urea Nitrogen 11 Creatinine 0.73 Random Glucose 120 Total Protein 7.1 Albumin 3.1 Calcium Level 7.6 Alkaline Phosphatase 81 Aspartate Amino Transf (AST/SGOT) 49 Alanine Aminotransferase (ALT/SGPT) 29 Total Bilirubin 0.2 Sodium Level 139 Potassium Level 3.6 Chloride Level 108 Carbon Dioxide Level 18.2 Anion Gap 13 Estimat Glomerular Filtration Rate 79 Total Creatine Kinase 59 Troponin I LESS THAN 0.02 Ethyl Alcohol Level 228 Result Diagram: 10/06/17 1100 10/06/17 1100 Imaging Last 24 hours Impressions Hip and Pelvis X-Ray 10/06/17 1052 Signed Impressions: Service Date/Time: Friday, October 06, 2017 11:26 - CONCLUSION: Mildly displaced intertrochanteric fracture. Mohinder Apodaca MD Head CT 10/06/17 1052 Signed Impressions: Service Date/Time: Friday, October 06, 2017 12:18 - CONCLUSION: 1. No hemorrhage. 2. Nonspecific white matter changes. 3. Facial soft tissue swelling. Mohinder Apodaca MD Chest X-Ray 10/06/17 1052 Signed Impressions: Service Date/Time: Friday, October 06, 2017 11:26 - CONCLUSION: Mild cardiomegaly. No acute focal pulmonary infiltrate or pulmonary vascular congestion. Trey Quiroga MD Cervical Spine CT 10/06/17 1052 Signed Impressions: Service Date/Time: Friday, October 06, 2017 12:21 - CONCLUSION: Degenerative changes without fracture. Mohinder Apodaca MD Assessment & Plan Assessment and Plan 72yo F with R intertrochanteric femur fracture Options of management were discussed with the patient. Operative intervention in the form of right intramedullary nail were discussed. Risks of surgery including but not limited to: infection, nonunion or malunion, hardware malposition or failure, neurovascular injury, possible need for further surgery were all discussed with the patient. Plan for surgery today. NPO since midnight Ivette Shea MD Oct 07, 2017 07:15
[2017-10-07 07:24] LABS: ALBUMIN 3.3 GM/DL (3.4-5.0); ALKALINE PHOSPHATASE 91 U/L (45-117); ALT (GPT) 26 U/L (10-53); AST (GOT) 34 U/L (15-37); BICARBONATE 23.6 MEQ/L (21.0-32.0); BLOOD UREA NITROGEN 16 MG/DL (7-18); CALCIUM 8.9 MG/DL (8.5-10.1); CHLORIDE 104 MEQ/L (98-107); CREATININE 0.95 MG/DL (0.50-1.00); GLOMERULAR FILTRATION RATE 58 ML/MIN (>89); GLUCOSE,RANDOM 125 MG/DL (74-106); SODIUM (NA) 140 MEQ/L (136-145); TOTAL BILIRUBIN ADULT 0.7 MG/DL (0.2-1.0); TOTAL PROTEIN 7.2 GM/DL (6.4-8.2)
[2017-10-07] MEDS ORDERED: VANCOMYCIN HCL 1000 MG VIAL ONE (07:36)
[2017-10-07] MEDS ORDERED: ceFAZolin INJ 1,000 MG VIAL ONE (07:36)
[2017-10-07] MEDS ORDERED: SODIUM CHLOR 0.9% 250 ML INJ 0 ML ONE (07:37)
[2017-10-07] MEDS ORDERED: DESVENLAFAXINE 100 MG PO SCH (09:00)
[2017-10-07] MEDS: SODIUM CHLORIDE 0.9% FLUSH 10 ML FLUSH IV FLUSH SCH ×2 (09:00→21:00)
[2017-10-07] MEDS: LORazepam 2 MG TAB PO PRN ×2 (09:08→18:52)
[2017-10-07] MEDS: ACETAMINOPHEN/HYDROcodone 325 MG/5 MG TAB PO PRN ×3 (09:09→19:42)
[2017-10-07] MEDS: LEVOTHYROXINE SODIUM 150 MCG TAB PO SCH (09:49)
[2017-10-07] MEDS: HEPARIN SODIUM - SQ 10,000 UNITS/ML VIAL SQ SCH ×3 (09:49→23:26)
[2017-10-07] MEDS: THIAMINE HCL 100 MG TAB PO SCH (09:49)
[2017-10-07] MEDS: LIPASE/PROTEASE/AMYLASE (6,000/19,000/30,000) CAP PO SCH ×3 (09:49→18:30)
[2017-10-07] MEDS: amLODIPine BESYLATE 5 MG TAB PO SCH (09:49)
[2017-10-07] MEDS: DOCUSATE SODIUM 50 MG/SENNA 8.6 MG TAB PO SCH ×2 (09:50→19:42)
[2017-10-07] MEDS: LOSARTAN 50 MG TAB PO SCH (09:50)
[2017-10-07] MEDS: MULTIVITAMIN TAB PO SCH (09:50)
[2017-10-07] MEDS: METOPROLOL TARTRATE 50 MG TAB PO SCH ×2 (10:55→19:42)
[2017-10-07] MEDS: MORPHINE SULFATE 2 MG/ML INJ IV PRN (10:57)
--- NOTE | 2017-10-07 14:46 | HHI.PR ---
Subjective Remarks Denies hallucinations, tremors better. Patient seems slightly confused. Denies cp, sob. Afebrile. Pain in hip is controlled. Objective Vitals Vital Signs Date Time Temp Pulse Resp B/P (MAP) Pulse Ox O2 Delivery O2 Flow Rate FiO2 10/07/17 06:00 94 10/07/17 04:00 96 10/07/17 04:00 98.7 96 17 172/88 (116) 96 10/07/17 02:00 92 10/07/17 00:00 86 10/07/17 00:00 98.7 86 21 172/85 (114) 98 10/06/17 22:00 115 10/06/17 20:00 98.7 120 17 173/90 (117) 97 10/06/17 17:19 10/06/17 16:00 98.3 96 20 183/88 (119) 97 I/O 10/06/17 10/06/17 10/06/17 10/07/17 10/07/17 10/07/17 07:00 15:00 23:00 07:00 15:00 23:00 Output Total 650 ml Balance -650 ml Output Urine Total 650 ml Result Diagram: 10/06/17 1100 10/07/17 0609 Imaging Last Impressions Hip and Pelvis X-Ray 10/06/17 105 Signed Impressions: Service Date/Time: Friday, October 06, 2017 11:26 - CONCLUSION: Mildly displaced intertrochanteric fracture. Mohinder Apodaca MD Head CT 10/06/17 105 Signed Impressions: Service Date/Time: Friday, October 06, 2017 12:18 - CONCLUSION: 1. No hemorrhage. 2. Nonspecific white matter changes. 3. Facial soft tissue swelling. Mohinder Apodaca MD Chest X-Ray 10/06/17 105 Signed Impressions: Service Date/Time: Friday, October 06, 2017 11:26 - CONCLUSION: Mild cardiomegaly. No acute focal pulmonary infiltrate or pulmonary vascular congestion. Trey Quiroga MD Cervical Spine CT 10/06/17 105 Signed Impressions: Service Date/Time: Friday, October 06, 2017 12:21 - CONCLUSION: Degenerative changes without fracture. Mohinder Apodaca MD Objective Remarks GENERAL: This is a well-nourished, well-developed patient, nad. SKIN: No rashes, ecchymoses or lesions. Cool and dry. HEAD: Atraumatic. Normocephalic. No temporal or scalp tenderness. EYES: Pupils equal round and reactive. Extraocular motions intact. No scleral icterus. No injection or drainage. ENT: Nose without bleeding, purulent drainage or septal hematoma. Throat without erythema, tonsillar hypertrophy or exudate. Uvula midline. Airway patent. NECK: Trachea midline. No JVD or lymphadenopathy. Supple, nontender, no meningeal signs. CARDIOVASCULAR: Regular rate and rhythm without murmurs, gallops, or rubs. RESPIRATORY: Clear to auscultation. Breath sounds equal bilaterally. No wheezes , rales, or rhonchi. GASTROINTESTINAL: Abdomen soft, non-tender, nondistended. No hepato-splenomegaly , or palpable masses. No guarding. MUSCULOSKELETAL: Extremities without clubbing, cyanosis, or edema. There is severe tenderness to palpation of the right hip. No effusion, or edema noted. No calf tenderness. Negative Homans sign bilaterally. The right lower extremity is shortened and externally rotated. There are good pedal pulses in bilateral extremities. NEUROLOGICAL: Awake and alert. Cranial nerves II through XII intact. Motor and sensory grossly within normal limits. Five out of 5 muscle strength in all muscle groups. Normal speech. No tremors observed. Medications and IVs Current Medications Medications (Trade) Dose Ordered Sig/Veronica Route Start Time Stop Time Status Last Admin (NS Flush) 2 ml UNSCH PRN IV FLUSH 10/06/17 15:15 (NS Flush) 2 ml BID IV FLUSH 10/06/17 21:00 10/07/17 09:00 (Tylenol) 650 mg Q4H PRN PO 10/06/17 15:15 (Zofran Inj) 4 mg Q6H PRN IVP 10/06/17 15:15 10/06/17 18:01 (Heparin Inj) 5,000 units Q8H SQ 10/06/17 16:00 10/07/17 09:49 (Narcan Inj) 0.4 mg UNSCH PRN IV PUSH 10/06/17 15:15 (Olivia-Colace) 1 tab BID PO 10/06/17 21:00 10/07/17 09:50 (Milk Of Magnesia Liq) 30 ml Q12H PRN PO 10/06/17 15:15 (Senokot) 17.2 mg Q12H PRN PO 10/06/17 15:15 (Dulcolax Supp) 10 mg DAILY PRN RECTAL 10/06/17 15:15 (Lactulose Liq) 30 ml DAILY PRN PO 10/06/17 15:15 (Morphine Inj) 2 mg Q3H PRN IV 10/06/17 17:30 10/07/17 10:57 ([place] 5-325 Mg) 1 tab Q4H PRN PO 10/06/17 17:30 10/07/17 09:09 (Romazicon Inj) 0.2 mg Q1M PRN IV PUSH 10/06/17 18:15 (Ativan) 1 mg Q4H PRN PO 10/06/17 18:15 (Ativan Inj) 1 mg Q4H PRN IV PUSH 10/06/17 18:15 (Ativan) 2 mg Q2H PRN PO 10/06/17 18:15 10/07/17 09:08 (Ativan Inj) 2 mg Q2H PRN IV PUSH 10/06/17 18:15 (Ativan Inj) 2 mg Q1H PRN IV PUSH 10/06/17 18:15 10/07/17 11:07 (Ativan Inj) 2 mg Q15M PRN IV PUSH 10/06/17 18:15 10/06/17 19:22 (Morphine Inj) 2 mg Q3H PRN IV PUSH 10/06/17 18:30 (Morphine Inj) 4 mg Q3H PRN IV PUSH 10/06/17 18:30 10/07/17 01:40 (Xanax) 1 mg HS PRN PO 10/06/17 18:45 (Norvasc) 5 mg DAILY PO 10/06/17 20:00 10/07/17 09:49 (Cozaar) 100 mg DAILY PO 10/07/17 09:00 10/07/17 09:50 (Vitamin B1) 100 mg DAILY PO 10/07/17 09:00 10/07/17 09:49 Patient Own Medication PT OWN MED: (Desvenlafaxine ER 24... DAILY PO 10/07/17 09:00 Future Hold (Protonix) 40 mg DAILY@0600 PO 10/07/17 06:00 10/07/17 05:17 (Synthroid) 150 mcg DAILY PO 10/07/17 09:00 10/07/17 09:49 (Theragran) 1 tab DAILY PO 10/07/17 09:00 10/07/17 09:50 (Creon 6-19-30) 1 cap TIDPC PO 10/07/17 09:30 10/07/17 09:49 (Synthroid) 25 mcg DAILY@0600 PO 10/07/17 06:00 10/07/17 05:17 (Trandate Inj) 10 mg Q6H PRN IV PUSH 10/06/17 20:30 10/06/17 22:28 Dextrose/Lactated Ringer's 1,000 ml @ 100 mls/hr Q10H IV 10/06/17 20:30 10/07/17 06:30 (Apresoline Inj) 10 mg Q6H PRN IV PUSH 10/07/17 00:00 10/07/17 06:31 (Lopressor) 50 mg Q12HR PO 10/07/17 10:30 10/07/17 10:55 Urinary Catheter: Yes Assessment to: Continue Honeycutt insert reason: Pelvic Fractures Vascular Central Line Catheter: No A/P Problem List: (1) Fall ICD Code: W19.XXXA - Unspecified fall, initial encounter Status: Acute (2) Alcohol intoxication ICD Code: F10.929 - Alcohol use, unspecified with intoxication, unspecified (3) Alcohol withdrawal delirium, acute, hyperactive ICD Code: F10.231 - Alcohol dependence with withdrawal delirium (4) Metabolic acidosis ICD Code: E87.2 - Acidosis (5) Hyperglycemia ICD Code: R73.9 - Hyperglycemia, unspecified (6) Transaminitis ICD Code: R74.0 - Nonspecific elevation of levels of transaminase and lactic acid dehydrogenase [LDH] (7) Intertrochanteric fracture of right hip ICD Code: S72.141A - Displaced intertrochanteric fracture of right femur, initial encounter for closed fracture Status: Acute (8) Uncontrolled hypertension ICD Code: I10 - Essential (primary) hypertension (9) Hypothyroid ICD Code: E03.9 - Hypothyroidism Status: Chronic (10) Depression ICD Code: F32.9 - Depression Status: Chronic Assessment and Plan (1) Fall Plan: Patient states she slipped and fell, denies loss of consciousness. Workup reveals negative head CT. Chest x-ray with mild cardiomegaly. No acute focal pulmonary infiltrate or pulmonary vascular congestion. Cervical spine CT shows degenerative changes without fracture. Hip and pelvis x-ray shows mildly displaced intertrochanteric fracture. (2) Alcohol intoxication Plan: Alcohol level on admission is 228 likely contributing to increased risk of falls. (3) Alcohol withdrawal delirium, acute, hyperactive Plan: Patient currently with tremors, slight tachycardia with heart rate of 96 and hypertensive with a systolic blood pressure in the 180s. Continue CIWA protocol with benzodiazepines. (4) Metabolic acidosis ICD Code: E87.2 - Acidosis Plan: Non-anion gap metabolic acidosis. Likely secondary to alcohol intoxication. Continue to monitor BMP. Will place on IV fluids. 2/10 Resolved after IV fluids. Continue while npo and awaiting surgery. (5) Hyperglycemia Plan: Secondary to stress hyperglycemia. Upon review of records the patient has had a recent hemoglobin A1c on October 17, 2016 which was 4.6. I will recheck hemoglobin A1c. (6) Transaminitis ICD Code: R74.0 - Nonspecific elevation of levels of transaminase and lactic acid dehydrogenase [LDH] Plan: The patient has had elevated AST since September 26, 2017. Suspect related to alcohol ingestion. However since patient has been a long-standing drinker I will order liver ultrasound, hepatitis profile and continue to monitor liver function tests. (7) Intertrochanteric fracture of right hip ICD Code: S72.141A - Displaced intertrochanteric fracture of right femur, initial encounter for closed fracture Status: Acute (8) Uncontrolled hypertension ICD Code: I10 - Essential (primary) hypertension Plan: Blood pressure control likely worst with alcohol withdrawal. I will continue home antihypertensive medications, the patient has been placed on CIWA protocol. We will place on Vasotec as needed for systolic blood pressure more than 160. 2/10 BP still severely elevated. Started Metoprolol 50 mg po Q 12 hrs. Continue to monitor vital signs. (9) Hypothyroid Plan: Continue levothyroxine. Will check TSH and free T4. (10) Depression Plan: Continue desvenlafaxine and alprazolam as needed for anxiety. Seems stable. Assessment and Plan GI prophylaxis: Place of PPI. DVT prophylaxis: SCDs, heparin SQ. Discharge Planning Patient for OR for surgical repair. Problem Qualifiers (1) Fall: Qualified Codes: W19.XXXA - Unspecified fall, initial encounter (2) Alcohol intoxication: Qualified Codes: F10.921 - Alcohol use, unspecified with intoxication delirium (3) Intertrochanteric fracture of right hip: Qualified Codes: S72.141A - Displaced intertrochanteric fracture of right femur , initial encounter for closed fracture (4) Hypothyroid: Qualified Codes: E03.9 - Hypothyroidism, unspecified (5) Depression: Qualified Codes: F32.9 - Major depressive disorder, single episode, unspecified Yuri Wesley MD Oct 07, 2017 14:46
[2017-10-07] MEDS ORDERED: POTASSIUM CHLORIDE 10 MEQ CONTROLLED RELEASE TAB PO ONE (15:00)
[2017-10-07] MEDS: LORazepam 1 MG TAB PO PRN (16:16)
[2017-10-07] MEDS ORDERED: GENTAMICIN SULFATE 80 MG/2 ML VIAL ONE (16:25)
[2017-10-07] MEDS: ALPRAZolam 1 MG TAB PO PRN (19:42)
[2017-10-08] VITALS (10 sets, daily range): BP systolic 137–157; BP diastolic 70–84; PULSE 72–92; RESP 17–24; TEMP 98.3–99.3; O2SAT 95–97
--- NOTE | 2017-10-08 00:22 | EKG ---
Date Performed: 10/06/2017 Time Performed: 12:12:15 PTAGE: 72 years EKG: Sinus rhythm BASELINE ARTIFACT PREVIOUS TRACING : 09/19/2017 11.24 Compared to prior tracing, baseline artifact makes c omparison difficult, but probably no significant change DOCTOR: Vinicius Rogers Interpretating Date/Time 10/08/2017 00:20:50
[2017-10-08] MEDS: MORPHINE SULFATE 4 MG/ML INJ IV PUSH PRN (04:26)
[2017-10-08] MEDS: LORazepam 2 MG/ML VIAL IV PUSH PRN (04:26)
[2017-10-08] MEDS: DEXTROSE 5%-LACTATED RING INJ 1,000 ML IV SCH (04:27)
[2017-10-08] MEDS: PANTOPRAZOLE SOD 40 MG DELAYED RELEASE TAB PO SCH (05:01)
[2017-10-08] MEDS: LEVOTHYROXINE SODIUM 25 MCG TAB PO SCH (05:01)
[2017-10-08] MEDS: HEPARIN SODIUM - SQ 10,000 UNITS/ML VIAL SQ SCH ×3 (07:56→23:20)
[2017-10-08] MEDS: THIAMINE HCL 100 MG TAB PO SCH (08:07)
[2017-10-08] MEDS: LEVOTHYROXINE SODIUM 150 MCG TAB PO SCH (08:08)
[2017-10-08] MEDS: LOSARTAN 50 MG TAB PO SCH (08:08)
[2017-10-08] MEDS: ACETAMINOPHEN/HYDROcodone 325 MG/5 MG TAB PO PRN (08:09)
[2017-10-08] MEDS: DOCUSATE SODIUM 50 MG/SENNA 8.6 MG TAB PO SCH ×2 (08:09→20:33)
[2017-10-08] MEDS: LIPASE/PROTEASE/AMYLASE (6,000/19,000/30,000) CAP PO SCH ×3 (08:09→18:30)
[2017-10-08] MEDS: amLODIPine BESYLATE 5 MG TAB PO SCH (08:09)
[2017-10-08] MEDS: SODIUM CHLORIDE 0.9% FLUSH 10 ML FLUSH IV FLUSH SCH ×3 (08:09→21:00)
[2017-10-08] MEDS: MULTIVITAMIN TAB PO SCH (08:09)
[2017-10-08] MEDS: METOPROLOL TARTRATE 50 MG TAB PO SCH ×2 (08:09→20:33)
[2017-10-08] MEDS: LORazepam 1 MG TAB PO PRN (08:09)
[2017-10-08] MEDS ORDERED: VANCOMYCIN HCL 1000 MG VIAL ONE (08:36)
[2017-10-08] MEDS ORDERED: SODIUM CHLOR 0.9% 250 ML INJ 250 ML ONE (08:37)
[2017-10-08] MEDS ORDERED: ceFAZolin INJ 1,000 MG VIAL ONE (08:37)
[2017-10-08] MEDS ORDERED: GENTAMICIN SULFATE 80 MG/2 ML VIAL ONE (08:37)
--- NOTE | 2017-10-08 09:23 | EKG ---
Date Performed: 10/07/2017 Time Performed: 05:50:04 PTAGE: 72 years EKG: Sinus rhythm . ST junctional depression is nonspecific Borderline ECG PREVIOUS TRACING : 10/06/2017 12.12 Since the prior tracing, there has been no significant win DOCTOR: Vinicius Rogers Interpretating Date/Time 10/08/2017 09:22:49
[2017-10-08 10:31] LABS: HEMATOCRIT 27.6 % (35.0-46.0); HEMOGLOBIN 9.7 GM/DL (11.6-15.3); MEAN CELL VOLUME 98.2 FL (80.0-100.0); MEAN CORPUSCULAR HEMOGLOBIN 34.4 PG (27.0-34.0); MEAN PLATELET VOLUME 7.2 FL (7.0-11.0); PLATELET COUNT 183 TH/MM3 (150-450); RED BLOOD COUNT 2.81 MIL/MM3 (4.00-5.30); RED CELL DISTRIBUTION WIDTH 15.5 % (11.6-17.2)
--- NOTE | 2017-10-08 10:50 | HHI.PR ---
Subjective Remarks BP elevated into the 150's. Pain controlled. Patient denies fevers or chills. Tremors improved. Denies hallucinations. Objective Vitals Vital Signs Date Time Temp Pulse Resp B/P (MAP) Pulse Ox O2 Delivery O2 Flow Rate FiO2 10/08/17 06:00 78 10/08/17 04:31 15 10/08/17 04:00 99.3 82 18 157/79 (105) 95 10/08/17 04:00 87 10/08/17 02:00 80 10/08/17 00:00 82 10/08/17 00:00 99.0 85 17 155/74 (101) 97 10/07/17 22:00 90 10/07/17 20:00 85 10/07/17 20:00 98.9 106 25 126/62 (83) 99 10/07/17 18:00 78 10/07/17 16:00 76 10/07/17 16:00 99.2 78 24 177/87 (117) 99 10/07/17 14:00 68 10/07/17 12:00 99.0 72 20 154/88 (110) 96 10/07/17 12:00 72 I/O 10/07/17 10/07/17 10/07/17 10/08/17 10/08/17 10/08/17 07:00 15:00 23:00 07:00 15:00 23:00 Intake Total 0 ml 720 ml 1000 ml Output Total 650 ml 850 ml 700 ml Balance -650 ml 0 ml -130 ml 300 ml Intake Oral 0 ml 720 ml IV Total 1000 ml Output Urine Total 650 ml 850 ml 700 ml # Bowel Movements 0 0 Result Diagram: 10/06/17 1100 10/07/17 0609 Imaging Last Impressions Hip and Pelvis X-Ray 10/06/171051 Signed Impressions: Service Date/Time: Friday, October 06, 2017 11:26 - CONCLUSION: Mildly displaced intertrochanteric fracture. Mohinder Apodaca MD Head CT 10/06/17 105 Signed Impressions: Service Date/Time: Friday, October 06, 2017 12:18 - CONCLUSION: 1. No hemorrhage. 2. Nonspecific white matter changes. 3. Facial soft tissue swelling. Mohinder Apodaca MD Chest X-Ray 10/06/17 105 Signed Impressions: Service Date/Time: Friday, October 06, 2017 11:26 - CONCLUSION: Mild cardiomegaly. No acute focal pulmonary infiltrate or pulmonary vascular congestion. Trey Quiroga MD Cervical Spine CT 10/06/17 1052 Signed Impressions: Service Date/Time: Friday, October 06, 2017 12:21 - CONCLUSION: Degenerative changes without fracture. Mohinder Apodaca MD Objective Remarks GENERAL: This is a well-nourished, well-developed patient, nad. SKIN: No rashes, ecchymoses or lesions. Cool and dry. HEAD: Atraumatic. Normocephalic. No temporal or scalp tenderness. EYES: Pupils equal round and reactive. Extraocular motions intact. No scleral icterus. No injection or drainage. ENT: Nose without bleeding, purulent drainage or septal hematoma. Throat without erythema, tonsillar hypertrophy or exudate. Uvula midline. Airway patent. NECK: Trachea midline. No JVD or lymphadenopathy. Supple, nontender, no meningeal signs. CARDIOVASCULAR: Regular rate and rhythm without murmurs, gallops, or rubs. RESPIRATORY: Clear to auscultation. Breath sounds equal bilaterally. No wheezes , rales, or rhonchi. GASTROINTESTINAL: Abdomen soft, non-tender, nondistended. No hepato-splenomegaly , or palpable masses. No guarding. MUSCULOSKELETAL: Extremities without clubbing, cyanosis, or edema. There is severe tenderness to palpation of the right hip. No effusion, or edema noted. No calf tenderness. Negative Homans sign bilaterally. The right lower extremity is shortened and externally rotated. There are good pedal pulses in bilateral extremities. NEUROLOGICAL: Awake and alert. Cranial nerves II through XII intact. Motor and sensory grossly within normal limits. Five out of 5 muscle strength in all muscle groups. Normal speech. No tremors observed. Medications and IVs Current Medications Medications (Trade) Dose Ordered Sig/Veronica Route Start Time Stop Time Status Last Admin (NS Flush) 2 ml UNSCH PRN IV FLUSH 10/06/17 15:15 (NS Flush) 2 ml BID IV FLUSH 10/06/17 21:00 10/08/17 08:09 (Tylenol) 650 mg Q4H PRN PO 10/06/17 15:15 (Zofran Inj) 4 mg Q6H PRN IVP 10/06/17 15:15 2/9/18 18:01 (Heparin Inj) 5,000 units Q8H SQ 10/06/17 16:00 10/07/17 23:26 (Narcan Inj) 0.4 mg UNSCH PRN IV PUSH 10/06/17 15:15 (Olivia-Colace) 1 tab BID PO 10/06/17 21:00 10/08/17 08:09 (Milk Of Magnesia Liq) 30 ml Q12H PRN PO 10/06/17 15:15 (Senokot) 17.2 mg Q12H PRN PO 10/06/17 15:15 (Dulcolax Supp) 10 mg DAILY PRN RECTAL 10/06/17 15:15 (Lactulose Liq) 30 ml DAILY PRN PO 10/06/17 15:15 (Morphine Inj) 2 mg Q3H PRN IV 10/06/17 17:30 10/07/17 10:57 ([place] 5-325 Mg) 1 tab Q4H PRN PO 10/06/17 17:30 10/08/17 08:09 (Romazicon Inj) 0.2 mg Q1M PRN IV PUSH 10/06/17 18:15 (Ativan) 1 mg Q4H PRN PO 10/06/17 18:15 10/08/17 08:09 (Ativan Inj) 1 mg Q4H PRN IV PUSH 10/06/17 18:15 (Ativan) 2 mg Q2H PRN PO 10/06/17 18:15 10/07/17 18:52 (Ativan Inj) 2 mg Q2H PRN IV PUSH 10/06/17 18:15 10/07/17 23:27 (Ativan Inj) 2 mg Q1H PRN IV PUSH 10/06/17 18:15 10/08/17 04:26 (Ativan Inj) 2 mg Q15M PRN IV PUSH 10/06/17 18:15 10/06/17 19:22 (Morphine Inj) 2 mg Q3H PRN IV PUSH 10/06/17 18:30 10/08/17 10:47 (Morphine Inj) 4 mg Q3H PRN IV PUSH 10/06/17 18:30 10/08/17 04:26 (Xanax) 1 mg HS PRN PO 10/06/17 18:45 10/07/17 19:42 (Norvasc) 5 mg DAILY PO 10/06/17 20:00 10/08/17 08:09 (Cozaar) 100 mg DAILY PO 10/07/17 09:00 10/08/17 08:08 (Vitamin B1) 100 mg DAILY PO 10/07/17 09:00 10/08/17 08:07 Patient Own Medication PT OWN MED: (Desvenlafaxine ER 24... DAILY PO 10/07/17 09:00 Future Hold (Protonix) 40 mg DAILY@0600 PO 10/07/17 06:00 10/08/17 05:01 (Synthroid) 150 mcg DAILY PO 10/07/17 09:00 10/08/17 08:08 (Theragran) 1 tab DAILY PO 10/07/17 09:00 10/08/17 08:09 (Creon 6-19-30) 1 cap TIDPC PO 10/07/17 09:30 10/08/17 08:09 (Synthroid) 25 mcg DAILY@0600 PO 10/07/17 06:00 10/08/17 05:01 (Trandate Inj) 10 mg Q6H PRN IV PUSH 10/06/17 20:30 10/06/17 22:28 (Apresoline Inj) 10 mg Q6H PRN IV PUSH 10/07/17 00:00 10/07/17 18:51 (Lopressor) 50 mg Q12HR PO 10/07/17 10:30 10/08/17 08:09 Potassium Chloride/Sodium Chloride 1,000 ml @ 84 mls/hr [id number] IV 10/08/17 11:45 Urinary Catheter: No Vascular Central Line Catheter: No A/P Problem List: (1) Fall ICD Code: W19.XXXA - Unspecified fall, initial encounter Status: Acute (2) Alcohol intoxication ICD Code: F10.929 - Alcohol use, unspecified with intoxication, unspecified (3) Alcohol withdrawal delirium, acute, hyperactive ICD Code: F10.231 - Alcohol dependence with withdrawal delirium (4) Metabolic acidosis ICD Code: E87.2 - Acidosis (5) Hyperglycemia ICD Code: R73.9 - Hyperglycemia, unspecified (6) Transaminitis ICD Code: R74.0 - Nonspecific elevation of levels of transaminase and lactic acid dehydrogenase [LDH] (7) Intertrochanteric fracture of right hip ICD Code: S72.141A - Displaced intertrochanteric fracture of right femur, initial encounter for closed fracture Status: Acute (8) Uncontrolled hypertension ICD Code: I10 - Essential (primary) hypertension (9) Hypothyroid ICD Code: E03.9 - Hypothyroidism Status: Chronic (10) Depression ICD Code: F32.9 - Depression Status: Chronic Assessment and Plan (1) Fall Plan: Patient states she slipped and fell, denies loss of consciousness. Workup reveals negative head CT. Chest x-ray with mild cardiomegaly. No acute focal pulmonary infiltrate or pulmonary vascular congestion. Cervical spine CT shows degenerative changes without fracture. Hip and pelvis x-ray shows mildly displaced intertrochanteric fracture. (2) Alcohol intoxication Plan: Alcohol level on admission is 228 likely contributing to increased risk of falls. (3) Alcohol withdrawal delirium, acute, hyperactive Plan: Patient currently with tremors, slight tachycardia with heart rate of 96 and hypertensive with a systolic blood pressure in the 180s. 10/08 Tremors much improved. Continue CIWA protocol with benzodiazepines. (4) Metabolic acidosis ICD Code: E87.2 - Acidosis Plan: Non-anion gap metabolic acidosis. Likely secondary to alcohol intoxication. Continue to monitor BMP. Will place on IV fluids. / Resolved after IV fluids. Continue while npo and awaiting surgery. (5) Hyperglycemia Plan: Secondary to stress hyperglycemia. Upon review of records the patient has had a recent hemoglobin A1c on October 17, 2016 which was 4.6. 10/08 HbA1C 4.7 - diabetes ruled out. (6) Transaminitis ICD Code: R74.0 - Nonspecific elevation of levels of transaminase and lactic acid dehydrogenase [LDH] Plan: The patient has had elevated AST since September 26, 2017. Suspect related to alcohol ingestion. However since patient has been a long-standing drinker I will order liver ultrasound, hepatitis profile and continue to monitor liver function tests. 10/08 Transaminitis resolved - likely related to etoh ingestion. (7) Intertrochanteric fracture of right hip Status: Acute Plan: Continue Pain control, ortho consulted. for OR today (8) Uncontrolled hypertension Plan: Blood pressure control likely worst with alcohol withdrawal. I will continue home antihypertensive medications, the patient has been placed on CIWA protocol. We will place on Vasotec as needed for systolic blood pressure more than 160. 10/07 BP still severely elevated. Started Metoprolol 50 mg po Q 12 hrs. Continue to monitor vital signs. 10/08 BP improving, Continue Metoprolol 50 mg po Q 12 hrs. (9) Hypothyroid Plan: Continue levothyroxine. 10/08 TSH and free t4 normal. (10) Depression Plan: Continue desvenlafaxine and alprazolam as needed for anxiety. Seems stable. GI prophylaxis: Place of PPI. DVT prophylaxis: SCDs, heparin SQ. Discharge Planning Patient for OR for surgical repair. Problem Qualifiers (1) Fall: Qualified Codes: W19.XXXA - Unspecified fall, initial encounter (2) Alcohol intoxication: Qualified Codes: F10.921 - Alcohol use, unspecified with intoxication delirium (3) Intertrochanteric fracture of right hip: Qualified Codes: S72.141A - Displaced intertrochanteric fracture of right femur , initial encounter for closed fracture (4) Hypothyroid: Qualified Codes: E03.9 - Hypothyroidism, unspecified (5) Depression: Qualified Codes: F32.9 - Major depressive disorder, single episode, unspecified Yuri Wesley MD Oct 08, 2017 10:50
[2017-10-08 10:57] LABS: BICARBONATE 25.8 MEQ/L (21.0-32.0); CALCIUM 8.6 MG/DL (8.5-10.1); CREATININE 0.68 MG/DL (0.50-1.00); MAGNESIUM 1.3 MG/DL (1.5-2.5)
[2017-10-08 10:58] LABS: PHOSPHORUS 2.6 MG/DL (2.5-4.9)
[2017-10-08 11:07] LABS: FREE T4 1.41 NG/DL (0.76-1.46)
[2017-10-08] MEDS ORDERED: POTASSIUM CHLORIDE 10 MEQ CONTROLLED RELEASE TAB PO ONE (11:45)
[2017-10-08] MEDS ORDERED: PROPOFOL 200 MG/20 ML AMP IV ONE (12:00)
[2017-10-08] MEDS ORDERED: PHENYLEPH/NS 1000 MCG/10 ML SYR IV ONE (12:00)
[2017-10-08] MEDS ORDERED: ePHEDrine/NS 25 MG/5 ML SYRINGE IV ONE (12:00)
[2017-10-08] MEDS ORDERED: ONDANSETRON HCL 4 MG/2 ML VIAL IV ONE (12:00)
[2017-10-08] MEDS ORDERED: DEXAMETHASONE SOD PHOS 4 MG/ML VIAL IV ONE (12:00)
[2017-10-08] MEDS ORDERED: SODIUM CHLORIDE 0.9% 20 ML VIAL IV ONE (12:00)
[2017-10-08] MEDS ORDERED: SUCCINYLCHOLINE CHLORIDE 100 MG/5 ML SYRINGE IV PUSH ONE (12:00)
[2017-10-08] MEDS ORDERED: ROCURONIUM INJ 50 MG/5 ML SYRINGE IV PUSH ONE (12:00)
[2017-10-08] MEDS ORDERED: LIDOCAINE HCL 1% PF 5 ML SYRINGE OTHER ONE (12:00)
[2017-10-08 13:03] LABS: HEMOGLOBIN A1C 4.7 % (4.3-6.0)
--- NOTE | 2017-10-08 14:55 | HHI.PR ---
cc: Ivette Shea MD Immediate Post Op Note Procedure Date: Oct 08, 2017 Pre Op Diagnosis: Right intertrochanteric femur fracture Post Op Diagnosis: Same Surgeon: Ivette Shea Day [facility] Home Provider(s): None Procedure: Intramedullary nail right intertrochanteric femur fracture Complications: None Specimen(s) removed: None Estimated blood loss: 100 cc Anesthesia: General Drains: None IVF Patient to: PACU Patient Condition: Good Implant/Devices: SEE IMPLANT LOG (if applicable) Date/Time of Procedure: SEE SURGICAL CARE RECORD Ivette Shea MD Oct 08, 2017 14:55
[2017-10-08] MEDS ORDERED: Post-op Orders (for Pharmacy) XX ONE (15:00)
[2017-10-08] MEDS ORDERED: SODIUM CHLORIDE 0.9% FLUSH 10 ML FLUSH IV FLUSH PRN (15:00)
[2017-10-08] MEDS ORDERED: MIDAZOLAM HCL 2 MG/2 ML VIAL ONE (15:19)
[2017-10-08] MEDS ORDERED: *morphine SULFATE 4 MG/ML PERIprocedure ONLY ONE ×2 (15:31→15:41)
[2017-10-08] MEDS: NS + KCL 40 MEQ INJ 1,000 ML IV SCH (15:45)
[2017-10-08] MEDS ORDERED: DO NOT ADM ANY ANTICOAGULANT DRUGS PRN (16:00)
--- NOTE | 2017-10-08 16:05 | RADRPT ---
EXAM DATE/TIME: 10/08/2017 14:35 [facility] COMPARISON: HIP RIGHT (AP&LAT 2/3VWS) W AP PELVIS, October 06, 2017, 11:26. INDICATIONS : Right hip fracture. Post op troch nail. MEDICAL HISTORY : Pancreatitis. A-fib. Left hip fracture. SURGICAL HISTORY : Left hip troch nail. ENCOUNTER: Initial ACUITY: 1 day PAIN SCORE: Non-responsive. LOCATION: Right hip. FINDINGS: C-arm matrix views in the OR reveal placement of an internal fixation device sliding nail with intram edullary ride transfixing the intertrochanteric fracture apex alignment and approximation of fragment s CONCLUSION: Surgical fixation intertrochanteric fracture with excellent alignment and approximation of fragments Aneudy Self MD on October 08, 2017 at 16:02 Board Certified Radiologist. This report was verified electronically.
[2017-10-08] MEDS ORDERED: *LABETALOL HCL 100 MG/20 ML VIAL PERIprocedural Use ONLY ONE (16:15)
--- NOTE | 2017-10-08 17:59 | RADRPT ---
EXAM DATE/TIME: 10/08/2017 16:23 [facility] COMPARISON: CT ABDOMEN & PELVIS W CONTRAST, July 04, 2017, 18:02. US ABDOMEN - COMPLETE, July 05, 2017, 9:17. CT ABDOMEN & PELVIS W/O CONTRAST, September 09, 2017, 11:34. INDICATIONS : Increased lab values. MEDICAL HISTORY : Hypothyroid. CVA. CAD. Hypertension. Panacreatitis. IBS. GERD. SURGICAL HISTORY : Appendectomy. Cholecystectomy. Hysterectomy. ENCOUNTER: [facility]ela ACUITY: 1 day PAIN SCORE: Nonresponsive. LOCATION: Bilateral upper quadrant MEASUREMENTS: LIVER: 14.4 cm length COMMON DUCT: 9 mm RIGHT KIDNEY: 9.7 x 3.0 x 5.0 cm SPLEEN: 9.9 cm length FINDINGS: Right kidney demonstrates multiple small cysts measuring up to 1.2 cm in size. There is a 3 or 4 mm gallstone mobile with no evidence of pericholecystic fluid or thickened wall. Common bile duct is dilated at 9 mm. Liver is normal other than cysts small in nature dispersed throughout which are note d on prior remote studies. Pancreas is limited in visualization appears normal CONCLUSION: Gallstones. Common bile duct is dilated at 9 mm without etiology but no stone is seen within this. Pa ncreas appears normal but on prior CT scan demonstrates calcifications and chronic pancreatitis. Multiple stable liver cysts and right renal cysts Aneudy Self MD on Sep at 17:50 Board Certified Radiologist. This report was verified electronically.
[2017-10-09] VITALS (12 sets, daily range): BP systolic 129–151; BP diastolic 56–71; PULSE 62–98; RESP 15–21; TEMP 98.1–98.7; O2SAT 94–98
[2017-10-09] MEDS: ALPRAZolam 1 MG TAB PO PRN ×2 (00:08→20:38)
[2017-10-09] MEDS: ACETAMINOPHEN/HYDROcodone 325 MG/5 MG TAB PO PRN ×2 (02:36→20:38)
[2017-10-09] MEDS: LORazepam 1 MG TAB PO PRN (03:09)
[2017-10-09] MEDS: MORPHINE SULFATE 4 MG/ML INJ IV PUSH PRN ×5 (03:09→22:22)
[2017-10-09] MEDS: NS + KCL 40 MEQ INJ 1,000 ML IV SCH ×3 (03:37→19:06)
[2017-10-09] MEDS: LEVOTHYROXINE SODIUM 25 MCG TAB PO SCH (04:58)
[2017-10-09] MEDS: PANTOPRAZOLE SOD 40 MG DELAYED RELEASE TAB PO SCH (04:58)
[2017-10-09 05:37] LABS: AUTOMATED NEUTROPHIL # 4.6 TH/MM3 (1.8-7.7); BASOPHIL % 0.1 % (0.0-2.0); HEMATOCRIT 24.1 % (35.0-46.0); HEMOGLOBIN 8.4 GM/DL (11.6-15.3); LYMPH % 15.8 % (9.0-44.0); MEAN CELL VOLUME 97.3 FL (80.0-100.0); MEAN CORPUSCULAR HEMOGLOBIN 34.1 PG (27.0-34.0); MEAN CORPUSCULAR HGB CONC 35.1 % (32.0-36.0); MEAN PLATELET VOLUME 7.4 FL (7.0-11.0); NEUT % 69.1 % (16.0-70.0); PLATELET COUNT 174 TH/MM3 (150-450); RED BLOOD COUNT 2.47 MIL/MM3 (4.00-5.30); RED CELL DISTRIBUTION WIDTH 15.7 % (11.6-17.2); WHITE BLOOD COUNT 6.6 TH/MM3 (4.0-11.0)
[2017-10-09 06:09] LABS: ALBUMIN 2.4 GM/DL (3.4-5.0); BICARBONATE 23.9 MEQ/L (21.0-32.0); CALCIUM 7.3 MG/DL (8.5-10.1); CALCIUM-PROTEIN CORRECTED 8.1 MG/DL (8.5-10.1); CREATININE 0.6 MG/DL (0.50-1.00); TOTAL BILIRUBIN ADULT 0.7 MG/DL (0.2-1.0); TOTAL PROTEIN 5.6 GM/DL (6.4-8.2)
--- NOTE | 2017-10-09 07:50 | PD.ORT.PN ---
Subjective Subjective Remarks Patient resting comfortable this morning. States her right hip pain is improved. Objective Vitals Vital Signs Date Time Temp Pulse Resp B/P (MAP) Pulse Ox O2 Delivery O2 Flow Rate FiO2 10/09/17 06:00 79 10/09/17 04:00 79 10/09/17 04:00 98.1 79 21 140/70 (93) 95 10/09/17 03:14 15 10/09/17 03:14 15 10/09/17 02:00 78 10/09/17 00:00 98.4 75 17 129/56 (80) 94 10/09/17 00:00 75 10/08/17 22:00 92 10/08/17 21:33 20 10/08/17 20:00 98.3 92 20 137/70 (92) 96 10/08/17 20:00 92 10/08/17 18:00 84 10/08/17 16:18 98.4 75 18 143/78 (99) 97 Nasal Cannula 2 10/08/17 16:12 83 18 198/97 (130) 96 Nasal Cannula 2 10/08/17 16:00 82 18 175/98 (123) 96 Nasal Cannula 2 10/08/17 15:45 82 16 174/88 (116) 96 Nasal Cannula 3 10/08/17 15:30 80 16 165/85 (111) 96 Nasal Cannula 3 10/08/17 15:15 82 16 159/78 (105) 95 Nasal Cannula 3 10/08/17 15:07 98.4 83 16 166/85 (112) 94 Nasal Cannula 3 10/08/17 12:00 98.4 77 19 154/76 (102) 95 10/08/17 12:00 77 10/08/17 10:00 72 10/08/17 08:00 98.7 80 24 146/84 (104) 97 10/08/17 08:00 80 I/O 10/08/17 10/08/17 10/08/17 10/09/17 10/09/17 10/09/17 07:00 15:00 23:00 07:00 15:00 23:00 Intake Total 1000 ml 800 ml 800 ml 1200 ml Output Total 700 ml 150 ml 1275 ml 1000 ml Balance 300 ml 650 ml -475 ml 200 ml Intake Oral 100 ml IV Total 1000 ml 800 ml 1200 ml Other 700 ml Output Urine Total 700 ml 100 ml 1275 ml 1000 ml Estimated Blood Loss 50 ml # Bowel Movements 0 0 0 Result Diagram: 10/09/17 0509 10/09/17508 Objective Remarks Awake, alert, distress Right lower extremity: dressings in place without any significant drainage. Neurovascularly intact distally. Brisk cap refill. Negative Homans. Assessment & Plan Assessment and Plan 72yo F with R intertrochanteric femur fracture, POD#1 s/p IMN R femur 1. Partial weightbearing 50% right lower extremity 2 Physical therapy for mobilization 3. Lovenox for DVT prophylaxis while in house. Plan to switch to xarelto upon discharge 4. Dressing changes to start on postop day 2 5. F/u in clinic 2 weeks after discharge. Ivette Shea MD Oct 09, 2017 07:50
[2017-10-09] MEDS: SODIUM CHLORIDE 0.9% FLUSH 10 ML FLUSH IV FLUSH SCH ×4 (08:01→21:00)
[2017-10-09] MEDS: LEVOTHYROXINE SODIUM 150 MCG TAB PO SCH (08:13)
[2017-10-09] MEDS: METOPROLOL TARTRATE 50 MG TAB PO SCH ×2 (08:13→20:38)
[2017-10-09] MEDS: THIAMINE HCL 100 MG TAB PO SCH (08:13)
[2017-10-09] MEDS: LOSARTAN 50 MG TAB PO SCH (08:13)
[2017-10-09] MEDS: LIPASE/PROTEASE/AMYLASE (6,000/19,000/30,000) CAP PO SCH ×3 (08:17→17:01)
[2017-10-09] MEDS: HEPARIN SODIUM - SQ 10,000 UNITS/ML VIAL SQ SCH ×2 (08:17→16:03)
[2017-10-09] MEDS: DOCUSATE SODIUM 50 MG/SENNA 8.6 MG TAB PO SCH ×2 (08:17→20:38)
[2017-10-09] MEDS: amLODIPine BESYLATE 5 MG TAB PO SCH (08:17)
[2017-10-09] MEDS: MULTIVITAMIN TAB PO SCH (08:17)
[2017-10-09] MEDS ORDERED: CALCIUM CHLORIDE INJ 1 GM in SODIUM CHLORIDE 0.9% INJ 100 ML IV ONE (12:00)
[2017-10-09] MEDS: LORazepam 2 MG/ML VIAL IV PUSH PRN (15:08)
--- NOTE | 2017-10-09 17:13 | HHI.PR ---
Subjective Remarks Denies cp/sob. Afebrile. Patient retaining 700 cc of urine earlier. Pain controlled. Objective Vitals Vital Signs Date Time Temp Pulse Resp B/P (MAP) Pulse Ox O2 Delivery O2 Flow Rate FiO2 10/09/17 16:00 98.2 76 15 143/67 (92) 98 10/09/17 16:00 86 10/09/17 14:00 75 10/09/17 12:00 72 10/09/17 12:00 98.4 72 19 134/65 (88) 98 10/09/17 10:00 62 10/09/17 08:00 98.2 83 15 151/71 (97) 98 10/09/17 08:00 71 10/09/17 06:00 79 10/09/17 04:00 79 10/09/17 04:00 98.1 79 21 140/70 (93) 95 10/09/17 03:14 15 10/09/17 03:14 15 10/09/17 02:00 78 10/09/17 00:00 98.4 75 17 129/56 (80) 94 10/09/17 00:00 75 10/08/17 22:00 92 10/08/17 21:33 20 10/08/17 20:00 98.3 92 20 137/70 (92) 96 10/08/17 20:00 92 10/08/17 18:00 84 I/O 10/08/17 10/08/17 10/08/17 10/09/17 10/09/17 10/09/17 07:00 15:00 23:00 07:00 15:00 23:00 Intake Total 1000 ml 800 ml 800 ml 1200 ml 110 ml Output Total 700 ml 150 ml 1275 ml 1000 ml Balance 300 ml 650 ml -475 ml 200 ml 110 ml Intake Oral 100 ml IV Total 1000 ml 800 ml 1200 ml 110 ml Other 700 ml Output Urine Total 700 ml 100 ml 1275 ml 1000 ml Estimated Blood Loss 50 ml # Bowel Movements 0 0 0 Result Diagram: 10/09/17 0509 10/09/17 0509 Imaging Last Impressions Liver Ultrasound 10/08/17 0000 Signed Impressions: Service Date/Time: Sunday, October 08, 2017 16:23 - CONCLUSION: Gallstones. Common bile duct is dilated at 9 mm without etiology but no stone is seen within this. Pancreas appears normal but on prior CT scan demonstrates calcifications and chronic pancreatitis. Multiple stable liver cysts and right renal cysts Aneudy Self MD Hip X-Ray 10/08/17 0000 Signed Impressions: Service Date/Time: Sunday, October 08, 2017 14:35 - CONCLUSION: Surgical fixation intertrochanteric fracture with excellent alignment and approximation of fragments Aneudy Self MD Hip and Pelvis X-Ray 10/06/17 1052 Signed Impressions: Service Date/Time: Friday, October 06, 2017 11:26 - CONCLUSION: Mildly displaced intertrochanteric fracture. Mohinder Apodaca MD Head CT 10/06/17 1052 Signed Impressions: Service Date/Time: Friday, October 06, 2017 12:18 - CONCLUSION: 1. No hemorrhage. 2. Nonspecific white matter changes. 3. Facial soft tissue swelling. Mohinder Apodaca MD Chest X-Ray 10/06/17 1052 Signed Impressions: Service Date/Time: Friday, October 06, 2017 11:26 - CONCLUSION: Mild cardiomegaly. No acute focal pulmonary infiltrate or pulmonary vascular congestion. Trey Quiroga MD Cervical Spine CT 10/06/17 1052 Signed Impressions: Service Date/Time: Friday, October 06, 2017 12:21 - CONCLUSION: Degenerative changes without fracture. Mohinder Apodaca MD Objective Remarks GENERAL: This is a well-nourished, well-developed patient, nad. SKIN: No rashes, ecchymoses or lesions. Cool and dry. HEAD: Atraumatic. Normocephalic. No temporal or scalp tenderness. EYES: Pupils equal round and reactive. Extraocular motions intact. No scleral icterus. No injection or drainage. ENT: Nose without bleeding, purulent drainage or septal hematoma. Throat without erythema, tonsillar hypertrophy or exudate. Uvula midline. Airway patent. NECK: Trachea midline. No JVD or lymphadenopathy. Supple, nontender, no meningeal signs. CARDIOVASCULAR: Regular rate and rhythm without murmurs, gallops, or rubs. RESPIRATORY: Clear to auscultation. Breath sounds equal bilaterally. No wheezes , rales, or rhonchi. GASTROINTESTINAL: Abdomen soft, non-tender, nondistended. No hepato-splenomegaly , or palpable masses. No guarding. MUSCULOSKELETAL: Extremities without clubbing, cyanosis, or edema. There is severe tenderness to palpation of the right hip. No effusion, or edema noted. No calf tenderness. Negative Homans sign bilaterally. There are good pedal pulses in bilateral extremities. NEUROLOGICAL: Awake and alert. Cranial nerves II through XII intact. Motor and sensory grossly within normal limits. Five out of 5 muscle strength in all muscle groups. Normal speech. No tremors observed. Medications and IVs Current Medications Medications (Trade) Dose Ordered Sig/Veronica Route Start Time Stop Time Status Last Admin (NS Flush) 2 ml UNSCH PRN IV FLUSH 10/06/17 15:15 (NS Flush) 2 ml BID IV FLUSH 10/06/17 21:00 10/09/17 08:17 (Tylenol) 650 mg Q4H PRN PO 10/06/17 15:15 10/08/17 20:33 (Zofran Inj) 4 mg Q6H PRN IVP 10/06/17 15:15 10/06/17 18:01 (Heparin Inj) 5,000 units Q8H SQ 10/06/17 16:00 10/09/17 16:03 (Narcan Inj) 0.4 mg UNSCH PRN IV PUSH 10/06/17 15:15 (Olivia-Colace) 1 tab BID PO 10/06/17 21:00 10/09/17 08:17 (Milk Of Magnesia Liq) 30 ml Q12H PRN PO 10/06/17 15:15 (Senokot) 17.2 mg Q12H PRN PO 10/06/17 15:15 (Dulcolax Supp) 10 mg DAILY PRN RECTAL 10/06/17 15:15 (Lactulose Liq) 30 ml DAILY PRN PO 10/06/17 15:15 (Morphine Inj) 2 mg Q3H PRN IV 10/06/17 17:30 10/07/17 10:57 ([place] 5-325 Mg) 1 tab Q4H PRN PO 10/06/17 17:30 10/09/17 02:36 (Romazicon Inj) 0.2 mg Q1M PRN IV PUSH 10/06/17 18:15 (Ativan) 1 mg Q4H PRN PO 10/06/17 18:15 10/09/17 03:09 (Ativan Inj) 1 mg Q4H PRN IV PUSH 10/06/17 18:15 10/08/17 18:00 (Ativan) 2 mg Q2H PRN PO 10/06/17 18:15 10/07/17 18:52 (Ativan Inj) 2 mg Q2H PRN IV PUSH 10/06/17 18:15 10/09/17 15:08 (Ativan Inj) 2 mg Q1H PRN IV PUSH 10/06/17 18:15 10/08/17 04:26 (Ativan Inj) 2 mg Q15M PRN IV PUSH 10/06/17 18:15 10/06/17 19:22 (Morphine Inj) 2 mg Q3H PRN IV PUSH 10/06/17 18:30 10/08/17 10:47 (Morphine Inj) 4 mg Q3H PRN IV PUSH 10/06/17 18:30 10/09/17 15:08 (Xanax) 1 mg HS PRN PO 10/06/17 18:45 10/09/17 00:08 (Norvasc) 5 mg DAILY PO 10/06/17 20:00 10/09/17 08:17 (Cozaar) 100 mg DAILY PO 10/07/17 09:00 10/09/17 08:13 (Vitamin B1) 100 mg DAILY PO 10/07/17 09:00 10/09/17 08:13 Patient Own Medication PT OWN MED: (Desvenlafaxine ER 24... DAILY PO 10/07/17 09:00 Future Hold (Protonix) 40 mg DAILY@0600 PO 10/07/17 06:00 10/09/17 04:58 (Synthroid) 150 mcg DAILY PO 10/07/17 09:00 10/09/17 08:13 (Theragran) 1 tab DAILY PO 10/07/17 09:00 10/09/17 08:17 (Creon 6-19-30) 1 cap TIDPC PO 10/07/17 09:30 10/09/17 17:01 (Synthroid) 25 mcg DAILY@0600 PO 10/07/17 06:00 10/09/17 04:58 (Trandate Inj) 10 mg Q6H PRN IV PUSH 10/06/17 20:30 10/06/17 22:28 (Apresoline Inj) 10 mg Q6H PRN IV PUSH 10/07/17 00:00 10/07/17 18:51 (Lopressor) 50 mg Q12HR PO 10/07/17 10:30 10/09/17 08:13 Potassium Chloride/Sodium Chloride 1,000 ml @ 84 mls/hr [id number] IV 10/08/17 11:45 10/09/17 03:37 (NS Flush) 2 ml UNSCH PRN IV FLUSH 10/08/17 15:00 (NS Flush) 2 ml BID IV FLUSH 10/08/17 21:00 A/P Problem List: (1) Fall ICD Code: W19.XXXA - Unspecified fall, initial encounter Status: Acute (2) Alcohol intoxication ICD Code: F10.929 - Alcohol use, unspecified with intoxication, unspecified (3) Alcohol withdrawal delirium, acute, hyperactive ICD Code: F10.231 - Alcohol dependence with withdrawal delirium (4) Metabolic acidosis ICD Code: E87.2 - Acidosis (5) Hyperglycemia ICD Code: R73.9 - Hyperglycemia, unspecified (6) Transaminitis ICD Code: R74.0 - Nonspecific elevation of levels of transaminase and lactic acid dehydrogenase [LDH] (7) Intertrochanteric fracture of right hip ICD Code: S72.141A - Displaced intertrochanteric fracture of right femur, initial encounter for closed fracture Status: Acute (8) Uncontrolled hypertension ICD Code: I10 - Essential (primary) hypertension (9) Hypothyroid ICD Code: E03.9 - Hypothyroidism Status: Chronic (10) Depression ICD Code: F32.9 - Depression Status: Chronic Assessment and Plan (1) Fall Plan: Patient states she slipped and fell, denies loss of consciousness. Workup reveals negative head CT. Chest x-ray with mild cardiomegaly. No acute focal pulmonary infiltrate or pulmonary vascular congestion. Cervical spine CT shows degenerative changes without fracture. Hip and pelvis x-ray shows mildly displaced intertrochanteric fracture. (2) Alcohol intoxication Plan: Alcohol level on admission is 228 likely contributing to increased risk of falls. (3) Alcohol withdrawal delirium, acute, hyperactive Plan: Patient currently with tremors, slight tachycardia with heart rate of 96 and hypertensive with a systolic blood pressure in the 180s. 10/08 Tremors much improved. Continue CIWA protocol with benzodiazepines. (4) Metabolic acidosis ICD Code: E87.2 - Acidosis Plan: Non-anion gap metabolic acidosis. Likely secondary to alcohol intoxication. Continue to monitor BMP. Will place on IV fluids. / Resolved after IV fluids. Continue while npo and awaiting surgery. (5) Hyperglycemia Plan: Secondary to stress hyperglycemia. Upon review of records the patient has had a recent hemoglobin A1c on October 17, 2016 which was 4.6. 10/08 HbA1C 4.7 - diabetes ruled out. (6) Transaminitis ICD Code: R74.0 - Nonspecific elevation of levels of transaminase and lactic acid dehydrogenase [LDH] Plan: The patient has had elevated AST since September 26, 2017. Suspect related to alcohol ingestion. However since patient has been a long-standing drinker I will order liver ultrasound, hepatitis profile and continue to monitor liver function tests. 10/08 Transaminitis resolved - likely related to etoh ingestion. (7) Intertrochanteric fracture of right hip Status: Acute Plan: The patient is status post right intramedullary fixation by orthopedic surgery. Pain control as per orthopedic surgery. (8) Uncontrolled hypertension Plan: Blood pressure control likely worst with alcohol withdrawal. I will continue home antihypertensive medications, the patient has been placed on CIWA protocol. We will place on Vasotec as needed for systolic blood pressure more than 160. 10/07 BP still severely elevated. Started Metoprolol 50 mg po Q 12 hrs. Continue to monitor vital signs. 10/09 BP improving, Continue Metoprolol 50 mg po Q 12 hrs. (9) Hypothyroid Plan: Continue levothyroxine. 10/08 TSH and free t4 normal. (10) Depression Plan: Continue desvenlafaxine and alprazolam as needed for anxiety. Seems stable. GI prophylaxis: Place of PPI. DVT prophylaxis: SCDs, heparin SQ. Discharge Planning Patient stable for transfer to the surgical floor. Problem Qualifiers (1) Fall: Qualified Codes: W19.XXXA - Unspecified fall, initial encounter (2) Alcohol intoxication: Qualified Codes: F10.921 - Alcohol use, unspecified with intoxication delirium (3) Intertrochanteric fracture of right hip: Qualified Codes: S72.141A - Displaced intertrochanteric fracture of right femur , initial encounter for closed fracture (4) Hypothyroid: Qualified Codes: E03.9 - Hypothyroidism, unspecified (5) Depression: Qualified Codes: F32.9 - Major depressive disorder, single episode, unspecified Gomes Campos,Yuri MD Oct 09, 2017 17:13
[2017-10-09] MEDS: LORazepam 2 MG TAB PO PRN (22:36)
[2017-10-10] VITALS (10 sets, daily range): BP systolic 123–158; BP diastolic 67–79; PULSE 73–96; RESP 15–21; TEMP 97.3–100.5; O2SAT 95–98
[2017-10-10] MEDS: HEPARIN SODIUM - SQ 10,000 UNITS/ML VIAL SQ SCH ×4 (02:56→23:33)
[2017-10-10] MEDS: LEVOTHYROXINE SODIUM 25 MCG TAB PO SCH (05:07)
[2017-10-10] MEDS: PANTOPRAZOLE SOD 40 MG DELAYED RELEASE TAB PO SCH (05:07)
[2017-10-10] MEDS: MORPHINE SULFATE 4 MG/ML INJ IV PUSH PRN ×2 (05:31→10:28)
[2017-10-10] MEDS: NS + KCL 40 MEQ INJ 1,000 ML IV SCH ×2 (05:31→18:17)
[2017-10-10 05:45] LABS: BICARBONATE 24.6 MEQ/L (21.0-32.0); CALCIUM 8.7 MG/DL (8.5-10.1); CREATININE 0.72 MG/DL (0.50-1.00)
[2017-10-10 07:15] LABS: HEMATOCRIT 25.7 % (35.0-46.0); HEMOGLOBIN 9.1 GM/DL (11.6-15.3); MEAN CELL VOLUME 99.1 FL (80.0-100.0); MEAN CORPUSCULAR HGB CONC 35.3 % (32.0-36.0); PLATELET COUNT 215 TH/MM3 (150-450); RED BLOOD COUNT 2.59 MIL/MM3 (4.00-5.30); RED CELL DISTRIBUTION WIDTH 15.7 % (11.6-17.2); WHITE BLOOD COUNT 7.6 TH/MM3 (4.0-11.0)
[2017-10-10] MEDS: METOPROLOL TARTRATE 50 MG TAB PO SCH ×2 (07:51→20:11)
[2017-10-10] MEDS: amLODIPine BESYLATE 5 MG TAB PO SCH (07:51)
[2017-10-10] MEDS: LIPASE/PROTEASE/AMYLASE (6,000/19,000/30,000) CAP PO SCH ×3 (07:51→17:43)
[2017-10-10] MEDS: THIAMINE HCL 100 MG TAB PO SCH (07:51)
[2017-10-10] MEDS: MULTIVITAMIN TAB PO SCH (07:52)
[2017-10-10] MEDS: LOSARTAN 50 MG TAB PO SCH (07:52)
[2017-10-10] MEDS: DOCUSATE SODIUM 50 MG/SENNA 8.6 MG TAB PO SCH ×2 (07:52→20:11)
[2017-10-10] MEDS: SODIUM CHLORIDE 0.9% FLUSH 10 ML FLUSH IV FLUSH SCH ×4 (07:52→20:11)
[2017-10-10] MEDS: LEVOTHYROXINE SODIUM 150 MCG TAB PO SCH (07:52)
[2017-10-10] MEDS ORDERED: HYDR-3516 PO (09:47)
[2017-10-10] MEDS ORDERED: XARE10TA PO (09:47)
--- NOTE | 2017-10-10 10:27 | PD.ORT.PN ---
Subjective Subjective Remarks Patient resting comfortable this morning. States her right hip pain is improved. Objective Vitals Vital Signs Date Time Temp Pulse Resp B/P (MAP) Pulse Ox O2 Delivery O2 Flow Rate FiO2 10/10/17 10:00 75 10/10/17 08:00 98.5 96 19 145/79 (101) 98 10/10/17 08:00 90 10/10/17 06:00 75 10/10/17 04:00 78 10/10/17 04:00 98.7 74 20 152/71 (98) 98 10/10/17 02:00 76 10/10/17 00:00 98.6 73 15 123/67 (85) 95 10/10/17 00:00 73 10/09/17 22:27 16 10/09/17 22:00 98 10/09/17 21:38 15 10/09/17 20:00 98.7 96 20 132/64 (86) 97 10/09/17 20:00 96 10/09/17 18:00 93 10/09/17 16:00 98.2 76 15 143/67 (92) 98 10/09/17 16:00 86 10/09/17 14:00 75 10/09/17 12:00 72 10/09/17 12:00 98.4 72 19 134/65 (88) 98 I/O 10/09/17 10/09/17 10/09/17 10/10/17 10/10/17 10/10/17 07:00 15:00 23:00 07:00 15:00 23:00 Intake Total 1200 ml 110 ml 1480 ml 1200 ml Output Total 1000 ml 1350 ml 1200 ml Balance 200 ml 110 ml 130 ml 0 ml Intake Oral 480 ml 200 ml IV Total 1200 ml 110 ml 1000 ml 1000 ml Output Urine Total 1000 ml 1350 ml 1200 ml # Bowel Movements 0 0 0 Result Diagram: 10/10/1718 10/10/17 0439 Objective Remarks Awake, alert, distress Right lower extremity: dressings in place without any significant drainage. Neurovascularly intact distally. Brisk cap refill. Negative Homans. Assessment & Plan Assessment and Plan 72yo F with R intertrochanteric femur fracture, POD#2 s/p IMN R femur 1. Partial weightbearing 50% right lower extremity 2 Physical therapy for mobilization 3. Lovenox for DVT prophylaxis while in house. Plan to switch to xarelto upon discharge 4. Dressing changes to start on postop day 2 5. F/u in clinic 2 weeks after discharge. Ivette Shea MD Oct 10, 2017 10:27
[2017-10-10] MEDS: ONDANSETRON HCL 4 MG/2 ML VIAL IVP PRN (11:27)
--- NOTE | 2017-10-10 16:48 | HHI.PR ---
Subjective Remarks Pain controlled. Denies cp/sob. Vital signs stable. Objective Vitals Vital Signs Date Time Temp Pulse Resp B/P (MAP) Pulse Ox O2 Delivery O2 Flow Rate FiO2 10/10/17 16:00 98.7 89 20 145/70 (95) 98 10/10/17 12:00 98.3 78 21 152/73 (99) 98 10/10/17 10:00 75 10/10/17 08:00 98.5 96 19 145/79 (101) 98 10/10/17 08:00 90 10/10/17 06:00 75 10/10/17 04:00 78 10/10/17 04:00 98.7 74 20 152/71 (98) 98 10/10/17 02:00 76 10/10/17 00:00 98.6 73 15 123/67 (85) 95 10/10/17 00:00 73 10/09/17 22:27 16 10/09/17 22:00 98 10/09/17 21:38 15 10/09/17 20:00 98.7 96 20 132/64 (86) 97 10/09/17 20:00 96 10/09/17 18:00 93 I/O 10/09/17 10/09/17 10/09/17 10/10/17 10/10/17 10/10/17 07:00 15:00 23:00 07:00 15:00 23:00 Intake Total 1200 ml 110 ml 1480 ml 1200 ml Output Total 1000 ml 1350 ml 1200 ml 1750 ml Balance 200 ml 110 ml 130 ml 0 ml -1750 ml Intake Oral 480 ml 200 ml IV Total 1200 ml 110 ml 1000 ml 1000 ml Output Urine Total 1000 ml 1350 ml 1200 ml 1750 ml # Bowel Movements 0 0 0 Result Diagram: 10/10/17 0618 10/10/17 0439 Imaging Last Impressions Liver Ultrasound 10/08/17 0000 Signed Impressions: Service Date/Time: Sunday, October 08, 2017 16:23 - CONCLUSION: Gallstones. Common bile duct is dilated at 9 mm without etiology but no stone is seen within this. Pancreas appears normal but on prior CT scan demonstrates calcifications and chronic pancreatitis. Multiple stable liver cysts and right renal cysts Aneudy Self MD Hip X-Ray 10/08/17 0000 Signed Impressions: Service Date/Time: Sunday, October 08, 2017 14:35 - CONCLUSION: Surgical fixation intertrochanteric fracture with excellent alignment and approximation of fragments Aneudy Self MD Hip and Pelvis X-Ray 10/06/171051 Signed Impressions: Service Date/Time: Friday, October 06, 2017 11:26 - CONCLUSION: Mildly displaced intertrochanteric fracture. Mohinder Apodaca MD Head CT 10/06/17 105 Signed Impressions: Service Date/Time: Friday, October 06, 2017 12:18 - CONCLUSION: 1. No hemorrhage. 2. Nonspecific white matter changes. 3. Facial soft tissue swelling. Mohinder Apodaca MD Chest X-Ray 10/06/171051 Signed Impressions: Service Date/Time: Friday, October 06, 2017 11:26 - CONCLUSION: Mild cardiomegaly. No acute focal pulmonary infiltrate or pulmonary vascular congestion. Trey Quiroga MD Cervical Spine CT 10/06/171051 Signed Impressions: Service Date/Time: Friday, October 06, 2017 12:21 - CONCLUSION: Degenerative changes without fracture. Mohinder Apodaca MD Objective Remarks GENERAL: This is a well-nourished, well-developed patient, nad. SKIN: No rashes, ecchymoses or lesions. Cool and dry. HEAD: Atraumatic. Normocephalic. No temporal or scalp tenderness. EYES: Pupils equal round and reactive. Extraocular motions intact. No scleral icterus. No injection or drainage. ENT: Nose without bleeding, purulent drainage or septal hematoma. Throat without erythema, tonsillar hypertrophy or exudate. Uvula midline. Airway patent. NECK: Trachea midline. No JVD or lymphadenopathy. Supple, nontender, no meningeal signs. CARDIOVASCULAR: Regular rate and rhythm without murmurs, gallops, or rubs. RESPIRATORY: Clear to auscultation. Breath sounds equal bilaterally. No wheezes , rales, or rhonchi. GASTROINTESTINAL: Abdomen soft, non-tender, nondistended. No hepato-splenomegaly , or palpable masses. No guarding. MUSCULOSKELETAL: Extremities without clubbing, cyanosis, or edema. There is severe tenderness to palpation of the right hip. No effusion, or edema noted. No calf tenderness. Negative Homans sign bilaterally. There are good pedal pulses in bilateral extremities. NEUROLOGICAL: Awake and alert. Cranial nerves II through XII intact. Motor and sensory grossly within normal limits. Five out of 5 muscle strength in all muscle groups. Normal speech. No tremors observed. Medications and IVs Current Medications Medications (Trade) Dose Ordered Sig/Veronica Route Start Time Stop Time Status Last Admin (NS Flush) 2 ml UNSCH PRN IV FLUSH 10/06/17 15:15 (NS Flush) 2 ml BID IV FLUSH 10/06/17 21:00 10/10/17 07:52 (Tylenol) 650 mg Q4H PRN PO 10/06/17 15:15 10/08/17 20:33 (Zofran Inj) 4 mg Q6H PRN IVP 10/06/17 15:15 10/10/17 11:27 (Heparin Inj) 5,000 units Q8H SQ 10/06/17 16:00 10/10/17 23:33 (Narcan Inj) 0.4 mg UNSCH PRN IV PUSH 10/06/17 15:15 (Loivia-Colace) 1 tab BID PO 10/06/17 21:00 10/10/17 20:11 (Milk Of Magnesia Liq) 30 ml Q12H PRN PO 10/06/17 15:15 (Senokot) 17.2 mg Q12H PRN PO 10/06/17 15:15 (Dulcolax Supp) 10 mg DAILY PRN RECTAL 10/06/17 15:15 (Lactulose Liq) 30 ml DAILY PRN PO 10/06/17 15:15 (Morphine Inj) 2 mg Q3H PRN IV 10/06/17 17:30 10/07/17 10:57 ([place] 5-325 Mg) 1 tab Q4H PRN PO 10/06/17 17:30 10/10/17 23:33 (Romazicon Inj) 0.2 mg Q1M PRN IV PUSH 10/06/17 18:15 (Ativan) 1 mg Q4H PRN PO 10/06/17 18:15 10/09/17 03:09 (Ativan Inj) 1 mg Q4H PRN IV PUSH 10/06/17 18:15 10/08/17 18:00 (Ativan) 2 mg Q2H PRN PO 10/06/17 18:15 10/09/17 22:36 (Ativan Inj) 2 mg Q2H PRN IV PUSH 10/06/17 18:15 10/09/17 15:08 (Ativan Inj) 2 mg Q1H PRN IV PUSH 10/06/17 18:15 10/08/17 04:26 (Ativan Inj) 2 mg Q15M PRN IV PUSH 10/06/17 18:15 10/06/17 19:22 (Morphine Inj) 2 mg Q3H PRN IV PUSH 10/06/17 18:30 10/08/17 10:47 (Morphine Inj) 4 mg Q3H PRN IV PUSH 10/06/17 18:30 10/10/17 10:28 (Xanax) 1 mg HS PRN PO 10/06/17 18:45 10/10/17 20:11 (Norvasc) 5 mg DAILY PO 10/06/17 20:00 10/10/17 07:51 (Cozaar) 100 mg DAILY PO 10/07/17 09:00 10/10/17 07:52 (Vitamin B1) 100 mg DAILY PO 10/07/17 09:00 10/10/17 07:51 Patient Own Medication PT OWN MED: (Desvenlafaxine ER 24... DAILY PO 10/07/17 09:00 Future Hold (Protonix) 40 mg DAILY@0600 PO 10/07/17 06:00 10/10/17 05:07 (Synthroid) 150 mcg DAILY PO 10/07/17 09:00 10/10/17 07:52 (Theragran) 1 tab DAILY PO 10/07/17 09:00 10/10/17 07:52 (Creon 6-19-30) 1 cap TIDPC PO 10/07/17 09:30 10/10/17 17:43 (Synthroid) 25 mcg DAILY@0600 PO 10/07/17 06:00 10/10/17 05:07 (Trandate Inj) 10 mg Q6H PRN IV PUSH 10/06/17 20:30 10/06/17 22:28 (Apresoline Inj) 10 mg Q6H PRN IV PUSH 10/07/17 00:00 10/07/17 18:51 (Lopressor) 50 mg Q12HR PO 10/07/17 10:30 10/10/17 20:11 Potassium Chloride/Sodium Chloride 1,000 ml @ 84 mls/hr [id number] IV 10/08/17 11:45 10/10/17 18:17 (NS Flush) 2 ml UNSCH PRN IV FLUSH 10/08/17 15:00 (NS Flush) 2 ml BID IV FLUSH 10/08/17 21:00 A/P Problem List: (1) Fall ICD Code: W19.XXXA - Unspecified fall, initial encounter Status: Acute Plan: Patient states she slipped and fell, denies loss of consciousness. Workup reveals negative head CT. Chest x-ray with mild cardiomegaly. No acute focal pulmonary infiltrate or pulmonary vascular congestion. Cervical spine CT shows degenerative changes without fracture. Hip and pelvis x-ray shows mildly displaced intertrochanteric fracture. (2) Alcohol intoxication ICD Code: F10.929 - Alcohol use, unspecified with intoxication, unspecified Plan: Alcohol level on admission is 228 likely contributing to increased risk of falls. (3) Alcohol withdrawal delirium, acute, hyperactive ICD Code: F10.231 - Alcohol dependence with withdrawal delirium Plan: Continue CIWA. NO signs of withdrawal. (4) Metabolic acidosis ICD Code: E87.2 - Acidosis Plan: Non-anion gap metabolic acidosis. Likely secondary to alcohol intoxication. Continue to monitor BMP. Will place on IV fluids. Resolved after IVF. (5) Hyperglycemia ICD Code: R73.9 - Hyperglycemia, unspecified Plan: Secondary to stress hyperglycemia. Upon review of records the patient has had a recent hemoglobin A1c on October 17, 2016 which was 4.6. Hemoglobin A1c - 4.7. (6) Transaminitis ICD Code: R74.0 - Nonspecific elevation of levels of transaminase and lactic acid dehydrogenase [LDH] Plan: The patient has had elevated AST since September 26, 2017. Suspect related to alcohol ingestion. However since patient has been a long-standing drinker I will order liver ultrasound, hepatitis profile and continue to monitor liver function tests. (7) Intertrochanteric fracture of right hip ICD Code: S72.141A - Displaced intertrochanteric fracture of right femur, initial encounter for closed fracture Status: Acute Plan: Management as per orthopedic surgery. Pain controlled. Patient cleared for DC by orthopedic surgery. (8) Uncontrolled hypertension ICD Code: I10 - Essential (primary) hypertension Plan: Blood pressure control likely worst with alcohol withdrawal. I will continue home antihypertensive medications, the patient has been placed on CIWA protocol. We will place on Vasotec as needed for systolic blood pressure more than 160. 10/11 BP more stable, Continue antihypertensive medications. (9) Hypothyroid ICD Code: E03.9 - Hypothyroidism Status: Chronic (10) Depression ICD Code: F32.9 - Depression Status: Chronic Plan: Continue desvenlafaxine and alprazolam as needed for anxiety. Assessment and Plan (1) Fall Plan: Patient states she slipped and fell, denies loss of consciousness. Workup reveals negative head CT. Chest x-ray with mild cardiomegaly. No acute focal pulmonary infiltrate or pulmonary vascular congestion. Cervical spine CT shows degenerative changes without fracture. Hip and pelvis x-ray shows mildly displaced intertrochanteric fracture. (2) Alcohol intoxication Plan: Alcohol level on admission is 228 likely contributing to increased risk of falls. (3) Alcohol withdrawal delirium, acute, hyperactive Plan: Patient currently with tremors, slight tachycardia with heart rate of 96 and hypertensive with a systolic blood pressure in the 180s. 10/08 Tremors much improved. Continue CIWA protocol with benzodiazepines. (4) Metabolic acidosis ICD Code: E87.2 - Acidosis Plan: Non-anion gap metabolic acidosis. Likely secondary to alcohol intoxication. Continue to monitor BMP. Will place on IV fluids. 10/07 Resolved after IV fluids. Continue while npo and awaiting surgery. (5) Hyperglycemia Plan: Secondary to stress hyperglycemia. Upon review of records the patient has had a recent hemoglobin A1c on October 17, 2016 which was 4.6. 10/08 HbA1C 4.7 - diabetes ruled out. (6) Transaminitis ICD Code: R74.0 - Nonspecific elevation of levels of transaminase and lactic acid dehydrogenase [LDH] Plan: The patient has had elevated AST since September 26, 2017. Suspect related to alcohol ingestion. However since patient has been a long-standing drinker I will order liver ultrasound, hepatitis profile and continue to monitor liver function tests. 10/08 Transaminitis resolved - likely related to etoh ingestion. (7) Intertrochanteric fracture of right hip Status: Acute Plan: The patient is status post right intramedullary fixation by orthopedic surgery. Pain control as per orthopedic surgery. (8) Uncontrolled hypertension Plan: Blood pressure control likely worst with alcohol withdrawal. I will continue home antihypertensive medications, the patient has been placed on CIWA protocol. We will place on Vasotec as needed for systolic blood pressure more than 160. 10/07 BP still severely elevated. Started Metoprolol 50 mg po Q 12 hrs. Continue to monitor vital signs. 10/09 BP improving, Continue Metoprolol 50 mg po Q 12 hrs. (9) Hypothyroid Plan: Continue levothyroxine. 10/08 TSH and free t4 normal. (10) Depression Plan: Continue desvenlafaxine and alprazolam as needed for anxiety. Seems stable. GI prophylaxis: Place of PPI. DVT prophylaxis: SCDs, heparin SQ. Discharge Planning Dc in am. Problem Qualifiers (1) Fall: Qualified Codes: W19.XXXA - Unspecified fall, initial encounter (2) Alcohol intoxication: Qualified Codes: F10.921 - Alcohol use, unspecified with intoxication delirium (3) Intertrochanteric fracture of right hip: Qualified Codes: S72.141A - Displaced intertrochanteric fracture of right femur , initial encounter for closed fracture (4) Hypothyroid: Qualified Codes: E03.9 - Hypothyroidism, unspecified (5) Depression: Qualified Codes: F32.9 - Major depressive disorder, single episode, unspecified Yuri Wesley MD Oct 10, 2017 16:48
[2017-10-10] MEDS: ACETAMINOPHEN/HYDROcodone 325 MG/5 MG TAB PO PRN ×2 (17:51→23:33)
[2017-10-10] MEDS: ALPRAZolam 1 MG TAB PO PRN (20:11)
[2017-10-11] VITALS: BP 164/88; PULSE 71; RESP 15; TEMP 97.4; O2SAT 97
[2017-10-11] MEDS: LEVOTHYROXINE SODIUM 25 MCG TAB PO SCH (06:35)
[2017-10-11] MEDS: PANTOPRAZOLE SOD 40 MG DELAYED RELEASE TAB PO SCH (06:35)
[2017-10-11] MEDS: ACETAMINOPHEN/HYDROcodone 325 MG/5 MG TAB PO PRN ×3 (06:35→20:56)
[2017-10-11] MEDS: NS + KCL 40 MEQ INJ 1,000 ML IV SCH ×2 (06:37→21:00)
[2017-10-11 08:00] VITALS: BP 138/77; PULSE 76; RESP 18; TEMP 98.8; O2SAT 97
--- NOTE | 2017-10-11 08:26 | PD.OP ---
cc: Ivette Shea MD Operative Report Date of Surgery: Oct 08, 2017 Preoperative Diagnosis: closed right intertrochanteric femur fracture Postoperative Diagnosis: same Procedure: Intramedullary nail right intertrochanteric femur fracture Anesthesia: General Surgeon: Ivette Shea Toe Sewer(s): none Operation and Findings: EBL: 100 cc Complications: None Specimens: None Indications for procedure: Patient is a 72-year-old female with history of alcoholism and his poor historian but complains of right hip pain. Patient was found to have a right intertrochanteric femur fracture. Options of management were discussed. Risks of surgery including but not limited to: Infection, nonunion or malunion, hardware malposition or failure, possible need for further surgery, neurovascular injury, and other unforeseen complications were all discussed. At this time the patient has consented to the procedure. Description of procedure: Patient was brought back to the operating room where general anesthesia then ensued. Patient was then positioned on the operating room fracture table with all bony prominences well padded. Patient was prepped and draped in standard sterile fashion. Preoperative antibiotics were given within 1 hour of incision. A timeout was performed to identify correct patient , side, site and procedure to be performed. At this time the fracture was reduced on the table with the use of traction and rotation. A small approximate 2 inch incision was made just proximal and posterior to the greater trochanter. A guidewire was then placed in the tip of the greater trochanter on the AP and lateral radiographs. This was advanced to the lesser trochanteric region. An opening reamer was then used to allow access to the femoral canal and advanced to the lesser trochanteric region. At this time an 11 mm diameter Synthes TFN nail was then placed and advanced into appropriate position on both AP and lateral radiographs. A small lateral based incision was made to allow the drill guides for the proximal screw to be placed through the subcutaneous tissue and fascia down to the lateral cortex. A guidewire was then placed in the femoral neck and into the femoral head in a center center position on AP and lateral radiographs. This was subsequently measured and drilled and then placed. This was verified to be in acceptable position on AP and lateral radiographs. The proximal locking screw was then tightened and backed off a half turn. The guides for the distal locking screw was then placed through a small lateral based incision. This was then drilled, measured and subsequently placed. Final x-rays were obtained which limited the fracture was in acceptable alignment and the hardware was in good position. The insertion handle was then removed. All wounds were thoroughly irrigated with normal saline laden with gentamicin. The subcutaneous tissue and fascia was closed with interrupted Vicryl sutures and the skin subsequently closed with tierra. Sterile dressings were then applied. Patient was transferred off the operating room table and awoken from general anesthesia without complication. Disposition: Patient be partial weightbearing 50% of the right lower extremity. Ivette Shea MD Oct 11, 2017 08:26
[2017-10-11] MEDS: SODIUM CHLORIDE 0.9% FLUSH 10 ML FLUSH IV FLUSH SCH ×2 (09:00→21:00)
[2017-10-11] MEDS: THIAMINE HCL 100 MG TAB PO SCH (09:00)
[2017-10-11] MEDS: METOPROLOL TARTRATE 50 MG TAB PO SCH ×2 (09:11→21:01)
[2017-10-11] MEDS: MULTIVITAMIN TAB PO SCH (09:11)
[2017-10-11] MEDS: LORazepam 1 MG TAB PO PRN (09:11)
[2017-10-11] MEDS: LOSARTAN 50 MG TAB PO SCH (09:12)
[2017-10-11] MEDS: amLODIPine BESYLATE 5 MG TAB PO SCH (09:12)
[2017-10-11] MEDS: DOCUSATE SODIUM 50 MG/SENNA 8.6 MG TAB PO SCH ×2 (09:12→20:56)
[2017-10-11] MEDS: HEPARIN SODIUM - SQ 10,000 UNITS/ML VIAL SQ SCH ×3 (09:12→23:49)
[2017-10-11] MEDS: LIPASE/PROTEASE/AMYLASE (6,000/19,000/30,000) CAP PO SCH ×3 (09:30→18:30)
[2017-10-11 10:19] LABS: HEMOGLOBIN 9.2 GM/DL (11.6-15.3); MEAN CELL VOLUME 98.5 FL (80.0-100.0); MEAN CORPUSCULAR HEMOGLOBIN 34.7 PG (27.0-34.0); MEAN CORPUSCULAR HGB CONC 35.2 % (32.0-36.0); MEAN PLATELET VOLUME 7.6 FL (7.0-11.0); PLATELET COUNT 231 TH/MM3 (150-450); RED BLOOD COUNT 2.64 MIL/MM3 (4.00-5.30); RED CELL DISTRIBUTION WIDTH 16.1 % (11.6-17.2); WHITE BLOOD COUNT 6.4 TH/MM3 (4.0-11.0)
[2017-10-11 10:50] LABS: BICARBONATE 23.8 MEQ/L (21.0-32.0); CALCIUM 8.5 MG/DL (8.5-10.1); CREATININE 0.74 MG/DL (0.50-1.00); MAGNESIUM 1.5 MG/DL (1.5-2.5); PHOSPHORUS 3.1 MG/DL (2.5-4.9)
[2017-10-11 12:00] VITALS: BP 137/75; PULSE 72; RESP 17; TEMP 98.6; O2SAT 99
--- NOTE | 2017-10-11 15:53 | HHI.PR ---
Subjective Remarks Follow-up mechanical fall/alcohol intoxication 10/11/17-patient seen and examined, denies any significant pain to right lower extremity. No chest pain or shortness of breath. Alert and oriented 3 Objective Vitals Vital Signs Date Time Temp Pulse Resp B/P (MAP) Pulse Ox O2 Delivery O2 Flow Rate FiO2 10/11/17 12:00 98.6 72 17 137/75 (95) 99 10/11/17 08:00 98.8 76 18 138/77 (97) 97 10/11/17 00:00 97.4 71 15 164/88 (113) 97 10/10/17 20:15 97.3 96 16 158/78 (104) 96 10/10/17 17:00 100.5 86 18 147/76 (99) 96 10/10/17 16:00 98.7 89 20 145/70 (95) 98 I/O 10/10/17 10/10/17 10/10/17 10/11/17 10/11/17 10/11/17 07:00 15:00 23:00 07:00 15:00 23:00 Intake Total 1200 ml 1500 ml 720 ml Output Total 1200 ml 1750 ml 2600 ml 1800 ml Balance 0 ml -1750 ml -1100 ml -1080 ml Intake Oral 200 ml 500 ml 720 ml IV Total 1000 ml 1000 ml Output Urine Total 1200 ml 1750 ml 2600 ml 1800 ml # Bowel Movements 0 0 Result Diagram: 10/11/17 0840 10/11/17 0840 Imaging Last Impressions Liver Ultrasound 10/08/17 0000 Signed Impressions: Service Date/Time: Sunday, October 08, 2017 16:23 - CONCLUSION: Gallstones. Common bile duct is dilated at 9 mm without etiology but no stone is seen within this. Pancreas appears normal but on prior CT scan demonstrates calcifications and chronic pancreatitis. Multiple stable liver cysts and right renal cysts Aneudy Self MD Hip X-Ray 10/08/17 0000 Signed Impressions: Service Date/Time: Sunday, October 08, 2017 14:35 - CONCLUSION: Surgical fixation intertrochanteric fracture with excellent alignment and approximation of fragments Aneudy Self MD Hip and Pelvis X-Ray 10/06/17 1052 Signed Impressions: Service Date/Time: Friday, October 06, 2017 11:26 - CONCLUSION: Mildly displaced intertrochanteric fracture. Mohinder Apodaca MD Head CT 10/06/17 105 Signed Impressions: Service Date/Time: Friday, October 06, 2017 12:18 - CONCLUSION: 1. No hemorrhage. 2. Nonspecific white matter changes. 3. Facial soft tissue swelling. Mohinder Apodaca MD Chest X-Ray 10/06/171051 Signed Impressions: Service Date/Time: Friday, October 06, 2017 11:26 - CONCLUSION: Mild cardiomegaly. No acute focal pulmonary infiltrate or pulmonary vascular congestion. Trey Quiroga MD Cervical Spine CT 10/06/171051 Signed Impressions: Service Date/Time: Friday, October 06, 2017 12:21 - CONCLUSION: Degenerative changes without fracture. Mohinder Apodaca MD Objective Remarks GENERAL: NAD SKIN: Warm and dry. HEAD: Normocephalic. EYES: No scleral icterus. No injection or drainage. NECK: Supple, trachea midline. No JVD or lymphadenopathy. CARDIOVASCULAR: Regular rate and rhythm without murmurs, gallops, or rubs. RESPIRATORY: Breath sounds equal bilaterally. No accessory muscle use. GASTROINTESTINAL: Abdomen soft, non-tender, nondistended. MUSCULOSKELETAL: No cyanosis, or edema. BACK: Nontender without obvious deformity. No CVA tenderness. A/P Problem List: (1) Fall ICD Code: W19.XXXA - Unspecified fall, initial encounter Status: Acute (2) Alcohol intoxication ICD Code: F10.929 - Alcohol use, unspecified with intoxication, unspecified (3) Alcohol withdrawal delirium, acute, hyperactive ICD Code: F10.231 - Alcohol dependence with withdrawal delirium (4) Metabolic acidosis ICD Code: E87.2 - Acidosis (5) Hyperglycemia ICD Code: R73.9 - Hyperglycemia, unspecified (6) Transaminitis ICD Code: R74.0 - Nonspecific elevation of levels of transaminase and lactic acid dehydrogenase [LDH] (7) Intertrochanteric fracture of right hip ICD Code: S72.141A - Displaced intertrochanteric fracture of right femur, initial encounter for closed fracture Status: Acute (8) Uncontrolled hypertension ICD Code: I10 - Essential (primary) hypertension (9) Hypothyroid ICD Code: E03.9 - Hypothyroidism Status: Chronic (10) Depression ICD Code: F32.9 - Depression Status: Chronic Assessment and Plan 72 Year-old female with Fall Cervical spine CT shows degenerative changes without fracture. Hip and pelvis x-ray shows mildly displaced intertrochanteric fracture. Alcohol intoxication Alcohol level on admission is 228 likely contributing to increased risk of falls. Alcohol withdrawal delirium, acute, hyperactive Continue CIWA protocol with benzodiazepines. Metabolic acidosis Resolved after IV fluids. Hyperglycemia-resolved HbA1C 4.7 - diabetes ruled out. Transaminitis-resolved Intertrochanteric fracture of right hip The patient is status post right intramedullary fixation by orthopedic surgery. Pain control as per orthopedic surgery. Uncontrolled hypertension Control, Continue Metoprolol 50 mg po Q 12 hrs. Hypothyroid Continue levothyroxine. TSH and free t4 normal. Depression Continue desvenlafaxine and alprazolam as needed for anxiety. GI prophylaxis: Place of PPI. DVT prophylaxis: SCDs, heparin SQ. Problem Qualifiers (1) Fall: Qualified Codes: W19.XXXA - Unspecified fall, initial encounter (2) Alcohol intoxication: Qualified Codes: F10.921 - Alcohol use, unspecified with intoxication delirium (3) Intertrochanteric fracture of right hip: Qualified Codes: S72.141A - Displaced intertrochanteric fracture of right femur , initial encounter for closed fracture (4) Hypothyroid: Qualified Codes: E03.9 - Hypothyroidism, unspecified (5) Depression: Qualified Codes: F32.9 - Major depressive disorder, single episode, unspecified Mohinder Park MD Oct 11, 2017 15:53
[2017-10-11 16:00] VITALS: BP 138/72; PULSE 69; RESP 18; TEMP 97.9; O2SAT 100
[2017-10-11 20:00] VITALS: BP 120/63; PULSE 75; RESP 14; TEMP 97.8; O2SAT 98
[2017-10-12] VITALS: BP 126/63; PULSE 70; RESP 15; TEMP 98; O2SAT 98
[2017-10-12] MEDS: ACETAMINOPHEN/HYDROcodone 325 MG/5 MG TAB PO PRN ×6 (01:44→22:59)
[2017-10-12] MEDS: PANTOPRAZOLE SOD 40 MG DELAYED RELEASE TAB PO SCH (06:17)
[2017-10-12] MEDS: LEVOTHYROXINE SODIUM 150 MCG TAB PO SCH (06:18)
[2017-10-12] MEDS: LEVOTHYROXINE SODIUM 25 MCG TAB PO SCH (06:18)
[2017-10-12 07:46] VITALS: BP 163/80; PULSE 73; RESP 19; TEMP 98; O2SAT 98
[2017-10-12] MEDS: SODIUM CHLORIDE 0.9% FLUSH 10 ML FLUSH IV FLUSH SCH ×2 (08:27→20:52)
[2017-10-12] MEDS: LOSARTAN 50 MG TAB PO SCH (08:27)
[2017-10-12] MEDS: LIPASE/PROTEASE/AMYLASE (6,000/19,000/30,000) CAP PO SCH ×3 (08:28→17:31)
[2017-10-12] MEDS: MULTIVITAMIN TAB PO SCH (08:28)
[2017-10-12] MEDS: METOPROLOL TARTRATE 50 MG TAB PO SCH ×2 (08:28→20:49)
[2017-10-12] MEDS: amLODIPine BESYLATE 5 MG TAB PO SCH (08:28)
[2017-10-12] MEDS: THIAMINE HCL 100 MG TAB PO SCH (08:28)
[2017-10-12] MEDS: DOCUSATE SODIUM 50 MG/SENNA 8.6 MG TAB PO SCH ×2 (08:28→20:54)
[2017-10-12] MEDS: HEPARIN SODIUM - SQ 10,000 UNITS/ML VIAL SQ SCH ×2 (08:29→15:48)
[2017-10-12] MEDS: ONDANSETRON HCL 4 MG/2 ML VIAL IVP PRN (09:24)
[2017-10-12] MEDS: NS + KCL 40 MEQ INJ 1,000 ML IV SCH ×2 (11:05→20:54)
[2017-10-12 11:13] VITALS: BP 140/71; PULSE 66; RESP 18; TEMP 97.2; O2SAT 100
[2017-10-12] MEDS ORDERED: METO-309 PO (12:30)
--- NOTE | 2017-10-12 12:33 | HHI.PR ---
Subjective Remarks Follow-up mechanical fall/alcohol intoxication 10/11/17-patient seen and examined, denies any significant pain to right lower extremity. No chest pain or shortness of breath. Alert and oriented 3 10/12/17-patient seen and examined, states she feels depressed however denies any pain. Objective Vitals Vital Signs Date Time Temp Pulse Resp B/P (MAP) Pulse Ox O2 Delivery O2 Flow Rate FiO2 10/12/17 11:13 97.2 66 18 140/71 (94) 100 10/12/17 07:46 98.0 73 19 163/80 (107) 98 10/12/17 00:00 98.0 70 15 126/63 (84) 98 10/11/17 20:00 97.8 75 14 120/63 (82) 98 10/11/17 16:00 97.9 69 18 138/72 (94) 100 I/O 10/11/17 10/11/17 10/11/17 10/12/17 10/12/17 10/12/17 07:00 15:00 23:00 07:00 15:00 23:00 Intake Total 1500 ml 720 ml Output Total 2600 ml 1800 ml 400 ml Balance -1100 ml -1080 ml -400 ml Intake Oral 500 ml 720 ml IV Total 1000 ml Output Urine Total 2600 ml 1800 ml 400 ml # Bowel Movements 0 Result Diagram: 10/11/17 0840 10/11/17 0840 Imaging Last Impressions Liver Ultrasound 10/08/17 0000 Signed Impressions: Service Date/Time: Sunday, October 08, 2017 16:23 - CONCLUSION: Gallstones. Common bile duct is dilated at 9 mm without etiology but no stone is seen within this. Pancreas appears normal but on prior CT scan demonstrates calcifications and chronic pancreatitis. Multiple stable liver cysts and right renal cysts Aneudy Self MD Hip X-Ray 10/08/17 0000 Signed Impressions: Service Date/Time: Sunday, October 08, 2017 14:35 - CONCLUSION: Surgical fixation intertrochanteric fracture with excellent alignment and approximation of fragments Aneudy Self MD Hip and Pelvis X-Ray 10/06/17 1052 Signed Impressions: Service Date/Time: Friday, October 06, 2017 11:26 - CONCLUSION: Mildly displaced intertrochanteric fracture. Mohinder Apodaca MD Head CT 10/06/17 1052 Signed Impressions: Service Date/Time: Friday, October 06, 2017 12:18 - CONCLUSION: 1. No hemorrhage. 2. Nonspecific white matter changes. 3. Facial soft tissue swelling. Mohinder Apodaca MD Chest X-Ray 10/06/17 105 Signed Impressions: Service Date/Time: Friday, October 06, 2017 11:26 - CONCLUSION: Mild cardiomegaly. No acute focal pulmonary infiltrate or pulmonary vascular congestion. Trey Quiroga MD Cervical Spine CT 10/06/171051 Signed Impressions: Service Date/Time: Friday, October 06, 2017 12:21 - CONCLUSION: Degenerative changes without fracture. Mohinder Apodaca MD Objective Remarks GENERAL: NAD SKIN: Warm and dry. HEAD: Normocephalic. EYES: No scleral icterus. No injection or drainage. NECK: Supple, trachea midline. No JVD or lymphadenopathy. CARDIOVASCULAR: Regular rate and rhythm without murmurs, gallops, or rubs. RESPIRATORY: Breath sounds equal bilaterally. No accessory muscle use. GASTROINTESTINAL: Abdomen soft, non-tender, nondistended. MUSCULOSKELETAL: No cyanosis, or edema. BACK: Nontender without obvious deformity. No CVA tenderness. Procedures s/p Intramedullary nail right intertrochanteric femur fracture 10/08/17 A/P Problem List: (1) Fall ICD Code: W19.XXXA - Unspecified fall, initial encounter Status: Acute (2) Alcohol intoxication ICD Code: F10.929 - Alcohol use, unspecified with intoxication, unspecified (3) Alcohol withdrawal delirium, acute, hyperactive ICD Code: F10.231 - Alcohol dependence with withdrawal delirium (4) Metabolic acidosis ICD Code: E87.2 - Acidosis (5) Hyperglycemia ICD Code: R73.9 - Hyperglycemia, unspecified (6) Transaminitis ICD Code: R74.0 - Nonspecific elevation of levels of transaminase and lactic acid dehydrogenase [LDH] (7) Intertrochanteric fracture of right hip ICD Code: S72.141A - Displaced intertrochanteric fracture of right femur, initial encounter for closed fracture Status: Acute (8) Uncontrolled hypertension ICD Code: I10 - Essential (primary) hypertension (9) Hypothyroid ICD Code: E03.9 - Hypothyroidism Status: Chronic (10) Depression ICD Code: F32.9 - Depression Status: Chronic Assessment and Plan 72 Year-old female with Fall Cervical spine CT shows degenerative changes without fracture. Hip and pelvis x-ray shows mildly displaced intertrochanteric fracture. Alcohol intoxication Continue with CIWA protocol, Rally pack Alcohol withdrawal delirium, acute, hyperactive Continue CIWA protocol with benzodiazepines. Metabolic acidosis Resolved after IV fluids. Hyperglycemia-resolved HbA1C 4.7 - diabetes ruled out. Transaminitis-resolved Intertrochanteric fracture of right hip status post right intramedullary fixation by orthopedic surgery. Pain control as per orthopedic surgery. Uncontrolled hypertension Control, Continue Metoprolol 50 mg po Q 12 hrs. Hypothyroid Continue levothyroxine. TSH and free t4 normal. Depression Continue desvenlafaxine and alprazolam as needed for anxiety. GI prophylaxis: Place of PPI. DVT prophylaxis: SCDs, heparin SQ. Problem Qualifiers (1) Fall: Qualified Codes: W19.XXXA - Unspecified fall, initial encounter (2) Alcohol intoxication: Qualified Codes: F10.921 - Alcohol use, unspecified with intoxication delirium (3) Intertrochanteric fracture of right hip: Qualified Codes: S72.141A - Displaced intertrochanteric fracture of right femur , initial encounter for closed fracture (4) Hypothyroid: Qualified Codes: E03.9 - Hypothyroidism, unspecified (5) Depression: Qualified Codes: F32.9 - Major depressive disorder, single episode, unspecified Mohinder Park MD Oct 12, 2017 12:33
--- NOTE | 2017-10-12 12:37 | HHI.DS ---
Discharge Summary Admission Date Oct 06, 2017 at 13:18 Discharge Date: Oct 12, 2017 Admitting Diagnosis Right hip fracture/fall (1) Fall ICD Code: W19.XXXA - Unspecified fall, initial encounter Status: Acute (2) Alcohol intoxication ICD Code: F10.929 - Alcohol use, unspecified with intoxication, unspecified (3) Alcohol withdrawal delirium, acute, hyperactive ICD Code: F10.231 - Alcohol dependence with withdrawal delirium (4) Metabolic acidosis ICD Code: E87.2 - Acidosis (5) Hyperglycemia ICD Code: R73.9 - Hyperglycemia, unspecified (6) Transaminitis ICD Code: R74.0 - Nonspecific elevation of levels of transaminase and lactic acid dehydrogenase [LDH] (7) Intertrochanteric fracture of right hip ICD Code: S72.141A - Displaced intertrochanteric fracture of right femur, initial encounter for closed fracture Status: Acute (8) Uncontrolled hypertension ICD Code: I10 - Essential (primary) hypertension (9) Hypothyroid ICD Code: E03.9 - Hypothyroidism Status: Chronic (10) Depression ICD Code: F32.9 - Depression Status: Chronic Procedures s/p Intramedullary nail right intertrochanteric femur fracture 10/08/17 Brief History - From Admission This is a 72-year-old female with past medical history of alcohol abuse, hypertension, hypothyroidism, breast cancer who presented to the emergency department at [facility] complaining that she fell this morning in the kitchen. The patient states that she slipped over some spilled water and then fell over her right side having immediate severe 10/10 pain which is nonradiating located in the right hip, greatly intensified worsened by movement. Relieved by laying still and IV pain medication that she was given in the emergency department. The patient complains of tremors, denies hallucinations and feels nauseous, denies abdominal pain, chest pain or shortness of breath. Patient also denies any fevers or chills, cough, dysuria. CBC/BMP: 10/11/17 0840 10/11/17 0840 Significant Findings Laboratory Tests Test 10/10/17 04:39 10/10/17 06:18 10/11/17 08:40 Sodium Level 134 MEQ/L (136-145) 133 MEQ/L (136-145) Estimat Glomerular Filtration Rate 80 ML/MIN (>89) 78 ML/MIN (>89) Red Blood Count 2.59 MIL/MM3 (4.00-5.30) 2.64 MIL/MM3 (4.00-5.30) Hemoglobin 9.1 GM/DL (11.6-15.3) 9.2 GM/DL (11.6-15.3) Hematocrit 25.7 % (35.0-46.0) 26.0 % (35.0-46.0) Mean Corpuscular Hemoglobin 35.0 PG (27.0-34.0) 34.7 PG (27.0-34.0) Random Glucose 144 MG/DL (74-106) Imaging Last Impressions Liver Ultrasound 10/08/17 0000 Signed Impressions: Service Date/Time: Sunday, October 08, 2017 16:23 - CONCLUSION: Gallstones. Common bile duct is dilated at 9 mm without etiology but no stone is seen within this. Pancreas appears normal but on prior CT scan demonstrates calcifications and chronic pancreatitis. Multiple stable liver cysts and right renal cysts Aneudy Self MD Hip X-Ray 10/08/17 0000 Signed Impressions: Service Date/Time: Sunday, October 08, 2017 14:35 - CONCLUSION: Surgical fixation intertrochanteric fracture with excellent alignment and approximation of fragments Aneudy Self MD Hip and Pelvis X-Ray 10/06/17 1052 Signed Impressions: Service Date/Time: Friday, October 06, 2017 11:26 - CONCLUSION: Mildly displaced intertrochanteric fracture. Mohinder Apodaca MD Head CT 10/06/17 1052 Signed Impressions: Service Date/Time: Friday, October 06, 2017 12:18 - CONCLUSION: 1. No hemorrhage. 2. Nonspecific white matter changes. 3. Facial soft tissue swelling. Mohinder Apodaca MD Chest X-Ray 10/06/17 1052 Signed Impressions: Service Date/Time: Friday, October 06, 2017 11:26 - CONCLUSION: Mild cardiomegaly. No acute focal pulmonary infiltrate or pulmonary vascular congestion. Trey Quiroga MD Cervical Spine CT 10/06/17 1052 Signed Impressions: Service Date/Time: Friday, October 06, 2017 12:21 - CONCLUSION: Degenerative changes without fracture. Mohinder Apodaca MD PE at Discharge GENERAL: NAD SKIN: Warm and dry. HEAD: Normocephalic. EYES: No scleral icterus. No injection or drainage. NECK: Supple, trachea midline. No JVD or lymphadenopathy. CARDIOVASCULAR: Regular rate and rhythm without murmurs, gallops, or rubs. RESPIRATORY: Breath sounds equal bilaterally. No accessory muscle use. GASTROINTESTINAL: Abdomen soft, non-tender, nondistended. MUSCULOSKELETAL: No cyanosis, or edema. BACK: Nontender without obvious deformity. No CVA tenderness. Hospital Course While in The hospital, patient was treated for Fall Cervical spine CT shows degenerative changes without fracture. Hip and pelvis x-ray shows mildly displaced intertrochanteric fracture. Alcohol intoxication Alcohol withdrawal delirium, acute, hyperactive Treated with CIWA protocol with benzodiazepines. Metabolic acidosis Resolved after IV fluids hydration. Hyperglycemia-resolved HbA1C 4.7 - diabetes ruled out. Transaminitis-resolved Intertrochanteric fracture of right hip status post right intramedullary fixation by orthopedic surgery. Pain control as per orthopedic surgery. Uncontrolled hypertension Treated with Metoprolol 50 mg po Q 12 hrs along with home medications Hypothyroid Treated with levothyroxine. TSH and free t4 normal. Depression Treated with desvenlafaxine and alprazolam as needed for anxiety. GI prophylaxis: Place of PPI. DVT prophylaxis: SCDs, heparin SQ. Pt Condition on Discharge: Good Discharge Disposition: Rehab Inpatient Discharge Time: > 30 minutes Discharge Instructions DIET: Follow Instructions for: As Tolerated, No Restrictions Activities you can perform: Regular-No Restrictions Follow up Referrals: Orthopedics - 2 Weeks @ [facility] with Ivette Shea MD PCP Follow-up - 2-3 Days New Medications: Rivaroxaban (Xarelto) 10 Mg Tab 10 MG PO DAILY for Blood Clot Prevention for 14 Days, #14 TAB 0 Refills Hydrocodone/Acetaminophen (Hydrocodone-Acetamin 5-325 mg) 5 Mg-325 Mg Tablet 1 TAB PO Q4H PRN for pain, #60 TAB Metoprolol Tartrate (Lopressor) 50 Mg Tab 50 MG PO Q12HR for Blood Pressure Management, #60 TAB Continued Medications: Alprazolam (Alprazolam) 1 Mg Tab 1 MG PO HS PRN for ANXIETY, TAB 0 Refills Amlodipine (Amlodipine) 5 Mg Tab 5 MG PO DAILY for Blood Pressure Management, #30 TAB 0 Refills Desvenlafaxine ER 24 HR (Pristiq 24 HR) 100 Mg Tab 100 MG PO DAILY, TAB Esomeprazole DR (Nexium) 40 Mg Capdr 40 MG PO DAILY, #30 CAP 1 Refill Levothyroxine (Levothyroxine) 175 Mcg Tab 175 MCG PO DAILY for Thyroid, #30 TAB 0 Refills Losartan (Losartan) 100 Mg Tab 100 MG PO DAILY for Blood Pressure Management, #30 TAB 0 Refills Multiple Vitamin (Thera/Beta-Carotene) 1 Tab Tab 1 TAB PO DAILY, #30 TAB 1 Refill Pancrelipase (Creon) 3,000-9,500-15,000 Units Cap 1 CAP PO TIDPC for Digestive Aid, #90 CAP 0 Refills Thiamine (Vitamin B-1) 100 Mg Tab 100 MG PO DAILY for Nutritional Supplement for 30 Days, #30 TAB 0 Refills Discontinued Medications: Potassium Chloride Microencaps (Klor-Con M20) 20 Meq Tab 20 MEQ PO DAILY for Electrolyte Replacement, #30 TAB 0 Refills Mohinder Park MD Oct 12, 2017 12:37
[2017-10-12 15:39] VITALS: BP 120/55; PULSE 74; RESP 19; TEMP 97.6; O2SAT 100
[2017-10-12 20:10] VITALS: BP 147/68; PULSE 82; RESP 17; TEMP 98.3; O2SAT 98
[2017-10-12] MEDS: ALPRAZolam 1 MG TAB PO PRN (20:48)
[2017-10-12 23:10] VITALS: BP 149/69; PULSE 70; RESP 21; TEMP 96.8; O2SAT 98
[2017-10-13] MEDS: HEPARIN SODIUM - SQ 10,000 UNITS/ML VIAL SQ SCH ×2 (00:30→08:29)
[2017-10-13] MEDS: ACETAMINOPHEN/HYDROcodone 325 MG/5 MG TAB PO PRN ×3 (03:00→12:46)
[2017-10-13] MEDS: LEVOTHYROXINE SODIUM 25 MCG TAB PO SCH (06:40)
[2017-10-13] MEDS: LEVOTHYROXINE SODIUM 150 MCG TAB PO SCH (06:40)
[2017-10-13] MEDS: PANTOPRAZOLE SOD 40 MG DELAYED RELEASE TAB PO SCH (06:40)
[2017-10-13 08:00] VITALS: BP 152/75; PULSE 85; RESP 16; TEMP 97.4; O2SAT 99
[2017-10-13] MEDS: METOPROLOL TARTRATE 50 MG TAB PO SCH (08:28)
[2017-10-13] MEDS: MULTIVITAMIN TAB PO SCH (08:28)
[2017-10-13] MEDS: LOSARTAN 50 MG TAB PO SCH (08:29)
[2017-10-13] MEDS: THIAMINE HCL 100 MG TAB PO SCH (08:29)
[2017-10-13] MEDS: LIPASE/PROTEASE/AMYLASE (6,000/19,000/30,000) CAP PO SCH ×2 (08:29→12:46)
[2017-10-13] MEDS: amLODIPine BESYLATE 5 MG TAB PO SCH (08:29)
[2017-10-13] MEDS: SODIUM CHLORIDE 0.9% FLUSH 10 ML FLUSH IV FLUSH SCH (08:30)
[2017-10-13] MEDS: DOCUSATE SODIUM 50 MG/SENNA 8.6 MG TAB PO SCH (08:30)
--- NOTE | 2017-10-13 10:21 | HHI.PR ---
Subjective Remarks Follow-up mechanical fall/alcohol intoxication 10/11/17-patient seen and examined, denies any significant pain to right lower extremity. No chest pain or shortness of breath. Alert and oriented 3 10/12/17-patient seen and examined, states she feels depressed however denies any pain. 10/13/17-patient seen and examined, requesting increase in her narcotics otherwise stable. Objective Vitals Vital Signs Date Time Temp Pulse Resp B/P (MAP) Pulse Ox O2 Delivery O2 Flow Rate FiO2 10/13/17 08:00 97.4 85 16 152/75 (100) 99 10/12/17 23:10 96.8 70 21 149/69 (95) 98 10/12/17 20:10 98.3 82 17 147/68 (94) 98 10/12/17 15:39 97.6 74 19 120/55 (76) 100 10/12/17 11:13 97.2 66 18 140/71 (94) 100 I/O 10/12/17 10/12/17 10/12/17 10/13/17 10/13/17 10/13/17 07:00 15:00 23:00 07:00 15:00 23:00 Intake Total 800 ml 240 ml 720 ml Output Total 400 ml 150 ml 550 ml 1200 ml Balance -400 ml 650 ml -310 ml -480 ml Intake Oral 800 ml 240 ml 720 ml Output Urine Total 400 ml 150 ml 550 ml 1200 ml # Bowel Movements 0 1 0 Result Diagram: 10/11/17 0840 10/11/17 0840 Objective Remarks GENERAL: NAD SKIN: Warm and dry. HEAD: Normocephalic. EYES: No scleral icterus. No injection or drainage. NECK: Supple, trachea midline. No JVD or lymphadenopathy. CARDIOVASCULAR: Regular rate and rhythm without murmurs, gallops, or rubs. RESPIRATORY: Breath sounds equal bilaterally. No accessory muscle use. GASTROINTESTINAL: Abdomen soft, non-tender, nondistended. MUSCULOSKELETAL: No cyanosis, or edema. BACK: Nontender without obvious deformity. No CVA tenderness. Procedures s/p Intramedullary nail right intertrochanteric femur fracture 10/08/17 A/P Problem List: (1) Fall ICD Code: W19.XXXA - Unspecified fall, initial encounter Status: Acute (2) Alcohol intoxication ICD Code: F10.929 - Alcohol use, unspecified with intoxication, unspecified (3) Alcohol withdrawal delirium, acute, hyperactive ICD Code: F10.231 - Alcohol dependence with withdrawal delirium (4) Metabolic acidosis ICD Code: E87.2 - Acidosis (5) Hyperglycemia ICD Code: R73.9 - Hyperglycemia, unspecified (6) Transaminitis ICD Code: R74.0 - Nonspecific elevation of levels of transaminase and lactic acid dehydrogenase [LDH] (7) Intertrochanteric fracture of right hip ICD Code: S72.141A - Displaced intertrochanteric fracture of right femur, initial encounter for closed fracture Status: Acute (8) Uncontrolled hypertension ICD Code: I10 - Essential (primary) hypertension (9) Hypothyroid ICD Code: E03.9 - Hypothyroidism Status: Chronic (10) Depression ICD Code: F32.9 - Depression Status: Chronic Assessment and Plan 72 Year-old female with Fall Cervical spine CT shows degenerative changes without fracture. Hip and pelvis x-ray shows mildly displaced intertrochanteric fracture. Alcohol intoxication Continue with CIWA protocol, Rally pack Alcohol withdrawal delirium, acute, hyperactive Continue CIWA protocol with benzodiazepines. Metabolic acidosis Resolved after IV fluids. Hyperglycemia-resolved HbA1C 4.7 - diabetes ruled out. Transaminitis-resolved Intertrochanteric fracture of right hip status post right intramedullary fixation by orthopedic surgery. Pain control as per orthopedic surgery. Uncontrolled hypertension Control, Continue Metoprolol 50 mg po Q 12 hrs. Hypothyroid Continue levothyroxine. TSH and free t4 normal. Depression Continue desvenlafaxine and alprazolam as needed for anxiety. GI prophylaxis: Place of PPI. DVT prophylaxis: SCDs, heparin SQ. D/C to CIR today Problem Qualifiers (1) Fall: Qualified Codes: W19.XXXA - Unspecified fall, initial encounter (2) Alcohol intoxication: Qualified Codes: F10.921 - Alcohol use, unspecified with intoxication delirium (3) Intertrochanteric fracture of right hip: Qualified Codes: S72.141A - Displaced intertrochanteric fracture of right femur , initial encounter for closed fracture (4) Hypothyroid: Qualified Codes: E03.9 - Hypothyroidism, unspecified (5) Depression: Qualified Codes: F32.9 - Major depressive disorder, single episode, unspecified Mohinder Park MD Oct 13, 2017 10:21
[2017-10-13] MEDS: NS + KCL 40 MEQ INJ 1,000 ML IV SCH (10:55)
[2017-10-13 12:00] VITALS: BP 152/76; PULSE 75; RESP 18; TEMP 97.8; O2SAT 98
== END 2017-10-13 15:19 | DRG 481 ==
LOC: NEPE 10:14 → NEDA 13:18 → N06B 15:38 → N03B 19:29 → N06A 10-10 17:23
PROVIDERS: ADMIT Hospitalist; ATTEND Hospitalist
PROC: 0QS606Z Reposition Right Upper Femur with Intramedullary Internal Fixation Device, Open Approach (ICD-10-PCS; principal; 2017-10-08 13:28)
DX: S72.141A Displaced intertrochanteric fracture of right femur, initial encounter for closed fracture (principal); F10.231 Alcohol dependence with withdrawal delirium; E87.2 Acidosis; M06.9 Rheumatoid arthritis, unspecified; K86.1 Other chronic pancreatitis; I10 Essential (primary) hypertension; E03.9 Hypothyroidism, unspecified; W01.0XXA Fall on same level from slipping, tripping and stumbling without subsequent striking against object, initial encounter; Y92.000 Kitchen of unspecified non-institutional (private) residence as the place of occurrence of the external cause; M19.90 Unspecified osteoarthritis, unspecified site; Z86.73 Personal history of transient ischemic attack (TIA), and cerebral infarction without residual deficits; I25.10 Atherosclerotic heart disease of native coronary artery without angina pectoris; H91.90 Unspecified hearing loss, unspecified ear; Z87.11 Personal history of peptic ulcer disease; K21.9 Gastro-esophageal reflux disease without esophagitis; Z85.3 Personal history of malignant neoplasm of breast; F41.9 Anxiety disorder, unspecified; F32.9 Major depressive disorder, single episode, unspecified; Y90.7 Blood alcohol level of 200-239 mg/100 ml; R74.0 Nonspecific elevation of levels of transaminase and lactic acid dehydrogenase [LDH]; R73.09 Other abnormal glucose
CPT/HCPCS: 70450; 71045; 72125; 73502; 76000; 76705; 76937; 80048; 80053; 80307; 82550; 83036; 83735; 84100; 84439; 84443; 84484; 85025; 85027; 85610; 85730; 86850; 86900; 86901; 87641; 93005; 94150; 96374; 96375; C1713; J0330; J0360; J0690; J1100; J1200; J1580; J1644; J2060; J2250; J2270; J2370; J2405; J3010; J3370; J3480; J7050; J7121

== ENCOUNTER 2017-10-25 06:30 | Emergency (ER) | payer MEDICARE, BC ==
[~2017-10-25] VITALS: Ht 167.6 cm; Wt 75.0 kg
[~2017-10-25 06:30] MED LIST changes: +CALC250 PO; +FOLI1TAB6 PO; -HYDR-3516 PO; -KLOR20TA3 PO; +METO-309 PO; +NITR100C4 PO; -ONDA4TAB7 SL; +PERC5TAB12 PO; +XARE10TA PO; -ZOFR4TAB3 SL
[2017-10-25 06:32] VITALS: BP 140/67; PULSE 80; RESP 16; TEMP 98.5; O2SAT 100
[2017-10-25] MEDS ORDERED: THIAMINE INJ 100 MG in SODIUM CHLORIDE 0.9% INJ 100 ML IV ONE (07:00)
[2017-10-25] MEDS ORDERED: SODIUM CHLORID 0.9% 500 ML INJ 500 ML IV ONE (07:00)
[2017-10-25] MEDS ORDERED: ONDANSETRON HCL 4 MG/2 ML VIAL IV PUSH ONE (07:00)
--- NOTE | 2017-10-25 07:02 | PD ---
HPI Chief Complaint: Abdominal Pain Time Seen by Provider: 06:38 Travel History International Travel<30 days: No Contact w/Intl Traveler<30days: No Traveled to known affect area: No History of Present Illness HPI The patient is a 72 year old female who presents to the [facility] emergency department with a history of abdominal pain associated with nausea, vomiting, and diarrhea that began sometime earlier this evening. The patient unfortunately is a poor historian and reports that she has difficulty recalling the events. The patient reports that she does have a history of pancreatitis and peptic ulcer disease. She reports that she had not been drinking alcohol for weeks up until last night when she drank 3 alcoholic beverages. The patient reports that she has vomited 3 times. She is unsure how many loose stools she has had. She reports that she is currently residing at home and has a caregiver that assists her. The patient reports having generalized abdominal pain that is worse in the midepigastric area. On review of systems otherwise, the patient denies having any known recent fevers, cough, congestion, neck pain , chest pain, shortness of breath, urinary symptoms, one-sided weakness, slurred speech, facial droop, difficulty with word finding ability, or vision changes. [facility] Past Medical History Narrative Medical The patient's past medical history is significant for alcohol abuse, depression , pancreatitis, hypertension, hypothyroid disorder, history of breast cancer, history of recent right hip fracture status post repair by . The admission for her hip fracture was on October 06 and the patient was discharged to [facility] and was there from October 13 - October 23. According to the record the patient is anticoagulated on Xarelto. Hx Anticoagulant Therapy: Yes Arthritis: Yes Asthma: No Autoimmune Disease: Yes (RA) Blood Disorders: No Anxiety: Yes Depression: Yes Heart Rhythm Problems: No Cancer: Yes (LEFT BREAST CA) Cardiovascular Problems: Yes High Cholesterol: No Chemotherapy: No Chest Pain: No Congestive Heart Failure: No COPD: No Cerebrovascular Accident: Yes (2016) Coronary Artery Disease: Yes Diabetes: No Diminished Hearing: Yes Endocrine: Yes (CHRONIC PANCREATITIS) Gastrointestinal Disorders: Yes (GASTRIC ULCERS) GERD: Yes Genitourinary: No Headaches: Yes Hiatal Hernia: No Heparin Induced Thrombocytopen: No Hypertension: Yes Immune Disorder: Yes Implanted Vascular Access Dvce: No Kidney Stones: No Medical other: Yes (FLUID RETENTION-ACID REFLUX) Musculoskeletal: Yes Neurologic: Yes Psychiatric: Yes Reproductive: No Respiratory: No Immunizations Current: Yes Migraines: Yes Pancreatitis: Yes Radiation Therapy: Yes Renal Failure: No Seizures: Yes (history of one) Sickle Cell Disease: No Sleep Apnea: No Thyroid Disease: Yes (HYPOTHYROID) Ulcer: Yes Tetanus Vaccination: < 5 Years Influenza Vaccination: Yes Menopausal: Yes : 2 Para: 1 Miscarriage: 1 Past Surgical History Narrative Surgical The patient's past surgical history is significant for breast lumpectomy, hysterectomy, left hip ORIF, right hip ORIF. Abdominal Surgery: Yes (HYSTERECTOMY) AICD: No Appendectomy: Yes Arteriovenous Shunt: No Body Medical Devices: L hip hardware in place , PT IS NOT SURE Cardiac Surgery: No Cholecystectomy: Yes Ear Surgery: No Endocrine Surgery: No Eye Surgery: No Genitourinary Surgery: No Gynecologic Surgery: Yes (TOTAL HYSTERECTOMY) Hysterectomy: Yes Insulin Pump: No Joint Replacement: No Neurologic Surgery: No Oral Surgery: No Pacemaker: No Thoracic Surgery: No Other Surgery: Yes (COLDWELL/SINUS REPAIR, LEFT LUMPECTOMY) Social History Alcohol Use: Yes (DAILY LIQUOR/WINE USE) Tobacco Use: No Substance Use: No Allergies-Medications (Allergen,Severity, Reaction): Coded Allergies: Sulfa (Sulfonamide Antibiotics) (Unverified Allergy, Intermediate, rash, ) Reported Meds & Prescriptions Reported Meds & Active Scripts Active Folic Acid 1 Mg Tablet 1 Mg PO DAILY Oyster Shell 250 mg + Vit D Tb (Calcium/Vitamin D) 250 Mg Calcium (625 Mg)-125 Unit Tablet 250 Mg PO TID Percocet (Oxycodone-Acetaminophen) 5-325 mg Tab 1 Tab PO Q6H PRN Nitrofurantoin Monohydrate Macrocrystals (Nitrofurantoin Monoh/Nitrofur Macro) 100 Mg Cap 100 Mg PO BIDPC Lopressor (Metoprolol Tartrate) 50 Mg Tab 50 Mg PO Q12HR Xarelto (Rivaroxaban) 10 Mg Tab 10 Mg PO DAILY Amlodipine (Amlodipine Besylate) 5 Mg Tab 5 Mg PO DAILY Vitamin B-1 (Thiamine HCl) 100 Mg Tab 100 Mg PO DAILY 30 Days Creon (Pancrelipase) 3,000-9,500-15,000 Units Cap 1 Cap PO TIDPC Maxzide (Triamterene/HCTZ) 75-50 Mg Tab 1 Tab PO DAILY Losartan (Losartan Potassium) 100 Mg Tab 100 Mg PO DAILY Alprazolam 1 Mg Tab 1 Mg PO HS PRN Levothyroxine (Levothyroxine Sodium) 175 Mcg Tab 175 Mcg PO DAILY Thera/Beta-Carotene (Multiple Vitamin) 1 Tab Tab 1 Tab PO DAILY Nexium (Esomeprazole DR) 40 Mg Capdr 40 Mg PO DAILY Reported Pristiq 24 HR (Desvenlafaxine ER 24 HR) 100 Mg Tab 100 Mg PO DAILY Review of Systems Except as stated in HPI: all other systems reviewed are Neg General / Constitutional: No: Fever Eyes: No: Visual changes HENT: No: Headaches Cardiovascular: No: Chest Pain or Discomfort Respiratory: No: Shortness of Breath Gastrointestinal: Positive: Nausea, Vomiting, Diarrhea, Abdominal Pain, Changes in Bowel Habits Genitourinary: No: Dysuria Musculoskeletal: No: Pain Skin: No Rash Neurologic: No: Weakness Psychiatric: No: Depression Endocrine: No: Polydipsia Hematologic/Lymphatic: No: Easy Bruising Physical Exam Narrative General: The patient is a well-developed well-nourished female in no acute distress. Head and Neck exam: Head is normocephalic atraumatic. Eyes: EOMI, pupils are equal round and reactive to light. Nose: Midline septum with pink mucous membranes Mouth: Dentition unremarkable. Moist mucus membranes. Posterior oropharynx is not erythematous. No tonsillar hypertrophy. Uvula midline. Airway patent. Neck: No palpable lymphadenopathy. No nuchal rigidity. No thyromegaly. Cardiovascular: Regular rate and rhythm without murmurs, gallops, or rubs. Lungs: Clear to auscultation bilaterally. No wheezes, rhonchi, or rales. Abdomen: Soft, with reported tenderness on palpation in the midepigastric area, no other tenderness on palpation of the other quadrants of the abdomen. Normal bowel sounds are audible. No tenderness on palpation of McBurney's point no guarding , rebound, or rigidity. Negative Thomas sign. Extremities: No clubbing, cyanosis, or edema. 2+ pulses in all 4 extremities. No calf tenderness on palpation. Back: No spinous process tenderness to palpation. No costovertebral angle tenderness to palpation. Neurologic Exam: Grossly nonfocal. The patient is oriented to person, place, month, year, president. Skin Exam: No rash noted. Intact skin that is warm and dry. The patient on examination of the right lateral hip is noted to have a healing postoperative wound with tierra in place. No signs of infection. No erythema, edema, or drainage noted. Data Data Last Documented VS Vital Signs Date Time Temp Pulse Resp B/P (MAP) Pulse Ox O2 Delivery O2 Flow Rate FiO2 10/25/17 06:32 98.5 80 16 140/67 (91) 100 Orders Orders Electrocardiogram (10/25/17 06:50) Complete Blood Count With Diff (10/25/17 06:50) Comprehensive Metabolic Panel (10/25/17 06:50) Creatine Kinase (Cpk) (10/25/17 06:50) Ckmb (Isoenzyme) Profile (10/25/17 06:50) Troponin I (10/25/17 06:50) Prothrombin Time / Inr (Pt) (10/25/17 06:50) Act Partial Throm Time (Ptt) (10/25/17 06:50) Lipase (10/25/17 06:50) Urinalysis - C+S If Indicated (10/25/17 06:50) Cath For Specimen (10/25/17 06:50) Magnesium (Mg) (10/25/17 06:50) Ammonia (10/25/17 06:50) Chest, Single Ap (10/25/17 06:50) Iv Access Insert/Monitor (10/25/17 06:50) Ecg Monitoring (10/25/17 06:50) Oximetry (10/25/17 06:50) Drug Screen, Random Urine (10/25/17 06:50) Alcohol (Ethanol) (10/25/17 06:50) Sodium Chlorid 0.9% 500 Ml Inj (Ns 500 M (10/25/17 07:00) Ondansetron Inj (Zofran Inj) (10/25/17 07:00) Thiamine Inj (Thiamine Inj) (10/25/17 07:00) MDM Medical Decision Making Medical Screen Exam Complete: Yes Emergency Medical Condition: Yes Medical Record Reviewed: Yes Differential Diagnosis Acute pancreatitis, versus chronic pancreatitis, versus alcohol related gastritis, versus gastroenteritis, versus dehydration, versus electrolyte derangement Narrative Course During the course of the patient's emergency department visit, the patient's history, examination, and differential diagnosis were reviewed with the patient. The patient was placed on a surveillance system monitor with oximetry and frequent blood pressure monitoring. The patient had IV access obtained and blood work sent for analysis. The patient had an EKG done on arrival. The patient's EKG shows a sinus rhythm heart rate of 79, QRS duration is 102 ms, QTC [address] segment elevation. T waves are inverted in V1. The patient was initially provided normal saline at 500 mL bolus 1, Zofran 4 mg IV. The patient's laboratory studies and imaging studies are pending at the conclusion of my shift. The patient's case will be checked out to the oncoming emergency physician to disposition the patient based on the conclusion of her workup. Diagnosis Primary Impression: Abdominal pain Qualified Codes: R10.13 - Epigastric pain Additional Impression: Nausea, vomiting, and diarrhea Meagan Jones MD Oct 25, 2017 07:02
[2017-10-25 07:05] VITALS: BP 136/69; PULSE 76; RESP 16; O2SAT 100
[2017-10-25 07:07] LABS: AUTOMATED NEUTROPHIL # 5.8 TH/MM3 (1.8-7.7); BASOPHIL % 0.4 % (0.0-2.0); EOSINOPHIL % 0.5 % (0.0-4.0); HEMOGLOBIN 11.1 GM/DL (11.6-15.3); LYMPH % 17.6 % (9.0-44.0); LYMPHOCYTE # 1.4 TH/MM3 (1.0-4.8); MEAN CELL VOLUME 95.3 FL (80.0-100.0); MEAN CORPUSCULAR HEMOGLOBIN 33.9 PG (27.0-34.0); MEAN CORPUSCULAR HGB CONC 35.6 % (32.0-36.0); MEAN PLATELET VOLUME 7.3 FL (7.0-11.0); MONO % 10.1 % (0.0-8.0); MONOCYTE # 0.8 TH/MM3 (0-0.9); NEUT % 71.4 % (16.0-70.0); PLATELET COUNT 663 TH/MM3 (150-450); RED BLOOD COUNT 3.26 MIL/MM3 (4.00-5.30); RED CELL DISTRIBUTION WIDTH 15.5 % (11.6-17.2); WHITE BLOOD COUNT 8.1 TH/MM3 (4.0-11.0)
[2017-10-25] MEDS ORDERED: MORPHINE SULFATE 4 MG/ML INJ IV PUSH ONE (07:15)
[2017-10-25 07:21] LABS: INTERNATIONAL NORMALIZED RATIO 1.1 RATIO; PROTHROMBIN TIME - PATIENT 11.2 SEC (9.8-11.6)
[2017-10-25 07:28] LABS: ALBUMIN 3.6 GM/DL (3.4-5.0); ALT (GPT) 17 U/L (10-53); AST (GOT) 22 U/L (15-37); BICARBONATE 20.1 MEQ/L (21.0-32.0); BLOOD UREA NITROGEN 19 MG/DL (7-18); CALCIUM 9.8 MG/DL (8.5-10.1); CHLORIDE 96 MEQ/L (98-107); CREATININE 1.18 MG/DL (0.50-1.00); GLOMERULAR FILTRATION RATE 45 ML/MIN (>89); GLUCOSE,RANDOM 115 MG/DL (74-106); MAGNESIUM 1.5 MG/DL (1.5-2.5); SODIUM (NA) 127 MEQ/L (136-145)
[2017-10-25 07:31] LABS: ALKALINE PHOSPHATASE 148 U/L (45-117); TOTAL BILIRUBIN ADULT 0.7 MG/DL (0.2-1.0); TOTAL PROTEIN 8.3 GM/DL (6.4-8.2); TROPONIN I LESS THAN 0.02 NG/ML (0.02-0.05)
--- NOTE | 2017-10-25 07:37 | RADRPT ---
EXAM DATE/TIME: 10/25/2017 07:32 [facility] COMPARISON: CHEST SINGLE AP, October 06, 2017, 11:26. INDICATIONS : Shortness of breath. MEDICAL HISTORY : Hypothyroid. CVA. CAD. Hypertension. Panacreatitis. IBS. GERD. SURGICAL HISTORY : Appendectomy. Cholecystectomy. Hysterectomy. ENCOUNTER: Initial ACUITY: 3 days PAIN SCORE: 0/10 LOCATION: Bilateral chest FINDINGS: A single view of the chest demonstrates the lungs to be symmetrically aerated without evidence of mas s, infiltrate or effusion. The cardiomediastinal contours are unremarkable. A fracture deformity of the right distal clavicle is noted which appears subacute to chronic. There are overlying electrocard iogram leads. CONCLUSION: No acute cardiopulmonary disease. Jose Brand MD on October 25, 2017 at 7:35 Board Certified Radiologist. This report was verified electronically.
--- NOTE | 2017-10-25 07:42 | PD ---
Data Data Last Documented VS Vital Signs Date Time Temp Pulse Resp B/P (MAP) Pulse Ox O2 Delivery O2 Flow Rate FiO2 10/25/17 11:25 87 17 140/89 (106) 99 10/25/17 09:30 Room Air 10/25/17 06:32 98.5 Orders Orders Electrocardiogram (10/25/17 06:50) Complete Blood Count With Diff (10/25/17 06:50) Comprehensive Metabolic Panel (10/25/17 06:50) Creatine Kinase (Cpk) (10/25/17 06:50) Ckmb (Isoenzyme) Profile (10/25/17 06:50) Troponin I (10/25/17 06:50) Prothrombin Time / Inr (Pt) (10/25/17 06:50) Act Partial Throm Time (Ptt) (10/25/17 06:50) Lipase (10/25/17 06:50) Urinalysis - C+S If Indicated (10/25/17 06:50) Cath For Specimen (10/25/17 06:50) Magnesium (Mg) (10/25/17 06:50) Ammonia (10/25/17 06:50) Chest, Single Ap (10/25/17 06:50) Iv Access Insert/Monitor (10/25/17 06:50) Ecg Monitoring (10/25/17 06:50) Oximetry (10/25/17 06:50) Drug Screen, Random Urine (10/25/17 06:50) Alcohol (Ethanol) (10/25/17 06:50) Sodium Chlorid 0.9% 500 Ml Inj (Ns 500 M (10/25/17 07:00) Ondansetron Inj (Zofran Inj) (10/25/17 07:00) Thiamine Inj (Thiamine Inj) (10/25/17 07:00) Morphine Inj (Morphine Inj) (10/25/17 07:15) Ct Abd/Pel W Iv Contrast(Rout) (10/25/17 ) Morphine Inj (Morphine Inj) (10/25/17 07:45) Iohexol 350 Inj (Omnipaque 350 Inj) (10/25/17 08:34) Cath For Specimen (10/25/17 08:57) Urine Culture (10/25/17 10:00) Ed Discharge Order (2/28/18 11:02) Labs Laboratory Tests Test 10/25/17 06:50 10/25/17 06:55 10/25/17 10:00 White Blood Count 8.1 TH/MM3 Red Blood Count 3.26 MIL/MM3 Hemoglobin 11.1 GM/DL Hematocrit 31.0 % Mean Corpuscular Volume 95.3 FL Mean Corpuscular Hemoglobin 33.9 PG Mean Corpuscular Hemoglobin Concent 35.6 % Red Cell Distribution Width 15.5 % Platelet Count 663 TH/MM3 Mean Platelet Volume 7.3 FL Neutrophils (%) (Auto) 71.4 % Lymphocytes (%) (Auto) 17.6 % Monocytes (%) (Auto) 10.1 % Eosinophils (%) (Auto) 0.5 % Basophils (%) (Auto) 0.4 % Neutrophils # (Auto) 5.8 TH/MM3 Lymphocytes # (Auto) 1.4 TH/MM3 Monocytes # (Auto) 0.8 TH/MM3 Eosinophils # (Auto) 0.0 TH/MM3 Basophils # (Auto) 0.0 TH/MM3 CBC Comment DIFF FINAL Differential Comment Prothrombin Time 11.2 SEC Prothromb Time International Ratio 1.1 RATIO Activated Partial Thromboplast Time 30.6 SEC Blood Urea Nitrogen 19 MG/DL Creatinine 1.18 MG/DL Random Glucose 115 MG/DL Total Protein 8.3 GM/DL Albumin 3.6 GM/DL Calcium Level 9.8 MG/DL Magnesium Level 1.5 MG/DL Alkaline Phosphatase 148 U/L Aspartate Amino Transf (AST/SGOT) 22 U/L Alanine Aminotransferase (ALT/SGPT) 17 U/L Total Bilirubin 0.7 MG/DL Sodium Level 127 MEQ/L Potassium Level 4.5 MEQ/L Chloride Level 96 MEQ/L Carbon Dioxide Level 20.1 MEQ/L Anion Gap 11 MEQ/L Estimat Glomerular Filtration Rate 45 ML/MIN Total Creatine Kinase 37 U/L Troponin I LESS THAN 0.02 NG/ML Lipase 271 U/L Ethyl Alcohol Level LESS THAN 3 MG/DL Ammonia 11 MCMOL/L Urine Color YELLOW Urine Turbidity HAZY Urine pH 5.5 Urine Specific [place] 1.021 Urine Protein NEG mg/dL Urine Glucose (UA) NEG mg/dL Urine Ketones NEG mg/dL Urine Occult Blood NEG Urine Nitrite NEG Urine Bilirubin NEG Urine Urobilinogen LESS THAN 2.0 MG/DL Urine Leukocyte Esterase NEG Urine RBC 1 /hpf Urine WBC LESS THAN 1 /hpf Urine Squamous Epithelial Cells 8 /hpf Urine Bacteria FEW /hpf Microscopic Urinalysis Comment CATH-CULTURE IND Urine Opiates Screen POS Urine Barbiturates Screen NEG Urine Amphetamines Screen NEG Urine Benzodiazepines Screen POS Urine Cocaine Screen NEG Urine Cannabinoids Screen NEG MDM Supervised Visit with ALFREDA: No Narrative Course Patient CARE assume from Dr. Jones at 0700, is a 72-year-old female with a history of alcohol abuse presented initially for epigastric pain, on my evaluation the patient states the pain is now localizing into the left lower quadrant, she states she feels a lump down there as well and wonders if she has a blockage because she has had blockages before. After 4 mg of morphine she is not feeling any better. Her labs are returned and there is a moderate hyponatremia with a sodium of 127, my examination the abdomen does have voluntary guarding but no rebound no percussive tenderness, additional morphine was ordered as well as a CT of her abdomen. Last 24 hours Impressions Chest X-Ray 10/25/17 0650 Signed Impressions: Service Date/Time: Wednesday, October 25, 2017 07:32 - CONCLUSION: No acute cardiopulmonary disease. Jose Brand MD Abdomen/Pelvis CT 10/25/17 0000 Signed Impressions: Service Date/Time: Wednesday, October 25, 2017 08:29 - CONCLUSION: 1. Cannot exclude focal pancreatitis head and uncinate process. There is dilatation of the proximal and mid pancreatic duct with atrophy 2. No inflammatory changes in the abdomen 3. No other etiology for the abdominal pain Balaji Hill MD FACR Discussed CT findings with the patient, discussed her hyponatremia. She is not currently having any abdominal pain and has not had any nausea or vomiting while in the emergency department and is hungry. She has tolerated p.o. in the emergency department. patient has been told she is hyponatremic in the past. She would really like to go home. On further examination the patient is not having any symptoms of hyponatremia at this time. I discussed with her that if he gets worse that she could have seizures and any weakness should prompt return to the ED for reevaluation. Discussed with her need for follow-up with her primary care physician closely for repeat sodium level sometime within the next few days. She verbalized understanding and agreement. Diagnosis Primary Impression: Abdominal pain Qualified Codes: R10.13 - Epigastric pain Additional Impression: Nausea, vomiting, and diarrhea Disposition: 01 DISCHARGE HOME Condition: Stable Trey Caldera MD Oct 25, 2017 07:42
[2017-10-25] MEDS ORDERED: MORPHINE SULFATE 2 MG/ML INJ IV PUSH ONE (07:45)
[2017-10-25] MEDS ORDERED: IOHEXOL 350 MG/ML 10 ML VIAL (for RAD DIAG) IVCONTRAST ONE (08:34)
--- NOTE | 2017-10-25 08:45 | RADRPT ---
EXAM DATE/TIME: 10/25/2017 08:29 [facility] COMPARISON: CT ABDOMEN & PELVIS W CONTRAST, July 04, 2017, 18:02. INDICATIONS : Abdominal pain, nausea, vomiting, diarrhea IV CONTRAST: 80 cc Omnipaque 350 (iohexol) IV ORAL CONTRAST: No oral contrast ingested. RADIATION DOSE: 7.57 CTDIvol (mGy) MEDICAL HISTORY : Cerebrovascular disease. Cardiovascular disease Hypertension.Ulcers SURGICAL HISTORY : Cholecystectomy. Appendectomy.Hysterectomy. ENCOUNTER: Initial ACUITY: 1 day PAIN SCALE: 6/10 LOCATION: Bilateral Abdomen TECHNIQUE: Volumetric scanning of the abdomen and pelvis was performed. Using automated exposure control and ad justment of the mA and/or kV according to patient size, radiation dose was kept as low as reasonably achievable to obtain optimal diagnostic quality images. DICOM format image data is available electro nically for review and comparison. FINDINGS: Visualized lung base clear. Mild complete cardiomegaly Scattered small well circumscribed focal hypodensities in the liver probably cysts Evidence for chronic pancreatitis with dilatation of the pancreatic duct. There is mild prominence o f the uncinate process with calcifications evident. Focal pancreatitis of the head, the only real re maining pancreas would be consideration Granulomas in the spleen Adrenal glands unremarkable Stable renal cyst bilaterally No ascites or adenopathy Bowel and mesentery unremarkable There is no ascites The pelvis bladder and adnexal regions are unremarkable Moderate artifact from orthopedic hardware degenerative changes lumbar spine. CONCLUSION: 1. Cannot exclude focal pancreatitis head and uncinate process. There is dilatation of the proximal and mid pancreatic duct with atrophy 2. No inflammatory changes in the abdomen 3. No other etiology for the abdominal pain Balaji Hill MD FACR on October 25, 2017 at 8:41 Board Certified Radiologist. This report was verified electronically.
[2017-10-25 09:30] VITALS: BP 165/78; PULSE 100; RESP 18; O2SAT 100
[2017-10-25 10:30] LABS: BACTERIA, URINE FEW /hpf; BILIRUBIN, URINE NEG (NEG); BLOOD, URINE NEG (NEG); GLUCOSE,URINE NEG (NEG); KETONE, URINE NEG (NEG); NITRITE,URINE NEG (NEG); PH, URINE 5.5 (5.0-8.5); SQUAMOUS EPITHELIAL CELL URINE 8 /hpf (0-5); URINE COLOR YELLOW (YELLW/STRAW); URINE LEUKOCYTE ESTERASE NEG (NEG)
[2017-10-25 11:25] VITALS: BP 140/89
--- NOTE | 2017-10-25 12:26 | EKG ---
Date Performed: 10/25/2017 Time Performed: 06:34:59 PTAGE: 72 years EKG: Sinus rhythm MODERATE ST DEPRESSION ABNORMAL ECG PREVIOUS TRACING : 10/07/2017 05.50 Since the prior tracing, there has been no significant win DOCTOR: Cesar Swanson Interpretating Date/Time 10/25/2017 12:25:00
== END 2017-10-25 11:28 | disposition home or self-care (01) ==
LOC: NEPC 06:30
DX: R10.13 Epigastric pain (principal); R11.2 Nausea with vomiting, unspecified; R19.7 Diarrhea, unspecified; R94.31 Abnormal electrocardiogram [ECG] [EKG]; F32.9 Major depressive disorder, single episode, unspecified; M06.9 Rheumatoid arthritis, unspecified; I25.10 Atherosclerotic heart disease of native coronary artery without angina pectoris; E03.9 Hypothyroidism, unspecified; Z79.01 Long term (current) use of anticoagulants; Z85.3 Personal history of malignant neoplasm of breast; Z86.73 Personal history of transient ischemic attack (TIA), and cerebral infarction without residual deficits; Z79.899 Other long term (current) drug therapy
CPT/HCPCS: 71045; 74177; 80053; 80307; 81001; 82140; 82550; 83690; 83735; 84484; 85025; 85610; 85730; 87086; 93005; 96365; 96375; 96376; 99285; J2270; J2405; J3411; J7040; Q9967

== ENCOUNTER 2017-11-20 09:29 | Inpatient (IN) | payer MEDICARE, BC ==
[~2017-11-20] VITALS: Ht 165.1 cm; Wt 63.6 kg
[2017-11-20 10:41] VITALS: BP 142/69; PULSE 116; RESP 18; TEMP 99.3; O2SAT 100
[2017-11-20] MEDS ORDERED: SODIUM CHLOR 0.9% 1000 ML INJ 1,000 ML IV SCH (11:20)
[2017-11-20] MEDS ORDERED: FLUMAZENIL 0.5 MG/5 ML VIAL IV PUSH PRN (11:30)
[2017-11-20] MEDS ORDERED: SODIUM CHLORIDE 0.9% FLUSH 10 ML FLUSH IV FLUSH PRN ×2 (11:30→14:45)
[2017-11-20] MEDS ORDERED: LORazepam 2 MG/ML VIAL IV PUSH PRN ×4 (11:30)
[2017-11-20] MEDS ORDERED: LORazepam 2 MG TAB PO PRN (11:30)
[2017-11-20] MEDS ORDERED: ONDANSETRON HCL 4 MG/2 ML VIAL IVP ONE (11:30)
[2017-11-20] MEDS ORDERED: LORazepam 2 MG/ML VIAL IV PUSH ONE (11:30)
--- NOTE | 2017-11-20 11:45 | PD ---
HPI Chief Complaint: Abdominal Pain Time Seen by Provider: 11:08 Travel History International Travel<30 days: No Contact w/Intl Traveler<30days: No History of Present Illness HPI 72-year-old female with PMH of chronic alcoholism, pancreatitis presents to the ED for evaluation of chest pain, abdominal pain, nausea, vomiting, watery stools. Onset at 3 AM. Pain is rated 8/10, constant, occasionally sharp. No alleviating or exacerbating factors reported. Patient denies palpitations, shortness of breath, fever, chills, dysuria, back pain. She states her last alcoholic drink was approximately 3 days ago. PFSH Past Medical History Hx Anticoagulant Therapy: Yes Arthritis: Yes Asthma: No Autoimmune Disease: Yes (RA) Blood Disorders: No Anxiety: Yes Depression: Yes Heart Rhythm Problems: No Cancer: Yes (LEFT BREAST CA) Cardiovascular Problems: Yes High Cholesterol: No Chemotherapy: No Chest Pain: No Congestive Heart Failure: No COPD: No Cerebrovascular Accident: Yes (2016) Coronary Artery Disease: Yes Diabetes: No Diminished Hearing: Yes Endocrine: Yes (CHRONIC PANCREATITIS) Gastrointestinal Disorders: Yes (GASTRIC ULCERS) GERD: Yes Genitourinary: No Headaches: Yes Hiatal Hernia: No Heparin Induced Thrombocytopen: No Hypertension: Yes Immune Disorder: Yes Implanted Vascular Access Dvce: No Kidney Stones: No Musculoskeletal: Yes Neurologic: Yes Psychiatric: Yes Reproductive: No Respiratory: No Immunizations Current: Yes Migraines: Yes Pancreatitis: Yes Radiation Therapy: Yes Renal Failure: No Seizures: Yes (history of one) Sickle Cell Disease: No Sleep Apnea: No Thyroid Disease: Yes (HYPOTHYROID) Ulcer: Yes Menopausal: Yes : 2 Para: 1 Miscarriage: 1 Past Surgical History Abdominal Surgery: Yes (HYSTERECTOMY) AICD: No Appendectomy: Yes Arteriovenous Shunt: No Body Medical Devices: L hip hardware in place , PT IS NOT SURE Cardiac Surgery: No Cholecystectomy: Yes Ear Surgery: No Endocrine Surgery: No Eye Surgery: No Genitourinary Surgery: No Gynecologic Surgery: Yes (TOTAL HYSTERECTOMY) Hysterectomy: Yes Insulin Pump: No Joint Replacement: No Neurologic Surgery: No Oral Surgery: No Pacemaker: No Thoracic Surgery: No Other Surgery: Yes (COLDWELL/SINUS REPAIR, LEFT LUMPECTOMY) Social History Alcohol Use: Yes (DAILY LIQUOR/WINE USE) Tobacco Use: No Substance Use: No Allergies-Medications (Allergen,Severity, Reaction): Coded Allergies: Sulfa (Sulfonamide Antibiotics) (Unverified Allergy, Intermediate, rash, ) Reported Meds & Prescriptions Reported Meds & Active Scripts Active Folic Acid 1 Mg Tablet 1 Mg PO DAILY Oyster Shell 250 mg + Vit D Tb (Calcium/Vitamin D) 250 Mg Calcium (625 Mg)-125 Unit Tablet 250 Mg PO TID Percocet (Oxycodone-Acetaminophen) 5-325 mg Tab 1 Tab PO Q6H PRN Lopressor (Metoprolol Tartrate) 50 Mg Tab 50 Mg PO Q12HR Xarelto (Rivaroxaban) 10 Mg Tab 10 Mg PO DAILY Amlodipine (Amlodipine Besylate) 5 Mg Tab 5 Mg PO DAILY Vitamin B-1 (Thiamine HCl) 100 Mg Tab 100 Mg PO DAILY 30 Days Creon (Pancrelipase) 3,000-9,500-15,000 Units Cap 1 Cap PO TIDPC Maxzide (Triamterene/HCTZ) 75-50 Mg Tab 1 Tab PO DAILY Losartan (Losartan Potassium) 100 Mg Tab 100 Mg PO DAILY Alprazolam 1 Mg Tab 1 Mg PO HS PRN Levothyroxine (Levothyroxine Sodium) 175 Mcg Tab 175 Mcg PO DAILY Thera/Beta-Carotene (Multiple Vitamin) 1 Tab Tab 1 Tab PO DAILY Nexium (Esomeprazole DR) 40 Mg Capdr 40 Mg PO DAILY Reported Pristiq 24 HR (Desvenlafaxine ER 24 HR) 100 Mg Tab 100 Mg PO DAILY Review of Systems Except as stated in HPI: all other systems reviewed are Neg Physical Exam Narrative GENERAL: Well-nourished, well-developed anxious, tremulous white female in no acute distress. SKIN: Focused skin assessment warm/dry. HEAD: Normocephalic. EYES: No scleral icterus. No injection or drainage. NECK: Supple, trachea midline. No JVD or lymphadenopathy. CARDIOVASCULAR: Regular rate and rhythm without murmurs, gallops, or rubs. RESPIRATORY: Breath sounds clear and equal bilaterally. No accessory muscle use. GASTROINTESTINAL: Abdomen soft, nondistended, tender to palpation in the left upper quadrant. Voluntary guarding. Hypoactive bowel sounds. MUSCULOSKELETAL: No cyanosis, or edema. BACK: Nontender without obvious deformity. No CVA tenderness. Data Data Last Documented VS Vital Signs Date Time Temp Pulse Resp B/P (MAP) Pulse Ox O2 Delivery O2 Flow Rate FiO2 3/26/18 10:41 99.3 116 18 142/69 (93) 100 Room Air Orders Orders Complete Blood Count With Diff (11/20/17 11:20) Comprehensive Metabolic Panel (11/20/17 11:20) Lipase (11/20/17 11:20) Lactic Acid (11/20/17 11:20) Prothrombin Time / Inr (Pt) (11/20/17 11:20) Act Partial Throm Time (Ptt) (11/20/17 11:20) Urinalysis - C+S If Indicated (11/20/17 11:20) Iv Access Insert/Monitor (11/20/17 11:20) Ecg Monitoring (11/20/17 11:20) Oximetry (11/20/17 11:20) Ondansetron Inj (Zofran Inj) (11/20/17 11:30) Sodium Chlor 0.9% 1000 Ml Inj (Ns 1000 M (11/20/17 11:20) Sodium Chloride 0.9% Flush (Ns Flush) (11/20/17 11:30) Electrocardiogram (11/20/17 11:20) Troponin I (11/20/17 11:20) Ckmb (Isoenzyme) Profile (11/20/17 11:20) Alcohol (Ethanol) (11/20/17 11:20) Alcohol Withdrawal Asmt-Ciwa ONCE (11/20/17 11:20) Flumazenil Inj (Romazicon Inj) (11/20/17 11:30) Lorazepam (Ativan) (11/20/17 11:30) Lorazepam Inj (Ativan Inj) (11/20/17 11:30) Lorazepam (Ativan) (11/20/17 11:30) Lorazepam Inj (Ativan Inj) (11/20/17 11:30) Lorazepam Inj (Ativan Inj) (11/20/17 11:30) Lorazepam Inj (Ativan Inj) (11/20/17 11:30) Lorazepam Inj (Ativan Inj) (11/20/17 11:30) Ct Abd/Pel W Iv Contrast(Rout) (11/20/17 12:23) Morphine Inj (Morphine Inj) (11/20/17 12:30) Sodium Chlor 0.9% 1000 Ml Inj (Ns 1000 M (11/20/17 12:30) Iohexol 350 Inj (Omnipaque 350 Inj) (11/20/17 13:00) Admit Order (Ed Use Only) (11/20/17 13:36) Labs Laboratory Tests Test 11/20/17 11:43 White Blood Count 12.7 TH/MM3 Red Blood Count 3.89 MIL/MM3 Hemoglobin 12.8 GM/DL Hematocrit 36.6 % Mean Corpuscular Volume 94.1 FL Mean Corpuscular Hemoglobin 33.0 PG Mean Corpuscular Hemoglobin Concent 35.1 % Red Cell Distribution Width 15.6 % Platelet Count 617 TH/MM3 Mean Platelet Volume 7.4 FL Neutrophils (%) (Auto) 79.1 % Lymphocytes (%) (Auto) 11.0 % Monocytes (%) (Auto) 9.5 % Eosinophils (%) (Auto) 0.0 % Basophils (%) (Auto) 0.4 % Neutrophils # (Auto) 10.0 TH/MM3 Lymphocytes # (Auto) 1.4 TH/MM3 Monocytes # (Auto) 1.2 TH/MM3 Eosinophils # (Auto) 0.0 TH/MM3 Basophils # (Auto) 0.1 TH/MM3 CBC Comment AUTO DIFF Differential Comment AUTO DIFF CONFIRMED Platelet Estimate HIGH Platelet Morphology Comment NORMAL Ovalocytes 1+ Prothrombin Time 12.1 SEC Prothromb Time International Ratio 1.2 RATIO Activated Partial Thromboplast Time 26.5 SEC Blood Urea Nitrogen 14 MG/DL Creatinine 1.22 MG/DL Random Glucose 98 MG/DL Total Protein 8.1 GM/DL Albumin 3.5 GM/DL Calcium Level 9.6 MG/DL Alkaline Phosphatase 103 U/L Aspartate Amino Transf (AST/SGOT) 36 U/L Alanine Aminotransferase (ALT/SGPT) 14 U/L Total Bilirubin 0.7 MG/DL Sodium Level 130 MEQ/L Potassium Level 4.9 MEQ/L Chloride Level 99 MEQ/L Carbon Dioxide Level 15.8 MEQ/L Anion Gap 15 MEQ/L Estimat Glomerular Filtration Rate 44 ML/MIN Lactic Acid Level 3.4 mmol/L Total Creatine Kinase 49 U/L Troponin I LESS THAN 0.02 NG/ML Lipase 3066 U/L Ethyl Alcohol Level LESS THAN 3 MG/DL MDM Medical Decision Making Medical Screen Exam Complete: Yes Emergency Medical Condition: Yes Differential Diagnosis Pancreatitis versus alcohol withdrawal versus metabolic derangement versus less likely ACS versus other Narrative Course 72-year-old female with PMH of chronic alcoholism, pancreatitis presents to the ED for evaluation of chest pain, abdominal pain, nausea, vomiting, watery stools. Onset at 3 AM. Last alcoholic drink was approximately 3 days ago. Temp 99.3, pulse 116, BP 142/69, O2 sats 100% on room air on presentation. On exam this is a tremulous, anxious white female in no acute distress. There is tenderness to palpation in the left upper quadrant with some voluntary guarding. Exam otherwise unremarkable. IV was established. Patient was administered 1 L normal saline, 1 mg Ativan, 4 mg Zofran IV. She was placed on CIWA protocol. EKG rate 106, sinus tachycardia. AR interval 144, QRS 85, QTc 382 ms. Normal axis. No acute ST changes. Reviewed by Dr. Arteaga. Troponin negative 1. CBC: WBC 12.7. Hemoglobin 12.8. INR 1.2. CMP: Sodium 1:30, chloride 99. BUN 14, creatinine 1.22. Lipase 3066. Lactic acid 3.4. Toxicology: Alcohol less than 3. CT abdomen and pelvis with contrast: Pending the pancreas is enlarged and distinct with ill-defined low attenuation areas likely representing fluid. Pancreatic duct remains dilated and there is evidence of chronic pancreatitis as well. Current findings are most consistent with acute pancreatitis. No other acute findings per radiology read. Patient was administered a second liter of normal saline, 4 mg morphine IV. Plan to admit. Patient is agreeable to this plan. I spoke with who agrees to accept the patient to the medicine service. Please see medicine notes for disposition. Sepsis Criteria SIRS Criteria (2 or more): Heart rate over 90, WBC > 00727, < 4000 or > 10% bands Severe Sepsis (+one): Lactate >2 Holly Alexandra Nov 20, 2017 11:45
[2017-11-20 11:54] LABS: BASOPHIL # 0.1 TH/MM3 (0-0.2); BASOPHIL % 0.4 % (0.0-2.0); HEMATOCRIT 36.6 % (35.0-46.0); HEMOGLOBIN 12.8 GM/DL (11.6-15.3); LYMPHOCYTE # 1.4 TH/MM3 (1.0-4.8); MEAN CELL VOLUME 94.1 FL (80.0-100.0); MEAN CORPUSCULAR HGB CONC 35.1 % (32.0-36.0); MEAN PLATELET VOLUME 7.4 FL (7.0-11.0); MONO % 9.5 % (0.0-8.0); MONOCYTE # 1.2 TH/MM3 (0-0.9); NEUT % 79.1 % (16.0-70.0); PLATELET COUNT 617 TH/MM3 (150-450); RED BLOOD COUNT 3.89 MIL/MM3 (4.00-5.30); RED CELL DISTRIBUTION WIDTH 15.6 % (11.6-17.2); WHITE BLOOD COUNT 12.7 TH/MM3 (4.0-11.0)
[2017-11-20 12:06] LABS: ALT (GPT) 14 U/L (10-53)
[2017-11-20 12:12] LABS: ALBUMIN 3.5 GM/DL (3.4-5.0); ALKALINE PHOSPHATASE 103 U/L (45-117); AST (GOT) 36 U/L (15-37); BICARBONATE 15.8 MEQ/L (21.0-32.0); BLOOD UREA NITROGEN 14 MG/DL (7-18); CALCIUM 9.6 MG/DL (8.5-10.1); CHLORIDE 99 MEQ/L (98-107); CREATININE 1.22 MG/DL (0.50-1.00); GLOMERULAR FILTRATION RATE 44 ML/MIN (>89); GLUCOSE,RANDOM 98 MG/DL (74-106); INTERNATIONAL NORMALIZED RATIO 1.2 RATIO; PROTHROMBIN TIME - PATIENT 12.1 SEC (9.8-11.6); SODIUM (NA) 130 MEQ/L (136-145); TOTAL BILIRUBIN ADULT 0.7 MG/DL (0.2-1.0); TOTAL PROTEIN 8.1 GM/DL (6.4-8.2); TROPONIN I LESS THAN 0.02 NG/ML (0.02-0.05)
[2017-11-20] MEDS ORDERED: MORPHINE SULFATE 2 MG/ML INJ IV PUSH ONE (12:30)
[2017-11-20] MEDS ORDERED: SODIUM CHLOR 0.9% 1000 ML INJ 1,000 ML IV ONE (12:30)
[2017-11-20 12:39] LABS: OVALOCYTES 1+ (NORMAL)
[2017-11-20] MEDS ORDERED: IOHEXOL 350 MG/ML 10 ML VIAL (for RAD DIAG) IVCONTRAST ONE (13:00)
--- NOTE | 2017-11-20 13:14 | RADRPT ---
EXAM DATE/TIME: 11/20/2017 12:56 [facility] COMPARISON: CT ABDOMEN & PELVIS W CONTRAST, October 25, 2017, 8:29. INDICATIONS : Abdominal pain IV CONTRAST: 80 cc Omnipaque 350 (iohexol) IV ORAL CONTRAST: No oral contrast ingested. RADIATION DOSE: 5.98 CTDIvol (mGy) MEDICAL HISTORY : Cardiovascular disease. Cerebrovascular disease. Gastroesophageal reflux disea se. Pancreatitis, Hypertension, Breast cancer SURGICAL HISTORY : Hysterectomy. Appendectomy.Cholecystectomy. ENCOUNTER: Initial ACUITY: 1 day PAIN SCALE: 5/10 LOCATION: Bilateral Abdomen TECHNIQUE: Volumetric scanning of the abdomen and pelvis was performed. Using automated exposure control and adjustment of the mA and/or kV according to patient size, radiation dose was kept as low as reasonably achievable to obtain optimal diagnostic quality images. DICOM format image data is av ailable electronically for review and comparison. FINDINGS: LOWER LUNGS: The visualized lower lungs are clear. LIVER: Homogeneous density with multiple benign scattered cystic lesions again noted. There is mi ld hepatic steatosis. There is no dilation of the biliary tree. There is a single small calcified gal lstone again noted with no wall thickening or inflammatory change SPLEEN: Normal size without lesion. Multiple calcified splenic granulomas are again noted. PANCREAS: The head of the pancreas is enlarged compared to the prior study an indistinct with mil d surrounding inflammatory change. The pancreas is difficult to separate from the adjacent bowel. Mul tiple punctate calcifications are again noted. There is diffuse pancreatic ductal dilatation again no tyrese measuring up to 11 mm which does not appear significantly changed. The body and detail remain unc hanged and atrophic. There are indistinct low attenuation areas in the region of the head of the panc reas. The pancreas is poorly delineated from the adjacent small bowel. KIDNEYS: Normal in size and shape. There is no solid mass, stone or hydronephrosis. There are mu ltiple stable appearing small cystic structures noted bilaterally. ADRENAL GLANDS: Within normal limits. VASCULAR: There is no aortic aneurysm. BOWEL/MESENTERY: There is a small hiatal hernia again noted. The stomach, small bowel, and colon demonstrate no acute abnormality. There is no free intraperitoneal air or fluid. ABDOMINAL WALL: Within normal limits. RETROPERITONEUM: There is no lymphadenopathy. BLADDER: No wall thickening or mass. REPRODUCTIVE: Within normal limits. INGUINAL: There is no lymphadenopathy or hernia. MUSCULOSKELETAL: Within normal limits for patient age. CONCLUSION 1. The head of the pancreas is enlarged and indistinct with ill-defined low attenuation areas likely representing fluid. The pancreatic duct remains dilated and there is evidence of chronic pancreatitis as well. The current findings are most consistent with acute pancreatitis. 2. Small calcified gallstone again noted with no gallbladder wall thickening or inflammatory change. 3. Multiple stable hepatic cysts. There is mild hepatic stenosis. 4. Small hiatal hernia. Jose Brand MD on November 20, 2017 at 13:05 Board Certified Radiologist. This report was verified electronically.
[2017-11-20 14:08] VITALS: BP 163/71; PULSE 94; RESP 18; O2SAT 98
--- NOTE | 2017-11-20 14:25 | HHI.HP ---
[facility] Service Family Medicine Primary Care Physician Maxi Branch MD Admission Diagnosis acute pancreatitis Diagnoses: International Travel<30 Days: No Contact w/Intl Traveler<30days: No History of Present Illness 72 y/o F w/multiple hospitalizations for pancreatitis presents with severe abdominal pain, nausea, and vomiting. Patient is poor historian. 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 Abdominal pain started @ 3am. Pain is an aching 8/10 in the upper mid abdomen, comes and goes, getting worse. Vomited x1. Has not eaten very much in the last 3 days. +nausea,dysuria. Fell twice last night after losing balance while drinking - no injury or head trauma. Patient continues to drink alcohol despite multiple admissions for pancreatitis. Does not think she drinks often. No fever , no diarrhea. Uses walker to move around. Was in [facility] for a week for pancreatitis and came home last week. Had 2 episodes of diarrhea since then. PCP is Dr. Branch in [place]. Has not undergone any work-up. Has missed last two appointments w/her doctor. Does not regularly take her medications because of poor appetite. Last drink was last night. Drinks several Garrett Moreau/day. (Tita Aguayo MD R1) Review of Systems Constitutional: COMPLAINS OF: Change in appetite, DENIES: Fever Endocrine: DENIES: Polydipsia, Polyuria Eyes: DENIES: Eye pain, Vision loss Ears, nose, mouth, throat: DENIES: Throat pain, Running Nose Respiratory: DENIES: Cough, Shortness of breath Cardiovascular: DENIES: Chest pain, Lower Extremity Edema Gastrointestinal: DENIES: Bloody stools, Constipation, Difficulty Swallowing Genitourinary: COMPLAINS OF: Dysuria, DENIES: Abnormal vaginal bleeding Musculoskeletal: COMPLAINS OF: Joint pain Integumentary: DENIES: Abnormal pigmentation Hematologic/lymphatic: DENIES: Bruising Immunologic/allergic: DENIES: Eczema Neurologic: DENIES: Headache, Paresthesias, Seizures Psychiatric: DENIES: Hallucinations (Tita Aguayo MD R1) Past Family Social History Past Medical History R Hip fracture Sep L Hip fracture last year breast cancer (left) - 7 years, tx'd at [facility] w/radiation and surgery Hypertension Chronic Pancreatitis Hypothyroidism Depression Past Surgical History Hysterectomy (Tita Aguayo MD R1) Allergies: Coded Allergies: Sulfa (Sulfonamide Antibiotics) (Unverified Allergy, Intermediate, rash, ) Family History Mom: none Dad: not sontributory, none Social History ETOH use: daily, 4-5 drinks Garrett Moreau mixed w/coke No smoking, no recreational or illicit drug use Lives in condo w/caregiver (Tita Aguayo Dylan HOUGH R1) Physical Exam Vital Signs Vital Signs Date Time Temp Pulse Resp B/P (MAP) Pulse Ox O2 Delivery O2 Flow Rate FiO2 11/20/17 10:41 99.3 116 18 142/69 (93) 100 Room Air Physical Exam GENERAL: This is a thin, pleasant elderly lady appearing slightly drowsy, resting comfortably in bed. Hard of hearing SKIN: Cool and dry. HEAD: Atraumatic. Normocephalic. EYES: Extraocular motions intact. No scleral icterus. Mucous membranes moist. ENT: Airway patent. NECK: Trachea midline. CARDIOVASCULAR: Regular rate and rhythm without murmurs, gallops, or rubs. RESPIRATORY: Clear to auscultation. Breath sounds equal bilaterally. No wheezes , rales, or rhonchi. GASTROINTESTINAL: Epigastric tenderness to palpation. Non-distended, +bowel sounds. No palpable mass, No guarding. MUSCULOSKELETAL: Extremities without clubbing, cyanosis, or edema. Left leg calf is tender to palpation, + Alexandria's sign. Patient states she hadn't noticed this pain before. NEUROLOGICAL: Awake and alert. Cranial nerves II through XII intact. Motor and sensory grossly within normal limits. Normal speech. Laboratory Laboratory Tests Test 11/20/17 11:43 White Blood Count 12.7 Red Blood Count 3.89 Hemoglobin 12.8 Hematocrit 36.6 Mean Corpuscular Volume 94.1 Mean Corpuscular Hemoglobin 33.0 Mean Corpuscular Hemoglobin Concent 35.1 Red Cell Distribution Width 15.6 Platelet Count 617 Mean Platelet Volume 7.4 Neutrophils (%) (Auto) 79.1 Lymphocytes (%) (Auto) 11.0 Monocytes (%) (Auto) 9.5 Eosinophils (%) (Auto) 0.0 Basophils (%) (Auto) 0.4 Neutrophils # (Auto) 10.0 Lymphocytes # (Auto) 1.4 Monocytes # (Auto) 1.2 Eosinophils # (Auto) 0.0 Basophils # (Auto) 0.1 CBC Comment AUTO DIFF Differential Comment AUTO DIFF CONFIRMED Platelet Estimate HIGH Platelet Morphology Comment NORMAL Ovalocytes 1+ Prothrombin Time 12.1 Prothromb Time International Ratio 1.2 Activated Partial Thromboplast Time 26.5 Blood Urea Nitrogen 14 Creatinine 1.22 Random Glucose 98 Total Protein 8.1 Albumin 3.5 Calcium Level 9.6 Alkaline Phosphatase 103 Aspartate Amino Transf (AST/SGOT) 36 Alanine Aminotransferase (ALT/SGPT) 14 Total Bilirubin 0.7 Sodium Level 130 Potassium Level 4.9 Chloride Level 99 Carbon Dioxide Level 15.8 Anion Gap 15 Estimat Glomerular Filtration Rate 44 Lactic Acid Level 3.4 Total Creatine Kinase 49 Troponin I LESS THAN 0.02 Lipase 3066 Ethyl Alcohol Level LESS THAN 3 (Tita Aguayo MD R1) Result Diagram: 11/20/17 1143 11/20/[address] abdomen w/IV contrast 1. The head of the pancreas is enlarged and indistinct with ill-defined low attenuation areas likely representing fluid. The pancreatic duct remains dilated and there is evidence of chronic pancreatitis as well. The current findings are most consistent with acute pancreatitis. 2. Small calcified gallstone again noted with no gallbladder wall thickening or inflammatory change. 3. Multiple stable hepatic cysts. There is mild hepatic stenosis. 4. Small hiatal hernia. (Tita Aguayo MD R1) Caprini VTE Risk Assessment Caprini VTE Risk Assessment: Mod/High Risk (score >= 2) Caprini Risk Assessment Model Point Value = 1 Point Value = 2 Point Value = 3 Point Value = 5 Age 41-60 Minor surgery BMI > 25 kg/m2 Swollen legs Varicose veins or History of unexplained or recurrent spontaneous Oral contraceptives or hormone replacement Sepsis (< 1 month) Serious lung disease, including pneumonia (< 1 month) Abnormal pulmonary function Acute myocardial infarction Congestive heart failure (< 1 month) History of inflammatory bowel disease Medical patient at bed rest Age 61-74 Arthroscopic surgery Major open surgery (> 45 min) Laparoscopic surgery (> 45 min) Malignancy Confined to bed (> 72 hours) Immobilizing plaster cast Central venous access Age >= 75 History of VTE Family history of VTE Factor V Leiden Prothrombin [id number] Lupus anticoagulant Anticardiolipin antibodies Elevated serum homocysteine Heparin-induced thrombocytopenia Other congenital or acquired thrombophilia Stroke (< 1 month) Elective arthroplasty Hip, pelvis, or leg fracture Acute spinal cord injury (< 1 month) Prophylaxis Regimen Total Risk Factor Score Risk Level Prophylaxis Regimen 0-1 Low Early ambulation 2 Moderate Order ONE of the following: *Sequential Compression Device (SCD) *Heparin 5000 units SQ BID 3-4 Higher Order ONE of the following medications: *Heparin 5000 units SQ TID *Enoxaparin/Lovenox 40 mg SQ daily (WT < 150 kg, CrCl > 30 mL/min) *Enoxaparin/Lovenox 30 mg SQ daily (WT < 150 kg, CrCl > 10-29 mL/min) *Enoxaparin/Lovenox 30 mg SQ BID (WT < 150 kg, CrCl > 30 mL/min) AND/OR *Sequential Compression Device (SCD) 5 or more Highest Order ONE of the following medications: *Heparin 5000 units SQ TID (Preferred with Epidurals) *Enoxaparin/Lovenox 40 mg SQ daily (WT < 150 kg, CrCl > 30 mL/min) *Enoxaparin/Lovenox 30 mg SQ daily (WT < 150 kg, CrCl > 10-29 mL/min) *Enoxaparin/Lovenox 30 mg SQ BID (WT < 150 kg, CrCl > 30 mL/min) AND *Sequential Compression Device (SCD) (Tita Aguayo MD R1) Assessment and Plan Assessment and Plan Patient is a 72 y/o F w/hx of alcoholism and chronic pancreatitis admitted for acute pancreatitis. Will provide IVF, pain control, and monitoring. Last drink was last night, placed on CIWA protocol. Code Status DNR (Tita Aguayo MD R1) Attending Attestation THIS CASE WAS DISCUSSED WITH THE RESIDENT PHYSICIANS. I HAVE REVIEWED THE RECORD AND AGREE WITH THE ABOVE NOTE AND PLAN OF CARE WAS DISCUSSED. I HAVE AUTHORIZED THE ORDER FOR ADMISSION TO AN IN-PATIENT STATUS. PATIENT SEEN AND EXAMINED AT THE TIME OF HER ADMISSION. HER PAIN HAS NOT IMPROVED YET. SHE HAS H/O SEVERE PANCREATITIS THAT IS RECURRENT, SHE CONTINUES TO DRINK ETOH GEN - AWAKE, ALERT, APPEARS TO BE IN MODERATE PAIN BUT IS NOT IN DISTRESS HEENT -- POOR DENTITION, SCLERA ARE NOT INJECTED AND ANICTERIC, PERRL CARDS -- RRR, PULM -- CLEAR, NO CRACKLES, NO WHEEZING ABD -- S, ND, NO MASSES, SHE IS TENDER IN HER EPIGASTRIC AREA MS -- SHE IS HAVING PAIN OVER THE RIGHT HIP -- TTP ON THE LATERAL ASPECT, UNABLE TO ACTIVELY OR PASSIVELY ROTATE THE HIP SKIN -- NO LESIONS, ECCYMOSIS ON THE ABD -- PT REPORTS WAS DUE TO LOVENOX INJECTIONS FROM PRIOR ADMISSION NEURO -- SHE IS ALERT AND ORIENTED, SPEECH IS NORMAL PANCREATITIS WITH CONTINUED ETOH ABUSE -- IVF, PAIN CONTROL, ADVANCE DIET TO LOW FAT TOLERATED. STRONGLY REC NO ETOH RIGHT HIP PAIN WITH H/O FRACTURE -- CHECK XRAY RESTART HOME MEDS FOR HER OTHER MEDICAL CONDITIONS. (Mita Campos MD) Problem List: (1) Acute recurrent pancreatitis ICD Codes: K85.90 - Acute pancreatitis without necrosis or infection, unspecified Status: Acute Plan: Per CT abdomen Lipase 3066 WBC elevated IVF @ maintenance rate NPO Percocet 5-325 for pain 1-5 Percocet 10-325 pain 6-10 5 mg IV morphine for breakthrough Monitor lipase daily (2) Dehydration ICD Codes: E86.0 - Dehydration Status: Acute Plan: Exam was s/p NS bolus in the ED Sodium 130 (low) Creatinine 1.22 GFR 44 IVF hydration, watch daily CMP (3) Pain of left calf ICD Codes: M79.662 - Pain in left lower leg Status: Acute Plan: Well's score of 1, moderate risk Calf tenderness and + Alexandria's sign Order d-dimer (4) Dysuria ICD Codes: R30.0 - Dysuria Plan: Dysuria Questionable suprapubic tenderness on exam UA pending (5) Atrial fibrillation ICD Codes: I48.91 - Unspecified atrial fibrillation Status: Chronic Plan: Con't Xarelto 10 mg daily (6) Depression ICD Codes: F32.9 - Depression Status: Chronic Plan: Con't home anti-depressant (7) Hypertension, essential ICD Codes: I10 - Essential (primary) hypertension Status: Chronic Plan: Con't losartan, metoprolol Hold amlodipine and tramterene-HCTZ diuretic Poor hx of compliance, recent falls Will monitor vitals and add medications back on as needed (8) Hypothyroid ICD Codes: E03.9 - Hypothyroidism Status: Chronic (9) ETOH abuse ICD Codes: F10.10 - Alcohol abuse Status: Chronic Plan: Last drink was last night CIWA protocol Recent fall while drinking, no injury or head trauma per hx Consult PT and CM (10) History of hip fracture ICD Codes: Z87.81 - Personal history of (healed) traumatic fracture Plan: Con't vitamin D and calcium supplementation (11) FEN Plan: Fluids: IVF maintenance Electrolytes: replete PRN Nutrition: NPO DVT prophy: on Xarelto chronically, resumed (Tita Aguayo MD R1) Physician Certification 2 Midnight Certification Type: Admission for Inpatient Services Order for Inpatient Services The services are ordered in accordance with Medicare regulations or non- Medicare payer requirements, as applicable. In the case of services not specified as inpatient-only, they are appropriately provided as inpatient services in accordance with the 2-midnight benchmark. Estimated LOS (days): 2 2 days is the estimated time the patient will need to remain in the hospital, assuming treatment plan goals are met and no additional complications. Post-Hospital Plan: Not yet determined (Tita Aguayo MD R1) Tita Aguayo MD R1 Nov 20, 2017 14:25 Mita Campos MD Nov 20, 2017 19:20
[2017-11-20] MEDS ORDERED: ONDANSETRON HCL 4 MG/2 ML VIAL IV PUSH PRN (14:45)
[2017-11-20] MEDS ORDERED: DESVENLAFAXINE 100 MG PO SCH (14:45)
[2017-11-20] MEDS ORDERED: MORPHINE SULFATE 8 MG/ML INJ IV PUSH PRN (14:45)
[2017-11-20] MEDS ORDERED: oxyCODONE/ACETAMINOPHEN 5 MG/325 MG TAB PO PRN ×2 (14:45→18:45)
[2017-11-20] MEDS ORDERED: NON-FORMULARY DRUG (Levothyroxine 175 MCG) PO SCH (14:45)
[2017-11-20] MEDS ORDERED: RIVAROXABAN 10 MG TAB PO SCH (14:45)
[2017-11-20] MEDS: amLODIPine BESYLATE 5 MG TAB PO SCH (15:51)
[2017-11-20] MEDS: FOLIC ACID 1 MG TAB PO SCH (15:51)
[2017-11-20] MEDS: PANTOPRAZOLE SOD 40 MG DELAYED RELEASE TAB PO SCH (15:51)
[2017-11-20] MEDS: LOSARTAN 50 MG TAB PO SCH (15:51)
[2017-11-20] MEDS: MULTIVITAMIN TAB PO SCH (15:51)
[2017-11-20] MEDS: SODIUM CHLOR 0.9% 1000 ML INJ 1,000 ML IV SCH (15:52)
[2017-11-20 15:56] LABS: BILIRUBIN, URINE NEG (NEG); BLOOD, URINE NEG (NEG); GLUCOSE,URINE NEG (NEG); KETONE, URINE NEG (NEG); MUCUS URINE FEW /lpf (OCC); NITRITE,URINE NEG (NEG); SQUAMOUS EPITHELIAL CELL URINE 10 /hpf (0-5); URINE COLOR LIGHT-YELLOW (YELLW/STRAW); URINE LEUKOCYTE ESTERASE NEG (NEG)
[2017-11-20] MEDS: LORazepam 1 MG TAB PO PRN (16:25)
[2017-11-20 16:36] VITALS: BP 141/67; PULSE 103; RESP 16; TEMP 98.8; O2SAT 98
[2017-11-20] MEDS: CALCIUM/VITAMIN D 250 MG/125 U TAB PO SCH (18:00)
[2017-11-20] MEDS ORDERED: CREON PO SCH (18:30)
--- NOTE | 2017-11-20 20:43 | RADRPT ---
EXAM DATE/TIME: 11/20/2017 20:09 [facility] COMPARISON: HIP RIGHT (AP&LAT 2/3VWS) W AP PELVIS, October 06, 2017, 11:26. INDICATIONS : Right hip pain. No known injury. MEDICAL HISTORY : Cardiovascular disease. Cerebrovascular disease. Gastroesophageal reflux disease. Hypertension, Breas t cancer. Pancreatitis SURGICAL HISTORY : Hysterectomy. Appendectomy.Cholecystectomy. Bilateral hip replacements. ENCOUNTER: Initial ACUITY: 1 day PAIN SCORE: 5/10 LOCATION: Right hip. FINDINGS: Examination of the right hip was performed with AP Pelvis. There is previous fixation of both proxim al femora. Residual contrast in the bladder. No new bony abnormalities identified. CONCLUSION: 1. Previous fixation of the proximal femora bilaterally. No acute fracture identified. Monico Yanez MD on November 20, 2017 at 20:39 Board Certified Radiologist. This report was verified electronically.
[2017-11-20 21:18] VITALS: BP 133/62; PULSE 86; RESP 17; TEMP 98; O2SAT 97
[2017-11-20] MEDS: SODIUM CHLORIDE 0.9% FLUSH 10 ML FLUSH IV FLUSH SCH (21:31)
[2017-11-20] MEDS: METOPROLOL TARTRATE 50 MG TAB PO SCH (21:31)
[2017-11-20] MEDS: RIVAROXABAN 10 MG TAB PO SCH (21:31)
[2017-11-20] MEDS: oxyCODONE/ACETAMINOPHEN 10 MG/325 MG TAB PO PRN (21:42)
[2017-11-21] VITALS (7 sets, daily range): BP systolic 111–144; BP diastolic 56–67; PULSE 54–90; RESP 12–20; TEMP 97.5–99.2; O2SAT 91–100
--- NOTE | 2017-11-21 00:02 | EKG ---
Date Performed: 11/20/2017 Time Performed: 11:19:19 PTAGE: 72 years EKG: SINUS TACHYCARDIA MODERATE ST DEPRESSION ABNORMAL ECG INTERPRETATION BASED ON A DEFAULT AGE OF 40 YEARS NO PREVIOUS TRACING DOCTOR: Romi Canada Interpretating Date/Time 11/20/2017 23:58:13
[2017-11-21] MEDS: SODIUM CHLOR 0.9% 1000 ML INJ 1,000 ML IV SCH ×3 (01:12→20:28)
[2017-11-21] MEDS: LORazepam 1 MG TAB PO PRN (01:12)
[2017-11-21] MEDS ORDERED: LEVOTHYROXINE SODIUM 75 MCG TAB PO SCH (06:00)
[2017-11-21] MEDS ORDERED: LEVOTHYROXINE SODIUM 100 MCG TAB PO SCH (06:00)
[2017-11-21] MEDS: METOPROLOL TARTRATE 50 MG TAB PO SCH ×2 (07:12→21:00)
[2017-11-21] MEDS: FOLIC ACID 1 MG TAB PO SCH (07:12)
[2017-11-21] MEDS: SODIUM CHLORIDE 0.9% FLUSH 10 ML FLUSH IV FLUSH SCH ×2 (07:12→21:00)
[2017-11-21] MEDS: oxyCODONE/ACETAMINOPHEN 10 MG/325 MG TAB PO PRN ×3 (07:12→22:30)
[2017-11-21] MEDS: LOSARTAN 50 MG TAB PO SCH (07:12)
[2017-11-21] MEDS: amLODIPine BESYLATE 5 MG TAB PO SCH (07:13)
[2017-11-21] MEDS: MULTIVITAMIN TAB PO SCH (07:13)
[2017-11-21] MEDS: CALCIUM/VITAMIN D 250 MG/125 U TAB PO SCH ×3 (07:13→17:52)
[2017-11-21] MEDS: PANTOPRAZOLE SOD 40 MG DELAYED RELEASE TAB PO SCH (07:13)
[2017-11-21 07:25] LABS: AUTOMATED NEUTROPHIL # 6.2 TH/MM3 (1.8-7.7); BASOPHIL # 0.1 TH/MM3 (0-0.2); BASOPHIL % 0.7 % (0.0-2.0); EOSINOPHIL # 0.1 TH/MM3 (0-0.4); HEMATOCRIT 32.2 % (35.0-46.0); LYMPH % 18.2 % (9.0-44.0); LYMPHOCYTE # 1.7 TH/MM3 (1.0-4.8); MEAN CELL VOLUME 95.6 FL (80.0-100.0); MEAN CORPUSCULAR HEMOGLOBIN 32.6 PG (27.0-34.0); MEAN CORPUSCULAR HGB CONC 34.1 % (32.0-36.0); MEAN PLATELET VOLUME 7.5 FL (7.0-11.0); MONO % 12.8 % (0.0-8.0); MONOCYTE # 1.2 TH/MM3 (0-0.9); NEUT % 67.3 % (16.0-70.0); PLATELET COUNT 518 TH/MM3 (150-450); RED BLOOD COUNT 3.36 MIL/MM3 (4.00-5.30); RED CELL DISTRIBUTION WIDTH 16.1 % (11.6-17.2); WHITE BLOOD COUNT 9.2 TH/MM3 (4.0-11.0)
[2017-11-21 07:48] LABS: AST (GOT) 19 U/L (15-37); BICARBONATE 19.8 MEQ/L (21.0-32.0); BLOOD UREA NITROGEN 14 MG/DL (7-18); CALCIUM 8.9 MG/DL (8.5-10.1); CHLORIDE 106 MEQ/L (98-107); CREATININE 0.96 MG/DL (0.50-1.00); GLOMERULAR FILTRATION RATE 57 ML/MIN (>89); GLUCOSE,RANDOM 92 MG/DL (74-106); SODIUM (NA) 136 MEQ/L (136-145)
[2017-11-21 07:58] LABS: ALKALINE PHOSPHATASE 91 U/L (45-117); ALT (GPT) 10 U/L (10-53); TOTAL BILIRUBIN ADULT 0.6 MG/DL (0.2-1.0); TOTAL PROTEIN 6.9 GM/DL (6.4-8.2); TRIGLYCERIDES 99 MG/DL (42-150)
[2017-11-21] MEDS: RIVAROXABAN 10 MG TAB PO SCH (09:06)
--- NOTE | 2017-11-21 10:44 | RADRPT ---
EXAM DATE/TIME: 11/21/2017 10:04 [facility] COMPARISON: No previous studies available for comparison. INDICATIONS : Left leg pain. MEDICAL HISTORY : Hypothyroidism. Hypertension. Gastroesophageal reflux disease. Coronary artery disease. Pancreatit is. Dysuria. Cerebral vascular accident. Inflammatory bowel disease. Arthritis. Breast cancer. SURGICAL HISTORY : Hysterectomy. Mastectomy, left. Cholecystectomy. [place]/ Sinus repair. ENCOUNTER: Initial ACUITY: 1 day PAIN SCORE: 5/10 LOCATION: Left leg. TECHNIQUE: Venous ultrasound of the leg was performed from the inguinal ligament to the proximal calf. Real-lianna e, color Doppler and spectral tracing, compression and augmentation techniques were used. FINDINGS: There is normal compressibility of the deep venous system from the inguinal region to the proximal ca lf. No echogenic clot is seen in the lumen of the common femoral, femoral, popliteal, and posterior tibial veins. There is a normal response of the venous system to proximal and distal augmentation an d respiration. CONCLUSION: Normal examination. Monico Yanez MD on November 21, 2017 at 10:41 Board Certified Radiologist. This report was verified electronically.
--- NOTE | 2017-11-21 11:45 | HHI.FPPN ---
Subjective Remarks Patient is doing well. No acute complaints. No longer has left sided calf pain.No vomiting, abdominal pain has improved. Feels like she can eat. (Tita Aguayo MD R1) Objective Vitals Vital Signs Date Time Temp Pulse Resp B/P (MAP) Pulse Ox O2 Delivery O2 Flow Rate FiO2 11/21/17 11:04 98.2 66 20 119/58 (78) 99 11/21/17 08:20 98.4 54 12 111/56 (74) 91 11/21/17 03:44 97.5 63 17 144/66 (92) 98 11/21/17 00:25 97.9 57 16 144/67 (92) 99 11/21/17 00:00 97 11/20/17 23:00 18 11/20/17 21:18 98.0 86 17 133/62 (85) 97 11/20/17 16:36 98.8 103 16 141/67 (91) 98 11/20/17 15:39 11/20/17 14:08 94 18 163/71 (101) 98 Room Air I/O 11/20/17 11/20/17 11/20/17 11/21/17 11/21/17 11/21/17 07:00 15:00 23:00 07:00 15:00 23:00 Intake Total 600 ml Output Total 1200 ml Balance 600 ml -1200 ml Intake Oral 450 ml IV Total 150 ml Output Urine Total 1200 ml (Tita Aguayo MD R1) Result Diagram: 11/21/17 0600 11/21/17 0620 Objective Remarks GENERAL: This is a thin, pleasant elderly lady resting comfortably in bed. Hard of hearing SKIN: Cool and dry. HEAD: Atraumatic. Normocephalic. EYES: Extraocular motions intact. No scleral icterus. Mucous membranes moist. ENT: Airway patent. NECK: Trachea midline. CARDIOVASCULAR: Regular rate and rhythm without murmurs, gallops, or rubs. RESPIRATORY: Clear to auscultation. Breath sounds equal bilaterally. No wheezes , rales, or rhonchi. GASTROINTESTINAL: Nontender, non-distended, +bowel sounds. No palpable mass, No guarding. MUSCULOSKELETAL: Extremities without clubbing, cyanosis, or edema. Left leg calf non tender to palpation. NEUROLOGICAL: Awake and alert. No focal deficits. Motor and sensory grossly within normal limits. Normal speech. (Tita Aguayo MD R1) A/P Assessment and Plan Patient is a 72 y/o F w/hx of alcoholism and chronic pancreatitis admitted for acute pancreatitis. Receiving IVF, pain control, and monitoring. On [facility] protocol. Because patient does not follow-up w/her PCP regularly (last visit was about a year ago) or regularly comply w/medication use, we contacted her pharmacy. She does not seem to be regularly taking an anti-depressant. Will keep this in mind as we manage her medications. Will decrease levothyroxine dose for now; hold amlodipine, diuretic, anti-depressant, and creon. Her blood pressures are running low end of normal this hospital stay, likely does not need a total of 4 blood pressure medications. Discharge Planning Pending medication adjustment and further clinical improvement Consulted PT and CM (Tita Aguayo MD R1) Attending Attestation Patient seen and examined with the resident team. Case reviewed and discussed with the resident team. Agree with plan of care as discussed with me and documented in the resident note. (Mita Campos MD) Problem List: (1) Acute recurrent pancreatitis ICD Codes: K85.90 - Acute pancreatitis without necrosis or infection, unspecified Status: Acute Plan: Acute on chronic pancreatitis seen on CT Lipase 3066 on admission, downtrending WBC elevated on admission, downtrending Improvement in symptoms Advance diet Con't IVF @ maintenance rate Percocet 5-325 for pain 1-5 Percocet 10-325 pain 6-10 5 mg IV morphine for breakthrough Monitor lipase daily (2) Dehydration ICD Codes: E86.0 - Dehydration Status: Resolved Plan: Improved today. Will con't IV hydration for one more day as lipase, WBC count, and clinical sx continue to improve Daily CMP (3) Pain of left calf ICD Codes: M79.662 - Pain in left lower leg Status: Resolved Plan: Calf tenderness and + Alexandria's sign on admission Well's score of 1, moderate risk D-dimer slightly elevated, LE doppler negative No concern for DVT at this time (4) Dysuria ICD Codes: R30.0 - Dysuria Status: Resolved Plan: Dysuria Questionable suprapubic tenderness on exam on admission Resolved UA - no evidence for infection (5) Atrial fibrillation ICD Codes: I48.91 - Unspecified atrial fibrillation Status: Chronic Plan: Xarelto 10 mg daily (6) Depression ICD Codes: F32.9 - Depression Status: Chronic Plan: DC anti-depressant since patient is not taking regularly Will continue to monitor (7) Hypertension, essential ICD Codes: I10 - Essential (primary) hypertension Status: Chronic Plan: Con't losartan, metoprolol Hold amlodipine and tramterene-HCTZ diuretic (8) Hypothyroid ICD Codes: E03.9 - Hypothyroidism Status: Chronic Plan: Levothyroxine 75 mcg daily (decreased from reported dose of 175) Decreased to decrease likelihood of possible progression to thyrotoxicosis; patient may not be regularly taking medication and has not regularly seen her PCP, so for now, will avoid very high doses (9) ETOH abuse ICD Codes: F10.10 - Alcohol abuse Status: Chronic Plan: Last drink was last night CIWA protocol: scores 5-8 since this AM (10) History of hip fracture ICD Codes: Z87.81 - Personal history of (healed) traumatic fracture Plan: Con't vitamin D and calcium supplementation (11) FEN Plan: Fluids: IVF maintenance Electrolytes: replete PRN Nutrition: reg diet DVT prophy: on Xarelto chronically, resumed (Tita Aguayo MD R1) Tita Aguayo MD R1 Nov 21, 2017 11:45 Mita Campos MD Nov 22, 2017 16:24
[2017-11-22 04:00] VITALS: BP 148/67; PULSE 71; RESP 18; TEMP 98; O2SAT 98
[2017-11-22 08:00] VITALS: BP 126/62; PULSE 65; RESP 17; TEMP 97.9; O2SAT 95
[2017-11-22] MEDS: oxyCODONE/ACETAMINOPHEN 10 MG/325 MG TAB PO PRN ×2 (08:12→15:07)
[2017-11-22] MEDS: MULTIVITAMIN TAB PO SCH (08:12)
[2017-11-22] MEDS: METOPROLOL TARTRATE 50 MG TAB PO SCH (08:12)
[2017-11-22] MEDS: LOSARTAN 50 MG TAB PO SCH (08:12)
[2017-11-22] MEDS: CALCIUM/VITAMIN D 250 MG/125 U TAB PO SCH ×2 (08:12→14:00)
[2017-11-22] MEDS: PANTOPRAZOLE SOD 40 MG DELAYED RELEASE TAB PO SCH (08:12)
[2017-11-22] MEDS: FOLIC ACID 1 MG TAB PO SCH (08:12)
[2017-11-22] MEDS: SODIUM CHLORIDE 0.9% FLUSH 10 ML FLUSH IV FLUSH SCH (08:15)
[2017-11-22 10:23] LABS: HEMATOCRIT 29.2 % (35.0-46.0); HEMOGLOBIN 10.1 GM/DL (11.6-15.3); MEAN CELL VOLUME 95.4 FL (80.0-100.0); MEAN CORPUSCULAR HEMOGLOBIN 33.1 PG (27.0-34.0); MEAN CORPUSCULAR HGB CONC 34.7 % (32.0-36.0); MEAN PLATELET VOLUME 7.7 FL (7.0-11.0); PLATELET COUNT 424 TH/MM3 (150-450); RED BLOOD COUNT 3.06 MIL/MM3 (4.00-5.30); RED CELL DISTRIBUTION WIDTH 15.4 % (11.6-17.2); WHITE BLOOD COUNT 8.4 TH/MM3 (4.0-11.0)
--- NOTE | 2017-11-22 10:28 | HHI.FPPN ---
Subjective Remarks Patient feels better today, is more tremulous, agitated/frustrated today - however, is consolable. Is hard of hearing. Vitals were stable overnight. (Tita Aguayo MD R1) Objective Vitals Vital Signs Date Time Temp Pulse Resp B/P (MAP) Pulse Ox O2 Delivery O2 Flow Rate FiO2 11/22/17 08:00 97.9 65 17 126/62 (83) 95 11/22/17 04:00 98.0 71 18 148/67 (94) 98 11/21/17 20:00 99.2 90 18 143/67 (92) 100 11/21/17 15:21 98.4 77 20 127/64 (85) 99 11/21/17 11:04 98.2 66 20 119/58 (78) 99 I/O 11/21/17 11/21/17 11/21/17 11/22/17 11/22/17 11/22/17 07:00 15:00 23:00 07:00 15:00 23:00 Intake Total 1000 ml 220 ml Output Total 1200 ml 540 ml Balance -200 ml -320 ml Intake Oral 220 ml IV Total 1000 ml Output Urine Total 1200 ml 540 ml # Bowel Movements 0 (Tita Aguayo MD R1) Result Diagram: 11/21/17 0600 11/21/17 0620 Objective Remarks GENERAL: This is a thin, pleasant elderly lady resting comfortably in bed. Hard of hearing SKIN: Cool and dry. HEAD: Atraumatic. Normocephalic. EYES: Extraocular motions intact. No scleral icterus. Mucous membranes moist. ENT: Airway patent. NECK: Trachea midline. CARDIOVASCULAR: Regular rate and rhythm without murmurs, gallops, or rubs. RESPIRATORY: Clear to auscultation. Breath sounds equal bilaterally. No wheezes , rales, or rhonchi. GASTROINTESTINAL: Nontender, non-distended. No palpable mass, No guarding. MUSCULOSKELETAL: Extremities without clubbing, cyanosis, or edema. Left leg calf non tender to palpation. NEUROLOGICAL: Awake and alert. No focal deficits. Motor and sensory grossly within normal limits. Normal speech. (Tita Aguayo MD R1) A/P Assessment and Plan Patient is a 72 y/o F w/hx of alcoholism and chronic pancreatitis admitted for acute pancreatitis. Receiving IVF, pain control, and monitoring. On CIWA protocol. Discharge Planning D/C today. Patient refuses rehab, plan for home w/home health today. Will allow CM to further discuss w/patient (Tita Aguayo MD R1) Attending Attestation Patient seen and examined. Case reviewed and discussed with the resident team. Agree with plan of care as discussed with me and documented in the resident note. Her lipase did trend up a little but she was eating all sorts of things for the past few meals, including landin and eggs. No pain, no nausea, no vomiting. DC to home. Patient refuses rehab - has two caregivers at home. (Mita Campos MD) Problem List: (1) Acute recurrent pancreatitis ICD Codes: K85.90 - Acute pancreatitis without necrosis or infection, unspecified Status: Acute Plan: Per CT abdomen, patient has acute-on chronic pancreatitis Lipase 3066 on admission WBC elevated on admission, downtrending Improvement Advance diet Fluids discontinued Percocet 5-325 for pain 1-5 Percocet 10-325 pain 6-10 5 mg IV morphine for breakthrough Check lipase this AM (2) Impaired cognition ICD Codes: R41.89 - Other symptoms and signs involving cognitive functions and awareness Plan: Patient has hearing difficulty, issues w/medication compliance and/ losing medication Difficulty w/situation awareness and comprehension observed 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 Has caretakers PT recommends SNF, patient refuses Encourage home w/home health on DC (3) Atrial fibrillation ICD Codes: I48.91 - Unspecified atrial fibrillation Status: Chronic Plan: Xarelto 10 mg daily (4) Depression ICD Codes: F32.9 - Depression Status: Chronic Plan: DC anti-depressant since patient is not taking regularly Will continue to monitor (5) Hypertension, essential ICD Codes: I10 - Essential (primary) hypertension Status: Chronic Plan: Con't losartan, metoprolol Hold amlodipine and tramterene-HCTZ diuretic (6) Hypothyroid ICD Codes: E03.9 - Hypothyroidism Status: Chronic Plan: Levothyroxine 75 mcg daily (7) Chronic pancreatitis ICD Codes: K86.1 - Other chronic pancreatitis Plan: Patient may continue Creon after DC Follow-up w/PCP and/GI after DC (8) ETOH abuse ICD Codes: F10.10 - Alcohol abuse Status: Chronic Plan: Last drink was night before admission CIWA protocol: scores 5 overnight Slight tremulousness and agitation today likely 2/2 to impending withdrawal (9) History of hip fracture ICD Codes: Z87.81 - Personal history of (healed) traumatic fracture Plan: Con't vitamin D and calcium supplementation (10) FEN Plan: Fluids: PO Electrolytes: replete PRN Nutrition: reg diet DVT prophy: on Xarelto chronically, resumed (Tiat Aguayo MD R1) Problem Qualifiers (1) Chronic pancreatitis: Qualified Codes: K86.0 - Alcohol-induced chronic pancreatitis Tita Aguayo MD R1 Nov 22, 2017 10:28 Mita Campos MD Nov 22, 2017 16:38
--- NOTE | 2017-11-22 10:29 | HHI.DS ---
Discharge Summary Admission Date Nov 20, 2017 at 13:37 Admitting Diagnosis acute pancreatitis (1) Acute recurrent pancreatitis Plan: Per CT abdomen Lipase 3066, downtrending WBC elevated on admission, downtrending Improvement Advance diet Fluids discontinued Percocet 5-325 for pain 1-5 Percocet 10-325 pain 6-10 5 mg IV morphine for breakthrough Check lipase this AM ICD Codes: K85.90 - Acute pancreatitis without necrosis or infection, unspecified Status: Acute (2) Dehydration Plan: Exam was s/p NS bolus in the ED Improved DC fluids ICD Codes: E86.0 - Dehydration Status: Resolved (3) Atrial fibrillation Plan: Xarelto 10 mg daily ICD Codes: I48.91 - Unspecified atrial fibrillation Status: Chronic (4) Depression Plan: DC anti-depressant since patient is not taking regularly Will continue to monitor ICD Codes: F32.9 - Depression Status: Chronic (5) Hypertension, essential Plan: Con't losartan, metoprolol Hold amlodipine and tramterene-HCTZ diuretic ICD Codes: I10 - Essential (primary) hypertension Status: Chronic (6) Hypothyroid Plan: Levothyroxine 75 mcg daily ICD Codes: E03.9 - Hypothyroidism Status: Chronic (7) ETOH abuse Plan: Last drink was last night CIWA protocol: scores 5 overnight Slight tremulousness and agitation today likely 2/2 to impending withdrawal ICD Codes: F10.10 - Alcohol abuse Status: Chronic (8) History of hip fracture Plan: Con't vitamin D and calcium supplementation ICD Codes: Z87.81 - Personal history of (healed) traumatic fracture (9) FEN Plan: Fluids: PO Electrolytes: replete PRN Nutrition: reg diet DVT prophy: on Xarelto chronically, resumed Brief History 72 y/o F w/multiple hospitalizations for pancreatitis presents with severe abdominal pain, nausea, and vomiting. Patient is poor historian. Her consignee is at bedside. Abdominal pain started @ 3am. Pain is an aching 8/10 in the upper mid abdomen, comes and goes, getting worse. Vomited x1. Has not eaten very much in the last 3 days. +nausea,dysuria. Fell twice last night after losing balance while drinking - no injury or head trauma. Patient continues to drink alcohol despite multiple admissions for pancreatitis. Does not think she drinks often. No fever , no diarrhea. Uses walker to move around. Was in [facility] for a week for pancreatitis and came home last week. Had 2 episodes of diarrhea since then. PCP is Dr. Branch in [place]. Has not undergone any work-up. Has missed last two appointments w/her doctor. Does not regularly take her medications because of poor appetite. Last drink was last night. Drinks several Garrett Moreau/day. CBC/BMP: 11/21/17 0600 11/21/17 0620 Significant Findings Laboratory Tests Test 11/20/17 11:43 11/20/17 15:02 11/20/17 19:56 11/21/17 06:00 White Blood Count 12.7 TH/MM3 (4.0-11.0) Red Blood Count 3.89 MIL/MM3 (4.00-5.30) 3.36 MIL/MM3 (4.00-5.30) Platelet Count 617 TH/MM3 (150-450) 518 TH/MM3 (150-450) Neutrophils (%) (Auto) 79.1 % (16.0-70.0) Monocytes (%) (Auto) 9.5 % (0.0-8.0) 12.8 % (0.0-8.0) Neutrophils # (Auto) 10.0 TH/MM3 (1.8-7.7) Monocytes # (Auto) 1.2 TH/MM3 (0-0.9) 1.2 TH/MM3 (0-0.9) Platelet Estimate HIGH (NORMAL) Ovalocytes 1+ (NORMAL) Prothrombin Time 12.1 SEC (9.8-11.6) Creatinine 1.22 MG/DL (0.50-1.00) Sodium Level 130 MEQ/L (136-145) Carbon Dioxide Level 15.8 MEQ/L (21.0-32.0) Estimat Glomerular Filtration Rate 44 ML/MIN (>89) Lactic Acid Level 3.4 mmol/L (0.4-2.0) Troponin I LESS THAN 0.02 NG/ML Lipase 3066 U/L (73-393) Urine Turbidity HAZY (CLEAR) Urine Mucus FEW /lpf (OCC) Hemoglobin 11.0 GM/DL (11.6-15.3) Hematocrit 32.2 % (35.0-46.0) D-Dimer Quantitative (PE/DVT) 2.10 MG/L FEU (0.00-0.50) Test 11/21/17 06:20 11/22/17 09:25 Albumin 3.0 GM/DL (3.4-5.0) Carbon Dioxide Level 19.8 MEQ/L (21.0-32.0) Estimat Glomerular Filtration Rate 57 ML/MIN (>89) Lipase 2262 U/L (73-393) Red Blood Count 3.06 MIL/MM3 (4.00-5.30) Hemoglobin 10.1 GM/DL (11.6-15.3) Hematocrit 29.2 % (35.0-46.0) PE at Discharge GENERAL: This is a thin, pleasant elderly lady resting comfortably in bed. Hard of hearing SKIN: Cool and dry. HEAD: Atraumatic. Normocephalic. EYES: Extraocular motions intact. No scleral icterus. Mucous membranes moist. ENT: Airway patent. NECK: Trachea midline. CARDIOVASCULAR: Regular rate and rhythm without murmurs, gallops, or rubs. RESPIRATORY: Clear to auscultation. Breath sounds equal bilaterally. No wheezes , rales, or rhonchi. GASTROINTESTINAL: Nontender, non-distended. No palpable mass, No guarding. MUSCULOSKELETAL: Extremities without clubbing, cyanosis, or edema. Left leg calf non tender to palpation. NEUROLOGICAL: Awake and alert. No focal deficits. Motor and sensory grossly within normal limits. Normal speech. Tita Aguayo MD R1 Nov 22, 2017 10:29
[2017-11-22] MEDS ORDERED: LEVO.075 PO (10:33)
--- NOTE | 2017-11-22 10:39 | HHI.FF ---
Face to Face Verification Diagnosis: (1) Acute recurrent pancreatitis Physical Therapy Order: Evaluate and Treat, Strength and gait training Home Health Nursing Order: Medical education Nursing assessment with vital signs I have seen patient Sita Harvey on 11/22/17. My clinical findings support the need for the requested home health care services because: Med compliance is questionable Impaired cognition/judgement I certify that my clinical findings support that this patient is homebound because: Impaired cognitive ability/safety Tita Aguayo MD R1 Nov 22, 2017 10:39
[2017-11-22 11:14] LABS: BICARBONATE 21.3 MEQ/L (21.0-32.0); BLOOD UREA NITROGEN 10 MG/DL (7-18); CALCIUM 8.7 MG/DL (8.5-10.1); CHLORIDE 104 MEQ/L (98-107); CREATININE 0.71 MG/DL (0.50-1.00); GLUCOSE,RANDOM 98 MG/DL (74-106); SODIUM (NA) 135 MEQ/L (136-145)
[2017-11-22 12:00] VITALS: BP 144/70; PULSE 63; RESP 17; TEMP 97.2; O2SAT 98
[2017-11-22] MEDS: RIVAROXABAN 10 MG TAB PO SCH (14:00)
[2017-11-22 16:00] VITALS: BP 150/73; PULSE 71; RESP 17; TEMP 98.7; O2SAT 97
== END 2017-11-22 15:46 | disposition home health service (06) | DRG 439 ==
LOC: NEPE 09:29 → NEDA 13:37 → NEPGCP 15:51 → HOCA 11-21 18:30
PROVIDERS: ADMIT Family Medicine; ATTEND Family Medicine
DX: K85.90 Acute pancreatitis without necrosis or infection, unspecified (principal); F10.239 Alcohol dependence with withdrawal, unspecified; I48.91 Unspecified atrial fibrillation; E86.0 Dehydration; I10 Essential (primary) hypertension; F32.9 Major depressive disorder, single episode, unspecified; Z66 Do not resuscitate; E03.9 Hypothyroidism, unspecified; K21.9 Gastro-esophageal reflux disease without esophagitis; M79.662 Pain in left lower leg; H91.90 Unspecified hearing loss, unspecified ear; Z79.01 Long term (current) use of anticoagulants; I25.10 Atherosclerotic heart disease of native coronary artery without angina pectoris; K86.0 Alcohol-induced chronic pancreatitis; R30.0 Dysuria; F41.9 Anxiety disorder, unspecified; R29.6 Repeated falls; Z85.3 Personal history of malignant neoplasm of breast; Z86.73 Personal history of transient ischemic attack (TIA), and cerebral infarction without residual deficits; Z87.11 Personal history of peptic ulcer disease; Z79.899 Other long term (current) drug therapy
CPT/HCPCS: 73502; 74177; 80048; 80053; 80307; 81001; 82550; 83605; 83690; 84443; 84478; 84484; 85025; 85027; 85379; 85610; 85730; 93005; 93971; 96361; 96374; 96375; J2060; J2270; J2405; J7030; Q9967

== ENCOUNTER 2017-11-30 01:32 | Inpatient (IN) | payer MEDICARE, BC ==
[~2017-11-30] VITALS: Ht 167.6 cm; Wt 62.1 kg
[2017-11-30] VITALS (10 sets, daily range): BP systolic 122–154; BP diastolic 63–78; PULSE 83–114; RESP 16–20; TEMP 98.1–99; O2SAT 95–99
[~2017-11-30 01:32] MED LIST changes: -ALPR1TAB3 PO; -AMLO5TAB2 PO; +LEVO.075 PO; -LEVO175T2 PO; -MAXZ PO; -NITR100C4 PO; -PRIS100T PO
[2017-11-30] MEDS ORDERED: SODIUM CHLOR 0.9% 1000 ML INJ 1,000 ML IV SCH (02:59)
[2017-11-30 03:00] LABS: BASOPHIL # 0.1 TH/MM3 (0-0.2); BASOPHIL % 0.8 % (0.0-2.0); EOSINOPHIL % 0.6 % (0.0-4.0); HEMATOCRIT 35.1 % (35.0-46.0); HEMOGLOBIN 11.6 GM/DL (11.6-15.3); LYMPH % 24.4 % (9.0-44.0); LYMPHOCYTE # 1.6 TH/MM3 (1.0-4.8); MEAN CELL VOLUME 93.5 FL (80.0-100.0); MEAN CORPUSCULAR HEMOGLOBIN 30.8 PG (27.0-34.0); MEAN CORPUSCULAR HGB CONC 32.9 % (32.0-36.0); MEAN PLATELET VOLUME 7.7 FL (7.0-11.0); MONO % 15.1 % (0.0-8.0); NEUT % 59.1 % (16.0-70.0); PLATELET COUNT 400 TH/MM3 (150-450); RED BLOOD COUNT 3.76 MIL/MM3 (4.00-5.30); RED CELL DISTRIBUTION WIDTH 14.6 % (11.6-17.2); WHITE BLOOD COUNT 6.7 TH/MM3 (4.0-11.0)
[2017-11-30] MEDS ORDERED: MORPHINE SULFATE 4 MG/ML INJ IV PUSH ONE ×2 (03:00→04:30)
[2017-11-30] MEDS ORDERED: ONDANSETRON HCL 4 MG/2 ML VIAL IVP ONE ×2 (03:00→04:30)
[2017-11-30] MEDS ORDERED: SODIUM CHLORIDE 0.9% FLUSH 10 ML FLUSH IV FLUSH PRN ×2 (03:00→04:45)
--- NOTE | 2017-11-30 03:05 | PD ---
HPI Chief Complaint: Abdominal Pain Time Seen by Provider: 02:55 Travel History International Travel<30 days: No Contact w/Intl Traveler<30days: No Traveled to known affect area: No History of Present Illness HPI The patient is a 72-year-old female with a history of alcoholic pancreatitis who states she drank only a glass of wine today but in the last 2 hours has had her typical bilateral upper quadrant pain with nausea consistent with her previous episodes of pancreatitis. She denies any fever. She denies vomiting any blood. She denies any melanotic or bloody stools. She complains of pain of 10/10 and she states the pain feels like a crushing feeling. She does not smoke. PFSH Past Medical History Hx Anticoagulant Therapy: Yes Arthritis: Yes Asthma: No Autoimmune Disease: Yes (RA) Blood Disorders: No Anxiety: Yes Depression: Yes Heart Rhythm Problems: No Cancer: Yes (LEFT BREAST CA) Cardiovascular Problems: Yes High Cholesterol: No Chemotherapy: No Chest Pain: No Congestive Heart Failure: No COPD: No Cerebrovascular Accident: Yes (2016) Coronary Artery Disease: Yes Diabetes: No Diminished Hearing: Yes Endocrine: Yes (CHRONIC PANCREATITIS) Gastrointestinal Disorders: Yes (GASTRIC ULCERS) GERD: Yes Genitourinary: No Headaches: Yes Hiatal Hernia: No Heparin Induced Thrombocytopen: No Hypertension: Yes Immune Disorder: Yes Implanted Vascular Access Dvce: No Kidney Stones: No Medical other: Yes (FLUID RETENTION-ACID REFLUX) Musculoskeletal: Yes Neurologic: Yes Psychiatric: Yes Reproductive: No Respiratory: No Immunizations Current: Yes Migraines: Yes Pancreatitis: Yes Radiation Therapy: Yes Renal Failure: No Seizures: Yes (history of one) Sickle Cell Disease: No Sleep Apnea: No Thyroid Disease: Yes (HYPOTHYROID) Ulcer: Yes Tetanus Vaccination: < 5 Years Influenza Vaccination: Yes ?: Not Menopausal: Yes : 2 Para: 1 Miscarriage: 1 Past Surgical History Abdominal Surgery: Yes (HYSTERECTOMY) AICD: No Appendectomy: Yes Arteriovenous Shunt: No Body Medical Devices: L hip hardware in place , PT IS NOT SURE Cardiac Surgery: No Cholecystectomy: Yes Ear Surgery: No Endocrine Surgery: No Eye Surgery: No Genitourinary Surgery: No Gynecologic Surgery: Yes (TOTAL HYSTERECTOMY) Hysterectomy: Yes Insulin Pump: No Joint Replacement: No Neurologic Surgery: No Oral Surgery: No Pacemaker: No Thoracic Surgery: No Other Surgery: Yes (COLDWELL/SINUS REPAIR, LEFT LUMPECTOMY) Social History Alcohol Use: Yes (DAILY LIQUOR/WINE USE) Tobacco Use: No Substance Use: No Allergies-Medications (Allergen,Severity, Reaction): Coded Allergies: Sulfa (Sulfonamide Antibiotics) (Unverified Allergy, Intermediate, rash, ) Reported Meds & Prescriptions Reported Meds & Active Scripts Active Synthroid (Levothyroxine Sodium) 75 Mcg Tab 75 Mcg PO DAILY@0600 Folic Acid 1 Mg Tablet 1 Mg PO DAILY Oyster Shell 250 mg + Vit D Tb (Calcium/Vitamin D) 250 Mg Calcium (625 Mg)-125 Unit Tablet 250 Mg PO TID Percocet (Oxycodone-Acetaminophen) 5-325 mg Tab 1 Tab PO Q6H PRN Lopressor (Metoprolol Tartrate) 50 Mg Tab 50 Mg PO Q12HR Xarelto (Rivaroxaban) 10 Mg Tab 10 Mg PO DAILY Vitamin B-1 (Thiamine HCl) 100 Mg Tab 100 Mg PO DAILY 30 Days Creon (Pancrelipase) 3,000-9,500-15,000 Units Cap 1 Cap PO TIDPC Losartan (Losartan Potassium) 100 Mg Tab 100 Mg PO DAILY Thera/Beta-Carotene (Multiple Vitamin) 1 Tab Tab 1 Tab PO DAILY Nexium (Esomeprazole DR) 40 Mg Capdr 40 Mg PO DAILY Review of Systems Except as stated in HPI: all other systems reviewed are Neg Physical Exam Narrative GENERAL: The patient is alert, oriented 3 in moderate to severe distress with her bilateral upper quadrant discomfort. Her vital signs are normal. SKIN: Focused skin assessment warm/dry. HEAD: Atraumatic. Normocephalic. EYES: Pupils equal and round. No scleral icterus. No injection or drainage. ENT: No nasal bleeding or discharge. Mucous membranes pink and moist. NECK: Trachea midline. No JVD. CARDIOVASCULAR: Regular rate and rhythm. No murmur appreciated. RESPIRATORY: No accessory muscle use. Clear to auscultation. Breath sounds equal bilaterally. GASTROINTESTINAL: Abdomen soft, with exquisite tenderness to direct palpation in the bilateral upper quadrants. No guarding or rebound is present and the abdomen is nondistended. Hepatic and splenic margins not palpable. MUSCULOSKELETAL: No obvious deformities. No clubbing. No cyanosis. No edema. NEUROLOGICAL: Awake and alert. No obvious cranial nerve deficits. Motor grossly within normal limits. Normal speech. PSYCHIATRIC: Appropriate mood and affect; insight and judgment normal. Data Data Last Documented VS Vital Signs Date Time Temp Pulse Resp B/P (MAP) Pulse Ox O2 Delivery O2 Flow Rate FiO2 11/30/17 04:07 18 99 Room Air 11/30/17 02:26 95 11/30/17 01:44 98.7 Orders Orders Complete Blood Count With Diff (11/30/17 02:44) Comprehensive Metabolic Panel (11/30/17 02:44) Urinalysis - C+S If Indicated (11/30/17 02:44) Iv Access Insert/Monitor (11/30/17 02:44) Oximetry (11/30/17 02:44) Lipase (11/30/17 02:44) Ecg Monitoring (11/30/17 02:59) Sodium Chloride 0.9% Flush (Ns Flush) (11/30/17 03:00) Morphine Inj (Morphine Inj) (11/30/17 03:00) Ondansetron Inj (Zofran Inj) (11/30/17 03:00) Sodium Chlor 0.9% 1000 Ml Inj (Ns 1000 M (11/30/17 02:59) Alcohol (Ethanol) (11/30/17 02:47) Ct Abd/Pel W/O Iv Contrast (11/30/17 04:02) Morphine Inj (Morphine Inj) (11/30/17 04:30) Ondansetron Inj (Zofran Inj) (11/30/17 04:30) Labs Laboratory Tests Test 11/30/17 02:47 White Blood Count 6.7 TH/MM3 Red Blood Count 3.76 MIL/MM3 Hemoglobin 11.6 GM/DL Hematocrit 35.1 % Mean Corpuscular Volume 93.5 FL Mean Corpuscular Hemoglobin 30.8 PG Mean Corpuscular Hemoglobin Concent 32.9 % Red Cell Distribution Width 14.6 % Platelet Count 400 TH/MM3 Mean Platelet Volume 7.7 FL Neutrophils (%) (Auto) 59.1 % Lymphocytes (%) (Auto) 24.4 % Monocytes (%) (Auto) 15.1 % Eosinophils (%) (Auto) 0.6 % Basophils (%) (Auto) 0.8 % Neutrophils # (Auto) 4.0 TH/MM3 Lymphocytes # (Auto) 1.6 TH/MM3 Monocytes # (Auto) 1.0 TH/MM3 Eosinophils # (Auto) 0.0 TH/MM3 Basophils # (Auto) 0.1 TH/MM3 CBC Comment DIFF FINAL Differential Comment Blood Urea Nitrogen 18 MG/DL Creatinine 1.49 MG/DL Random Glucose 94 MG/DL Total Protein 6.7 GM/DL Albumin 2.8 GM/DL Calcium Level 8.1 MG/DL Alkaline Phosphatase 110 U/L Aspartate Amino Transf (AST/SGOT) 154 U/L Alanine Aminotransferase (ALT/SGPT) 49 U/L Total Bilirubin 0.3 MG/DL Sodium Level 126 MEQ/L Potassium Level 4.1 MEQ/L Chloride Level 94 MEQ/L Carbon Dioxide Level 16.8 MEQ/L Anion Gap 15 MEQ/L Estimat Glomerular Filtration Rate 35 ML/MIN Lipase 76819 U/L Ethyl Alcohol Level 40 MG/DL [facility] Medical Decision Making Medical Screen Exam Complete: Yes Emergency Medical Condition: Yes Medical Record Reviewed: Yes Interpretation(s) The CBC is normal. The complete metabolic profile shows a sodium of 126, creatinine 1.5, GFR 35, albumin 2.8, calcium 8.1, G OT of 154 with bicarb 16.8. The alcohol is 40. The lipase is 13,447. Differential Diagnosis Pancreatitis, colitis, ulcer pain, alcohol gastritis, alcohol intoxication- unlikely, electrolyte disorder, renal insufficiency Narrative Course The patient has pancreatitis. She also has a hyponatremia and renal insufficiency. The renal insufficiency has been present before and is chronic. She has acute pancreatitis which is recurrent. I discussed the patient with Dr. Springer, the patient will be admitted to her. Physician Communication Physician Communication I discussed the patient with Dr. Springer, the patient will be admitted to her. Diagnosis Primary Impression: Acute recurrent pancreatitis Additional Impressions: Hyponatremia Renal insufficiency Admitting Information Admitting Physician Requests: Admit Juan Araujo MD Nov 30, 2017 03:05
[2017-11-30 03:49] LABS: ALBUMIN 2.8 GM/DL (3.4-5.0); AST (GOT) 154 U/L (15-37); BICARBONATE 16.8 MEQ/L (21.0-32.0); BLOOD UREA NITROGEN 18 MG/DL (7-18); CALCIUM 8.1 MG/DL (8.5-10.1); CHLORIDE 94 MEQ/L (98-107); CREATININE 1.49 MG/DL (0.50-1.00); GLOMERULAR FILTRATION RATE 35 ML/MIN (>89); GLUCOSE,RANDOM 94 MG/DL (74-106); SODIUM (NA) 126 MEQ/L (136-145)
[2017-11-30 03:52] LABS: ALKALINE PHOSPHATASE 110 U/L (45-117); ALT (GPT) 49 U/L (10-53); TOTAL BILIRUBIN ADULT 0.3 MG/DL (0.2-1.0); TOTAL PROTEIN 6.7 GM/DL (6.4-8.2)
[2017-11-30] MEDS: SODIUM CHLOR 0.9% 1000 ML INJ 1,000 ML IV SCH ×2 (04:36→14:36)
[2017-11-30] MEDS ORDERED: LACTULOSE SYRUP 20 GM/30 ML CUP PO PRN (04:45)
[2017-11-30] MEDS ORDERED: MAGNESIUM HYDROXIDE SUSP 30 ML CUP PO PRN (04:45)
[2017-11-30] MEDS ORDERED: ACETAMINOPHEN 325 MG TAB PO PRN (04:45)
[2017-11-30] MEDS ORDERED: NALOXONE HCL 0.4 MG/ML AMP IV PUSH PRN (04:45)
[2017-11-30] MEDS ORDERED: LORazepam 1 MG TAB PO PRN (04:45)
[2017-11-30] MEDS ORDERED: LORazepam 2 MG/ML VIAL IV PUSH PRN (04:45)
[2017-11-30] MEDS ORDERED: BISACODYL 10 MG SUPP RECTAL PRN (04:45)
[2017-11-30] MEDS ORDERED: SENNOSIDES 8.6 MG TAB PO PRN (04:45)
[2017-11-30] MEDS ORDERED: FLUMAZENIL 0.5 MG/5 ML VIAL IV PUSH PRN (04:45)
--- NOTE | 2017-11-30 06:06 | RADRPT ---
EXAM DATE/TIME: 11/30/2017 04:06 [facility] COMPARISON: CT ABDOMEN & PELVIS W CONTRAST, October 25, 2017, 8:29. CT ABDOMEN & PELVIS W/O CONTRAST, August 282017, 11:34. CT ABDOMEN & PELVIS W CONTRAST, November 20, 2017, 12:56. INDICATIONS : Abdominal pain ORAL CONTRAST: No oral contrast ingested. RADIATION DOSE: 12.00 CTDIvol (mGy) MEDICAL HISTORY : Pancreatitis. Hypertension. SURGICAL HISTORY : Hysterectomy. Cholecystectomy.Appendectomy.Hip pins. ENCOUNTER: Initial ACUITY: 1 day PAIN SCALE: 7/10 LOCATION: abdomen TECHNIQUE: Volumetric scanning of the abdomen and pelvis was performed. Using automated exposure control and ad justment of the mA and/or kV according to patient size, radiation dose was kept as low as reasonably achievable to obtain optimal diagnostic quality images. DICOM format image data is available electro nically for review and comparison. FINDINGS: LOWER LUNGS: Mild scarring or atelectasis in the lung bases. LIVER: Several small low density liver lesions are likely cysts. Tiny gallstones. SPLEEN: Multiple granulomatous calcifications in the spleen. PANCREAS: Hazy induration within and around the pancreas consistent with pancreatitis. Stable masslike prominen ce of the pancreatic head with scattered calcifications and diffuse dilatation of the pancreatic duct or in KIDNEYS: Tiny bilateral renal cysts, some with hemorrhagic complication ADRENAL GLANDS: Within normal limits. VASCULAR: There is no aortic aneurysm. BOWEL/MESENTERY: Moderate size hiatal hernia. Distal colonic diverticulosis. No abnormal dilatation of bowel. No wall thickening or adjacent inflammatory changes. ABDOMINAL WALL: Within normal limits. RETROPERITONEUM: There is no lymphadenopathy. BLADDER: No wall thickening or mass. REPRODUCTIVE: Uterus surgically absent. No evidence of pelvic mass or free fluid. Multiple surgical clips in the le ft pelvis. INGUINAL: There is no lymphadenopathy or hernia. MUSCULOSKELETAL: Previous pinning of the hips bilaterally. Degenerative changes in the spine. CONCLUSION: Findings consistent with acute and chronic pancreatitis. Masslike prominence of the pancreatic head i s likely inflammatory sequela however this appearance will need to be followed. See above for additional details Estevan Palacio MD on November 30, 2017 at 5:58 Board Certified Radiologist. This report was verified electronically.
[2017-11-30] MEDS: LORazepam 2 MG/ML VIAL IV PUSH PRN ×2 (07:43→16:11)
[2017-11-30] MEDS: SODIUM CHLORIDE 0.9% FLUSH 10 ML FLUSH IV FLUSH SCH ×2 (09:00→21:59)
[2017-11-30] MEDS: DOCUSATE SODIUM 50 MG/SENNA 8.6 MG TAB PO SCH ×2 (09:00→22:02)
[2017-11-30] MEDS: ONDANSETRON HCL 4 MG/2 ML VIAL IVP PRN (09:31)
[2017-11-30] MEDS: HEPARIN SODIUM - SQ 10,000 UNITS/ML VIAL SQ SCH ×2 (09:31→22:01)
[2017-11-30] MEDS: MORPHINE SULFATE 2 MG/ML SYRINGE IV PUSH PRN ×3 (11:40→22:14)
--- NOTE | 2017-11-30 12:01 | HHI.HP ---
HPI Service [facility] Primary Care Physician Maxi Branch MD Admission Diagnosis Pancreatitis, hyponatremia, renal insufficiency Diagnoses: Travel History International Travel<30 Days: No Contact w/Intl Traveler <30 Da: No Traveled to Known Affected Are: No History of Present Illness started yesterday nausea vomiting diarrhea 2-3x a day she thinks vomitus is some reddish color diarrhea is normal color she is up on and off all night with diarrhea dizziness lives by herself very emotiona; Review of Systems Except as stated in HPI: all other systems reviewed are Neg Past Family Social History Past Medical History htn afib breast cancer - 4-5 yrs ago, s/p resection, and radiation - left breast gi ulcers chronic pancreatitis Past Surgical History hysterectomy left breast cancer removal Allergies: Coded Allergies: Sulfa (Sulfonamide Antibiotics) (Unverified Allergy, Intermediate, rash, ) Family History none that she knows of Social History quit smoking several years ago drinks etoh about 2-3 ounces of josiah warnerels a day no drugs lives by herself Physical Exam Vital Signs Vital Signs Date Time Temp Pulse Resp B/P (MAP) Pulse Ox O2 Delivery O2 Flow Rate FiO2 11/30/17 09:55 99.0 108 20 139/63 (88) 99 11/30/17 08:00 99.0 108 20 139/63 (88) 99 11/30/17 07:55 11/30/17 07:54 108 16 130/78 (95) 97 Room Air 11/30/17 05:37 114 18 136/66 (89) 99 Room Air 11/30/17 04:07 18 99 Room Air 11/30/17 02:26 95 18 148/74 (98) 99 Room Air 11/30/17 01:44 98.7 97 18 132/74 (93) 99 11/30/17 01:38 18 Physical Exam GENERAL: This is a well-nourished, well-developed patient, in no apparent distress. SKIN: No rashes, ecchymoses or lesions. Cool and dry. HEAD: Atraumatic. Normocephalic. No temporal or scalp tenderness. EYES: Pupils equal round and reactive. Extraocular motions intact. No scleral icterus. No injection or drainage. ENT: Nose without bleeding, purulent drainage or septal hematoma. Throat without erythema, tonsillar hypertrophy or exudate. Uvula midline. Airway patent. NECK: Trachea midline. No JVD or lymphadenopathy. Supple, nontender, no meningeal signs. CARDIOVASCULAR: Regular rate and rhythm without murmurs, gallops, or rubs. RESPIRATORY: Clear to auscultation. Breath sounds equal bilaterally. No wheezes , rales, or rhonchi. GASTROINTESTINAL: Abdomen soft, non-tender, nondistended. No hepato-splenomegaly , or palpable masses. No guarding. MUSCULOSKELETAL: Extremities without clubbing, cyanosis, or edema. No joint tenderness, effusion, or edema noted. No calf tenderness. Negative Homans sign bilaterally. NEUROLOGICAL: Awake and alert. Cranial nerves II through XII intact. Motor and sensory grossly within normal limits. Five out of 5 muscle strength in all muscle groups. Normal speech. Laboratory Laboratory Tests Test 11/30/17 02:47 White Blood Count 6.7 Red Blood Count 3.76 Hemoglobin 11.6 Hematocrit 35.1 Mean Corpuscular Volume 93.5 Mean Corpuscular Hemoglobin 30.8 Mean Corpuscular Hemoglobin Concent 32.9 Red Cell Distribution Width 14.6 Platelet Count 400 Mean Platelet Volume 7.7 Neutrophils (%) (Auto) 59.1 Lymphocytes (%) (Auto) 24.4 Monocytes (%) (Auto) 15.1 Eosinophils (%) (Auto) 0.6 Basophils (%) (Auto) 0.8 Neutrophils # (Auto) 4.0 Lymphocytes # (Auto) 1.6 Monocytes # (Auto) 1.0 Eosinophils # (Auto) 0.0 Basophils # (Auto) 0.1 CBC Comment DIFF FINAL Differential Comment Blood Urea Nitrogen 18 Creatinine 1.49 Random Glucose 94 Total Protein 6.7 Albumin 2.8 Calcium Level 8.1 Alkaline Phosphatase 110 Aspartate Amino Transf (AST/SGOT) 154 Alanine Aminotransferase (ALT/SGPT) 49 Total Bilirubin 0.3 Sodium Level 126 Potassium Level 4.1 Chloride Level 94 Carbon Dioxide Level 16.8 Anion Gap 15 Estimat Glomerular Filtration Rate 35 Lipase 46395 Ethyl Alcohol Level 40 Result Diagram: 11/30/177 11/30/177 Caprini VTE Risk Assessment Caprini Risk Assessment Model Point Value = 1 Point Value = 2 Point Value = 3 Point Value = 5 Age 41-60 Minor surgery BMI > 25 kg/m2 Swollen legs Varicose veins or History of unexplained or recurrent spontaneous Oral contraceptives or hormone replacement Sepsis (< 1 month) Serious lung disease, including pneumonia (< 1 month) Abnormal pulmonary function Acute myocardial infarction Congestive heart failure (< 1 month) History of inflammatory bowel disease Medical patient at bed rest Age 61-74 Arthroscopic surgery Major open surgery (> 45 min) Laparoscopic surgery (> 45 min) Malignancy Confined to bed (> 72 hours) Immobilizing plaster cast Central venous access Age >= 75 History of VTE Family history of VTE Factor V Leiden Prothrombin [id number] Lupus anticoagulant Anticardiolipin antibodies Elevated serum homocysteine Heparin-induced thrombocytopenia Other congenital or acquired thrombophilia Stroke (< 1 month) Elective arthroplasty Hip, pelvis, or leg fracture Acute spinal cord injury (< 1 month) Prophylaxis Regimen Total Risk Factor Score Risk Level Prophylaxis Regimen 0-1 Low Early ambulation 2 Moderate Order ONE of the following: *Sequential Compression Device (SCD) *Heparin 5000 units SQ BID 3-4 Higher Order ONE of the following medications: *Heparin 5000 units SQ TID *Enoxaparin/Lovenox 40 mg SQ daily (WT < 150 kg, CrCl > 30 mL/min) *Enoxaparin/Lovenox 30 mg SQ daily (WT < 150 kg, CrCl > 10-29 mL/min) *Enoxaparin/Lovenox 30 mg SQ BID (WT < 150 kg, CrCl > 30 mL/min) AND/OR *Sequential Compression Device (SCD) 5 or more Highest Order ONE of the following medications: *Heparin 5000 units SQ TID (Preferred with Epidurals) *Enoxaparin/Lovenox 40 mg SQ daily (WT < 150 kg, CrCl > 30 mL/min) *Enoxaparin/Lovenox 30 mg SQ daily (WT < 150 kg, CrCl > 10-29 mL/min) *Enoxaparin/Lovenox 30 mg SQ BID (WT < 150 kg, CrCl > 30 mL/min) AND *Sequential Compression Device (SCD) Assessment and Plan Assessment and Plan Impression: Acute on chronic pancreatitis Heavy alcohol use Likely underlying depression. Patient lost her about 1-1/2 years ago. Her son also committed suicide. Hypertension Atrial fibrillation History of left breast cancer about 45 years ago. Status post resection and radiation treatment. History of GI ulcers Chronic pancreatitis Plan: Advance diet to liquid diet. Patient is complaining of significant pain. However it also seems that she is afraid to go home. No doubt she does have some pain though. We will see with advance diet whether she is able to tolerate. Patient is counseled in detail regarding alcohol use. Resume her home medications. Patient states that she does not take Xarelto. She has never heard of that name. However she was prescribed at discharge recently though and she states that she takes all the medications that she gets from the pharmacy. DVT prophylaxis on Xarelto. Would likely need to consider whether she is a good candidate for Xarelto because of her living alone, drinking alcohol, Discussed Condition With Patient, nursing staff Physician Certification Order for Inpatient Services The services are ordered in accordance with Medicare regulations or non- Medicare payer requirements, as applicable. In the case of services not specified as inpatient-only, they are appropriately provided as inpatient services in accordance with the 2-midnight benchmark. days is the estimated time the patient will need to remain in the hospital, assuming treatment plan goals are met and no additional complications. Codie Segovia MD Nov 30, 2017 12:01
[2017-11-30] MEDS ORDERED: [UNRECOGNIZED DRUG - OTHER] PO SCH (13:30)
[2017-11-30] MEDS: METOPROLOL TARTRATE 50 MG TAB PO SCH (22:01)
[2017-12-01] VITALS: BP 172/77; PULSE 66; RESP 20; TEMP 98.2; O2SAT 97
[2017-12-01] MEDS: SODIUM CHLOR 0.9% 1000 ML INJ 1,000 ML IV SCH ×3 (00:34→20:36)
[2017-12-01] MEDS: MORPHINE SULFATE 2 MG/ML SYRINGE IV PUSH PRN (02:41)
[2017-12-01] MEDS: LORazepam 2 MG/ML VIAL IV PUSH PRN ×4 (03:05→17:51)
[2017-12-01] MEDS: LEVOTHYROXINE SODIUM 75 MCG TAB PO SCH (05:42)
[2017-12-01 07:37] LABS: CALCIUM 8.2 MG/DL (8.5-10.1)
[2017-12-01 07:38] LABS: ALBUMIN 2.6 GM/DL (3.4-5.0); BLOOD UREA NITROGEN 17 MG/DL (7-18); GLUCOSE,RANDOM 101 MG/DL (74-106)
[2017-12-01 07:40] LABS: AST (GOT) 63 U/L (15-37)
[2017-12-01 07:41] LABS: ALT (GPT) 32 U/L (10-53); GLOMERULAR FILTRATION RATE 44 ML/MIN (>89)
[2017-12-01 07:42] LABS: TOTAL BILIRUBIN ADULT 0.8 MG/DL (0.2-1.0); TOTAL PROTEIN 6.2 GM/DL (6.4-8.2)
[2017-12-01 07:43] LABS: ALKALINE PHOSPHATASE 100 U/L (45-117)
[2017-12-01 07:44] LABS: CHLORIDE 103 MEQ/L (98-107); SODIUM (NA) 134 MEQ/L (136-145)
[2017-12-01 08:00] VITALS: BP 176/86; PULSE 83; RESP 18; TEMP 99.6; O2SAT 98
[2017-12-01] MEDS: SODIUM CHLORIDE 0.9% FLUSH 10 ML FLUSH IV FLUSH SCH ×2 (08:56→21:00)
[2017-12-01] MEDS: FOLIC ACID 1 MG TAB PO SCH (08:56)
[2017-12-01] MEDS: MULTIVITAMIN TAB PO SCH (08:57)
[2017-12-01] MEDS: METOPROLOL TARTRATE 50 MG TAB PO SCH (08:57)
[2017-12-01] MEDS: DOCUSATE SODIUM 50 MG/SENNA 8.6 MG TAB PO SCH (08:57)
[2017-12-01] MEDS: THIAMINE HCL 100 MG TAB PO SCH (08:57)
[2017-12-01] MEDS: PANTOPRAZOLE SOD 40 MG DELAYED RELEASE TAB PO SCH (08:57)
[2017-12-01] MEDS: HEPARIN SODIUM - SQ 10,000 UNITS/ML VIAL SQ SCH (08:57)
--- NOTE | 2017-12-01 11:00 | HHI.PR ---
Subjective Remarks Patient seen today in follow-up for alcoholic withdrawal and pancreatitis. Patient CIWA score this morning is 14. Objective Vitals Vital Signs Date Time Temp Pulse Resp B/P (MAP) Pulse Ox O2 Delivery O2 Flow Rate FiO2 12/01/17 08:00 99.6 83 18 176/86 (116) 98 12/01/17 00:00 98.2 66 20 172/77 (108) 97 11/30/17 20:00 98.8 83 20 153/71 (98) 98 11/30/17 16:00 98.1 86 20 122/67 (85) 99 11/30/17 12:00 98.7 99 18 154/66 (95) 95 I/O 11/30/17 11/30/17 11/30/17 12/01/17 12/01/17 12/01/17 06:59 14:59 22:59 06:59 14:59 22:59 Intake Total 1504 ml 240 ml Output Total 350 ml Balance -350 ml 1504 ml 240 ml Intake Oral 240 ml IV Total 1504 ml Output Urine Total 350 ml # Voids 3 2 # Bowel Movements 0 Result Diagram: 11/30/17 0247 12/01/17 0635 Objective Remarks GENERAL: This is a well-nourished, well-developed patient, patient planes of belly pain and is tearful CARDIOVASCULAR: Regular rate and rhythm without murmurs, gallops, or rubs. RESPIRATORY: Clear to auscultation. Breath sounds equal bilaterally. No wheezes , rales, or rhonchi. GASTROINTESTINAL: Abdomen soft, mildly diffusely tender, nondistended. Normal active bowel sounds MUSCULOSKELETAL: Extremities without clubbing, cyanosis, or edema. NEURO: Alert & Oriented x4 to person, place, time, situation. Moves all ext x4 A/P Problem List: (1) Acute recurrent pancreatitis ICD Code: K85.90 - Acute pancreatitis without necrosis or infection, unspecified Status: Acute Plan: Patient is a long-standing alcoholic abusive behavior pattern. She has some elevated LFTs and electrolyte imbalances and appears to have some mood instability due to her underlying depression will increase her pancreatic enzymes (2) Hyponatremia ICD Code: E87.1 - Hyponatremia Status: Acute Plan: Improved (3) Renal insufficiency ICD Code: N28.9 - Disorder of kidney and ureter, unspecified Status: Acute Plan: Improved with IV hydration Avoid nephrotoxic injury (4) Atrial fibrillation ICD Code: I48.91 - Unspecified atrial fibrillation Status: Chronic Plan: This patient with frequent falls and alcoholism is a poor candidate for full anticoagulation We will continue with rate control and full dose aspirin instead of Xarelto Patient will follow up with her primary care provider for further recommendations (5) Depression ICD Code: F32.9 - Depression Status: Chronic Plan: Patient appears to self medicate with alcohol In the past she has been seen by psychiatry and recommendation for Effexor for and Klonopin were made Patient has no interest in following up with psychiatry at this time She has no suicidal intent on clinical assessment Outpatient psychiatric is appropriate for this patient if she should choose to follow-up (6) HTN (hypertension) ICD Code: I10 - Essential (primary) hypertension Status: Chronic Plan: Continue metoprolol and losartan Criss Ken MD Dec 01, 2017 10:59
[2017-12-01 12:00] VITALS: BP 163/76; PULSE 74; RESP 14; TEMP 99.8; O2SAT 98
[2017-12-01] MEDS: LIPASE/PROTEASE/AMYLASE (6,000/19,000/30,000) CAP PO SCH ×2 (12:21→17:16)
[2017-12-01 12:26] LABS: BILIRUBIN, URINE NEG (NEG); BLOOD, URINE SMALL (NEG); GLUCOSE,URINE NEG (NEG); KETONE, URINE NEG (NEG); NITRITE,URINE NEG (NEG); URINE COLOR YELLOW (YELLW/STRAW); URINE LEUKOCYTE ESTERASE NEG (NEG)
[2017-12-01] MEDS: LOSARTAN 50 MG TAB PO SCH (12:27)
[2017-12-01 12:42] LABS: RBC, URINE 0-3 /hpf (0-3); SQUAMOUS EPITHELIAL CELL URINE 0-5 /hpf (0-5)
[2017-12-01] MEDS: LORazepam 2 MG TAB PO PRN (14:15)
[2017-12-01] MEDS ORDERED: clonazePAM 1 MG TAB PO ONE (14:30)
[2017-12-01 18:26] VITALS: BP 170/89; PULSE 76; RESP 14; TEMP 98.2; O2SAT 99
[2017-12-02] MEDS: LORazepam 2 MG TAB PO PRN
[2017-12-02] MEDS: HEPARIN SODIUM - SQ 10,000 UNITS/ML VIAL SQ SCH ×3 (00:01→19:56)
[2017-12-02 00:30] VITALS: BP 150/77; PULSE 73; RESP 16; TEMP 97.2; O2SAT 98
[2017-12-02] MEDS: LEVOTHYROXINE SODIUM 75 MCG TAB PO SCH (05:41)
[2017-12-02 07:05] LABS: CALCIUM 8.2 MG/DL (8.5-10.1)
[2017-12-02 07:06] LABS: BICARBONATE 21.4 MEQ/L (21.0-32.0)
[2017-12-02 07:09] LABS: CREATININE 0.8 MG/DL (0.50-1.00)
[2017-12-02] MEDS: SODIUM CHLOR 0.9% 1000 ML INJ 1,000 ML IV SCH ×2 (07:13→10:05)
[2017-12-02 07:50] VITALS: BP_SYST 134; BP_DIAS 60; BP_DIAS 81; PULSE 43; PULSE 61; RESP 20; TEMP 97.9; TEMP 98.3; O2SAT 97; O2SAT 99
[2017-12-02] MEDS: ONDANSETRON HCL 4 MG/2 ML VIAL IVP PRN (09:07)
[2017-12-02] MEDS: LIPASE/PROTEASE/AMYLASE (6,000/19,000/30,000) CAP PO SCH ×3 (09:11→18:14)
[2017-12-02] MEDS: MULTIVITAMIN TAB PO SCH (09:11)
[2017-12-02] MEDS: FOLIC ACID 1 MG TAB PO SCH (09:11)
[2017-12-02] MEDS: THIAMINE HCL 100 MG TAB PO SCH (09:11)
[2017-12-02] MEDS: MORPHINE SULFATE 2 MG/ML SYRINGE IV PUSH PRN ×3 (09:11→17:15)
[2017-12-02] MEDS: LOSARTAN 50 MG TAB PO SCH (09:11)
[2017-12-02] MEDS: PANTOPRAZOLE SOD 40 MG DELAYED RELEASE TAB PO SCH (09:11)
[2017-12-02] MEDS: METOPROLOL TARTRATE 50 MG TAB PO SCH ×3 (09:11→19:56)
[2017-12-02] MEDS: SODIUM CHLORIDE 0.9% FLUSH 10 ML FLUSH IV FLUSH SCH ×2 (09:21→19:56)
--- NOTE | 2017-12-02 11:10 | HHI.PR ---
Subjective Remarks Patient seen and evaluated in follow-up for depression Alcohol dependency and acute pancreatitis she is agreeable for evaluation for inpatient rehab Overall improved clinically Did well with Elavil and she now remains taking Pristiq Objective Vitals Vital Signs Date Time Temp Pulse Resp B/P (MAP) Pulse Ox O2 Delivery O2 Flow Rate FiO2 12/02/17 07:50 97.9 61 20 134/81 (98) 99 12/02/17 04:10 12/02/17 00:30 97.2 73 16 150/77 (101) 98 12/01/17 18:26 98.2 76 14 170/89 (116) 99 12/01/17 12:00 99.8 74 14 163/76 (105) 98 I/O 12/01/17 12/01/17 12/01/17 12/02/17 12/02/17 12/02/17 07:00 15:00 23:00 07:00 15:00 23:00 Intake Total 1504 ml 240 ml 480 ml Balance 1504 ml 240 ml 480 ml Intake Oral 240 ml 480 ml IV Total 1504 ml # Voids 2 4 3 # Bowel Movements 0 0 Result Diagram: 11/30/17 0247 12/02/17 0515 Objective Remarks GENERAL: This is a well-nourished, well-developed patient, no acute distress CARDIOVASCULAR: Regular rate and rhythm without murmurs, gallops, or rubs. RESPIRATORY: Clear to auscultation. Breath sounds equal bilaterally. No wheezes , rales, or rhonchi. GASTROINTESTINAL: Abdomen soft, mildly diffusely tender, nondistended. Normal active bowel sounds MUSCULOSKELETAL: Extremities without clubbing, cyanosis, or edema. NEURO: Alert & Oriented x4 to person, place, time, situation. Moves all ext x4 A/P Problem List: (1) Acute recurrent pancreatitis ICD Code: K85.90 - Acute pancreatitis without necrosis or infection, unspecified Status: Acute Plan: Patient has a long-standing alcoholic abusive behavior pattern. She has some elevated LFTs and electrolyte imbalances and appears to have some mood instability due to her underlying depression cont pancreatic enzymes, librium, elavil pristiq (2) Hyponatremia ICD Code: E87.1 - Hyponatremia Status: Acute Plan: Improved (3) Renal insufficiency ICD Code: N28.9 - Disorder of kidney and ureter, unspecified Status: Acute Plan: Improved with IV hydration Avoid nephrotoxic injury (4) Atrial fibrillation ICD Code: I48.91 - Unspecified atrial fibrillation Status: Chronic Plan: This patient with frequent falls and alcoholism is a poor candidate for full anticoagulation We will continue with rate control and full dose aspirin instead of Xarelto Patient will follow up with her primary care provider for further recommendations (5) Depression ICD Code: F32.9 - Depression Status: Chronic Plan: Patient appears to self medicate with alcohol In the past she has been seen by psychiatry and recommendation for Effexor for and Klonopin were made Patient remembers being on pristiq She has no suicidal intent on clinical assessment Outpatient psychiatric is appropriate for this patient if she should choose to follow-up (6) HTN (hypertension) ICD Code: I10 - Essential (primary) hypertension Status: Chronic Plan: Continue metoprolol and losartan Discharge Planning inpatient rehab Criss Cole MD Dec 02, 2017 11:10
[2017-12-02 11:50] VITALS: BP 144/75; PULSE 60; RESP 20; TEMP 98.1; O2SAT 100
[2017-12-02] MEDS ORDERED: LACTOBACILLUS ACIDOPHILUS TAB PO SCH (12:30)
[2017-12-02] MEDS ORDERED: FUROSEMIDE 20 MG TAB PO SCH (12:30)
[2017-12-02] MEDS ORDERED: ACETAMINOPHEN 500 MG CPLT PO ONE (12:30)
[2017-12-02] MEDS ORDERED: guaiFENesin E.R. 600 MG TAB PO SCH (12:30)
[2017-12-02] MEDS: LORazepam 2 MG/ML VIAL IV PUSH PRN ×2 (15:38→23:24)
[2017-12-02 15:50] VITALS: BP 151/81; PULSE 69; RESP 20; TEMP 97.4; O2SAT 99
[2017-12-02] MEDS: AMITRIPTYLINE HCL 50 MG TAB PO SCH ×2 (19:56)
[2017-12-02 21:12] VITALS: BP 155/79; PULSE 70; RESP 16; TEMP 97.7; O2SAT 96
[2017-12-03 00:56] VITALS: BP 162/79; PULSE 67; RESP 16; TEMP 97; O2SAT 96
[2017-12-03] MEDS: LEVOTHYROXINE SODIUM 75 MCG TAB PO SCH (06:27)
[2017-12-03 07:50] VITALS: BP 175/92; PULSE 65; RESP 20; TEMP 97.7; O2SAT 99
[2017-12-03] MEDS: LORazepam 2 MG/ML VIAL IV PUSH PRN ×3 (07:57→22:09)
[2017-12-03] MEDS: LOSARTAN 50 MG TAB PO SCH (08:47)
[2017-12-03] MEDS: MULTIVITAMIN TAB PO SCH (08:47)
[2017-12-03] MEDS: THIAMINE HCL 100 MG TAB PO SCH (08:47)
[2017-12-03] MEDS: MORPHINE SULFATE 2 MG/ML SYRINGE IV PUSH PRN ×2 (08:47→17:21)
[2017-12-03] MEDS: LIPASE/PROTEASE/AMYLASE (6,000/19,000/30,000) CAP PO SCH ×3 (08:47→17:19)
[2017-12-03] MEDS: PANTOPRAZOLE SOD 40 MG DELAYED RELEASE TAB PO SCH (08:47)
[2017-12-03] MEDS: METOPROLOL TARTRATE 50 MG TAB PO SCH ×2 (08:47→19:51)
[2017-12-03] MEDS: FOLIC ACID 1 MG TAB PO SCH (08:47)
[2017-12-03] MEDS: SODIUM CHLORIDE 0.9% FLUSH 10 ML FLUSH IV FLUSH SCH ×2 (08:48→19:50)
[2017-12-03] MEDS: HEPARIN SODIUM - SQ 10,000 UNITS/ML VIAL SQ SCH ×2 (08:49→19:51)
[2017-12-03] MEDS: ONDANSETRON HCL 4 MG/2 ML VIAL IVP PRN (09:03)
--- NOTE | 2017-12-03 09:31 | HHI.PR ---
Subjective Remarks Pt still has nausea but no vomiting. Wants something for the nausea and not sure if RN gave her pain meds yet. Pain located in the epigastric region. Had some jello this morning. Objective Vitals Vital Signs Date Time Temp Pulse Resp B/P (MAP) Pulse Ox O2 Delivery O2 Flow Rate FiO2 12/03/17 04:00 12/03/17 00:56 97.0 67 16 162/79 (106) 96 12/02/17 21:12 97.7 70 16 155/79 (104) 96 12/02/17 15:50 97.4 69 20 151/81 (104) 99 12/02/17 11:50 98.1 60 20 144/75 (98) 100 I/O 12/02/17 12/02/17 12/02/17 12/03/17 12/03/17 12/03/17 07:00 15:00 23:00 07:00 15:00 23:00 Intake Total 122 ml 690 ml Output Total 300 ml Balance -178 ml 690 ml Intake Oral 690 ml IV Total 122 ml Output Urine Total 300 ml # Voids 3 3 3 # Bowel Movements 0 0 Result Diagram: 11/30/17 0247 12/02/17 0515 Imaging Last Impressions Abdomen/Pelvis CT 11/30/17 0402 Signed Impressions: Service Date/Time: November 04:06 - CONCLUSION: Findings consistent with acute and chronic pancreatitis. Masslike prominence of the pancreatic head is likely inflammatory sequela however this appearance will need to be followed. See above for additional details Estevan Palacio MD Objective Remarks GENERAL: elderly female, laying in bed CARDIOVASCULAR: Regular rate and rhythm without murmurs RESPIRATORY: Clear to auscultation. Breath sounds equal bilaterally. No wheezes GASTROINTESTINAL: Abdomen soft, epigastric tenderness noted. hypoactive bowel sounds MUSCULOSKELETAL: Extremities without edema. NEURO: Alert & Oriented. Moves all ext x4 A/P Problem List: (1) Acute recurrent pancreatitis ICD Code: K85.90 - Acute pancreatitis without necrosis or infection, unspecified Status: Acute (2) Hyponatremia ICD Code: E87.1 - Hyponatremia Status: Acute (3) Renal insufficiency ICD Code: N28.9 - Disorder of kidney and ureter, unspecified Status: Acute (4) Atrial fibrillation ICD Code: I48.91 - Unspecified atrial fibrillation Status: Chronic (5) Depression ICD Code: F32.9 - Depression Status: Chronic (6) HTN (hypertension) ICD Code: I10 - Essential (primary) hypertension Status: Chronic Assessment and Plan A/P (1) Patient has a long-standing alcoholic abusive behavior pattern. She has some elevated LFTs and electrolyte imbalances and appears to have some mood instability due to her underlying depression cont pancreatic enzymes, librium, elavil pristiq (2) Hyponatremia Improved, checking BMP today (3) Renal insufficiency resolved. continue IV hydration as pt still not tolerating a diet Avoid nephrotoxic injury (4) Atrial fibrillation This patient with frequent falls and alcoholism is a poor candidate for full anticoagulation We will continue with rate control and full dose aspirin instead of Xarelto Patient will follow up with her primary care provider for further recommendations (5) Depression Patient appears to self medicate with alcohol In the past she has been seen by psychiatry and recommendation for Effexor for and Klonopin were made Patient remembers being on pristiq She has no suicidal intent on clinical assessment Outpatient psychiatric is appropriate for this patient if she should choose to follow-up (6) HTN (hypertension) Continue metoprolol and losartan Discharge Planning inpatient rehab eval but apparently pt is refusing and wanting to be discharged home. She is not a safe discharge at this point. Pt still w epigastric pain, nausea. Continue current management Might advance to low fat diet tomorrow Yani Ivy MD Dec 03, 2017 09:31
[2017-12-03 09:52] LABS: CALCIUM 7.9 MG/DL (8.5-10.1)
[2017-12-03 09:53] LABS: BICARBONATE 24.3 MEQ/L (21.0-32.0)
[2017-12-03 09:56] LABS: CREATININE 0.96 MG/DL (0.50-1.00)
[2017-12-03 11:50] VITALS: BP 164/88; PULSE 67; RESP 20; TEMP 96.8; O2SAT 100
[2017-12-03 13:56] VITALS: BP 146/84
[2017-12-03 15:50] VITALS: BP 156/91; PULSE 69; RESP 20; TEMP 98.9; O2SAT 99
[2017-12-03] MEDS: AMITRIPTYLINE HCL 50 MG TAB PO SCH (19:51)
[2017-12-03 20:00] VITALS: BP 151/86; PULSE 71; RESP 18; TEMP 97.7; O2SAT 96
[2017-12-04] VITALS: BP 149/86; PULSE 64; RESP 18; TEMP 97.9; O2SAT 98
[2017-12-04] MEDS: MORPHINE SULFATE 2 MG/ML SYRINGE IV PUSH PRN (02:30)
[2017-12-04] MEDS: LORazepam 2 MG/ML VIAL IV PUSH PRN (02:30)
[2017-12-04] MEDS: LEVOTHYROXINE SODIUM 75 MCG TAB PO SCH (05:35)
[2017-12-04 07:20] LABS: BICARBONATE 22.7 MEQ/L (21.0-32.0)
[2017-12-04 07:23] LABS: CREATININE 0.81 MG/DL (0.50-1.00)
[2017-12-04 08:37] VITALS: BP 151/78; PULSE 66; RESP 15; TEMP 98; O2SAT 98
[2017-12-04] MEDS: THIAMINE HCL 100 MG TAB PO SCH (09:00)
[2017-12-04] MEDS: LORazepam 2 MG TAB PO PRN (09:01)
[2017-12-04] MEDS: SODIUM CHLORIDE 0.9% FLUSH 10 ML FLUSH IV FLUSH SCH (09:01)
[2017-12-04] MEDS: HEPARIN SODIUM - SQ 10,000 UNITS/ML VIAL SQ SCH (09:01)
[2017-12-04] MEDS: LIPASE/PROTEASE/AMYLASE (6,000/19,000/30,000) CAP PO SCH (09:02)
[2017-12-04] MEDS: PANTOPRAZOLE SOD 40 MG DELAYED RELEASE TAB PO SCH (09:02)
[2017-12-04] MEDS: MULTIVITAMIN TAB PO SCH (09:02)
[2017-12-04] MEDS: LOSARTAN 50 MG TAB PO SCH (09:02)
[2017-12-04] MEDS: FOLIC ACID 1 MG TAB PO SCH (09:02)
[2017-12-04] MEDS: METOPROLOL TARTRATE 50 MG TAB PO SCH (09:02)
--- NOTE | 2017-12-04 19:30 | HHI.DS ---
Discharge Summary Admission Date Nov 30, 2017 at 04:42 Discharge Date: Dec 04, 2017 Admitting Diagnosis Pancreatitis, hyponatremia, renal insufficiency (1) Acute recurrent pancreatitis ICD Code: K85.90 - Acute pancreatitis without necrosis or infection, unspecified Status: Acute (2) Hyponatremia ICD Code: E87.1 - Hyponatremia Status: Acute (3) Renal insufficiency ICD Code: N28.9 - Disorder of kidney and ureter, unspecified Status: Acute (4) Atrial fibrillation ICD Code: I48.91 - Unspecified atrial fibrillation Status: Chronic (5) Depression ICD Code: F32.9 - Depression Status: Chronic (6) HTN (hypertension) ICD Code: I10 - Essential (primary) hypertension Status: Chronic Procedures none Brief History - From Admission started yesterday nausea vomiting diarrhea 2-3x a day she thinks vomitus is some reddish color diarrhea is normal color she is up on and off all night with diarrhea dizziness lives by herself very emotiona; CBC/BMP: 11/30/17 0247 12/04/17 0510 Significant Findings Laboratory Tests Test 12/02/17 05:15 12/03/17 09:15 12/04/17 05:10 Calcium Level 8.2 MG/DL (8.5-10.1) 7.9 MG/DL (8.5-10.1) 8.0 MG/DL (8.5-10.1) Sodium Level 134 MEQ/L (136-145) 133 MEQ/L (136-145) 135 MEQ/L (136-145) Estimat Glomerular Filtration Rate 71 ML/MIN (>89) 57 ML/MIN (>89) 70 ML/MIN (>89) Random Glucose 116 MG/DL (74-106) Lipase 397 U/L (73-393) PE at Discharge GENERAL: elderly female, laying in bed CARDIOVASCULAR: Regular rate and rhythm without murmurs RESPIRATORY: Clear to auscultation. Breath sounds equal bilaterally. No wheezes GASTROINTESTINAL: Abdomen soft, epigastric tenderness noted. hypoactive bowel sounds MUSCULOSKELETAL: Extremities without edema. NEURO: Alert & Oriented. Moves all ext x4 Hospital Course Before I could evaluate the pt, she had chosen to leave AMA. Patient has a long-standing alcoholic abusive behavior pattern. She was admitted w some elevated LFTs and electrolyte imbalances and appears to have some mood instability due to her underlying depression cont pancreatic enzymes, librium, elavil, pristiq. She was found to have hyponatremia which improved. In addition, she also had renal insufficiency which resolved. Pt is know to have atrial fib but has a hx of frequent falls and alcoholism and is a not a candidate for full anticoagulation. She instead was on full dose ASA. As far as her depression, she appears to self medicate w EtOh. She has no suicidal ideation during this admission. outpatient f/u recommended. While in the hospital, PT recommended rehab but pt refuses all recs regarding rehab, home health PT. Pt Condition on Discharge: Stable Discharge Disposition: Discharge Home (AMA) Discharge Time: <= 30 minutes Yani Ivy MD Dec 04, 2017 19:30
== END 2017-12-04 12:58 | disposition left against medical advice (07) | DRG 439 ==
LOC: PHED 01:32 → PHEDA 04:42 → PH3A 07:45
PROVIDERS: ADMIT Hospitalist; ATTEND Hospitalist
DX: K85.90 Acute pancreatitis without necrosis or infection, unspecified (principal); E87.1 Hypo-osmolality and hyponatremia; I48.2 Chronic atrial fibrillation; F10.239 Alcohol dependence with withdrawal, unspecified; I10 Essential (primary) hypertension; F32.9 Major depressive disorder, single episode, unspecified; N28.9 Disorder of kidney and ureter, unspecified; I25.10 Atherosclerotic heart disease of native coronary artery without angina pectoris; K86.1 Other chronic pancreatitis; K21.9 Gastro-esophageal reflux disease without esophagitis; M19.90 Unspecified osteoarthritis, unspecified site; E03.9 Hypothyroidism, unspecified; E07.9 Disorder of thyroid, unspecified; R42 Dizziness and giddiness; H91.90 Unspecified hearing loss, unspecified ear; R29.6 Repeated falls; Z87.11 Personal history of peptic ulcer disease; Z86.73 Personal history of transient ischemic attack (TIA), and cerebral infarction without residual deficits; Z87.891 Personal history of nicotine dependence; F41.9 Anxiety disorder, unspecified
CPT/HCPCS: 74176; 76937; 80048; 80053; 80307; 81001; 83690; 85025; 96361; 96374; 96375; J1644; J2060; J2270; J2405; J7030

== ENCOUNTER 2017-12-20 07:20 | Observation (INO) | payer MEDICARE, BC ==
[~2017-12-20] VITALS: Ht 167.6 cm; Wt 63.0 kg
[2017-12-20] VITALS (10 sets, daily range): BP systolic 156–190; BP diastolic 71–106; PULSE 69–92; RESP 16–18; TEMP 98–98.6; O2SAT 98–100
[~2017-12-20 07:20] MED LIST changes: -XARE10TA PO
[2017-12-20] MEDS ORDERED: SODIUM CHLOR 0.9% 1000 ML INJ 1,000 ML IV SCH (07:33)
[2017-12-20] MEDS ORDERED: LIDOCAINE VISCOUS 2% SOLN 15 ML UDC PO ONE (07:45)
[2017-12-20] MEDS ORDERED: ONDANSETRON HCL 4 MG/2 ML VIAL IVP ONE (07:45)
[2017-12-20] MEDS ORDERED: ALUMINUM/MAGNESIUM/SIMETH 30 ML CUP PO ONE (07:45)
[2017-12-20] MEDS ORDERED: SODIUM CHLORIDE 0.9% FLUSH 10 ML FLUSH IV FLUSH PRN (07:45)
--- NOTE | 2017-12-20 07:45 | PD ---
HPI Chief Complaint: Abdominal Pain Time Seen by Provider: 07:30 Travel History International Travel<30 days: No Contact w/Intl Traveler<30days: No Traveled to known affect area: No History of Present Illness HPI Patient is a 72 year old female with history of hypertension, afib, breast cancer with resection to left breast 4-5 years ago, gi ulcers and chronic pancreatitis who presents to the ER with complaints of epigastric pain. Patient reports that she had some alcohol last night, reports that she woke up at 3AM this morning with pain to her epigastrium. Reports that she has been feeling nauseous and did vomit multiple times a day. Patient reports an uncomfortable sensation to her epigastrium. Patient denies any chest pain or shortness of breath. Denies cough/congestion. Patient does admit history of alcoholism as well as history of pancreatitis. PFSH Past Medical History Hx Anticoagulant Therapy: Yes Arthritis: Yes Asthma: No Autoimmune Disease: Yes (RA) Blood Disorders: No Anxiety: Yes Depression: Yes Heart Rhythm Problems: No Cancer: Yes (LEFT BREAST CA) Cardiovascular Problems: Yes High Cholesterol: No Chemotherapy: No Chest Pain: No Congestive Heart Failure: No COPD: No Cerebrovascular Accident: Yes (2016) Coronary Artery Disease: Yes Diabetes: No Diminished Hearing: Yes Endocrine: Yes (CHRONIC PANCREATITIS) Gastrointestinal Disorders: Yes (GASTRIC ULCERS) GERD: Yes Genitourinary: No Headaches: Yes Hiatal Hernia: No Heparin Induced Thrombocytopen: No Hypertension: Yes Immune Disorder: Yes Implanted Vascular Access Dvce: No Kidney Stones: No Musculoskeletal: Yes Neurologic: Yes Psychiatric: Yes Reproductive: No Respiratory: No Immunizations Current: Yes Migraines: Yes Pancreatitis: Yes Radiation Therapy: Yes Renal Failure: No Seizures: Yes (history of one) Sickle Cell Disease: No Sleep Apnea: No Thyroid Disease: Yes (HYPOTHYROID) Ulcer: Yes ?: Not Menopausal: Yes : 2 Para: 1 Miscarriage: 1 Past Surgical History Abdominal Surgery: Yes (HYSTERECTOMY) AICD: No Appendectomy: Yes Arteriovenous Shunt: No Body Medical Devices: L hip hardware in place , PT IS NOT SURE Cardiac Surgery: No Cholecystectomy: Yes Ear Surgery: No Endocrine Surgery: No Eye Surgery: No Genitourinary Surgery: No Gynecologic Surgery: Yes (TOTAL HYSTERECTOMY) Hysterectomy: Yes Insulin Pump: No Joint Replacement: No Neurologic Surgery: No Oral Surgery: No Pacemaker: No Thoracic Surgery: No Other Surgery: Yes (COLDWELL/SINUS REPAIR, LEFT LUMPECTOMY) Social History Alcohol Use: Yes (DAILY LIQUOR/WINE USE) Tobacco Use: No Substance Use: No Allergies-Medications (Allergen,Severity, Reaction): Coded Allergies: Sulfa (Sulfonamide Antibiotics) (Unverified Allergy, Intermediate, rash, ) Reported Meds & Prescriptions Reported Meds & Active Scripts Active Synthroid (Levothyroxine Sodium) 75 Mcg Tab 75 Mcg PO DAILY@0600 Folic Acid 1 Mg Tablet 1 Mg PO DAILY Oyster Shell 250 mg + Vit D Tb (Calcium/Vitamin D) 250 Mg Calcium (625 Mg)-125 Unit Tablet 250 Mg PO TID Percocet (Oxycodone-Acetaminophen) 5-325 mg Tab 1 Tab PO Q6H PRN Lopressor (Metoprolol Tartrate) 50 Mg Tab 50 Mg PO Q12HR Vitamin B-1 (Thiamine HCl) 100 Mg Tab 100 Mg PO DAILY 30 Days Creon (Pancrelipase) 3,000-9,500-15,000 Units Cap 1 Cap PO TIDPC Losartan (Losartan Potassium) 100 Mg Tab 100 Mg PO DAILY Thera/Beta-Carotene (Multiple Vitamin) 1 Tab Tab 1 Tab PO DAILY Nexium (Esomeprazole DR) 40 Mg Capdr 40 Mg PO DAILY Review of Systems General / Constitutional: No: Fever Eyes: No: Visual changes HENT: No: Headaches Cardiovascular: No: Chest Pain or Discomfort Respiratory: No: Shortness of Breath Gastrointestinal: Positive: Nausea, Vomiting, Abdominal Pain, No: Diarrhea, Constipation Genitourinary: No: Dysuria Musculoskeletal: No: Pain Skin: No Rash Neurologic: No: Weakness Psychiatric: No: Depression Endocrine: No: Polydipsia Hematologic/Lymphatic: No: Easy Bruising Physical Exam Narrative GENERAL: moderate distress SKIN: Focused skin assessment warm/dry. HEAD: Atraumatic. Normocephalic. EYES: Pupils equal and round. No scleral icterus. No injection or drainage. ENT: No nasal bleeding or discharge. Mucous membranes pink and moist. NECK: Trachea midline. No JVD. CARDIOVASCULAR: Regular rate and rhythm. No murmur appreciated. RESPIRATORY: No accessory muscle use. Clear to auscultation. Breath sounds equal bilaterally. GASTROINTESTINAL: Abdomen soft, increased tenderness to epigastrium, nondistended. Hepatic and splenic margins not palpable. MUSCULOSKELETAL: No obvious deformities. No clubbing. No cyanosis. No edema. NEUROLOGICAL: Awake and alert. No obvious cranial nerve deficits. Motor grossly within normal limits. Normal speech. PSYCHIATRIC: Appropriate mood and affect; insight and judgment normal. Data Data Last Documented VS Vital Signs Date Time Temp Pulse Resp B/P (MAP) Pulse Ox O2 Delivery O2 Flow Rate FiO2 12/20/17 07:37 98.6 76 18 181/81 (114) 100 Room Air Orders Orders Complete Blood Count With Diff (12/20/17 07:33) Comprehensive Metabolic Panel (12/20/17 07:33) Lipase (12/20/17 07:33) Prothrombin Time / Inr (Pt) (12/20/17 07:33) Act Partial Throm Time (Ptt) (12/20/17 07:33) Urinalysis - C+S If Indicated (12/20/17 07:33) Ct Abd/Pel W Iv Contrast(Rout) (12/20/17 07:33) Iv Access Insert/Monitor (12/20/17 07:33) Ecg Monitoring (12/20/17 07:33) Oximetry (12/20/17 07:33) Sodium Chlor 0.9% 1000 Ml Inj (Ns 1000 M (12/20/17 07:33) Sodium Chloride 0.9% Flush (Ns Flush) (12/20/17 07:45) Electrocardiogram (12/20/17 07:33) Ckmb (Isoenzyme) Profile (12/20/17 07:33) Troponin I (12/20/17 07:33) Chest, Single Ap (12/20/17 07:33) Ondansetron Inj (Zofran Inj) (12/20/17 07:45) Al-Mag Hy-Si 40-40-4 Mg/Ml Liq (Mag-Al P (12/20/17 07:45) Lidocaine 2% Viscous (Xylocaine 2% Visco (12/20/17 07:45) Iohexol 350 Inj (Omnipaque 350 Inj) (12/20/17 08:51) Admit Order (Ed Use Only) (12/20/17 10:30) Labs Laboratory Tests Test 12/20/17 07:45 White Blood Count 7.6 TH/MM3 Red Blood Count 3.59 MIL/MM3 Hemoglobin 11.5 GM/DL Hematocrit 33.6 % Mean Corpuscular Volume 93.6 FL Mean Corpuscular Hemoglobin 31.9 PG Mean Corpuscular Hemoglobin Concent 34.1 % Red Cell Distribution Width 16.2 % Platelet Count 361 TH/MM3 Mean Platelet Volume 7.5 FL Neutrophils (%) (Auto) 62.6 % Lymphocytes (%) (Auto) 26.1 % Monocytes (%) (Auto) 10.2 % Eosinophils (%) (Auto) 0.4 % Basophils (%) (Auto) 0.7 % Neutrophils # (Auto) 4.8 TH/MM3 Lymphocytes # (Auto) 2.0 TH/MM3 Monocytes # (Auto) 0.8 TH/MM3 Eosinophils # (Auto) 0.0 TH/MM3 Basophils # (Auto) 0.1 TH/MM3 CBC Comment DIFF FINAL Differential Comment Prothrombin Time 11.3 SEC Prothromb Time International Ratio 1.1 RATIO Activated Partial Thromboplast Time 23.8 SEC Blood Urea Nitrogen 15 MG/DL Creatinine 0.77 MG/DL Random Glucose 90 MG/DL Total Protein 6.5 GM/DL Albumin 3.0 GM/DL Calcium Level 8.3 MG/DL Alkaline Phosphatase 83 U/L Aspartate Amino Transf (AST/SGOT) 46 U/L Alanine Aminotransferase (ALT/SGPT) 26 U/L Total Bilirubin 0.3 MG/DL Sodium Level 142 MEQ/L Potassium Level 3.5 MEQ/L Chloride Level 109 MEQ/L Carbon Dioxide Level 21.6 MEQ/L Anion Gap 11 MEQ/L Estimat Glomerular Filtration Rate 74 ML/MIN Total Creatine Kinase 40 U/L Troponin I LESS THAN 0.02 NG/ML Lipase 641 U/L MDM Medical Decision Making Medical Screen Exam Complete: Yes Emergency Medical Condition: Yes Medical Record Reviewed: Yes Interpretation(s) Vital Signs Date Time Temp Pulse Resp B/P (MAP) Pulse Ox O2 Delivery O2 Flow Rate FiO2 12/20/17 07:27 98.6 78 18 181/81 (114) Differential Diagnosis ACS, pancreatitis, acute gastroenteritis, electrolyte abnormality, cholecystitis Narrative Course Patient is a 72-year-old female who presents the emergency room with complaints of epigastric pain after a night of drinking last night. Patient does have history of chronic pancreatitis most likely due to alcoholism. During the course of the patients emergency department visit, the patients history, examination, and differential diagnosis were reviewed with the patient. The patient was placed on a cardiac cath lab radiology technologist with oximetry and frequent blood pressure monitoring. The patient had an IV access obtained and blood work sent for analysis. The patient was initially provided GI coctail and IVF and zofran The patients laboratory studies were reviewed and remarkable for Laboratory Tests Test 12/20/17 07:45 White Blood Count 7.6 TH/MM3 (4.0-11.0) Red Blood Count 3.59 MIL/MM3 (4.00-5.30) Hemoglobin 11.5 GM/DL (11.6-15.3) Hematocrit 33.6 % (35.0-46.0) Mean Corpuscular Volume 93.6 FL (80.0-100.0) Mean Corpuscular Hemoglobin 31.9 PG (27.0-34.0) Mean Corpuscular Hemoglobin Concent 34.1 % (32.0-36.0) Red Cell Distribution Width 16.2 % (11.6-17.2) Platelet Count 361 TH/MM3 (150-450) Mean Platelet Volume 7.5 FL (7.0-11.0) Neutrophils (%) (Auto) 62.6 % (16.0-70.0) Lymphocytes (%) (Auto) 26.1 % (9.0-44.0) Monocytes (%) (Auto) 10.2 % (0.0-8.0) Eosinophils (%) (Auto) 0.4 % (0.0-4.0) Basophils (%) (Auto) 0.7 % (0.0-2.0) Neutrophils # (Auto) 4.8 TH/MM3 (1.8-7.7) Lymphocytes # (Auto) 2.0 TH/MM3 (1.0-4.8) Monocytes # (Auto) 0.8 TH/MM3 (0-0.9) Eosinophils # (Auto) 0.0 TH/MM3 (0-0.4) Basophils # (Auto) 0.1 TH/MM3 (0-0.2) CBC Comment DIFF FINAL Differential Comment Prothrombin Time 11.3 SEC (9.8-11.6) Prothromb Time International Ratio 1.1 RATIO Activated Partial Thromboplast Time 23.8 SEC (24.3-30.1) Blood Urea Nitrogen 15 MG/DL (7-18) Creatinine 0.77 MG/DL (0.50-1.00) Random Glucose 90 MG/DL (74-106) Total Protein 6.5 GM/DL (6.4-8.2) Albumin 3.0 GM/DL (3.4-5.0) Calcium Level 8.3 MG/DL (8.5-10.1) Alkaline Phosphatase 83 U/L (45-117) Aspartate Amino Transf (AST/SGOT) 46 U/L (15-37) Alanine Aminotransferase (ALT/SGPT) 26 U/L (10-53) Total Bilirubin 0.3 MG/DL (0.2-1.0) Sodium Level 142 MEQ/L (136-145) Potassium Level 3.5 MEQ/L (3.5-5.1) Chloride Level 109 MEQ/L (98-107) Carbon Dioxide Level 21.6 MEQ/L (21.0-32.0) Anion Gap 11 MEQ/L (5-15) Estimat Glomerular Filtration Rate 74 ML/MIN (>89) Total Creatine Kinase 40 U/L (26-192) Troponin I LESS THAN 0.02 NG/ML Lipase 641 U/L (73-393) Radiology studies were reviewed and remarkable for Last Impressions Chest X-Ray 12/20/17 0733 Signed Impressions: Service Date/Time: Wednesday, December 20, 2017 08:13 - CONCLUSION: Streaky density within the left lung base consistent with possible atelectasis and/or developing infiltrate. Trey Quiroga MD X-ray of the chest shows streaky density in the left lung consistent with probable atelectasis versus infiltrate, patient denies any cough or congestion, patient with most likely atelectasis. CT the abdomen and pelvis with IV contrast is significant for inflammation around the head of the pancreas as well as the second part of duodenum. There is a dilated pancreatic duct with numerous calcifications of the head of the pancreas consistent with chronic pancreatitis. Patient's lipase is elevated at 641. Patient will be admitted to the hospital for treatment of acute on chronic pancreatitis case reviewed with FP resident who accepts pt to their service Diagnosis Primary Impression: Acute recurrent pancreatitis Admitting Information Admitting Physician Requests: Observation Amy Pollard DO Dec 20, 2017 07:45
[2017-12-20 07:58] LABS: AUTOMATED NEUTROPHIL # 4.8 TH/MM3 (1.8-7.7); BASOPHIL # 0.1 TH/MM3 (0-0.2); BASOPHIL % 0.7 % (0.0-2.0); EOSINOPHIL % 0.4 % (0.0-4.0); HEMATOCRIT 33.6 % (35.0-46.0); HEMOGLOBIN 11.5 GM/DL (11.6-15.3); LYMPH % 26.1 % (9.0-44.0); MEAN CELL VOLUME 93.6 FL (80.0-100.0); MEAN CORPUSCULAR HEMOGLOBIN 31.9 PG (27.0-34.0); MEAN CORPUSCULAR HGB CONC 34.1 % (32.0-36.0); MEAN PLATELET VOLUME 7.5 FL (7.0-11.0); MONO % 10.2 % (0.0-8.0); MONOCYTE # 0.8 TH/MM3 (0-0.9); NEUT % 62.6 % (16.0-70.0); PLATELET COUNT 361 TH/MM3 (150-450); RED BLOOD COUNT 3.59 MIL/MM3 (4.00-5.30); RED CELL DISTRIBUTION WIDTH 16.2 % (11.6-17.2); WHITE BLOOD COUNT 7.6 TH/MM3 (4.0-11.0)
[2017-12-20 08:09] LABS: INTERNATIONAL NORMALIZED RATIO 1.1 RATIO; PROTHROMBIN TIME - PATIENT 11.3 SEC (9.8-11.6)
[2017-12-20 08:14] LABS: ALT (GPT) 26 U/L (10-53); AST (GOT) 46 U/L (15-37); BICARBONATE 21.6 MEQ/L (21.0-32.0); BLOOD UREA NITROGEN 15 MG/DL (7-18); CALCIUM 8.3 MG/DL (8.5-10.1); CHLORIDE 109 MEQ/L (98-107); CREATININE 0.77 MG/DL (0.50-1.00); GLOMERULAR FILTRATION RATE 74 ML/MIN (>89); GLUCOSE,RANDOM 90 MG/DL (74-106); SODIUM (NA) 142 MEQ/L (136-145)
[2017-12-20 08:18] LABS: ALKALINE PHOSPHATASE 83 U/L (45-117); TOTAL BILIRUBIN ADULT 0.3 MG/DL (0.2-1.0); TOTAL PROTEIN 6.5 GM/DL (6.4-8.2); TROPONIN I LESS THAN 0.02 NG/ML (0.02-0.05)
--- NOTE | 2017-12-20 08:34 | RADRPT ---
EXAM DATE/TIME: 12/20/2017 08:13 [facility] COMPARISON: CHEST SINGLE AP, October 25, 2017, 7:32. INDICATIONS : Left chest pain through to back starting this morning. MEDICAL HISTORY : Hypothyroidism. Hypertension. Gastroesophageal reflux disease. Coronary artery disease. Pancreatitis. Dysuria. Cerebral vascular accident. Inflammatory bowel disease. Arthritis. Breast cancer. SURGICAL HISTORY : Hysterectomy. Mastectomy, left. Cholecystectomy. [place]/ Sinus repair. ENCOUNTER: Initial ACUITY: 1 day PAIN SCORE: 8/10 LOCATION: Left chest FINDINGS: Streakiness is noted in the left lung base consistent with possible atelectasis and/or developing inf iltrate. The heart is stable. The right lung is clear. Old fractures of the left rib cage are noted. CONCLUSION: Streaky density within the left lung base consistent with possible atelectasis and/or developing infi ltrate. Trey Quiroga MD on December 20, 2017 at 8:30 Board Certified Radiologist. This report was verified electronically.
[2017-12-20] MEDS ORDERED: IOHEXOL 350 MG/ML 10 ML VIAL (for RAD DIAG) IVCONTRAST ONE (08:51)
--- NOTE | 2017-12-20 10:19 | RADRPT ---
EXAM DATE/TIME: 12/20/2017 08:46 [facility] COMPARISON: 11/30/2017, 11/20/2017 used for comparison. INDICATIONS : Abdominal pain. IV CONTRAST: 92 cc Omnipaque 350 (iohexol) IV ORAL CONTRAST: No oral contrast ingested. RADIATION DOSE: 5.93 CTDIvol (mGy) MEDICAL HISTORY : Carcinoma, breast. Cerebrovascular disease. Cardiovascular disease, Pancreatitis. SURGICAL HISTORY : Hysterectomy. Appendectomy. Cholecystectomy. ENCOUNTER: Initial ACUITY: 1 day PAIN SCALE: 6/10 LOCATION: Abdomen TECHNIQUE: Volumetric scanning of the abdomen and pelvis was performed. Using automated exposure control and ad justment of the mA and/or kV according to patient size, radiation dose was kept as low as reasonably achievable to obtain optimal diagnostic quality images. DICOM format image data is available electro nically for review and comparison. FINDINGS: CT Scan Abdomen/Pelvis demonstrates again a dilated pancreatic duct with a few calcifications of the pancreatic head. There is some inflammation around the head of the pancreas but also around the seco nd part of the duodenum raising the possibility of peptic ulcer disease. I do not see any free air o r obvious abscess. Diffuse small gallstones and noninflamed gallbladder. There are a few benign renal cysts. No solid liver mass identified. Portal vein is unremarkable. T here are multiple cysts scattered throughout the kidneys. There are multiple calcifications in the s pleen. There is no bowel wall thickening. There is no evidence of bowel obstruction. The bladder is unremarkable. There are bilateral hip arthroplasties. There is diverticulosis sigmoid colon. Multiple benign renal cysts. CONCLUSION: 1. Inflammation around the head of the pancreas but also around the second part of the duodenum raisi ng the possibility of peptic ulcer disease. There is dilated pancreatic duct, numerous calcification s at the head of the pancreas consistent with chronic pancreatitis. 2. Multiple benign renal and hepatic cysts. Juan Cartagena MD on December 20, 2017 at 9:11 Board Certified Radiologist. This report was verified electronically.
--- NOTE | 2017-12-20 10:54 | HHI.HP ---
[facility] Service Family Medicine Primary Care Physician Maxi Branch MD Admission Diagnosis acute pancreatitis Diagnoses: International Travel<30 Days: No Contact w/Intl Traveler<30days: No Known Affected Area: No History of Present Illness 72 yo F with PMH of chronic pancreatitis presenting with abdominal pain, nausea and vomiting that started around 3 AM on day of admission. Recently flew to [place] to see her sister and on her return flight started drinking more. Drinks mainly wine and whiskey. Has been drinking "a lot" since her 1 year ago. States she had 3-4 drinks of whiskey on day prior to admission. States she vomited 3-4 times overnight. She has had multiple hospitalizations for acute on chronic pancreatitis. (Alec Walker MD R1) Review of Systems Constitutional: DENIES: Fever, Weight gain, Weight loss, Chills Eyes: DENIES: Blurred vision Ears, nose, mouth, throat: DENIES: Throat pain, Running Nose Respiratory: DENIES: Cough, Wheezing, Sputum production Cardiovascular: DENIES: Chest pain Gastrointestinal: COMPLAINS OF: Abdominal pain (epigastric), Nausea, Vomiting, DENIES: Bloody stools, Constipation, Diarrhea Musculoskeletal: COMPLAINS OF: Joint pain (chronic) Integumentary: DENIES: Rash Hematologic/lymphatic: DENIES: Lymphadenopathy Neurologic: DENIES: Headache Psychiatric: DENIES: Confusion (Alec Walker MD R1) Past Family Social History Past Medical History R Hip fracture Sep Hip fracture last year breast cancer (left) - 7 years, tx'd at [place] w/radiation and surgery Hypertension Chronic Pancreatitis Hypothyroidism Depression Past Surgical History Hysterectomy Reported Medications Reported Meds & Active Scripts Active Synthroid (Levothyroxine Sodium) 75 Mcg Tab 75 Mcg PO DAILY@0600 Folic Acid 1 Mg Tablet 1 Mg PO DAILY Oyster Shell 250 mg + Vit D Tb (Calcium/Vitamin D) 250 Mg Calcium (625 Mg)-125 Unit Tablet 250 Mg PO TID Lopressor (Metoprolol Tartrate) 50 Mg Tab 50 Mg PO Q12HR Vitamin B-1 (Thiamine HCl) 100 Mg Tab 100 Mg PO DAILY 30 Days Creon (Pancrelipase) 3,000-9,500-15,000 Units Cap 1 Cap PO TIDPC Losartan (Losartan Potassium) 100 Mg Tab 100 Mg PO DAILY Thera/Beta-Carotene (Multiple Vitamin) 1 Tab Tab 1 Tab PO DAILY Nexium (Esomeprazole DR) 40 Mg Capdr 40 Mg PO DAILY (Alec Walker MD R1) Allergies: Coded Allergies: Sulfa (Sulfonamide Antibiotics) (Unverified Allergy, Intermediate, rash, ) Family History Non contributory Social History Lives in 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 Tearful/emotional during interview SKIN: No rashes, ecchymoses or lesions. Cool and dry. HEAD: Atraumatic. Normocephalic. No temporal or scalp tenderness. EYES: Pupils equal round and reactive. Extraocular motions intact. No scleral icterus. No injection or drainage. ENT: Nose without bleeding, purulent drainage or septal hematoma. Throat without erythema, tonsillar hypertrophy or exudate. Uvula midline. Airway patent. NECK: Trachea midline. No JVD or lymphadenopathy. Supple, nontender, no meningeal signs. CARDIOVASCULAR: Regular rate and rhythm without murmurs, gallops, or rubs. RESPIRATORY: Clear to auscultation. Breath sounds equal bilaterally. No wheezes , rales, or rhonchi. GASTROINTESTINAL: Abdomen soft, non-tender, nondistended. No hepato-splenomegaly , or palpable masses. No guarding. MUSCULOSKELETAL: Extremities without clubbing, cyanosis, or edema. No joint tenderness, effusion, or edema noted. No calf tenderness. Negative Homans sign bilaterally. NEUROLOGICAL: Awake and alert. Cranial nerves II through XII grossly intact. Motor and sensory grossly within normal limits. Five out of 5 muscle strength in all muscle groups. Normal speech. Laboratory Laboratory Tests Test 12/20/17 07:45 White Blood Count 7.6 Red Blood Count 3.59 Hemoglobin 11.5 Hematocrit 33.6 Mean Corpuscular Volume 93.6 Mean Corpuscular Hemoglobin 31.9 Mean Corpuscular Hemoglobin Concent 34.1 Red Cell Distribution Width 16.2 Platelet Count 361 Mean Platelet Volume 7.5 Neutrophils (%) (Auto) 62.6 Lymphocytes (%) (Auto) 26.1 Monocytes (%) (Auto) 10.2 Eosinophils (%) (Auto) 0.4 Basophils (%) (Auto) 0.7 Neutrophils # (Auto) 4.8 Lymphocytes # (Auto) 2.0 Monocytes # (Auto) 0.8 Eosinophils # (Auto) 0.0 Basophils # (Auto) 0.1 CBC Comment DIFF FINAL Differential Comment Prothrombin Time 11.3 Prothromb Time International Ratio 1.1 Activated Partial Thromboplast Time 23.8 Blood Urea Nitrogen 15 Creatinine 0.77 Random Glucose 90 Total Protein 6.5 Albumin 3.0 Calcium Level 8.3 Alkaline Phosphatase 83 Aspartate Amino Transf (AST/SGOT) 46 Alanine Aminotransferase (ALT/SGPT) 26 Total Bilirubin 0.3 Sodium Level 142 Potassium Level 3.5 Chloride Level 109 Carbon Dioxide Level 21.6 Anion Gap 11 Estimat Glomerular Filtration Rate 74 Total Creatine Kinase 40 Troponin I LESS THAN 0.02 Lipase 641 (Alec Walker MD R1) Result Diagram: 12/20/1774412/20/17744 Imaging Last 48 hours Impressions Chest X-Ray 12/20/17732 Signed Impressions: Service Date/Time: Wednesday, December 20, 2017 08:13 - CONCLUSION: Streaky density within the left lung base consistent with possible atelectasis and/or developing infiltrate. Trey Quiroga MD Abdomen/Pelvis CT 12/20/17732 Signed Impressions: Service Date/Time: Wednesday, December 20, 2017 08:46 - CONCLUSION: 1. Inflammation around the head of the pancreas but also around the second part of the duodenum raising the possibility of peptic ulcer disease. There is dilated pancreatic duct, numerous calcifications at the head of the pancreas consistent with chronic pancreatitis. 2. Multiple benign renal and hepatic cysts. Juan Cartagena MD (Alec Walker MD R1) Caprini VTE Risk Assessment Caprini VTE Risk Assessment: Mod/High Risk (score >= 2) Caprini Risk Assessment Model Point Value = 1 Point Value = 2 Point Value = 3 Point Value = 5 Age 41-60 Minor surgery BMI > 25 kg/m2 Swollen legs Varicose veins or History of unexplained or recurrent spontaneous Oral contraceptives or hormone replacement Sepsis (< 1 month) Serious lung disease, including pneumonia (< 1 month) Abnormal pulmonary function Acute myocardial infarction Congestive heart failure (< 1 month) History of inflammatory bowel disease Medical patient at bed rest Age 61-74 Arthroscopic surgery Major open surgery (> 45 min) Laparoscopic surgery (> 45 min) Malignancy Confined to bed (> 72 hours) Immobilizing plaster cast Central venous access Age >= 75 History of VTE Family history of VTE Factor V Leiden Prothrombin [id number] Lupus anticoagulant Anticardiolipin antibodies Elevated serum homocysteine Heparin-induced thrombocytopenia Other congenital or acquired thrombophilia Stroke (< 1 month) Elective arthroplasty Hip, pelvis, or leg fracture Acute spinal cord injury (< 1 month) Prophylaxis Regimen Total Risk Factor Score Risk Level Prophylaxis Regimen 0-1 Low Early ambulation 2 Moderate Order ONE of the following: *Sequential Compression Device (SCD) *Heparin 5000 units SQ BID 3-4 Higher Order ONE of the following medications: *Heparin 5000 units SQ TID *Enoxaparin/Lovenox 40 mg SQ daily (WT < 150 kg, CrCl > 30 mL/min) *Enoxaparin/Lovenox 30 mg SQ daily (WT < 150 kg, CrCl > 10-29 mL/min) *Enoxaparin/Lovenox 30 mg SQ BID (WT < 150 kg, CrCl > 30 mL/min) AND/OR *Sequential Compression Device (SCD) 5 or more Highest Order ONE of the following medications: *Heparin 5000 units SQ TID (Preferred with Epidurals) *Enoxaparin/Lovenox 40 mg SQ daily (WT < 150 kg, CrCl > 30 mL/min) *Enoxaparin/Lovenox 30 mg SQ daily (WT < 150 kg, CrCl > 10-29 mL/min) *Enoxaparin/Lovenox 30 mg SQ BID (WT < 150 kg, CrCl > 30 mL/min) AND *Sequential Compression Device (SCD) (Alec Walker MD R1) Assessment and Plan Assessment and Plan 72-year-old female with past medical history of pancreatitis secondary to alcohol abuse, hypertension, depression presenting to the ED with nausea, vomiting and abdominal pain. CT scan on admission showing signs of chronic pancreatitis. Lipase elevated at 641 on admission. Will admit for IVF, pain control. Code Status DNR Discussed Condition With Dr. Yin Scott (Alec Walker MD R1) Attending Attestation 72 yo patient seen and examined immediately after having been seen and examined by the medicine team and after their presentation to me. Pt. c/o abdominal pain, and had a recent hospitalization for pancreatitis 3 weeks ago. Continues to use EtOH. Pt. with long history of depression treated with Pristiq (venlafaxine) for many years with no real improvement. She is tearful and still grieving her husbands one year ago. Exam is as noted in resident note; I agree with the findings and the plan as documented. (Yin Scott MD) Problem List: (1) Acute recurrent pancreatitis ICD Codes: K85.90 - Acute pancreatitis without necrosis or infection, unspecified Status: Acute Plan: Patient with multiple hospitalizations for acute on chronic pancreatitis due to alcohol abuse Patient presenting with nausea, vomiting, epigastric pain CT scan on admission significant for signs of chronic pancreatitis Lipase elevated at 641 on admission Making patient n.p.o. Aggressive IV fluids with lactated Ringer's at 200 mL/h Ketorolac for pain Will advance diet once patient's nausea and vomiting have subsided Zofran as needed for nausea (2) HTN (hypertension) ICD Codes: I10 - Essential (primary) hypertension Status: Chronic Plan: Known history of hypertension Takes metoprolol tartrate 50 mg twice daily, losartan 100 mg daily Hypertensive in the ED up to 190/106 Continue home medications Vasotec IV as needed for hypertension (3) GERD (gastroesophageal reflux disease) ICD Codes: K21.9 - Gastro-esophageal reflux disease without esophagitis Plan: Known history of GERD Continue home pantoprazole 40 mg p.o. daily (4) Depression ICD Codes: F32.9 - Depression Status: Chronic Plan: Known history of depression, patient is tearful and emotional during the interview Denies suicidal ideation Has been on Pristiq inconsistently Will consider starting new antidepressant once patient is more stable (5) Hypothyroid ICD Codes: E03.9 - Hypothyroidism Status: Chronic Plan: Known history of hypothyroidism Continue home Synthroid (6) FEN Plan: Lactated Ringer's at 200 mL/h Will replete electrolytes as needed NPO for now, will slowly advance diet as patient's NV improve Lovenox for DVT prophylaxis (Alec Walker MD R1) Alec Walker MD R1 Dec 20, 2017 10:54 Yin Scott MD Dec 20, 2017 15:09
[2017-12-20] MEDS ORDERED: hydrALAZINE HCL 20 MG/ML VIAL IV PUSH ONE (12:00)
--- NOTE | 2017-12-20 12:20 | EKG ---
Date Performed: 12/20/2017 Time Performed: 08:15:53 PTAGE: 72 years EKG: Sinus rhythm MODERATE ST DEPRESSION ABNORMAL ECG INTERPRETATION BASED ON A DEFAULT AGE OF 42 YEARS NO PREVIOUS TRACING DOCTOR: Juan Hooks Interpretating Date/Time 12/20/2017 12:18:47
[2017-12-20] MEDS: LACTATED RINGER'S 1000 ML INJ 1,000 ML IV SCH ×3 (12:55→20:28)
[2017-12-20] MEDS ORDERED: DESV25TA PO (13:04)
[2017-12-20] MEDS: LIPASE/PROTEASE/AMYLASE (6,000/19,000/30,000) CAP PO SCH ×2 (14:39→18:30)
[2017-12-20] MEDS: ENOXAPARIN SODIUM 40 MG/0.4 ML SYRINGE SQ SCH (14:40)
[2017-12-20] MEDS: ONDANSETRON HCL 4 MG/2 ML VIAL IV PUSH PRN ×2 (14:55→23:48)
[2017-12-20] MEDS: SODIUM CHLORIDE 0.9% FLUSH 10 ML FLUSH IV FLUSH PRN ×2 (14:55→17:24)
[2017-12-20] MEDS ORDERED: FLUMAZENIL 0.5 MG/5 ML VIAL IV PUSH PRN (15:45)
[2017-12-20] MEDS ORDERED: LORazepam 2 MG/ML VIAL IV PUSH PRN ×4 (15:45)
[2017-12-20] MEDS ORDERED: LORazepam 1 MG TAB PO PRN (15:45)
[2017-12-20] MEDS ORDERED: LORazepam 2 MG TAB PO PRN (15:45)
[2017-12-20] MEDS: ENALAPRILAT 1.25 MG/ML VIAL IV PUSH PRN (17:24)
[2017-12-20] MEDS: SODIUM CHLORIDE 0.9% FLUSH 10 ML FLUSH IV FLUSH SCH (19:27)
[2017-12-20] MEDS: DIPHENOXYLATE/ATROPINE 2.5 MG/0.025 MG TAB PO PRN (20:16)
[2017-12-20] MEDS: METOPROLOL TARTRATE 50 MG TAB PO SCH (20:16)
[2017-12-20] MEDS: KETOROLAC TROMETHAMINE 30 MG/ML (IVP) VIAL IVP PRN (20:27)
[2017-12-21] VITALS (11 sets, daily range): BP systolic 79–187; BP diastolic 69–93; PULSE 60–77; RESP 16–20; TEMP 98.1–98.7; O2SAT 95–100
[2017-12-21] MEDS ORDERED: MORPHINE SULFATE 2 MG/ML SYRINGE IM PRN (00:15)
[2017-12-21] MEDS ORDERED: LORazepam 2 MG/ML VIAL IM PRN (00:15)
[2017-12-21] MEDS: LOPERAMIDE HCL 2 MG CAP PO PRN ×2 (00:44→13:18)
[2017-12-21] MEDS ORDERED: MORPHINE SULFATE 2 MG/ML SYRINGE IV PUSH PRN ×2 (01:30→09:45)
[2017-12-21] MEDS: DIPHENOXYLATE/ATROPINE 2.5 MG/0.025 MG TAB PO PRN ×2 (02:59→23:47)
[2017-12-21] MEDS: LACTATED RINGER'S 1000 ML INJ 1,000 ML IV SCH ×5 (03:00→23:47)
[2017-12-21] MEDS: KETOROLAC TROMETHAMINE 30 MG/ML (IVP) VIAL IVP PRN (03:58)
[2017-12-21 05:22] LABS: AUTOMATED NEUTROPHIL # 2.7 TH/MM3 (1.8-7.7); BASOPHIL % 0.6 % (0.0-2.0); EOSINOPHIL # 0.1 TH/MM3 (0-0.4); EOSINOPHIL % 1.6 % (0.0-4.0); HEMATOCRIT 28.1 % (35.0-46.0); HEMOGLOBIN 9.8 GM/DL (11.6-15.3); LYMPH % 35.8 % (9.0-44.0); LYMPHOCYTE # 1.9 TH/MM3 (1.0-4.8); MEAN CELL VOLUME 93.4 FL (80.0-100.0); MEAN CORPUSCULAR HEMOGLOBIN 32.4 PG (27.0-34.0); MEAN CORPUSCULAR HGB CONC 34.7 % (32.0-36.0); MEAN PLATELET VOLUME 7.7 FL (7.0-11.0); MONO % 11.2 % (0.0-8.0); MONOCYTE # 0.6 TH/MM3 (0-0.9); NEUT % 50.8 % (16.0-70.0); PLATELET COUNT 297 TH/MM3 (150-450); RED BLOOD COUNT 3.01 MIL/MM3 (4.00-5.30); RED CELL DISTRIBUTION WIDTH 15.9 % (11.6-17.2); WHITE BLOOD COUNT 5.3 TH/MM3 (4.0-11.0)
[2017-12-21] MEDS: LEVOTHYROXINE SODIUM 75 MCG TAB PO SCH (05:46)
[2017-12-21 05:47] LABS: BICARBONATE 22.5 MEQ/L (21.0-32.0); CALCIUM 8.1 MG/DL (8.5-10.1); CREATININE 0.64 MG/DL (0.50-1.00)
[2017-12-21] MEDS ORDERED: POTASSIUM CHLORIDE 20 MEQ CONTROLLED RELEASE TAB PO ONE (06:30)
[2017-12-21] MEDS: ONDANSETRON HCL 4 MG/2 ML VIAL IV PUSH PRN (06:54)
[2017-12-21] MEDS: THIAMINE HCL 100 MG TAB PO SCH (09:24)
[2017-12-21] MEDS: LOSARTAN 50 MG TAB PO SCH (09:24)
[2017-12-21] MEDS: LIPASE/PROTEASE/AMYLASE (6,000/19,000/30,000) CAP PO SCH ×3 (09:24→18:26)
[2017-12-21] MEDS: PANTOPRAZOLE SOD 40 MG DELAYED RELEASE TAB PO SCH (09:24)
[2017-12-21] MEDS: METOPROLOL TARTRATE 50 MG TAB PO SCH ×2 (09:24→20:34)
[2017-12-21] MEDS: FOLIC ACID 1 MG TAB PO SCH (09:24)
[2017-12-21] MEDS: SODIUM CHLORIDE 0.9% FLUSH 10 ML FLUSH IV FLUSH SCH ×3 (09:24→20:34)
--- NOTE | 2017-12-21 09:54 | HHI.FPPN ---
Subjective Remarks No acute events overnight. Patient had diarrhea last night but has not had any for several hours at time of interview. Denies any blood in her stool, black or tarry stools. She also states that her gastric pain has improved but is still present. She also has not had any nausea or vomiting since yesterday and is developing an appetite. Denies chest pain, shortness of breath. We discussed antidepressant options and she is open to trying Zoloft. Discussed the importance of avoiding alcohol to prevent future pancreatitis episodes (Alec Walker MD R1) Objective Vitals Vital Signs Date Time Temp Pulse Resp B/P (MAP) Pulse Ox O2 Delivery O2 Flow Rate FiO2 12/21/17 08:38 99 21 12/21/17 08:15 98.1 61 20 169/87 (114) 99 12/21/17 05:14 98.3 70 17 159/86 (110) 98 12/21/17 03:44 21 12/21/17 03:36 98.6 70 16 178/93 (121) 99 12/21/17 00:43 98.5 65 18 167/81 (109) 99 12/20/17 23:39 98.4 69 16 163/85 (111) 99 12/20/17 20:15 83 98 12/20/17 19:38 98.5 92 16 156/71 (99) 100 12/20/17 16:43 98.0 82 18 184/88 (120) 99 12/20/17 12:56 98.6 82 18 157/89 (111) 100 12/20/17 12:24 12/20/17 12:15 86 18 169/76 (107) 99 Room Air 12/20/17 11:54 75 18 186/93 (124) 99 Room Air 12/20/17 11:30 77 18 190/106 (134) 100 Room Air I/O 12/20/17 12/20/17 12/20/17 12/21/17 12/21/17 12/21/17 07:00 15:00 23:00 07:00 15:00 23:00 Intake Total 1000 ml 2100 ml Output Total 5 ml Balance 1000 ml 2095 ml Intake Oral 100 ml IV Total 1000 ml 2000 ml Output Stool Total 5 ml # Voids 4 3 # Bowel Movements 4 (Alec Walker MD R1) Result Diagram: 4/42412/21/17424 Objective Remarks GENERAL: Well-nourished, well-developed patient. Resting in bed comfortably in no acute distress SKIN: Warm and dry. No rash. EYES: No scleral icterus. No injection or drainage. PERRLA. EOMI. HENT: Normocephalic. Atraumatic. MMM. NECK: No visible JVD or lymphadenopathy. CARDIOVASCULAR: Warm and well perfused. Regular rate and rhythm with no murmurs appreciated RESPIRATORY: Normal respiratory effort. Clear to auscultation bilaterally with no wheezes appreciated GASTROINTESTINAL: Abdomen nondistended. Mild epigastric tenderness to palpation. No rebound tenderness or guarding. Hyperactive bowel sounds MUSCULOSKELETAL: Strength grossly WNL. No peripheral edema appreciated BACK: Without obvious deformity. NEURO/PSYCH: Afocal. Awake, alert, and oriented x3. (Alec Walker MD R1) A/P Assessment and Plan 72-year-old female with past medical history of pancreatitis secondary to alcohol abuse, hypertension, depression presenting to the ED with nausea, vomiting and abdominal pain. CT scan on admission showing signs of chronic pancreatitis. Lipase elevated at 641 on admission. Will admit for IVF, pain control. Discharge Planning Likely in 1-2 days pending improvement in nausea vomiting, tolerating diet and pain control (Alec Walker MD R1) Attending Attestation Patient seen and examined and discussed with Drs. Patt Scott and Desirae Walker. Case reviewed and discussed with the resident team. Agree with physical findings and the plan of care as discussed with me and documented in the resident note. (Yin Scott MD) Problem List: (1) Acute recurrent pancreatitis ICD Codes: K85.90 - Acute pancreatitis without necrosis or infection, unspecified Status: Acute Plan: Patient with multiple hospitalizations for acute on chronic pancreatitis due to alcohol abuse Patient presented with nausea, vomiting, epigastric pain CT scan on admission significant for signs of chronic pancreatitis Lipase elevated at 641 on admission Advancing diet to clear liquids Continuing aggressive IV fluids with lactated Ringer's at 200 mL/h Lipase is normalized to 343 Morphine IV as needed for pain, currently well controlled Zofran as needed for nausea (2) HTN (hypertension) ICD Codes: I10 - Essential (primary) hypertension Status: Chronic Plan: Known history of hypertension Takes metoprolol tartrate 50 mg twice daily, losartan 100 mg daily Hypertensive to 178/93 overnight Continue home medications, will monitor as pain improves Vasotec IV as needed for hypertension (3) Depression ICD Codes: F32.9 - Depression Status: Chronic Plan: Known history of depression, patient is tearful and emotional during the interview Denies suicidal ideation Has been on Pristiq inconsistently Starting Zoloft 50 mg p.o. daily (4) GERD (gastroesophageal reflux disease) ICD Codes: K21.9 - Gastro-esophageal reflux disease without esophagitis Plan: Known history of GERD Continue home pantoprazole 40 mg p.o. daily (5) Hypokalemia ICD Codes: E87.6 - Hypokalemia Status: Acute Plan: Patient noted to be hypokalemic with a potassium of 2.8 on 12/21 Repleting with 60 mEq now and 40 mEq at noon Repeat BMP this afternoon (6) Diarrhea ICD Codes: R19.7 - Diarrhea, unspecified Status: Acute Plan: Patient had multiple episodes of diarrhea yesterday Denies any blood in stool, black or tarry stools C. difficile was negative Started Lomotil on 12/20, symptoms have improved on 12/21 We will continue to monitor. Will consider Hemoccult if she can seen used to have diarrhea (7) Hypothyroid ICD Codes: E03.9 - Hypothyroidism Status: Chronic Plan: Known history of hypothyroidism Continue home Synthroid (8) FEN Plan: Lactated Ringer's at 200 mL/h Will replete electrolytes as needed Clear liquid diet, will slowly advance as patient tolerates Lovenox for DVT prophylaxis (Alec Walker MD R1) Alec Walker MD R1 Dec 21, 2017 09:54 Yin Scott MD Dec 21, 2017 11:30
[2017-12-21] MEDS: SERTRALINE HCL 50 MG TAB PO SCH (10:38)
[2017-12-21] MEDS ORDERED: POTASSIUM CHLORIDE 10 MEQ CAP PO ONE (12:30)
[2017-12-21] MEDS: ENOXAPARIN SODIUM 40 MG/0.4 ML SYRINGE SQ SCH (13:18)
[2017-12-21] MEDS ORDERED: ACETAMINOPHEN 325 MG TAB PO PRN (14:15)
--- NOTE | 2017-12-21 16:36 | EKG ---
Date Performed: 12/20/2017 Time Performed: 23:37:08 PTAGE: 72 years EKG: Sinus rhythm NORMAL ECG PREVIOUS TRACING 12/20/17 Since the previous tracing, no significant change noted DOCTOR: Abisai Fair Interpretating Date/Time 12/21/2017 16:31:19
[2017-12-21 17:31] LABS: BICARBONATE 22.5 MEQ/L (21.0-32.0); CALCIUM 8.7 MG/DL (8.5-10.1); CREATININE 0.73 MG/DL (0.50-1.00)
[2017-12-21] MEDS: traMADol HCL 50 MG TAB PO PRN (20:34)
[2017-12-21] MEDS: ENALAPRILAT 1.25 MG/ML VIAL IV PUSH PRN (21:56)
[2017-12-21] MEDS: LORazepam 1 MG TAB PO PRN (22:15)
[2017-12-22] VITALS (7 sets, daily range): BP systolic 148–186; BP diastolic 77–84; PULSE 63–75; RESP 16–20; TEMP 98.5–99; O2SAT 95–98
[2017-12-22] MEDS: LACTATED RINGER'S 1000 ML INJ 1,000 ML IV SCH ×2 (05:07→09:59)
[2017-12-22] MEDS: traMADol HCL 50 MG TAB PO PRN (05:07)
[2017-12-22] MEDS: LEVOTHYROXINE SODIUM 75 MCG TAB PO SCH (05:07)
[2017-12-22 07:19] LABS: AUTOMATED NEUTROPHIL # 3.4 TH/MM3 (1.8-7.7); BASOPHIL % 0.6 % (0.0-2.0); EOSINOPHIL # 0.1 TH/MM3 (0-0.4); HEMATOCRIT 28.4 % (35.0-46.0); HEMOGLOBIN 9.9 GM/DL (11.6-15.3); LYMPH % 24.6 % (9.0-44.0); LYMPHOCYTE # 1.4 TH/MM3 (1.0-4.8); MEAN CELL VOLUME 92.6 FL (80.0-100.0); MEAN CORPUSCULAR HEMOGLOBIN 32.4 PG (27.0-34.0); MEAN PLATELET VOLUME 7.8 FL (7.0-11.0); MONO % 12.5 % (0.0-8.0); MONOCYTE # 0.7 TH/MM3 (0-0.9); NEUT % 60.3 % (16.0-70.0); PLATELET COUNT 281 TH/MM3 (150-450); RED BLOOD COUNT 3.07 MIL/MM3 (4.00-5.30); RED CELL DISTRIBUTION WIDTH 16.2 % (11.6-17.2); WHITE BLOOD COUNT 5.6 TH/MM3 (4.0-11.0)
[2017-12-22 07:56] LABS: BICARBONATE 23.3 MEQ/L (21.0-32.0); CREATININE 0.6 MG/DL (0.50-1.00)
[2017-12-22] MEDS: LOSARTAN 50 MG TAB PO SCH (08:03)
[2017-12-22] MEDS: PANTOPRAZOLE SOD 40 MG DELAYED RELEASE TAB PO SCH (08:03)
[2017-12-22] MEDS: THIAMINE HCL 100 MG TAB PO SCH (08:03)
[2017-12-22] MEDS: SERTRALINE HCL 50 MG TAB PO SCH (08:03)
[2017-12-22] MEDS: METOPROLOL TARTRATE 50 MG TAB PO SCH (08:03)
[2017-12-22] MEDS: FOLIC ACID 1 MG TAB PO SCH (08:03)
[2017-12-22] MEDS: LIPASE/PROTEASE/AMYLASE (6,000/19,000/30,000) CAP PO SCH ×2 (09:58→12:44)
--- NOTE | 2017-12-22 10:00 | HHI.FPPN ---
Subjective Remarks No acute events overnight. Patient states her diarrhea is resolving. Also states her abdominal pain is improved. She is still expressing some nausea but has had no vomiting. She expressed desire to attempt to advance her diet. Denies chest pain, shortness of breath. (Alec Walker MD R1) Objective Vitals Vital Signs Date Time Temp Pulse Resp B/P (MAP) Pulse Ox O2 Delivery O2 Flow Rate FiO2 12/22/17 07:56 98.6 72 20 165/79 (107) 98 12/22/17 06:21 99.0 63 16 158/81 (106) 96 12/22/17 04:37 98.7 75 18 186/82 (116) 96 12/22/17 00:27 98.7 68 20 163/77 (105) 95 12/21/17 21:48 61 18 175/81 (112) 95 12/21/17 20:35 77 18 97 12/21/17 20:07 98.7 75 16 180/85 (116) 98 12/21/17 20:04 97 21 12/21/17 16:51 98.4 65 20 187/91 (123) 98 12/21/17 11:26 98.5 60 20 148/69 (95) 100 I/O 12/21/17 12/21/17 12/21/17 12/22/17 12/22/17 12/22/17 07:00 15:00 23:00 07:00 15:00 23:00 Intake Total 2100 ml 1000 ml 2250 ml Output Total 5 ml Balance 2095 ml 1000 ml 2250 ml Intake Oral 100 ml 250 ml IV Total 2000 ml 1000 ml 2000 ml Output Stool Total 5 ml # Voids 3 1 2 3 # Bowel Movements 1 1 1 (Alec Walker MD R1) Result Diagram: 12/22/17 0550 12/22/17 0550 Objective Remarks GENERAL: Well-nourished, well-developed patient. Resting in bed comfortably in no acute distress SKIN: Warm and dry. No rash. EYES: No scleral icterus. No injection or drainage. PERRLA. EOMI. HENT: Normocephalic. Atraumatic. MMM. NECK: No visible JVD or lymphadenopathy. CARDIOVASCULAR: Warm and well perfused. Regular rate and rhythm with no murmurs appreciated RESPIRATORY: Normal respiratory effort. Clear to auscultation bilaterally with no wheezes appreciated GASTROINTESTINAL: Abdomen nondistended. No tenderness to palpation. No rebound tenderness or guarding. Hyperactive bowel sounds MUSCULOSKELETAL: Strength grossly WNL. No peripheral edema appreciated BACK: Without obvious deformity. NEURO/PSYCH: Afocal. Awake, alert, and oriented x3. (Alec Walker MD R1) A/P Assessment and Plan 72-year-old female with past medical history of pancreatitis secondary to alcohol abuse, hypertension, depression presenting to the ED with nausea, vomiting and abdominal pain. CT scan on admission showing signs of chronic pancreatitis. Lipase elevated at 641 on admission. Admitted for IVF and pain control. Patient has gradually improved symptomatically and is tolerating a liquid diet with near resolution of the abdominal pain. Likely safe for discharge in the near future. Discharge Planning Possibly today if patient tolerates meals with no vomiting. (Alec Walker MD R1) Attending Attestation Patient seen and examined, discussed with the medicine team and with her nurse. She has had no loose stools or vomiting and no complaints of abdominal pain this morning. She does want to try to advance her diet. She is hopeful that the new antidepressant medication, namely Zoloft, will help with her depression. She understands that this current dose of Zoloft will likely need to be titrated up to be effective. I agree with the plan to give her a regular diet at noon today and if she tolerates that she may be able to go home this afternoon. She does have a primary care doctor, Dr. Branch, to follow-up with. (Yin Scott MD) Problem List: (1) Acute recurrent pancreatitis ICD Codes: K85.90 - Acute pancreatitis without necrosis or infection, unspecified Status: Acute Plan: Patient with multiple hospitalizations for acute on chronic pancreatitis due to alcohol abuse Patient presented with nausea, vomiting, epigastric pain CT scan on admission significant for signs of chronic pancreatitis Lipase elevated at 641 on admission, normalized to 343 on 12/21 Advancing diet to full liquids Decreasing IV fluids to 100 mL/h Pain well-controlled on p.o. tramadol Zofran as needed for nausea (2) HTN (hypertension) ICD Codes: I10 - Essential (primary) hypertension Status: Chronic Plan: Known history of hypertension Takes metoprolol tartrate 50 mg twice daily, losartan 100 mg daily Hypertensive to 186/82 overnight Continue home medications, elevated blood pressures could be secondary to alcohol withdrawal We will need follow-up as an outpatient Vasotec IV as needed for hypertension (3) Depression ICD Codes: F32.9 - Depression Status: Chronic Plan: Known history of depression, patient is tearful and emotional during the interview Denies suicidal ideation Has been on Pristiq inconsistently Started Zoloft 50 mg p.o. daily on 12/21. Tolerating well (4) Diarrhea ICD Codes: R19.7 - Diarrhea, unspecified Status: Acute Plan: Patient had multiple episodes of diarrhea yesterday Denies any blood in stool, black or tarry stools C. difficile was negative Started Lomotil on 12/20, Hemoccult on 12/21 was negative Symptoms currently resolving (5) GERD (gastroesophageal reflux disease) ICD Codes: K21.9 - Gastro-esophageal reflux disease without esophagitis Plan: Known history of GERD Continue home pantoprazole 40 mg p.o. daily (6) Hypokalemia ICD Codes: E87.6 - Hypokalemia Status: Acute Plan: Patient noted to be hypokalemic with a potassium of 2.8 on 12/21 Supplemented with 100 meq on 12/21 Currently resolved (7) Hypothyroid ICD Codes: E03.9 - Hypothyroidism Status: Chronic Plan: Known history of hypothyroidism Continue home Synthroid (8) FEN Plan: Lactated Ringer's at 100 mL/h Will replete electrolytes as needed Full liquid diet, will advance as patient tolerates Lovenox for DVT prophylaxis (Alec Walker MD R1) Alec Walker MD R1 Dec 22, 2017 10:00 Yin Scott MD Dec 22, 2017 11:16
[2017-12-22] MEDS: LORazepam 1 MG TAB PO PRN (11:28)
[2017-12-22] MEDS: ENOXAPARIN SODIUM 40 MG/0.4 ML SYRINGE SQ SCH (12:44)
[2017-12-22] MEDS ORDERED: hydrALAZINE HCL 10 MG TAB PO ONE (14:00)
[2017-12-22] MEDS ORDERED: ZOLO50TA PO (14:06)
--- NOTE | 2017-12-22 14:06 | HHI.DCPOC ---
Discharge Care Plan Diagnosis: (1) Hypokalemia (2) Acute recurrent pancreatitis (3) HTN (hypertension) Goals to Promote Your Health * To prevent worsening of your condition and complications * To maintain your health at the optimal level Directions to Meet Your Goals Take your medications as prescribed Follow your dietary instruction Follow activity as directed Keep your appointments as scheduled Take your immunizations and boosters as scheduled If your symptoms worsen call your PCP, if no PCP go to Urgent Care Center or Emergency Room Smoking is Dangerous to Your Health. Avoid second hand smoke Call the 24-hour hour crisis hotline for domestic abuse at Alec Walker MD R1 Dec 22, 2017 14:06
== END 2017-12-22 15:07 | disposition home or self-care (01) ==
LOC: NEPC 07:20 → NEDA 10:32 → NEPFCDU 12:35
PROVIDERS: ADMIT Family Medicine; ATTEND Family Medicine
DX: K85.20 Alcohol induced acute pancreatitis without necrosis or infection (principal); E87.6 Hypokalemia; K57.32 Diverticulitis of large intestine without perforation or abscess without bleeding; R19.7 Diarrhea, unspecified; I25.10 Atherosclerotic heart disease of native coronary artery without angina pectoris; I10 Essential (primary) hypertension; E03.9 Hypothyroidism, unspecified; K21.9 Gastro-esophageal reflux disease without esophagitis; K76.89 Other specified diseases of liver; R94.31 Abnormal electrocardiogram [ECG] [EKG]; Q61.02 Congenital multiple renal cysts; F32.9 Major depressive disorder, single episode, unspecified; F41.9 Anxiety disorder, unspecified; M19.90 Unspecified osteoarthritis, unspecified site; H91.90 Unspecified hearing loss, unspecified ear; Z79.899 Other long term (current) drug therapy; Z85.3 Personal history of malignant neoplasm of breast; Z86.73 Personal history of transient ischemic attack (TIA), and cerebral infarction without residual deficits
CPT/HCPCS: 71045; 74177; 80048; 80053; 80307; 82272; 82550; 83690; 84484; 85025; 85610; 85730; 87493; 93005; 96361; 96374; 96375; 96376; 99285; G0378; J0360; J1650; J1885; J2270; J2405; J7030; J7120; Q9967

== ENCOUNTER 2018-02-13 10:31 | Emergency (ER) | payer BC, MEDICARE ==
[~2018-02-13 10:31] MED LIST changes: -PERC5TAB12 PO; +ZOLO50TA PO
[2018-02-13 10:42] VITALS: BP 198/86; PULSE 88; RESP 19; TEMP 98.9; O2SAT 98
[2018-02-13] MEDS ORDERED: SODIUM CHLOR 0.9% 1000 ML INJ 1,000 ML IV SCH (10:42)
[2018-02-13] MEDS ORDERED: SODIUM CHLORIDE 0.9% FLUSH 10 ML FLUSH IV FLUSH PRN (10:45)
[2018-02-13] MEDS ORDERED: MORPHINE SULFATE 4 MG/ML INJ IV PUSH ONE (10:45)
[2018-02-13] MEDS ORDERED: ONDANSETRON ODT 4 MG TAB PO ONE (10:45)
--- NOTE | 2018-02-13 10:52 | PD ---
HPI Chief Complaint: Complaint Time Seen by Provider: 10:33 Travel History International Travel<30 days: No Contact w/Intl Traveler<30days: No Traveled to known affect area: No History of Present Illness HPI The patient is a 72-year-old female who presents to the emergency department via EMS for suprapubic abdominal discomfort that started this morning. The patient complains of dysuria, frequency, and urgency without any visible hematuria. The pain is located in the lower aspect of the abdomen, nonradiating, associated mild nausea without any vomiting. The patient believes she has a UTI. The patient does have a history of pancreatitis secondary to alcohol abuse. Previous abdominal surgeries include total hysterectomy. She denies any subsequent vaginal bleeding or discharge. The patient denies any fever, chills, or sweats. Symptoms are moderate. There are no current alleviating factors. The patient does live at home, uses a walker to ambulate secondary to previous hip fracture, states she is unable to ambulate to the bathroom and she does not have her walker. PFSH Past Medical History Hx Anticoagulant Therapy: Yes Arthritis: Yes Asthma: No Autoimmune Disease: Yes (RA) Blood Disorders: No Anxiety: Yes Depression: Yes Heart Rhythm Problems: Yes (AFIB) Cancer: Yes (LEFT BREAST ) Cardiovascular Problems: Yes High Cholesterol: No Chemotherapy: No Chest Pain: Yes Congestive Heart Failure: No COPD: No Cerebrovascular Accident: Yes (2016) Coronary Artery Disease: Yes Diabetes: No Diminished Hearing: Yes Endocrine: Yes (CHRONIC PANCREATITIS) Gastrointestinal Disorders: Yes (GASTRIC ULCERS) GERD: Yes Genitourinary: No Headaches: Yes Hiatal Hernia: No Heparin Induced Thrombocytopen: No Hypertension: Yes Immune Disorder: Yes Implanted Vascular Access Dvce: No Kidney Stones: No Medical other: Yes (FLUID RETENTION-ACID REFLUX) Musculoskeletal: No Neurologic: Yes (SEIZURE ) Psychiatric: Yes Reproductive: No Respiratory: No Immunizations Current: Yes Migraines: Yes Pancreatitis: Yes Radiation Therapy: Yes Renal Failure: No Seizures: Yes (history of one) Sickle Cell Disease: No Sleep Apnea: No Thyroid Disease: Yes (HYPOTHYROID) Ulcer: Yes Tetanus Vaccination: < 5 Years Menopausal: Yes : 2 Para: 1 Miscarriage: 1 Past Surgical History Abdominal Surgery: Yes (HYSTERECTOMY) AICD: No Appendectomy: Yes Arteriovenous Shunt: No Body Medical Devices: L hip hardware in place , PT IS NOT SURE Cardiac Surgery: No Cholecystectomy: Yes Ear Surgery: No Endocrine Surgery: No Eye Surgery: No Genitourinary Surgery: No Gynecologic Surgery: Yes (TOTAL HYSTERECTOMY) Hysterectomy: Yes Insulin Pump: No Joint Replacement: No Neurologic Surgery: No Oral Surgery: No Pacemaker: No Thoracic Surgery: No Other Surgery: Yes (COLDWELL/SINUS REPAIR, LEFT LUMPECTOMY) Social History Alcohol Use: Yes (DAILY LIQUOR/WINE USE) Tobacco Use: No Substance Use: No Allergies-Medications (Allergen,Severity, Reaction): Coded Allergies: Sulfa (Sulfonamide Antibiotics) (Unverified Allergy, Intermediate, rash, ) Penicillins (Verified Allergy, Unknown, 02/13/18) Reported Meds & Prescriptions Reported Meds & Active Scripts Active Zoloft (Sertraline HCl) 50 Mg Tab 50 Mg PO DAILY Synthroid (Levothyroxine Sodium) 75 Mcg Tab 75 Mcg PO DAILY@0600 Folic Acid 1 Mg Tablet 1 Mg PO DAILY Oyster Shell 250 mg + Vit D Tb (Calcium/Vitamin D) 250 Mg Calcium (625 Mg)-125 Unit Tablet 250 Mg PO TID Lopressor (Metoprolol Tartrate) 50 Mg Tab 50 Mg PO Q12HR Vitamin B-1 (Thiamine HCl) 100 Mg Tab 100 Mg PO DAILY 30 Days Creon (Pancrelipase) 3,000-9,500-15,000 Units Cap 1 Cap PO TIDPC Losartan (Losartan Potassium) 100 Mg Tab 100 Mg PO DAILY Thera/Beta-Carotene (Multiple Vitamin) 1 Tab Tab 1 Tab PO DAILY Nexium (Esomeprazole DR) 40 Mg Capdr 40 Mg PO DAILY Review of Systems Except as stated in HPI: all other systems reviewed are Neg General / Constitutional: No: Fever Cardiovascular: No: Chest Pain or Discomfort Respiratory: No: Shortness of Breath Gastrointestinal: Positive: Nausea, Abdominal Pain, No: Vomiting, Diarrhea Genitourinary: Positive: Urgency, Frequency, Dysuria, Pelvic Pain, No: Hematuria Skin: No Rash Physical Exam Narrative GENERAL: Awake, alert, pleasant 72-year-old female who appears her stated age and is in no acute respiratory distress. SKIN: Focused skin assessment warm/dry. HEAD: Atraumatic. Normocephalic. EYES: No injection or drainage. ENT: No nasal bleeding or discharge. Mucous membranes pink and moist. NECK: Trachea midline. No JVD. CARDIOVASCULAR: Regular rate and rhythm. No murmur appreciated. RESPIRATORY: No accessory muscle use. Clear to auscultation. Breath sounds equal bilaterally. GASTROINTESTINAL: Abdomen soft, suprapubic tenderness. No guarding or rigidity. MUSCULOSKELETAL: No obvious deformities. No clubbing. No cyanosis. No edema. NEUROLOGICAL: Awake and alert. No obvious cranial nerve deficits. Motor grossly within normal limits. Normal speech. PSYCHIATRIC: Appropriate mood and affect; insight and judgment normal. Data Data Last Documented VS Vital Signs Date Time Temp Pulse Resp B/P (MAP) Pulse Ox O2 Delivery O2 Flow Rate FiO2 02/13/18 11:27 98 02/13/18 10:42 98.9 88 19 198/86 (123) Orders Orders Complete Blood Count With Diff (02/13/18 10:42) Comprehensive Metabolic Panel (02/13/18 10:42) Lipase (02/13/18 10:42) Lactic Acid (02/13/18 10:42) Urinalysis - C+S If Indicated (02/13/18 10:42) Iv Access Insert/Monitor (02/13/18 10:42) Ecg Monitoring (02/13/18 10:42) Oximetry (02/13/18 10:42) Morphine Inj (Morphine Inj) (02/13/18 10:45) Sodium Chlor 0.9% 1000 Ml Inj (Ns 1000 M (02/13/18 10:42) Sodium Chloride 0.9% Flush (Ns Flush) (02/13/18 10:45) Ondansetron Odt (Zofran Odt) (02/13/18 10:45) Alcohol (Ethanol) (02/13/18 10:42) Ct Abd/Pel W/O Iv Contrast (02/13/18 ) Diphenhydramine Inj (Benadryl Inj) (02/13/18 13:30) Diphenhydramine Inj (Benadryl Inj) (02/13/18 14:45) Lorazepam Inj (Ativan Inj) (02/13/18 14:45) Labs Laboratory Tests Test 02/13/18 11:50 02/13/18 11:55 Urine Color YELLOW Urine Turbidity HAZY Urine pH 6.0 Urine Specific [place] 1.009 Urine Protein 30 mg/dL Urine Glucose (UA) NEG mg/dL Urine Ketones NEG mg/dL Urine Occult Blood MOD Urine Nitrite NEG Urine Bilirubin NEG Urine Urobilinogen 2.0 mg/dL Urine Leukocyte Esterase NEG Urine RBC LESS THAN 1 /hpf Urine WBC 1 /hpf Urine Squamous Epithelial Cells 2 /hpf Urine Bacteria RARE /hpf Microscopic Urinalysis Comment CULT NOT INDICATED Lactic Acid Level 1.7 mmol/L White Blood Count 7.8 TH/MM3 Red Blood Count 4.01 MIL/MM3 Hemoglobin 12.9 GM/DL Hematocrit 38.0 % Mean Corpuscular Volume 94.6 FL Mean Corpuscular Hemoglobin 32.2 PG Mean Corpuscular Hemoglobin Concent 34.1 % Red Cell Distribution Width 17.5 % Platelet Count 390 TH/MM3 Mean Platelet Volume 7.0 FL Neutrophils (%) (Auto) 62.6 % Lymphocytes (%) (Auto) 27.9 % Monocytes (%) (Auto) 8.5 % Eosinophils (%) (Auto) 0.5 % Basophils (%) (Auto) 0.5 % Neutrophils # (Auto) 4.9 TH/MM3 Lymphocytes # (Auto) 2.2 TH/MM3 Monocytes # (Auto) 0.7 TH/MM3 Eosinophils # (Auto) 0.0 TH/MM3 Basophils # (Auto) 0.0 TH/MM3 CBC Comment DIFF FINAL Differential Comment Blood Urea Nitrogen 7 MG/DL Creatinine 0.87 MG/DL Random Glucose 78 MG/DL Total Protein 8.0 GM/DL Albumin 3.6 GM/DL Calcium Level 8.7 MG/DL Alkaline Phosphatase 140 U/L Aspartate Amino Transf (AST/SGOT) 65 U/L Alanine Aminotransferase (ALT/SGPT) 28 U/L Total Bilirubin 0.8 MG/DL Sodium Level 137 MEQ/L Potassium Level 3.3 MEQ/L Chloride Level 101 MEQ/L Carbon Dioxide Level 20.6 MEQ/L Anion Gap 15 MEQ/L Estimat Glomerular Filtration Rate 64 ML/MIN Lipase 286 U/L Ethyl Alcohol Level LESS THAN 3 MG/DL [facility] Medical Decision Making Medical Screen Exam Complete: Yes Emergency Medical Condition: Yes Medical Record Reviewed: Yes Interpretation(s) Laboratory Tests Test 02/13/18 11:50 02/13/18 11:55 Urine Color YELLOW Urine Turbidity HAZY Urine pH 6.0 Urine Specific [place] 1.009 Urine Protein 30 mg/dL Urine Glucose (UA) NEG mg/dL Urine Ketones NEG mg/dL Urine Occult Blood MOD Urine Nitrite NEG Urine Bilirubin NEG Urine Urobilinogen 2.0 mg/dL Urine Leukocyte Esterase NEG Urine RBC LESS THAN 1 /hpf Urine WBC 1 /hpf Urine Squamous Epithelial Cells 2 /hpf Urine Bacteria RARE /hpf Microscopic Urinalysis Comment CULT NOT INDICATED Lactic Acid Level 1.7 mmol/L White Blood Count 7.8 TH/MM3 Red Blood Count 4.01 MIL/MM3 Hemoglobin 12.9 GM/DL Hematocrit 38.0 % Mean Corpuscular Volume 94.6 FL Mean Corpuscular Hemoglobin 32.2 PG Mean Corpuscular Hemoglobin Concent 34.1 % Red Cell Distribution Width 17.5 % Platelet Count 390 TH/MM3 Mean Platelet Volume 7.0 FL Neutrophils (%) (Auto) 62.6 % Lymphocytes (%) (Auto) 27.9 % Monocytes (%) (Auto) 8.5 % Eosinophils (%) (Auto) 0.5 % Basophils (%) (Auto) 0.5 % Neutrophils # (Auto) 4.9 TH/MM3 Lymphocytes # (Auto) 2.2 TH/MM3 Monocytes # (Auto) 0.7 TH/MM3 Eosinophils # (Auto) 0.0 TH/MM3 Basophils # (Auto) 0.0 TH/MM3 CBC Comment DIFF FINAL Differential Comment Blood Urea Nitrogen 7 MG/DL Creatinine 0.87 MG/DL Random Glucose 78 MG/DL Total Protein 8.0 GM/DL Albumin 3.6 GM/DL Calcium Level 8.7 MG/DL Alkaline Phosphatase 140 U/L Aspartate Amino Transf (AST/SGOT) 65 U/L Alanine Aminotransferase (ALT/SGPT) 28 U/L Total Bilirubin 0.8 MG/DL Sodium Level 137 MEQ/L Potassium Level 3.3 MEQ/L Chloride Level 101 MEQ/L Carbon Dioxide Level 20.6 MEQ/L Anion Gap 15 MEQ/L Estimat Glomerular Filtration Rate 64 ML/MIN Lipase 286 U/L Ethyl Alcohol Level LESS THAN 3 MG/DL Last Impressions Abdomen/Pelvis CT 02/13/18 0000 Signed Impressions: CONCLUSION: 1. The previously noted findings of acute pancreatitis has significantly impro jose luis on today's examination. The inflammatory changes noted around the body and tail the pancreas have resolved. There has been a reduction in the overall prom inence of the pancreatic head since the prior study. However there continues to be some prominence of the pancreatic head still on today's examination. No magdy iary tract obstruction is seen. This most likely represents resolving pancreati tis. 2. There is evidence of chronic pancreatitis with multiple calcifications thro ughout the pancreas. 3. Gallstones in the gallbladder without biliary tract obstruction. 4. Scattered diverticulosis of the sigmoid colon without inflammatory changes. 5. No other new or significant changes compared to the prior study. Differential Diagnosis Differential diagnosis includes UTI, pyelonephritis, nephrolithiasis, pancreatitis, gastritis, peptic ulcer disease, partial small bowel obstruction, alcohol intoxication, alcohol withdrawal. Narrative Course IV was established, labs are drawn and sent, the patient was placed on cardiac telemetry monitoring and continuous pulse oximetry monitoring. Patient was administered morphine, Zofran, and IV fluids. UA was sent to lab. UA was unremarkable. Laboratory evaluation is essentially unremarkable, lactic acid is within normal limits, white count is normal. Patient still had abdominal pain, therefore, noncontrast CT of the abdomen and pelvis was obtained. CT of the abdomen and pelvis reveals chronic pancreatitis, improving changes around the pancreas compared to previous study and gallstones. No evidence of kidney stone. The patient's workup is essentially unremarkable. She is stable for outpatient follow-up with her primary physician. Diagnosis Primary Impression: Pelvic pain Additional Impression: Dysuria Patient Instructions: General Instructions Additional Instructions: Pyridium as directed. Follow-up with your primary physician. Return if symptoms worsen or progress. Med/Other Pt SpecificInfo: Prescription(s) given Scripts Phenazopyridine (Pyridium) 100 Mg Tab 200 MG PO Q8HR for Dysuria for 2 Days, TAB 0 Refills Prov: Wes Mckeon MD 02/13/18 Ciprofloxacin (Cipro) 500 Mg Tab 500 MG PO BID for Infection for 3 Days, #6 TAB 0 Refills Prov: Wes Mckeon MD 02/13/18 Disposition: DISCHARGE HOME Condition: Stable Wes Mckeon MD Feb 13, 2018 10:51
[2018-02-13 11:27] VITALS: O2SAT 98
[2018-02-13 12:15] LABS: AUTOMATED NEUTROPHIL # 4.9 TH/MM3 (1.8-7.7); BASOPHIL % 0.5 % (0.0-2.0); EOSINOPHIL % 0.5 % (0.0-4.0); HEMOGLOBIN 12.9 GM/DL (11.6-15.3); LYMPH % 27.9 % (9.0-44.0); LYMPHOCYTE # 2.2 TH/MM3 (1.0-4.8); MEAN CELL VOLUME 94.6 FL (80.0-100.0); MEAN CORPUSCULAR HEMOGLOBIN 32.2 PG (27.0-34.0); MEAN CORPUSCULAR HGB CONC 34.1 % (32.0-36.0); MONO % 8.5 % (0.0-8.0); MONOCYTE # 0.7 TH/MM3 (0-0.9); NEUT % 62.6 % (16.0-70.0); PLATELET COUNT 390 TH/MM3 (150-450); RED BLOOD COUNT 4.01 MIL/MM3 (4.00-5.30); RED CELL DISTRIBUTION WIDTH 17.5 % (11.6-17.2); WHITE BLOOD COUNT 7.8 TH/MM3 (4.0-11.0)
[2018-02-13 12:19] LABS: BACTERIA, URINE RARE /hpf; BILIRUBIN, URINE NEG (NEG); BLOOD, URINE MOD (NEG); GLUCOSE,URINE NEG (NEG); KETONE, URINE NEG (NEG); NITRITE,URINE NEG (NEG); SQUAMOUS EPITHELIAL CELL URINE 2 /hpf (0-5); URINE COLOR YELLOW (YELLW/STRAW); URINE LEUKOCYTE ESTERASE NEG (NEG)
[2018-02-13 12:40] LABS: ALBUMIN 3.6 GM/DL (3.4-5.0); ALT (GPT) 28 U/L (10-53); AST (GOT) 65 U/L (15-37); BICARBONATE 20.6 MEQ/L (21.0-32.0); BLOOD UREA NITROGEN 7 MG/DL (7-18); CALCIUM 8.7 MG/DL (8.5-10.1); CHLORIDE 101 MEQ/L (98-107); CREATININE 0.87 MG/DL (0.50-1.00); GLOMERULAR FILTRATION RATE 64 ML/MIN (>89); GLUCOSE,RANDOM 78 MG/DL (74-106); SODIUM (NA) 137 MEQ/L (136-145)
[2018-02-13 12:43] LABS: ALKALINE PHOSPHATASE 140 U/L (45-117); TOTAL BILIRUBIN ADULT 0.8 MG/DL (0.2-1.0)
[2018-02-13 13:05] VITALS: BP 162/87; PULSE 80; RESP 18; O2SAT 99
[2018-02-13] MEDS ORDERED: diphenhydrAMINE HCL 50 MG/ML VIAL IV PUSH ONE ×2 (13:30→14:45)
[2018-02-13] MEDS ORDERED: LORazepam 2 MG/ML VIAL IV PUSH ONE (14:45)
--- NOTE | 2018-02-13 15:02 | RADRPT ---
EXAM DATE: 02/13/2018 2:39 PM EDT AGE/SEX: 72 years / Female INDICATIONS: Pelvic pain with dysuria. CLINICAL DATA: This is the patient's initial encounter. Patient reports that signs and symptoms have been present for 1 day and indicates a pain score of 10/10. MEDICAL/SURGICAL HISTORY: Cerebrovascular disease. Cardiovascular disease. Pancreatitis. Sei zure. Ulcer. Breast cancer. Appendectomy. Cholecystectomy. Hysterectomy. RADIATION DOSE: 4.73 CTDI (mGy) COMPARISON: [facility], CT ABDOMEN & PELVIS W/O CONTRAST, 11/30/2017. . TECHNIQUE: Multiple contiguous axial images were obtained through the abdomen. Images were obtained using multiple row detector helical technique. Using automated exposure control and adjustment of the mA and/or kV according to patient size, radiation dose was kept as low as reasonably achievable to o btain optimal diagnostic quality images. DICOM format image data is available electronically for rev iew and comparison. Lack of IV contrast limits the diagnosis for certain organ pathology. FINDINGS: Lower Lungs: The visualized lower lungs are clear. Liver: The liver is stable in appearance with several low-density lesion suggestive of small hepatic cysts. A few tiny gallstones are seen in the gallbladder. No surrounding inflammatory changes are see n. These findings are stable compared to the prior study. No evidence of ascites. Spleen: Stable multiple splenic granulomas. Pancreas: The previously noted diffuse inflammatory changes and prominence of the body and tail the pancreas have resolved. There continues to be some prominence involving the head of the pancreas. How ever this is definitely decreased in size compared to the prior examination. There are chronic calcif ications throughout the pancreas consistent with chronic pancreatitis. Kidneys: Normal in size and shape. No evidence of mass or hydronephrosis. Adrenal Glands: Unremarkable. Aorta: The aorta and proximal iliac vessels are grossly unremarkable without aneurysmal dilation. Bowel/Mesentery: The bowel loops are grossly unremarkable. The cecum and sigmoid colon have a normal configuration. Scattered diverticulosis of the sigmoid colon without inflammatory changes. There is stool throughout the colon. Abdominal Wall: Intact. Retroperitoneum: No evidence of adenopathy in the retrocrural, para-aortic, or deep pelvic regions. Bladder: Contours are smooth. Reproductive Organs: No pelvic masses. No free fluid in the pelvis. Inguinal: The inguinal region is unremarkable without evidence of adenopathy. Bony Structures: Stable degenerative changes. Stable internal fixation devices in both hips. CONCLUSION: 1. The previously noted findings of acute pancreatitis has significantly improved on today's examina tion. The inflammatory changes noted around the body and tail the pancreas have resolved. There has b een a reduction in the overall prominence of the pancreatic head since the prior study. However there continues to be some prominence of the pancreatic head still on today's examination. No biliary trac t obstruction is seen. This most likely represents resolving pancreatitis. 2. There is evidence of chronic pancreatitis with multiple calcifications throughout the pancreas. 3. Gallstones in the gallbladder without biliary tract obstruction. 4. Scattered diverticulosis of the sigmoid colon without inflammatory changes. 5. No other new or significant changes compared to the prior study. Electronically signed by: Benedicto Raphael MD 02/13/2018 3:01 PM EDT
[2018-02-13] MEDS ORDERED: PHEN0.4T PO (15:16)
[2018-02-13] MEDS ORDERED: CIPR-9 PO (15:16)
[2018-02-13 15:56] VITALS: BP 162/74
== END 2018-02-13 16:35 | disposition home or self-care (01) ==
LOC: NEPD 10:31
DX: R10.2 Pelvic and perineal pain (principal); R30.0 Dysuria; K57.90 Diverticulosis of intestine, part unspecified, without perforation or abscess without bleeding; M06.9 Rheumatoid arthritis, unspecified; F41.9 Anxiety disorder, unspecified; F32.9 Major depressive disorder, single episode, unspecified; I48.91 Unspecified atrial fibrillation; I25.10 Atherosclerotic heart disease of native coronary artery without angina pectoris; K21.9 Gastro-esophageal reflux disease without esophagitis; I10 Essential (primary) hypertension; E03.9 Hypothyroidism, unspecified; Z79.899 Other long term (current) drug therapy; Z88.0 Allergy status to penicillin; Z86.69 Personal history of other diseases of the nervous system and sense organs; Z87.19 Personal history of other diseases of the digestive system; Z86.73 Personal history of transient ischemic attack (TIA), and cerebral infarction without residual deficits; Z88.2 Allergy status to sulfonamides
CPT/HCPCS: 74176; 80053; 80307; 81001; 83605; 83690; 85025; 96361; 96374; 96375; 96376; 99284; J1200; J2060; J2270; J7030

== ENCOUNTER 2018-04-15 01:38 | Inpatient (IN) ==
[2018-04-15] MEDS ORDERED: Sod Chloride 0.9% Inj 1,000 ML IV.SIG ONE (02:49)
[2018-04-15] MEDS ORDERED: Morphine Sulfate Inj 2 MG/ML Vial IV.PUSH ONE (02:49)
--- NOTE | 2018-04-15 02:53 | ED ---
HPI General Chief complaint: Dizziness Stated complaint: Dizziness Time Seen by Provider: 04/15/18 02:39 History of Present Illness HPI narrative: Patient presents to the emergency department complaining of diarrhea and abdominal pain. States that the symptoms began a couple of hours ago. Unable to quantify the amount of diarrhea but states that it was a lot and is nonbloody. No known sick contacts. He does report nausea but no vomiting. Abdominal pain is described as being epigastric, periumbilical and suprapubic, 60 7 out of 10, intermittent, unknown duration, achy pain, similar to those in the past unsure of diagnosis. She states that there are no aggravating factors and has been alleviated with Xanax. He reports chills but no fever. Related Data Home Medications Medication Instructions Recorded Confirmed levothyroxine [Synthroid] 75 mcg PO DAILY 03/15/18 04/15/18 desvenlafaxine succinate 100 mg PO DAILY 04/15/18 04/15/18 cqtksh-drljceba-lcamgln [Creon] 2 cap PO TID 04/15/18 04/15/18 losartan 100 mg PO DAILY 04/15/18 04/15/18 promethazine 25 mg PO Q6H PRN 04/15/18 04/15/18 Allergies Allergy/AdvReac Type Severity Reaction Status Date / Time Sulfa (Sulfonamide Allergy Intermediate rash Verified 03/15/18 10:15 Antibiotics) Penicillins Allergy Unknown Weakness Verified 03/15/18 10:15 Review of Systems ROS: all other systems reviewed are negative [facility] Medical History Medical History Abuse, drug or alcohol (Acute) Appendicitis (Acute) H/O: hysterectomy (Acute) Hypothyroid (Acute) Social History Social History Substance History: No History of Abuse Smoking Status: Former smoker Tobacco Type: Cigarettes How Often Do You Have a Drink Containing Alcohol: 2 to 4 times a month Recent Travel in [facility] within the Last 8 Weeks: No Recent Out of Country Travel within the Last 8 Weeks: No Immunization History Tetanus Immunization: >5 Years Hx Influenza Vaccine This Season: Yes Exam Narrative Exam Narrative: GENERAL: Teary on exam. SKIN: Focused skin assessment warm/dry. HEAD: Atraumatic. Normocephalic. EYES: Pupils equal and round. No scleral icterus. No injection or drainage. ENT: No nasal bleeding or discharge. Mucous membranes pink and moist. NECK: Trachea midline. No JVD. CARDIOVASCULAR: Regular rate and rhythm. No murmur appreciated. RESPIRATORY: No accessory muscle use. Clear to auscultation. Breath sounds equal bilaterally. GASTROINTESTINAL: Abdomen soft, diffusely tender, nondistended. Hepatic and splenic margins not palpable. MUSCULOSKELETAL: No obvious deformities. No clubbing. No cyanosis. No edema. NEUROLOGICAL: Awake and alert. No obvious cranial nerve deficits. Motor grossly within normal limits. Normal speech. PSYCHIATRIC: Appropriate mood and affect; insight and judgment normal. Course Initial Documented Vital Signs Temperature 98.8 F 04/15/18 02:09 Pulse Rate 88 04/15/18 02:09 Respiratory Rate 17 04/15/18 02:09 Blood Pressure 168/96 H 04/15/18 02:09 Pulse Oximetry 99 04/15/18 02:09 Last Documented Vital Signs Temperature 98.8 F 04/15/18 02:14 Pulse Rate 87 04/15/18 02:14 Respiratory Rate 20 04/15/18 04:08 Blood Pressure 169/96 H 04/15/18 02:14 Pulse Oximetry 99 04/15/18 02:14 Medical Decision Making MDM Narrative Medical decision making narrative: She presents to the emergency department complaining of abdominal pain and diarrhea. Patient placed on personnel monitor, continuous pulse ox, and IV access obtained. Labs and Ct scan ordered. Patient given IVF, morphine 2mg IV, and zofran 4mg IV. Elevated lipase, creatinine, lactic acid, AST. CT scan: CONCLUSION:1. Prominence of the pancreatic head and adjacent duodenum. This could be secondary to inflammatory change including focal pancreatitisor duodenitis and peptic ulcer disease. On the prior exam this area also appear prominent. There is more inflammatory change seen surrounding this region on the prior exam. An underlying mass involving the pancreatic head and duodenum cannot be excluded. One could consider direct inspection of the duodenum. There are calcifications in the pancreas consistent with chronic pancreatitis.2. Small calcified gallstones.3. Hepatic cysts and calcified granulomas.4. Splenic ossified granulomas.5. Chronic bony changes as described above. Will admit for pancreatitis. Medical Screen Exam Complete: Yes Emergency Medical Condition: Yes Lab Data Result diagrams: 04/15/18 03:00 04/15/18 03:00 Lab Results 04/15/18 04/15/18 04/15/18 Range/Units 03:00 03:00 03:00 WBC 7.0 (4.0-11.0) th/mm3 RBC 3.83 L (4.00-5.30) mil/mm3 Hgb 12.5 (11.6-15.3) gm/dL Hct 36.9 (35.0-46.0) % MCV 96.5 (80.0-100.0) fL MCH 32.6 (27.0-34.0) pg MCHC 33.8 (32.0-36.0) % RDW 17.0 (11.6-17.2) % Plt Count 331 D (150-450) th/mm3 MPV 7.2 (7.0-11.0) fL Neut % (Auto) 70.1 H (16.0-70.0) % Lymph % (Auto) 16.9 (9.0-44.0) % [place] % (Auto) 12.2 H (0.0-8.0) % Eos % (Auto) 0.2 (0.0-4.0) % Baso % (Auto) 0.6 (0.0-2.0) % Neut # (Auto) 4.9 (1.8-7.7) th/mm3 Lymph # (Auto) 1.2 (1.0-4.8) th/mm3 [place] # (Auto) 0.9 (0.0-0.9) th/mm3 Eos # (Auto) 0.0 (0.0-0.4) th/mm3 Baso # (Auto) 0.0 (0.0-0.2) th/mm3 WBC Differential . Differential Comment Auto diff final PT 11.3 (9.8-11.6) sec INR 1.1 Ratio APTT 25.5 (24.3-30.1) sec Sodium 132 L (136-145) meq/L Potassium 4.0 (3.5-5.1) meq/L Chloride 102 (98-107) meq/L Carbon Dioxide 18.5 L (21.0-32.0) meq/L Anion Gap 12 (5-15) meq/L BUN 12 (7-18) mg/dL Creatinine 1.09 H (0.50-1.00) mg/dL Estimated GFR 50 L (>89) mL/min Random Glucose 103 (74-106) mg/dL Lactic Acid (0.4-2.0) mmol/L Calcium 8.8 (8.5-10.1) mg/dL Magnesium 1.6 (1.5-2.5) mg/dL Total Bilirubin 0.5 (0.2-1.0) mg/dL AST 47 H (15-37) U/L ALT 22 (10-53) U/L Alkaline Phosphatase 99 (45-117) U/L Total Protein 7.7 (6.4-8.2) g/dL Albumin 3.4 (3.4-5.0) g/dL Lipase 538 H (73-393) U/L Serum Alcohol Less than 3 (0-5) mg/dL 04/15/18 Range/Units 03:00 WBC (4.0-11.0) th/mm3 RBC (4.00-5.30) mil/mm3 Hgb (11.6-15.3) gm/dL Hct (35.0-46.0) % MCV (80.0-100.0) fL MCH (27.0-34.0) pg MCHC (32.0-36.0) % RDW (11.6-17.2) % Plt Count (150-450) th/mm3 MPV (7.0-11.0) fL Neut % (Auto) (16.0-70.0) % Lymph % (Auto) (9.0-44.0) % [place] % (Auto) (0.0-8.0) % Eos % (Auto) (0.0-4.0) % Baso % (Auto) (0.0-2.0) % Neut # (Auto) (1.8-7.7) th/mm3 Lymph # (Auto) (1.0-4.8) th/mm3 [place] # (Auto) (0.0-0.9) th/mm3 Eos # (Auto) (0.0-0.4) th/mm3 Baso # (Auto) (0.0-0.2) th/mm3 WBC Differential Differential Comment PT (9.8-11.6) sec INR Ratio APTT (24.3-30.1) sec Sodium (136-145) meq/L Potassium (3.5-5.1) meq/L Chloride (98-107) meq/L Carbon Dioxide (21.0-32.0) meq/L Anion Gap (5-15) meq/L BUN (7-18) mg/dL Creatinine (0.50-1.00) mg/dL Estimated GFR (>89) mL/min Random Glucose (74-106) mg/dL Lactic Acid 2.1 H (0.4-2.0) mmol/L Calcium (8.5-10.1) mg/dL Magnesium (1.5-2.5) mg/dL Total Bilirubin (0.2-1.0) mg/dL AST (15-37) U/L ALT (10-53) U/L Alkaline Phosphatase (45-117) U/L Total Protein (6.4-8.2) g/dL Albumin (3.4-5.0) g/dL Lipase (73-393) U/L Serum Alcohol (0-5) mg/dL Imaging Data Radiologist's impression: Abdomen/Pelvis CT 04/15/18 02:53 CONCLUSION: 1. Prominence of the pancreatic head and adjacent duodenum. This could be secondary to inflammatory change including focal pancreatitis or duodenitis and peptic ulcer disease. On the prior exam this area also appear prominent. There is more inflammatory change seen surrounding this region on the prior exam. An underlying mass involving the pancreatic head and duodenum cannot be excluded. One could consider direct inspection of the duodenum. There are calcifications in the pancreas consistent with chronic pancreatitis. 2. Small calcified gallstones. 3. Hepatic cysts and calcified granulomas. 4. Splenic ossified granulomas. 5. Chronic bony changes as described above. ECG Data Attestation: I personally reviewed and interpreted this ECG as follows: (Sinus rhythm, rate 86, normal axis, normal intervals, no ST elevation) Discharge Plan Discharge Disposition Patient Disposition: 30 Still Patient Discharge Condition Condition: Stable Discharge Details Diagnosis: Acute pancreatitis Physicians Team ED Provider: Marianne Worthy Primary Care Provider: Maxi Branch Rxs /Orders / Referrals /Forms Prescriptions: No Action levothyroxine [Synthroid] 200 mcg Tablet 75 mcg PO DAILY RF: 0 promethazine 25 mg Tablet 25 mg PO Q6H PRN (Reason: Nausea) RF: 0 losartan 100 mg Tablet 100 mg PO DAILY RF: 0 desvenlafaxine succinate 100 mg Tablet Extended Release 24 Hr 100 mg PO DAILY RF: 0 tuntvg-aebmreja-vogafwy [Creon] 36,000-114,000- 180,000 unit Capsule,Delayed Release(Dr/Ec) 2 cap PO TID RF: 0 Discharge Interventions Interventions: Vital Signs Last Done: 04/15/18 02:14 Status ED Status: With Doctor
[2018-04-15 03:22] LABS: Baso % (Auto) 0.6 % (0.0-2.0); Eos % (Auto) 0.2 % (0.0-4.0); Hematocrit 36.9 % (35.0-46.0); Hemoglobin 12.5 gm/dL (11.6-15.3); Lymph # (Auto) 1.2 th/mm3 (1.0-4.8); Lymph % (Auto) 16.9 % (9.0-44.0); Mean Corpuscular HGB Conc 33.8 % (32.0-36.0); Mean Corpuscular Hemoglobin 32.6 pg (27.0-34.0); Mean Corpuscular Volume 96.5 fL (80.0-100.0); Mean Platelet Volume 7.2 fL (7.0-11.0); Mono # (Auto) 0.9 th/mm3 (0.0-0.9); Mono % (Auto) 12.2 % (0.0-8.0); Neut # (Auto) 4.9 th/mm3 (1.8-7.7); Neut % (Auto) 70.1 % (16.0-70.0); Platelet Count 331 th/mm3 (150-450); Red Blood Count 3.83 mil/mm3 (4.00-5.30)
[2018-04-15 03:28] LABS: Activated Partial Thrombo Time 25.5 sec (24.3-30.1); INR 1.1 Ratio; Prothrombin Time 11.3 sec (9.8-11.6)
[2018-04-15 03:33] LABS: Alkaline Phosphatase 99 U/L (45-117); Total Protein 7.7 g/dL (6.4-8.2)
[2018-04-15 03:37] LABS: Alanine Aminotransferase 22 U/L (10-53); Albumin 3.4 g/dL (3.4-5.0); Anion Gap 12 meq/L (5-15); Aspartate Aminotransferase 47 U/L (15-37); Blood Urea Nitrogen 12 mg/dL (7-18); Calcium 8.8 mg/dL (8.5-10.1); Carbon Dioxide 18.5 meq/L (21.0-32.0); Chloride 102 meq/L (98-107); Glomerular Filtration Rate 50 mL/min (>89); Glucose,Random 103 mg/dL (74-106); Lipase 538 U/L (73-393); Magnesium 1.6 mg/dL (1.5-2.5); Sodium 132 meq/L (136-145)
[2018-04-15] MEDS ORDERED: Sod Chloride 0.9% Inj 1,000 ML IV.CONT SCH (04:45)
--- NOTE | 2018-04-15 05:06 | CT ---
EXAM DATE: 04/15/2018 4:46 AM EDT AGE/SEX: 72 years / Female INDICATIONS: Abdomen pain. CLINICAL DATA: This is the patient's initial encounter. Patient reports that signs and symptoms have been present for 1 day and indicates a pain score of 5/10. MEDICAL/SURGICAL HISTORY: Carcinoma, breast. Pancreatitis. Hypothyroidism. Substance abuse Cholecystectomy. ORAL CONTRAST: No oral contrast ingested. RADIATION DOSE: 8.57 CTDI (mGy) COMPARISON: [facility] [place], CT ABDOMEN & PELVIS W CONTRAST, 12/20/2017. . TECHNIQUE: Multiple contiguous axial images were obtained through the abdomen and pelvis following b olus infusion of 75 ml Omnipaque 350 (iohexol) nonionic water-soluble contrast as a single exam dos e. No oral contrast ingested. Using automated exposure control and adjustment of the mA and/or kV ac cording to patient size, radiation dose was kept as low as reasonably achievable to obtain optimal di agnostic quality images. DICOM format image data is available electronically for review and comparis on. FINDINGS: Lower Lungs: There is mild linear scarring or atelectasis at the lung bases. Liver: There are several hypodensities seen throughout the liver likely related to cysts. Calcified g ranulomas are seen at the liver. There are small calcified gallstones Spleen: There are numerous calcified granulomas in the spleen. Pancreas: The pancreatic head appears prominent. There are calcifications in the pancreatic head. Th ere also appears to be some prominence of the adjacent duodenum. This appearance was present on the p rior exam. There is dilatation the pancreatic duct within the pancreatic body and tail. It measures 5 mm. There are a few calcifications seen in the pancreatic body. Kidneys: Normal in size and shape. No evidence of hydronephrosis. Small renal cysts are seen. Adrenal Glands: Unremarkable. Aorta: The aorta and proximal iliac vessels are grossly unremarkable without aneurysmal dilation. A therosclerotic calcifications are present. Bowel/Mesentery: The bowel loops are grossly unremarkable. The cecum and sigmoid colon have a normal configuration. Abdominal Wall: Intact. Retroperitoneum: No evidence of adenopathy in the retrocrural, para-aortic, or deep pelvic regions. Clips are seen in the left pelvis. Bladder: Contours are smooth. Reproductive Organs: The patient appears status post hysterectomy. Inguinal: The inguinal region is unremarkable without evidence of adenopathy. Bony Structures: There is degenerative change in the lumbar spine. There is some compressive change at the anterior superior aspect of the T12 vertebral body. This finding was present on the prior exam and is chronic. Surgical hardware seen in the proximal femurs bilaterally. CONCLUSION: 1. Prominence of the pancreatic head and adjacent duodenum. This could be secondary to inflammatory change including focal pancreatitis or duodenitis and peptic ulcer disease. On the prior exam this ar ea also appear prominent. There is more inflammatory change seen surrounding this region on the prior exam. An underlying mass involving the pancreatic head and duodenum cannot be excluded. One could co nsider direct inspection of the duodenum. There are calcifications in the pancreas consistent with ch ronic pancreatitis. 2. Small calcified gallstones. 3. Hepatic cysts and calcified granulomas. 4. Splenic ossified granulomas. 5. Chronic bony changes as described above. Electronically signed by: Estevan Pope MD 04/15/2018 5:04 AM EDT
[2018-04-15] MEDS ORDERED: Sodium Chlor 0.9% Inj 500 ML IV.SIG ONE (05:16)
[2018-04-15] MEDS ORDERED: Bisacodyl 10 MG Supp RECTAL PRN (05:41)
[2018-04-15] MEDS: Sod Chloride 0.9% Inj 1,000 ML IV.CONT SCH ×2 (06:06→15:52)
[2018-04-15] MEDS: Heparin - SQ 10,000 UNITS/ML Vial SQ SCH ×2 (06:16→18:29)
[2018-04-15] MEDS: Senna/Docusate Sodium 8.6/50 MG Tablet PO SCH ×2 (09:45→22:32)
[2018-04-15] MEDS: Acetaminophen 325 MG Tablet PO PRN ×2 (14:37→23:06)
--- NOTE | 2018-04-15 15:52 | ECG ---
Date Performed: 04/15/2018 Time Performed: 02:22:10 PTAGE: 72 years EKG: Sinus rhythm NORMAL ECG Since PREVIOUS TRACING , no significant change noted PREVIOUS TRACIN12/20/2017 23.37 DOCTOR: Royce Cisse Interpretating Date/Time 04/15/2018 15:50:12
--- NOTE | 2018-04-15 16:59 | P.HP ---
History of Present Illness Service: Hospitalist Primary Care Physician: Maxi Branch MD Chief Complaint: Nausea and vomiting History of Present Illness: Patient is a 72-year-old female with a past medical history of hypertension, depression, EtOH abuse and pancreatitis. She has been seen for pancreatitis multiple times, most recently November 2017. She initially presented 04/14/18 to the emergency room via EMS for suprapubic abdominal discomfort. She did complain of some dysuria. Also had a complaint of nausea. CT of the abdomen and pelvis noted that previous acute pancreatitis has improved. There is still some prominence of the pancreatic head with no biliary obstruction. Gallstones without obstruction were noted. Scattered diverticulosis with no inflammatory change was also seen. Laboratory significant for sodium of 132, mildly elevated creatinine of 1.09 and GFR of 50. Lactic acid 2.1. Lipase 538. Afebrile. Blood pressure elevated. Patient is seen in room today. She is obviously very depressed and tells me that she is still grieving the of her for over a year ago. Endorses continued drinking; unlikely to stop. She tells me she has been taking her medications consistently. Does still complain of some dysuria however is vague in her symptom descriptions. She is experiencing nausea and vomiting. Did not tolerate a cracker earlier but is hoping she can keep down some soup. No chest pain or shortness of breath. No dizziness or headache. Inpatient Certification: I certify that the inpatient services were ordered in accordance with Medicare regulations governing the order. This includes certification that hospital inpatient services are reasonable and necessary and in the case of services not specified as inpatient-only under 42 CFR 419.22(n), that they are appropriately provided as inpatient services in accordance to with the 2-midnight benchmark under 43 CFR 412.3(e) Estimated Total Length of Stay (Days): 2 Plans for Post Hospital Care: Home Review of Systems All other systems reviewed negative except as stated in HPI PMFSH - History History Provided By: Patient, Medical Record - Medical History Medical History: Medical History (Last Updated 04/15/18 @ 16:41 by DORIE Bryan) H/O: hysterectomy (Acute) Depression History of cancer of left breast Hypertension Pancreatitis Abuse, drug or alcohol Appendicitis Hypothyroid - Family History Family History: Family History (Last Reviewed 04/15/18 @ 16:41 by DORIE Bryan) Other Family history non-contributory - Tobacco History Second Hand Smoke Exposure: No Smoking Status: Former smoker Tobacco Type: Cigarettes - Alcohol History How Often Do You Have a Drink Containing Alcohol: 2 to 3 times a week - Substance Use History Substance History: Active Abuse - Travel History Recent Travel in the [place] Within the Last 8 Weeks: No Recent Travel Out of the Country Within the Last 8 Weeks: No - Immunization History Tetanus Immunization: >5 Years Hx Influenza Vaccine This Season: Yes Medications and Allergies Active Medications: Active Medications Acetaminophen (Tylenol) 650 mg PO Q4H PRN PRN Reason: Temp > 100.4 Last Admin: 04/15/18 14:37 Dose: 650 mg Al Hydroxide/Mg Hydroxide (Milk Of Magnesia Liq) 30 ml PO Q12H PRN PRN Reason: Mild Constipation Bisacodyl (Dulcolax Supp) 10 mg RECTAL DAILY PRN PRN Reason: SEVERE CONSITIPATION Heparin Sodium (Porcine) (Heparin Inj) 5,000 units SQ Q12H [facility] Last Admin: 04/15/18 06:16 Dose: 5,000 units Sodium Chloride (Ns Inj) 1,000 mls @ 100 mls/hr IV.CONT .Q10H [facility] Last Admin: 04/15/18 15:52 Dose: 100 mls/hr Lactulose (Lactulose Liq) 30 ml PO DAILY PRN PRN Reason: SEVERE CONSITIPATION Levothyroxine Sodium (Synthroid) 75 mcg PO DAILY@0600 [facility] Losartan Potassium (Cozaar) 100 mg PO DAILY [facility] Last Admin: 04/15/18 10:59 Dose: 100 mg Morphine Sulfate (Morphine Inj) 2 mg IV.PUSH Q4H PRN PRN Reason: pain 6-10 Ondansetron HCl (Zofran Inj) 4 mg IV.PUSH Q6H PRN PRN Reason: NAUSEA OR VOMITING Last Admin: 04/15/18 12:55 Dose: 4 mg Pt Own Med: Pristiq (Desvenlafaxine) 100mg Po Daily 1 each PO DAILY [facility] Senna/Docusate Sodium (Olivia-Colace) 1 tab PO BID [facility] Last Admin: 04/15/18 09:45 Dose: Not Given Sennosides (Senokot) 17.2 mg PO Q12H PRN PRN Reason: Moderate Constipation Allergies Allergy/AdvReac Type Severity Reaction Status Date / Time Sulfa (Sulfonamide Allergy Intermediate rash Verified 03/15/18 10:15 Antibiotics) Penicillins Allergy Unknown Weakness Verified 03/15/18 10:15 Home Medications Medication Instructions Recorded Confirmed Type levothyroxine [Synthroid] 75 mcg PO DAILY 03/15/18 04/15/18 History desvenlafaxine succinate 100 mg PO DAILY 04/15/18 04/15/18 History ffwuxp-zjzswddi-dbtwslu [Creon] 2 cap PO TID 04/15/18 04/15/18 History losartan 100 mg PO DAILY 04/15/18 04/15/18 History promethazine 25 mg PO Q6H PRN 04/15/18 04/15/18 History Exam Vital signs: Vital Signs 04/15/18 02:09 04/15/18 02:14 04/15/18 04:08 Temperature 98.8 F 98.8 F Pulse Rate 88 87 Respiratory Rate 17 15 20 Blood Pressure 168/96 H 169/96 H Pulse Oximetry 99 99 04/15/18 06:14 04/15/18 12:00 Temperature 98.3 F Pulse Rate 86 80 Respiratory Rate 20 18 Blood Pressure 168/88 H 163/79 H Pulse Oximetry 98 99 Intake & Output 04/14/18 04/15/18 04/15/18 18:59 06:59 18:59 Weight 61.235 kg 64.4 kg Narrative: GENERAL: Well-nourished, well-developed adult female in no obvious distress. SKIN: Warm and dry. HEAD: Atraumatic. Normocephalic. CARDIOVASCULAR: Regular rate and rhythm. RESPIRATORY: No accessory muscle use. Clear to auscultation. Breath sounds equal bilaterally. GASTROINTESTINAL: Abdomen soft, epigastric and suprapubic tenderness, non- distended. Positive bowel sounds. MUSCULOSKELETAL: Extremities without clubbing, cyanosis, or edema. No obvious deformities. NEUROLOGICAL: Awake and alert. No obvious cranial nerve deficits. Motor grossly within normal limits. Normal speech. PSYCHIATRIC: Depressed; insight and judgment good. Results - Labs CBC & Chem 7: 04/15/18 03:00 04/15/18 03:00 Labs: Laboratory Results - last 24 hr 04/15/18 04/15/18 04/15/18 03:00 03:00 03:00 WBC 7.0 RBC 3.83 L Hgb 12.5 Hct 36.9 MCV 96.5 MCH 32.6 MCHC 33.8 RDW 17.0 Plt Count 331 D MPV 7.2 Neut % (Auto) 70.1 H Lymph % (Auto) 16.9 [place] % (Auto) 12.2 H Eos % (Auto) 0.2 Baso % (Auto) 0.6 Neut # (Auto) 4.9 Lymph # (Auto) 1.2 [place] # (Auto) 0.9 Eos # (Auto) 0.0 Baso # (Auto) 0.0 WBC Differential . Differential Comment Auto diff final PT 11.3 INR 1.1 APTT 25.5 Sodium 132 L Potassium 4.0 Chloride 102 Carbon Dioxide 18.5 L Anion Gap 12 BUN 12 Creatinine 1.09 H Estimated GFR 50 L Random Glucose 103 Lactic Acid Calcium 8.8 Magnesium 1.6 Total Bilirubin 0.5 AST 47 H ALT 22 Alkaline Phosphatase 99 Total Protein 7.7 Albumin 3.4 Lipase 538 H Serum Alcohol Less than 3 04/15/18 03:00 WBC RBC Hgb Hct MCV MCH MCHC RDW Plt Count MPV Neut % (Auto) Lymph % (Auto) [place] % (Auto) Eos % (Auto) Baso % (Auto) Neut # (Auto) Lymph # (Auto) [place] # (Auto) Eos # (Auto) Baso # (Auto) WBC Differential Differential Comment PT INR APTT Sodium Potassium Chloride Carbon Dioxide Anion Gap BUN Creatinine Estimated GFR Random Glucose Lactic Acid 2.1 H Calcium Magnesium Total Bilirubin AST ALT Alkaline Phosphatase Total Protein Albumin Lipase Serum Alcohol - Imaging Impressions Abdomen/Pelvis CT 04/15/18 02:53 CONCLUSION: 1. Prominence of the pancreatic head and adjacent duodenum. This could be secondary to inflammatory change including focal pancreatitis or duodenitis and peptic ulcer disease. On the prior exam this area also appear prominent. There is more inflammatory change seen surrounding this region on the prior exam. An underlying mass involving the pancreatic head and duodenum cannot be excluded. One could consider direct inspection of the duodenum. There are calcifications in the pancreas consistent with chronic pancreatitis. 2. Small calcified gallstones. 3. Hepatic cysts and calcified granulomas. 4. Splenic ossified granulomas. 5. Chronic bony changes as described above. Caprini VTE Risk Assessment Caprini VTE Risk Assessment: No/Low Risk (score <= 1) Caprini Risk Assessment Model: Point Value = 1 Point Value = 2 Point Value = 3 Point Value = 5 Age 41-60 Minor surgery BMI > 25 kg/m2 Swollen legs Varicose veins or History of unexplained or recurrent spontaneous Oral contraceptives or hormone replacement Sepsis (< 1 month) Serious lung disease, including pneumonia (< 1 month) Abnormal pulmonary function Acute myocardial infarction Congestive heart failure (< 1 month) History of inflammatory bowel disease Medical patient at bed rest Age 61-74 Arthroscopic surgery Major open surgery (> 45 min) Laparoscopic surgery (> 45 min) Malignancy Confined to bed (> 72 hours) Immobilizing plaster cast Central venous access Age >= 75 History of VTE Family history of VTE Factor V Leiden Prothrombin [id number] Lupus anticoagulant Anticardiolipin antibodies Elevated serum homocysteine Heparin-induced thrombocytopenia Other congenital or acquired thrombophilia Stroke (< 1 month) Elective arthroplasty Hip, pelvis, or leg fracture Acute spinal cord injury (< 1 month) Prophylaxis Regimen: Total Risk Factor Score Risk Level Prophylaxis Regimen 0-1 Low Early ambulation 2 Moderate Order ONE of the following: *Sequential Compression Device (SCD) *Heparin 5000 units SQ BID 3-4 Higher Order ONE of the following medications: *Heparin 5000 units SQ TID *Enoxaparin/Lovenox 40 mg SQ daily (WT < 150 kg, CrCl > 30 mL/min) *Enoxaparin/Lovenox 30 mg SQ daily (WT < 150 kg, CrCl > 10-29 mL/min) *Enoxaparin/Lovenox 30 mg SQ BID (WT < 150 kg, CrCl > 30 mL/min) AND/OR *Sequential Compression Device (SCD) 5 or more Highest Order ONE of the following medications: *Heparin 5000 units SQ TID (Preferred with Epidurals) *Enoxaparin/Lovenox 40 mg SQ daily (WT < 150 kg, CrCl > 30 mL/min) *Enoxaparin/Lovenox 30 mg SQ daily (WT < 150 kg, CrCl > 10-29 mL/min) *Enoxaparin/Lovenox 30 mg SQ BID (WT < 150 kg, CrCl > 30 mL/min) AND *Sequential Compression Device (SCD) Assessment and Plan - Plan Patient is a 72-year-old female with a past medical history of hypertension, depression, EtOH abuse and pancreatitis. She has been seen for pancreatitis multiple times, most recently November 2017. She initially presented 04/14/18 to the emergency room via EMS for suprapubic abdominal discomfort. She did complain of some dysuria. Also had a complaint of nausea. CT of the abdomen and pelvis noted that previous acute pancreatitis has improved. Pancreatitis -Advance diet as tolerated -Monitor labs UTI/dysuria -UA ordered EtOH abuse -Counseled cessation Hypertension -Restart home medication Hypothyroid -Restart home medication DVT prevention-heparin
[2018-04-15] MEDS ORDERED: Melatonin 5 MG Tablet PO ONE (22:50)
[2018-04-16] MEDS: Sod Chloride 0.9% Inj 1,000 ML IV.CONT SCH ×3 (02:06→22:49)
[2018-04-16] MEDS ORDERED: Haloperidol Inj 5 MG/ML Ampul IV.PUSH PRN (03:59)
[2018-04-16] MEDS: Heparin - SQ 10,000 UNITS/ML Vial SQ SCH ×2 (04:57→18:15)
[2018-04-16] MEDS: Acetaminophen 325 MG Tablet PO PRN ×4 (04:59→21:28)
[2018-04-16] MEDS: Levothyroxine 75 MCG Tablet PO SCH (05:00)
[2018-04-16 07:06] LABS: Baso % (Auto) 0.7 % (0.0-2.0); Eos % (Auto) 1.1 % (0.0-4.0); Hematocrit 32.1 % (35.0-46.0); Hemoglobin 10.9 gm/dL (11.6-15.3); Lymph # (Auto) 1.3 th/mm3 (1.0-4.8); Mean Corpuscular HGB Conc 33.9 % (32.0-36.0); Mean Corpuscular Hemoglobin 33.3 pg (27.0-34.0); Mean Corpuscular Volume 98.3 fL (80.0-100.0); Mean Platelet Volume 6.7 fL (7.0-11.0); Mono # (Auto) 0.5 th/mm3 (0.0-0.9); Mono % (Auto) 14.4 % (0.0-8.0); Neut # (Auto) 1.9 th/mm3 (1.8-7.7); Neut % (Auto) 49.8 % (16.0-70.0); Platelet Count 258 th/mm3 (150-450); Red Blood Count 3.27 mil/mm3 (4.00-5.30); Red Cell Distribution Width 17.6 % (11.6-17.2); White Blood Count 3.8 th/mm3 (4.0-11.0)
[2018-04-16 07:43] LABS: Alanine Aminotransferase 17 U/L (10-53); Albumin 2.8 g/dL (3.4-5.0); Alkaline Phosphatase 86 U/L (45-117); Anion Gap 11 meq/L (5-15); Aspartate Aminotransferase 35 U/L (15-37); Blood Urea Nitrogen 7 mg/dL (7-18); Calcium 8.5 mg/dL (8.5-10.1); Chloride 111 meq/L (98-107); Glomerular Filtration Rate 87 mL/min (>89); Glucose,Random 94 mg/dL (74-106); Lipase 414 U/L (73-393); Potassium 3.5 meq/L (3.5-5.1); Sodium 140 meq/L (136-145); Total Protein 6.3 g/dL (6.4-8.2)
[2018-04-16 07:58] LABS: Bilirubin,Urine Negative (Negative); Clarity,Urine Clear (Clear); Color,Urine Straw (Yellw/Straw); Glucose,Urine (UA) Negative (Negative); Leukocyte Esterase,Urine Negative (Negative); Nitrite,Urine Negative (Negative); Specific Gravity,Urine 1.006 (1.002-1.035); Squamous Epithelial Cell,Urine 1 /hpf (0-5)
[2018-04-16] MEDS ORDERED: PRISTIQ 100 MG PO SCH (09:00)
[2018-04-16] MEDS: Senna/Docusate Sodium 8.6/50 MG Tablet PO SCH ×2 (09:10→21:28)
--- NOTE | 2018-04-16 10:32 | P.PN ---
Subjective Interval history: Recurrent acute on chronic pancreatitis/labile benign hypertension April 16, 2018-patient seen and examined, reports some improvement of abdominal pain. Patient is alert and oriented to self and place. States she does not know why she was brought to the hospital. States she has no recollection of what happened prior to admission to hospital. Nurse aide by the bedside. Physical Exam Vital signs: Vital Signs 04/15/18 12:00 04/15/18 16:00 04/15/18 20:00 Temperature 98.3 F 98.1 F 98.3 F Pulse Rate 80 68 73 Respiratory Rate 18 Blood Pressure 163/79 H 166/89 H 173/90 H Pulse Oximetry 99 99 95 04/16/18 00:00 04/16/18 04:00 04/16/18 08:00 Temperature 98.5 F 98.5 F 97.7 F Pulse Rate 79 79 67 Respiratory Rate 18 Blood Pressure 164/88 H 162/90 H 142/85 H Pulse Oximetry 98 98 100 Intake & Output 04/15/18 04/16/18 04/16/18 18:59 06:59 18:59 Intake Total 480 / 480 1770 / 1770 Output Total 1100 / 1100 Balance 480 / 480 670 / 670 Weight 64.4 kg 64 kg Intake: IV 1030 / 1030 NS Inj 1,000 ML @ 100 mls/hr IV 1000 / 1000 .CONT .Q10H [facility]AC[facility] Rx#:[id number] Oral 480 / 480 740 / 740 Output: Urine 1100 / 1100 Other: # Voids 3 2 # Bowel Movements 1 Narrative: GENERAL: NAD SKIN: Warm and dry. HEAD: Normocephalic. EYES: No scleral icterus. No injection or drainage. NECK: Supple, trachea midline. No JVD or lymphadenopathy. CARDIOVASCULAR: Regular rate and rhythm without murmurs, gallops, or rubs. RESPIRATORY: Breath sounds equal bilaterally. No accessory muscle use. GASTROINTESTINAL: Abdomen soft, non-tender, nondistended. MUSCULOSKELETAL: No cyanosis, or edema. BACK: Nontender without obvious deformity. No CVA tenderness. Results - Labs CBC & Chem 7: 04/16/18 06:42 04/16/18 06:42 Laboratory Results - last 24 hr 04/16/18 04/16/18 04/16/18 06:42 06:42 07:42 WBC 3.8 L RBC 3.27 L Hgb 10.9 L Hct 32.1 L MCV 98.3 MCH 33.3 MCHC 33.9 RDW 17.6 H Plt Count 258 MPV 6.7 L Neut % (Auto) 49.8 Lymph % (Auto) 34.0 [place] % (Auto) 14.4 H Eos % (Auto) 1.1 Baso % (Auto) 0.7 Neut # (Auto) 1.9 Lymph # (Auto) 1.3 [place] # (Auto) 0.5 Eos # (Auto) 0.0 Baso # (Auto) 0.0 WBC Differential . Differential Comment Auto diff final Sodium 140 Potassium 3.5 Chloride 111 H D Carbon Dioxide 18.0 L Anion Gap 11 BUN 7 Creatinine 0.67 Estimated GFR 87 L Random Glucose 94 Calcium 8.5 Total Bilirubin 0.5 AST 35 ALT 17 Alkaline Phosphatase 86 Total Protein 6.3 L D Albumin 2.8 L D Lipase 414 H Urine Color Straw Urine Clarity Clear Urine pH 6.0 Ur Specific [place] 1.006 Urine Protein Negative Urine Glucose (UA) Negative Urine Ketones Negative Urine Occult Blood Negative Urine Nitrate Negative Urine Bilirubin Negative Urine Urobilinogen Less than 2 Ur Leukocyte Esterase Negative Urine RBC Less than 1 Urine WBC Less than 1 Ur Squamous Epith Cells 1 Micro UA Comment Culture not ind Urine Culture Comments Culture not ind - Procedures None Assessment and Plan - Plan 72-year-old female with Recurrent acute on chronic pancreatitis CT abdomen noted and reviewed by me Continue with conservative treatments, IV fluid hydration and advance diet as tolerated Alcohol cessation strongly advised Pain management accordingly Monitor lipase level EtOH abuse -Counseled cessation -CIWA protocol ,rally pack Hypertension -Continue home medication Hypothyroid -Continue home medication DVT prevention-heparin Discharge Planning: Likely discharge home within the next 24-48 hours
[2018-04-17 05:43] LABS: Alanine Aminotransferase 18 U/L (10-53)
[2018-04-17 05:45] LABS: Alkaline Phosphatase 89 U/L (45-117)
[2018-04-17 05:48] LABS: Anion Gap 13 meq/L (5-15); Aspartate Aminotransferase 39 U/L (15-37); Blood Urea Nitrogen 7 mg/dL (7-18); Calcium 8.3 mg/dL (8.5-10.1); Carbon Dioxide 17.2 meq/L (21.0-32.0); Chloride 110 meq/L (98-107); Glomerular Filtration Rate 78 mL/min (>89); Glucose,Random 100 mg/dL (74-106); Lipase 544 U/L (73-393); Potassium 3.3 meq/L (3.5-5.1); Sodium 140 meq/L (136-145)
[2018-04-17 05:52] LABS: Baso # (Auto) 0.1 th/mm3 (0.0-0.2); Baso % (Auto) 1.4 % (0.0-2.0); Eos # (Auto) 0.1 th/mm3 (0.0-0.4); Eos % (Auto) 1.5 % (0.0-4.0); Hematocrit 34.6 % (35.0-46.0); Hemoglobin 11.8 gm/dL (11.6-15.3); Lymph # (Auto) 1.2 th/mm3 (1.0-4.8); Lymph % (Auto) 20.8 % (9.0-44.0); Mean Corpuscular Hemoglobin 33.5 pg (27.0-34.0); Mean Corpuscular Volume 98.6 fL (80.0-100.0); Mean Platelet Volume 7.4 fL (7.0-11.0); Mono # (Auto) 0.6 th/mm3 (0.0-0.9); Mono % (Auto) 10.7 % (0.0-8.0); Neut # (Auto) 3.9 th/mm3 (1.8-7.7); Neut % (Auto) 65.6 % (16.0-70.0); Platelet Count 247 th/mm3 (150-450); Red Blood Count 3.51 mil/mm3 (4.00-5.30); White Blood Count 5.9 th/mm3 (4.0-11.0)
[2018-04-17] MEDS: Levothyroxine 75 MCG Tablet PO SCH (06:46)
[2018-04-17] MEDS: Heparin - SQ 10,000 UNITS/ML Vial SQ SCH ×2 (06:46→17:19)
[2018-04-17] MEDS: Acetaminophen 325 MG Tablet PO PRN (06:46)
[2018-04-17] MEDS ORDERED: Potassium Chloride 25 MEQ Effervescent Tablet PO ONE (07:24)
[2018-04-17 07:39] LABS: Baso % (Auto) 0.5 % (0.0-2.0); Eos # (Auto) 0.1 th/mm3 (0.0-0.4); Eos % (Auto) 0.9 % (0.0-4.0); Hematocrit 37.7 % (35.0-46.0); Hemoglobin 12.3 gm/dL (11.6-15.3); Lymph # (Auto) 1.9 th/mm3 (1.0-4.8); Lymph % (Auto) 28.2 % (9.0-44.0); Mean Corpuscular HGB Conc 32.6 % (32.0-36.0); Mean Corpuscular Volume 101.2 fL (80.0-100.0); Mean Platelet Volume 6.8 fL (7.0-11.0); Mono # (Auto) 0.9 th/mm3 (0.0-0.9); Mono % (Auto) 12.5 % (0.0-8.0); Neut % (Auto) 57.9 % (16.0-70.0); Platelet Count 277 th/mm3 (150-450); Red Blood Count 3.73 mil/mm3 (4.00-5.30); Red Cell Distribution Width 17.5 % (11.6-17.2); White Blood Count 6.9 th/mm3 (4.0-11.0)
--- NOTE | 2018-04-17 07:51 | CT ---
EXAM DATE: 04/17/2018 7:41 AM EDT AGE/SEX: 72 years / Female INDICATIONS: Stroke alert, left facial droop. Confusion. CLINICAL DATA: This is the patient's initial encounter. Patient reports that signs and symptoms have been present for 1 day and indicates a pain score of Nonresponsive. MEDICAL/SURGICAL HISTORY: Carcinoma, breast. Hypertension. None. RADIATION DOSE: 33.86 CTDI (mGy) COMPARISON: [facility], CT HEAD W/O CONTRAST, 03/15/2018. . TECHNIQUE: CT of the head without contrast. Using automated exposure control and adjustment of the mA and/or kV according to patient size, radiation dose was kept as low as reasonably achievable to ob tain optimal diagnostic quality images. DICOM format image data is available electronically for revi ew and comparison. FINDINGS: Cerebrum: There is mild generalized atrophy and ventricles are normal given the degree of atrophy. M ild periventricular white matter change is present. No midline shift, mass lesion, hemorrhage or acu te infarction. No extraaxial fluid collections are seen. Posterior Fossa: The cerebellum and brainstem demonstrate no acute abnormality. The 4th ventricle is midline. The cerebellopontine angle is within normal limits. Extracranial: The visualized sinuses are clear. Skull: The calvaria is intact. No skull fracture. CONCLUSION: 1. Stable noncontrast head CT. No acute intracranial abnormality is identified. 2. Stable chronic findings include generalized atrophy and mild chronic periventricular white matter change. These findings were telephoned to Dr. Payne on 04/17/2018 at 7:45 AM. Electronically signed by: Estevan rGaham MD 04/17/2018 7:49 AM EDT
[2018-04-17 07:53] LABS: Activated Partial Thrombo Time 25.9 sec (24.3-30.1); INR 1.1 Ratio; Prothrombin Time 11.1 sec (9.8-11.6)
[2018-04-17 08:17] LABS: Creatine Kinase 37 U/L (26-192)
--- NOTE | 2018-04-17 08:38 | P.PNIM ---
Subjective Interval history: f/u; stroke alert patient reportedly had a tonic-clonic seizure earlier this morning with questionable facial droop- for which stroke alert was called. now in no acute distress. awake but is confused and doesn't recall the incident earlier. complaining of mild numbness of both hands. denies abdominal pain,nausea,vomiting. Physical Exam Vital signs: Vital Signs 04/16/18 12:00 04/16/18 16:00 04/16/18 20:00 Temperature 99.0 F 97.9 F 98.3 F Pulse Rate 73 71 68 Respiratory Rate 18 18 18 Blood Pressure 157/90 H 172/94 H 153/98 H Pulse Oximetry 99 99 98 04/17/18 00:00 04/17/18 04:00 04/17/18 07:22 Temperature 98.2 F 98.5 F Pulse Rate 71 66 Respiratory Rate 18 18 Blood Pressure 176/95 H 172/93 H Pulse Oximetry 98 98 98 Intake & Output 04/16/18 04/17/18 04/17/18 18:59 06:59 18:59 Intake Total 1480 / 1480 1570 / 1570 Output Total 1400 / 1400 Balance 1480 / 1480 170 / 170 Weight 64.3 kg Intake: IV 1000 / 1000 1000 / 1000 NS Inj 1,000 ML @ 100 mls/hr IV 1000 / 1000 1000 / 1000 .CONT .Q10H [facility]AC[facility] Rx#:[id number] Oral 480 / 480 570 / 570 Output: Urine 1400 / 1400 Other: # Voids 2 Date of Last Bowel Movement 04/15/18 # Bowel Movements 0 0 - Constitutional no acute distress - Routine Respiratory Exam Present: CTA bilaterally - Routine Cardiovascular Exam Present: RRR - Routine Abdominal Exam Present: soft - Routine Extremities Exam Comments: no pedal edema. - Routine Neurological Exam Present: moving all extremities awake but mildly confused. Results - Labs CBC & Chem 7: 04/17/18 07:22 04/17/18 04:52 Laboratory Results - last 24 hr 04/17/18 04/17/18 04/17/18 04:52 04:52 07:10 WBC 5.9 D RBC 3.51 L Hgb 11.8 POC Hgb (Calc) Hct 34.6 L POC Hct MCV 98.6 MCH 33.5 MCHC 34.0 RDW 17.0 Plt Count 247 MPV 7.4 Neut % (Auto) 65.6 Lymph % (Auto) 20.8 [place] % (Auto) 10.7 H Eos % (Auto) 1.5 Baso % (Auto) 1.4 Neut # (Auto) 3.9 Lymph # (Auto) 1.2 [place] # (Auto) 0.6 Eos # (Auto) 0.1 Baso # (Auto) 0.1 WBC Differential . Differential Comment Auto diff final PT INR APTT Fibrinogen POC Sodium Sodium 140 POC Potassium Potassium 3.3 L POC Chloride Chloride 110 H Carbon Dioxide 17.2 L Anion Gap 13 POC BUN BUN 7 Creatinine 0.74 POC Creatinine Estimated GFR 78 L POC Glucose 130 H Random Glucose 100 Calcium 8.3 L Total Bilirubin 0.4 AST 39 H ALT 18 Alkaline Phosphatase 89 Total Creatine Kinase Troponin I Total Protein 7.0 D Albumin 3.0 L Lipase 544 H 04/17/18 04/17/18 04/17/18 07:22 07:22 07:22 WBC 6.9 RBC 3.73 L Hgb 12.3 POC Hgb (Calc) Hct 37.7 POC Hct MCV 101.2 H MCH 33.0 MCHC 32.6 RDW 17.5 H Plt Count 277 MPV 6.8 L Neut % (Auto) 57.9 Lymph % (Auto) 28.2 [place] % (Auto) 12.5 H Eos % (Auto) 0.9 Baso % (Auto) 0.5 Neut # (Auto) 4.0 Lymph # (Auto) 1.9 [place] # (Auto) 0.9 Eos # (Auto) 0.1 Baso # (Auto) 0.0 WBC Differential . Differential Comment Auto diff final PT 11.1 INR 1.1 APTT 25.9 Fibrinogen 301 POC Sodium Sodium POC Potassium Potassium POC Chloride Chloride Carbon Dioxide Anion Gap POC BUN BUN Creatinine POC Creatinine Estimated GFR POC Glucose Random Glucose Calcium Total Bilirubin AST ALT Alkaline Phosphatase Total Creatine Kinase 37 Troponin I Less than 0.02 L Total Protein Albumin Lipase 04/17/18 07:22 WBC RBC Hgb POC Hgb (Calc) 11.9 Hct POC Hct 35.0 MCV MCH MCHC RDW Plt Count MPV Neut % (Auto) Lymph % (Auto) [place] % (Auto) Eos % (Auto) Baso % (Auto) Neut # (Auto) Lymph # (Auto) [place] # (Auto) Eos # (Auto) Baso # (Auto) WBC Differential Differential Comment PT INR APTT Fibrinogen POC Sodium 139 Sodium POC Potassium 3.1 L Potassium POC Chloride 110 Chloride Carbon Dioxide Anion Gap POC BUN 5 BUN Creatinine POC Creatinine 0.5 L Estimated GFR POC Glucose 132 H Random Glucose Calcium Total Bilirubin AST ALT Alkaline Phosphatase Total Creatine Kinase Troponin I Total Protein Albumin Lipase - Imaging Impressions Head CT 04/17/18 07:21 CONCLUSION: 1. Stable noncontrast head CT. No acute intracranial abnormality is identified. 2. Stable chronic findings include generalized atrophy and mild chronic periventricular white matter change. These findings were telephoned to Dr. Payne on 04/17/2018 at 7:45 AM. - Procedures None Assessment and Plan - Plan stroke alert 04/17/ likely alcohol- withdrawal seizure patient reportedly had a tonic-clonic seizure earlier this morning- now is awake but confused CT head with no acute stroke keep NPO and continue with IV fluid- seizure precautions- obtain EEG and consult neurology. consult ST/PT Recurrent acute on chronic pancreatitis CT abdomen noted . Continue with conservative treatments, IV fluid hydration . Alcohol cessation strongly advised Pain management accordingly Monitor lipase level EtOH abuse -Counseled cessation -CIWA protocol ,rally pack Hypertension -Continue home medication Hypothyroid -Continue home medication Hypokalemia -will replace and monitor. DVT prevention-heparin
[2018-04-17] MEDS ORDERED: CREON PO SCH (09:00)
--- NOTE | 2018-04-17 09:12 | P.CONNEU ---
History of Present Illness Service: Neurology Primary Care Provider: Maxi Branch MD Family Provider: Maxi Branch MD Chief Complaint: Nausea and vomiting History of Present Illness: 9-year-old female admitted for pancreatitis history of ethanol abuse. Her daughter apparently got her 24 7 caregivers over the past 3 weeks to watch over her. She denies any history of seizure TIA or stroke. caregiver who is at her bedside she began shaking frothing at the mouth having what appeared to be a convulsion to her. Code rapid was called and there is some questionable history of her having some difficulty with speech the thereby called a stroke alert. Her symptoms had resolved. She had a CT brain scan performed which not show any acute lesion. Her last alcoholic beverage was this past Monday. Review of Systems All other systems reviewed negative except as stated in HPI [facility] - History History Provided By: Patient, Medical Record - Medical History Medical History: Medical History (Last Reviewed 04/17/18 @ 08:52 by Moon Laboy, [employer]) H/O: hysterectomy (Acute) Depression History of cancer of left breast Hypertension Pancreatitis Abuse, drug or alcohol Appendicitis Hypothyroid - Family History Family History: Family History (Last Reviewed 04/16/18 @ 15:55 by Criss José) Other Family history non-contributory - Tobacco History Second Hand Smoke Exposure: No Smoking Status: Former smoker Tobacco Type: Cigarettes - Alcohol History How Often Do You Have a Drink Containing Alcohol: 2 to 3 times a week - Substance Use History Substance History: Active Abuse - Travel History Recent Travel in the [place] Within the Last 8 Weeks: No Recent Travel Out of the Country Within the Last 8 Weeks: No - Immunization History Tetanus Immunization: >5 Years Hx Influenza Vaccine This Season: Yes Medications and Allergies Active Medications: Active Medications Acetaminophen (Tylenol) 650 mg PO Q4H PRN PRN Reason: HEADACHE OR TEMP > 101 F Last Admin: 04/17/18 06:46 Dose: 650 mg Al Hydroxide/Mg Hydroxide (Milk Of Magnesia Liq) 30 ml PO Q12H PRN PRN Reason: Mild Constipation Bisacodyl (Dulcolax Supp) 10 mg RECTAL DAILY PRN PRN Reason: SEVERE CONSITIPATION Enalaprilat (Vasotec Inj) 2.5 mg IV.PUSH Q6H PRN PRN Reason: SBP>160, DBP>90 Last Admin: 04/17/18 01:01 Dose: 2.5 mg Flumazenil (Romazecon Inj) 0.2 mg IV.PUSH Q1M PRN PRN Reason: OVERSEDATION Haloperidol Lactate (Haldol Inj) 1 mg IV.PUSH Q15M PRN PRN Reason: for severe agitation Heparin Sodium (Porcine) (Heparin Inj) 5,000 units SQ Q12H [facility] Last Admin: 04/17/18 06:46 Dose: 5,000 units Sodium Chloride (Ns Inj) 1,000 mls @ 100 mls/hr IV.CONT .Q10H [facility] Last Admin: 04/16/18 22:49 Dose: 100 mls/hr Potassium Chloride (Kcl 20 Meq Premix Inj) 20 meq in 100 mls @ 50 mls/hr IV.SIG ONCE ONE Stop: 04/17/18 10:38 Lactulose (Lactulose Liq) 30 ml PO DAILY PRN PRN Reason: SEVERE CONSITIPATION Levothyroxine Sodium (Synthroid) 75 mcg PO DAILY@0600 [facility] Last Admin: 04/17/18 06:46 Dose: 75 mcg Lorazepam (Ativan) 1 mg PO Q4H PRN PRN Reason: for CIWA 8-10 Lorazepam (Ativan) 2 mg PO Q2H PRN PRN Reason: for CIWA 11-14 Lorazepam (Ativan Inj) 2 mg IV.PUSH Q2H PRN PRN Reason: for CIWA 11-14 Lorazepam (Ativan Inj) 2 mg IV.PUSH Q1H PRN PRN Reason: for CIWA 15-20 Lorazepam (Ativan Inj) 2 mg IV.PUSH Q15M PRN PRN Reason: for CIWA > 20 Lorazepam (Ativan Inj) 1 mg IV.PUSH Q4H PRN PRN Reason: for CIWA 8-10 Losartan Potassium (Cozaar) 100 mg PO DAILY [facility] Last Admin: 04/16/18 09:10 Dose: 100 mg Morphine Sulfate (Morphine Inj) 2 mg IV.PUSH Q4H PRN PRN Reason: pain 6-10 Ondansetron HCl (Zofran Inj) 4 mg IV.PUSH Q6H PRN PRN Reason: NAUSEA OR VOMITING Last Admin: 04/15/18 12:55 Dose: 4 mg Pantoprazole Sodium (Protonix Inj) 40 mg IV.PUSH Q24H [facility] Pt Own Med: Pristiq (Desvenlafaxine) 100mg Po Daily 1 each PO DAILY [facility] Patient Own Medication: Creon 36 ,000/114,000,180,[address] 0 each PO TID [facility] Senna/Docusate Sodium (Olivia-Colace) 1 tab PO BID [facility] Last Admin: 04/16/18 21:28 Dose: 1 tab Sennosides (Senokot) 17.2 mg PO Q12H PRN PRN Reason: Moderate Constipation Allergies Allergy/AdvReac Type Severity Reaction Status Date / Time Sulfa (Sulfonamide Allergy Intermediate rash Verified 03/15/18 10:15 Antibiotics) Penicillins Allergy Unknown Weakness Verified 03/15/18 10:15 Home Medications Medication Instructions Recorded Confirmed Type levothyroxine [Synthroid] 75 mcg PO DAILY 03/15/18 04/15/18 History desvenlafaxine succinate 100 mg PO DAILY 04/15/18 04/15/18 History [id number] [Creon] 2 cap PO TID 04/15/18 04/15/18 History losartan 100 mg PO DAILY 04/15/18 04/15/18 History promethazine 25 mg PO Q6H PRN 04/15/18 04/15/18 History Exam Vital signs: Vital Signs 04/16/18 12:00 04/16/18 16:00 04/16/18 20:00 Temperature 99.0 F 97.9 F 98.3 F Pulse Rate 73 71 68 Respiratory Rate 18 18 18 Blood Pressure 157/90 H 172/94 H 153/98 H Pulse Oximetry 99 99 98 04/17/18 00:00 04/17/18 01:40 04/17/18 04:00 Temperature 98.2 F 98.5 F Pulse Rate 71 66 Respiratory Rate 18 18 Blood Pressure 176/95 H 167/87 H 172/93 H Pulse Oximetry 98 98 04/17/18 07:15 04/17/18 07:21 04/17/18 07:22 Temperature Pulse Rate 100 H 98 H Respiratory Rate 32 H Blood Pressure 220/109 H 199/103 H Pulse Oximetry 97 96 98 04/17/18 07:25 Temperature Pulse Rate 102 H Respiratory Rate 24 Blood Pressure 182/99 H Pulse Oximetry 96 Intake & Output 04/16/18 04/17/18 04/17/18 18:59 06:59 18:59 Intake Total 1480 / 1480 1570 / 1570 Output Total 1400 / 1400 Balance 1480 / 1480 170 / 170 Weight 64.3 kg Intake: IV 1000 / 1000 1000 / 1000 NS Inj 1,000 ML @ 100 mls/hr IV 1000 / 1000 1000 / 1000 .CONT .Q10H [facility] Rx#:[id number] Oral 480 / 480 570 / 570 Output: Urine 1400 / 1400 Other: # Voids 2 Date of Last Bowel Movement 04/15/18 # Bowel Movements 0 0 Narrative: GENERAL: Well-nourished, well-developed adult female in no obvious distress. SKIN: Warm and dry. HEAD: Atraumatic. Normocephalic. CARDIOVASCULAR: Regular rate and rhythm. RESPIRATORY: No accessory muscle use. GASTROINTESTINAL: Abdomen soft, epigastric and suprapubic tenderness, non- distended. MUSCULOSKELETAL: Extremities without clubbing, cyanosis, or edema. NEUROLOGICAL: Awake and alert. Oriented x3, no aphasia, pleasant appropriate, slightly monotone speech, visual [place] full no facial asymmetry tongue midline no involuntary movements noted. No pronator drift able raise all 4 extremity gravity for at least 10 seconds. Gait not assessed secondary to potential fall risk no obvious cranial nerve deficits. Motor grossly within normal limits. Normal speech. PSYCHIATRIC: Smiling denies any depression looks well, - Constitutional no acute distress - Routine HEENT Exam Head: Present: normocephalic Eye: Present: EOMI, PERRL ENT: Present: mucous membranes moist Results - Labs CBC & Chem 7: 04/17/18 07:22 04/17/18 04:52 Labs: Laboratory Results - last 24 hr 04/17/18 04/17/18 04/17/18 04:52 04:52 07:10 WBC 5.9 D RBC 3.51 L Hgb 11.8 POC Hgb (Calc) Hct 34.6 L POC Hct MCV 98.6 MCH 33.5 MCHC 34.0 RDW 17.0 Plt Count 247 MPV 7.4 Neut % (Auto) 65.6 Lymph % (Auto) 20.8 [place] % (Auto) 10.7 H Eos % (Auto) 1.5 Baso % (Auto) 1.4 Neut # (Auto) 3.9 Lymph # (Auto) 1.2 [place] # (Auto) 0.6 Eos # (Auto) 0.1 Baso # (Auto) 0.1 WBC Differential . Differential Comment Auto diff final PT INR APTT Fibrinogen POC Sodium Sodium 140 POC Potassium Potassium 3.3 L POC Chloride Chloride 110 H Carbon Dioxide 17.2 L Anion Gap 13 POC BUN BUN 7 Creatinine 0.74 POC Creatinine Estimated GFR 78 L POC Glucose 130 H Random Glucose 100 Calcium 8.3 L Total Bilirubin 0.4 AST 39 H ALT 18 Alkaline Phosphatase 89 Total Creatine Kinase Troponin I Total Protein 7.0 D Albumin 3.0 L Lipase 544 H Blood Type Antibody Screen 04/17/18 04/17/18 04/17/18 07:22 07:22 07:22 WBC 6.9 RBC 3.73 L Hgb 12.3 POC Hgb (Calc) Hct 37.7 POC Hct MCV 101.2 H MCH 33.0 MCHC 32.6 RDW 17.5 H Plt Count 277 MPV 6.8 L Neut % (Auto) 57.9 Lymph % (Auto) 28.2 [place] % (Auto) 12.5 H Eos % (Auto) 0.9 Baso % (Auto) 0.5 Neut # (Auto) 4.0 Lymph # (Auto) 1.9 [place] # (Auto) 0.9 Eos # (Auto) 0.1 Baso # (Auto) 0.0 WBC Differential . Differential Comment Auto diff final PT 11.1 INR 1.1 APTT 25.9 Fibrinogen 301 POC Sodium Sodium POC Potassium Potassium POC Chloride Chloride Carbon Dioxide Anion Gap POC BUN BUN Creatinine POC Creatinine Estimated GFR POC Glucose Random Glucose Calcium Total Bilirubin AST ALT Alkaline Phosphatase Total Creatine Kinase 37 Troponin I Less than 0.02 L Total Protein Albumin Lipase Blood Type Antibody Screen 04/17/18 04/17/18 07:22 07:22 WBC RBC Hgb POC Hgb (Calc) 11.9 Hct POC Hct 35.0 MCV MCH MCHC RDW Plt Count MPV Neut % (Auto) Lymph % (Auto) [place] % (Auto) Eos % (Auto) Baso % (Auto) Neut # (Auto) Lymph # (Auto) [place] # (Auto) Eos # (Auto) Baso # (Auto) WBC Differential Differential Comment PT INR APTT Fibrinogen POC Sodium 139 Sodium POC Potassium 3.1 L Potassium POC Chloride 110 Chloride Carbon Dioxide Anion Gap POC BUN 5 BUN Creatinine POC Creatinine 0.5 L Estimated GFR POC Glucose 132 H Random Glucose Calcium Total Bilirubin AST ALT Alkaline Phosphatase Total Creatine Kinase Troponin I Total Protein Albumin Lipase Blood Type O Positive Antibody Screen Negative - Imaging Impressions Head CT 04/17/18 07:21 CONCLUSION: 1. Stable noncontrast head CT. No acute intracranial abnormality is identified. 2. Stable chronic findings include generalized atrophy and mild chronic periventricular white matter change. These findings were telephoned to Dr. Payne on 04/17/2018 at 7:45 AM. Review/Management - Diagnosis (1) Seizure Code(s): R56.9 - Unspecified convulsions Status: Acute Current Visit: Yes (2) ETOH abuse Code(s): F10.10 - Alcohol abuse, uncomplicated Status: Acute Current Visit: Yes (3) Acute pancreatitis Code(s): K85.90 - Acute pancreatitis without necrosis or infection, unspecified Status: Acute Current Visit: Yes (4) H/O: hysterectomy Code(s): Z90.710 - Acquired absence of both cervix and uterus Status: Acute Current Visit: No - Review/Management Plan: Probable alcohol withdrawal seizure Based on the symptomatology and resolution of symptoms not IV TPA candidate Lesser likely TIA Recommendations EEG, MRI MRA brain and carotid Follow-up mag level, TSH, B12 On CIWA per protocol IV Celebrex for now Aspirin Seizure fall precautions No driving swimming or operating heavy machinery for at least 6 months of being seizure free Discussed with patient and her caregiver at bedside and medical (3) Acute pancreatitis Qualifiers: Pancreatitis type: unspecified pancreatitis type Acute pancreatitis complication: unspecified Qualified Code(s): K85.90 - Acute pancreatitis without necrosis or infection, unspecified
[2018-04-17] MEDS: Senna/Docusate Sodium 8.6/50 MG Tablet PO SCH ×2 (09:22→21:22)
[2018-04-17] MEDS: Sod Chloride 0.9% Inj 1,000 ML IV.CONT SCH ×3 (09:23→21:24)
[2018-04-17] MEDS: Potassium Chlor 10 mEq Premix 10 MEQ/100 ML PIGGYBACK IV.SIG SCH ×2 (09:40→10:55)
[2018-04-17] MEDS: Pantoprazole Inj 40 MG Vial IV.PUSH SCH (09:40)
[2018-04-17 09:46] LABS: Magnesium 1.5 mg/dL (1.5-2.5)
[2018-04-17 10:10] LABS: Vitamin B12 203 pg/mL (193-986)
[2018-04-17] MEDS: Fosphenytoin Inj 200 MGPE in Sodium Chlor 0.9% Inj 50 ML IV.SIG SCH ×2 (10:55→22:16)
[2018-04-17] MEDS ORDERED: Fosphenytoin Inj 1,000 MGPE in Sodium Chlor 0.9% Inj 50 ML IV.SIG ONE (13:00)
--- NOTE | 2018-04-17 14:52 | MR ---
EXAM DATE: 04/17/2018 2:23 PM EDT AGE/SEX: 72 years / Female INDICATIONS: . Abnormal gait. CLINICAL DATA: This is the patient's initial encounter. Patient reports that signs and symptoms have been present for 1 day and indicates a pain score of 7/10. MEDICAL/SURGICAL HISTORY: Carcinoma, breast. Pancreatitis. Appendectomy. Hysterectomy. Left b reast tumor sx. [place] [facility] [place]. . TECHNIQUE: Multiplanar, multisequence examination of the brain was performed without and with 5 ml Ga davist (gadobutrol) contrast as a single exam dose. FINDINGS: There is no evidence for intracranial hemorrhage, mass effect, mass lesions, edema, or extra-axial fl uid collections. The ventricles are prominent probably due to atrophic changes. There are no signs of acute infarction for technique. The diffusion portion, and postcontrast portion are unremarkable. Slight degree of brain atrophy is seen. Slight periventricular white matter changes are seen nonspec ific mostly consistent with chronic small vessel ischemic changes. CONCLUSION: Chronic small vessel ischemic and atrophic changes. Electronically signed by: Robert Vegas MD 04/17/2018 2:51 PM EDT
--- NOTE | 2018-04-17 14:55 | MR ---
EXAM DATE: 04/17/2018 2:43 PM EDT AGE/SEX: 72 years / Female INDICATIONS: . Abnormal gait. CLINICAL DATA: This is the patient's initial encounter. Patient reports that signs and symptoms have been present for 1 day and indicates a pain score of 4/10. MEDICAL/SURGICAL HISTORY: Carcinoma, breast. Pancreatitis. Hysterectomy. Appendectomy. Left b reast tumor sx. COMPARISON: No prior exams available for comparison. TECHNIQUE: 3D [id number] MRA was performed. Source images, multiplanar STS MIP, and 3D volum e MIP reconstructions were reviewed. FINDINGS: There is excellent visualization of the major intracranial arteries out to the second-order branch ve ssels. There is no evidence for aneurysm, vessel truncation or stenosis, and no evidence for vascula r malformation. CONCLUSION: 1. Negative MRA [place] ([place]) non contrast. Electronically signed by: Robert Vegas MD 04/17/2018 2:53 PM EDT
[2018-04-17] MEDS ORDERED: Gadobutrol PF 7.5 MMOL/7.5 ML Vial (for RAD) IV.SIG ONE (14:57)
--- NOTE | 2018-04-17 15:01 | US ---
EXAM DATE: 04/17/2018 2:51 PM EDT AGE/SEX: 72 years / Female INDICATIONS: Transient ischemic attack. CLINICAL DATA: This is the patient's subsequent encounter. Patient reports that signs and symptoms h ave been present for 1 day and indicates a pain score of 0/10. MEDICAL/SURGICAL HISTORY: Hypertension. Hypothyroidism. Pancreatitis. Left breast cancer. Ap pendicitis. Alcohol abuse. Hysterectomy. COMPARISON: No prior exams available for comparison. VELOCITY PARAMETERS: ICA/CCA Ratio: Right 0.9 , Left 1.1 ICA: Right 62 cm/sec, Left 90 cm/sec CCA: Right 71 cm/sec, Left 79 cm/sec ECA: Right 57 cm/sec, Left 55 cm/sec Vertebral: Right 34 cm/sec antegrade, Left 52 cm/sec antegrade FINDINGS: Antegrade flow is seen in both vertebral arteries. There is mild atherosclerotic plaquing at the orig in of both ICAs without any significant stenosis. Elevated flow velocities and ICA/CCA ratios have been found to correlate with increased degrees of vessel stenosis, calculated as percentage of diameter relative to a normal segment of distal ICA. CONCLUSION: No evidence for hemodynamically significant stenosis. Electronically signed by: Robert Vegas MD 04/17/2018 3:00 PM EDT
[2018-04-17] MEDS: chlordiazePOXIDE 25 MG Capsule PO SCH ×2 (15:34→18:34)
--- NOTE | 2018-04-17 19:52 | ECG ---
Date Performed: 04/17/2018 Time Performed: 07:22:10 PTAGE: 72 years EKG: SINUS TACHYCARDIA MODERATE ST DEPRESSION ABNORMAL ECG INTERPRETATION BASED ON A DEFAULT AGE OF 40 YEARS PREVIOUS TRACING : 04/15/2018 02.22 Since the previous tracing, no significant change not ed DOCTOR: Lucero Caballero Interpretating Date/Time 04/17/2018 19:50:53
[2018-04-17] MEDS: Morphine Inj 4 MG/ML Vial IV.PUSH PRN (21:23)
[2018-04-18] MEDS: chlordiazePOXIDE 25 MG Capsule PO SCH ×4 (00:58→18:00)
[2018-04-18] MEDS: Sod Chloride 0.9% Inj 1,000 ML IV.CONT SCH ×3 (06:07→23:58)
[2018-04-18] MEDS: Levothyroxine 75 MCG Tablet PO SCH (06:08)
[2018-04-18] MEDS: Heparin - SQ 10,000 UNITS/ML Vial SQ SCH ×2 (06:08→17:06)
[2018-04-18 07:04] LABS: Anion Gap 10 meq/L (5-15); Blood Urea Nitrogen 3 mg/dL (7-18); Calcium 8.1 mg/dL (8.5-10.1); Carbon Dioxide 22.2 meq/L (21.0-32.0); Chloride 108 meq/L (98-107); Glomerular Filtration Rate Greater Than 89 mL/min (>89); Glucose,Random 90 mg/dL (74-106); Sodium 140 meq/L (136-145)
[2018-04-18 07:05] LABS: Phenytoin (Dilantin) 16.5 mcg/mL (10.0-20.0)
[2018-04-18 07:08] LABS: Potassium 2.9 meq/L (3.5-5.1)
--- NOTE | 2018-04-18 07:57 | MG ---
cc: Brandon Payne MD DATE: 04/17/2018. ELECTROENCEPHALOGRAM RECORD NUMBER: [id number] DESCRIPTION: A 6-7 Hz posterior rhythm. Myogenic artifact more prominent in the right frontotemporal region, generalized slowing, transition to drowsy state. Good EEG variability reactivity, good arousal from sleep state with 18 Hz background. Occasional small posterior occipital sharp transients. Sharply contoured frontal theta, epoch 98. EKG showing sinus rhythm. Reduced driving with photic stimulation. INTERPRETATION: Normal awake sleep electroencephalogram. No active seizure activity. Clinical correlation. MD SPRING Montanez/lori/brenda , 09:46 PM , 09:51 PM MTDD
--- NOTE | 2018-04-18 08:27 | P.PNNEU ---
Subjective Subjective Comments: Slept well no seizures denies any headache vision loss focal weakness Active Medications: Active Medications Acetaminophen (Tylenol) 650 mg PO Q4H PRN PRN Reason: HEADACHE OR TEMP > 101 F Last Admin: 04/17/18 06:46 Dose: 650 mg Al Hydroxide/Mg Hydroxide (Milk Of Magnesia Liq) 30 ml PO Q12H PRN PRN Reason: Mild Constipation Aspirin (Ecotrin) 325 mg PO DAILY [facility] Last Admin: 04/17/18 09:40 Dose: 325 mg Bisacodyl (Dulcolax Supp) 10 mg RECTAL DAILY PRN PRN Reason: SEVERE CONSITIPATION Chlordiazepoxide (Librium) 25 mg PO Q6H [facility] Last Admin: 04/18/18 06:08 Dose: 25 mg Enalaprilat (Vasotec Inj) 2.5 mg IV.PUSH Q6H PRN PRN Reason: SBP>160, DBP>90 Last Admin: 04/17/18 01:01 Dose: 2.5 mg Flumazenil (Romazecon Inj) 0.2 mg IV.PUSH Q1M PRN PRN Reason: OVERSEDATION Haloperidol Lactate (Haldol Inj) 1 mg IV.PUSH Q15M PRN PRN Reason: for severe agitation Heparin Sodium (Porcine) (Heparin Inj) 5,000 units SQ Q12H [facility] Last Admin: 04/18/18 06:08 Dose: 5,000 units Sodium Chloride (Ns Inj) 1,000 mls @ 100 mls/hr IV.CONT .Q10H [facility] Last Admin: 04/18/18 06:07 Dose: 100 mls/hr Fosphenytoin Sodium 200 mgpe/ (Sodium Chloride) 54 mls @ 216 mls/hr IV.SIG Q12HR [facility] Last Infusion: 04/17/18 22:31 Dose: Infused Lactulose (Lactulose Liq) 30 ml PO DAILY PRN PRN Reason: SEVERE CONSITIPATION Levothyroxine Sodium (Synthroid) 75 mcg PO DAILY@0600 [facility] Last Admin: 04/18/18 06:08 Dose: 75 mcg Lorazepam (Ativan) 1 mg PO Q4H PRN PRN Reason: for CIWA 8-10 Lorazepam (Ativan) 2 mg PO Q2H PRN PRN Reason: for CIWA 11-14 Lorazepam (Ativan Inj) 2 mg IV.PUSH Q2H PRN PRN Reason: for CIWA 11-14 Last Admin: 04/18/18 00:59 Dose: 2 mg Lorazepam (Ativan Inj) 2 mg IV.PUSH Q1H PRN PRN Reason: for CIWA 15-20 Lorazepam (Ativan Inj) 2 mg IV.PUSH Q15M PRN PRN Reason: for CIWA > 20 Lorazepam (Ativan Inj) 1 mg IV.PUSH Q4H PRN PRN Reason: for CIWA 8-10 Losartan Potassium (Cozaar) 100 mg PO DAILY [facility] Last Admin: 04/17/18 09:21 Dose: 100 mg Morphine Sulfate (Morphine Inj) 2 mg IV.PUSH Q4H PRN PRN Reason: pain 6-10 Last Admin: 04/17/18 21:23 Dose: 2 mg Ondansetron HCl (Zofran Inj) 4 mg IV.PUSH Q6H PRN PRN Reason: NAUSEA OR VOMITING Last Admin: 04/15/18 12:55 Dose: 4 mg Pantoprazole Sodium (Protonix Inj) 40 mg IV.PUSH Q24H [facility] Last Admin: 04/17/18 09:40 Dose: 40 mg Pt Own Med: Pristiq (Desvenlafaxine) 100mg Po Daily 1 each PO DAILY [facility] Patient Own Medication: Creon 36 ,000/114,000,180,[address] 0 each PO TID [facility] Senna/Docusate Sodium (Olivia-Colace) 1 tab PO BID [facility] Last Admin: 04/17/18 21:22 Dose: Not Given Sennosides (Senokot) 17.2 mg PO Q12H PRN PRN Reason: Moderate Constipation Allergies/Adverse Reactions: Allergies Allergy/AdvReac Type Severity Reaction Status Date / Time Sulfa (Sulfonamide Allergy Intermediate rash Verified 03/15/18 10:15 Antibiotics) Penicillins Allergy Unknown Weakness Verified 03/15/18 10:15 Review of Systems All other systems reviewed negative except as stated in HPI Physical Exam Vital signs: Vital Signs 04/17/18 11:27 04/17/18 12:00 04/17/18 16:00 Temperature 98.4 F 98.7 F Pulse Rate 68 79 Respiratory Rate 18 18 Blood Pressure 166/100 H 159/86 H Pulse Oximetry 100 100 100 04/17/18 20:00 04/18/18 00:00 04/18/18 01:02 Temperature 98 F 98.0 F Pulse Rate 74 72 74 Respiratory Rate 20 18 Blood Pressure 167/79 H 153/77 H Pulse Oximetry 100 98 04/18/18 03:45 04/18/18 04:00 04/18/18 08:14 Temperature 98.2 F Pulse Rate 63 61 Respiratory Rate 22 Blood Pressure 140/71 Pulse Oximetry 100 97 Intake & Output 04/17/18 04/18/18 04/18/18 18:59 06:59 18:59 Intake Total 1564 / 1564 2724 / 2724 Output Total 1850 / 1850 Balance 1564 / 1564 874 / 874 Weight 65.1 kg Intake: IV 1324 / 1324 2013 NS Inj 1,000 ML @ 100 mls/hr IV 1000 / 1000 1959 / 1959 .CONT .Q10H [facility] Rx#:[id number] Cerebyx Inj 200 MGPE In NS Inj 54 / 54 54 / 54 50 ML @ 216 mls/hr IV.SIG Q12HR [facility] Rx#:[id number] Cerebyx Inj 1,000 MGPE In NS 70 / 70 Inj 50 ML @ 280 mls/hr IV.SIG ONCE ONE Rx#:[id number] KCl 10 mEq Premix Inj 10 meq In 200 / 200 100 ml @ 100 mls/hr IV.SIG Q1H [facility] Rx#:[id number] Oral 240 / 240 710 / 710 Output: Urine 1849 / 1849 Other: # Voids 3 Date of Last Bowel Movement 04/15/18 04/17/18 # Bowel Movements 2 1 Narrative: GENERAL: No acute distress, resting SKIN: Warm and dry. No rash. HEAD: Atraumatic. Normocephalic. EYES: Pupils equal and round. No scleral icterus. No injection or drainage. ENT: No nasal bleeding or discharge. Mucous membranes pink and moist. NECK: Trachea midline. CARDIOVASCULAR: Regular rate and rhythm. RESPIRATORY: No accessory muscle use. Clear to auscultation. GASTROINTESTINAL: Abdomen soft, non-tender, nondistended. MUSCULOSKELETAL: Extremities without clubbing, cyanosis, or edema. No obvious deformities. NEUROLOGICAL: Resting but oriented to person and place follows pleasant exact movements intact no facial asymmetry moving all extremities to gravity PSYCHIATRIC: Pleasant appropriate - Constitutional no acute distress - Routine HEENT Exam Head: Present: normocephalic Eye: Present: EOMI Objective Laboratory Results - last 24 hr 04/17/18 04/17/18 04/18/18 07:22 07:22 06:10 Sodium 140 Potassium 2.9 L* Chloride 108 H Carbon Dioxide 22.2 Anion Gap 10 BUN 3 L Creatinine 0.62 Estimated GFR Greater than 89 Random Glucose 90 Calcium 8.1 L Magnesium 1.5 Vitamin B12 203 TSH 3.030 Phenytoin Less than 0.4 L 16.5 Blood Type O Positive Antibody Screen Negative Review/Management - Diagnosis (1) Seizure Code(s): R56.9 - Unspecified convulsions Status: Acute Current Visit: Yes (2) ETOH abuse Code(s): F10.10 - Alcohol abuse, uncomplicated Status: Acute Current Visit: Yes (3) Acute pancreatitis Code(s): K85.90 - Acute pancreatitis without necrosis or infection, unspecified Status: Acute Current Visit: Yes (4) H/O: hysterectomy Code(s): Z90.710 - Acquired absence of both cervix and uterus Status: Acute Current Visit: No - Review/Management Plan: Probable alcohol withdrawal seizure Based on the symptomatology and resolution of symptoms not IV TPA candidate Lesser likely TIA EEG no active seizures MRI MRA brain stable carotid ultrasound no significant vaso-occlusive occlusive disease Recommendations Dilantin level 16.5 Change to Dilantin p.o. Low B12. B12 supplementation Seizure fall precautions No driving swimming or operating heavy machinery for at least 6 months of being seizure free Discussed with patient and her caregiver at bedside and medical (3) Acute pancreatitis Qualifiers: Pancreatitis type: unspecified pancreatitis type Acute pancreatitis complication: unspecified Qualified Code(s): K85.90 - Acute pancreatitis without necrosis or infection, unspecified
--- NOTE | 2018-04-18 08:35 | P.PN ---
Subjective Interval history: awakes to voice, oriented x 2, no seizures overnight. Did receive Ativan per CIWA last night, and did well after. Slept well, wants something to drink. Denies any cp, no sob, c/o dry throat. Caregiver at [facility]. Physical Exam Vital signs: Vital Signs 04/17/18 11:27 04/17/18 12:00 04/17/18 16:00 Temperature 98.4 F 98.7 F Pulse Rate 68 79 Respiratory Rate 18 18 Blood Pressure 166/100 H 159/86 H Pulse Oximetry 100 100 100 04/17/18 20:00 04/18/18 00:00 04/18/18 01:02 Temperature 98 F 98.0 F Pulse Rate 74 72 74 Respiratory Rate 20 18 Blood Pressure 167/79 H 153/77 H Pulse Oximetry 100 98 04/18/18 03:45 04/18/18 04:00 04/18/18 08:14 Temperature 98.2 F Pulse Rate 63 61 Respiratory Rate 22 Blood Pressure 140/71 Pulse Oximetry 100 97 Intake & Output 04/17/18 04/18/18 04/18/18 18:59 06:59 18:59 Intake Total 1564 / 1564 2724 / 2724 Output Total 1850 / 1850 Balance 1564 / 1564 874 / 874 Weight 65.1 kg Intake: IV 1324 / 1324 2013 NS Inj 1,000 ML @ 100 mls/hr IV 1000 / 1000 1959 / 1960 .CONT .Q10H [facility] Rx#:[id number] Cerebyx Inj 200 MGPE In NS Inj 54 / 54 54 / 54 50 ML @ 216 mls/hr IV.SIG Q12HR [facility] Rx#:[id number] Cerebyx Inj 1,000 MGPE In NS 70 / 70 Inj 50 ML @ 280 mls/hr IV.SIG ONCE ONE Rx#:[id number] KCl 10 mEq Premix Inj 10 meq In 200 / 200 100 ml @ 100 mls/hr IV.SIG Q1H [facility] Rx#:[id number] Oral 240 / 240 710 / 710 Output: Urine 1850 / 1850 Other: # Voids 3 Date of Last Bowel Movement 04/15/18 04/17/18 # Bowel Movements 2 1 Narrative: GENERAL: Well-nourished, well-developed patient in no apparent distress. SKIN: Warm and dry. HEAD: Atraumatic. Normocephalic. EYES: Pupils equal and round. No scleral icterus. No injection or drainage. ENT: No nasal bleeding or discharge. Mucous membranes pink and moist. NECK: Trachea midline. No JVD. CARDIOVASCULAR: Regular rate and rhythm. RESPIRATORY: No accessory muscle use. Clear to auscultation. Breath sounds equal bilaterally. GASTROINTESTINAL: Abdomen soft, non-tender, nondistended. Hepatic and splenic margins not palpable. MUSCULOSKELETAL: Extremities without clubbing, cyanosis, or edema. No obvious deformities. NEUROLOGICAL: Awakes to voice, oriented 2. Not sure about date. Following commands appropriately, no focal deficits. No seizure activity noted. No obvious cranial nerve deficits. Motor grossly within normal limits. Five out of 5 muscle strength in the arms and legs. Normal speech. PSYCHIATRIC: Appropriate Results - Labs CBC & Chem 7: 04/17/18 07:22 04/18/18 06:10 Laboratory Results - last 24 hr 04/17/18 04/17/18 04/18/18 07:22 07:22 06:10 Sodium 140 Potassium 2.9 L* Chloride 108 H Carbon Dioxide 22.2 Anion Gap 10 BUN 3 L Creatinine 0.62 Estimated GFR Greater than 89 Random Glucose 90 Calcium 8.1 L Magnesium 1.5 Vitamin B12 203 TSH 3.030 Phenytoin Less than 0.4 L 16.5 Blood Type O Positive Antibody Screen Negative - Imaging Impressions Head MRA 04/17/18 09:10 CONCLUSION: 1. Negative MRA Cow ([place]) non contrast. Carotid Doppler Study 04/17/18 09:11 CONCLUSION: No evidence for hemodynamically significant stenosis. Head MRI 04/17/18 09:11 CONCLUSION: Chronic small vessel ischemic and atrophic changes. - Procedures None Assessment and Plan - Assessment (1) Acute pancreatitis Code(s): K85.90 - Acute pancreatitis without necrosis or infection, unspecified Status: Acute (2) Seizure Code(s): R56.9 - Unspecified convulsions Status: Acute (3) Hypokalemia Code(s): E87.6 - Hypokalemia Status: Acute (4) ETOH abuse Code(s): F10.10 - Alcohol abuse, uncomplicated Status: Acute (5) Hypertension Code(s): I10 - Essential (primary) hypertension Status: Chronic (6) Depression Code(s): F32.9 - Major depressive disorder, single episode, unspecified Status : Chronic - Plan -Assessment/Plan Patient is a 72-year-old female with a past medical history of hypertension, depression, EtOH abuse and pancreatitis. She has been seen for pancreatitis multiple times, most recently November 2017. She initially presented 04/14/18 to the emergency room via EMS for suprapubic abdominal discomfort. She did complain of some dysuria. Also had a complaint of nausea. CT of the abdomen and pelvis noted that previous acute pancreatitis has improved. Stroke alert 04/17/ likely alcohol- withdrawal seizure had 2 tonic-clonic seizure 04/17 Better today, no seizures overnight. -Neurology input appreciated -Imaging studies reviewed, no acute findings -EEG normal -Seizure precautions -Continue Dilantin, level 16.5. Neurology changed to PO today -PT/ST today -remove restraints as pt. more cooperative -Aspiration precautions -Continue CIWA protocol Recurrent acute on chronic pancreatitis -CT abdomen noted . -Continue with conservative treatments, IV fluid hydration -Resume pancreatic enzymes -Alcohol cessation strongly advised -Pain management accordingly -Monitor lipase level -Adv diet as tolerated EtOH abuse -Counseled cessation -CIWA protocol ,rally pack Hypertension -Continue home medication Hypothyroid -Continue home medication Hypokalemia -K 2.9 today, replace and repeat at 1400 Labs in am DVT prevention-heparin PPI for GI prophylaxis D/W RN, caregiver/pt, CM. DC planning 2 days (1) Acute pancreatitis Qualifiers: Pancreatitis type: unspecified pancreatitis type Acute pancreatitis complication: unspecified Qualified Code(s): K85.90 - Acute pancreatitis without necrosis or infection, unspecified (5) Hypertension Qualifiers: Hypertension type: essential hypertension Qualified Code(s): I10 - Essential (primary) hypertension (6) Depression Qualifiers: Depression Type: unspecified Qualified Code(s): F32.9 - Major depressive disorder, single episode, unspecified
[2018-04-18] MEDS ORDERED: Potassium Chloride 25 MEQ Effervescent Tablet PO ONE (08:50)
[2018-04-18] MEDS ORDERED: Mag Sulf 1 gm/100 ml Premix 100 ML IV.SIG ONE (09:00)
[2018-04-18] MEDS: Phenytoin Sodium 100 MG Capsule PO SCH ×3 (09:21→17:06)
[2018-04-18] MEDS: Senna/Docusate Sodium 8.6/50 MG Tablet PO SCH ×2 (09:22→20:21)
[2018-04-18] MEDS: Pantoprazole Inj 40 MG Vial IV.PUSH SCH (09:23)
[2018-04-18] MEDS: Potassium Chlor 10 mEq Premix 10 MEQ/100 ML PIGGYBACK IV.SIG SCH ×2 (10:23→11:40)
[2018-04-18 14:25] LABS: Calcium 8.7 mg/dL (8.5-10.1); Carbon Dioxide 22.9 meq/L (21.0-32.0); Potassium 3.6 meq/L (3.5-5.1)
[2018-04-19] MEDS: chlordiazePOXIDE 25 MG Capsule PO SCH ×4 (00:38→19:04)
[2018-04-19] MEDS: Heparin - SQ 10,000 UNITS/ML Vial SQ SCH ×2 (06:16→17:47)
[2018-04-19] MEDS: Levothyroxine 75 MCG Tablet PO SCH (06:16)
[2018-04-19] MEDS: Pantoprazole Inj 40 MG Vial IV.PUSH SCH (09:09)
[2018-04-19] MEDS: Phenytoin Sodium 100 MG Capsule PO SCH ×3 (09:09→17:48)
[2018-04-19] MEDS: Senna/Docusate Sodium 8.6/50 MG Tablet PO SCH ×2 (09:10→20:44)
[2018-04-19] MEDS: Sod Chloride 0.9% Inj 1,000 ML IV.CONT SCH ×2 (09:17→20:44)
--- NOTE | 2018-04-19 09:28 | P.PNNEU ---
Subjective Subjective Comments: No seizures, denies any headache fever night sweats chills focal weakness Active Medications: Active Medications Acetaminophen (Tylenol) 650 mg PO Q4H PRN PRN Reason: HEADACHE OR TEMP > 101 F Last Admin: 04/17/18 06:46 Dose: 650 mg Al Hydroxide/Mg Hydroxide (Milk Of Magnesia Liq) 30 ml PO Q12H PRN PRN Reason: Mild Constipation Aspirin (Ecotrin) 325 mg PO DAILY [facility] Last Admin: 04/19/18 09:10 Dose: 325 mg Bisacodyl (Dulcolax Supp) 10 mg RECTAL DAILY PRN PRN Reason: SEVERE CONSITIPATION Chlordiazepoxide (Librium) 25 mg PO Q6H [facility] Last Admin: 04/19/18 06:17 Dose: 25 mg Cyanocobalamin (Vitamin B12 Inj) 1,000 mcg IM DAILY [facility] Stop: 04/24/18 09:01 Last Admin: 04/19/18 09:10 Dose: 1,000 mcg Cyanocobalamin (Vitamin B12 Inj) 1,000 mcg IM Q7D [facility] Stop: 05/22/18 09:01 Cyanocobalamin (Vitamin B12 Inj) 1,000 mcg IM Q30D [facility] Enalaprilat (Vasotec Inj) 2.5 mg IV.PUSH Q6H PRN PRN Reason: SBP>160, DBP>90 Last Admin: 04/17/18 01:01 Dose: 2.5 mg Flumazenil (Romazecon Inj) 0.2 mg IV.PUSH Q1M PRN PRN Reason: OVERSEDATION Haloperidol Lactate (Haldol Inj) 1 mg IV.PUSH Q15M PRN PRN Reason: for severe agitation Heparin Sodium (Porcine) (Heparin Inj) 5,000 units SQ Q12H [facility] Last Admin: 04/19/18 06:16 Dose: 5,000 units Sodium Chloride (Ns Inj) 1,000 mls @ 100 mls/hr IV.CONT .Q10H [facility] Last Admin: 04/19/18 09:17 Dose: 100 mls/hr Lactulose (Lactulose Liq) 30 ml PO DAILY PRN PRN Reason: SEVERE CONSITIPATION Levothyroxine Sodium (Synthroid) 75 mcg PO DAILY@0600 [facility] Last Admin: 04/19/18 06:16 Dose: 75 mcg Lorazepam (Ativan) 1 mg PO Q4H PRN PRN Reason: for CIWA 8-10 Lorazepam (Ativan) 2 mg PO Q2H PRN PRN Reason: for CIWA 11-14 Last Admin: 04/19/18 03:58 Dose: 2 mg Lorazepam (Ativan Inj) 2 mg IV.PUSH Q2H PRN PRN Reason: for CIWA 11-14 Last Admin: 04/18/18 00:59 Dose: 2 mg Lorazepam (Ativan Inj) 2 mg IV.PUSH Q1H PRN PRN Reason: for CIWA 15-20 Lorazepam (Ativan Inj) 2 mg IV.PUSH Q15M PRN PRN Reason: for CIWA > 20 Lorazepam (Ativan Inj) 1 mg IV.PUSH Q4H PRN PRN Reason: for CIWA 8-10 Losartan Potassium (Cozaar) 100 mg PO DAILY [facility] Last Admin: 04/19/18 09:10 Dose: 100 mg Morphine Sulfate (Morphine Inj) 2 mg IV.PUSH Q4H PRN PRN Reason: pain 6-10 Last Admin: 04/17/18 21:23 Dose: 2 mg Ondansetron HCl (Zofran Inj) 4 mg IV.PUSH Q6H PRN PRN Reason: NAUSEA OR VOMITING Last Admin: 04/15/18 12:55 Dose: 4 mg Pantoprazole Sodium (Protonix Inj) 40 mg IV.PUSH Q24H [facility] Last Admin: 04/19/18 09:09 Dose: 40 mg Pt Own Med: Pristiq (Desvenlafaxine) 100mg Po Daily 1 each PO DAILY [facility] Patient Own Medication: Creon 36 ,000/114,000,180,[address] 0 each PO TID [facility] Phenytoin Sodium (Dilantin) 100 mg PO TID [facility] Last Admin: 04/19/18 09:09 Dose: 100 mg Phenytoin Sodium (Dilantin) 30 mg PO TID [facility] Last Admin: 04/19/18 09:11 Dose: 30 mg Senna/Docusate Sodium (Olivia-Colace) 1 tab PO BID [facility] Last Admin: 04/19/18 09:10 Dose: 1 tab Sennosides (Senokot) 17.2 mg PO Q12H PRN PRN Reason: Moderate Constipation Allergies/Adverse Reactions: Allergies Allergy/AdvReac Type Severity Reaction Status Date / Time Sulfa (Sulfonamide Allergy Intermediate rash Verified 03/15/18 10:15 Antibiotics) Penicillins Allergy Unknown Weakness Verified 03/15/18 10:15 Review of Systems All other systems reviewed negative except as stated in HPI Physical Exam Vital signs: Vital Signs 04/18/18 12:00 04/18/18 16:00 04/18/18 17:30 Temperature 98.3 F 97.8 F Pulse Rate 65 70 Respiratory Rate 15 16 Blood Pressure 164/85 H 132/60 Pulse Oximetry 100 100 100 04/18/18 20:00 04/19/18 01:16 04/19/18 04:00 Temperature 97.1 F L 97.1 F L Pulse Rate 69 67 68 Respiratory Rate 18 18 Blood Pressure 152/73 H 173/80 H Pulse Oximetry 100 100 04/19/18 06:35 Temperature 98 F Pulse Rate 69 Respiratory Rate 18 Blood Pressure 158/74 H Pulse Oximetry 100 Intake & Output 04/18/18 04/19/18 04/19/18 18:59 06:59 18:59 Intake Total 1780 / 1780 1000 / 1000 Balance 1780 / 1780 1000 / 1000 Weight 65.1 kg Intake: IV 1300 / 1300 1000 / 1000 NS Inj 1,000 ML @ 100 mls/hr IV 1000 / 1000 1000 / 1000 .CONT .Q10H [facility] Rx#:[id number] Magnesium Sulfate 1 gm/D5W 100 100 / 100 ml Premix 100 ML @ 100 mls/hr IV.SIG ONCE ONE Rx#:[id number] KCl 10 mEq Premix Inj 10 meq In 200 / 200 100 ml @ 100 mls/hr IV.SIG Q1H [facility] Rx#:[id number] Oral 480 / 480 Other: # Voids 1 Date of Last Bowel Movement 04/17/18 04/17/18 # Bowel Movements 1 Narrative: GENERAL: Well-nourished, well-developed patient in no apparent distress. SKIN: Warm and dry. HEAD: Atraumatic. Normocephalic. EYES: Pupils equal and round. No scleral icterus. No injection or drainage. ENT: No nasal bleeding or discharge. NECK: Trachea midline. CARDIOVASCULAR: Regular rate and rhythm. RESPIRATORY: No accessory muscle use. GASTROINTESTINAL: Abdomen soft, non-tender, MUSCULOSKELETAL: Extremities without clubbing, cyanosis, or edema. No obvious deformities. NEUROLOGICAL: Awake alert oriented 2-3. New the month and the year not the exact date. He will tell them the current president and her PCP. Calm pleasant appropriate. Visual [place] full no facial asymmetry no drift no asterixis PSYCHIATRIC: Appropriate - Constitutional no acute distress - Routine HEENT Exam Head: Present: normocephalic Eye: Present: EOMI Objective Laboratory Results - last 24 hr 04/18/18 13:35 Sodium 138 Potassium 3.6 Chloride 106 Carbon Dioxide 22.9 Anion Gap 9 BUN 5 L Creatinine 0.82 Estimated GFR 69 L Random Glucose 106 Calcium 8.7 Review/Management - Diagnosis (1) Seizure Code(s): R56.9 - Unspecified convulsions Status: Acute Current Visit: Yes (2) ETOH abuse Code(s): F10.10 - Alcohol abuse, uncomplicated Status: Acute Current Visit: Yes (3) Acute pancreatitis Code(s): K85.90 - Acute pancreatitis without necrosis or infection, unspecified Status: Acute Current Visit: Yes (4) H/O: hysterectomy Code(s): Z90.710 - Acquired absence of both cervix and uterus Status: Acute Current Visit: No - Review/Management Plan: Probable alcohol withdrawal seizure Based on the symptomatology and resolution of symptoms not IV TPA candidate Lesser likely TIA EEG no active seizures MRI MRA brain stable carotid ultrasound no significant vaso-occlusive occlusive disease Recommendations Neuro stable PT Dilantin level pending for this morning DC planning Seizure fall precautions No driving swimming or operating heavy machinery for at least 6 months of being seizure free Discussed with patient and her caregiver at bedside and medical (3) Acute pancreatitis Qualifiers: Pancreatitis type: unspecified pancreatitis type Acute pancreatitis complication: unspecified Qualified Code(s): K85.90 - Acute pancreatitis without necrosis or infection, unspecified
[2018-04-19] MEDS: LORazepam 1 MG Tablet PO PRN ×3 (10:11→17:48)
[2018-04-19 12:39] LABS: Calcium 8.1 mg/dL (8.5-10.1); Carbon Dioxide 20.3 meq/L (21.0-32.0); Magnesium 1.8 mg/dL (1.5-2.5); Potassium 3.6 meq/L (3.5-5.1)
[2018-04-19 12:48] LABS: Phenytoin (Dilantin) 14.8 mcg/mL (10.0-20.0)
--- NOTE | 2018-04-19 13:12 | P.PN ---
Subjective Interval history: Awake, alert oriented 23. Pleasant, no tremors, no more seizures. Denies any abdominal pain, wants to eat some chocolate ice cream. No nausea, no vomiting. Has been calm overnight. Sitter at bedside Physical Exam Vital signs: Vital Signs 04/18/18 16:00 04/18/18 17:30 04/18/18 20:00 Temperature 97.8 F 97.1 F L Pulse Rate 70 69 Respiratory Rate 16 18 Blood Pressure 132/60 152/73 H Pulse Oximetry 100 100 100 04/19/18 01:16 04/19/18 04:00 04/19/18 06:35 Temperature 97.1 F L 98 F Pulse Rate 67 68 69 Respiratory Rate 18 18 Blood Pressure 173/80 H 158/74 H Pulse Oximetry 100 100 04/19/18 08:00 Temperature 97.8 F Pulse Rate 74 Respiratory Rate 18 Blood Pressure 166/76 H Pulse Oximetry 100 Intake & Output 04/18/18 04/19/18 04/19/18 18:59 06:59 18:59 Intake Total 1780 / 1780 1000 / 1000 Balance 1780 / 1780 1000 / 1000 Weight 65.1 kg Intake: IV 1300 / 1300 1000 / 1000 NS Inj 1,000 ML @ 100 mls/hr IV 1000 / 1000 1000 / 1000 .CONT .Q10H STACY Rx#:[id number] Magnesium Sulfate 1 gm/D5W 100 100 / 100 ml Premix 100 ML @ 100 mls/hr IV.SIG ONCE ONE Rx#:[id number] KCl 10 mEq Premix Inj 10 meq In 200 / 200 100 ml @ 100 mls/hr IV.SIG Q1H STACY Rx#:[id number] Oral 480 / 480 Other: # Voids 1 Date of Last Bowel Movement 04/17/18 04/17/18 04/17/18 # Bowel Movements 1 Narrative: GENERAL: Well-nourished, well-developed patient in no apparent distress. SKIN: Warm and dry. HEAD: Atraumatic. Normocephalic. EYES: Pupils equal and round. No scleral icterus. No injection or drainage. ENT: No nasal bleeding or discharge. Mucous membranes pink and moist. NECK: Trachea midline. No JVD. CARDIOVASCULAR: Regular rate and rhythm. RESPIRATORY: No accessory muscle use. Clear to auscultation. Breath sounds equal bilaterally. GASTROINTESTINAL: Abdomen soft, non-tender, nondistended. Hepatic and splenic margins not palpable. MUSCULOSKELETAL: Extremities without clubbing, cyanosis, or edema. No obvious deformities. NEUROLOGICAL: Awakes to voice, oriented 2. Not sure about date. Following commands appropriately, no focal deficits. No seizure activity noted. No obvious cranial nerve deficits. Motor grossly within normal limits. Five out of 5 muscle strength in the arms and legs. Normal speech. PSYCHIATRIC: Appropriate Results - Labs CBC & Chem 7: 04/17/18 07:22 04/19/18 10:49 Laboratory Results - last 24 hr 04/18/18 04/19/18 13:35 10:49 Sodium 138 138 Potassium 3.6 3.6 Chloride 106 106 Carbon Dioxide 22.9 20.3 L Anion Gap 9 12 BUN 5 L 9 Creatinine 0.82 0.85 Estimated GFR 69 L 66 L Random Glucose 106 91 Calcium 8.7 8.1 L Magnesium 1.8 Lipase 453 H Phenytoin 14.8 - Procedures None Assessment and Plan - Assessment (1) Acute pancreatitis Code(s): K85.90 - Acute pancreatitis without necrosis or infection, unspecified Status: Acute (2) Seizure Code(s): R56.9 - Unspecified convulsions Status: Acute (3) Hypokalemia Code(s): E87.6 - Hypokalemia Status: Acute (4) ETOH abuse Code(s): F10.10 - Alcohol abuse, uncomplicated Status: Acute (5) Hypertension Code(s): I10 - Essential (primary) hypertension Status: Chronic (6) Depression Code(s): F32.9 - Major depressive disorder, single episode, unspecified Status : Chronic - Plan -Assessment/Plan Patient is a 72-year-old female with a past medical history of hypertension, depression, EtOH abuse and pancreatitis. She has been seen for pancreatitis multiple times, most recently November 2017. She initially presented 04/14/18 to the emergency room via EMS for suprapubic abdominal discomfort. She did complain of some dysuria. Also had a complaint of nausea. CT of the abdomen and pelvis noted that previous acute pancreatitis has improved. Stroke alert 04/17/ likely alcohol- withdrawal seizure had 2 tonic-clonic seizure 04/17 Continues to improve, oriented 23. No seizures, calm. -Neurology input appreciated -Imaging studies reviewed, no acute findings. No evidence of stroke. -EEG normal -Seizure precautions -Continue Dilantin, level 14.8. On p.o. Dilantin now. -PT/ST -Aspiration precautions -Continue CITN protocol Recurrent acute on chronic pancreatitis -CT abdomen noted . -Continue with conservative treatments, IV fluid hydration -Continue with pancreatic enzymes -Alcohol cessation strongly advised -Pain management accordingly -Monitor lipase level, trending down, 453 today. -Adv diet as tolerated EtOH abuse -Counseled cessation -CIWA protocol ,rally pack Hypertension -Continue home medication Hypothyroid -Continue home medication Hypokalemia -Potassium better, 3.6 a day. Labs in am DVT prevention-heparin PPI for GI prophylaxis Case management consult for home health care Plan to discharge tomorrow d/w RN, caregiver, pt. (1) Acute pancreatitis Qualifiers: Pancreatitis type: unspecified pancreatitis type Acute pancreatitis complication: unspecified Qualified Code(s): K85.90 - Acute pancreatitis without necrosis or infection, unspecified (5) Hypertension Qualifiers: Hypertension type: essential hypertension Qualified Code(s): I10 - Essential (primary) hypertension (6) Depression Qualifiers: Depression Type: unspecified Qualified Code(s): F32.9 - Major depressive disorder, single episode, unspecified
--- NOTE | 2018-04-19 13:14 | P.DCO ---
- Diagnosis (1) Acute pancreatitis - Physical Therapy Order: Evaluate and treat - Home Health Nursing Order: Medical education, Nursing assessment with vital signs - Case Management Consult Yes - Certification I have seen patient Sita Harvey on 04/19/18. My clinical findings support the need for the requested home health care services because: EtOH abuse, acute pancreatitis, seizures, prior history of fall with fracture Deconditioned with increased weakness, Limited ability to care for self, Need for psychosocial assistance, Impaired cognition/judgement, High risk of falls I certify that my clinical findings support that this patient is homebound because: Unsteady gait/balance, Need for psychosocial assistance (1) Acute pancreatitis Qualifiers: Pancreatitis type: unspecified pancreatitis type Acute pancreatitis complication: unspecified Qualified Code(s): K85.90 - Acute pancreatitis without necrosis or infection, unspecified
[2018-04-19] MEDS: Morphine Inj 4 MG/ML Vial IV.PUSH PRN (20:57)
[2018-04-20] MEDS: chlordiazePOXIDE 25 MG Capsule PO SCH ×3 (03:15→12:41)
[2018-04-20] MEDS: Heparin - SQ 10,000 UNITS/ML Vial SQ SCH (06:08)
[2018-04-20] MEDS: Levothyroxine 75 MCG Tablet PO SCH (06:09)
[2018-04-20] MEDS: Sod Chloride 0.9% Inj 1,000 ML IV.CONT SCH ×2 (06:14→07:29)
[2018-04-20] MEDS: Phenytoin Sodium 100 MG Capsule PO SCH ×2 (08:14→12:41)
[2018-04-20] MEDS: Senna/Docusate Sodium 8.6/50 MG Tablet PO SCH (08:15)
[2018-04-20 09:01] LABS: Anion Gap 11 meq/L (5-15); Blood Urea Nitrogen 7 mg/dL (7-18); Calcium 8.3 mg/dL (8.5-10.1); Carbon Dioxide 20.3 meq/L (21.0-32.0); Chloride 112 meq/L (98-107); Glomerular Filtration Rate Greater Than 89 mL/min (>89); Glucose,Random 86 mg/dL (74-106); Potassium 3.5 meq/L (3.5-5.1); Sodium 143 meq/L (136-145)
[2018-04-20 09:09] LABS: Phenytoin (Dilantin) 12.7 mcg/mL (10.0-20.0)
--- NOTE | 2018-04-20 09:34 | P.PN ---
Subjective Interval history: awake, oriented x 2, forgetful, asking when she is going home. No seizures, only 1 dose of Ativan last night, eating well, no n/v. C/O tongue sore, bit down on left side during seizure. Caregiver at [facility], states pt. walks with walker to liquor store across the street. Caregiver has resorted to adding water to her drinks to dilute them Physical Exam Vital signs: Vital Signs 04/19/18 12:00 04/19/18 16:00 04/19/18 20:00 Temperature 97.9 F 98.1 F 98.1 F Pulse Rate 77 74 70 Respiratory Rate 18 18 17 Blood Pressure 169/78 H 138/79 131/60 Pulse Oximetry 100 100 98 04/20/18 00:00 04/20/18 04:00 Temperature 98 F 97.8 F Pulse Rate 67 62 Respiratory Rate 18 17 Blood Pressure 145/70 H 115/65 Pulse Oximetry 97 96 Intake & Output 04/19/18 04/20/18 04/20/18 18:59 06:59 18:59 Intake Total 720 / 720 2240 / 2240 Output Total 850 / 850 Balance 720 / 720 1390 / 1390 Weight 65.8 kg Intake: IV 1999 NS Inj 1,000 ML @ 100 mls/hr IV 1999 .CONT .Q10H STACY Rx#:[id number] Oral 720 / 720 240 / 240 Output: Urine 850 / 850 Other: # Voids 4 # Incontinent Voids 1 Date of Last Bowel Movement 04/17/18 04/17/18 Narrative: GENERAL: Well-nourished, well-developed patient in no apparent distress. SKIN: Warm and dry. HEAD: Atraumatic. Normocephalic. EYES: Pupils equal and round. No scleral icterus. No injection or drainage. ENT: No nasal bleeding or discharge. Mucous membranes pink and moist. Left tongue noted with laceration/sore from bite NECK: Trachea midline. No JVD. CARDIOVASCULAR: Regular rate and rhythm. RESPIRATORY: No accessory muscle use. Clear to auscultation. Breath sounds equal bilaterally. GASTROINTESTINAL: Abdomen soft, non-tender, nondistended. Hepatic and splenic margins not palpable. MUSCULOSKELETAL: Extremities without clubbing, cyanosis, or edema. No obvious deformities. NEUROLOGICAL: Awakes to voice, oriented 2. Not sure about date. Following commands appropriately, no focal deficits. No seizure activity noted. No obvious cranial nerve deficits. Motor grossly within normal limits. Five out of 5 muscle strength in the arms and legs. Normal speech. PSYCHIATRIC: Appropriate Results - Labs CBC & Chem 7: 04/17/18 07:22 04/20/18 07:53 Laboratory Results - last 24 hr 04/19/18 04/20/18 04/20/18 10:49 07:53 07:53 Sodium 138 143 Potassium 3.6 3.5 Chloride 106 112 H Carbon Dioxide 20.3 L 20.3 L Anion Gap 12 11 BUN 9 7 Creatinine 0.85 0.64 Estimated GFR 66 L Greater than 89 Random Glucose 91 86 Calcium 8.1 L 8.3 L Magnesium 1.8 Lipase 453 H 294 Phenytoin 14.8 12.7 - Procedures None Assessment and Plan - Assessment (1) Acute pancreatitis Code(s): K85.90 - Acute pancreatitis without necrosis or infection, unspecified Status: Acute (2) ETOH abuse Code(s): F10.10 - Alcohol abuse, uncomplicated Status: Acute (3) Hypokalemia Code(s): E87.6 - Hypokalemia Status: Acute (4) Seizure Code(s): R56.9 - Unspecified convulsions Status: Acute (5) Hypertension Code(s): I10 - Essential (primary) hypertension Status: Chronic (6) Depression Code(s): F32.9 - Major depressive disorder, single episode, unspecified Status : Chronic - Plan -Assessment/Plan Patient is a 72-year-old female with a past medical history of hypertension, depression, EtOH abuse and pancreatitis. She has been seen for pancreatitis multiple times, most recently November 2017. She initially presented 04/14/18 to the emergency room via EMS for suprapubic abdominal discomfort. She did complain of some dysuria. Also had a complaint of nausea. CT of the abdomen and pelvis noted that previous acute pancreatitis has improved. Stroke alert 04/17/ likely alcohol- withdrawal seizure had 2 tonic-clonic seizure 04/17 Continues to improve, oriented 23. No seizures, calm. -Neurology input appreciated -Imaging studies reviewed, no acute findings. No evidence of stroke. -EEG normal -Seizure precautions -Continue Dilantin, level 14.8. On p.o. Dilantin now. -PT/ST -Aspiration precautions -Continue CIWA protocol -improved, no seizures, pt. not likely to stop drinking. Has access to ETOH regardless of caregiver presence. Apparently daughter doesn't want them to stop her from going to liquor store. Recurrent acute on chronic pancreatitis -CT abdomen noted . -Continue with conservative treatments, IV fluid hydration -Continue with pancreatic enzymes -Alcohol cessation strongly advised -Pain management accordingly -Monitor lipase level, trending down,294 today -Adv diet as tolerated EtOH abuse -Counseled cessation -CIWA protocol ,rally pack Hypertension -Continue home medication Hypothyroid -Continue home medication Hypokalemia -Potassium better, 3.5. Replace today. Mg okay DVT prevention-heparin PPI for GI prophylaxis Patient stable for discharge. Case management consult for home health care Plan to discharge today D/W caregiver, she will try to discard liquor however they are limited in their role. D/W CM, RN Needs f/u with Dr. Branch in one week Diet-heart healthy, needs abstain or at least cut down. D/W pt. Continue Xanax PRN at home, has rx that was filled 03/16. Activity-as tolerated, no driving/swimming x 6 months. No longer drives. (1) Acute pancreatitis Qualifiers: Pancreatitis type: unspecified pancreatitis type Acute pancreatitis complication: unspecified Qualified Code(s): K85.90 - Acute pancreatitis without necrosis or infection, unspecified (5) Hypertension Qualifiers: Hypertension type: essential hypertension Qualified Code(s): I10 - Essential (primary) hypertension (6) Depression Qualifiers: Depression Type: unspecified Qualified Code(s): F32.9 - Major depressive disorder, single episode, unspecified
[2018-04-20] MEDS ORDERED: Potassium Chloride 25 MEQ Effervescent Tablet PO ONE (10:00)
[2018-04-20] MEDS: Pantoprazole Inj 40 MG Vial IV.PUSH SCH (10:16)
[2018-04-20] MEDS ORDERED: Nystatin/Diphenhydramine/Lidocaine Mouthwash (Adult) 120 ML Botttle SWISH-SWAL SCH (13:00)
[2018-04-20 13:41] VITALS: BP 151/70; RESP 18; TEMP 97.6; O2SAT 98
[2018-04-20 14:57] VITALS: PULSE 63
--- NOTE | 2018-04-20 17:54 | P.DS ---
Date of admission: 04/15/18 06:17 Primary care physician: Maxi Branch MD Attending physician on discharge: Brannon Pace Anticipated date of discharge: 04/20/18 Brief History from admission: Patient is a 72-year-old female with a past medical history of hypertension, depression, EtOH abuse and pancreatitis. She has been seen for pancreatitis multiple times, most recently November 2017. She initially presented 04/14/18 to the emergency room via EMS for suprapubic abdominal discomfort. She did complain of some dysuria. Also had a complaint of nausea. CT of the abdomen and pelvis noted that previous acute pancreatitis has improved. There is still some prominence of the pancreatic head with no biliary obstruction. Gallstones without obstruction were noted. Scattered diverticulosis with no inflammatory change was also seen. Laboratory significant for sodium of 132, mildly elevated creatinine of 1.09 and GFR of 50. Lactic acid 2.1. Lipase 538. Afebrile. Blood pressure elevated. Patient is seen in room today. She is obviously very depressed and tells me that she is still grieving the of her for over a year ago. Endorses continued drinking; unlikely to stop. She tells me she has been taking her medications consistently. Does still complain of some dysuria however is vague in her symptom descriptions. She is experiencing nausea and vomiting. Did not tolerate a cracker earlier but is hoping she can keep down some soup. No chest pain or shortness of breath. No dizziness or headache. DS: Diagnosis - Discharge Diagnosis (1) Acute pancreatitis Status: Acute (2) ETOH abuse Status: Acute (3) Hypokalemia Status: Acute (4) Seizure Status: Acute (5) Hypertension Status: Chronic (6) Depression Status: Chronic DS: Medications - Discharge Medications Prescriptions: phenytoin sodium extended 100 mg PO TID 30 Days #90 cap phenytoin sodium extended [Dilantin] 30 mg PO TID 30 Days #90 cap DS: Summary Hospital Course: Patient is a 72-year-old female with a past medical history of hypertension, depression, EtOH abuse and pancreatitis. She has been seen for pancreatitis multiple times, most recently November 2017. She initially presented 04/14/18 to the emergency room via EMS for suprapubic abdominal discomfort. She did complain of some dysuria. Also had a complaint of nausea. CT of the abdomen and pelvis noted that previous acute pancreatitis has improved. Patient was admitted with alcohol withdrawal seizures, on April 17 stroke alert was called as patient was noted having a tonic-clonic seizure and facial droop. Neurology was consulted, she was put on seizure precautions. She was loaded with Dilantin. EEG was done which was normal. She was put on CIWA protocol. She had another seizure after that event and Dilantin was increased. Imaging studies were done, negative for stroke. Patient was confused and agitated and required restraints. Over the course of the hospitalization, patient did improve, she was less confused. Restraints were removed. Patient was also noted with acute on chronic pancreatitis secondary to alcohol abuse, lipase was followed. She was put on IV fluids. Pain management was done accordingly. Her diet was advanced slowly. Her home medications were initiated as indicated. Physical therapy was ordered. Over the course of hospitalization, patient improved. She was less forgetful, no more agitation. Case management was consulted to arrange home health care. She was counseled extensively about her alcohol use. Patient lives at home and has around-the- clock caregivers. Caregivers were educated and instructed to monitor patient's alcohol intake. Her electrolytes were replaced, she was noted hypokalemic. She also bitten on her tongue, Magic mouthwash was ordered. Patient stabilized and was discharged in stable condition. She was cleared by neurology, was recommended to continue on Neurontin and to follow-up as outpatient with him. She was counseled not to drive swim for at least 6 months. - Time Spent with Patient Total time spent providing and/or coordinating discharge services: Greater than 30 minutes - Quality: Stroke Last date observed well: 04/17/18 Last time observed well: 07:00 Exam Vital signs: Vital Signs 04/19/18 20:00 04/20/18 00:00 04/20/18 04:00 Temperature 98.1 F 98 F 97.8 F Pulse Rate 70 67 62 Respiratory Rate 17 18 17 Blood Pressure 131/60 145/70 H 115/65 Pulse Oximetry 98 97 96 04/20/18 08:00 04/20/18 12:00 Temperature 97.7 F 97.6 F Pulse Rate 62 63 Respiratory Rate 16 18 Blood Pressure 163/83 H 151/70 H Pulse Oximetry 97 98 Intake & Output 08/23/18 08/24/18 08/24/18 18:59 06:59 18:59 Intake Total 720 / 720 2240 / 2240 Output Total 850 / 850 Balance 720 / 720 1390 / 1390 Weight 65.8 kg Intake: IV 1999 NS Inj 1,000 ML @ 100 mls/hr IV 1999 .CONT .Q10H STACY Rx#:[id number] Oral 720 / 720 240 / 240 Output: Urine 850 / 850 Other: # Voids 4 # Incontinent Voids 1 Date of Last Bowel Movement 04/17/18 04/17/18 04/17/18 Results Procedures completed during hospitalization: None Labs on day of discharge: Labs from last 24 hours 04/20/18 04/20/18 07:53 07:53 Sodium 143 Potassium 3.5 Chloride 112 H Carbon Dioxide 20.3 L Anion Gap 11 BUN 7 Creatinine 0.64 Estimated GFR Greater than 89 Random Glucose 86 Calcium 8.3 L Lipase 294 Phenytoin 12.7 - Impressions ITS Impressions Abdomen/Pelvis CT 04/15/18 02:53 CONCLUSION: 1. Prominence of the pancreatic head and adjacent duodenum. This could be secondary to inflammatory change including focal pancreatitis or duodenitis and peptic ulcer disease. On the prior exam this area also appear prominent. There is more inflammatory change seen surrounding this region on the prior exam. An underlying mass involving the pancreatic head and duodenum cannot be excluded. One could consider direct inspection of the duodenum. There are calcifications in the pancreas consistent with chronic pancreatitis. 2. Small calcified gallstones. 3. Hepatic cysts and calcified granulomas. 4. Splenic ossified granulomas. 5. Chronic bony changes as described above. Head CT 04/17/18 07:21 CONCLUSION: 1. Stable noncontrast head CT. No acute intracranial abnormality is identified. 2. Stable chronic findings include generalized atrophy and mild chronic periventricular white matter change. These findings were telephoned to Dr. Payne on 04/17/2018 at 7:45 AM. Head MRA 04/17/18 09:10 CONCLUSION: 1. Negative MRA [place] ([place]) non contrast. Carotid Doppler Study 04/17/18 09:11 CONCLUSION: No evidence for hemodynamically significant stenosis. Head MRI 04/17/18 09:11 CONCLUSION: Chronic small vessel ischemic and atrophic changes. Discharge Plan - Discharge Disposition Patient Disposition: /Home Health Service - Discharge Condition Condition: Stable - Discharge Order Discharge Orders: Discharge Order (Routine); Ordered 04/20/18 Ordered By: Tita Ramsey - Discharge Details Anticipated Discharge Date: 04/20/18 - Physicians Team Primary Care Provider: Maxi Branch Attending Provider: Brannon Pace Other Providers: Brandon Payne MD
== END 2018-04-20 14:59 | disposition home health service (06) ==
LOC: NEPE 01:38 → NEDA 01:38 → N04 10:08
PROVIDERS: ADMIT Internal Medicine; ATTEND Internal Medicine

== ENCOUNTER 2018-07-22 01:12 | Inpatient (IN) ==
[2018-07-22] MEDS ORDERED: Morphine Inj 4 MG/ML Vial IV.PUSH ONE (01:37)
[2018-07-22 01:46] LABS: Baso # (Auto) 0.1 th/mm3 (0.0-0.2); Baso % (Auto) 0.5 % (0.0-2.0); Eos % (Auto) 0.3 % (0.0-4.0); Hematocrit 37.9 % (35.0-46.0); Hemoglobin 12.9 gm/dL (11.6-15.3); Lymph # (Auto) 1.6 th/mm3 (1.0-4.8); Lymph % (Auto) 14.7 % (9.0-44.0); Mean Corpuscular HGB Conc 34.1 % (32.0-36.0); Mean Corpuscular Hemoglobin 33.7 pg (27.0-34.0); Mean Corpuscular Volume 98.7 fL (80.0-100.0); Mono # (Auto) 1.5 th/mm3 (0.0-0.9); Mono % (Auto) 14.1 % (0.0-8.0); Neut # (Auto) 7.8 th/mm3 (1.8-7.7); Neut % (Auto) 70.4 % (16.0-70.0); Platelet Count 307 th/mm3 (150-450); Red Blood Count 3.84 mil/mm3 (4.00-5.30); Red Cell Distribution Width 18.9 % (11.6-17.2)
--- NOTE | 2018-07-22 01:47 | ED ---
HPI General Chief complaint: Abdominal Pain Stated complaint: EVAC/Abdominal pain Time Seen by Provider: 07/22/18 01:35 Source: patient Mode of arrival: ambulatory Limitations: no limitations History of Present Illness HPI narrative: 73yo F with PMH of alcohol abuse, pancreatitis here with c/o epigastric abdominal pain for a few days. Associated with nausea. Said she felt a little sob on the ambulance but not anymore. Denies any fever, chest pain, focal weakness or numbness. Related Data Home Medications Medication Instructions Recorded Confirmed levothyroxine [Synthroid] 75 mcg PO DAILY 03/15/18 07/22/18 desvenlafaxine succinate 100 mg PO DAILY 04/15/18 07/22/18 [id number] [Creon] 2 cap PO TID 04/15/18 07/22/18 losartan 100 mg PO DAILY 04/15/18 07/22/18 promethazine 25 mg PO Q6H PRN 04/15/18 07/22/18 Allergies Allergy/AdvReac Type Severity Reaction Status Date / Time Sulfa (Sulfonamide Allergy Intermediate rash Verified 07/22/18 01:39 Antibiotics) Penicillins Allergy Unknown Weakness Verified 07/22/18 01:39 Review of Systems ROS: all other systems reviewed are negative [facility] Social History Social History Substance History: Active Abuse Second Hand Smoke Exposure: No Smoking Status: Former smoker Tobacco Type: Cigarettes How Often Do You Have a Drink Containing Alcohol: 4 or more times a week Recent Travel in [facility] within the Last 8 Weeks: No Recent Out of Country Travel within the Last 8 Weeks: No Substance Abuse Detail Alcohol: Substance Use Status: Active Immunization History Tetanus Immunization: Unsure Exam Narrative Exam Narrative: GENERAL: 73yo F in mild distress. SKIN: Focused skin assessment warm/dry. HEAD: Atraumatic. Normocephalic. EYES: Pupils equal and round. No scleral icterus. No injection or drainage. ENT: No nasal bleeding or discharge. Mucous membranes pink and moist. NECK: Trachea midline. No JVD. CARDIOVASCULAR: Regular rate and rhythm. No murmur appreciated. RESPIRATORY: No accessory muscle use. Clear to auscultation. Breath sounds equal bilaterally. GASTROINTESTINAL: Abdomen soft, +TTP epigastric region. No rebound tenderness or guarding. MUSCULOSKELETAL: No obvious deformities. No clubbing. No cyanosis. No edema. NEUROLOGICAL: Awake and alert. No obvious cranial nerve deficits. Motor grossly within normal limits. Normal speech. PSYCHIATRIC: Appropriate mood and affect; insight and judgment normal. Course Initial Documented Vital Signs Temperature 97.9 F 07/22/18 01:20 Pulse Rate 93 H 07/22/18 01:20 Respiratory Rate 16 07/22/18 01:20 Blood Pressure 123/72 07/22/18 01:20 Pulse Oximetry 98 07/22/18 01:20 Last Documented Vital Signs Temperature 98.5 F 07/22/18 04:00 Pulse Rate 91 H 07/22/18 04:00 Respiratory Rate 20 07/22/18 04:00 Blood Pressure 137/62 07/22/18 04:00 Pulse Oximetry 96 07/22/18 04:00 Medical Decision Making MDM Narrative Medical decision making narrative: 73yo F with alcohol abuse here with epigastric pain and nausea for a few hours. Labs reviewed, no leukocytosis. H/ H normal. Lipase is elevated at 3526. Hypokalemia at 2.8, replaced orally. Hyponatremia at 129. Hypomagnesemia at 1.4, replaced with mag sulfate. Troponin negative. CXR negative. Discussed with Dr. Vega and accepted to her service. CT a/p showed chronic pancreatitis with pancreatitis ductal dilatation and some prominence of pancreatic head. Medical Screen Exam Complete: Yes Emergency Medical Condition: Yes Differential Diagnosis Differential Diagnosis: Acute pancreatitis vs. gastritis vs. peptic ulcer disease vs. ACS Lab Data Result diagrams: 07/22/18 01:40 07/22/18 01:40 Lab Results 07/22/18 07/22/18 Range/Units 01:40 01:40 CBC w Diff Auto diff final WBC 11.0 (4.0-11.0) th/mm3 RBC 3.84 L (4.00-5.30) mil/mm3 Hgb 12.9 (11.6-15.3) gm/dL Hct 37.9 (35.0-46.0) % MCV 98.7 (80.0-100.0) fL MCH 33.7 (27.0-34.0) pg MCHC 34.1 (32.0-36.0) % RDW 18.9 H (11.6-17.2) % Plt Count 307 (150-450) th/mm3 MPV 7.0 (7.0-11.0) fL Neut % (Auto) 70.4 H (16.0-70.0) % Lymph % (Auto) 14.7 (9.0-44.0) % [place] % (Auto) 14.1 H (0.0-8.0) % Eos % (Auto) 0.3 (0.0-4.0) % Baso % (Auto) 0.5 (0.0-2.0) % Neut # (Auto) 7.8 H (1.8-7.7) th/mm3 Lymph # (Auto) 1.6 (1.0-4.8) th/mm3 [place] # (Auto) 1.5 H (0.0-0.9) th/mm3 Eos # (Auto) 0.0 (0.0-0.4) th/mm3 Baso # (Auto) 0.1 (0.0-0.2) th/mm3 WBC Differential . Differential Comment . Sodium 129 L (136-145) meq/L Potassium 2.8 L* (3.5-5.1) meq/L Chloride 93 L (98-107) meq/L Carbon Dioxide 22.1 (21.0-32.0) meq/L Anion Gap 14 (5-15) meq/L BUN 12 (7-18) mg/dL Creatinine 1.10 H (0.50-1.00) mg/dL Estimated GFR 49 L (>89) mL/min Random Glucose 106 (74-106) mg/dL Calcium 7.8 L (8.5-10.1) mg/dL Magnesium 1.4 L (1.5-2.5) mg/dL Total Bilirubin 0.9 (0.2-1.0) mg/dL AST 70 H (15-37) U/L ALT 30 (10-53) U/L Alkaline Phosphatase 150 H (45-117) U/L Troponin I 0.02 (0.02-0.05) ng/mL Total Protein 6.5 (6.4-8.2) g/dL Albumin 2.9 L (3.4-5.0) g/dL Lipase 3526 H (73-393) U/L Serum Alcohol Less than 3 (0-5) mg/dL Imaging Data Radiologist's impression: Abdomen/Pelvis CT 07/22/18 01:36 CONCLUSION: 1. Relatively stable findings of chronic pancreatitis with pancreatic ductal dilatation and some prominence of the pancreatic head. 2. Small calcified gallstones in the gallbladder. 3. Multiple small hepatic and renal cysts. 4. Stable mild compression deformity at T12. Chest X-Ray 07/22/18 01:36 CONCLUSION: No active disease. Mild scoliosis. ECG Data EKG Prior to Arrival: No Attestation: I personally reviewed and interpreted this ECG as follows: Interpretation: NSR 93bpm. Normal axis. VA interval 145ms. Mild ST depressions. Discharge Plan Discharge Disposition Patient Disposition: 30 Still Patient Discharge Details Diagnosis: Acute pancreatitis Physicians Team ED Provider: [place] Primary Care Provider: Maxi Branch Attending Provider: Edgard Price Discharge Interventions Interventions: ED Discharge Assessment Last Done: 07/22/18 04:22 Status ED Status: Left Department Discharge Information Discharge Date/Time: 07/22/18 04:23
[2018-07-22 02:05] LABS: Alanine Aminotransferase 30 U/L (10-53); Albumin 2.9 g/dL (3.4-5.0); Alkaline Phosphatase 150 U/L (45-117); Anion Gap 14 meq/L (5-15); Aspartate Aminotransferase 70 U/L (15-37); Blood Urea Nitrogen 12 mg/dL (7-18); Calcium 7.8 mg/dL (8.5-10.1); Carbon Dioxide 22.1 meq/L (21.0-32.0); Chloride 93 meq/L (98-107); Glomerular Filtration Rate 49 mL/min (>89); Lipase 3526 U/L (73-393); Magnesium 1.4 mg/dL (1.5-2.5); Sodium 129 meq/L (136-145); Total Protein 6.5 g/dL (6.4-8.2)
[2018-07-22 02:06] LABS: Glucose,Random 106 mg/dL (74-106)
[2018-07-22 02:07] LABS: Potassium 2.8 meq/L (3.5-5.1)
[2018-07-22 02:11] LABS: Troponin I 0.02 ng/mL (0.02-0.05)
[2018-07-22] MEDS ORDERED: Mag Sulf 1 gm/100 ml Premix 100 ML IV.SIG ONE (02:42)
--- NOTE | 2018-07-22 02:43 | XR ---
EXAM DATE: 07/22/2018 2:01 AM EST AGE/SEX: 73 years / Female INDICATIONS: Dyspnea. Left sided chest pain for 2 days. CLINICAL DATA: This is the patient's initial encounter. Patient reports that signs and symptoms have been present for 2 days and indicates a pain score of 7/10. MEDICAL/SURGICAL HISTORY: . Cerebrovascular disease. Cardiovascular disease. Pancreatitis. Seiz ure. Ulcer. Breast cancer. . Appendectomy. Cholecystectomy. Hysterectomy. COMPARISON: No prior exams available for comparison. FINDINGS: A single AP view of the chest demonstrates the lungs to be symmetrically aerated without evidence of mass, infiltrate or effusion. Tortuous aorta. Remote left rib fractures. CONCLUSION: No active disease. Mild scoliosis. Electronically signed by: Monico Yanez MD 07/22/2018 2:42 AM EST
[2018-07-22] MEDS ORDERED: Bisacodyl 10 MG Supp RECTAL PRN (02:44)
[2018-07-22] MEDS ORDERED: Acetaminophen 325 MG Tablet PO PRN (02:44)
[2018-07-22] MEDS ORDERED: Sod Chloride 0.9% Inj 1,000 ML IV.CONT SCH (02:45)
[2018-07-22] MEDS ORDERED: LORazepam 1 MG Tablet PO PRN (02:45)
[2018-07-22] MEDS ORDERED: Haloperidol Inj 5 MG/ML Ampul IV.PUSH PRN (02:45)
--- NOTE | 2018-07-22 03:00 | CT ---
EXAM DATE: 07/22/2018 2:41 AM EST AGE/SEX: 73 years / Female INDICATIONS: Diffuse abdominal pain. CLINICAL DATA: This is the patient's initial encounter. Patient reports that signs and symptoms have been present for 1 day and indicates a pain score of 8/10. MEDICAL/SURGICAL HISTORY: Carcinoma, breast. Hypertension. Pancreatitis. Appendicitis. Hem orrhoidectomy. ORAL CONTRAST: No oral contrast ingested. RADIATION DOSE: 5.46 CTDI (mGy) COMPARISON: [facility] – [place], CT ABDOMEN & PELVIS W CONTRAST, 04/15/2018. . TECHNIQUE: Multiple contiguous axial images were obtained through the abdomen and pelvis following b olus infusion of 80 ml Omnipaque 350 (iohexol) nonionic water-soluble contrast as a single exam dos e. No oral contrast ingested. Using automated exposure control and adjustment of the mA and/or kV ac cording to patient size, radiation dose was kept as low as reasonably achievable to obtain optimal di agnostic quality images. DICOM format image data is available electronically for review and comparis on. FINDINGS: Lung bases are clear. No pleural or pericardial effusion. Small hiatal hernia. Multiple hepatic cysts present. Fatty liver. Calcified granulomata in the spleen. Again seen are coarse calcifications in the pancreas characteristic of chronic pancreatitis with some stable mild prominence of the pancreatic head. Pancreatic duct remains dilated to just over 5 mm. Nu merous small bilateral renal cysts. No hydronephrosis. Small hiatal hernia. No pelvic masses. Previous bilateral hip fixation. CONCLUSION: 1. Relatively stable findings of chronic pancreatitis with pancreatic ductal dilatation and some pro minence of the pancreatic head. 2. Small calcified gallstones in the gallbladder. 3. Multiple small hepatic and renal cysts. 4. Stable mild compression deformity at T12. Electronically signed by: Monico Yanez MD 07/22/2018 2:59 AM EST
[2018-07-22] MEDS ORDERED: Influenza (Quadrivalent) Vaccine 0.5 ML Syringe IM ONE (06:00)
[2018-07-22] MEDS: Morphine Sulfate Inj 2 MG/ML Vial IV.PUSH PRN ×3 (06:05→20:38)
[2018-07-22] MEDS: Pantoprazole Inj 40 MG Vial IV.PUSH SCH ×2 (08:11→20:38)
[2018-07-22] MEDS: Multivitamin/Minerals Therapeutic Tablet PO SCH (08:11)
[2018-07-22] MEDS: Folic Acid 1 MG Tablet PO SCH (08:11)
[2018-07-22] MEDS: Senna/Docusate Sodium 8.6/50 MG Tablet PO SCH ×2 (08:12→20:39)
[2018-07-22 08:18] LABS: Calcium 7.6 mg/dL (8.5-10.1); Carbon Dioxide 25.6 meq/L (21.0-32.0); Magnesium 1.9 mg/dL (1.5-2.5)
--- NOTE | 2018-07-22 08:44 | P.HP ---
History of Present Illness Primary Care Physician: Maxi Branch MD Chief Complaint: Abdominal pain, nausea History of Present Illness: 73-year-old female with known history of hypertension, hypothyroidism, chronic alcohol abuse, chronic pancreatitis who presented to the hospital for evaluation of abdominal pain, nausea for 3 days. Patient states that she has had severe nausea with epigastric abdominal pain for 3 days that has not gotten any better so she came to the hospital for evaluation. Patient had workup done in emergency department and found to have an elevated lipase level with CT finding of acute on chronic pancreatitis, significant hypokalemia. It was recommended by the ER physician the patient be admitted for further evaluation and management. 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 She continues to drink alcohol on a daily basis. Upon evaluating patient this morning she still experiencing epigastric abdominal pain. Still feeling nauseated. Does not have an appetite. - Diagnosis (1) Acute pancreatitis (2) Hypokalemia Inpatient Certification: I certify that the inpatient services were ordered in accordance with Medicare regulations governing the order. This includes certification that hospital inpatient services are reasonable and necessary and in the case of services not specified as inpatient-only under 42 CFR 419.22(n), that they are appropriately provided as inpatient services in accordance to with the 2-midnight benchmark under 43 CFR 412.3(e) Estimated Total Length of Stay (Days): 2 Plans for Post Hospital Care: Not yet determined Review of Systems All other systems reviewed negative except as stated in HPI Gastrointestinal: Reports abdominal pain, Reports nausea PMFSH - History History Provided By: Patient - Medical History Medical History: Medical History (Last Reviewed 07/22/18 @ 01:25 by Sofia Das RN) H/O: hysterectomy (Acute) Abuse, drug or alcohol Appendicitis Depression History of cancer of left breast Hypertension Hypothyroid Pancreatitis - Surgical History Surgical History: Surgical History (Last Updated 07/22/18 @ 08:34 by VIOLA Nolan) H/O: hysterectomy (Acute) - Family History Family History: Family History (Last Updated 07/22/18 @ 08:39 by VIOLA Nolan) Mother Family history of hypertension Father History of prostate cancer - Tobacco History Second Hand Smoke Exposure: No Tobacco Use In Past 30 Days: No Smoking Status: Former smoker Tobacco Type: Cigarettes - Alcohol History How Often Do You Have a Drink Containing Alcohol: 4 or more times a week - Substance Use History Substance History: Active Abuse - Substance Use Type Alcohol Status: Active Route Used: By Mouth Reason for Use: Socialization - Travel History Recent Travel in the [place] Within the Last 8 Weeks: No Recent Travel Out of the Country Within the Last 8 Weeks: No - Immunization History Tetanus Immunization: Unsure Hx Influenza Vaccine This Season: No Medications and Allergies Active Medications: Active Medications Acetaminophen (Tylenol) 650 mg PO Q4H PRN PRN Reason: Temp > 100.4 Al Hydroxide/Mg Hydroxide (Milk Of Magnesia Liq) 30 ml PO Q12H PRN PRN Reason: Mild Constipation Bisacodyl (Dulcolax Supp) 10 mg RECTAL DAILY PRN PRN Reason: SEVERE CONSITIPATION Flumazenil (Romazecon Inj) 0.2 mg IV.PUSH Q1M PRN PRN Reason: OVERSEDATION Folic Acid (Folic Acid) 1 mg PO DAILY STACY Stop: 07/27/18 08:59 Last Admin: 07/22/18 08:11 Dose: 1 mg Haloperidol Lactate (Haldol Inj) 1 mg IV.PUSH Q15M PRN PRN Reason: for severe agitation Sodium Chloride (Ns Inj) 1,000 mls @ 100 mls/hr IV.CONT .Q10H STACY Last Infusion: 07/22/18 06:29 Dose: 100 mls/hr Lactulose (Lactulose Liq) 30 ml PO DAILY PRN PRN Reason: SEVERE CONSITIPATION Lorazepam (Ativan) 1 mg PO Q4H PRN PRN Reason: for CIWA 8-10 Lorazepam (Ativan) 2 mg PO Q2H PRN PRN Reason: for CIWA 11-14 Lorazepam (Ativan Inj) 2 mg IV.PUSH Q2H PRN PRN Reason: for CIWA 11-14 Lorazepam (Ativan Inj) 2 mg IV.PUSH Q1H PRN PRN Reason: for CIWA 15-20 Lorazepam (Ativan Inj) 2 mg IV.PUSH Q15M PRN PRN Reason: for CIWA > 20 Lorazepam (Ativan Inj) 1 mg IV.PUSH Q4H PRN PRN Reason: for CIWA 8-10 Morphine Sulfate (Morphine Inj) 2 mg IV.PUSH Q4H PRN PRN Reason: PAIN 6-10 Last Admin: 11/25/18 06:05 Dose: 2 mg Multivitamins/Minerals (Theragran-M) 1 tab PO DAILY [facility] Stop: 07/27/18 08:59 Last Admin: 07/22/18 08:11 Dose: 1 tab Ondansetron HCl (Zofran Inj) 4 mg IV.PUSH Q6H PRN PRN Reason: NAUSEA OR VOMITING Last Admin: 07/22/18 06:05 Dose: 4 mg Pantoprazole Sodium (Protonix Inj) 40 mg IV.PUSH Q12H [facility] Last Admin: 07/22/18 08:11 Dose: 40 mg Senna/Docusate Sodium (Olivia-Colace) 1 tab PO BID [facility] Last Admin: 07/22/18 08:12 Dose: Not Given Sennosides (Senokot) 17.2 mg PO Q12H PRN PRN Reason: Moderate Constipation Sodium Chloride (Ns Flush) 2 ml IV.FLUSH PRN PRN PRN Reason: FLUSH AFTER USING IV ACCESS Thiamine HCl (Vitamin B1) 100 mg PO DAILY [facility] Allergies Allergy/AdvReac Type Severity Reaction Status Date / Time Sulfa (Sulfonamide Allergy Intermediate rash Verified 07/22/18 01:39 Antibiotics) Penicillins Allergy Unknown Weakness Verified 07/22/18 01:39 Home Medications Medication Instructions Recorded Confirmed Type levothyroxine [Synthroid] 75 mcg PO DAILY 03/15/18 07/22/18 History desvenlafaxine succinate 100 mg PO DAILY 04/15/18 07/22/18 History srocyq-sjobtsnb-gxlaakv [Creon] 2 cap PO TID 04/15/18 07/22/18 History losartan 100 mg PO DAILY 04/15/18 07/22/18 History promethazine 25 mg PO Q6H PRN 04/15/18 07/22/18 History Exam Vital signs: Vital Signs 07/22/18 01:20 07/22/18 01:50 07/22/18 02:08 Temperature 97.9 F Pulse Rate 93 H 96 H Respiratory Rate 16 22 18 Blood Pressure 123/72 119/72 Pulse Oximetry 98 100 07/22/18 04:00 07/22/18 04:16 Temperature 98.5 F Pulse Rate 91 H 93 H Respiratory Rate 20 Blood Pressure 137/62 Pulse Oximetry 96 Intake & Output 07/21/18 07/22/18 07/22/18 18:59 06:59 18:59 Intake Total 335 / 335 Balance 335 / 335 Weight 56 kg Intake: IV 335 / 335 NS Inj 1,000 ML @ 100 mls/hr IV 235 / 235 .CONT .Q10H STACY Rx#:[id number] Magnesium Sulfate 1 gm/D5W 100 100 / 100 ml Premix 100 ML @ 100 mls/hr IV.SIG ONCE ONE Rx#:[id number] Oral 0 / 0 Other: Date of Last Bowel Movement 07/21/18 Weight On Admission 55.9 kg Narrative: GENERAL: Well-developed, frail and cachectic, in no acute distress. alert and orientated HEENT: Head is normocephalic without any lesions or masses noted. Facial features are symmetric. Eyes: Pupils equal round reactive to light. Extraocular muscles are intact. Conjunctivae were clear. Oropharyngeal: Pharynx without any erythema edema. Tongue is midline without deviation. Buccal mucosa is moist without any masses or lesions. Hard of hearing NECK: Supple without any masses. Trachea midline no deviation. No JVD, no bruits are appreciated CARDIAC: Regular rhythm, regular rate. S1/S2 are heard. 2/6 ejection murmur, gallops or rubs. LUNGS: Clear to auscultation bilaterally. No wheeze, rhonchi or rales. No use of accessory muscles on inspiration or expiration. ABDOMEN: Soft, epigastric abdominal tenderness. Nondistended. Bowel sounds heard in all 4 quadrants. No organomegaly or masses. Negative rebound, negative guarding EXTREMITIES: No edema, pulses are equal bilaterally. No cyanosis or clubbing NEUROLOGY: Mood and affect appear appropriate. Cranial nerves II through XII grossly intact. Muscle strength 5/5 in upper and lower extremities bilaterally. Deep tendon reflexes are 2+ in upper and lower extremities bilaterally. Results - Labs CBC & Chem 7: 07/22/18 01:40 07/22/18 07:30 Labs: Laboratory Results - last 24 hr 07/22/18 07/22/18 07/22/18 01:40 01:40 07:30 CBC w Diff Auto diff final WBC 11.0 RBC 3.84 L Hgb 12.9 Hct 37.9 MCV 98.7 MCH 33.7 MCHC 34.1 RDW 18.9 H Plt Count 307 MPV 7.0 Neut % (Auto) 70.4 H Lymph % (Auto) 14.7 [place] % (Auto) 14.1 H Eos % (Auto) 0.3 Baso % (Auto) 0.5 Neut # (Auto) 7.8 H Lymph # (Auto) 1.6 [place] # (Auto) 1.5 H Eos # (Auto) 0.0 Baso # (Auto) 0.1 WBC Differential . Differential Comment . Sodium 129 L 133 L Potassium 2.8 L* 3.0 L Chloride 93 L 98 Carbon Dioxide 22.1 25.6 Anion Gap 14 9 BUN 12 12 Creatinine 1.10 H 0.90 Estimated GFR 49 L 62 L POC Glucose Random Glucose 106 95 Calcium 7.8 L 7.6 L Magnesium 1.4 L 1.9 Total Bilirubin 0.9 AST 70 H ALT 30 Alkaline Phosphatase 150 H Troponin I 0.02 Total Protein 6.5 Albumin 2.9 L Lipase 3526 H 1155 H Serum Alcohol Less than 3 07/22/18 08:10 CBC w Diff WBC RBC Hgb Hct MCV MCH MCHC RDW Plt Count MPV Neut % (Auto) Lymph % (Auto) [place] % (Auto) Eos % (Auto) Baso % (Auto) Neut # (Auto) Lymph # (Auto) [place] # (Auto) Eos # (Auto) Baso # (Auto) WBC Differential Differential Comment Sodium Potassium Chloride Carbon Dioxide Anion Gap BUN Creatinine Estimated GFR POC Glucose 105 Random Glucose Calcium Magnesium Total Bilirubin AST ALT Alkaline Phosphatase Troponin I Total Protein Albumin Lipase Serum Alcohol - Imaging Impressions Abdomen/Pelvis CT 07/22/18 01:36 CONCLUSION: 1. Relatively stable findings of chronic pancreatitis with pancreatic ductal dilatation and some prominence of the pancreatic head. 2. Small calcified gallstones in the gallbladder. 3. Multiple small hepatic and renal cysts. 4. Stable mild compression deformity at T12. Chest X-Ray 07/22/18 01:36 CONCLUSION: No active disease. Mild scoliosis. Caprini VTE Risk Assessment Caprini VTE Risk Assessment: Moderate/High Risk (score >= 2) Caprini Risk Assessment Model: Point Value = 1 Point Value = 2 Point Value = 3 Point Value = 5 Age 41-60 Minor surgery BMI > 25 kg/m2 Swollen legs Varicose veins or History of unexplained or recurrent spontaneous Oral contraceptives or hormone replacement Sepsis (< 1 month) Serious lung disease, including pneumonia (< 1 month) Abnormal pulmonary function Acute myocardial infarction Congestive heart failure (< 1 month) History of inflammatory bowel disease Medical patient at bed rest Age 61-74 Arthroscopic surgery Major open surgery (> 45 min) Laparoscopic surgery (> 45 min) Malignancy Confined to bed (> 72 hours) Immobilizing plaster cast Central venous access Age >= 75 History of VTE Family history of VTE Factor V Leiden Prothrombin [id number] Lupus anticoagulant Anticardiolipin antibodies Elevated serum homocysteine Heparin-induced thrombocytopenia Other congenital or acquired thrombophilia Stroke (< 1 month) Elective arthroplasty Hip, pelvis, or leg fracture Acute spinal cord injury (< 1 month) Prophylaxis Regimen: Total Risk Factor Score Risk Level Prophylaxis Regimen 0-1 Low Early ambulation 2 Moderate Order ONE of the following: *Sequential Compression Device (SCD) *Heparin 5000 units SQ BID 3-4 Higher Order ONE of the following medications: *Heparin 5000 units SQ TID *Enoxaparin/Lovenox 40 mg SQ daily (WT < 150 kg, CrCl > 30 mL/min) *Enoxaparin/Lovenox 30 mg SQ daily (WT < 150 kg, CrCl > 10-29 mL/min) *Enoxaparin/Lovenox 30 mg SQ BID (WT < 150 kg, CrCl > 30 mL/min) AND/OR *Sequential Compression Device (SCD) 5 or more Highest Order ONE of the following medications: *Heparin 5000 units SQ TID (Preferred with Epidurals) *Enoxaparin/Lovenox 40 mg SQ daily (WT < 150 kg, CrCl > 30 mL/min) *Enoxaparin/Lovenox 30 mg SQ daily (WT < 150 kg, CrCl > 10-29 mL/min) *Enoxaparin/Lovenox 30 mg SQ BID (WT < 150 kg, CrCl > 30 mL/min) AND *Sequential Compression Device (SCD) Assessment and Plan - Assessment (1) Acute pancreatitis Code(s): K85.90 - Acute pancreatitis without necrosis or infection, unspecified Status: Acute (2) Hypokalemia Code(s): E87.6 - Hypokalemia Status: Acute - Plan Acute on chronic pancreatitis likely secondary to alcohol use -CT scan does indicate stable chronic pancreatitis with ductal dilatation -Lipase level was elevated and is trending downward at this time. Continue to trend lipase level -Start clear liquid diet -Continue pain control Electrolyte abnormalities with hypokalemia, hyponatremia -Continue to monitor and replace as needed Pruritus -Likely secondary to morphine use -Start Benadryl Chronic alcohol use -Seizure precautions -CIWA protocol -Thiamine and folic acid Hypertension, hypothyroidism -Continue home medications DVT prevention -Sequential compression devices
[2018-07-22] MEDS ORDERED: DESVENLAFAXINE 100 MG PO SCH (09:00)
[2018-07-22] MEDS ORDERED: Potassium Chloride 25 MEQ Effervescent Tablet PO ONE (09:00)
[2018-07-22] MEDS: Lipase/Protease/Amylase 24/76/120 DR Capsule PO SCH ×3 (10:08→18:07)
[2018-07-22] MEDS: Levothyroxine 75 MCG Tablet PO SCH (10:09)
[2018-07-22 10:23] LABS: Bilirubin,Urine Negative (Negative); Clarity,Urine Clear (Clear); Color,Urine Yellow (Yellw/Straw); Glucose,Urine (UA) Negative (Negative); Leukocyte Esterase,Urine Negative (Negative); Nitrite,Urine Negative (Negative); PH,Urine 6.5 (5.0-8.5); Specific Gravity,Urine Less/Equal 1.005 (1.002-1.035)
[2018-07-22 10:40] LABS: Bacteria,Urine Occasional /hpf; WBC,Urine 0-5 /hpf (0-5)
[2018-07-22] MEDS: DESVENLAFAXINE 100 MG PO SCH (13:01)
--- NOTE | 2018-07-22 13:50 | ECG ---
Date Performed: 07/22/2018 Time Performed: 02:19:32 PTAGE: 73 years EKG: Sinus rhythm MODERATE ST DEPRESSION ABNORMAL ECG Since the PREVIOUS TRACING , no significant change noted PREVIOUS TRACIN04/17/2018 07.22 DOCTOR: Abisai Fair Interpretating Date/Time 07/22/2018 13:48:04
[2018-07-23] MEDS: Levothyroxine 75 MCG Tablet PO SCH (05:04)
[2018-07-23 05:44] LABS: Baso % (Auto) 0.5 % (0.0-2.0); Eos # (Auto) 0.1 th/mm3 (0.0-0.4); Eos % (Auto) 1.4 % (0.0-4.0); Hematocrit 31.7 % (35.0-46.0); Hemoglobin 10.9 gm/dL (11.6-15.3); Lymph # (Auto) 1.2 th/mm3 (1.0-4.8); Lymph % (Auto) 17.7 % (9.0-44.0); Mean Corpuscular HGB Conc 34.5 % (32.0-36.0); Mean Corpuscular Hemoglobin 34.5 pg (27.0-34.0); Mean Corpuscular Volume 99.9 fL (80.0-100.0); Mean Platelet Volume 6.8 fL (7.0-11.0); Mono # (Auto) 0.9 th/mm3 (0.0-0.9); Neut # (Auto) 4.3 th/mm3 (1.8-7.7); Neut % (Auto) 66.4 % (16.0-70.0); Platelet Count 251 th/mm3 (150-450); Red Blood Count 3.17 mil/mm3 (4.00-5.30); Red Cell Distribution Width 20.2 % (11.6-17.2); White Blood Count 6.5 th/mm3 (4.0-11.0)
[2018-07-23 05:56] LABS: Ovalocytes 1+; Platelet Estimate Normal (Normal); Platelet Morphology Normal (Normal)
[2018-07-23 06:03] LABS: Alanine Aminotransferase 21 U/L (10-53); Albumin 2.2 g/dL (3.4-5.0); Anion Gap 9 meq/L (5-15); Aspartate Aminotransferase 35 U/L (15-37); Blood Urea Nitrogen 12 mg/dL (7-18); Calcium 7.5 mg/dL (8.5-10.1); Carbon Dioxide 22.4 meq/L (21.0-32.0); Chloride 106 meq/L (98-107); Glomerular Filtration Rate 87 mL/min (>89); Glucose,Random 86 mg/dL (74-106); Potassium 4.2 meq/L (3.5-5.1); Sodium 137 meq/L (136-145)
[2018-07-23 06:05] LABS: Alkaline Phosphatase 117 U/L (45-117); Lipase 2858 U/L (73-393); Total Protein 5.2 g/dL (6.4-8.2)
--- NOTE | 2018-07-23 08:46 | P.PNIM ---
Subjective Interval history: 73-year-old female who is seen and examined today for follow-up on pancreatitis. Patient states that she is doing much better and wants to go home. Clinically she is stable. CIWA scores do not indicate any withdrawal symptoms. Vital signs are stable. Patient remains afebrile. Physical Exam Vital signs: Vital Signs 07/22/18 12:00 07/22/18 16:00 07/22/18 16:01 Temperature 97.4 F L 98.2 F Pulse Rate 73 78 Respiratory Rate 20 20 16 Blood Pressure 109/60 115/65 Pulse Oximetry 97 98 07/22/18 20:00 07/22/18 21:53 07/23/18 00:00 Temperature 97.9 F 97.5 F L Pulse Rate 82 79 Respiratory Rate 18 16 18 Blood Pressure 110/64 138/75 Pulse Oximetry 97 97 07/23/18 04:00 Temperature 96.5 F L Pulse Rate 78 Respiratory Rate 18 Blood Pressure 136/70 Pulse Oximetry 96 Intake & Output 07/22/18 07/23/18 07/23/18 18:59 06:59 18:59 Intake Total 1300 / 1300 1240 / 1240 Output Total 700 / 700 250 / 250 Balance 600 / 600 990 / 990 Weight 60.6 kg Intake: IV 1300 / 1300 1000 / 1000 NS + KCl 20 mEq Inj 1,000 ML @ 1000 / 1000 1000 / 1000 100 mls/hr IV.CONT .Q10H STACY Rx #:[id number] NS Inj 1,000 ML @ 100 mls/hr IV 300 / 300 .CONT .Q10H STACY Rx#:[id number] Oral 0 / 0 240 / 240 Output: Urine 700 / 700 250 / 250 Other: Date of Last Bowel Movement 07/22/18 Narrative: GENERAL: Well-developed, frail and cachectic, in no acute distress. alert and orientated HEENT: Head is normocephalic without any lesions or masses noted. Facial features are symmetric. Eyes: Extraocular muscles are intact. Conjunctivae were clear. NECK: Supple without any masses. Trachea midline no deviation. No JVD, CARDIAC: Regular rhythm, regular rate. S1/S2 are heard. 2/6 ejection murmur, gallops or rubs. LUNGS: Clear to auscultation bilaterally. No wheeze, rhonchi or rales. No use of accessory muscles on inspiration or expiration. ABDOMEN: Soft, epigastric abdominal tenderness. Nondistended. Bowel sounds heard in all 4 quadrants. No organomegaly or masses. Negative rebound, negative guarding EXTREMITIES: No edema, pulses are equal bilaterally. No cyanosis or clubbing NEUROLOGY: Mood and affect appear appropriate. Cranial nerves II through XII grossly intact. Moving all extremities, speech is clear Results - Labs CBC & Chem 7: 07/23/18 04:50 07/23/18 04:50 Laboratory Results - last 24 hr 07/22/18 07/22/18 07/22/18 10:15 11:18 16:19 CBC w Diff WBC RBC Hgb Hct MCV MCH MCHC RDW Plt Count MPV Neut % (Auto) Lymph % (Auto) [place] % (Auto) Eos % (Auto) Baso % (Auto) Neut # (Auto) Lymph # (Auto) [place] # (Auto) Eos # (Auto) Baso # (Auto) WBC Differential Diff Scan Differential Comment Platelet Estimate Platelet Morphology Ovalocytes Sodium Potassium Chloride Carbon Dioxide Anion Gap BUN Creatinine Estimated GFR POC Glucose 93 90 Random Glucose Calcium Total Bilirubin AST ALT Alkaline Phosphatase Total Protein Albumin Lipase Ur Collection Type Cath Urine Color Yellow Urine Clarity Clear Urine pH 6.5 Ur Specific [place] Less/equal 1.005 Urine Protein Negative Urine Glucose (UA) Negative Urine Ketones Negative Urine Occult Blood Trace Urine Nitrate Negative Urine Bilirubin Negative Urine Urobilinogen 2.0 H Ur Leukocyte Esterase Negative Urine WBC 0-5 Ur Squamous Epith Cells 6-10 H Urine Bacteria Occasional H Micro UA Comment Culture not ind Ur Microscopic Review Microscopic reviewed Urine Culture Comments Culture not ind 07/23/18 07/23/18 07/23/18 04:50 04:50 07:37 CBC w Diff Slide review pending WBC 6.5 RBC 3.17 L Hgb 10.9 L D Hct 31.7 L MCV 99.9 MCH 34.5 H MCHC 34.5 RDW 20.2 H Plt Count 251 MPV 6.8 L Neut % (Auto) 66.4 Lymph % (Auto) 17.7 [place] % (Auto) 14.0 H Eos % (Auto) 1.4 Baso % (Auto) 0.5 Neut # (Auto) 4.3 Lymph # (Auto) 1.2 [place] # (Auto) 0.9 Eos # (Auto) 0.1 Baso # (Auto) 0.0 WBC Differential . Diff Scan Auto diff confirmed Differential Comment . Platelet Estimate Normal Platelet Morphology Normal Ovalocytes 1+ H Sodium 137 Potassium 4.2 D Chloride 106 D Carbon Dioxide 22.4 Anion Gap 9 BUN 12 Creatinine 0.67 Estimated GFR 87 L POC Glucose 94 Random Glucose 86 Calcium 7.5 L Total Bilirubin 0.7 AST 35 ALT 21 Alkaline Phosphatase 117 Total Protein 5.2 L D Albumin 2.2 L D Lipase 2858 H Ur Collection Type Urine Color Urine Clarity Urine pH Ur Specific Richards Urine Protein Urine Glucose (UA) Urine Ketones Urine Occult Blood Urine Nitrate Urine Bilirubin Urine Urobilinogen Ur Leukocyte Esterase Urine WBC Ur Squamous Epith Cells Urine Bacteria Micro UA Comment Ur Microscopic Review Urine Culture Comments Assessment and Plan - Assessment (1) Acute pancreatitis Code(s): K85.90 - Acute pancreatitis without necrosis or infection, unspecified Status: Acute (2) Hypokalemia Code(s): E87.6 - Hypokalemia Status: Acute - Plan Acute on chronic pancreatitis likely secondary to alcohol use -CT scan does indicate stable chronic pancreatitis with ductal dilatation -Patient clinically stable and improved. However lipase level did go up this morning -Discussed with the patient that we will repeat lipase level this afternoon and if it improves could possibly discharge later this afternoon. -Continue clear liquid diet -Continue pain control Electrolyte abnormalities with hypokalemia, hyponatremia -Continue to monitor and replace as needed Pruritus -Likely secondary to morphine use -Continue Benadryl Chronic alcohol use -Seizure precautions -WA protocol, patient has not required any medications for withdrawal -Thiamine and folic acid Hypertension, hypothyroidism -Continue home medications DVT prevention -Sequential compression devices Discharge Planning: Possible discharge later this afternoon if lipase level improved and she continues to tolerate diet.
[2018-07-23] MEDS: Folic Acid 1 MG Tablet PO SCH (08:54)
[2018-07-23] MEDS: DESVENLAFAXINE 100 MG PO SCH (08:54)
[2018-07-23] MEDS: Lipase/Protease/Amylase 24/76/120 DR Capsule PO SCH ×3 (08:54→17:39)
[2018-07-23] MEDS: Senna/Docusate Sodium 8.6/50 MG Tablet PO SCH ×2 (08:54→21:53)
[2018-07-23] MEDS: Pantoprazole Inj 40 MG Vial IV.PUSH SCH ×2 (08:54→21:53)
[2018-07-23] MEDS: Multivitamin/Minerals Therapeutic Tablet PO SCH (08:54)
[2018-07-23] MEDS: Morphine Inj 4 MG/ML Vial IV.PUSH PRN ×2 (09:15→21:52)
--- NOTE | 2018-07-23 09:19 | P.DCO ---
- Diagnosis (1) ETOH abuse Status: Acute (2) Seizure Status: Acute (3) Acute pancreatitis Status: Acute - Physical Therapy Order: Evaluate and treat, Improve ambulation, Strength and gait training - Home Health Nursing Order: Medical education, Signs/symptoms of disease process, Nursing assessment with vital signs - Case Management Consult Case Management Consult-Home Health: Yes - Certification I have seen patient Sita Harvey on 07/23/18. My clinical findings support the need for the requested home health care services because: Deconditioned with increased weakness I certify that my clinical findings support that this patient is homebound because: Unsafe to leave home unassisted
[2018-07-24] MEDS: Morphine Inj 4 MG/ML Vial IV.PUSH PRN (06:49)
[2018-07-24] MEDS: Levothyroxine 75 MCG Tablet PO SCH (06:49)
--- NOTE | 2018-07-24 08:03 | P.DS ---
Date of admission: 07/22/18 02:56 Primary care physician: Maxi Branch MD Anticipated date of discharge: 07/24/18 Brief History from admission: 73-year-old female with known history of hypertension, hypothyroidism, chronic alcohol abuse, chronic pancreatitis who presented to the hospital for evaluation of abdominal pain, nausea for 3 days. Patient states that she has had severe nausea with epigastric abdominal pain for 3 days that has not gotten any better so she came to the hospital for evaluation. Patient had workup done in emergency department and found to have an elevated lipase level with CT finding of acute on chronic pancreatitis, significant hypokalemia. It was recommended by the ER physician the patient be admitted for further evaluation and management. 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 She continues to drink alcohol on a daily basis. Upon evaluating patient this morning she still experiencing epigastric abdominal pain. Still feeling nauseated. Does not have an appetite. Patient update on day of discharge: Follow up acute pancreatitis. Patient seen and examined, lying in bed comfortably. Denies any pain. Tolerating PO intake without any nausea or vomiting or pain. Eager to go home. Advised to avoid all alcohol. DS: Diagnosis - Discharge Diagnosis (1) Acute pancreatitis Status: Acute (2) ETOH abuse Status: Acute DS: Summary Hospital Course: This is a 73-year-old female patient who presented with acute on chronic pancreatitis likely secondary to alcohol use. CT scan does indicate stable chronic pancreatitis with ductal dilatation. Patient clinically stable and improved. Lipase trending down. Tolerating p.o. intake without any nausea vomiting or abdominal pain. Patient did present with electrolyte abnormalities including hypokalemia and hyponatremia which have been replaced and normalized. Patient does have some pruritus, was given Benadryl and this is improved. Patient does have a history of chronic alcohol use, advised to avoid all alcohol together. Placed on seizure precautions, no indication of any withdrawals or seizures. Patient was given thiamine and folic acid. Patient advised to avoid all alcohol. Patient has a history of hypertension hypothyroidism which were stabilized during hospitalization. Patient will discharge home to follow-up with PCP. Avoid all alcohol. Rx is written. Activity as tolerated. Diet as tolerated. Patient is stable at this time and agreeable with plan. - Time Spent with Patient Total time spent providing and/or coordinating discharge services: Greater than 30 minutes - Quality: VTE Deep Vein Thrombosis/Pulmonary Embolism Present on Admission: No Exam Vital signs: Vital Signs 07/23/18 11:28 07/23/18 16:00 07/23/18 20:00 Temperature 98.8 F 97.8 F 99.4 F Pulse Rate 82 84 89 Respiratory Rate 18 18 18 Blood Pressure 133/78 134/78 165/75 H Pulse Oximetry 97 100 97 07/24/18 00:00 Temperature 97.8 F Pulse Rate 98 H Respiratory Rate 18 Blood Pressure 115/64 Pulse Oximetry 94 L Intake & Output 07/23/18 07/24/18 07/24/18 18:59 06:59 18:59 Intake Total 1000 / 1000 1095 / 1095 Output Total 250 / 250 Balance 1000 / 1000 845 / 845 Weight 64.5 kg Intake: IV 1000 / 1000 975 / 975 NS + KCl 20 mEq Inj 1,000 ML @ 1000 / 1000 975 / 975 100 mls/hr IV.CONT .Q10H STACY Rx #:[id number] Oral 120 / 120 Output: Urine 250 / 250 Other: Date of Last Bowel Movement 07/23/18 07/23/18 Narrative: GENERAL: Well-developed, well-nourished patient in [facility]. SKIN: Warm and dry. No rash. HEAD: Normocephalic. Atraumatic. EYES: Pupils equal and round. No scleral icterus. No injection or drainage. ENT: No nasal bleeding or discharge. Mucous membranes pink and moist. NECK: Supple. Trachea midline. CARDIOVASCULAR: Regular rate and rhythm. S1, S2 noted. No murmur appreciated. RESPIRATORY: No accessory muscle use. Clear to auscultation. Breath sounds equal bilaterally. GASTROINTESTINAL: Abdomen soft, non-tender, nondistended. Normoactive bowel sounds x4. No abdominal pain to palpation. MUSCULOSKELETAL: No obvious deformities. Extremities without clubbing, cyanosis , or edema. NEUROLOGICAL: Awake and alert. No obvious cranial nerve deficits. Motor grossly within normal limits. 5/5 muscle strength in bilateral upper and lower extremities. Normal speech. PSYCHIATRIC: Appropriate mood and affect; insight and judgment normal. Results Procedures completed during hospitalization: See above. Labs on day of discharge: Labs from last 24 hours 07/24/18 07/24/18 07/23/18 05:00 01:30 16:13 POC Glucose 85 88 Lipase 599 H 07/23/18 07/23/18 16:05 11:38 POC Glucose 90 Lipase 1874 H - Impressions ITS Impressions Abdomen/Pelvis CT 07/22/18 01:36 CONCLUSION: 1. Relatively stable findings of chronic pancreatitis with pancreatic ductal dilatation and some prominence of the pancreatic head. 2. Small calcified gallstones in the gallbladder. 3. Multiple small hepatic and renal cysts. 4. Stable mild compression deformity at T12. Chest X-Ray 07/22/18 01:36 CONCLUSION: No active disease. Mild scoliosis. Discharge Plan - Discharge Disposition Patient Disposition: Discharge Home - Discharge Condition Condition: Stable - Discharge Order Discharge Orders: Discharge Order (Routine); Ordered 07/24/18 Ordered By: Flor Urbano - Discharge Details Anticipated Discharge Date: 07/24/18 - Physicians Team Primary Care Provider: Maxi Branch Attending Provider: Trey Guerrier
[2018-07-24 08:12] VITALS: BP 158/70; PULSE 81; RESP 12; TEMP 98.8; O2SAT 96
[2018-07-24] MEDS: Lipase/Protease/Amylase 24/76/120 DR Capsule PO SCH (08:18)
[2018-07-24] MEDS: DESVENLAFAXINE 100 MG PO SCH (08:18)
[2018-07-24] MEDS: Multivitamin/Minerals Therapeutic Tablet PO SCH (08:19)
[2018-07-24] MEDS: Pantoprazole Inj 40 MG Vial IV.PUSH SCH (08:20)
[2018-07-24] MEDS: Folic Acid 1 MG Tablet PO SCH (08:22)
[2018-07-24] MEDS: Senna/Docusate Sodium 8.6/50 MG Tablet PO SCH (08:23)
== END 2018-07-24 11:12 | disposition home or self-care (01) ==
LOC: PHED 01:12 → PHEDA 02:56 → PH3 04:02
PROVIDERS: ADMIT Internal Medicine; ATTEND Internal Medicine

== ENCOUNTER 2018-08-14 13:22 | Inpatient (IN) ==
--- NOTE | 2018-08-14 14:20 | ED ---
HPI General Chief complaint: Syncope Stated complaint: Syncope Time Seen by Provider: 08/14/18 13:58 History of Present Illness HPI narrative: 73-year-old female with history of alcoholism, hypertension, hypothyroidism, chronic pancreatitis presents via EMS for evaluation of a syncopal event. The patient does not recall the event. According to the nursing report the patient was ambulating at her home when she passed out. A home health care nurse helped break her fall and lowered her to the ground. The patient reports that she has been having nausea throughout the morning but this is improved. She also has some right shoulder pain and upper back pain which is worse with movement and she believes that it may be from the fall. She denies chest pain, shortness of breath, headache, dizziness, blurred vision , abdominal pain, numbness or tingling or weakness in extremities. She has no other complaints at this time. Primary care physician is Dr. Branch. Related Data Home Medications Medication Instructions Recorded Confirmed levothyroxine [Synthroid] 75 mcg PO DAILY 03/15/18 08/14/18 desvenlafaxine succinate 100 mg PO DAILY 04/15/18 08/14/18 [id number] [Creon] 2 cap PO TID 04/15/18 08/14/18 losartan 100 mg PO DAILY 04/15/18 08/14/18 promethazine 25 mg PO Q6H PRN 04/15/18 08/14/18 phenytoin sodium extended 100 mg PO TID 08/14/18 08/14/18 phenytoin sodium extended 30 mg PO TID 08/14/18 08/14/18 [Dilantin] Previous Rx's Medication Instructions Recorded folic acid 1 mg PO DAILY 30 Days #30 tab 07/24/18 thiamine HCl (vitamin B1) 100 mg PO DAILY 30 Days #30 tab 07/24/18 Allergies Allergy/AdvReac Type Severity Reaction Status Date / Time Sulfa (Sulfonamide Allergy Intermediate rash Verified 07/22/18 01:39 Antibiotics) Penicillins Allergy Unknown Weakness Verified 07/22/18 01:39 Review of Systems ROS: all other systems reviewed are negative [facility] Medical History Medical History Abuse, drug or alcohol (Acute) Appendicitis (Acute) Depression (Acute) History of cancer of left breast (Acute) Hypertension (Acute) Hypothyroid (Acute) Pancreatitis (Acute) Surgical History Surgical History H/O: hysterectomy (Acute) History of lumpectomy of left breast (Acute) Family History Family History Mother Family history of hypertension Father History of prostate cancer Social History Social History Substance History: No History of Abuse Second Hand Smoke Exposure: No Smoking Status: Former smoker Tobacco Type: Cigarettes How Often Do You Have a Drink Containing Alcohol: 4 or more times a week Recent Travel in [facility] within the Last 8 Weeks: No Recent Out of Country Travel within the Last 8 Weeks: No Exam Narrative Exam Narrative: GENERAL: Pleasant well-developed well-nourished female no acute distress SKIN: Warm and dry. HEAD: Atraumatic. Normocephalic. EYES: Pupils equal and round. No scleral icterus. No injection or drainage. ENT: No nasal bleeding or discharge. Mucous membranes pink and moist. NECK: Trachea midline. No JVD. CARDIOVASCULAR: Regular rate and rhythm. No murmur appreciated. RESPIRATORY: No accessory muscle use. Clear to auscultation. Breath sounds equal bilaterally. GASTROINTESTINAL: Abdomen soft, non-tender, nondistended. Hepatic and splenic margins not palpable. MUSCULOSKELETAL: No obvious deformities. No clubbing. No cyanosis. No edema. There is some tenderness to palpation to the upper back, lateral right shoulder. The patient maintains full range of motion of the extremities. She has pain with range of motion activities of the right shoulder. NEUROLOGICAL: Awake and alert. No obvious cranial nerve deficits. Motor grossly within normal limits. Normal speech. Normal finger to nose bilaterally. Course Initial Documented Vital Signs Temperature 98.1 F 08/14/18 13:39 Pulse Rate 86 08/14/18 13:39 Respiratory Rate 20 08/14/18 13:39 Blood Pressure 142/66 H 08/14/18 13:39 Pulse Oximetry 100 08/14/18 13:39 Last Documented Vital Signs Temperature 99.8 F H 08/15/18 23:19 Pulse Rate 79 08/15/18 23:19 Respiratory Rate 17 08/15/18 23:19 Blood Pressure 126/60 08/15/18 23:19 Pulse Oximetry 98 08/15/18 23:19 Medical Decision Making ALFREDA Attestation ALFREDA supervised visit: Yes Attestation: I, Dr. Keith, have reviewed the advance practice practitioner's documentation and am in agreement, met with the patient face to face, made the diagnosis, and the medical decision making was done by me. *My assessment and Findings: Dizziness. Unsteady on the feet. MDM Narrative Medical decision making narrative: The patient was placed on ECG monitoring pulse oximetry. Twelve-lead EKG obtained reveals sinus rhythm, slight ST depression noted in leads V3 through V5, consistent with previous EKG on July 22. Lab work, chest x-ray, right shoulder x-ray, thoracic spine x-ray ordered. Lab work and imaging studies. Orthostatic vital signs were obtained, she did feel lightheaded when she was standing. I attempted to ambulate the patient however she was unsteady on her feet and unable to ambulate without feeling like she was going to pass out. Therefore 500 mL of fluid bolus has been ordered, CT of the brain has been ordered, she will be admitted for observation. Medical Screen Exam Complete: Yes Emergency Medical Condition: Yes Lab Data Result diagrams: 08/15/18 05:06 08/15/18 05:06 Lab Results 08/14/18 08/14/18 08/14/18 Range/Units 14:34 14:34 14:34 WBC 9.8 (4.0-11.0) th/mm3 RBC 3.49 L (4.00-5.30) mil/mm3 Hgb 12.7 (11.6-15.3) gm/dL Hct 37.1 (35.0-46.0) % MCV 106.1 H (80.0-100.0) fL MCH 36.5 H (27.0-34.0) pg MCHC 34.4 (32.0-36.0) % RDW 18.3 H (11.6-17.2) % Plt Count 273 (150-450) th/mm3 MPV 7.1 (7.0-11.0) fL Neut % (Auto) 75.9 H (16.0-70.0) % Lymph % (Auto) 11.6 (9.0-44.0) % [place] % (Auto) 11.9 H (0.0-8.0) % Eos % (Auto) 0.2 (0.0-4.0) % Baso % (Auto) 0.4 (0.0-2.0) % Neut # (Auto) 7.4 (1.8-7.7) th/mm3 Lymph # (Auto) 1.1 (1.0-4.8) th/mm3 [place] # (Auto) 1.2 H (0.0-0.9) th/mm3 Eos # (Auto) 0.0 (0.0-0.4) th/mm3 Baso # (Auto) 0.0 (0.0-0.2) th/mm3 WBC Differential . Differential Comment Auto diff final Sodium 136 (136-145) meq/L Potassium 3.1 L (3.5-5.1) meq/L Chloride 104 (98-107) meq/L Carbon Dioxide 21.7 (21.0-32.0) meq/L Anion Gap 10 (5-15) meq/L BUN 14 (7-18) mg/dL Creatinine 0.71 (0.50-1.00) mg/dL Estimated GFR 81 L (>89) mL/min POC Glucose (68-110) mg/dl Random Glucose 97 (74-106) mg/dL Calcium 7.7 L (8.5-10.1) mg/dL Magnesium 1.9 (1.5-2.5) mg/dL Total Bilirubin (0.2-1.0) mg/dL AST (15-37) U/L ALT (10-53) U/L Alkaline Phosphatase (45-117) U/L Total Creatine Kinase 62 (26-192) U/L Troponin I Less than 0.02 L (0.02-0.05) ng/mL Total Protein (6.4-8.2) g/dL Albumin (3.4-5.0) g/dL TSH (0.358-3.740) uIU/mL Serum Alcohol Less than 3 (0-5) mg/dL 08/15/18 08/15/18 08/15/18 Range/Units 05:06 05:06 09:51 WBC 5.6 (4.0-11.0) th/mm3 RBC 3.31 L (4.00-5.30) mil/mm3 Hgb 12.1 (11.6-15.3) gm/dL Hct 34.5 L (35.0-46.0) % MCV 104.3 H (80.0-100.0) fL MCH 36.5 H (27.0-34.0) pg MCHC 35.0 (32.0-36.0) % RDW 18.3 H (11.6-17.2) % Plt Count 254 (150-450) th/mm3 MPV 7.4 (7.0-11.0) fL Neut % (Auto) 59.5 (16.0-70.0) % Lymph % (Auto) 28.1 (9.0-44.0) % [place] % (Auto) 10.9 H (0.0-8.0) % Eos % (Auto) 1.1 (0.0-4.0) % Baso % (Auto) 0.4 (0.0-2.0) % Neut # (Auto) 3.3 (1.8-7.7) th/mm3 Lymph # (Auto) 1.6 (1.0-4.8) th/mm3 [place] # (Auto) 0.6 (0.0-0.9) th/mm3 Eos # (Auto) 0.1 (0.0-0.4) th/mm3 Baso # (Auto) 0.0 (0.0-0.2) th/mm3 WBC Differential . Differential Comment Auto diff final Sodium 141 (136-145) meq/L Potassium 3.3 L (3.5-5.1) meq/L Chloride 107 (98-107) meq/L Carbon Dioxide 26.2 (21.0-32.0) meq/L Anion Gap 8 (5-15) meq/L BUN 11 (7-18) mg/dL Creatinine 0.69 (0.50-1.00) mg/dL Estimated GFR 84 L (>89) mL/min POC Glucose (68-110) mg/dl Random Glucose 83 (74-106) mg/dL Calcium 8.4 L (8.5-10.1) mg/dL Magnesium 2.2 1.9 (1.5-2.5) mg/dL Total Bilirubin 0.6 (0.2-1.0) mg/dL AST 28 (15-37) U/L ALT 21 (10-53) U/L Alkaline Phosphatase 152 H (45-117) U/L Total Creatine Kinase (26-192) U/L Troponin I (0.02-0.05) ng/mL Total Protein 6.4 (6.4-8.2) g/dL Albumin 2.9 L (3.4-5.0) g/dL TSH 1.580 (0.358-3.740) uIU/mL Serum Alcohol (0-5) mg/dL 08/15/18 Range/Units 11:55 WBC (4.0-11.0) th/mm3 RBC (4.00-5.30) mil/mm3 Hgb (11.6-15.3) gm/dL Hct (35.0-46.0) % MCV (80.0-100.0) fL MCH (27.0-34.0) pg MCHC (32.0-36.0) % RDW (11.6-17.2) % Plt Count (150-450) th/mm3 MPV (7.0-11.0) fL Neut % (Auto) (16.0-70.0) % Lymph % (Auto) (9.0-44.0) % [place] % (Auto) (0.0-8.0) % Eos % (Auto) (0.0-4.0) % Baso % (Auto) (0.0-2.0) % Neut # (Auto) (1.8-7.7) th/mm3 Lymph # (Auto) (1.0-4.8) th/mm3 [place] # (Auto) (0.0-0.9) th/mm3 Eos # (Auto) (0.0-0.4) th/mm3 Baso # (Auto) (0.0-0.2) th/mm3 WBC Differential Differential Comment Sodium (136-145) meq/L Potassium (3.5-5.1) meq/L Chloride (98-107) meq/L Carbon Dioxide (21.0-32.0) meq/L Anion Gap (5-15) meq/L BUN (7-18) mg/dL Creatinine (0.50-1.00) mg/dL Estimated GFR (>89) mL/min POC Glucose 114 H (68-110) mg/dl Random Glucose (74-106) mg/dL Calcium (8.5-10.1) mg/dL Magnesium (1.5-2.5) mg/dL Total Bilirubin (0.2-1.0) mg/dL AST (15-37) U/L ALT (10-53) U/L Alkaline Phosphatase (45-117) U/L Total Creatine Kinase (26-192) U/L Troponin I (0.02-0.05) ng/mL Total Protein (6.4-8.2) g/dL Albumin (3.4-5.0) g/dL TSH (0.358-3.740) uIU/mL Serum Alcohol (0-5) mg/dL Imaging Data Radiologist's impression: Chest X-Ray 08/14/18 14:06 CONCLUSION: No acute cardiopulmonary abnormality is identified. Shoulder X-Ray 08/14/18 14:20 CONCLUSION: 1. Old healed fracture of the right distal clavicle. 2. No acute fracture or dislocation. Thoracic Spine X-Ray 08/14/18 14:20 CONCLUSION: 1. Mild chronic compression deformities involving T11 and T12. 2. Degenerative changes throughout the thoracic spine. 3. No acute compression fracture or subluxation. Head CT 08/14/18 16:04 CONCLUSION: 1. Stable appearance with no acute intracranial abnormality. . Discharge Plan Discharge Disposition Patient Disposition: ED Admit(ED Internal Use Only) Discharge Condition Condition: Stable Discharge Order Discharge Orders: ED Use Only Admit Order (Routine); Ordered 08/14/18 Ordered By: Celestine Mendes Discharge Details Diagnosis: Syncope Physicians Team ED Provider: Pedro Keith ED Midlevel Provider: Celestine Mendes Primary Care Provider: Maxi Branch Attending Provider: Beth Benitez Status ED Status: Left Department Discharge Information Discharge Date/Time: 08/14/18 18:26
--- NOTE | 2018-08-14 14:50 | XR ---
EXAM DATE: 08/14/2018 2:26 PM EST AGE/SEX: 73 years / Female INDICATIONS: Shortness of breath post fall. CLINICAL DATA: This is the patient's initial encounter. Patient reports that signs and symptoms have been present for 1 day and indicates a pain score of 0/10. MEDICAL/SURGICAL HISTORY: . Cerebrovascular disease. Cardiovascular disease. Pancreatitis. Seiz ure. Ulcer. Breast cancer. . Appendectomy. Cholecystectomy. Hysterectomy. . COMPARISON: [facility], CHEST 1V SINGLE AP, 07/22/2018. [facility], CHEST SINGLE AP, 12/20/2017. . FINDINGS: Portable AP view of the chest demonstrates a normal-sized cardiac silhouette. No effusion, consolidat ion, or pneumothorax is identified. The bones and soft tissues demonstrate no acute finding. There are old healed left rib fractures. CONCLUSION: No acute cardiopulmonary abnormality is identified. Electronically signed by: Estevan Graham MD Board Certified Radiologist 08/14/2018 2:49 PM EST
[2018-08-14 14:55] LABS: Baso % (Auto) 0.4 % (0.0-2.0); Eos % (Auto) 0.2 % (0.0-4.0); Hematocrit 37.1 % (35.0-46.0); Hemoglobin 12.7 gm/dL (11.6-15.3); Lymph # (Auto) 1.1 th/mm3 (1.0-4.8); Lymph % (Auto) 11.6 % (9.0-44.0); Mean Corpuscular HGB Conc 34.4 % (32.0-36.0); Mean Corpuscular Hemoglobin 36.5 pg (27.0-34.0); Mean Corpuscular Volume 106.1 fL (80.0-100.0); Mean Platelet Volume 7.1 fL (7.0-11.0); Mono # (Auto) 1.2 th/mm3 (0.0-0.9); Mono % (Auto) 11.9 % (0.0-8.0); Neut # (Auto) 7.4 th/mm3 (1.8-7.7); Neut % (Auto) 75.9 % (16.0-70.0); Platelet Count 273 th/mm3 (150-450); Red Blood Count 3.49 mil/mm3 (4.00-5.30); Red Cell Distribution Width 18.3 % (11.6-17.2); White Blood Count 9.8 th/mm3 (4.0-11.0)
[2018-08-14 15:20] LABS: Anion Gap 10 meq/L (5-15); Blood Urea Nitrogen 14 mg/dL (7-18); Calcium 7.7 mg/dL (8.5-10.1); Carbon Dioxide 21.7 meq/L (21.0-32.0); Chloride 104 meq/L (98-107); Glucose,Random 97 mg/dL (74-106); Magnesium 1.9 mg/dL (1.5-2.5); Potassium 3.1 meq/L (3.5-5.1); Sodium 136 meq/L (136-145)
[2018-08-14 15:24] LABS: Glomerular Filtration Rate 81 mL/min (>89)
[2018-08-14 15:27] LABS: Creatine Kinase 62 U/L (26-192)
--- NOTE | 2018-08-14 15:46 | XR ---
EXAM DATE: 08/14/2018 3:27 PM EST AGE/SEX: 73 years / Female INDICATIONS: Fell today, pain in back, shoulders and chest CLINICAL DATA: This is the patient's initial encounter. Patient reports that signs and symptoms have been present for 1 day and indicates a pain score of 6/10. MEDICAL/SURGICAL HISTORY: Cerebrovascular disease. Cardiovascular disease. Carcinoma, breast. pancreatitis, seizures Appendectomy. Cholecystectomy. Hysterectomy. COMPARISON: [facility] [place], SHOULDER RIGHT COMPLETE (>2VWS), 08/11/2017. . FINDINGS: There is an old healed fracture of the right distal clavicle. There is no acute fracture or dislocati on. CONCLUSION: 1. Old healed fracture of the right distal clavicle. 2. No acute fracture or dislocation. Electronically signed by: Trey Quiroga MD Board Certified Radiologist 08/14/2018 3:45 PM EST
--- NOTE | 2018-08-14 15:55 | XR ---
EXAM DATE: 08/14/2018 3:30 PM EST AGE/SEX: 73 years / Female INDICATIONS: Fell today, pain in upper back, chest and shoulders CLINICAL DATA: This is the patient's initial encounter. Patient reports that signs and symptoms have been present for 1 day and indicates a pain score of 5/10. MEDICAL/SURGICAL HISTORY: Cardiovascular disease. Carcinoma, breast. Cerebrovascular disease. pancreatitis, seizures Appendectomy. Hysterectomy. Cholecystectomy. COMPARISON: [facility], CT ABDOMEN & PELVIS W CONTRAST, 07/22/2018. . FINDINGS: Mild chronic compression deformities are noted involving T11 and T12. Degenerative changes are noted throughout the thoracic spine. No acute compression fracture or subluxation is noted. CONCLUSION: 1. Mild chronic compression deformities involving T11 and T12. 2. Degenerative changes throughout the thoracic spine. 3. No acute compression fracture or subluxation. Electronically signed by: Trey Quiroga MD Board Certified Radiologist 08/14/2018 3:53 PM EST
[2018-08-14] MEDS ORDERED: Sodium Chlor 0.9% Inj 500 ML IV.SIG SCH (16:00)
--- NOTE | 2018-08-14 16:57 | CT ---
EXAM DATE: 08/14/2018 4:53 PM EST AGE/SEX: 73 years / Female INDICATIONS: Dizziness. Syncopal episode. CLINICAL DATA: This is the patient's initial encounter. Patient reports that signs and symptoms have been present for 1 day and indicates a pain score of 4/10. MEDICAL/SURGICAL HISTORY: Carcinoma, breast. Pancreatitis. Seizures. Hypertension. Appendectom y. Hysterectomy. RADIATION DOSE: 36.22 CTDI (mGy) COMPARISON: [facility] [place], CT HEAD W/O CONTRAST, 04/17/2018. . TECHNIQUE: CT of the head without contrast. Using automated exposure control and adjustment of the mA and/or kV according to patient size, radiation dose was kept as low as reasonably achievable to ob tain optimal diagnostic quality images. DICOM format image data is available electronically for revi ew and comparison. FINDINGS: Cerebrum: The ventricles are normal for width moderate atrophic change with ventricular prominence. Mild periventricular white matter changes are again noted as well. No evidence of midline shift, mass lesion, hemorrhage or acute infarction. No extraaxial fluid collections are seen. Posterior Fossa: The cerebellum and brainstem are intact. The 4th ventricle is midline. The cerebe llopontine angle is unremarkable. Extracranial: The visualized portion of the orbits is intact. Skull: The calvaria is intact. No evidence of skull fracture. CONCLUSION: 1. Stable appearance with no acute intracranial abnormality. . Electronically signed by: Jose Brand MD Board Certified Radiologist 08/14/2018 4:55 PM EST
[2018-08-14] MEDS ORDERED: Acetaminophen 325 MG Tablet PO PRN ×2 (17:42→18:29)
--- NOTE | 2018-08-14 18:31 | P.HPIM ---
History of Present Illness Service: Hospitalist Primary Care Physician: Maxi Branch MD Chief Complaint: Passed out History of Present Illness: Ms. Harvey is a 73-year-old female with a history of chronic alcoholism, seizure disorder, hypertension, hypothyroidism who presents to the emergency department on 08/14/2018 due to a syncopal episode witnessed by her caregiver. Around noon, patient was walking towards the bathroom to have a bowel movement when she told her caregiver that she was not feeling well. Subsequently, she passed out. Her caregiver was able to catch her and lowered her to the floor. Upon regaining her consciousness, patient was coherent. She did not have any loss of bowel or bladder control. No tongue biting. She was somewhat clammy to touch. Patient denies any chest pain, shortness of breath, cough, fever or chills. She denies any changes in bowel or bladder habits. She also denies any history of any heart disease. Past medical history: Breast cancer, hypertension, hypothyroidism, seizure disorder, alcoholism, pancreatitis Past surgical history: Lumpectomy due to breast cancer, hysterectomy, appendectomy Social history: Patient quit smoking 2 years ago. She drinks significant amount -usually Garrett Moreau. She denies using illicit drugs. Family history: Father had renal cell carcinoma, mother had hypertension. Review of Systems Review of Systems: all other systems reviewed are negative [facility] Medical History Medical History Abuse, drug or alcohol (Acute) Appendicitis (Acute) Depression (Acute) History of cancer of left breast (Acute) Hypertension (Acute) Hypothyroid (Acute) Pancreatitis (Acute) Surgical History Surgical History H/O: hysterectomy (Acute) History of lumpectomy of left breast (Acute) Family History Family History Mother Family history of hypertension Father History of prostate cancer Social History Social History Substance History: No History of Abuse Second Hand Smoke Exposure: No Smoking Status: Former smoker Tobacco Type: Cigarettes How Often Do You Have a Drink Containing Alcohol: 4 or more times a week Recent Travel in [facility] within the Last 8 Weeks: No Recent Out of Country Travel within the Last 8 Weeks: No Immunization History Tetanus Immunization: Unsure Medications and Allergies Allergies Allergy/AdvReac Type Severity Reaction Status Date / Time Sulfa (Sulfonamide Allergy Intermediate rash Verified 07/22/18 01:39 Antibiotics) Penicillins Allergy Unknown Weakness Verified 07/22/18 01:39 Home Medications Medication Instructions Recorded Confirmed Type levothyroxine [Synthroid] 75 mcg PO DAILY 03/15/18 08/14/18 History desvenlafaxine succinate 100 mg PO DAILY 04/15/18 08/14/18 History [id number] [Creon] 2 cap PO TID 04/15/18 08/14/18 History losartan 100 mg PO DAILY 04/15/18 08/14/18 History promethazine 25 mg PO Q6H PRN 04/15/18 08/14/18 History phenytoin sodium extended 100 mg PO TID 08/14/18 08/14/18 History phenytoin sodium extended 30 mg PO TID 08/14/18 08/14/18 History [Dilantin] Active Medications: Active Medications Acetaminophen (Tylenol) 650 mg PO Q4H PRN PRN Reason: Headache, fever, pain 1-4 Al Hydroxide/Mg Hydroxide (Milk Of Magnesia Liq) 30 ml PO Q12H PRN PRN Reason: Mild Constipation Sodium Chloride (Ns Inj) 1,000 mls @ 70 mls/hr IV.CONT .[id number] STACY Ondansetron HCl (Zofran Inj) 4 mg IV.PUSH Q6H PRN PRN Reason: NAUSEA OR VOMITING Sodium Chloride (Ns Flush) 2 ml IV.FLUSH BID STACY Sodium Chloride (Ns Flush) 2 ml IV.FLUSH PRN PRN PRN Reason: FLUSH AFTER USING IV ACCESS Physical Exam Vital signs: Last Vital Signs Temp 98.1 F 08/14/18 13:39 Pulse 81 08/14/18 16:24 Resp 15 08/14/18 16:24 BP 158/72 H 08/14/18 16:24 Pulse Ox 99 08/14/18 16:24 Intake & Output 08/12/18 08/13/18 08/14/18 08/15/18 06:59 06:59 06:59 06:59 Intake Total 500 / 500 Balance 500 / 500 Weight 58.967 kg GENERAL: This is a well-nourished, well-developed patient, in no apparent distress. Somewhat hard of hearing. SKIN: No rashes, ecchymoses or lesions. Warm and dry. HEAD: Atraumatic. Normocephalic. No temporal or scalp tenderness. EYES: Pupils equal round and reactive. No injection or drainage. ENT: Nose without bleeding, purulent drainage or septal hematoma. Airway patent. NECK: Trachea midline. No lymphadenopathy. Supple, nontender, no meningeal signs. CARDIOVASCULAR: Regular rate and rhythm without murmurs, gallops, or rubs. No JVD. RESPIRATORY: Clear to auscultation. Breath sounds equal bilaterally. No wheezes , rales, or rhonchi. GASTROINTESTINAL: Abdomen soft, non-tender, nondistended. No guarding. MUSCULOSKELETAL: Extremities without clubbing, cyanosis, or edema. NEUROLOGICAL: Awake and alert. Cranial nerves II through XII intact. No focal neurological deficits. Normal speech. Results Labs CBC & Chem 7: 08/14/18 14:34 08/14/18 14:34 Imaging Impressions Chest X-Ray 08/14/18 14:06 CONCLUSION: No acute cardiopulmonary abnormality is identified. Shoulder X-Ray 08/14/18 14:20 CONCLUSION: 1. Old healed fracture of the right distal clavicle. 2. No acute fracture or dislocation. Thoracic Spine X-Ray 08/14/18 14:20 CONCLUSION: 1. Mild chronic compression deformities involving T11 and T12. 2. Degenerative changes throughout the thoracic spine. 3. No acute compression fracture or subluxation. Head CT 08/14/18 16:04 CONCLUSION: 1. Stable appearance with no acute intracranial abnormality. . Caprini VTE Risk Assessment Caprini VTE Risk Assessment: No/Low Risk (score <= 1) Caprini Risk Assessment Model: Point Value = 1 Point Value = 2 Point Value = 3 Point Value = 5 Age 41-60 Minor surgery BMI > 25 kg/m2 Swollen legs Varicose veins or History of unexplained or recurrent spontaneous Oral contraceptives or hormone replacement Sepsis (< 1 month) Serious lung disease, including pneumonia (< 1 month) Abnormal pulmonary function Acute myocardial infarction Congestive heart failure (< 1 month) History of inflammatory bowel disease Medical patient at bed rest Age 61-74 Arthroscopic surgery Major open surgery (> 45 min) Laparoscopic surgery (> 45 min) Malignancy Confined to bed (> 72 hours) Immobilizing plaster cast Central venous access Age >= 75 History of VTE Family history of VTE Factor V Leiden Prothrombin [id number] Lupus anticoagulant Anticardiolipin antibodies Elevated serum homocysteine Heparin-induced thrombocytopenia Other congenital or acquired thrombophilia Stroke (< 1 month) Elective arthroplasty Hip, pelvis, or leg fracture Acute spinal cord injury (< 1 month) Prophylaxis Regimen: Total Risk Factor Score Risk Level Prophylaxis Regimen 0-1 Low Early ambulation 2 Moderate Order ONE of the following: *Sequential Compression Device (SCD) *Heparin 5000 units SQ BID 3-4 Higher Order ONE of the following medications: *Heparin 5000 units SQ TID *Enoxaparin/Lovenox 40 mg SQ daily (WT < 150 kg, CrCl > 30 mL/min) *Enoxaparin/Lovenox 30 mg SQ daily (WT < 150 kg, CrCl > 10-29 mL/min) *Enoxaparin/Lovenox 30 mg SQ BID (WT < 150 kg, CrCl > 30 mL/min) AND/OR *Sequential Compression Device (SCD) 5 or more Highest Order ONE of the following medications: *Heparin 5000 units SQ TID (Preferred with Epidurals) *Enoxaparin/Lovenox 40 mg SQ daily (WT < 150 kg, CrCl > 30 mL/min) *Enoxaparin/Lovenox 30 mg SQ daily (WT < 150 kg, CrCl > 10-29 mL/min) *Enoxaparin/Lovenox 30 mg SQ BID (WT < 150 kg, CrCl > 30 mL/min) AND *Sequential Compression Device (SCD) Assessment and Plan Plan Ms. Harvey is a 73-year-old female with a history of hypertension, pancreatitis, alcoholism, seizure disorder who presents to the emergency department on 08/14/2018 due to an episode of syncope. Patient apparently had another episode on 08/13/2018. Her syncopal episode today lasted only a few seconds and upon regaining consciousness, patient did not have any confusion. She was coherent. She did not have any tongue biting or loss of control of bladder bowel or bladder. Syncopal episodes Likely neurocardiogenic syncope. Patient experienced 2 syncopal episodes in 2 days. We will obtain an echocardiogram as well as carotid ultrasound. Orthostatic blood pressure Obtain physical therapy consultation. Alcoholism History of pancreatitis We will initiate CIWA protocol. Patient is counseled to abstain from alcohol. Continue folic acid and thiamine. We will give 1 dose of thiamine 500 mg IV today. Seizure disorder Hypothyroidism Hypertension Continue Phenytoin 130mg TID. Continue levothyroxine 75 mcg daily, losartan 100 mg p.o. daily. Patient blood pressure is 150/72 currently. Hypokalemia Mild hypomagnesemia Potassium 3.1 today. Patient received 40 mEq of potassium p.o. in the ED. Magnesium 1.9. Will give 1 g of magnesium sulfate IV. Check CBC, CMP, magnesium level in the morning. Full code. SCDs.
[2018-08-14] MEDS ORDERED: LORazepam 1 MG Tablet PO PRN (19:00)
[2018-08-14] MEDS ORDERED: Haloperidol Inj 5 MG/ML Ampul IV.PUSH PRN (19:00)
[2018-08-14] MEDS ORDERED: Thiamine Inj 500 MG in Sodium Chlor 0.9% Inj 250 ML IV.SIG ONE (20:00)
[2018-08-14] MEDS ORDERED: Mag Sulf 1 gm/100 ml Premix 100 ML IV.SIG ONE (20:00)
[2018-08-14] MEDS: Sod Chloride 0.9% Inj 1,000 ML IV.CONT SCH (20:03)
[2018-08-15] MEDS: Levothyroxine 75 MCG Tablet PO SCH (05:20)
[2018-08-15 07:27] LABS: Baso % (Auto) 0.4 % (0.0-2.0); Eos # (Auto) 0.1 th/mm3 (0.0-0.4); Eos % (Auto) 1.1 % (0.0-4.0); Hematocrit 34.5 % (35.0-46.0); Hemoglobin 12.1 gm/dL (11.6-15.3); Lymph # (Auto) 1.6 th/mm3 (1.0-4.8); Lymph % (Auto) 28.1 % (9.0-44.0); Mean Corpuscular Hemoglobin 36.5 pg (27.0-34.0); Mean Corpuscular Volume 104.3 fL (80.0-100.0); Mean Platelet Volume 7.4 fL (7.0-11.0); Mono # (Auto) 0.6 th/mm3 (0.0-0.9); Mono % (Auto) 10.9 % (0.0-8.0); Neut # (Auto) 3.3 th/mm3 (1.8-7.7); Neut % (Auto) 59.5 % (16.0-70.0); Platelet Count 254 th/mm3 (150-450); Red Blood Count 3.31 mil/mm3 (4.00-5.30); Red Cell Distribution Width 18.3 % (11.6-17.2); White Blood Count 5.6 th/mm3 (4.0-11.0)
[2018-08-15 07:31] LABS: Albumin 2.9 g/dL (3.4-5.0); Anion Gap 8 meq/L (5-15); Aspartate Aminotransferase 28 U/L (15-37); Blood Urea Nitrogen 11 mg/dL (7-18); Calcium 8.4 mg/dL (8.5-10.1); Carbon Dioxide 26.2 meq/L (21.0-32.0); Chloride 107 meq/L (98-107); Glomerular Filtration Rate 84 mL/min (>89); Glucose,Random 83 mg/dL (74-106); Magnesium 2.2 mg/dL (1.5-2.5); Potassium 3.3 meq/L (3.5-5.1); Sodium 141 meq/L (136-145)
[2018-08-15 07:32] LABS: Alanine Aminotransferase 21 U/L (10-53)
[2018-08-15 07:34] LABS: Alkaline Phosphatase 152 U/L (45-117); Total Protein 6.4 g/dL (6.4-8.2)
[2018-08-15] MEDS: Folic Acid 1 MG Tablet PO SCH (08:52)
[2018-08-15] MEDS: Sod Chloride 0.9% Inj 1,000 ML IV.CONT SCH (08:52)
[2018-08-15] MEDS: Phenytoin Sodium 100 MG Capsule PO SCH ×3 (08:52→17:35)
[2018-08-15] MEDS ORDERED: PANCRELIPASE PO SCH (09:00)
[2018-08-15] MEDS ORDERED: DESVENLAFAXINE SUCCINATE 100 MG PO SCH (09:00)
[2018-08-15] MEDS ORDERED: Non-Formulary Drug (Losartan [Losartan] 100 MG) PO SCH (09:00)
[2018-08-15] MEDS ORDERED: DESVENLAFAXINE 100 MG PO SCH (09:00)
[2018-08-15] MEDS ORDERED: LIPASE PROTEASE AMYLASE PO SCH (09:00)
[2018-08-15 10:51] LABS: Magnesium 1.9 mg/dL (1.5-2.5)
[2018-08-15 11:02] LABS: Thyroid Stimulating Hormone 1.58 uIU/mL (0.358-3.740)
--- NOTE | 2018-08-15 15:06 | P.PNIM ---
Subjective Interval history: 73-year-old female admitted with falls and syncopal episode. Caregivers at bedside, case discussed, patient having withdrawal symptoms started on Ativan protocol unable to give much history, per caregivers patient was ambulating day before yesterday and had abdominal cramp severe tried to go to the bathroom and had syncope. Subsequently yesterday she was ambulating and tripped and fell, without loss of consciousness, complaints of dizziness, no shortness of breath or chest pain. Patient has not had any alcohol for 2 days. She normally drinks a liter of bourbon every couple of days. Patient is seen, sedated, no obvious distress she is arousable but sleeps Physical Exam Vital signs: Last Vital Signs Temp 98.3 F 08/15/18 08:00 Pulse 72 08/15/18 08:00 Resp 16 08/15/18 08:00 BP 145/75 H 08/15/18 08:00 Pulse Ox 99 08/15/18 08:00 Intake & Output 08/13/18 08/14/18 08/15/18 08/16/18 06:59 06:59 06:59 06:59 Intake Total 855 / 855 1000 / 1000 Balance 855 / 855 1000 / 1000 Weight 58.97 kg Sedated, 73-year-old white female Heart S1-S2 regular Abdomen soft grimaces with palpation, no obvious mass, nondistended Extremities no clubbing cyanosis no edema, no calf tenderness, occasional abrasion Results Labs CBC & Chem 7: 08/15/18 05:06 08/15/18 05:06 Imaging Imaging: Impressions Shoulder X-Ray 08/14/18 14:20 CONCLUSION: 1. Old healed fracture of the right distal clavicle. 2. No acute fracture or dislocation. Thoracic Spine X-Ray 08/14/18 14:20 CONCLUSION: 1. Mild chronic compression deformities involving T11 and T12. 2. Degenerative changes throughout the thoracic spine. 3. No acute compression fracture or subluxation. Head CT 08/14/18 16:04 CONCLUSION: 1. Stable appearance with no acute intracranial abnormality. . Assessment and Plan Plan SYNCOPE - suspect vasovagal due to abd cramps and or etoh wd - cont fluids supportive care, call precautions, follow up echo, orthostats, pt eval CHRONIC ALCOHOLISM with ACUTE ALCOHOL WITHDRAWALsevere symptoms, start CIWA protocol, thiamine folate, cessation counseling when stable SEIZURE DISORDER on Dilantin continue home dose and HYPOTHYROIDISM -continue Synthroid, check TSH HTN- HYPOKALEMIA mild replaced, PANCREATITISchronic history, with recurrent abdominal pain, check lipase, diet as tolerated, with pancreas DVT prophylaxis subcu heparin Dispo-pending clinical course home with 24-hour caregivers when stable Progress Note: Quality VTE Deep Vein Thrombosis/Pulmonary Embolism Present on Admission: No
--- NOTE | 2018-08-15 15:28 | ECG ---
Date Performed: 08/14/2018 Time Performed: 14:08:16 PTAGE: 73 years EKG: Sinus rhythm MODERATE ST DEPRESSION Since the previous tracing, no significant change noted ABNORMAL ECG PREVIOUS TRACING : 08/14/2018 13.41 DOCTOR: Lucero Caballero Interpretating Date/Time 08/15/2018 15:26:48
--- NOTE | 2018-08-15 15:28 | ECG ---
Date Performed: 08/14/2018 Time Performed: 13:41:02 PTAGE: 73 years EKG: Sinus rhythm WITH SINUS ARRHYTHMIA MINIMAL ST DEPRESSION Since the previous tracing, no significant change noted BORDERLINE ECG PREVIOUS TRACING : 07/22/2018 02.19 DOCTOR: Lucero Caballero Interpretating Date/Time 08/15/2018 15:26:59
--- NOTE | 2018-08-15 18:09 | ECHRPT ---
Indication: SYNCOPE CONCLUSIONS The left ventricular systolic function is normal with an estimated ejection fraction in the range of 60-65%. [id number] mitral valve regurgitation. There is trace tricuspid valve regurgitation. BP: / HR: Rhythm: Sinus MEASUREMENTS (Male / Female) Normal Values Technical Quality:Fair 2D ECHO LV Diastolic Diameter PLAX 4.4 cm 4.2 - 5.9 / 3.9 - 5.3 cm LV Systolic Diameter PLAX 3.2 cm IVS Diastolic Thickness 1.1 cm 0.6 - 1.0 / 0.6 - 0.9 cm LVPW Diastolic Thickness 1.0 cm 0.6 - 1.0 / 0.6 - 0.9 cm LV Relative Wall Thickness 0.5 RV Internal Dim ED PLAX 2.8 cm LVOT Diameter 1.8 cm Aortic Root Diameter 2.8 cm LA Systolic Diameter LX 3.2 cm 3.0 - 4.0 / 2.7 - 3.8 cm M-MODE AV Cusp Separation MM 1.8 cm DOPPLER AV Peak Velocity 117.0 cm/s AV Peak Gradient 5.5 mmHg LVOT Peak Velocity 101.0 cm/s LVOT Peak Gradient 4.1 mmHg AV Area Cont Eq pk 2.2 cm Mitral E Point Velocity 63.9 cm/s Mitral A Point Velocity 71.1 cm/s Mitral E to A Ratio 0.9 LV E' Lateral Velocity 7.6 cm/s Mitral E to LV E' Lateral Ratio 8.4 LV E' Septal Velocity 6.8 cm/s Mitral E to LV E' Septal Ratio 9.4 TR Peak Velocity 148.5 cm/s TR Peak Gradient 8.8 mmHg Right Atrial Pressure 10.0 mmHg Pulmonary Artery Systolic Pressu 18.8 mmHg Right Ventricular Systolic Press 18.8 mmHg PV Peak Velocity 55.3 cm/s PV Peak Gradient 1.2 mmHg FINDINGS LEFT VENTRICLE Normal left ventricular size. Wall thickness is normal. The left ventricular systolic function is normal with an estimated ejection fraction in the range of 60-65%. No regional wall motion abnormalities are present. RIGHT VENTRICLE Normal right ventricular size and systolic function. LEFT ATRIUM The left atrial size is normal. RIGHT ATRIUM The right atrial size is normal. ATRIAL SEPTUM Normal atrial septal thickness without atrial level shunting by limited color doppler interrogation. AORTA The aortic root and proximal ascending aorta are normal in size on limited imaging. MITRAL VALVE Structurally normal mitral valve. Qhuvh-[id number] mitral valve regurgitation. No mitral valve stenosis. AORTIC VALVE Trileaflet aortic valve. Calcification of the non-coronary cusp. No aortic valve regurgitation. No aortic valve stenosis. TRICUSPID VALVE Structurally normal tricuspid valve. There is trace tricuspid valve regurgitation. The estimated pulmonary arterial pressure is 19 mmHg. PULMONARY VALVE The pulmonary valve is not well visualized. VESSELS The inferior vena cava is normal in size. PERICARDIUM No pericardial effusion. Vinicius Rogers DO (Electronically Signed) Final Date:15 August 2018 18:08
[2018-08-15] MEDS: LORazepam 1 MG Tablet PO PRN (22:04)
[2018-08-16] MEDS: Sod Chloride 0.9% Inj 1,000 ML IV.CONT SCH ×2 (02:22→13:43)
[2018-08-16] MEDS: LORazepam 1 MG Tablet PO PRN (02:22)
[2018-08-16] MEDS: Levothyroxine 75 MCG Tablet PO SCH (05:39)
[2018-08-16 07:58] LABS: Anion Gap 7 meq/L (5-15); Blood Urea Nitrogen 10 mg/dL (7-18); Calcium 7.7 mg/dL (8.5-10.1); Carbon Dioxide 24.9 meq/L (21.0-32.0); Chloride 109 meq/L (98-107); Glomerular Filtration Rate Greater Than 89 mL/min (>89); Glucose,Random 94 mg/dL (74-106); Potassium 3.3 meq/L (3.5-5.1); Sodium 141 meq/L (136-145)
[2018-08-16 08:01] LABS: Magnesium 1.9 mg/dL (1.5-2.5)
[2018-08-16 08:11] LABS: Thyroid Stimulating Hormone 2.36 uIU/mL (0.358-3.740)
[2018-08-16] MEDS: Folic Acid 1 MG Tablet PO SCH (08:22)
[2018-08-16] MEDS: Phenytoin Sodium 100 MG Capsule PO SCH ×3 (08:22→18:02)
--- NOTE | 2018-08-16 10:37 | P.PNIM ---
Subjective Interval history: 73yo f admitted w falls and syncopal episode pt seen ad examined, doing better, more alert, denes pain, no sob, no dizziness , no nv, per nursing still a bit unsteady Physical Exam Vital signs: Last Vital Signs Temp 98.9 F 08/16/18 07:28 Pulse 72 08/16/18 08:00 Resp 18 08/16/18 08:00 BP 127/66 08/16/18 07:28 Pulse Ox 97 08/16/18 07:28 Intake & Output 08/14/18 08/15/18 08/16/18 08/17/18 06:59 06:59 06:59 06:59 Intake Total 855 / 855 1999 Balance 855 / 855 1999 Weight 58.97 kg pleasant aaox3 but forgetful heart s1s2 reg lungs clear no wrr abd soft nondt pos bs ext no edema deg changes hands Results Labs CBC & Chem 7: 08/15/18 05:06 08/16/18 06:30 Assessment and Plan Plan SYNCOPE - suspect vasovagal due to abd cramps and or etoh wd - cont fluids supportive care, call precautions, follow up echo, orthostats, pt eval CHRONIC ALCOHOLISM with ACUTE ALCOHOL WITHDRAWALsevere symptoms, start CIWA protocol, thiamine folate, improved SEIZURE DISORDER on Dilantin continue home dose and HYPOTHYROIDISM -continue Synthroid, check TSH HTN- stable HYPOKALEMIA mild replaced, PANCREATITISchronic history, with recurrent abdominal pain, check lipase, diet as tolerated, with pancreas B12 def hx- DVT prophylaxis subcu heparin Dispo-pending clinical course home with 24-hour caregivers tomorrow Progress Note: Quality VTE Deep Vein Thrombosis/Pulmonary Embolism Present on Admission: No
[2018-08-17 03:33] VITALS: RESP 18
[2018-08-17] MEDS: Sod Chloride 0.9% Inj 1,000 ML IV.CONT SCH (03:33)
[2018-08-17] MEDS: Levothyroxine 75 MCG Tablet PO SCH (06:37)
[2018-08-17 07:30] VITALS: BP 165/89; PULSE 74; TEMP 98.6; O2SAT 96
[2018-08-17] MEDS: Folic Acid 1 MG Tablet PO SCH (08:55)
[2018-08-17] MEDS: Phenytoin Sodium 100 MG Capsule PO SCH (08:57)
--- NOTE | 2018-08-17 11:24 | P.DS ---
DS: Providers Date of admission: 08/16/18 09:34 Primary care physician: Maxi Branch MD Brief History from admission: Ms. Harvey is a 73-year-old female with a history of chronic alcoholism, seizure disorder, hypertension, hypothyroidism who presents to the emergency department on 08/14/2018 due to a syncopal episode witnessed by her caregiver. Around noon, patient was walking towards the bathroom to have a bowel movement when she told her caregiver that she was not feeling well. Subsequently, she passed out. Her caregiver was able to catch her and lowered her to the floor. Upon regaining her consciousness, patient was coherent. She did not have any loss of bowel or bladder control. No tongue biting. She was somewhat clammy to touch. Patient denies any chest pain, shortness of breath, cough, fever or chills. She denies any changes in bowel or bladder habits. She also denies any history of any heart disease. Past medical history: Breast cancer, hypertension, hypothyroidism, seizure disorder, alcoholism, pancreatitis Past surgical history: Lumpectomy due to breast cancer, hysterectomy, appendectomy Social history: Patient quit smoking 2 years ago. She drinks significant amount -usually Garrett Moreau. She denies using illicit drugs. Family history: Father had renal cell carcinoma, mother had hypertension. DS: Summary Patient was admitted for syncopal workup. She had mild to severe alcohol withdrawal symptoms and required CIWA protocol. 2D echocardiogram was unremarkable and patient had significant improvement of symptoms with no evidence of arrhythmia or seizure or post ictal. Patient was evaluated by physical therapy and deemed clinically stable for discharge home for outpatient follow-up. I felt the patient's falls are related to her chronic alcoholism, and I had a lengthy discussion with her regarding alcohol cessation, discussed diet activity medication compliance follow-up alcohol cessation, with patient and caregiver at bedside patient is discharged to home with outpatient follow- up. Time Spent with Patient Total time spent providing and/or coordinating discharge services: Greater than 30 minutes Quality: VTE Deep Vein Thrombosis/Pulmonary Embolism Present on Admission: No Exam Narrative Exam Narrative: Pleasant 73-year-old white female Awake alert oriented no acute distress Heart S1-S2 regular 1 out of 6 systolic murmur Lungs clear no wheeze no rhonchi Abdomen soft nondistended positive bowel sounds Extremity no clubbing cyanosis no edema chronic arthritic changes hands Results Impressions ITS Impressions Chest X-Ray 08/14/18 14:06 CONCLUSION: No acute cardiopulmonary abnormality is identified. Shoulder X-Ray 08/14/18 14:20 CONCLUSION: 1. Old healed fracture of the right distal clavicle. 2. No acute fracture or dislocation. Thoracic Spine X-Ray 08/14/18 14:20 CONCLUSION: 1. Mild chronic compression deformities involving T11 and T12. 2. Degenerative changes throughout the thoracic spine. 3. No acute compression fracture or subluxation. Head CT 08/14/18 16:04 CONCLUSION: 1. Stable appearance with no acute intracranial abnormality. . Discharge Plan Discharge Disposition Patient Disposition: Discharge Home Discharge Condition Condition: Stable Discharge Order Discharge Orders: Discharge Order (Routine); Ordered 08/17/18 Ordered By: Beth Benitez Physicians Team Primary Care Provider: Maxi Branch Attending Provider: Beth Benitez Rxs /Orders / Referrals /Forms Prescriptions: Continue phenytoin sodium extended 100 mg Capsule 100 mg PO TID RF: 0 phenytoin sodium extended [Dilantin] 30 mg Capsule 30 mg PO TID RF: 0 levothyroxine [Synthroid] 200 mcg Tablet 75 mcg PO DAILY RF: 0 promethazine 25 mg Tablet 25 mg PO Q6H PRN (Reason: Nausea) RF: 0 losartan 100 mg Tablet 100 mg PO DAILY RF: 0 desvenlafaxine succinate 100 mg Tablet Extended Release 24 Hr 100 mg PO DAILY RF: 0 cacrvq-qhrzcvpp-khwdcsa [Creon] 36,000-114,000- 180,000 unit Capsule,Delayed Release(Dr/Ec) 2 cap PO TID RF: 0 thiamine HCl (vitamin B1) 100 mg Tablet 100 mg PO DAILY 30 Days Qty: 30 RF: 0 folic acid 1 mg Tablet 1 mg PO DAILY 30 Days Qty: 30 RF: 0 Referrals: Maxi Branch MD [Primary Care Provider] - See Instructions ( Please call the physician's office to book the appointment to be seen within [2d].) Discharge Instructions Patient Printed Instructions: Pancreatitis (DC), Hypokalemia (DC), Alcohol Withdrawal (DC) Status ED Status: Left Department Discharge Information Discharge Date/Time: 08/17/18 12:19
== END 2018-08-17 12:19 | disposition home or self-care (01) ==
LOC: NEPE 13:22 → NEDH 13:22 → NEPGCP 18:35
PROVIDERS: ADMIT Internal Medicine; ATTEND Internal Medicine

== ENCOUNTER 2018-08-22 19:55 | Inpatient (IN) ==
[2018-08-22] MEDS ORDERED: Morphine Inj 4 MG/ML Vial IV.PUSH ONE ×2 (20:36→21:43)
[2018-08-22] MEDS ORDERED: Sod Chloride 0.9% Inj 1,000 ML IV.SIG ONE (20:36)
[2018-08-22] MEDS ORDERED: Pantoprazole Inj 40 MG Vial IV.PUSH ONE (20:36)
[2018-08-22 21:09] LABS: Baso # (Auto) 0.1 th/mm3 (0.0-0.2); Baso % (Auto) 0.8 % (0.0-2.0); Eos % (Auto) 0.3 % (0.0-4.0); Hematocrit 35.4 % (35.0-46.0); Hemoglobin 12.2 gm/dL (11.6-15.3); Lymph # (Auto) 1.4 th/mm3 (1.0-4.8); Lymph % (Auto) 9.8 % (9.0-44.0); Mean Corpuscular HGB Conc 34.4 % (32.0-36.0); Mean Corpuscular Hemoglobin 35.5 pg (27.0-34.0); Mean Corpuscular Volume 103.4 fL (80.0-100.0); Mean Platelet Volume 7.2 fL (7.0-11.0); Mono # (Auto) 1.4 th/mm3 (0.0-0.9); Mono % (Auto) 10.3 % (0.0-8.0); Neut % (Auto) 78.8 % (16.0-70.0); Platelet Count 369 th/mm3 (150-450); Red Blood Count 3.42 mil/mm3 (4.00-5.30); Red Cell Distribution Width 16.6 % (11.6-17.2); White Blood Count 13.9 th/mm3 (4.0-11.0)
[2018-08-22 21:30] LABS: Alanine Aminotransferase 24 U/L (10-53)
[2018-08-22 21:33] LABS: Alkaline Phosphatase 150 U/L (45-117); Lipase 2463 U/L (73-393); Total Protein 7.1 g/dL (6.4-8.2)
--- NOTE | 2018-08-22 21:35 | XR ---
EXAM DATE: 08/22/2018 9:28 PM EST AGE/SEX: 73 years / Female INDICATIONS: Upper abdominal pain. CLINICAL DATA: This is the patient's initial encounter. Patient reports that signs and symptoms have been present for 1 day and indicates a pain score of 6/10. MEDICAL/SURGICAL HISTORY: None. None. COMPARISON: [facility], CT ABDOMEN & PELVIS W CONTRAST, 07/22/2018. . FINDINGS: A single erect view of the upper abdomen demonstrates no evidence of free intraperitoneal gas. Severa l healed rib fractures are present bilaterally. No dilated loops of small or large bowel the visualiz ed portion of the abdomen. The visualized lower lungs are clear. CONCLUSION: No evidence of free intraperitoneal gas. Electronically signed by: Sudarshan Delgado MD Board Certified Radiologist 08/22/2018 9:34 PM EST
[2018-08-22 21:38] LABS: Albumin 3.2 g/dL (3.4-5.0); Anion Gap 10 meq/L (5-15); Aspartate Aminotransferase 52 U/L (15-37); Blood Urea Nitrogen 11 mg/dL (7-18); Calcium 8.3 mg/dL (8.5-10.1); Carbon Dioxide 25.6 meq/L (21.0-32.0); Chloride 96 meq/L (98-107); Glomerular Filtration Rate 79 mL/min (>89); Glucose,Random 101 mg/dL (74-106); Magnesium 1.7 mg/dL (1.5-2.5); Sodium 132 meq/L (136-145)
[2018-08-22 21:39] LABS: Potassium 3.4 meq/L (3.5-5.1)
[2018-08-22] MEDS ORDERED: Thiamine Inj 100 MG in Sodium Chlor 0.9% Inj 100 ML IV.SIG ONE (21:43)
--- NOTE | 2018-08-22 21:47 | ED ---
HPI General Chief Complaint: Abdominal Pain Stated Complaint: Abd Pain Time Seen by Provider: 08/22/18 20:08 Source: patient Mode of arrival: ambulatory Limitations: no limitations History of Present Illness HPI narrative: 73-year-old female came to the emergency room with history of severe gastric pain that has been going on for past 48 hours. Has history of acute pancreatitis and is a chronic alcoholic. Patient was slightly tachycardic upon arrival. She is extremely hard of hearing but points of pain to the epigastric area. No radiation of the pain. No aggravating or relieving symptoms identified. No history of nausea or vomiting. No history of diarrhea or constipation. Related Data Home Medications Medication Instructions Recorded Confirmed levothyroxine [Synthroid] 75 mcg PO DAILY 03/15/18 08/22/18 desvenlafaxine succinate 100 mg PO DAILY 04/15/18 08/14/18 losartan 100 mg PO DAILY 04/15/18 08/14/18 promethazine 25 mg PO Q6H PRN 04/15/18 08/14/18 phenytoin sodium extended 100 mg PO TID 08/14/18 08/14/18 Previous Rx's Medication Instructions Recorded [id number] [Creon] 3 cap PO TID #0 cap 08/24/18 Allergies Allergy/AdvReac Type Severity Reaction Status Date / Time Sulfa (Sulfonamide Allergy Intermediate rash Verified 08/22/18 20:06 Antibiotics) Penicillins Allergy Unknown Weakness Verified 08/22/18 20:06 Review of Systems ROS: all other systems reviewed are negative [facility] Medical History Medical History Abuse, drug or alcohol (Acute) Appendicitis (Acute) Depression (Acute) History of cancer of left breast (Acute) Hypertension (Acute) Hypothyroid (Acute) Pancreatitis (Acute) Surgical History Surgical History H/O: hysterectomy (Acute) History of lumpectomy of left breast (Acute) Family History Family History Mother Family history of hypertension Father History of prostate cancer Social History Social History Substance History: No History of Abuse Second Hand Smoke Exposure: No Smoking Status: Former smoker Tobacco Type: Cigarettes How Often Do You Have a Drink Containing Alcohol: 4 or more times a week Recent Travel in [facility] within the Last 8 Weeks: No Recent Out of Country Travel within the Last 8 Weeks: No Immunization History Tetanus Immunization: Unsure Exam Narrative Exam Narrative: GENERAL: Awake, alert, elderly, moderate distress SKIN: Focused skin assessment warm/dry. Multiple healing sores on her body HEAD: Atraumatic. Normocephalic. EYES: Pupils equal and round. No scleral icterus. No injection or drainage. ENT: No nasal bleeding or discharge. Mucous membranes pink and moist. NECK: Trachea midline. No JVD. CARDIOVASCULAR: Regular rate and rhythm. No murmur appreciated. RESPIRATORY: No accessory muscle use. Clear to auscultation. Breath sounds equal bilaterally. GASTROINTESTINAL: Abdomen soft, tender in the epigastric area, nondistended. Hepatic and splenic margins not palpable. MUSCULOSKELETAL: No obvious deformities. No clubbing. No cyanosis. No edema. NEUROLOGICAL: Awake and alert. No obvious cranial nerve deficits. Motor grossly within normal limits. Normal speech. PSYCHIATRIC: Appropriate mood and affect; insight and judgment normal. Course Initial Documented Vital Signs Temperature 99.6 F 08/22/18 20:07 Pulse Rate 108 H 08/22/18 20:07 Respiratory Rate 18 08/22/18 20:07 Blood Pressure 117/71 08/22/18 20:07 Pulse Oximetry 97 08/22/18 20:07 Last Documented Vital Signs Temperature 98.7 F 08/24/18 11:55 Pulse Rate 83 08/24/18 11:55 Respiratory Rate 18 08/24/18 11:55 Blood Pressure 169/70 H 08/24/18 11:55 Pulse Oximetry 98 08/24/18 11:55 Medical Decision Making MDM Narrative Medical decision making narrative: 9:45 PM patient was medicated for pain and IV fluid given. Blood test results are back and lipase is significantly elevated. I went back and reassessed the patient and she says she still in pain. I did let her know about her test results and have decided to admit her. Given another dose of pain medication. Awaiting for the hospitalist to call back. Given her chronic alcoholic status she is at a high risk of withdrawal and DTs. Her home adjunct nursing faculty was in the room and told me that patient drinks heavy and drinks whiskey. Medical Screen Exam Complete: Yes Emergency Medical Condition: Yes Lab Data Result diagrams: 08/23/18 04:15 08/23/18 04:15 Lab Results 08/22/18 08/22/18 08/22/18 Range/Units 20:44 20:44 20:44 WBC 13.9 H (4.0-11.0) th/mm3 RBC 3.42 L (4.00-5.30) mil/mm3 Hgb 12.2 (11.6-15.3) gm/dL Hct 35.4 (35.0-46.0) % MCV 103.4 H (80.0-100.0) fL MCH 35.5 H (27.0-34.0) pg MCHC 34.4 (32.0-36.0) % RDW 16.6 (11.6-17.2) % Plt Count 369 D (150-450) th/mm3 MPV 7.2 (7.0-11.0) fL Neut % (Auto) 78.8 H (16.0-70.0) % Lymph % (Auto) 9.8 (9.0-44.0) % [place] % (Auto) 10.3 H (0.0-8.0) % Eos % (Auto) 0.3 (0.0-4.0) % Baso % (Auto) 0.8 (0.0-2.0) % Neut # (Auto) 11.0 H (1.8-7.7) th/mm3 Lymph # (Auto) 1.4 (1.0-4.8) th/mm3 [place] # (Auto) 1.4 H (0.0-0.9) th/mm3 Eos # (Auto) 0.0 (0.0-0.4) th/mm3 Baso # (Auto) 0.1 (0.0-0.2) th/mm3 WBC Differential . Differential Comment Auto diff final Sodium 132 L (136-145) meq/L Potassium 3.4 L (3.5-5.1) meq/L Chloride 96 L (98-107) meq/L Carbon Dioxide 25.6 (21.0-32.0) meq/L Anion Gap 10 (5-15) meq/L BUN 11 (7-18) mg/dL Creatinine 0.73 (0.50-1.00) mg/dL Estimated GFR 79 L (>89) mL/min POC Glucose (68-110) mg/dl Random Glucose 101 (74-106) mg/dL Calcium 8.3 L (8.5-10.1) mg/dL Magnesium 1.7 (1.5-2.5) mg/dL Total Bilirubin 0.8 (0.2-1.0) mg/dL AST 52 H (15-37) U/L ALT 24 (10-53) U/L Alkaline Phosphatase 150 H (45-117) U/L Troponin I Less than 0.02 L (0.02-0.05) ng/mL Total Protein 7.1 (6.4-8.2) g/dL Albumin 3.2 L (3.4-5.0) g/dL Lipase 2463 H (73-393) U/L Urine Color (Yellw/Straw) Urine Clarity (Clear) Urine pH (5.0-8.5) Ur Specific [place] (1.002-1.035) Urine Protein (Neg-Trace) mg/dL Urine Glucose (UA) (Negative) mg/dL Urine Ketones (Negative) mg/dL Urine Occult Blood (Negative) Urine Nitrate (Negative) Urine Bilirubin (Negative) Urine Urobilinogen (Less than 2) mg/dL Ur Leukocyte Esterase (Negative) Urine RBC (0-3) /hpf Urine WBC (0-5) /hpf Ur Squamous Epith Cells (0-5) /hpf Micro UA Comment Ur Microscopic Review Urine Culture Comments Urine Opiates Screen (Neg) Ur Barbiturates Screen (Neg) Ur Amphetamines Screen (Neg) U Benzodiazepines Scrn (Neg) Urine Cocaine Screen (Neg) U Cannabinoids Screen (Neg) Serum Alcohol Less than 3 (0-5) mg/dL 08/23/18 08/23/18 08/23/18 Range/Units 04:15 04:15 10:49 WBC 9.5 (4.0-11.0) th/mm3 RBC 2.91 L (4.00-5.30) mil/mm3 Hgb 10.7 L (11.6-15.3) gm/dL Hct 30.7 L (35.0-46.0) % MCV 105.4 H (80.0-100.0) fL MCH 36.7 H (27.0-34.0) pg MCHC 34.8 (32.0-36.0) % RDW 16.2 (11.6-17.2) % Plt Count 287 (150-450) th/mm3 MPV 7.2 (7.0-11.0) fL Neut % (Auto) 67.5 (16.0-70.0) % Lymph % (Auto) 21.4 (9.0-44.0) % [place] % (Auto) 10.2 H (0.0-8.0) % Eos % (Auto) 0.4 (0.0-4.0) % Baso % (Auto) 0.5 (0.0-2.0) % Neut # (Auto) 6.4 (1.8-7.7) th/mm3 Lymph # (Auto) 2.0 (1.0-4.8) th/mm3 [place] # (Auto) 1.0 H (0.0-0.9) th/mm3 Eos # (Auto) 0.0 (0.0-0.4) th/mm3 Baso # (Auto) 0.0 (0.0-0.2) th/mm3 WBC Differential . Differential Comment Auto diff final Sodium 141 (136-145) meq/L Potassium 3.8 (3.5-5.1) meq/L Chloride 108 H D (98-107) meq/L Carbon Dioxide 23.1 (21.0-32.0) meq/L Anion Gap 10 (5-15) meq/L BUN 9 (7-18) mg/dL Creatinine 0.68 (0.50-1.00) mg/dL Estimated GFR 85 L (>89) mL/min POC Glucose 91 (68-110) mg/dl Random Glucose 96 (74-106) mg/dL Calcium 8.1 L (8.5-10.1) mg/dL Magnesium (1.5-2.5) mg/dL Total Bilirubin (0.2-1.0) mg/dL AST (15-37) U/L ALT (10-53) U/L Alkaline Phosphatase (45-117) U/L Troponin I (0.02-0.05) ng/mL Total Protein (6.4-8.2) g/dL Albumin (3.4-5.0) g/dL Lipase 815 H (73-393) U/L Urine Color (Yellw/Straw) Urine Clarity (Clear) Urine pH (5.0-8.5) Ur Specific [place] (1.002-1.035) Urine Protein (Neg-Trace) mg/dL Urine Glucose (UA) (Negative) mg/dL Urine Ketones (Negative) mg/dL Urine Occult Blood (Negative) Urine Nitrate (Negative) Urine Bilirubin (Negative) Urine Urobilinogen (Less than 2) mg/dL Ur Leukocyte Esterase (Negative) Urine RBC (0-3) /hpf Urine WBC (0-5) /hpf Ur Squamous Epith Cells (0-5) /hpf Micro UA Comment Ur Microscopic Review Urine Culture Comments Urine Opiates Screen (Neg) Ur Barbiturates Screen (Neg) Ur Amphetamines Screen (Neg) U Benzodiazepines Scrn (Neg) Urine Cocaine Screen (Neg) U Cannabinoids Screen (Neg) Serum Alcohol (0-5) mg/dL 08/23/18 08/23/18 08/23/18 Range/Units 13:10 15:00 15:00 WBC (4.0-11.0) th/mm3 RBC (4.00-5.30) mil/mm3 Hgb (11.6-15.3) gm/dL Hct (35.0-46.0) % MCV (80.0-100.0) fL MCH (27.0-34.0) pg MCHC (32.0-36.0) % RDW (11.6-17.2) % Plt Count (150-450) th/mm3 MPV (7.0-11.0) fL Neut % (Auto) (16.0-70.0) % Lymph % (Auto) (9.0-44.0) % [place] % (Auto) (0.0-8.0) % Eos % (Auto) (0.0-4.0) % Baso % (Auto) (0.0-2.0) % Neut # (Auto) (1.8-7.7) th/mm3 Lymph # (Auto) (1.0-4.8) th/mm3 [place] # (Auto) (0.0-0.9) th/mm3 Eos # (Auto) (0.0-0.4) th/mm3 Baso # (Auto) (0.0-0.2) th/mm3 WBC Differential Differential Comment Sodium (136-145) meq/L Potassium (3.5-5.1) meq/L Chloride (98-107) meq/L Carbon Dioxide (21.0-32.0) meq/L Anion Gap (5-15) meq/L BUN (7-18) mg/dL Creatinine (0.50-1.00) mg/dL Estimated GFR (>89) mL/min POC Glucose 113 H (68-110) mg/dl Random Glucose (74-106) mg/dL Calcium (8.5-10.1) mg/dL Magnesium (1.5-2.5) mg/dL Total Bilirubin (0.2-1.0) mg/dL AST (15-37) U/L ALT (10-53) U/L Alkaline Phosphatase (45-117) U/L Troponin I (0.02-0.05) ng/mL Total Protein (6.4-8.2) g/dL Albumin (3.4-5.0) g/dL Lipase (73-393) U/L Urine Color Yellow (Yellw/Straw) Urine Clarity Clear (Clear) Urine pH 6.0 (5.0-8.5) Ur Specific [place] 1.006 (1.002-1.035) Urine Protein Negative (Neg-Trace) mg/dL Urine Glucose (UA) Negative (Negative) mg/dL Urine Ketones Negative (Negative) mg/dL Urine Occult Blood Negative (Negative) Urine Nitrate Negative (Negative) Urine Bilirubin Negative (Negative) Urine Urobilinogen Less than 2 (Less than 2) mg/dL Ur Leukocyte Esterase Negative (Negative) Urine RBC Less than 1 (0-3) /hpf Urine WBC Less than 1 (0-5) /hpf Ur Squamous Epith Cells 1 (0-5) /hpf Micro UA Comment Culture not ind Ur Microscopic Review Not Reportable Urine Culture Comments Culture not ind Urine Opiates Screen Pos H (Neg) Ur Barbiturates Screen Neg (Neg) Ur Amphetamines Screen Neg (Neg) U Benzodiazepines Scrn Neg (Neg) Urine Cocaine Screen Neg (Neg) U Cannabinoids Screen Neg (Neg) Serum Alcohol (0-5) mg/dL 08/23/18 08/24/18 Range/Units 16:13 11:30 WBC (4.0-11.0) th/mm3 RBC (4.00-5.30) mil/mm3 Hgb (11.6-15.3) gm/dL Hct (35.0-46.0) % MCV (80.0-100.0) fL MCH (27.0-34.0) pg MCHC (32.0-36.0) % RDW (11.6-17.2) % Plt Count (150-450) th/mm3 MPV (7.0-11.0) fL Neut % (Auto) (16.0-70.0) % Lymph % (Auto) (9.0-44.0) % [place] % (Auto) (0.0-8.0) % Eos % (Auto) (0.0-4.0) % Baso % (Auto) (0.0-2.0) % Neut # (Auto) (1.8-7.7) th/mm3 Lymph # (Auto) (1.0-4.8) th/mm3 [place] # (Auto) (0.0-0.9) th/mm3 Eos # (Auto) (0.0-0.4) th/mm3 Baso # (Auto) (0.0-0.2) th/mm3 WBC Differential Differential Comment Sodium (136-145) meq/L Potassium (3.5-5.1) meq/L Chloride (98-107) meq/L Carbon Dioxide (21.0-32.0) meq/L Anion Gap (5-15) meq/L BUN (7-18) mg/dL Creatinine (0.50-1.00) mg/dL Estimated GFR (>89) mL/min POC Glucose 95 89 (68-110) mg/dl Random Glucose (74-106) mg/dL Calcium (8.5-10.1) mg/dL Magnesium (1.5-2.5) mg/dL Total Bilirubin (0.2-1.0) mg/dL AST (15-37) U/L ALT (10-53) U/L Alkaline Phosphatase (45-117) U/L Troponin I (0.02-0.05) ng/mL Total Protein (6.4-8.2) g/dL Albumin (3.4-5.0) g/dL Lipase (73-393) U/L Urine Color (Yellw/Straw) Urine Clarity (Clear) Urine pH (5.0-8.5) Ur Specific [place] (1.002-1.035) Urine Protein (Neg-Trace) mg/dL Urine Glucose (UA) (Negative) mg/dL Urine Ketones (Negative) mg/dL Urine Occult Blood (Negative) Urine Nitrate (Negative) Urine Bilirubin (Negative) Urine Urobilinogen (Less than 2) mg/dL Ur Leukocyte Esterase (Negative) Urine RBC (0-3) /hpf Urine WBC (0-5) /hpf Ur Squamous Epith Cells (0-5) /hpf Micro UA Comment Ur Microscopic Review Urine Culture Comments Urine Opiates Screen (Neg) Ur Barbiturates Screen (Neg) Ur Amphetamines Screen (Neg) U Benzodiazepines Scrn (Neg) Urine Cocaine Screen (Neg) U Cannabinoids Screen (Neg) Serum Alcohol (0-5) mg/dL Imaging Data Radiologist's impression: Abdomen X-Ray 08/22/18 20:36 CONCLUSION: No evidence of free intraperitoneal gas. ECG Data Attestation: I personally reviewed and interpreted this ECG as follows: Interpretation: Twelve-lead EKG was reviewed by me. Normal sinus rhythm, normal axis, nonspecific ST-T wave changes, tachycardia. Heart rate of 102 bpm. Discharge Plan Discharge Disposition Patient Disposition: ED Admit(ED Internal Use Only) Discharge Condition Condition: Good Discharge Order Discharge Orders: Discharge Order (Routine); Ordered 08/24/18 Ordered By: Marcial Cobos ED Use Only Admit Order (Routine); Ordered 08/22/18 Ordered By: Donnell Reyes Physicians Team ED Provider: Donnell Reyes Primary Care Provider: Maxi Branch Attending Provider: Trey Guerrier Status ED Status: Left Department Discharge Information Discharge Date/Time: 08/22/18 22:51
[2018-08-22] MEDS ORDERED: Haloperidol Inj 5 MG/ML Ampul IV.PUSH PRN (23:21)
[2018-08-22] MEDS ORDERED: LORazepam 1 MG Tablet PO PRN (23:21)
[2018-08-22] MEDS ORDERED: Potassium Chlor 20 mEq Premix 20 MEQ/100 ML PIGGYBACK IV.SIG ONE (23:29)
--- NOTE | 2018-08-22 23:31 | P.HP ---
History of Present Illness Service: [facility] Primary Care Physician: Maxi Branch MD History of Present Illness: 73-year-old female with a past medical history significant for hypertension, chronic pancreatitis, alcohol abuse and seizure disorder who presents to the emergency department for the evaluation of abdominal pain. The patient reports she has had epigastric abdominal pain for hours. Her caregiver who is bedside reports that her symptoms are similar to her pancreatitis flareups. The patient does not directly answer my question about alcohol intake however according to the caregiver she drinks approximately a half a gallon of [place] daily. The patient denies any chest pain or shortness of breath. No fever/chills. Reports severe nausea without emesis. No diarrhea. No focal neurologic deficits. Inpatient Certification: I certify that the inpatient services were ordered in accordance with Medicare regulations governing the order. This includes certification that hospital inpatient services are reasonable and necessary and in the case of services not specified as inpatient-only under 42 CFR 419.22(n), that they are appropriately provided as inpatient services in accordance to with the 2-midnight benchmark under 43 CFR 412.3(e) Estimated Total Length of Stay (Days): 2 Plans for Post Hospital Care: Not yet determined Review of Systems All other systems reviewed negative except as stated in HPI PMFSH - History History Provided By: Patient - Medical History Medical History: Medical History (Last Reviewed 08/22/18 @ 23:25 by Amy Springer MD) Abuse, drug or alcohol Appendicitis Depression History of cancer of left breast Hypertension Hypothyroid Pancreatitis - Surgical History Surgical History: Surgical History (Last Reviewed 08/22/18 @ 23:25 by Amy Springer MD) H/O: hysterectomy (Acute) History of lumpectomy of left breast - Family History Family History: Family History (Last Reviewed 08/22/18 @ 23:25 by Amy Springer MD) Mother Family history of hypertension Father History of prostate cancer - Tobacco History Second Hand Smoke Exposure: No Smoking Status: Former smoker Tobacco Type: Cigarettes - Alcohol History How Often Do You Have a Drink Containing Alcohol: 4 or more times a week - Substance Use History Substance History: No History of Abuse - Travel History Recent Travel in the [place] Within the Last 8 Weeks: No Recent Travel Out of the Country Within the Last 8 Weeks: No - Immunization History Tetanus Immunization: Unsure Medications and Allergies Active Medications: Active Medications Sodium Chloride (Ns Flush) 2 ml IV.FLUSH PRN PRN PRN Reason: FLUSH AFTER USING IV ACCESS Allergies Allergy/AdvReac Type Severity Reaction Status Date / Time Sulfa (Sulfonamide Allergy Intermediate rash Verified 08/22/18 20:06 Antibiotics) Penicillins Allergy Unknown Weakness Verified 08/22/18 20:06 Home Medications Medication Instructions Recorded Confirmed Type levothyroxine [Synthroid] 75 mcg PO DAILY 03/15/18 08/22/18 History desvenlafaxine succinate 100 mg PO DAILY 04/15/18 08/14/18 History yshhbu-oiofycja-jhylkwl [Creon] 2 cap PO TID 04/15/18 08/14/18 History losartan 100 mg PO DAILY 04/15/18 08/14/18 History promethazine 25 mg PO Q6H PRN 04/15/18 08/14/18 History phenytoin sodium extended 100 mg PO TID 08/14/18 08/14/18 History phenytoin sodium extended 30 mg PO TID 08/14/18 08/14/18 History [Dilantin] Exam Vital signs: Vital Signs 08/22/18 20:07 08/22/18 22:10 Temperature 99.6 F Pulse Rate 108 H 103 H Respiratory Rate 18 16 Blood Pressure 117/71 115/65 Pulse Oximetry 97 98 Intake & Output 08/22/18 08/22/18 08/23/18 06:59 18:59 06:59 Intake Total 1101 / 1101 Balance 1101 / 1101 Weight 63.503 kg Intake: IV 1101 / 1101 NS Inj 1,000 ML @ Wide Open IV. 1000 / 1000 SIG BOLUS ONE Rx#:[id number] Thiamine Inj 100 MG In NS Inj 101 / 101 100 ML @ 100 mls/hr IV.SIG ONCE ONE Rx#:[id number] Other: Weight On Admission 140 kg Narrative: Gen.: No acute distress Head: Normocephalic. Atraumatic. EENT: Pupils equal round and reactive to light. Nose without drainage. Airway intact. Throat without injection. Cardiovascular: Regular rate and rhythm. No murmurs, rubs or gallops. Respiratory: Lungs clear to auscultation bilaterally. No wheezes or rhonchi. Abdomen: Soft, tender to palpation in the epigastric, nondistended. No peritoneal signs. Musculoskeletal: No gross deformities. No edema. Skin: No obvious rashes or erythema. Neuro: Sensory and motor grossly intact. Cranial nerves II through XII grossly intact. Results - Labs CBC & Chem 7: 08/22/18 20:44 08/22/18 20:44 Labs: Laboratory Results - last 24 hr 08/22/18 08/22/18 08/22/18 20:44 20:44 20:44 WBC 13.9 H RBC 3.42 L Hgb 12.2 Hct 35.4 MCV 103.4 H MCH 35.5 H MCHC 34.4 RDW 16.6 Plt Count 369 D MPV 7.2 Neut % (Auto) 78.8 H Lymph % (Auto) 9.8 [place] % (Auto) 10.3 H Eos % (Auto) 0.3 Baso % (Auto) 0.8 Neut # (Auto) 11.0 H Lymph # (Auto) 1.4 [place] # (Auto) 1.4 H Eos # (Auto) 0.0 Baso # (Auto) 0.1 WBC Differential . Differential Comment Auto diff final Sodium 132 L Potassium 3.4 L Chloride 96 L Carbon Dioxide 25.6 Anion Gap 10 BUN 11 Creatinine 0.73 Estimated GFR 79 L Random Glucose 101 Calcium 8.3 L Magnesium 1.7 Total Bilirubin 0.8 AST 52 H ALT 24 Alkaline Phosphatase 150 H Troponin I Less than 0.02 L Total Protein 7.1 Albumin 3.2 L Lipase 2463 H Serum Alcohol Less than 3 - Imaging Impressions Abdomen X-Ray 08/22/18 20:36 CONCLUSION: No evidence of free intraperitoneal gas. Caprini VTE Risk Assessment Caprini VTE Risk Assessment: Moderate/High Risk (score >= 2) Caprini Risk Assessment Model: Point Value = 1 Point Value = 2 Point Value = 3 Point Value = 5 Age 41-60 Minor surgery BMI > 25 kg/m2 Swollen legs Varicose veins or History of unexplained or recurrent spontaneous Oral contraceptives or hormone replacement Sepsis (< 1 month) Serious lung disease, including pneumonia (< 1 month) Abnormal pulmonary function Acute myocardial infarction Congestive heart failure (< 1 month) History of inflammatory bowel disease Medical patient at bed rest Age 61-74 Arthroscopic surgery Major open surgery (> 45 min) Laparoscopic surgery (> 45 min) Malignancy Confined to bed (> 72 hours) Immobilizing plaster cast Central venous access Age >= 75 History of VTE Family history of VTE Factor V Leiden Prothrombin [id number] Lupus anticoagulant Anticardiolipin antibodies Elevated serum homocysteine Heparin-induced thrombocytopenia Other congenital or acquired thrombophilia Stroke (< 1 month) Elective arthroplasty Hip, pelvis, or leg fracture Acute spinal cord injury (< 1 month) Prophylaxis Regimen: Total Risk Factor Score Risk Level Prophylaxis Regimen 0-1 Low Early ambulation 2 Moderate Order ONE of the following: *Sequential Compression Device (SCD) *Heparin 5000 units SQ BID 3-4 Higher Order ONE of the following medications: *Heparin 5000 units SQ TID *Enoxaparin/Lovenox 40 mg SQ daily (WT < 150 kg, CrCl > 30 mL/min) *Enoxaparin/Lovenox 30 mg SQ daily (WT < 150 kg, CrCl > 10-29 mL/min) *Enoxaparin/Lovenox 30 mg SQ BID (WT < 150 kg, CrCl > 30 mL/min) AND/OR *Sequential Compression Device (SCD) 5 or more Highest Order ONE of the following medications: *Heparin 5000 units SQ TID (Preferred with Epidurals) *Enoxaparin/Lovenox 40 mg SQ daily (WT < 150 kg, CrCl > 30 mL/min) *Enoxaparin/Lovenox 30 mg SQ daily (WT < 150 kg, CrCl > 10-29 mL/min) *Enoxaparin/Lovenox 30 mg SQ BID (WT < 150 kg, CrCl > 30 mL/min) AND *Sequential Compression Device (SCD) Assessment and Plan - Plan Assessment/plan: 1. Acute pancreatitis in the setting of chronic pancreatitis Lipase 2463, was 724 on 08/16 N.p.o. IV fluid hydration Morphine for pain 2. Seizure disorder Continue home Dilantin 3. Alcohol abuse Thiamine/multivitamins IV CIWA protocol Monitor closely for signs of withdrawal 4. Hypothyroidism/hypertension Continue home medications FEN N.p.o. Electrolytes: Status post IV repletion of potassium, monitor BMP SCDs NS at 100 cc/hour
[2018-08-22] MEDS ORDERED: Morphine Inj 4 MG/ML Vial IV.PUSH PRN (23:45)
[2018-08-23 04:57] LABS: Baso % (Auto) 0.5 % (0.0-2.0); Eos % (Auto) 0.4 % (0.0-4.0); Hematocrit 30.7 % (35.0-46.0); Hemoglobin 10.7 gm/dL (11.6-15.3); Lymph % (Auto) 21.4 % (9.0-44.0); Mean Corpuscular HGB Conc 34.8 % (32.0-36.0); Mean Corpuscular Hemoglobin 36.7 pg (27.0-34.0); Mean Corpuscular Volume 105.4 fL (80.0-100.0); Mean Platelet Volume 7.2 fL (7.0-11.0); Mono % (Auto) 10.2 % (0.0-8.0); Neut # (Auto) 6.4 th/mm3 (1.8-7.7); Neut % (Auto) 67.5 % (16.0-70.0); Platelet Count 287 th/mm3 (150-450); Red Blood Count 2.91 mil/mm3 (4.00-5.30); Red Cell Distribution Width 16.2 % (11.6-17.2); White Blood Count 9.5 th/mm3 (4.0-11.0)
[2018-08-23] MEDS: Levothyroxine 75 MCG Tablet PO SCH (05:14)
[2018-08-23 05:16] LABS: Calcium 8.1 mg/dL (8.5-10.1); Carbon Dioxide 23.1 meq/L (21.0-32.0); Potassium 3.8 meq/L (3.5-5.1)
[2018-08-23] MEDS: Phenytoin Sodium 100 MG Capsule PO SCH ×3 (08:58→17:29)
[2018-08-23] MEDS: Multivitamin Inj 10 ML, Folic Acid Inj 1 MG in Sodium Chlor 0.9% Inj 500 ML IV.SIG SCH (09:00)
[2018-08-23] MEDS: Lipase/Protease/Amylase 24/76/120 DR Capsule PO SCH ×3 (10:54→17:29)
--- NOTE | 2018-08-23 11:16 | P.PN ---
Subjective Interval history: Follow-up visit for pancreatitis. Patient seen and examined sitting up in bed and reports she is feeling much better today, states she is hungry. Does have some abdominal pain but improved. Denies any fevers, chills, nausea, vomiting or diarrhea. Patient complaining of itching, denies any past allergies to morphine. Physical Exam Vital signs: Vital Signs 08/22/18 20:07 08/22/18 22:10 08/22/18 23:27 Temperature 99.6 F 98.9 F Pulse Rate 108 H 103 H 96 H Respiratory Rate 18 16 16 Blood Pressure 117/71 115/65 147/70 H Pulse Oximetry 97 98 97 08/23/18 03:38 08/23/18 05:13 08/23/18 08:00 Temperature 98.1 F 98.1 F Pulse Rate 90 80 Respiratory Rate 17 20 18 Blood Pressure 142/67 H 156/80 H Pulse Oximetry 98 99 Intake & Output 08/22/18 08/23/18 08/23/18 18:59 06:59 18:59 Intake Total 1201 / 1201 1000 / 1000 Balance 1201 / 1201 1000 / 1000 Weight 58.6 kg Intake: IV 1201 / 1201 1000 / 1000 LR 1000 mL Inj 1,000 ML @ 100 1000 / 1000 mls/hr IV.CONT .Q10H STACY Rx#: [id number] KCl 20 mEq Premix Inj 20 meq In 100 / 100 100 ml @ 50 mls/hr IV.SIG ONCE ONE Rx#:[id number] NS Inj 1,000 ML @ Wide Open IV. 1000 / 1000 SIG BOLUS ONE Rx#:[id number] Thiamine Inj 100 MG In NS Inj 101 / 101 100 ML @ 100 mls/hr IV.SIG ONCE ONE Rx#:[id number] Other: Date of Last Bowel Movement 08/22/18 08/22/18 Weight On Admission 140 kg Narrative: Gen.: Well-developed, well-nourished female sitting up in bed in no acute distress. Head: Normocephalic. Atraumatic. EENT: Pupils equal round and reactive to light. Nose without drainage. Airway intact. Cardiovascular: Regular rate and rhythm. No murmurs. Respiratory: Lungs clear to auscultation bilaterally. No wheezes or rhonchi. Abdomen: Soft, mild tenderness epigastric area, nondistended. Musculoskeletal: No gross deformities. No edema. Skin: No obvious rashes or erythema. Neuro: Sensory and motor grossly intact. No obvious cranial nerve deficit. Moving all extremities, speech is clear. Results - Labs CBC & Chem 7: 08/23/18 04:15 08/23/18 04:15 Laboratory Results - last 24 hr 08/22/18 08/22/18 08/22/18 20:44 20:44 20:44 WBC 13.9 H RBC 3.42 L Hgb 12.2 Hct 35.4 MCV 103.4 H MCH 35.5 H MCHC 34.4 RDW 16.6 Plt Count 369 D MPV 7.2 Neut % (Auto) 78.8 H Lymph % (Auto) 9.8 [place] % (Auto) 10.3 H Eos % (Auto) 0.3 Baso % (Auto) 0.8 Neut # (Auto) 11.0 H Lymph # (Auto) 1.4 [place] # (Auto) 1.4 H Eos # (Auto) 0.0 Baso # (Auto) 0.1 WBC Differential . Differential Comment Auto diff final Sodium 132 L Potassium 3.4 L Chloride 96 L Carbon Dioxide 25.6 Anion Gap 10 BUN 11 Creatinine 0.73 Estimated GFR 79 L POC Glucose Random Glucose 101 Calcium 8.3 L Magnesium 1.7 Total Bilirubin 0.8 AST 52 H ALT 24 Alkaline Phosphatase 150 H Troponin I Less than 0.02 L Total Protein 7.1 Albumin 3.2 L Lipase 2463 H Serum Alcohol Less than 3 08/23/18 08/23/18 08/23/18 04:15 04:15 10:49 WBC 9.5 RBC 2.91 L Hgb 10.7 L Hct 30.7 L MCV 105.4 H MCH 36.7 H MCHC 34.8 RDW 16.2 Plt Count 287 MPV 7.2 Neut % (Auto) 67.5 Lymph % (Auto) 21.4 [place] % (Auto) 10.2 H Eos % (Auto) 0.4 Baso % (Auto) 0.5 Neut # (Auto) 6.4 Lymph # (Auto) 2.0 [place] # (Auto) 1.0 H Eos # (Auto) 0.0 Baso # (Auto) 0.0 WBC Differential . Differential Comment Auto diff final Sodium 141 Potassium 3.8 Chloride 108 H D Carbon Dioxide 23.1 Anion Gap 10 BUN 9 Creatinine 0.68 Estimated GFR 85 L POC Glucose 91 Random Glucose 96 Calcium 8.1 L Magnesium Total Bilirubin AST ALT Alkaline Phosphatase Troponin I Total Protein Albumin Lipase 815 H Serum Alcohol - Imaging Impressions Abdomen X-Ray 08/22/18 20:36 CONCLUSION: No evidence of free intraperitoneal gas. Assessment and Plan - Plan Acute pancreatitis in the setting of chronic pancreatitis Was 724 on 08/16, this admission lipase 2463--> 815 Trial of clear liquid diet, advance as tolerated, DC IV fluids when tolerating Creon 3 times daily Seizure disorder Continue home Dilantin Alcohol abuse Thiamine/multivitamins IV CIWA protocol Continue to monitor for withdrawal Extensive discussion with patient regarding alcohol cessation. Hypothyroidism/hypertension Continue home medications Pruritus No rashes seen, advised shower and Calazime as needed. DVT prophylaxisambulation Discussed Condition With: Patient and drug abuse social worker Planning: DC tomorrow once tolerating regular diet. Patient has caregivers at home which family arranges, case management has reached out to these.
[2018-08-23] MEDS ORDERED: Morphine Inj 4 MG/ML Vial IV.PUSH PRN (11:17)
[2018-08-23 15:16] LABS: Bilirubin,Urine Negative (Negative); Clarity,Urine Clear (Clear); Color,Urine Yellow (Yellw/Straw); Glucose,Urine (UA) Negative (Negative); Leukocyte Esterase,Urine Negative (Negative); Nitrite,Urine Negative (Negative); Specific Gravity,Urine 1.006 (1.002-1.035); Squamous Epithelial Cell,Urine 1 /hpf (0-5)
[2018-08-23 15:23] LABS: Amphetamine Screen,Urine Neg (Neg); Barbiturate Screen,Urine Neg (Neg); Cannabinoid Screen,Urine Neg (Neg); Cocaine Screen,Urine Neg (Neg)
[2018-08-23 15:26] LABS: Opiate Screen,Urine Pos (Neg)
--- NOTE | 2018-08-23 20:04 | ECG ---
Date Performed: 08/22/2018 Time Performed: 21:14:48 PTAGE: 73 years EKG: SINUS TACHYCARDIA Compared to previous tracing, the patient is now tachycardic ABNORMAL RHY THM ECG PREVIOUS TRACING : 08/14/2018 14.08 DOCTOR: Prudence White Interpretating Date/Time 08/23/2018 20:03:01
[2018-08-23 22:15] VITALS: RESP 18
[2018-08-24] MEDS: Levothyroxine 75 MCG Tablet PO SCH (05:49)
[2018-08-24] MEDS: Lipase/Protease/Amylase 24/76/120 DR Capsule PO SCH ×2 (09:01→12:09)
[2018-08-24] MEDS: Phenytoin Sodium 100 MG Capsule PO SCH ×2 (09:02→12:09)
--- NOTE | 2018-08-24 09:04 | P.DS ---
Date of admission: 08/22/18 21:47 Primary care physician: Maxi Branch MD Attending physician on discharge: Trey Guerrier Anticipated date of discharge: 08/24/18 Brief History from admission: 73-year-old female with a past medical history significant for hypertension, chronic pancreatitis, alcohol abuse and seizure disorder who presents to the emergency department for the evaluation of abdominal pain. The patient reports she has had epigastric abdominal pain for hours. Her caregiver who is bedside reports that her symptoms are similar to her pancreatitis flareups. The patient does not directly answer my question about alcohol intake however according to the caregiver she drinks approximately a half a gallon of [place] daily. The patient denies any chest pain or shortness of breath. No fever/chills. Reports severe nausea without emesis. No diarrhea. No focal neurologic deficits. DS: Summary Hospital Course: 73-year-old female with past medical history significant for HTN, chronic pancreatitis, alcohol abuse, seizure disorder who presented to the emergency department on 08/22 with complaints of abdominal pain. Abdominal x-ray with no evidence of intraperitoneal gas per CBC on admission with mild leukocytosis, CMP with hyponatremia, sodium 132, hypokalemia potassium level 3.4, mild elevated AST at 52 and elevated lipase at 2463. Patient was kept n.p.o. and treated with IV fluids and NS bolus for hyponatremia. Patient's abdominal pain resolved, lipase decreased to 815, hyponatremia resolved with sodium level 141, hypokalemia improved to 3.8. She was able to tolerate a regular diet. She is seen and examined this morning resting in bed comfortably in no acute distress. She reports she had all of her breakfast and denies any nausea, vomiting, diarrhea, cough, shortness of breath, fevers, chills. Does report some itching but states that several days ago she was outside and got bit by mosquitoes. Patient can continue Calazime as needed for itching. manager perioperative has reached out to patient's caregivers which family has arranged at home. Extensive discussion regarding alcohol cessation with patient once again. She voices no acute concerns or complaints, agreeable with discharge. - Time Spent with Patient Total time spent providing and/or coordinating discharge services: Less than 30 minutes - Quality: VTE Deep Vein Thrombosis/Pulmonary Embolism Present on Admission: No Exam Vital signs: Vital Signs 08/23/18 12:00 08/23/18 16:00 08/23/18 20:00 Temperature 98.2 F 98.2 F 97.9 F Pulse Rate 77 75 73 Respiratory Rate 18 16 18 Blood Pressure 150/79 H 144/70 H 154/76 H Pulse Oximetry 98 97 98 08/24/18 00:00 08/24/18 04:05 Temperature 98.7 F 98.6 F Pulse Rate 81 81 Respiratory Rate 18 18 Blood Pressure 122/61 164/91 H Pulse Oximetry 97 100 Intake & Output 08/23/18 08/24/18 08/24/18 18:59 06:59 18:59 Intake Total 1510.2 / 1510.2 1220 / 1220 Balance 1510.2 / 1510.2 1220 / 1220 Weight 58.6 kg Intake: IV 1510.2 / 1510.2 1000 / 1000 LR 1000 mL Inj 1,000 ML @ 100 1000 / 1000 1000 / 1000 mls/hr IV.CONT .Q10H STACY Rx#: [id number] MVI-12 Inj 10 ML Folvite Inj 1 510.2 / 510.2 MG In NS Inj 500 ML @ 125 mls/ hr IV.SIG DAILY STACY Rx#: [id number] Oral 220 / 220 Other: # Voids 4 Date of Last Bowel Movement 08/22/18 08/22/18 # Bowel Movements 0 Narrative: Gen.: Well-developed, well-nourished female sitting up in bed in no acute distress. Head: Normocephalic. Atraumatic. EENT: Pupils equal round and reactive to light. Nose without drainage. Airway intact. Cardiovascular: Regular rate and rhythm. No murmurs. Respiratory: Lungs clear to auscultation bilaterally. No wheezes or rhonchi. Abdomen: Soft, nondistended, nontender, positive bowel sounds. Musculoskeletal: No gross deformities. No edema. Skin: No obvious rashes or erythema. Neuro: Sensory and motor grossly intact. No obvious cranial nerve deficit. Moving all extremities, speech is clear. Results Procedures completed during hospitalization: None Labs on day of discharge: Labs from last 24 hours 08/23/18 08/23/18 08/23/18 16:13 15:00 15:00 POC Glucose 95 Urine Color Yellow Urine Clarity Clear Urine pH 6.0 Ur Specific [place] 1.006 Urine Protein Negative Urine Glucose (UA) Negative Urine Ketones Negative Urine Occult Blood Negative Urine Nitrate Negative Urine Bilirubin Negative Urine Urobilinogen Less than 2 Ur Leukocyte Esterase Negative Urine RBC Less than 1 Urine WBC Less than 1 Ur Squamous Epith Cells 1 Micro UA Comment Culture not ind Ur Microscopic Review Not Reportable Urine Culture Comments Culture not ind Urine Opiates Screen Pos H Ur Barbiturates Screen Neg Ur Amphetamines Screen Neg U Benzodiazepines Scrn Neg Urine Cocaine Screen Neg U Cannabinoids Screen Neg 08/23/18 08/23/18 13:10 10:49 POC Glucose 113 H 91 Urine Color Urine Clarity Urine pH Ur Specific [place] Urine Protein Urine Glucose (UA) Urine Ketones Urine Occult Blood Urine Nitrate Urine Bilirubin Urine Urobilinogen Ur Leukocyte Esterase Urine RBC Urine WBC Ur Squamous Epith Cells Micro UA Comment Ur Microscopic Review Urine Culture Comments Urine Opiates Screen Ur Barbiturates Screen Ur Amphetamines Screen U Benzodiazepines Scrn Urine Cocaine Screen U Cannabinoids Screen - Impressions ITS Impressions Abdomen X-Ray 08/22/18 20:36 CONCLUSION: No evidence of free intraperitoneal gas. Discharge Plan - Discharge Disposition Patient Disposition: 01 Discharge Home - Discharge Condition Condition: Good - Discharge Order Discharge Orders: Discharge Order (Routine); Ordered 08/24/18 Ordered By: Marcial Cobos - Physicians Team Primary Care Provider: Maxi Branch Attending Provider: Trey Guerrier
[2018-08-24] MEDS: Multivitamin Inj 10 ML, Folic Acid Inj 1 MG in Sodium Chlor 0.9% Inj 500 ML IV.SIG SCH (09:06)
[2018-08-24 09:15] VITALS: O2SAT 98
[2018-08-24 11:56] VITALS: BP 169/70; PULSE 83; TEMP 98.7
== END 2018-08-24 13:27 | disposition home or self-care (01) | DRG 439 ==
LOC: NEPC 19:55 → NEDA 21:47 → N06 22:55
PROVIDERS: ADMIT Internal Medicine; ATTEND Internal Medicine
CPT/HCPCS: 74000; 74018; 80048; 80053; 80307; 81001; 82948; 82962; 83690; 83735; 84484; 85025; 90761; 90774; 90775; 90784; 93005; 96361; 96374; 96375; 99285; C8952; C9113; J2270; J2405; J3411; J3480; J7030; J7040; J7120; Q0163